=== PATIENT | male | born 1970 | race Caucasian/White ===

== ENCOUNTER 2023-07-23 12:45 | Outpatient (OUT) | payer MEDICARE, MEDICAID, SELFPAY ==
[2023-07-23 13:05] LABS: Hemoglobin 14.4 g/dL (14.0-18.0)
[2023-07-23] MEDS: ALBUTEROL SULFATE 2.5 MG/3 ML VIAL NEB IH (14:51)
--- NOTE | 2023-07-23 14:54 | RT_ITS ---
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 Findings were considered accurate and reproducible, with exception of DLCO which did not meet ATS standards. Both pre- and post-bronchodilator values utilized for spirometry. Spirometry (based on pre-bronchodilator values): -FEV1/FVC: Reduced @ 46% -FEV1: Very severely reduced @ 28% -FVC: Severely reduced @ 48% -There is a positive bronchodilator response in FEV1 and FVC. Lung volumes by plethysmography (based on pre-bronchodilator values): -RV: Increased @ 134% -TLC: Normal @ 85% Diffusion capacity: -DLCO: Moderate reduction @ 55% when corrected for Hb 14.4g/dL Flow-volume loop: -Very severe obstructive pattern Impressions: -Spirometry consistent with a very severe obstruction and a positive bronchodilator response. An elevated RV suggests air trapping. There is a moderately reduced diffusion capacity. Overall study suggests asthma-COPD overlap or COPD with a positive bronchodilator response. Clinical correlation required. Electronically Signed On 07-23-2023 16:18:47 EDT by Ebenezer Frias
== END 2023-07-23 12:46 | disposition home or self-care (01) ==
LOC: CARD 12:46
PROVIDERS: Visit Provider Internal Medicine
DX: F17.219 Nicotine dependence, cigarettes, with unspecified nicotine-induced disorders (principal); Z12.2 Encounter for screening for malignant neoplasm of respiratory organs; J44.9 Chronic obstructive pulmonary disease, unspecified
CPT/HCPCS: 36415; 85018; 94060; 94726; 94729; 99407

== ENCOUNTER 2023-07-29 08:26 | Outpatient (OUT) | payer MEDICARE, MEDICAID, SELFPAY ==
--- OUTSIDE RECORDS SUMMARY | 2023-07-28 08:47 | XMS_ITS | CCD ---
Author Organization [facility] Inform ion [facility] Care Team Providers Care Assistant Director Of Nursing Name Role Phone Verma, Bernadine Unavailable KAELYN PALMER Unavailable Unavailab KAELYN Mullins Unavailable Unavailab le VERMA, BERNADINE Unavailable Unavailable Verma, Bernadine Primary Care Provider VERMA, BERNADINE Primary Care Unavailable DEBBIE ERWIN Attending Unavailabl e Verma, Bernadine Primary Care Provider Angelo Rios Unavailable VERMA, BERNADINE Primary Care Unavailable MYAH VALLE Attending Unav ailable MYAH VALLE Admitting Unav ailable MYAH VALLE Referring Unav ailable VERMA, BERNADINE Primary Care Unavailable CECI GTZ Admitting Unavailable QUIN REYNA Attending Unavaila ble Verma, Bernadine Primary Care Provider [phone] Al Solomon Unavailable [phone] SELF, SELF Referring Unavailable DORA VILLAGOMEZ Attending Unavailable VERMA, BERNADINE Primary Care Unavailable ANGELO RIOS Attending Unavailabl AL Álvarez Attending Unavailabl e VERMA, BERNADINE Primary Care Unavailable ANGELO RIOS Attending Unavailabl e VERMA, BERNADINE Primary Care Unavailable AL SOLOMON Attending Unavailabl e VERMA, BERNADINE Primary Care Unavailable ANGELO RIOS Attending Unavailabl e VERMA, BERNADINE Primary Care Unavailable DEVMAURYLY, ANGELO K. Attending Unavailpatria saucedo VERMA, [facility] Primary Care Unavailable Bayron SALINAS, [facility] Primary Care Provider [phone] Jean-Paul MENDIETA, Al G Unavailable Bayron SALINAS, [facility] Primary Care Provider Jean-Paul MENDIETA, Al G Unavailable [phone] Jean-Paul MENDIETA, Al G Unavailable Bayron SALINAS, [facility] Primary [facility] Provider [facility] MENDIET[facility], Al G Unavailable SELF, SELF Referring Unavailable DORA VILLAGOMEZ Attending Unavailable BAYRON [facility] Primary [facility] Unavailable DORA VILLAGOMEZ Referring Unavailable KIKI CHILDRESS Primary Care Physician Jj Stevens Primary Care Physician Jj Stevens Admitting Unavailable Jj Stevens Attending Unavailable Jj Stevens Admitting Unavailable Jj Stevens Attending Unavailable Franchesca Don Admitting Unavailable Franchesca Don Attending Unavailable Casey Morse Attending Unavailable Casey Morse Admitting Unavailable Medications Current Medications Medication Drug Class(es) Dates Sig (Normalized) Sig (Original) acetaminophen 500 mg oral tablet (17 sources) acetaminophen (TYLENOL EXTRA STRENGTH) 500 MG tablet Take by mouth. 0 Active 30 actuat aclidinium bromide 0.4 mg/actuat dry powder inhaler (18 sources) Start: 02-16-2020 take 400 ug by inhalation every twelve hours aclidinium bromide (Tudorza Pressair) 400 mcg/actuation AePB Inhale 1 (one) puff (400 mcg total) every 12 (twelve) hours . 1 each 02/16/2020 Active Start: 10-21-2019 take 400 ug by inhal ation every twelve hours aclidinium bromide (Tudorza Pressair) 400 mcg/actuation AePB Inhale 1 (one) puff (400 mcg total) every 12 (twelve) hours . 1 each 10/21/2019 Active Start: 06-04-2018 take 400 ug by inhal ation every twelve hours aclidinium bromide (TUDORZA PRESSAIR) 400 mcg/actuation AePB Inhale 1 (one) puff (400 mcg total) every 12 (twelve) hours . 1 each 06/04/2018 Active Start: 08-11-2017 End: 06-15-2018 take 1 dose by mouth every twelve hours TUDORZA PRESSAIR 400 mcg/actuation AePB INHALE ONE DOSE BY MOUTH EVERY 12 HOURS 1 each 08/11/2017 06/15/2018 Discontinued Start: 08-09-2016 take 1 dose by mouth every twelve hours TUDORZA PRESSAIR 400 mcg/actuation AePB INHALE ONE DOSE BY MOUTH EVERY 12 HOURS 1 each 08/09/2016 Active [id number] 200 actuat albuterol 0.09 mg/actuat metered dose inhaler (20 sources) beta2-Adrenergic Agonist Start: 06-04-2018 take 2 puff(s) by inhalation every six hours as needed for wheezing albuterol 90 mcg/actuation inhaler Inhale 2 (two) puffs every 6 (six) hours as needed for wheezing . 1 Inhaler 06/04/2018 Active Start: 11-27-2017 End: 06-04-2018 take 2 puff(s) by inhalation every six hours as needed for wheezing albuterol 90 mcg/actuation inhaler Inhale 2 (two) puffs every 6 (six) hours as needed for wheezing . 1 Inhaler 06/04/2018 Active Start: 04-01-2017 End: 04-01-2017 albuterol (PROVENTIL) 2.5 mg /3 mL (0.083 %) nebulizer solution 2.5 mg 2.5 mg, Nebulization, Once (RT), 04/01/17 at 1000, For 1 dose, To be administered as part of Pulmonary Function Testing. Given 04/01/2017 09:09 EST 2.5 mg take 2.5 mg by inhal ation every six hours as needed albuterol (PROVENTIL) 2.5 mg /3 mL (0.083 %) nebulizer solution Take 2.5 mg by nebulization every 6 (six) hours as needed for wheezing. 0 Active albuterol (PROVE NTIL HFA;VENTOLIN HFA) 90 mcg/actuation inhaler Inhale 2 puffs every 6 (six) hours as needed for wheezing. Active albuterol 0.833 mg/ml / ipratropium bromide 0.167 mg/ml inhalation solution (12 sources) Anticholinergic, beta2-Adrenergic Agonist Start: 08-03-2021 End: 01-30-2022 take 3 mL by inhalation four times daily albuterol-ipratropium Inh Jamilah 3 mL UD 3 mL, Inhalation, QID for 30 day(s), 360 mL, Refill(s) 5, [facility]/pharmacy #[id number], 178, cm, 08/03/21 10:30:00 EDT, Height/Length Dosing, 175, kg, 08/03/21 10:30:00 EDT, Weight Dosing Start Date: 08/03/21 Stop Date: 01/30/22 Status: Ordered Start: 08-03-2021 End: 01-30-2022 take 3 mL by inhalation four times daily albuterol-ipratropium Inh Jmailah 3 mL UD 3 mL, Inhalation, QID for 30 day(s), 360 mL, Refill(s) 5, [facility]/pharmacy #[id number], 178, cm, 08/03/21 10:30:00 EDT, Height/Length Dosing, 175, kg, 08/03/21 10:30:00 EDT, Weight Dosing Start Date: 08/03/21 Stop Date: 01/30/22 Status: Ordered Start: 02-16-2020 take 3 mL by inhalat ion every six hours as needed ipratropium-albuteroL (DUO-NEB) 0.5-2.5 mg/3 ml nebulizer Take 3 mL by nebulization every 6 (six) hours as needed for wheezing Dx: J44.9 . 270 mL 11 02/16/2020 Active Start: 10-09-2019 ipratropium-al buteroL (DUO-NEB) 0.5-2.5 mg/3 ml nebulizer solution 3 mL Start: 06-17-2019 take 3 mL by inhalat ion every six hours as needed ipratropium-albuteroL (DUO-NEB) 0.5-2.5 mg/3 ml nebulizer Take 3 mL by nebulization every 6 (six) hours as needed for wheezing Dx: J44.9 . 150 mL 6 06/17/2019 Active albuterol 90 mcg/actuation inhaler (4 sources) Start: 06-04-2018 take 2 puff(s) by inhalation every six hours as needed for wheezing albuterol 90 mcg/actuation inhaler Inhale 2 (two) puffs every 6 (six) hours as needed for wheezing . 1 Inhaler 11 06/04/2018 Active Start: 06-04-2018 take 2 puff(s) by in halation every six hours as needed for wheezing albuterol 90 mcg/actuation inhaler Inhale 2 (two) puffs every 6 (six) hours as needed for wheezing . 1 Inhaler 06/04/2018 Suspended atorvastatin 20 mg oral tablet (17 sources) HMG-CoA Reductase Inhibitor Start: 03-24-2017 atorvastatin (LIPITOR) 20 MG tablet azithromycin 250 mg oral tablet (2 sources) Macrolide Antimicrobial Start: 11-24-2019 azithromycin (Zithromax) 250 MG tablet Take 2 pills on day 1, and then 1 pill a day for 4 days. . 6 tablet 0 11/24/2019 Active fluticasone propionate 0.05 mg/actuat metered dose nasal spray (11 sources) Corticosteroid Start: 06-04-2018 End: 06-04-2019 take 2 spray(s) nasal route once daily fluticasone propionate (FLONASE) 50 mcg/actuation nasal spray Instill 2 (two) sprays into each nostril daily . 16 g 12 06/04/2018 Active Fluticasone 500 McG-Salmeterol 50 McG/Dose Blistr Powdr For Inhalation (3 sources) Corticosteroid, beta2-Adrenergic Agonist fluticasone-salme terol (ADVAIR DISKUS) 500-50 mcg/dose diskus inhaler Inhale 1 puff 2 (two) times a day. Active 60 actuat formoterol fumarate 0.005 mg/actuat / mometasone furoate 0.2 mg/actuat metered dose inhaler (16 sources) Corticosteroid, beta2-Adrenergic Agonist Start: 10-21-2019 take 2 puff(s) by inhalation twice daily mometasone-formot justin (Dulera) 200-5 mcg/actuation HFAA Inhale 2 (two) puffs (400 mcg total) 2 (two) times a day Rinse and spit after use . 1 Inhaler 11 10/21/2019 Active Start: 11-27-2017 End: 06-04-2018 take 2 puff(s) by inhalation twice daily DULERA 200-5 mcg/actuation HFAA Inhale 2 (two) puffs (400 mcg total) 2 (two) times a day . 1 Inhaler 11 06/04/2018 Active Start: 03-22-2017 DULERA 200-5 m cg/actuation HFAA furosemide 40 mg oral tablet (17 sources) Loop Diuretic Start: 02-10-2020 furosemide (LA SIX) 40 MG tablet TAKE 1 (ONE) TABLET DAILY NEEDED FOR SWELLING 0 02/10/2020 Active Start: 04-15-2014 End: 10-10-2019 take 1 tablet by mouth once daily furosemide (LASIX) 40 MG tablet Take 40 mg by mouth daily . 0 04/15/2014 10/10/2019 Discontinued glipiZIDE 5 mg oral tablet (7 sources) Sulfonylurea take 1 tablet by mouth twice daily before mealtime glipiZIDE (GLUCOTROL) 5 MG tablet Take 5 mg by mouth 2 (two) times a day before meals . 0 Active 200 actuat ipratropium bromide 0.017 mg/actuat metered dose inhaler (12 sources) Anticholinergic Start: 1 take 2 puff(s) by inhalation twice daily Atrovent HFA 17 mcg/actuation inhaler INHALE 2 (TWO) PUFFS 2 (TWO) TIMES A DAY . 12.9 Inhaler 3 03/13/2020 Active Start: 02-16-2020 End: 02-15-2021 take 2 spray(s) nasal route three times daily ipratropium (ATROVENT) 0.03 % nasal spray Instill 2 (two) sprays into each nostril 3 (three) times a day . 30 mL 11 02/16/2020 02/15/2021 Active Start: 12-01-2019 take 2 puff(s) by in halation twice daily ipratropium (ATROVENT HFA) 17 mcg/actuation inhaler Inhale 2 (two) puffs 2 (two) times a day . 1 Inhaler 3 12/01/2019 Active isopropyl alcohol 0.7 ml/ml medicated pad (5 sources) Start: 12-19-2019 Alcohol Prep P ads PadM USE 1 PAD DAILY 0 12/19/2019 Active ammonium lactate 120 mg/ml topical lotion (7 sources) Start: 08-11-2019 ammonium lacta te (LAC-HYDRIN) 12 % lotion 3 ml liraglutide 6 mg/ml pen injector (17 sources) GLP-1 Receptor Agonist Start: 03-22-2017 VICTOZA 2-ACOSTA 0.6 mg/0.1 mL (18 mg/3 mL) Pen Inject 1.2 mg under the skin daily . 0 03/22/2017 Active Start: 03-22-2017 VICTOZA 2-ACOSTA 0.6 mg/0.1 mL (18 mg/3 mL) Pen lisinopril 2.5 mg oral tablet (7 sources) Angiotensin Converting Enzyme Inhibitor take 1 tablet by mouth once daily lisinopriL (PRINIVIL,ZESTRIL) 2.5 MG tablet Take 2.5 mg by mouth daily . 0 Active metFORMIN hydrochloride 1000 mg oral tablet (17 sources) Biguanide Start : 08-16 take 1 tablet by mouth twice daily at mealtime metFORMIN (GLUCOPHAGE) 1000 MG tablet Take 1,000 mg by mouth 2 (two) times a day with meals . 0 08/16/2016 Active methylPREDNISolone 4 mg oral tablet (2 sources) Corticosteroid Start : 08-03 End: 08-09 Medrol 4 mg Tab = 1 packet(s), Oral, As Directed, as directed on package labeling, X 6 day(s), # 21 tab(s), Refills(s) 0, Pharmacy: [facility]/pharmacy #[id number], 178, cm, 08/03/21 10:30:00 EDT, Height/Length Dosing, 175, kg, 08/03/21 10:30:00 EDT, Weight Dosing Start Date: 08/03/21 Stop Date: 08/09/21 Status: Ordered Start: 10-09-2019 End: 10-09-2019 methylPREDNISolone sod suc(P F) (SOLU-medrol) Injection 125 mg montelukast 10 mg oral tablet (20 sources) Leukotriene Receptor Antagonist Start: 11-27-2017 End: 06-04-2018 take 1 tablet by mouth once daily montelukast (SINGULAIR) 10 mg tablet Take 1 (one) tablet (10 mg total) by mouth nightly . 30 tablet 11 06/04/2018 Active take 1 tablet by mouth once nestor elukast (SINGULAIR) 10 mg tablet Take 10 mg by mouth nightly. Active omeprazole 40 mg delayed release oral capsule (19 sources) Proton Pump Inhibitor Start: 01-21-2018 take 1 capsule by mouth once daily omeprazole (PRILOSEC) 40 MG capsule Take 40 mg by mouth daily . 0 01/21/2018 Active take 1 capsule by mouth once diego ly omeprazole (PRILOSEC) 20 MG capsule Take 20 mg by mouth daily. Active penicillin v potassium 500 mg oral tablet (1 source) Start: 06-15-2018 End: 06-22-2018 take 1 tablet by mouth four times daily penicillin v potassium (VEETID) 500 MG tablet Take 1 (one) tablet (500 mg total) by mouth 4 (four) times a day for 7 days . 28 tablet 0 06/15/2018 06/22/2018 Active predniSONE 20 mg oral tablet (14 sources) Start: 11-21-2020 predniSONE (DE LTASONE) 20 MG tablet Indications: Chronic obstructive pulmonary disease with acute exacerbation (HCC) TAKE 2 TABLETS BY MOUTH FOR 4 DAYS THEN 1 TABLET FOR 4 DAYS . 12 tablet 0 11/21/2020 Active Start: 05-30-2020 End: 11-21-2020 predniSONE (DELTASONE) 20 MG tablet Indications: Chronic obstructive pulmonary disease with acute exacerbation (HCC) Take 2 tabs x 4 days then 1 tab x 4 days . 12 tablet 0 08/18/2020 11/21/2020 Discontinued Start: 11-24-2019 predniSONE (DE LTASONE) 10 MG tablet Take 2 pills daily for 5 days, then take 1 pill daily for 5 days, and then stop. . 15 tablet 0 11/24/2019 Active Start: 10-10-2019 take 4 tablets by mo [facility] once daily, then take 2 tablets by mouth once daily, then take 1 tablet by mouth once daily predniSONE (DELTASONE) 10 MG tablet Take 4 tabs PO daily x 3 days, then 2 tabs PO daily x 3 days, then 1 tab PO daily x 3 days . 21 tablet 0 10/10/2019 Active Start: 10-10-2019 End: 10-10-2019 take 2 tablets by mouth once daily predniSONE (DELTASONE) 20 MG tablet Take 2 (two) tablets (40 mg total) by mouth daily for 5 days Start: 10/10/19. 10 tablet 0 10/10/2019 10/10/2019 Discontinued TUDORZA PRESSAIR 400 mcg/actuation AePB (1 source) Start: 08-09-2016 take 1 dose by mouth every twelve hours TUDORZA PRESSAIR 400 mcg/actuation AePB INHALE ONE DOSE BY MOUTH EVERY 12 HOURS 1 each 08/09/2016 Active Completed/Discontinued Medications Medication Drug Class(es) Dates Sig (Normalized) Sig (Original) aspirin 81 mg chewable tablet (1 source) Platelet Aggregation Inhibitor, Nonsteroidal Anti-inflammatory Drug Start: 10-09-2019 End: 10-09-2019 aspirin chewable tablet 324 mg Start: 10-09-2019 End: 10-09-2019 aspirin chewable tablet 324 mg betamethasone 0.5 mg/ml / clotrimazole 10 mg/ml topical cream (5 sources) Azole Antifungal, Corticosteroid Start: 08-21-2018 End: 10-10-2019 clotrimazole-betamethasone (LOTRISONE) cream Apply to jamie rectal area three times a day for four weeks 0 08/21/2018 10/10/2019 Discontinued 60 actuat budesonide 0.16 mg/actuat / formoterol fumarate 0.0045 mg/actuat metered dose inhaler (2 sources) Corticosteroid, beta2-Adrenergic Agonist Start: 03-01-2019 End: 02-29-2020 take 2 puff(s) by inhalation twice daily budesonide-formoterol (Symbicort) 160-4.5 mcg/actuation inhaler Inhale 2 (two) puffs 2 (two) times a day . 1 Inhaler 11 03/01/2019 02/29/2020 Suspended 12 hr buPROPion hydrochloride 150 mg extended release oral tablet (14 sources) Aminoketone Start: 12-22-2017 End: 06-15-2018 take 1 tablet by mouth twice daily buPROPion (WELLBUTRIN SR) 150 MG 12 hr tablet TAKE ONE TABLET BY MOUTH TWICE A DAY 60 tablet 12/22/2017 06/15/2018 Discontinued Start: 11-25-2016 End: 10-10-2019 take 1 tablet by mouth every twelve hours buPROPion (WELLBUTRIN SR) 150 MG 12 hr tablet Take 150 mg by mouth. 0 11/25/2016 10/10/2019 Discontinued Start: 11-25-2016 End: 11-25-2017 take 1 tablet by mouth twice daily buPROPion (WELLBUTRIN SR) 150 MG 12 hr tablet Take 1 (one) tablet (150 mg total) by mouth 2 (two) times a day. 60 tablet 11 11/25/2016 11/25/2017 Active docusate sodium 50 mg / sennosides, correction 8.6 mg oral tablet (10 sources) Start: 08-16-2016 End: 10-10-2019 senna-docusate (SENNA-S) 8.6-50 mg Take by mouth. 0 08/16/2016 10/10/2019 Discontinued microencapsulated potassium chloride 20 meq extended release oral tablet (19 sources) Start: 04-15-2014 End: 10-10-2019 take 1 tablet by mouth once daily, then take 1 tablet by mouth potassium chloride SA (K-DUR,KLOR-CON) 20 MEQ tablet Take 20 mEq by mouth daily . 0 04/15/2014 10/10/2019 Discontinued Sodium Chloride (1 source) Start: 10-09-2019 End: 10-10-2019 sodium chloride (PF) (NS) flush 5 mL triamcinolone acetonide 1 mg/ml topical cream (3 sources) Corticosteroid Start: 02-12-2020 End: 06-16-2020 triamcinolone (KENALOG) 0.1 % cream umeclidinium (2 sources) Anticholinergic Start: 03-01-2019 take 1 puff(s) by inhalation once daily umeclidinium (Incruse Ellipta) 62.5 mcg/actuation DsDv Inhale 1 puff daily . 1 each 03/01/2019 Suspended Start: 03-01-2019 take 1 puff(s) by in halation once daily umeclidinium (Incruse Ellipta) 62.5 mcg/actuation DsDv Inhale 1 puff daily . 1 each 03/01/2019 Active Problems Active Problems Problem Classification Problem Date Documented Da te Episodic/Chronic Chronic obstructive pulmonary disease and bronchiectasis (20 sources) Centriacinar emphysema; Translations: [Acute exacerbation of chronic obstructive airways disease] Onset: 11-25-2016 11-25-2016 Chronic Disorders of teeth and jaw (2 sources) Other specified disorders of teeth and supporting structures; Translations: [Other specified disorders of teeth and supporting structures] Onset: 06-15-2018 Nonspecific chest pain (1 source) Chest pain; Translations: [Chest pain, unspecified type] Episodic Screening or history of mental health and substance abuse (16 sources) Tobacco user; Translations: [Tobacco abuse disorder] Onset: 11-25-2016 11-25-2016 Chronic Substance-related disorders (4 sources) Cigarette smoker ; Translations: [Nicotine dependence, cigarettes, uncomplicated] Onset: 04-01-2017 04-01-2017 Chronic Unclassified (20 sources) Obstructive sleep apnea syndrome; Translations: [Obstructive sleep apnea (adult) (pediatric)] Onset: 11-25-2016 11-25-2016 Chronic Unclassified (1 source) ERRONEOUS ENCOUNTER--DISREGAR D Past or Other Problems Problem Classification Problem Date Documented Da te Episodic/Chronic Disorders of teeth and jaw (1 source) Toothache; Translations: [Pain, dental] Episodic Other lower respiratory disease (16 sources) Paroxysmal nocturnal dyspnea; Translations: [Dyspnea, unspecified] Onset: 01-23-2018 01-23-2018 Episodic Residual codes; unclassified (5 sources) Tobacco user; Translations: [Tobacco use] Onset: 11-25-2016 Episodic Substance-related disorders (13 sources) Cigarette smoker ; Translations: [Cigarette Smoker] Onset: 04-01-2017 04-01-2017 Episodic Unclassified (20 sources) Edema of lower extremity; Translations: [Cigarette smoker ] Onset: 11-25-2016 11-25-2016 Episodic Results Test Name Value Interpretation Reference Range Facility Physician Orderon 03-28-2023 Physician Order [id number] #1.00TIFF [facility] Consent for Treatmenton 11-26 Consent for Treatment [id number] #1.00TIFF [facility] Physician Orderon 12-23-2022 Physician Order [id number] 8#1.00TIFF [facility] XR Chest 2 Viewson 3 XR Chest 2 Views Exam Date/Time: 12/23/2022 11:45 EDT Reason for Exam: J44.1 Report IMPRESSION: MINIMAL LEFT BASILAR ATELECTASIS. CLINICAL INFORMATION: J44.1 COMPARISON: 08/16/2022. FINDINGS: Two views of the chest were obtained. Heart and mediastinum appear normal. The previously seen minimal discoid atelectasis in the left midlung is no longer identified. There is minimal left basilar atelectasis. The lungs appear clear, otherwise. Visualized bony thorax and remainder of the chest appears unremarkable. Ordering Provider: Casey Morse FINAL REPORT Dictated: 12/23/2022 1:07 pm Van Moses M.D. Signed (Electronic Signature): 12/23/2022 1:07 pm Signed by: Van Moses M.D. Transcribed by: ELIZABETH Technologist: GISELLE Technical Comments Radiation Dose: Ka,r in mGy = . DAP = . Normal [facility] Consent for Treatmenton 07-26 Consent for Treatment [id number] #1.00CD:127 [facility] Physician Orderon 08-16-2022 Physician Order [id number]#1.00CD:127 Normal [facility] XR Chest 2 Viewson XR Chest 2 Views Exam Date/Time: 08/16/2022 10:45 EDT Reason for Exam: J44.1 Report IMPRESSION: SHALLOW INSPIRATORY VOLUMES WITH MINIMAL PROBABLE LEFT MID TO LOWER LUNG ZONE ATELECTASIS. EXAM: XR Chest 2 Views DATE: 08/16/2022 CLINICAL HISTORY: J44.1. COMPARISON: 05/22/2022. TECHNIQUE: Upright PA and lateral radiographs of the chest were obtained. FINDINGS: Shallow inspiratory volumes are present with minimal probable atelectasis of the lateral left mid to lower lung zone. Mild probable atelectasis or scarring of the right lung base appears similar. There is no other significant infiltrate, cardiomegaly, vascular congestion, sizable pleural effusion, pneumothorax, or displaced fractures identified. Ordering Provider: Franchesca Don FINAL REPORT Dictated: 08/16/2022 11:31 am Brian Barboza MD Signed (Electronic Signature): 08/16/2022 11:31 am Signed by: Brian Barboza MD Transcribed by: ELIZABETH Technologist: HH Technical Comments Radiation Dose: Ka,r in mGy = na DAP = na Normal [facility] Coding Summary.on 05-30-2022 Coding Summary. CD:[id number] Ww+PGhlYWQ+WX9ELLBxG 00fkJGioW5oH9MMKEdVX ywgQVBQTElOSyIgbmFtZ I0arMBkILXa IC8+NG7oHPYxZpmwfUTi m5W0gRS2G23xch3bTNte zIL6EKFtGyUbwffgv0mv yKm6SUsdKpmqEbJu CEVqkG37UDL0jA82Lb65 vIBbbTIyr9fmxAp3QnQr BKVmDVU1iRtmKAlgm6Yw QMIuC52wdWWst9T0 IGNvbGxhcHNlOyBlbXB0 vG4tCUmzpprvj2uuftbe Cvq2td60zMHat7H5aKM6 D8WgyjC9EFRdrYXo CughaMIXsZ6mhcfvk3or eilrGuJiQJWtXNh0IVu0 IKJugRbbPsGsSB84JRL2 BYHewkGtP3ZyXCYq rNpxDmY8w0M0Lu1SU3JU VhzeY0JRNGMSURgimSF+ DV26kn11W3IzOwecXca3 KGIdCGV9rEA7lP5j CBWwWHgrb7C7wSD5J3Po ytHtyt5fy6iyQJZjBUsn T16zvRMrq3Z4XLCltYV7 UKBwbGjbUoAdlZ59 Oyc+AFHljFvkg6IeAuce k2skb4ygtMz8MikfSJHj nxRabUslWON0x4GwVw5i HIQtdDC0lXE3bP7k DnCeSdE7MJuoC208LsJh lIRlFurrH76oJ1FcnAJ+ TTCzWmz1DGIebBhlQD3e F0LiRNVowfrulUFb uPmpXH0oFQXuhmwbSSVg uO9vHXMhB3m5GrWpPaM2 GSfyJ6NwGQIjbmewRg57 uY7rAoCaZrY6JRuj W5LqsmD2YCUpeEVlZCdd ZFL0L92jw5J8KSEaEQXv KAF7rND0mK4maMczgwtx bGVmdDsgdmVydGlj CIaaYFoaK509EWIqfIsj PkNvZGluZyBEYXRlOiAg MDQvMDYvMjAyMzwvdGQ+ SDSiGIX4tWifHSRp nDZjWQekTo2phRifhYcr OU5rCWHgowyjYUKwwG5h CDZfoZPpgKecEM8cKTQg iiubx288MnOiMBL5 RTZaaJMlJ5CbcF2yZhIj KXMhLRAyL1UdvMFgADie M291KSvhDlN8BZQxyhSp U8YuXPPqnRnxJoI4 c4H3Or9Ko4SpcfwbP8Vo yJDoXmLtLgytKCl4K8Yl PjwvdHI+UE34OIAiYW40 GMm9TMK1vJusBNdw GKPfX0UlcP3xHcJhZGWg ZGRkOyc+PHRhYmxlIHdp ZHRoPScxMDAlJyBzdHls GC0fQe5iJWNwIOMs uTwzySIpWgIsm6wsYZJp WIwaEK1lwJtwI5HtjOI9 BQDhb2b4So91D91gV0Ee dXA+OEKwfEL1bXA4 kB9yVhWiLsM5RAfrS854 DvQxbAZlCojhp5tfg0nx oNk4VdI8JBWumfQrnYxf NAH9c2JkLt38H48g IHdpZHRoPSIxNSUiIHZh qDlbqt7nnU6cCj8+PGNv ySO2jJR6jP4hOxZpGfJ3 PLsxE267GrOujGTm Djxtx0fym1fnlFa3UjIp AHAhhuMytShdBVU2n7Lc Vb33S3RaqZiup2DqXkn5 gi18nQXmz6Y3cSY6 I2BdHYHhmlzqpYOhvCxi NK9uSEZvqnekXZKpcD8p SNJxK4h5KaYwCdS6TCsy V0QnbrW7XCRzgWPb KZEbwNVWaP4likoum3nz lryoEzGnUDUiCOj2ESk5 XZHydZjuGiFgSIV0PpU5 BHX5hCYryH2fpSpv mzmovM2vUod+YQM7nAQr sELFOK2lLwsoaFB+PHRk TAZ9eGjiSOieFXKihR6k OJIvM1k7MkJyHyN3 NQlnB4NtliN0AOQgkEYs GDWpvLZTxC5khpqry1xu nstwAbVnDCSvXGo2YKi8 LWFsaWduOiBsZWZ0 JjQ1MFO5pDDleE1joUxz xgaxdU5iOev+QmlydGgg BZR0VFr5I7OcVul9NMHl iGqmOV2viXQaCPbf Ns0bqKqiyPxpDH3sVWJx mxmvb771LhHkt0phUFNw rIJdBMsvLJW2Q60pn7H4 ULPaIQFrQBI4zZC3 oL4mfLpannoglUEhrRoo kdEmzBrmWOlzRDhqT000 IKPryEgxWwQdBQf7Q2Uk Idj5NXFqpLgxNP7p dNUcOAsoKy3kiQapjTfo OJ8sYMAosuuos278ItZi p3chHNDsqTJzURtmHEZ0 Y23ds2R5AXTnOHZl OVJ7hLL2dU5hhBolgxvw bGVmdDsgdmVydGljYWwt TFgyO728DDYouFefSrHr kGz0D5DyAie2OZFg bAnoXY9pvXYlNYodPi9s bGqauUpuAK6bBPGocdej o546OnExf8dkUWRitBWh XAfkCLB3M87rp3O6 MXAqVFRjMOZ4uAO0iW0u bGlnbjogbGVmdDsgdmVy dQqfAQlfJDcsK035DXKx cDsnPlBhdGllbnQg HHngEIo7Q9EuLikvsOB+ ON95FFQrJU05yUQqtMEx n8nfpXj3KnKvNANfCKU6 gOqdBZlue4QyIUHy K62bdJGab1X3TCObqOqw qANgOsGifQX0cA7bVKwa acozy5fklcunTofrq9dt zk78vS76V02cWYyu ZHRoPSIzMCUiIHZhbGln vd8gaJ9cVz3+PGNvbCB3 rOO9kA6yCNGrAuW3LRcb Q387ZhPflMArUngw z6clk8lkuNt3VrK7FHHs yfCzyAqsUEM3g1IiSp30 Y03aEMuwQYBqOJViMBEx ARDtnOlhvl3vpP9u Ii8+SDJepIW6aHI5vV2c FtFuBgX2IReiH605RlPi fBIvDgenW93eM2BllKV+ GDKrBka6FCZgrHvu TS5wnGWqEFhbPu8rDDT1 KbVhPxFrCCbtD5NrVZLq rdflnaaoaHS2PUMzIFOq pD08Zi0qhUqxPTRz gFAWjD2eudrrh4nzkhql WpRrKGSvHTu4BRm2PBQs uHmhUyYbOIN2AhY3IDH0 uUIqmF3wpRawawzi mA3fG1CfLFSoljmeSu58 cA0kZtXlLrP7RRywGei+ DsKDYckCSBflMOEZKA3G BMTeUZqPJJ53H9Vr Dkl6SILgcIrgHJ9jgTXv JLtoUt0zeSqczOddTJ5q HNQdxonmCSSypD6qFQLs eGOgmSlsGO8cAEXt ykkaf588ZhBsWPD0JRSa yPSbN9OquO4pSkEuTEQt VTUmY6UrbWBeZUcoV645 LHifDuF5CMIctoFb A7ZkBDRnnDfsDrS8t5I1 Ju6rYA7zUH2qPYjjIO26 KM94xXXcf3Y4vVF4G3Il ZGRpbmctcmlnaHQ6 DEVrIBPguH06bUWmRTrw Xp4mg5I4l331DKYqTNCh oV05Ur0umEadSOTpdPZY eK3trlcqq7jvggnk PcBrTZGhHAe2UAw3KSQy eBhdAzAkUAC1XzN6TNM8 hUKwbW8ovWrallylgF0n Oyc+NTIgWWVhcnM8 A6EwJbp0RSGfxKgdTE8z nVThTNdxAj8glLtseRzy GO8nELDfjcusWJDgdS9o NHSsvPXrjImsVQ7m UJGglzams800OcHoGXE0 TSKcpTObK9EqeU7qJnKw QCMnNIWhD1GzsGVjEPyz H450WSpaUiB8RLNf ldWmQ0IcSOQtfTduQiJ0 h9W8Zm9SFUhzJH00NQ39 wLJmp8X3vTE3O5HuYSLa ijeynzebrOO9GHJs RGKolJ62hCQcBZodNn0q j9A7o014TDDcNGXhdA12 Ph3feNkxVWYyfYVNeK5n wwgvu0hqmvcuObUu UAOxXMz5SQb8OYRuwYyf EzOiNDK0WqR2SQN9fDYc dT3noDqdjiokzZ1yDqp+ P7T2lLV4cYVbhAlk dGQ+TM63su55H0NlYpqu Msm9GXWoQNA2zBO0oD4g UIRyDMacu0Z5iSH1L1Se jgDxhc4dm3oeXDGp WSxxP33ruAUmg8N0SWTv uTR9ETTtlJdhHvLobQ36 Oyc+CGFsqHuog6LiPxdr b2hzk4fmkGf9EmYq CCDlgyTtfBigLDM5w9De Ho21T52bNHrzINBkUUKo NFEmALGdoOfkyv8xaQ1p Ii8+JGNlyYD1cZO1 kA4tRyPdEgA2XUorY481 YvRgoXMoOqybt8yqx5jv tNm1FjOhVVKjtoQnaYwu TAH1y9IcRw27X5Wl vIchi7KuFps4eg32eLXr y5S9fPV3E3VqEQBjtqba vGRejVarWE4gDSJytyih PUTukC0lVLPwS7m3 EaBcHvQ3HTtkF9DoxyY2 OACfpPBnUPPkvAMVeI4v jzkqd1yeerkyXbCwETKt JZy1ENu9HVYooLiq GpJfFZD6OzL7AGU5mXWj iO6ogFhoytfnnH9vDdi+ ABr4n0sxgHDiZZ7vbPY5 ZK97NE96tNZzd9N0 qXD0W6GvSGFpvtmzwouo xQP0JYBkTNRqoY96Uv6q nStxIv3aHAMlLLA1JYCk sBYmL6MjzB6mZuDv GCDhTUYsS9GyiTEqDYnm W976RSqvQrU2KTGfjcSo Z4MuIBXcnIudMeF3d9J6 On1SOD63VB23CA88 uCZci6H4lCT1S7WrSVSq bbtlkuglaQK3ZBElJLIn xY23Mr2tcZzgSv5kAEWl UOZ3APCggLVzI8Vf lO3kJzYjSOCgNQZsA8Zs zAQjAAaqJ833FFzoFxE5 VUBvpdLtT3JuHYRqcYxq EhU0e1L2Kx5AAr35 EW10EG06vBFba4X7lMR0 T3QgJLAjxrygwrtktWJ5 EDInOXCvgQ65Xq9goGtj Pc2kRLBtFUC7WDPi uHEjH2NvhA0uNtQeTATw NIDnJ9QhfEPmZJluO402 GWpwHlB4EHLhrkPkN9Vo QIGjhZpcBgJ4w4L2 Ri2CSUopysu4M3TlLlqt dHI+SM67XRZgUH04gWQi rDPuf2aadHr5BxJoZCSx YKS0jXegNQucg8Dv TAVxF17d (more content not included)... Normal [facility] Consent for Treatmenton 04-25 Consent for Treatment [id number] #1.00CD:127 [facility] Physician Orderon 05-22-2022 Physician Order [id number] 3#1.00CD:127 [facility] XR Chest 2 Viewson 3 XR Chest 2 Views Exam Date/Time: 05/22/2022 09:39 EDT Reason for Exam: J44.9 Report IMPRESSION: NO EVIDENCE OF ACTIVE CHEST DISEASE. CLINICAL HISTORY: J44.9. Chest congestion. Smoker. COMPARISON: 05/06/2022. COMMENT: The heart is normal in size. The mediastinum is unremarkable. The lungs appear clear. No infiltration nor pleural effusion is evident. No significant change is noted when compared to the prior exam. Ordering Provider: Jj Stevens FINAL REPORT Dictated: 05/22/2022 10:12 am Hollis Ellison M.D. Signed (Electronic Signature): 05/22/2022 10:12 am Signed by: Hollis Ellison M.D. Transcribed by: ELIZABETH Technologist: TOSHIA Technical Comments Radiation Dose: Ka,r in mGy = na DAP = na [facility] Coding Summary.on 05-15-2022 Coding Summary. CD:[id number] Gh0bWw+PGhlYWQ+PE1FV OPfI97jzYZwkO5cJ3BOD ElOSywgQVBQTElOSyIgb mZmIO9mhTIxYSKy IC8+UP7bTOJdBjhzeLNp c1Y4zJQ7M53cvh1lTHru eHN1TXLtOaOyrmeul2kd kIn3GCpaKkndOyIz CCDmqV51DJA6fA35Cw70 tMYowWDts6oixTd4TbBn MWQePGO4lNfdEXrnk4To VOBhC97woBOcf6O1 IGNvbGxhcHNlOyBlbXB0 wQ9zMDvaqowjv5pxtbhb Aux6uz28jIBoy5L6tXU2 S4UnliI5ZETjjXAt RldgxTGYcB9kymbnk3ww uzvhHtJsDQPvFZk3PIv8 OYJncEasXwUtJK14XTF9 JWIyohFiO1VhYLAz lNtdZiY8s6C7Ae0RP9QV SrbvK2VUHXMCBUagcEG+ UL84kf15E7JxSnlsEkc9 FTRmKGK4mWT1zE4d UQWqEQiiy8C6pUM3R4Iv isBddz2hz9oyXBTbMFqh R10uvFWqs3G9QPXbzWZ2 NZHsyAppGnMmhX54 Oyc+DNTmbYehb5YzQuqt f3iwb0ipmVa9JovgTZRb ijDjwPwpGEX6s4FhYp5p TTHhhEK2mLK1uD9r HiCiRdT7ZYqkS305NmQp tHQzRruwR59oX4UpeZY+ LTLwDrz4OYMvtCqbFV2h G8EkICVqeyrewANk vMbgOZ3xFPSvmnxwINAk eS3aLEViE5v5BxYgVzL1 WNijB2CyAIDsthsxXb20 vQ1hEeEpFuC1BAfl Q5AgujI1LCVraWKgUMfl GOK3W18fb0W2CHZjVCWb HIR8lXB3oD3lkCazkjzj bGVmdDsgdmVydGlj RBnaZJksI469RZOnvKmb PkNvZGluZyBEYXRlOiAg MDMvMjIvMjAyMzwvdGQ+ JJGjSGA9hKoiQSLo bXKeSFsrJp9aaGxisMll FR0cXBDycofpRXQfcK4o HAQmsAGgkHueOR5eROAn klafi959BdSeVTL7 UGZxmMRkD7BbgN5aDbUh KBKrHQGrK0VdgJGwRLan U188TYtpMkS8OKDquyBc K2YpPSIsgLuoHjF0 a2G0Ja0Pn9VqvblmR4Hb uTTlEnIoNnbjUUm5T0Dd PjwvdHI+LZ09HSEnDA60 SOu5ASU2wCfoBBzc ZVVgY3TevK2pXzOgVXAz ZGRkOyc+PHRhYmxlIHdp ZHRoPScxMDAlJyBzdHls TV6iDa3nMALeCGFo qIqbvZQgFzClv2eeDPAv NAuuWG5thSbhR3OxcVF3 HBNnl3v6Np55R73dD9Ho dXA+FPJfiNM4mLD8 dQ6xPcOdTyR9MEguI998 EfVvdPGaClltm1yga4lg cOz0LjT2FNJvviBhmBwb FHL1c9ZgKv96S91j IHdpZHRoPSIxNSUiIHZh tPplbc2qkT1uVl1+PGNv dLD0rHX8xX8vMbMoDcZ7 RFebL475BrYciNDq Bqfzs8nuy3lvtIo9YjOa XEEykdQynKpbYUB7b4Bn Zo23K8YqcMlav5XsJwr4 tk04vTIwt3G7hUA1 O3GmIWGosfjzoQSwaHep KN4aQDDmcmylOLWvdP7g RQGvR4m2EqYpXeU1NFix R8LuwhP4ITMlnSYc ZAPgkEHDnO5ldbvxn2hp hozgWcIgIWMpFCu3SWh9 OICzeWneUsZmRRP4TqC6 PBP2oOAcoX6yqCeg xawcxG0qExy+TDM8pSWi zDCPUR0fLnnjmHF+PHRk URE9cRgnVIxyBVLjzU6a RDRcW3d9GrPmHrX9 IQgeA4IjgnJ1ZDVqnOGo AVRaxMVQqK3rfqjup7km eyvbCwYnVSDoSZe9MSv8 LWFsaWduOiBsZWZ0 EfB3CJY8xAIpeR7ruDsj chgyrU9wQod+QmlydGgg AGZ4UMb8J5FyWfz4HWEy sZobPI5owGPuNMjb Wj4dzTxkcZsiOP4wQRLl usjxs503RfVjc8tkMZQn yCStGPslUPQ1B17jl3D8 EGIbYOZcBJB0aJX4 xP4dcApddirxsQZluZbc ntDsdVzfESwkWKnwU793 AACuaDmnGuTcFMc1Q2Tb Lby7XDOxiToeWL4x sUZoEFzbLb2zsGkfuVbh EC9bNPXhgxjsg614BtFs v4pmYRWeiYMrVOroZUK0 N05qy5Z3DPBuVJIn BZZ2jYZ6lH9byAcbvesn bGVmdDsgdmVydGljYWwt OUeoR357DPNwuNjpTbJt qKl6K0IzCls3HHVi wPspRQ1ewPUnIRfqBk7r kHyluQwgEP8cWTHzilhu u432LeAhy8siXHVhmPSi XKdyKFL7Z15il0N6 HJRjFAZhKZP5yFD2iA3v bGlnbjogbGVmdDsgdmVy nFtsSLcaZVioC051NEUd cDsnPlBhdGllbnQg NOpfWMo3M8QhOhaodOV+ TK68ZUHxIM10yQOayGMe p9jyyAk3FwTzOBVcRUR0 cVqwSFvka8QaMQKq Y85lzVUwe9U2MOGnvYol nVYlJuIzlFE0pC1hRIbq lqadf9uowizkEthkr6uh oo69hC90G46oZPfv ZHRoPSIzMCUiIHZhbGln sl4bzG5aFa9+PGNvbCB3 tRA0jK0wEBWwBoJ0ESjb J130DhUshQNoBfra j4sfn5lbcOh0BqH1WQFp kgUoaNgpTTW0o3SfOb44 F52yOOvoIMQzUTIbESNm BDBrxTdpgf5quC8q Ii8+PGLvoWP5fMC0yG7e YtIdDlX6JMzwN031FlTk aTUtImelB92yE3OenAF+ XNVeQrg0ZTMxxHky EM7dlFNvMIkyOk6dUCL3 RgSaAfHqRJzlX1RdVEUl ifgkavsmkGA1NOFcAEBo nE45Go2mxJwaCBDl jWDRlF9oebmcp0adoszz ZtAkWCGiBHv9WJm6UKVp vOuhBkKvJLP5UrH0LAU1 vKNihC0qgVcxbvov gJ5lQ0SlRWYnmksfFs32 bG8xGnTaApS4FEqsLci+ RcFOCobEBKkpWBDYCX0D DJZeVLqOVN80I4Li Hhy9WZGjgErwRB7guGJz KCdmNu8ejUyizOlqGC6h YBHjiddlTVAneE7wNYQb wGFhaBezFM0tGVFk xlggk271NzFdRKD7WDVk gYXuF6WukZ8sLdYhSGEa VOBvK6OayFDkOOgkS477 XSdsDaK1VOItexQt Z8JnLEWquXnzGnR5g6L8 Jt0gZT8zZH8yCTgnQZ58 RO25tYXvv9C7zSR1I9Am ZGRpbmctcmlnaHQ6 POOpVFDpyL19dKVgZXqq Rk7zi9D3d733LKWbAHEg xE59Mn4drEknRWOvlIIG pK1svdsri2wwutzh CpNeEIZpZAm0AFm7KNAt dPvuHyBsRVI0VeC9NPS8 dKTlcQ5rwRnyusslyI5i Oyc+NTIgWWVhcnM8 L9IsItz8THKmpDurUU3i bZQrSNsfXk9nnIghyDrc PL6dKHGtkzzwHWLkuI4t DLTfcNMtxFqrFK6p MIFhmxszn608OgIzJET2 XZHinYFrN6YtdX6tXcDd JNNaCRXzO9BszRYfUVgf J663ZSgwAhO5FQBy bcTsB8WoRARcgHbzYhF7 r1K7Dt2XOMfaLI72DT57 aCCme9H4xCK0U8XvURXc owhszoqazQD5KNMm FCWajW97jAYbVLalNv8d j2R2d272EFRpGZXpkL46 Uf3qcVxjZFPnbCPAzI9u kisak2vpqbupThHc XSRbHQj3OQq5GCPuwVfc JmBqYUL7HaM0XMI6pETi eL3pnWqougvoeJ5dWov+ R6S5eSX8lBBeaVlg dGQ+UQ29oh72I2XwHtcb Lxw7EGMdDJL5jRJ5kE2x NCSkEYbcp3L6iBX0R1Yx ryPnxv8de7tyEEBz COtiH05dpPCty1J8AQDj iNR3ELUwbDyjTpMyfH81 Oyc+OFKyxIwbh6SqIyrw n5bjb8mkbOy4VtJm HGJesbSbrNrpYPK9c1Pr Db29D96qRVwlPEZsUYJr PINkOFWrfSkpmk8maQ3i Ii8+ZYWlwLA5wCN4 bV8kAnFxSsM7ZRjuA256 XvXueLJpJqcss1ear4en hSr3KdUwBCZyffSikJye MMD8u1JdTl86R7Xr vWxqk7KeVvm2tv03rONa r6K1aGF6Q6KmOTHglzng xZIlgUzuGJ8hPUMtnizh NAJqpX5fCKKoU8c6 CqOjUlY1OQndT8PmigD3 QORupMLgSEKymINKpQ5x akhvt5lmlsbsLaNgYCZy NRq3NHj4LDCxnTqu DaOpEBR0EyS3UPH1eDXd jR9ypJgfwffqxP3fZee+ PUm1i1osoVBkRD7rzIQ7 WL84TX65uLLvg4Z7 zCS5Q9SzNXMhsjkxyyue lOZ7TNNzTAXolB88Hc3k oTutDf3mBMPnATM8HVHk hUBcA3ZpqM8mLsKj GNWhDTAfP9RdjLTrOOsp N893XMkkWeT5LCTyipEw P2NfGIBmyDikEeG4m0S3 Ue1TOV61WN63BH26 qVOmv1P8tJU3T9VsSFMy htsnwxyijKG0DQLgAUEg rR98Su4mgPgrFd4kUTQv YYM0TQZheOXkV9Ba dS9tPmVxAASkUYQoE9Bc nBDmFSivW255USspWeV1 HPZqtuCaZ5YlMPAodLrc KhD9j4Z4Gv9OFv03 FY72UT41xJFyy6O1yWK9 R9KiZCPvwofmckecmSB2 PRVcONGogP10Ue7zgQqf Zy2aDPHaJSD9KOAt eEVaK4NrjL8zLlEfOMLl PUWjC4KgnALkPWllV735 ICeoOnO1PRRajfElF9Xx SKJtzXirZrZ5x6U4 Qf8TGUsewmp0L4SkWugk dHI+HD15PELsUL07gEQf nSPcz7xtoMf7DsNqQSCg PXD2uRmeUFukx3Is ZXIt (more content not included)... Normal [facility] Consent for Treatmenton 04-24 Consent for Treatment [id number] #[id number]:127 Normal [facility] Physician Orderon 05-06-2022 Physician Order [id number]#1.00CD:127 Normal [facility] XR Chest 2 Viewson XR Chest 2 Views Exam Date/Time: 05/06/2022 10:47 EDT Reason for Exam: J44.9 Report IMPRESSION: NO EVIDENCE OF ACTIVE CHEST DISEASE. CLINICAL HISTORY: J44.9. COMMENT: The heart is normal in size. The mediastinum is unremarkable. The lungs appear clear. No infiltration nor pleural effusion is evident. Ordering Provider: Jj Stevens FINAL REPORT Dictated: 05/06/2022 2:58 pm Hollis Ellison M.D. Signed (Electronic Signature): 05/06/2022 2:58 pm Signed by: Hollis Ellison M.D. Transcribed by: ELIZABETH Technologist: MER Technical Comments Radiation Dose: Ka,r in mGy = na DAP = na Normal [facility] POC COVID-19, MOLECULARon SARS-COV-2 (PERES ID) Not Detected Normal Not Detected [facility] Comment on above: Result Comment: This test was performed under the FDA's Emergency Use Authorization (EUA). Testing was performed using the [employer] ID NOW COVID-19 assay on the ID NOW platform. This test has not been approved for use in asymptomatic patients and its performance in this patient population has not been evaluated. Negative results do not rule out the presence of SARS-CoV-2/COVID-19. Fact sheets for the EUA can be found at the following links: For Healthcare Providers: https://www.fda.gov/media/643500/download For Patients: https://www.fda.gov/media/460833/download Performed By: #### P [id number] #### [facility] [address] [place] [id number] Rao Pérez, Ph.d. [id number] POC Troponin Ion 10-10-2019 Interpretation and review of laboratory results Normal [facility] Troponin I.cardiac [Mass/Vol] ng/mL <0.05 ng/mL [facility] XR CHEST PA/APon 10-10-2019 XR CHEST PA/AP EXAMINATION: ONE X-RAY VIEW OF THE CHEST 10/09/2019 10:49 PM COMPARISON: None. HISTORY: ORDERING SYSTEM PROVIDED HISTORY: SOB, cough; TECHNOLOGIST PROVIDED HISTORY: Illness/Other Acuity: Acute Reason for Exam: SOB, cough Cancer History: Surgery, Radiation History: Type of Encounter: Initial Additional signs and symptoms: FINDINGS: The heart and mediastinal structures are stable. The pulmonary vasculature is normal. Patient is slightly rotated to the right accentuating the left pulmonary artery. The lungs are clear. IMPRESSION: No acute cardiopulmonary disease. [employer] Workstation ID: [id number] Dictated by: CHACORTA ROCHA on [facility] Oct 09, 2019 11:08:51 PM EDT Transcribed by: WILLIAMS THOMASON on Sat Oct 09, 2019 11:24:16 PM EDT Finalized by: CHACORTA ROCHA on [facility] 2019 6:06:07 AM EDT [facility] Comment on above: Order Comment: Injur y/Trauma or Illness?:Illness/Other How long have you had these symptoms (acute/chronic)?:Acute Reason for exam?:sob, cough History of cancer?: Surgeries, chemotherapy, or radiation?: Type of Exam?:Initial Additional signs and symptoms?: ECG 12-LEADon 10-09-2019 Myah Valle MD 10/09/2019 11:34 PM EKG 12-lead Date/Time: 10/09/2019 11:34 PM Performed by: Myah Valle MD Authorized by: Myah Valle MD Interpreted by ED attending physician Comparison: compared with previous ECG from 01/23/2018 Similar to previous ECG Rhythm: sinus rhythm BPM: 85 Conduction: LAFB QRS axis: left T Inversion: aVL MD Interval: 168 QRS Interval: 88 QT Interval: 433 Clinical impression: non-specific ECG [facility] POC CBC and Differentialon 0 10-09-2019 Basophils (Bld) [#/Vol] 0.06 10*3/uL [facility] Basophils/100 WBC (Bld) 0.6 % [facility] Eosinophils (Bld) [#/Vol] 0.17 10*3/uL [facility] Eosinophils/100 WBC (Bld) 1.6 % [facility] Erythrocyte distribution width (RBC) [Entitic vol] 15.2 % High 11.6 - 14.8 % [facility] Hematocrit (Bld) [Volume fraction] 45.8 % 41 - 53 % [facility] Hemoglobin (Bld) [Mass/Vol] 15.3 g/dL 13.5 - 17.5 g/dL [facility] Immature granulocytes (Bld) [#/Vol] 0.07 10*3/uL [facility] Immature granulocytes/100 WBC (Bld) 0.70 % [facility] Comment on above: The IG parameter is the percentage of metamyelocytes, myelocytes and promyelocytes. An immature granulocyte count (IG) of 1% or more suggests the possibility of infection, an IG count of 3% is very likely related to an infection. Interpretation and review of laboratory results Abnormal [facility] Lymphocytes (Bld) [#/Vol] 1.91 10*3/uL [facility] Lymphocytes/100 WBC (Bld) 18.2 % [facility] MCH (RBC) [Entitic mass] 27.8 pg 26 - 34 pg [facility] MCHC (RBC) [Mass/Vol] 33.4 g/dL 31 - 37 g/dL [facility] MCV (RBC) [Entitic vol] 83.1 fL 80 - 100 fL [facility] Monocytes (Bld) [#/Vol] 0.65 10*3/uL [facility] Monocytes/100 WBC (Bld) 6.2 % [facility] Neutrophils (Bld) [#/Vol] 7.65 10*3/uL High [facility] Neutrophils/100 WBC (Bld) 72.7 % [facility] Platelet mean volume (Bld) [Entitic vol] 10.0 fL 9.4 - 12.4 fL [facility] Platelets (Bld) [#/Vol] 166 10*3/uL [facility] RBC (Bld) [#/Vol] 5.51 10*6/uL [facility] WBC (Bld) [#/Vol] 10.51 10*3/uL [facility] POC Covid-19, Molecularon Interpretation and review of laboratory results Normal [facility] SARS-CoV-2 Not Detected Not Detected [facility] Comment on above: This test was perfor med under the FDA's Emergency Use Authorization (EUA). Testing was performed using the [employer] ID NOW COVID-19 assay on the ID NOW platform. This test has not been approved for use in asymptomatic patients and its performance in this patient population has not been evaluated. Negative results do not rule out the presence of SARS-CoV-2/COVID-19. Fact sheets for the EUA can be found at the following links: For Healthcare Providers: https://www.fda.gov/media/773130/download For Patients: https://www.fda.gov/media/528203/download POC Troponin Ion 10-09-2019 Interpretation and review of laboratory results Normal [facility] Troponin I.cardiac [Mass/Vol] ng/mL <0.05 ng/mL [facility] POC Venous Blood Gases with Full Panelon 10-09-2019 Base excess Calc (BldV) [Moles/Vol] 0.9 mmol/L [facility] Calcium.ionized [Mass/Vol] 4.1 mg/dL Low 4.5 - 5.3 mg/dL [facility] Chloride [Moles/Vol] 101 mmol/L 98 - 108 mmol/L [facility] CO2 (BldV) [Partial pressure] 46.0 mm[Hg] [facility] Creatinine [Mass/Vol] 0.84 mg/dL 0.50 - 1.30 [facility] GFR/1.73 sq M predicted among non-blacks MDRD (S/P/Bld) [Vol rate/Area] The eGFR should be used for monitoring renal function only and not for medication dosing. Specimens collected in a lithium heparin tube may show erroneous pO2, pCO2 and related calculations due to aerobic handling. If the most accurate venous blood gas results are needed, use a heparinized blood gas syringe. [facility] GFR/1.73 sq M.predicted MDRD (S/P/Bld) [Vol rate/Area] 103 mL/min/{1.73_m2} >=60 mL/min/1.73 m2 [facility] Glucose [Mass/Vol] 202 mg/dL High 65 - 99 mg/dL [facility] HCO3 (Bld) [Moles/Vol] 26.7 mmol/L 24 - 28 mmol/L [facility] Hematocrit (Bld) [Volume fraction] 46 % 41 - 53 % [facility] Hemoglobin (Bld) [Mass/Vol] 15.5 g/dL 13.5 - 17.5 g/dL [facility] Interpretation and review of laboratory results Abnormal [facility] Lactate [Moles/Vol] 1.6 mmol/L 0.6 - 2 mmol/L [facility] Oxygen (BldV) [Partial pressure] 39 mm[Hg] [facility] Oxygen saturation in Venous blood 71.7 % High 40 - 70 % [facility] pH (BldV) 7.37 [pH] [facility] Potassium [Moles/Vol] 4.1 mmol/L 3.5 - 5.1 mmol/L [facility] Sodium [Moles/Vol] 137 mmol/L 135 - 145 mmol/L [facility] Urea nitrogen [Mass/Vol] 8 mg/dL 8 - 25 mg/dL [facility] Complete PFTon 04-01-2017 DL Adj Pre 19.5 mL/mmHg/min Invalid Interpretation Code 1 - 2 [facility] DLCO %Pre Predicted 51 % Invalid Interpretation Code 0 - 300 % [facility] Pre 19.5 mL/mmHg/min Invalid Interpretation Code [facility] Predicted 38 mL/mmHg/min Invalid Interpretation Code 0.05 - 99.99 [facility] DLCO/VA %Pre Predicted 109 % Invalid Interpretation Code [facility]/VA Pre 4.57 mL/mHg/min/L Invalid Interpretation Code [facility] DLCO/VA Predicted 4.18 mL/mHg/min/L Invalid Interpretation Code [facility] ERV Pre 0.39 Liters Invalid Interpretation Code 0.05 - 9.99 [facility] FEV1 %Change 1 % Invalid Interpretation Code 0 - 300 % [facility] FEV1 %Post Predicted 51 % Invalid Interpretation Code 0 - 300 % [facility] FEV1 %Pre Predicted 51 % Invalid Interpretation Code 0 - 300 % [facility] FEV1 Post 2.12 Liters Invalid Interpretation Code 0 - 12 [facility] FEV1 Pre 2.1 Liters Invalid Interpretation Code 0 - 12 [facility] FEV1 Predicted 4.13 Liters Invalid Interpretation Code 0.05 - 9.99 [facility] FEV1/FVC %Change -1 % Invalid Interpretation Code [facility] FEV1/FVC %Post Predicted 90 % Invalid Interpretation Code [facility] FEV1/FVC %Pre Predicted 91 % Invalid Interpretation Code [facility] FEV1/FVC Post 70 % Invalid Interpretation Code 0 - 12 [facility] FEV1/FVC Pre 71 % Invalid Interpretation Code 0 - 12 [facility] FEV1/FVC Predicted 78 % Invalid Interpretation Code 1 - 99 % [facility] FRC N2 %Pre Predicted 94 % Invalid Interpretation Code 0 - 300 % [facility] FRC N2 Pre 2.46 Liters Invalid Interpretation Code 0.05 - 9.99 [facility] FRC N2 Predicted 2.61 Liters Invalid Interpretation Code 0.05 - 9.[address] [facility] [address] Predicted 2.61 Liters Invalid Interpretation Code 0.05 - 9.99 [facility] FVC %Change 2 % Invalid Interpretation Code 0 - 300 % [facility] FVC %Post Predicted 57 % Invalid Interpretation Code 0 - 300 % [facility] FVC %Pre Predicted 56 % Invalid Interpretation Code 0 - 300 % [facility] FVC Post 3.02 Liters Invalid Interpretation Code 0 - 12 [facility] FVC Pre 2.96 Liters Invalid Interpretation Code 0 - 12 [facility] FVC Predicted 5.28 Liters Invalid Interpretation Code 0.05 - 9.99 [facility] MVV %Pre Predicted 53 % Invalid Interpretation Code 0 - 300 % [facility] MVV Pre 88 L/min Invalid Interpretation Code 0 - 300 L/min [facility] MVV Predicted 165 L/min Invalid Interpretation Code 0 - 300 L/min [facility] PE max Predicted 220 cmH2O Invalid Interpretation Code [facility] PI max Predicted 117 cmH2O Invalid Interpretation Code [facility] RV %Pre Predicted 90 % Invalid Interpretation Code 0 - 300 % [facility] RV Pre 2 Liters Invalid Interpretation Code 0.05 - 9.99 [facility] RV Predicted 2.22 Liters Invalid Interpretation Code 0.05 - 9.99 [facility] TLC %Pre Predicted 70 % Invalid Interpretation Code 0 - 300 % [facility] TLC Pre 4.96 Liters Invalid Interpretation Code 0.05 - 11.99 [facility] TLC Predicted 7.09 Liters Invalid Interpretation Code 0.05 - 11.99 [facility] VC %Pre Predicted 56 % Invalid Interpretation Code 0 - 300 % [facility] VC Pre 2.96 Liters Invalid Interpretation Code 0.05 - 9.99 [facility] VC Predicted 5.28 Liters Invalid Interpretation Code 0.05 - 9.99 [facility] Vol Extrap/FVC % Change 3 % Invalid Interpretation Code 0 - 300 % [facility] Vol Extrap/FVC Post 5 % Invalid Interpretation Code 0 - 12 [facility] Vol Extrap/FVC Pre 5 % Invalid Interpretation Code 0 - 12 [facility] Complete PFT PFT Interpretation Indications: Dyspnea Spirometry: Spirometry demonstrates a moderate obstruction. There is no significant improvement after bronchodilator use. Lung Volumes: Lung volumes show a moderate restriction. DLCO: The diffusing capacity for carbon monoxide (DLCO) demonstrates a moderate decrease. The DLCO corrects when alveolar volume is considered. Invalid Interpretation Code [facility] Vital Signs Date Time Vital Sign Value Performing Clinician Facility 08-03-2021 10:25-0400 Blood Pressure Location [facility] 08-03-2021 10:25-0400 Diastolic blood pressure 67 mm[Hg] [facility] 08-03-2021 10:25-0400 Heart rate 87 /min [facility] 08-03-2021 10:25-0400 SaO2% (BldA) [Mass fraction] 95 % [facility] 08-03-2021 10:25-0400 Systolic blood pressure 106 mm[Hg] [facility] 10-10-2019 00:30-0400 Pulse Oximetry 97 % Myah Valle [facility] 10-10-2019 00:15-0400 Pulse (Heart Rate) 92 /min [facility] Valle [facility] 10-10-2019 00:15-0400 Respiratory Rate 20 /min Myah Valle [facility] 10-09-2019 23:32-0400 BP Diastolic 71 mm[Hg] Myah Valle [facility] 10-09-2019 23:32-0400 BP Systolic 133 mm[Hg] Myah Valle [facility] 10-09-2019 22:37-0400 BMI (Body Mass Index) 52.23 kg/m2 [facility]ah Valle [facility] 10-09-2019 22:37-0400 Body Temperature 98.2 [degF] [facility]ah Valle [facility] 10-09-2019 22:37-0400 Body weight 167.83 kg Myah Valle [facility] 10-09-2019 22:37-0400 Height 177.8 cm [facility]ah Valle [facility] 12-10-2018 10:19-0400 BP Diastolic 78 mm[Hg[facility] 12-10-2018 10:19-0400 BP Systolic 132 mm[Hg] [facility] 12-10-2018 10:19-0400 Pulse (Heart Rate) 78 /[facility] 12-10-2018 10:19-0400 Pulse Oximetry 93 % [facility] Comment on above: ra 12-10-2018 10:19-0400 Respiratory Rate 20 /min [facility] 06-15-2018 11:07-0400 BMI (Body Mass Index) 54.39 kg/m2 [facility] 06-15-2018 11:07-0400 Body Temperature 97.81 [degF] [facility] 06-15-2018 11:07-0400 Body weight 176.9 kg [facility] 06-15-2018 11:07-0400 BP Diastolic 77 mm[Hg] [facility] 06-15-2018 11:07-0400 BP Systolic 152 mm[Hg] [facility] 06-15-2018 11:07-0400 Height 180.3 cm [facility] 06-15-2018 11:07-0400 Pulse (Heart Rate) 76 /min [facility] 06-15-2018 11:07-0400 Pulse Oximetry 96 % [facility] 06-15-2018 11:07-0400 Respiratory Rate 16 /min [facility] 06-15-2018 10:19-0400 BMI (Body Mass Index) 55.51 kg/m2 [facility] 06-15-2018 10:19-0400 BP Diastolic 78 mm[Hg] [facility] 06-15-2018 10:19-0400 BP Systolic 136 mm[Hg] [facility] 06-15-2018 10:19-0400 Height 180.3 cm [facility] 06-15-2018 10:19-0400 Pulse (Heart Rate) 74 /min [facility] 06-15-2018 10:19-0400 Weight 180.53 kg [facility] 06-04-2018 09:11-0400 BP Diastolic 72 mm[Hg] [facility] 06-04-2018 09:11-0400 BP Systolic 111 mm[Hg] [facility] 06-04-2018 09:11-0400 Height 180.3 cm [facility] 06-04-2018 09:11-0400 Pulse (Heart Rate) 75 /min [facility] 06-04-2018 09:11-0400 Pulse Oximetry 95 % [facility] 06-04-2018 09:11-0400 Respiratory Rate 12 /min Angelomichael Rios [facility] 04-01-2017 09:22-0500 BMI (Body Mass Index) 53 kg/m2 Angelo Rios [facility] Work Phone: 04-01-2017 09:22-0500 BP Diastolic 85 mm[Hg] Angelo Rios [facility] Work Phone: 04-01-2017 09:22-0500 BP Systolic 138 mm[Hg] Angelo Rios [facility] Work Phone: 04-01-2017 09:22-0500 Height 180.3 cm Angelo Rios [facility] Work Phone: 04-01-2017 09:22-0500 Pulse (Heart Rate) 75 /min Angelo Rios [facility] Work Phone: 04-01-2017 09:22-0500 Pulse Oximetry 94 % Angelo Rios [facility] Work Phone: 04-01-2017 09:22-0500 Weight 172.37 [facility] 11-25-2016 10:31-0400 BMI (Body Mass Index) 51.6 kg/m2 Angelo Rios [facility] Work Phone: 11-25-2016 10:31-0400 BP Diastolic 68 mm[Hg] Angelo Rios [facility] Work Phone: 11-25-2016 10:31-0400 BP Systolic 126 mm[Hg] Angelo Rios [facility] Work Phone: 11-25-2016 10:31-0400 Height 180.3 cm Angelo Rios [facility] Work Phone: 11-25-2016 10:31-0400 Pulse (Heart Rate) 87 /min Angelo Rios [facility] Work Phone: 11-25-2016 10:31-0400 Pulse Oximetry 95 % Angelo Rios [facility] Work Phone: 11-25-2016 10:31-0400 Respiratory Rate 16 /min [facility]: 11-25-2016 10:31-0400 Weight 167.83 [facility]: Encounters Encounter Date Encounter Type Care Provider Facility Start: 12-23-2022 End: 12-24-2022 ambulatory Casey Morse [facility] Start: 12-23-2022 End: 12-23-2022 Patient encounter procedure Casey Morse III [facility] Start: 08-16-2022 End: 08-17-2022 ambulatory Franchesca Don Facility:[facility] Start: 08-16-2022 End: 08-16-2022 Patient encounter procedure Franchesca Don [facility] Start: 05-22-2022 End: 05-23-2022 ambulatory Jj C Link Facility:[facility] Start: 05-22-2022 End: 05-22-2022 Patient encounter procedure Jj C Link [facility] Start: 05-06-2022 End: 05-07-2022 ambulatory Jj C Link Facility:[facility] Start: 11-15-2021 End: 03-14-2022 Pre-admission assessment Basetanika Eid [facility] Start: 10-03-2021 End: 10-03-2021 Patient encounter procedure Hansa Eid [facility] Start: 08-03-2021 End: 08-03-2021 Patient encounter procedure Basetanika Eid [facility] Start: 07-03-2021 End: 07-28-2021 Pre-admission assessment Hansa Eid [facility] Start: 11-20-2020 Refill Angelo gonzalez MD Work Phone: [facility] Comment on above: Chronic obstructive pulmonary disease with acute exacerbation (HCC) Start: 08-18-2020 End: 08-18-2020 Luis Orozco LPN [facility] Comment on above: Chronic obstructive pulmonary disease with acute exacerbation (HCC) (Primary Dx) Start: 06-16-2020 End: 06-16-[address] [facility] Start: 06-16-2020 End: 06-16-2020 Phys/qhp telephone evaluation 11-20 min Angelo Rios MD Work Phone: [facility] Comment on above: Centrilobular emphys karoline (HCC) (Primary Dx); Obstructive sleep apnea; Tobacco abuse disorder Start: 06-08-2020 ambulatory BERNADINE VERMA Facility:[facility] Start: 05-30-2020 [facility] Start: 05-18-2020 ambulatory SELF SELF Facility:[facility] Start: 05-18-2020 Patient encounter procedure SELF SELF Facility:[facility] Start: 05-10-2020 End: 05-10-2020 Orders Only Yandy Bailon Luana Work Phone: [facility] Start: 03-12-2020 End: 03-12-2020 Refill Angelo Rios Work Phone: [facility] Start: 02-16-2020 End: 02-16-2020 ambulatory [facility] Start: 01-19-2020 ambulatory [facility] Start: 12-28-2019 End: 12-28-2019 Documentation procedure Kim Rust [facility] Comment on above: nebulizer Start: 12-01-2019 End: 12-01-2019 Documentation procedure Kim Rust LPN [facility] Comment on above: louisedorza denied Start: 11-30-2019 ambulatory BERNADINE VERMA [facility] Start: 10-21-2019 End: 10-21-2019 ambulatory [facility] Start: 10-10-2019 End: 10-10-2019 Patient encounter procedure MYAH VALLE [facility] Start: 10-10-2019 End: 10-10-2019 [facility]: 10-09-2019 End: 10-10-2019 Emergency department patient visit Myah Valle Work Phone: [facility] Emergency Department Comment on above: COPD exacerbation (H CC) (Primary Dx); Chest pain, unspecified type Start: 03-11-2019 End: 03-11-2019 Documentation procedure Kim Rust [facility] Comment on above: bipap status Start: 02-26-2019 End: 02-26-2019 Documentation procedure Nga Serrano [facility] Start: 12-10-2018 End: 12-10-2018 Documentation procedure Kim Rust [facility] Comment on above: titration study orde red Start: 12-10-2018 End: 12-10-2018 Office outpatient visit 25 minutes Angelo Rios Work Phone: [facility] Comment on above: Centrilobular emphys karoline (HCC) (Primary Dx); Obstructive sleep apnea; Cigarette Smoker Start: 07-03-2018 End: 07-03-2018 Documentation procedure Adamaris Hines [facility] Comment on above: CPAP supplies Start: 06-15-2018 End: 06-15-2018 Emergency department patient visit [facility]INE [facility] Start: 06-15-2018 End: 06-15-2018 Emergency department patient visit Debbie Erwin Work Phone: [facility] Comment on above: Pain, dental (Primar y Dx) Start: 06-15-2018 End: 06-15-2018 Patient encounter procedure Franky Myersian Viviansuraj Work Phone: [facility] Comment on above: ERRONEOUS ENCOUNTER- -DISREGARD (Primary Dx) Start: 06-04-2018 End: 06-04-2018 Office outpatient visit 25 minutes Angelo Rios Work Phone: [facility] Comment on above: Centrilobular emphys karoline (HCC) (Primary Dx); Obstructive sleep apnea; Tobacco abuse disorder Start: 04-01-2017 Office/outpatient vi sit, est, level 4 Angelo Rios Work Phone: [facility] Start: 04-01-2017 End: 04-01-2017 Ambulatory Angelo Rios Work Phone: [facility] Start: 11-25-2016 Office/outpatient vi sit, est, level 5 Angelo Rios Work Phone: [facility] Start: 09-11-2016 Ambulatory [facility] Procedures Date Procedure Procedure Detail Performing Clinician Start: 10-10-2019 Assay of troponin quantitative Myah Valle Work Phone: Start: 10-09-2019 POC COVID-19, MOLECULAR Myah Valle Work Phone: Start: 10-09-2019 12 lead ECG Myah Valle Work Phone: Start: 10-09-2019 Assay of troponin quantitative Myah Valle Work Phone: Start: 10-09-2019 Radiologic exam ches t single view Myah Shannonk Work Phone: Start: 10-09-2019 Assay of urea nitrog en quantitative Myah Gutiérrezatrick Work Phone: Start: 10-09-2019 Blood count complete auto&auto difrntl wbc Myah Valle Work Phone: Start: 09-24-2019 Microalbumin [Mass/v olume] in Urine by Test strip Kim Rust Start: 08-26-2017 Ophthalmic examinati on and evaluation Angelo Rios MD Work Phone: Start: 04-01-2017 End: 04-01-2017 COMPLETE PFT Angelo Rios Work Phone: Plan of Treatment Date Care Activity Detail Author Start: 10-25-2020 Influenza vaccination Sequential Influenza Vaccine (#1) [facility] Start: 09-23-2020 Albumin DL <= 20 mg/L (U) [Mass/Vol] Urine Microalbumin [facility] Start: 09-23-2020 Microalbumin measurement, urine, quantitative Urine Microalbumin [facility] Start: 09-18-2020 End: 09-18-2020 Patient encounter procedure 09/18/2020 Office Visit Pulmonology Al Solomon, SOD STRIPPER [address] [facility] [address] [place] [address] [phone] [facility] Start: 06-16-2020 End: 06-16-2020 Office Visit 06/16/2020 Office Visit Pulmonology Angelo Rios MD [address] [place] [address] [phone] [facility] Start: 04-11-2020 HbA1c (Bld) [Mass fraction] A1C [facility] Start: 04-11-2020 Hemoglobin A1c measurement A1C [facility] Start: 02-16-2020 End: 02-16-2020 Telemedicine 02/16/2020 Telemedicine Pulmonology Al Solomon, SOD STRIPPER [address] [place] [address] [facility] Start: 10-26-2019 Influenza vaccination Sequential Influenza Vaccine (#1) [facility] Start: 10-26-2019 Influenza vaccination given Sequential Influenza Vaccine (#1) [facility] Start: 10-21-2019 End: 10-21-2019 Office Visit 10/21/2019 Office Visit Pulmonology Al Solomon, SOD STRIPPER [address] [place] [address] [phone] [facility] Start: 10-12-2019 Administration of herpes zoster vaccine Zoster Vaccines (1 of 2) [facility] Start: 10-12-2019 Screening for malignant neoplasm of colon [facility] Start: 06-17-2019 End: 06-17-2019 Office Visit 06/17/2019 Office Visit Pulmonology Angelo Rios MD [address] [place] [address] [phone] [facility] Start: 12-10-2018 End: 12-10-2018 Office Visit 12/10/2018 Office Visit Pulmonology Angelo Rios MD [address] [place] [address] [phone] [facility] Start: 10-25-2018 Influenza vaccination given [facility] Start: 08-26-2018 Ophthalmic examination and evaluation Ophthalmology Exam [facility] Start: 06-30-2018 End: 06-30-2018 Treatment 06/30/2018 Treatment Cardiac Rehabilitation Felisha Cisneros MD [address] [place] [address] [phone] [facility] Start: 06-15-2018 End: 06-15-2018 Office Visit 06/15/2018 Office Visit Cardiology Franky Steward MD [address] [facility] [address] [place] [address] [phone] [facility] Start: 10-25-2017 Influenza vaccination given SEQUENTIAL INFLUENZA VACCINE (#1) [facility] Start: 08-06-2017 Ambulatory 08/06/2017 Office Visit Pulmonology Angelo Rios MD [address] [facility] [address] [place] [address] [phone] [facility] Start: 04-01-2017 Ambulatory 04/01/2017 Office Visit Pulmonology Angelo Rios MD [address] [place] [address] [phone] [facility] Start: 10-25-2016 Influenza vaccination SEQUENTIAL INFLUENZA VACCINE (#1) [facility] Work Phone: Start: 11-17-2014 Low dose computed tomography of chest without contrast Low-dose CT Lung Cancer Screen [facility] Start: 11-17-2014 Screening for malignant neoplasm of lung Low-dose CT Lung Cancer Screen [facility] Start: 10-12-1987 Hepatitis C antibody, confirmatory test Hepatitis C Screening [facility] Start: 10-12-1987 Hepatitis C screening Hepatitis C Screening [facility] Start: 1985 COVID-19 Vaccine (1 of 2) COVID-19 Vaccine (1 of 2) [facility] Start: 1984 HIV screening HIV Screening [facility] Start: 1981 Adolescent depression screening assessment Depression Screening (PHQ9) [facility] Start: 1981 Depression screening using PHQ-9 (Patient Health Questionnaire 9) score Depression Screening (PHQ9) [facility] Start: 10-12-1979 Diabetic foot examination Foot Exam [facility] Start: 10-12-1979 Microalbumin measurement, urine, quantitative Urine Microalbumin [facility] Start: 10-12-1979 Ophthalmic examination and evaluation Ophthalmology Exam [facility] Start: 10-12-1975 Pneumococcal Vaccine: Ped or At-Risk (1 of 2 - PPSV23) Pneumococcal Vaccine: Ped or At-Risk (1 of 2 - PPSV23) [facility] Start: 1972 History and physical examination, annual for health maintenance Wellness Visit [facility] Start: 1969 Prostate specific antigen measurement PSA Level [facility] Start: 1969 Tetanus vaccination [facility] End: 11-25-2017 Complete PFT Complete PFT Routine Centrilobular emphysema (HCC) 1 Occurrences starting 11/25/2016 until 11/25/2017 [facility] Work Phone: XR Chest 1 View XR Chest 1 View Imaging KEITH 10/09/2019 11:00 PM EDT [facility] Payers Date Payer Category Payer Medicaid [id number] 2018 Medicare MEDICARE MEDICAR E PART A & B xxxxxxxxxxx 2018-Present [place] xxxxxxxxxxx [id number] 2018 Medicare [id number] 2018 Medicare [id number] 2013 Medicaid [id number] 2013 Medicaid [id number] 1969 Unknown [id number] [id number] 1969 Unknown [id number] [id number] 1969 Unknown [id number] [id number] 1969 Unknown [id number] [id number] 1969 Unknown [id number] [id number] 1969 Unknown [id number] [id number] 1969 Unknown [id number] [id number] 1969 Unknown [id number] [id number] 1969 Unknown [id number] [id number] 1969 Unknown [id number] [id number] 1969 Unknown [id number] [id number] 1969 Unknown [id number] [id number] 1969 Unknown [id number] [id number] 1969 Unknown [id number] [id number] 1969 Unknown [id number] [id number] Social History Date Type Detail Facility Start: 11-25-2016 End: 10-10-2019 Tobacco smoking status ALIS Current every day smoker [facility] Start: 1970 Sex Assigned At Not on file [facility] [employer] Work Phone: Start: 06-15-2018 End: 10-10-2019 Cigarettes smoked current (pack per day) - Reported [facility] Start: 12-10-2018 End: 10-10-2019 Alcohol intake Current non-drinker of alcohol (finding) [facility] Start: 10-10-2019 End: 06-16-2020 Tobacco use and exposure Never used [facility] Exposure to SARS-CoV -2 (event) Yes [facility] Exposure to SARS-CoV -2 (event) Unable to assess [facility] Sex Assigned At Male [facility] Start: 08-03-2021 Tobacco smoking status Heavy t obacco smoker (finding) [facility] Tobacco smoking status Never [facility] Medical Equipment Procedure Code Equipment Code Equipment Origin al Text Equipment Identifier Dates USE 1 NEEDLE ONC E DAILY [id number] Start: 01-17-2020 daily as directed . [id number] Start : 12-27-2019 Clinical Notes 12-01-2019 to 07-27-2021 Telephone Encounter - Marianela Orozco LPN - 08/18/2020 12:12 PM EDTTelephone Encounter - Marianela Orozco LPN - 08/18/2020 11:04 AM EDTDeAngelo smith MD - 06/16/2020 10:12 AM EDT Note Date & Type Note Facility 07-27-2021 Hospital Discharg e instructions Follow Up Care 07/27/2021 11:50:22 With:Ragini SALINAS, Hansa Harvey, PUL, SHAJI Address: [address] [place] [address] Pul[facility] Clinic (Heart & Vascular) [place] [address]- When: Unknown Comments:after his testing is completed [facility] 08-18-2020 Miscellaneous Notes Patient returned call having issues with COPD flair-up for about a week. Denies n/v/d or chest pain. Heavy breathing, shortness of breath is an issue. States he has been using his nebulizer without resolve. Patient would like prednisone before he gets any worse. Advised patient I would forward information to physician and we would get back to him. He verbalized appreciation and understanding. Let M for patient to return call regarding fax received from [facility] for a refill on his Prednisone taper. documented in this encounter [facility] 06-16-2020 History of Presen t illness Narrative Telephone Visit Via Phone Call Patient ID: Ector Guerin is a 49 y.o. male on the phone for COPD Patient phone : [phone] This visit has been fully reviewed with the patient and verbal consent has been obtained. Dear Dr. Bernadine Verma MD, I had the pleasure of seeing our mutual patient, Ector Guerin, who returns to see me in my clinic at [facility]. IMPRESSION/RECOMMENDATIONS 1. Mr. Guerin is a pleasant 49 y.o. male with moderate COPD, Gold stage II, with category B, with centrilobular emphysema on the CT scan of chest. At this time, I would continue Dulera and Atrovent, and continue encouraging him to work on smoking cessation. He has not enrolled in pulmonary rehabilitation as advised. I have discussed with him about cutting down on the salt intake and fluid intake. I asked him to restart taking Lasix every other day and follow-up with us closely. 2. He does have severe obstructive sleep apnea for which he is on BiPAP and is doing well. He is doing much better on his current settings and his recent compliance data was reviewed. He has 100% compliance and has residual AHI of 1.2. His Houston Sleepiness Scale is 6/24 and overall he is doing much better. On average, he uses this device for 9 + hours. 3. He does have mild pulmonary hypertension due to his obstructive sleep apnea and possibly obesity-related hypoventilation. Continues BiPAP and Lasix at this time. 4. Tobacco dependence. I did discuss with him the importance of cessation of smoking. He will continue working on cessation. 5. Obesity related restrictive lung disease for which I did discuss with him about weight reduction strategies. I will get him back into the office in few months to check on him closely. Please do not hesitate to contact me if you have any questions or concerns. Thanks so much for allowing me to participate in the care of this nice patient. Sincerely, Angelo Rios MD History of presenting illness As you know, Mr. Guerin is a pleasant 49 y.o. male with COPD and obstructive sleep apnea. Since his last visit, he continues to use BiPAP and has been doing fairly well. He is currently on Dulera and Atrovent. Uses albuterol nebulizer 1-2 times a day. He continues to have dyspnea on mild to moderate exertional activity and has stable weight since last visit. He has to stop at less than 100 yards for a few minutes with walking because of dyspnea. He exercises only occasionally and has not enrolled in pulmonary rehabilitation. He uses a full-face mask for interface. Houston Sleepiness Scale is 9/24. He continues to smoke about a pack to a pack of cigarettes a day. He continues to have a cough with whitish sputum production. Denies any fevers, chills, night sweats, or hemoptysis. He is stopped taking his Lasix as prescribed. He does complain of stable lower extremity edema. He apparently gained about 10 to 15 pounds since last 6 months. Downloaded compliance data reviewed which shows excellent compliance. He has a past medical history of COPD (chronic obstructive pulmonary disease) (HCC), Diabetes mellitus (HCC), GERD (gastroesophageal reflux disease), and Hyperlipidemia. He has No Known Allergies. Current Outpatient Medications: acetaminophen (TYLENOL EXTRA STRENGTH) 500 MG tablet, Take by mouth., Disp: , Rfl: albuterol 90 mcg/actuation inhaler, Inhale 2 (two) puffs every 6 (six) hours as needed for wheezing ., Disp: 1 Inhaler, Rfl: 11 Alcohol Prep Pads PadM, USE 1 PAD DAILY, Disp: , Rfl: ammonium lactate (LAC-HYDRIN) 12 % lotion, , Disp: , Rfl: atorvastatin (LIPITOR) 20 MG tablet, , Disp: , Rfl: Atrovent HFA 17 mcg/actuation inhaler, INHALE 2 (TWO) PUFFS 2 (TWO) TIMES A DAY ., Disp: 12.9 Inhaler, Rfl: 3 BD Ultra-Fine Mini Pen Needle 31 gauge x 3/16 Ndle, USE 1 NEEDLE ONCE DAILY, Disp: , Rfl: glipiZIDE (GLUCOTROL) 5 MG tablet, Take 5 mg by mouth 2 (two) times a day before meals ., Disp: , Rfl: ipratropium (ATROVENT) 0.03 % nasal spray, Instill 2 (two) sprays into each nostril 3 (three) times a day ., Disp: 30 mL, Rfl: 11 ipratropium-albuteroL (DUO-NEB) 0.5-2.5 mg/3 ml nebulizer, Take 3 mL by nebulization every 6 (six) hours as needed for wheezing Dx: J44.9 ., Disp: 270 mL, Rfl: 11 lancets 26 gauge Misc, daily as directed ., Disp: , Rfl: lisinopriL (PRINIVIL,ZESTRIL) 2.5 MG tablet, Take 2.5 mg by mouth daily ., Disp: , Rfl: metFORMIN (GLUCOPHAGE) 1000 MG tablet, Take 1,000 mg by mouth 2 (two) times a day with meals ., Disp: , Rfl: mometasone-formoterol (Dulera) 200-5 mcg/actuation HFAA, Inhale 2 (two) puffs (400 mcg total) 2 (two) times a day Rinse and spit after use ., Disp: 1 Inhaler, Rfl: 11 montelukast (SINGULAIR) 10 mg tablet, Take 1 (one) tablet (10 mg total) by mouth nightly ., Disp: 30 tablet, Rfl: 11 omeprazole (PRILOSEC) 40 MG capsule, Take 40 mg by mouth daily ., Disp: , Rfl: potassium chloride SA (K-DUR,KLOR-CON) 20 MEQ tablet, Take 20 mEq by mouth daily ., Disp: , Rfl: VICTOZA 2-ACOSTA 0.6 mg/0.1 mL (18 mg/3 mL) Pen, Inject 1.2 mg under the skin daily ., Disp: , Rfl: aclidinium bromide (Tudorza Pressair) 400 mcg/actuation AePB, Inhale 1 (one) puff (400 mcg total) every 12 (twelve) hours . (Patient not taking: Reported on 06/16/2020 .), Disp: 1 each, Rfl: 11 furosemide (LASIX) 40 MG tablet, TAKE 1 (ONE) TABLET DAILY NEEDED FOR SWELLING, Disp: , Rfl: predniSONE (DELTASONE) 20 MG tablet, Take 2 tabs x 4 days then 1 tab x 4 days . (Patient not taking: Reported on 06/16/2020 .), Disp: 12 tablet, Rfl: 0 He reports that he has been smoking. He has been smoking about 1.00 pack per day. He has never used smokeless tobacco. reports no history of alcohol use. reports no history of drug use. Family History Problem Relation Age of Onset Cancer Mother Hypertension Mother Family Hx: Negative for any Lung problems. All systems reviewed and are negative except as mentioned above. PFT Results PFT Pre-bronchodilator 04/01/17 09 FVC 2.96 (% predicted) 56 FEV1 2.10 (% predicted) 51 FEV1/FVC 71 VC 2.96 (% predicted) 56 PFT Post-bronchodilator 04/01/17 0916 FVC 3.02 (% predicted) 57 (% change) 2 FEV1 2.12 (% predicted) 51 (% change) 1 FEV1/FVC 70 PFT Lung Volumes 04/01/17 09 TLC 4.96 (% predicted) 70 RV 2.00 (% predicted) 90 PFT Diffusion 04/01/17 0916 DLCO 19.5 (% predicted) 51 DLCO/VA 4.57 (% predicted) 109 ECHO in 2018: RV function mildly reduced, has normal EF This note was dictated using [email or web address]/ Dictation Software and may contain errors that were not corrected during editing. Provider location: [facility] [id number] Patient location: [address] [place] [address] I have spent 11-20 minutes with the patient discussing current HPI. There are other unrelated non-urgent complaints, but due to the busy schedule and the amount of time I've already spent with him, time does not permit me to address these routine issues at today's visit. I've requested another appointment to review these additional issues. Please do not hesitate to contact me if you have any questions or concerns. Thanks so much for allowing me to participate in the care of this nice patient. Sincerely, Angelo Rios MD documented in this encounter [facility] 12-01-2019 History of Presen t illness Narrative Insurance denied the tudorza until patient tries atrovent. Informed patient Dr. Rios placed an order for the atrovent today. Asked patient to try it and let us know how it is working for him. He verbalizes understanding documented in this encounter [facility] Evaluation + Plan note Future Appointments Appointment Date:08/03/2021 10:15:00 AM Scheduled Provider:Hansa Eid MD Location:FT.Pulmonary Clinic Appointment Type:Pulmonary New Patient (FT) [facility] Evaluation + Plan note Future Appointments Appointment Date:08/20/2021 07:30:00 AM Scheduled Provider: Location:FT.CARDIO Appointment Type:PUL Pulmonary Function Test (FT) Appointment Date:08/20/2021 08:30:00 AM Scheduled Provider: Location:.CARDIO Appointment Type:PUL Six Minute Walk Test (FT) [facility] Evaluation note Diagnosis Centrilobular emphysema (HCC)- Primary Obstructive sleep apnea Obstructive sleep apnea (adult) (pediatric) Tobacco abuse disorder [facility] Diagnosis Chronic obstructive pulmonary disease with acute exacerbation (HCC)- Primary [facility] Diagnosis Chronic obstructive pulmonary disease with acute exacerbation (HCC) [facility] Narrative No data available for this section [facility] No data available for this section [facility] No data available for this section [facility] Assessments Diagnosis Centrilobular emphysema (HCC ) - Primary Obstructive sleep apnea Obstructive sleep apnea (adult) (pediatric) Tobacco abuse disorder Bilateral edema of lower ext remity Diagnosis Centrilobular emphysema (HCC ) Diagnosis Centrilobular emphysema (HCC ) - Primary Obstructive sleep apnea Obstructive sleep apnea (adult) (pediatric) Cigarette smoker Tobacco use disorder Diagnosis ERRONEOUS ENCOUNTER--DISREGARD- Primary Diagnosis Centrilobular emphysema (HCC)- Primary Obstructive sleep apnea Obstructive sleep apnea (adult) (pediatric) Cigarette Smoker Tobacco use disorder Diagnosis COPD exacerbation (HCC)- Primary Obstructive chronic bronchitis with exacerbation Chest pain, unspecified type Diagnosis Pain, dental- Primary Diagnosis Centrilobular emphysema (HCC)- Primary Obstructive sleep apnea Obstructive sleep apnea (adult) (pediatric) Tobacco abuse disorder Summary Purpose Family History No Family History Records FoundNo Family History Records FoundNo Family History Records FoundNo Family History Records FoundNo Family History Records FoundNo Family History Records Found No data available for this section No Family History Records Found Advance Directives No Advanced Directives Records FoundDocuments on File Type Date Recorded Patient 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 Advance Directives and Livin g Will 06/15/2018 11:51 AM Advance Directives and Livin g Will 06/15/2018 8:23 AM Documents on File Type Date Recorded Patient 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 Advance Directives and Livin g Will 06/15/2018 11:51 AM Advance Directives and Livin g Will 10/10/2019 4:01 AM Latest Code Status on File Code Status Date Activated Date Inactivated Comments Full Code 10/10/2019 4:19 AM Latest Code Status on File Code Status Date Activated Date Inactivated Comments Full Code 10/10/2019 4:19 AM 10/10/2019 4:28 PM Documents on File Type Date Recorded Patient 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 documented in this encounter* Adamaris Hines MA - 07/03/2018 3:00 PM EDT CPAP supply order faxed to [facility], per patient request. F: [phone] Confirmation received. documented in this encounter* Angelo Rios MD - 12/10/2018 10:[address] Bernadine Verma MD, I had the pleasure of seeing our mutual patient, Ector Guerin, who returns to see me in my clinic at [facility]. IMPRESSION/RECOMMENDATIONS 1. Mr. Guerin is a pleasant 48-year-old male with moderate COPD, Gold stage II, with category B, with centrilobular emphysema on the CT scan of chest. At this time, I would continue Dulera and Tudorza, and continue working on smoking cessation. He has not enrolled in pulmonary rehabilitation as advised. I have discussed with him about cutting down on the salt intake and fluid intake. Heis also on Lasix but is not compliant with it. 2. He does have severe obstructive sleep apnea for which he is on BiPAP 19/15 and was doing well. She gained weight since his last sleep study and apparently his BiPAP device is not working well. We will repeat another sleep study and try to get him a new device. I ordered a titration study to adjust his BiPAP pressures. 3. He does have mild pulmonary hypertension due to his obstructive sleep apnea and possibly obesity-related hypoventilation. Continues BiPAP and Lasix at this time. 4. Tobacco dependence. I did discuss with him the importance of cessation of smoking. He will continue working on cessation. 5. Obesity related restrictive lung disease for which I did discuss with him about weight reductionstrategies. I will see him back in about 6 months on further followup. Please do not hesitate to contact me if you have any questions or concerns. Thanks so much for allowing me to participate in the care of this nice patient. Sincerely, Angelo Rios MD History of presenting illness As you know, Mr. Guerin is a pleasant 48-year-old male with COPD and obstructive sleep apnea. He is here for further followup. Since his last visit, he has been using BiPAP 19/15 but tells me his device is not working well all the time. He has been using this every night and also with naps. He is currently on Dulera and Tudorza and has been doing well with this. He continues to have dyspnea on mild to moderate exertional activity and has stable weight since last visit. He continues tohave significant exertional dyspnea which has been stable. He has to stop at less than 100 yards for a few minutes with walking because of dyspnea. He exercises only occasionally and has not enrolledin pulmonary rehabilitation. He uses a full-face mask for interface. [place] Sleepiness Scale is 9/24. He continues to smoke about half a pack to a pack of cigarettes a day. He continues to have a cough with whitish sputum production. Denies any fevers, chills, night sweats, or hemoptysis. He is taking his Lasix as prescribed. He does complain of stable lower extremity edema. Downloaded compliance data today not available He has a past medical history of COPD (chronic obstructive pulmonary disease) ([facility]), Diabetes mellitus ([facility]), GERD (gastroesophageal reflux disease), and Hyperlipidemia. He has No Known Allergies. Current Outpatient Medications: acetaminophen (TYLENOL EXTRA STRENGTH) 500 MG tablet, Take by mouth., Disp: , Rfl: aclidinium bromide (TUDORZA PRESSAIR) 400 mcg/actuation AePB, Inhale 1 (one) puff (400 mcg total) every 12 (twelve) hours ., Disp: 1 each, Rfl: 11 albuterol (PROVENTIL) 2.5 mg /3 mL (0.083 %) nebulizer solution, Take 2.5 mg by nebulization every 6 (six) hours as needed for wheezing., Disp: , Rfl: albuterol 90 mcg/actuation inhaler, Inhale 2 (two) puffs every 6 (six) hours as needed for wheezing., Disp: 1 Inhaler, Rfl: 11 atorvastatin (LIPITOR) 20 MG tablet, , Disp: , Rfl: clotrimazole-betamethasone (LOTRISONE) cream, Apply to jamie rectal area three times a day for four weeks, Disp: , Rfl: DULERA 200-5 mcg/actuation HFAA, Inhale 2 (two) puffs (400 mcg total) 2 (two) times a day ., Disp: 1 Inhaler, Rfl: 11 metFORMIN (GLUCOPHAGE) 1000 MG tablet, Take 1,000 mg by mouth 2 (two) times a day with meals ., Disp: , Rfl: montelukast (SINGULAIR) 10 mg tablet, Take 1 (one) tablet (10 mg total) by mouth nightly ., Disp: 30 tablet, Rfl: 11 omeprazole (PRILOSEC) 40 MG capsule, Take 40 mg by mouth daily ., Disp: , Rfl: potassium chloride SA (K-DUR,KLOR-CON) 20 MEQ tablet, Take 20 mEq by mouth daily ., Disp: , Rfl: VICTOZA 2-ACOSTA 0.6 mg/0.1 mL (18 mg/3 mL) Pen, Inject 1.2 mg under the skin daily ., Disp: , Rfl: buPROPion (WELLBUTRIN SR) 150 MG 12 hr tablet, Take 150 mg by mouth., Disp: , Rfl: fluticasone propionate (FLONASE) 50 mcg/actuation nasal spray, Instill 2 (two) sprays into each nostril daily ., Disp: 16 g, Rfl: 12 furosemide (LASIX) 40 MG tablet, Take 40 mg by mouth daily ., Disp: , Rfl: senna-docusate (SENNA-S) 8.6-50 mg, Take by mouth., Disp: , Rfl: He reports that he has been smoking. He has been smoking about 1.00 pack per day. He has never usedsmokeless tobacco. reports no history of alcohol use. reports no history of drug use. Family History Problem Relation Age of Onset Cancer Mother Hypertension Mother Family Hx: Negative for any Lung problems. All systems reviewed and are negative except as mentioned above. Vitals at the time of my exam were Blood pressure 132/78, pulse 78, resp. rate (!) 20, SpO2 93 %. On RA. In general, the patient is a pleasant male in no acute distress. HEENT exam reveals a moist oral mucosa with no lesions, and the oropharynx is clear. Sclerae and conjunctivae are normal. There is no lymphadenopathy in the neck and there is no wheezing or stridor over the neck. Heart is regularand without murmur, rub, or gallop. Auscultation of the lungs reveals prolonged expiration; breathing is not labored with no accessory muscle use. Percussion of the lungs is dullness diffuse. Abdomenis soft, with no tenderness and normal bowel sounds. There is lower extremity edema, and there is no cyanosis or clubbing. PFT Results PFT Pre-bronchodilator 04/01/17915 FVC 2.96 (% predicted) 56 FEV1 2.10 (% predicted) 51 FEV1/FVC 71 VC 2.96 (% predicted) 56 PFT Post-bronchodilator 04/01/17915 FVC 3.02 (% predicted) 57 (% change) 2 FEV1 2.12 (% predicted) 51 (% change) 1 FEV1/FVC 70 PFT Lung Volumes 04/01/17915 TLC 4.96 (% predicted) 70 RV 2.00 (% predicted) 90 PFT Diffusion 02/06/18 0916 DLCO 19.5 (% predicted) 51 DLCO/VA 4.57 (% predicted) 109 ECHO in 2018: RV function mildly reduced, has normal EF This note was dictated using [email or web address]/ Dictation Software and may contain errors that were not corrected during editing. documented in this encounter* Kim Rust LPN - 12/10/2018 1:57 PM EDT Order faxed to [facility] for titration study documented in this encounter* Kim Rust LPN - 03/11/2019 8:39 AM EST Received fax from Roger from [employer] that he spoke with patient on 03/03/19 and patient is unable to afford the bipap and does not want to proceed with set-up. documented in this encounter* Nga Serrano MA - 02/26/2019 3:46 PM EST Patient insurance is no longer covering Tudorza or Symbicort. The patient is asking that we change Dulera to Symbicort 160 or Symbicort 80. Also change Tudorza to Atrovent or Incruse. Will consult with Dr. Rios documented in this encounter* Angelo Rios MD - 06/04/2018 9:[address] Bernadine Verma MD, I had the pleasure of seeing our mutual patient, Ector Guerin, who returns to see me in my clinic at [facility]. IMPRESSION/RECOMMENDATIONS 1. Mr. Guerin is a pleasant 47-year-old male with moderate COPD, Gold stage II, with category B, with centrilobular emphysema on the CT scan of chest. At this time, I would continue Dulera and Tudorza, and continue working on smoking cessation. He is awaiting pulmonary rehabilitation, to help him improve his endurance. He has seen cardiology in the interim and had a normal echo. I also discussed with him about cutting down on the salt intake and fluid intake. He is also on Lasix but is not compliant with it. 2. He does have severe obstructive sleep apnea for which he is on BiPAP 19/15 and has been doing well. Compliance data today shows residual apnea-hypopnea index of 0, 100% compliance, and average usage is around 9-1/2 hours. 3. He does have mild pulmonary hypertension due to his obstructive sleep apnea and possibly obesity-related hypoventilation. Continues BiPAP at this time. 4. Tobacco dependence. I did discuss with him the importance of cessation of smoking. He will continue working on cessation. 5. Obesity related restrictive lung disease for which I did discuss with him about weight reductionstrategies. I will see him back in about 6 months on further followup. Please do not hesitate to contact me if you have any questions or concerns. Thanks so much for allowing me to participate in the care of this nice patient. Sincerely, Angelo Rios MD History of presenting illness As you know, Mr. Guerin is a pleasant 47-year-old male with COPD and obstructive sleep apnea. He is here for further followup. Since his last visit, he has been using BiPAP 19/15 and has been doing well. He has been using this every night and also with naps. He is also using both Dulera and Tudorza and has been doing well with this. He continues to have dyspnea on mild to moderate exertional activity and has stable weight since last visit. He continues to have significant exertional dyspnea. He has to stop at less than 100 yards for a few minutes with walking because of dyspnea. He exercises only occasionally and is still waiting to get into pulmonary rehabilitation. He denies anyproblems with his BiPAP and uses a full-face mask for interface. [place] Sleepiness Scale is 8/24. He continues to smoke about half a pack to a pack of cigarettes a day. He continues to have a cough with whitish sputum production. Denies any fevers, chills, night sweats, or hemoptysis. He is not taking his Lasix as prescribed. He does complain of slightly worsened lower extremity edema. Downloaded compliance data today shows 100% compliance and 9 hours and 23 minute average usage time. Residual AHI is 0. He has a past medical history of COPD (chronic obstructive pulmonary disease) ([facility]), Diabetes mellitus (HCC), GERD (gastroesophageal reflux disease), and Hyperlipidemia. He has No Known Allergies. Current Outpatient Medications: albuterol (PROVENTIL) 2.5 mg /3 mL (0.083 %) nebulizer solution, Take 2.5 mg by nebulization every 6 (six) hours as needed for wheezing., Disp: , Rfl: albuterol 90 mcg/actuation inhaler, Inhale 2 (two) puffs every 6 (six) hours as needed for wheezing., Disp: 1 Inhaler, Rfl: 11 atorvastatin (LIPITOR) 20 MG tablet, , Disp: , Rfl: DULERA 200-5 mcg/actuation HFAA, Inhale 2 (two) puffs (400 mcg total) 2 (two) times a day., Disp: 1Inhaler, Rfl: 11 furosemide (LASIX) 40 MG tablet, Take 40 mg by mouth daily ., Disp: , Rfl: metFORMIN (GLUCOPHAGE) 1000 MG tablet, Take 1,000 mg by mouth 2 (two) times a day with meals ., Disp: , Rfl: montelukast (SINGULAIR) 10 mg tablet, Take 1 (one) tablet (10 mg total) by mouth nightly., Disp: 30tablet, Rfl: 11 omeprazole (PRILOSEC) 40 MG capsule, Take 40 mg by mouth daily ., Disp: , Rfl: potassium chloride SA (K-DUR,KLOR-CON) 20 MEQ tablet, Take 20 mEq by mouth daily ., Disp: , Rfl: TUDORZA PRESSAIR 400 mcg/actuation AePB, INHALE ONE DOSE BY MOUTH EVERY 12 HOURS, Disp: 1 each, Rfl: 11 VICTOZA 2-ACOSTA 0.6 mg/0.1 mL (18 mg/3 mL) Pen, Inject 1.2 mg under the skin daily ., Disp: , Rfl: acetaminophen (TYLENOL EXTRA STRENGTH) 500 MG tablet, Take by mouth., Disp: , Rfl: buPROPion (WELLBUTRIN SR) 150 MG 12 hr tablet, Take 150 mg by mouth., Disp: , Rfl: buPROPion (WELLBUTRIN SR) 150 MG 12 hr tablet, TAKE ONE TABLET BY MOUTH TWICE A DAY, Disp: 60 tablet, Rfl: 10 senna-docusate (SENNA-S) 8.6-50 mg, Take by mouth., Disp: , Rfl: He reports that he has been smoking. He has been smoking about 1.00 pack per day. He has never usedsmokeless tobacco. reports that he does not drink alcohol. reports that he does not use drugs. Family History Problem Relation Age of Onset Cancer Mother Hypertension Mother Family Hx: Negative for any Lung problems. All systems reviewed and are negative except as mentioned above. Vitals at the time of my exam were Blood pressure 111/72, pulse 75, resp. rate 12, height 5' 11 , SpO2 95 %. On RA. In general, the patient is a pleasant male in no acute distress. HEENT exam revealsa moist oral mucosa with no lesions, and the oropharynx is clear. Sclerae and conjunctivae are normal. There is no lymphadenopathy in the neck and there is no wheezing or stridor over the neck. Heartis regular and without murmur, rub, or gallop. Auscultation of the lungs reveals prolonged expiration; breathing is not labored with no accessory muscle use. Percussion of the lungs is dullness diffuse. Abdomen is soft, with no tenderness and normal bowel sounds. There is lower extremity edema, andthere is no cyanosis or clubbing. PFT Results PFT Pre-bronchodilator 04/01/17 0916 FVC 2.96 (% predicted) 56 FEV1 2.10 (% predicted) 51 FEV1/FVC 71 VC 2.96 (% predicted) 56 PFT Post-bronchodilator 04/01/17 0916 FVC 3.02 (% predicted) 57 (% change) 2 FEV1 2.12 (% predicted) 51 (% change) 1 FEV1/FVC 70 PFT Lung Volumes 04/01/17 0916 TLC 4.96 (% predicted) 70 RV 2.00 (% predicted) 90 PFT Diffusion 04/01/17 0916 DLCO 19.5 (% predicted) 51 DLCO/VA 4.57 (% predicted) 109 ECHO in 2018: RV function mildly reduced, has normal EF This note was dictated using [email or web address]/ Dictation Software and may contain errors that were not corrected during editing. in this encounter* Kim Rust LPN - 12/28/2019 9:49 AM EST Patient left a vm that he dropped his nebulizer machine and it broke and he would like a rx for a new one. [facility] I called Sheila at [facility] and she will call patient. She states she can exchange it. documented in this encounter Discharge Instructions * Attachments The following attachments cannot be sent through Care Everywhere. * Chest Pain ([place]) * Chronic Health Conditions: Conserving Energy ([place]) * COPD: Asthma ([place]) documented in this encounter* Instructions* Debbie Erwin MD - 06/15/2018 Dental Clinics We recommend that you follow-up with the dentist as soon as possible (KEITH). If you do not have one, here are some options: [facility] [phone] [place] [phone] [address] [facility] (Dental Clinic) [phone] [address] [facility] [address] By appointment only. $40 standard fee - adjustable per household income [facility] [phone] [address] [facility] [phone] [address] [facility] [phone] [address] [place], [place] [address] [facility] [phone] [address] [facility] Ins[facility] [phone] [address] [place] [address] [facility] [phone] [address] [place] [address] [facility] [employer] [facility] [phone] [place] [address] [facility] Family Practice [phone] [facility] [phone] [facility] Will take walk-in patients during certain hours of the day. [phone] [facility] Will take walk-in patients during certain hours of the day. * Attachments The following attachments cannot be sent through Care Everywhere. * Periodontal Conditions ([place]) * Smoking Cessation: Health Benefits: General Info ([place]) documented in this encounter Reason for Referral Status Reason Specialty Diagnoses / Procedures Referre d By Contact Referred To Contact Closed Angelo Rios MD [address] [place] [address] Additional Source Comments (unrecognized sect ion and content) No Status Records FoundNo Status Records FoundNo Status Records FoundNo Status Records FoundNo Status Records FoundNo Status Records FoundNo Status Records Found INFORMATION SOURCE (unrecogn ized section and content) DATE CREATED AUTHOR 08/20/2017 [facility] DATE CREATED AUTHOR AUTHOR'S ORGANIZ ATION 06/15/2018 [facility] DATE CREATED AUTHOR AUTHOR'S ORGANIZ ATION 10/21/2019 [facility] DATE CREATED AUTHOR AUTHOR'S ORGANIZ ATION 05/19/2020 [facility] DATE CREATED AUTHOR AUTHOR'S ORGANIZ ATION 06/18/2020 [facility] DATE CREATED AUTHOR AUTHOR'S ORGANIZ ATION 04/13/2021 [facility] DATE CREATED AUTHOR AUTHOR'S ORGANIZ ATION 03/30/2023 [facility] Reason for Visit (unrecogniz ed section and content) Reason Comments Follow-up Error Reason Comments CPAP supplies Reason Comments Follow-up COPD Sleep Apnea needs new cpap agustina anthony has new insurance to medicare was told he needs new sleep study to get machine Reason Comments titration study ordered Reason Comments bipap status Reason Comments Chest Pain COPD Reason Comments Dental Pain Reason Comments Medication Refill Reason Comments Follow-up COPD Sleep Apnea uses bipap hav e data Reason Onset Date Comments nebulizer 12/28/2019 Reason Comments Follow-up copd/emphysema Reason Onset Date Comments Medication Refill 08/18/2020 Reason Onset Date Comments tudorza denied 12/01/2019 Kayla Mcarthur RN - 10/10/2019 3:32 AM Kayla Wharton RN - 10/10/2019 3:31 AM Viviana Oneill 10/09/2019 11:47 PM EDTMyah Valle MD - 10/09/2019 11:33 PM EDT ED Notes (unrecognized secti on and content) Pt sent to [facility], room 641 B with all their belongings (i.e shoes, clothes, wallet, symbicort inhaler). All questions/concerns were answered/addressed for EMS. EMS was sent with pt packet consisting of transfer paperwork and location. EMS denies any further questions/concerns at this time. Pt and/or pt family member denies any further questions/concerns at this time. Pt sent via [facility] at this time. Pt sent with established IV at this time. Pt IV was saline locked. Pt advised to not tamper with IV. Pt verbalized understanding. Pt did not ambulate d/t O2 sats being 90-93% on RA. Pt was placed on 2 L NC. Pt sats improved to 96%. Pt std he was starting to feel better but did not feel he was able to ambulate d/t fatigue and SOB. Registration completed outside patient's door Registrar and patient wearing PPE during registration PCP: Bernadine Verma MD Chief Complaint Patient presents with Chest Pain COPD HPI: Mr Guerin is a 48-year-old male who presents the ER today with shortness of breath wheezing cough nonproductive for last 2 days. Worsening today, he states he was try to use his home albuterol treatments though states he would only use them for 10 or 15 seconds and felt he is getting more congestion of his chest when he was using these. He denies nausea or diaphoresis. Denies fevers or chills. Denies productive cough. Denies leg pain calf pain or swelling. He says any chest tightness tonight. EMS picked him up to bring him to this ED he was not given any medications, aspirin IV treatments or other in route. He presents here diffuse wheezing throughout all lung goodson, initially declining breathing treatments as he states that is what caused him to be short of breath. Patient he agrees to these. Agrees to aspirin, IV steroid and covid swab. Discussed patient that initial plan would be breathing treatments, though interestingly he was somewhat hesitant about this because he believed those were causing him to feel more short of breath and more congested today, chest x-ray, lab work possible repeat and depending on findings possible transfer to [place] later. At first he does not wish for cardiac work-up such as echo or stress test as he feels this is all from COPD. Later he is agreeable to any work-up necessary as he was concerned based on discussion with his sister that could be his heart if not his lungs. My impression on first evaluation of him and talked with him is that this is a COPD exacerbation. Cardiac work-up discussion was because he is morbidly obese with underlying cardiac risk factors. REVIEW OF SYSTEMS: Review of Systems Constitutional: Negative for chills, diaphoresis, fatigue and fever. Eyes: Negative for photophobia and visual disturbance. Respiratory: Positive for cough, chest tightness, shortness of breath and wheezing. Cardiovascular: Positive for chest pain. Gastrointestinal: Negative for abdominal pain, nausea and vomiting. Musculoskeletal: Negative for arthralgias, back pain, myalgias, neck pain and neck stiffness. Skin: Negative for color change, pallor, rash and wound. Neurological: Negative for dizziness, weakness, light-headedness, numbness and headaches. Hematological: Negative for adenopathy. Does not bruise/bleed easily. All other systems reviewed and are negative. Past Medical History: Past Medical History: Diagnosis Date COPD (chronic obstructive pulmonary disease) (HCC) Diabetes mellitus (HCC) GERD (gastroesophageal reflux disease) Hyperlipidemia Past medical history reviewed. Past Surgical History: History reviewed. No pertinent surgical history. Past surgical history reviewed. Family History: Family History Problem Relation Age of Onset Cancer Mother Hypertension Mother Family history reviewed. Social History: Social History Socioeconomic History Marital status: Single Spouse name: Not on file Number of children: Not on file Years of education: Not on file Highest education level: Not on file Occupational History Not on file Social Needs Financial resource strain: Not on file Food insecurity Worry: Not on file Inability: Not on file Transportation needs Medical: Not on file Non-medical: Not on file Tobacco Use Smoking status: Current Every Day Smoker Packs/day: 1.00 Smokeless tobacco: Never Used Substance and Sexual Activity Alcohol use: No Drug use: No Sexual activity: Not on file Lifestyle Physical activity Days per week: Not on file Minutes per session: Not on file Stress: Not on file Relationships Social connections Talks on phone: Not on file Gets together: Not on file Attends caodaism service: Not on file Active member of club or organization: Not on file Attends meetings of clubs or organizations: Not on file Relationship status: Not on file Other Topics Concern Not on file Social History Narrative Not on file Social history reviewed. Allergies: No Known Allergies Medications: Ector Guerin Home Medication Instructions Prior to Surgery NEISHA:[id number] Printed on:10/10/19 0320 Medication Information Take last dose on Take the morning of surgery Comment(s) acetaminophen (TYLENOL EXTRA STRENGTH) 500 MG tablet Take by mouth. albuterol (PROVENTIL) 2.5 mg /3 mL (0.083 %) nebulizer solution Take 2.5 mg by nebulization every 6 (six) hours as needed for wheezing. albuterol 90 mcg/actuation inhaler Inhale 2 (two) puffs every 6 (six) hours as needed for wheezing . atorvastatin (LIPITOR) 20 MG tablet budesonide-formoterol (Symbicort) 160-4.5 mcg/actuation inhaler Inhale 2 (two) puffs 2 (two) times a day . buPROPion (WELLBUTRIN SR) 150 MG 12 hr tablet Take 150 mg by mouth. clotrimazole-betamethasone (LOTRISONE) cream Apply to jamie rectal area three times a day for four weeks fluticasone propionate (FLONASE) 50 mcg/actuation nasal spray Instill 2 (two) sprays into each nostril daily . furosemide (LASIX) 40 MG tablet Take 40 mg by mouth daily . ipratropium-albuteroL (DUO-NEB) 0.5-2.5 mg/3 ml nebulizer Take 3 mL by nebulization every 6 (six) hours as needed for wheezing Dx: J44.9 . metFORMIN (GLUCOPHAGE) 1000 MG tablet Take 1,000 mg by mouth 2 (two) times a day with meals . montelukast (SINGULAIR) 10 mg tablet Take 1 (one) tablet (10 mg total) by mouth nightly . omeprazole (PRILOSEC) 40 MG capsule Take 40 mg by mouth daily . potassium chloride SA (K-DUR,KLOR-CON) 20 MEQ tablet Take 20 mEq by mouth daily . predniSONE (DELTASONE) 20 MG tablet Take 2 (two) tablets (40 mg total) by mouth daily for 5 days Start: 10/10/19. senna-docusate (SENNA-S) 8.6-50 mg Take by mouth. umeclidinium (Incruse Ellipta) 62.5 mcg/actuation DsDv Inhale 1 puff daily . VICTOZA 2-ACOSTA 0.6 mg/0.1 mL (18 mg/3 mL) Pen Inject 1.2 mg under the skin daily . PHYSICAL EXAMINATION: Vital Signs BP 133/71 Pulse 92 Temp 98.2 F (36.8 C) (Oral) Resp (!) 20 Ht 5' 10 Wt (!) 167.8 kg (370 lb) SpO2 97% BMI 53.09 kg/m Physical Exam Vitals signs and nursing note reviewed. Constitutional: Appearance: He is obese. He is not ill-appearing, toxic-appearing or diaphoretic. Eyes: General: No scleral icterus. Pupils: Pupils are equal, round, and reactive to light. Neck: Musculoskeletal: No neck rigidity. Cardiovascular: Rate and Rhythm: Normal rate. Heart sounds: No murmur. Pulmonary: Effort: Tachypnea present. No accessory muscle usage, prolonged expiration or retractions. Breath sounds: No stridor. Examination of the right-middle field reveals wheezing. Examination of the left-middle field reveals wheezing. Examination of the right- lower field reveals wheezing. Examination of the left-lower field reveals wheezing. Wheezing present. No rhonchi. Chest: Chest wall: No tenderness. Abdominal: General: Abdomen is flat. Bowel sounds are normal. Palpations: Abdomen is soft. Musculoskeletal: Right lower leg: Edema present. Left lower leg: Edema present. Comments: Trace pitting edema equal bilaterally Lymphadenopathy: Cervical: No cervical adenopathy. Skin: Capillary Refill: Capillary refill takes less than 2 seconds. Coloration: Skin is not pale. Findings: No erythema or rash. Neurological: General: No focal deficit present. Mental Status: He is alert and oriented to person, place, and time. Vital Signs During ED Visit (as charted by nursing) Patient Vitals for the past 24 hrs: BP Temp Temp src Pulse Resp SpO2 Height Weight 10/10/19 0030 97 % 10/10/19 0015 92 (!) 20 95 % 10/09/19 2332 133/71 94 (!) 30 95 % 10/09/19 2330 (!) 23 93 % 10/09/19 2329 (!) 20 94 % 10/09/19 2318 (!) 19 10/09/19 2317 116/67 93 (!) 29 94 % 10/09/19 2302 136/74 97 (!) 24 95 % 10/09/19 2237 134/77 98.2 F (36.8 C) Oral 88 (!) 32 94 % 5' 10 (!) 167.8 kg (370 lb) MEDICAL DECISION MAKING: Mr Guerin, update: COPD exacerbation: Patient had stated he was 7 breathing treatments throughout the day, last was 4 hours prior to arrival to ED. He was fairly hesitant getting any further treatments in the ED as he had believed that these caused him to feel more short of breath more congested. But speaking with him to clarify that she appears that are likely causing the cough more as it likely open up his airways and dried out his secretions at home. Chest x-ray is unremarkable. He received steroid Solu-Medrol, aspirin x4, COVID negative. We are going to ambulate him to determine what his pulse ox would be with exertion however even before this he is 88 to 90% on room air. He is now 94% on 2 L nasal cannula.. At this time in time of transfer he does not wish for further treatment as it made him so nauseous and jittery, notably with fine tremors post 3 stacked breathing treatments. Discussed with the transfer center regarding proper placement, I felt he was appropriate for [place]. Speaking to transfer center they attempted to get him to [facility] short stay unit. Speak with the provider at the short stay we both do not feel he is appropriate for there. Therefore he was then accepted back to [place] for proper placement, safe observation admission and ability to begin his home BiPAP settings . Chest pain: Appears to be from the COPD. 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 If this were taken as not indicative of a point on the heart score then his heart score is 3. At this point 2 troponins negative. Watching TV denies any current chest pain. Chest pain really went away with the breathing treatments. IMPRESSION: 1. COPD exacerbation (HCC) 2. Chest pain, unspecified type DIAGNOSTICS: Laboratory (if any, during ED visit): Labs Reviewed POC CBC AND DIFFERENTIAL - Abnormal; Notable for the following components: Result Value RDW - CV 15.2 (*) Neutrophils Abs 7.65 (*) All other components within normal limits POC VBG (EPOC) WITH FULL PANEL - RALS - Abnormal; Notable for the following components: O2 Sat, Abraham 71.7 (*) Glucose 202 (*) Ionized Calcium 4.1 (*) All other components within normal limits Narrative: The eGFR should be used for monitoring renal function only and not for medication dosing. Specimens collected in a lithium heparin tube may show erroneous pO2, pCO2 and related calculations due to aerobic handling. If the most accurate venous blood gas results are needed, use a heparinized blood gas syringe. POC TROPONIN I RALS - Normal POC COVID-19, MOLECULAR - Normal POC TROPONIN I RALS - Normal POC VBG (EPOC) WITH FULL PANEL POC TROPONIN I COVID-19, MOLECULAR RADIOGRAPHIC IMAGING (if any, during ED visit): XR Chest 1 View Preliminary Result No acute cardiopulmonary disease. [employer] Workstation ID: [id number] MEDICATIONS ORDERED/GIVEN (if any, during ED visit): Medications ipratropium-albuteroL (DUO-NEB) 0.5-2.5 mg/3 ml nebulizer solution 3 mL (3 mL Inhalation Given 10/09/19 3767) sodium chloride (PF) (NS) flush 5 mL (has no administration in time range) And sodium chloride 0.9% (NS) (has no administration in time range) methylPREDNISolone sod suc(PF) (SOLU-medrol) Injection 125 mg (125 mg Intravenous Given 10/09/192258) aspirin chewable tablet 324 mg (324 mg Oral Given 10/09/192258) The secretary office clerk of Health and Human Services and Chris Street, governor of the [facility], have declared a state of public health emergency due to the spread of a novel coronavirus and disease COVID-19. There is no currently accepted treatment except conservative measures and respiratory support if appropriate. This has led to significant resource scarcity and potential delays in care. PPE worn during exam. Patient wore a mask during exam. New Prescriptions predniSONE (DELTASONE) 20 MG tablet Starting on 10/10/2019. Take 2 (two) tablets (40 mg total) by mouth daily for 5 days Start: 10/10/19. Myah Valle MD 10/10/19 0322 Per EMS, pt has hx of COPD. Pt has been havng chest tightness and pain since 1999. Pt reported pain and tightness has worsened since then. Pt reported he took half dose of his symbicort with no relief. Per EMS, pt has expiratory wheezes with diminished breath sounds bilateral. EMS reported pt O2 sats on room air were 92-94%. Pt reported trying his CPAP machine at home intermittently with no relief. Pt reported he has albuterol nebulizer at home without relief. Pt denies any hx of cardiac issues. Pt denies blood thinners or ASA daily. Pt reported this episode feels similar to past episodes of exacerbation but reported today is worse than usual. Pt reported intermittent chest tightness. Pt denies any pain. Pt denies any n/v/d or fever. Pt reported chills earlier in the day. documented in this encounter [facility] ED Attending Note: NAME: Ector Guerin 47 y.o. CSN: [id number] PCP: Bernadine Verma MD History: Chief Complaint: Dental Pain HPI: 47-year-old male who presents today with several days of worsening left lower molar jaw pain. He reports that he is been taking ibuprofen and Tylenol without improvement of his symptoms. He is been having heat and cold and tolerance as well. He denies any direct trauma or injury but reports that this tooth has been bothering him for some time. He does have an appointment with the dentist on Friday. He is diabetic and he does smoke. He denies any sore throat, fevers, chills, chest pain, shortness of breath. He has been able to eat and drink however it is painful to do so. He is unable to chew on the other side. He had an appointment with his qualitative executive researcher who sent him down here for further evaluation. PMHx: Past Medical History: Diagnosis Date COPD (chronic obstructive pulmonary disease) (HCC) Diabetes mellitus (HCC) GERD (gastroesophageal reflux disease) Hyperlipidemia PMSx: History reviewed. No pertinent surgical history. FAM. Hx: Family History Problem Relation Age of Onset Cancer Mother Hypertension Mother SOC. Hx: Social History Socioeconomic History Marital status: Single Spouse name: Not on file Number of children: Not on file Years of education: Not on file Highest education level: Not on file Social Needs Financial resource strain: Not on file Food insecurity - worry: Not on file Food insecurity - inability: Not on file Transportation needs - medical: Not on file Transportation needs - non-medical: Not on file Occupational History Not on file Tobacco Use Smoking status: Current Every Day Smoker Packs/day: 1.00 Smokeless tobacco: Never Used Substance and Sexual Activity Alcohol use: No Drug use: No Sexual activity: Not on file Other Topics Concern Not on file Social History Narrative Not on file MEDs: No current facility-administered medications for this encounter. Current Outpatient Medications Medication Sig Dispense Refill acetaminophen (TYLENOL EXTRA STRENGTH) 500 MG tablet Take by mouth. aclidinium bromide (TUDORZA PRESSAIR) 400 mcg/actuation AePB Inhale 1 (one) puff (400 mcg total) every 12 (twelve) hours . 1 each 11 albuterol (PROVENTIL) 2.5 mg /3 mL (0.083 %) nebulizer solution Take 2.5 mg by nebulization every 6 (six) hours as needed for wheezing. albuterol 90 mcg/actuation inhaler Inhale 2 (two) puffs every 6 (six) hours as needed for wheezing . 1 Inhaler 11 atorvastatin (LIPITOR) 20 MG tablet buPROPion (WELLBUTRIN SR) 150 MG 12 hr tablet Take 150 mg by mouth. DULERA 200-5 mcg/actuation HFAA Inhale 2 (two) puffs (400 mcg total) 2 (two) times a day . 1 Inhaler 11 fluticasone propionate (FLONASE) 50 mcg/actuation nasal spray Instill 2 (two) sprays into each nostril daily . 16 g 12 furosemide (LASIX) 40 MG tablet Take 40 mg by mouth daily . metFORMIN (GLUCOPHAGE) 1000 MG tablet Take 1,000 mg by mouth 2 (two) times a day with meals . montelukast (SINGULAIR) 10 mg tablet Take 1 (one) tablet (10 mg total) by mouth nightly . 30 tablet 11 omeprazole (PRILOSEC) 40 MG capsule Take 40 mg by mouth daily . penicillin v potassium (VEETID) 500 MG tablet Take 1 (one) tablet (500 mg total) by mouth 4 (four) times a day for 7 days . 28 tablet 0 potassium chloride SA (K-DUR,KLOR-CON) 20 MEQ tablet Take 20 mEq by mouth daily . senna-docusate (SENNA-S) 8.6-50 mg Take by mouth. VICTOZA 2-ACOSTA 0.6 mg/0.1 mL (18 mg/3 mL) Pen Inject 1.2 mg under the skin daily . ALL: No Known Allergies ROS: Review of Systems Constitutional: Negative for appetite change, chills and fever. HENT: Positive for dental problem. Negative for congestion, rhinorrhea and sore throat. Respiratory: Negative for shortness of breath. Cardiovascular: Negative for chest pain. Gastrointestinal: Negative for abdominal pain, diarrhea, nausea and vomiting. Endocrine: Negative for cold intolerance and heat intolerance. Genitourinary: Negative for dysuria, flank pain, frequency and urgency. Musculoskeletal: Negative for back pain and neck pain. Skin: Negative for rash. Neurological: Negative for syncope, light-headedness and headaches. Psychiatric/Behavioral: Negative for confusion. All other systems reviewed and are negative. All systems reviewed negative except as mentioned above. Physical Exam: Patient Vitals for the past 24 hrs: BP Temp Temp src Pulse Resp SpO2 Height Weight 06/15/18 1107 (!) 152/77 97.8 F (36.6 C) Oral 76 16 96 % 5' 11 (!) 176.9 kg (390 lb) Physical Exam Constitutional: He is oriented to person, place, and time. He appears well- developed and well-nourished. No distress. HENT: Head: Normocephalic and atraumatic. Mouth/Throat: Eyes: Conjunctivae and EOM are normal. Right eye exhibits no discharge. Left eye exhibits no discharge. Neck: Neck supple. Cardiovascular: Normal rate, regular rhythm and normal heart sounds. Exam reveals no gallop and no friction rub. No murmur heard. Pulmonary/Chest: Effort normal and breath sounds normal. No respiratory distress. He has no wheezes. He has no rales. Abdominal: Soft. He exhibits no distension. There is no tenderness. Musculoskeletal: Normal range of motion. Neurological: He is alert and oriented to person, place, and time. Coordination normal. Skin: Skin is warm and dry. Capillary refill takes less than 2 seconds. He is not diaphoretic. No pallor. Psychiatric: He has a normal mood and affect. Nursing note and vitals reviewed. Laboratory & Radiological Imaging (if done): Labs Reviewed - No data to display No orders to display ED Course / Medical Decision Making: Patient's examination is reassuring. 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 Did discuss a trial of penicillin, as well as strict return precautions. Did encourage him to keep his appointment with the dental clinic in 2 days. However I did offer him additional dental resources if he is able to find a ride today. I did discuss smoking cessation for 3 minutes and he verbalized understanding. I estimate there is LOW risk for DEEP SPACE INFECTION (e.g., JASON S ANGINA OR RETROPHARYNGEAL ABSCESS), BACTERIAL MENINGITIS, or AIRWAY COMPROMISE, thus I consider the discharge disposition reasonable. Ector Guerin (or their surrogate) and I have discussed the diagnosis and risks, and we agree with discharging home with close follow-up. We also discussed returning to the Emergency Department immediately if new or worsening symptoms occur. We have discussed the symptoms which are most concerning that necessitate immediate return Clinical Impression: SNOMED CT(R) 1. Pain, dental TOOTHACHE Disposition: Patient is being discharged to home MD Debbie Perez MD 06/15/18 1254 Patient reports tooth pain that started on Friday. Has a dentist appointment on Friday. documented in this encounter ED Procedure Note - Myah Valle MD - 10/09/2019 11:34 PM EDT Miscellaneous Notes (unrecog nized section and content) Associated Order(s): EKG 12-lead EKG 12-lead Date/Time: 10/09/2019 11:34 PM Performed by: Myah Valle MD Authorized by: Myah Valle MD Interpreted by ED attending physician Comparison: compared with previous ECG from 01/23/2018 Similar to previous ECG Rhythm: sinus rhythm BPM: 85 Conduction: LAFB QRS axis: left T Inversion: aVL MD Interval: 168 QRS Interval: 88 QT Interval: 433 Clinical impression: non-specific ECG documented in this encounter Care Teams (unrecognized sec tion and content) Assistant Director Of Nursing Relationship Specialty Start Date End Date Bernadine Verma MD [address] [place] [address] PCP - General Internal Medicine 06/17/14 Al Solomon, SOD STRIPPER [address] [phone] Nurse Practitioner Pulmonology 10/21/19 FOR RECORDS PERTAINING TO PATIENTS WHO ARE OR HAVE BEEN ENROLLED IN A CHEMICAL DEPENDENCY/SUBSTANCEABUSE PROGRAM, SOME INFORMATION MAY BE OMITTED. This clinical summary was aggregated from multiple sources. Caution should be exercised in using it in the provision of clinical care. This summary normalizes information from multiple sources, and as a consequence, information in this document may materially change the coding, format and clinical context of patient data. In addition, data may be omitted in some cases. CLINICAL DECISIONS SHOULD BE BASED ON THE PRIMARY CLINICAL RECORDS. [facility]. provides no warranty or guarantee of the accuracy or completeness of information in this document.
--- NOTE | 2023-07-28 08:48 | CT_ITS ---
[address] [address] Patient Name: FRANKO GUERIN MRN: [id number] date: 1970 Sex: M Assigned Patient Location: CT Current Patient Location: CT Accession/Order Number: [id number] Exam Date: 07/28/2023 08:37 Report Date: 07/28/2023 13:29 At the request of: JAC MATTHEW Procedure: CT lung screening low-dose EXAMINATION: CT lung screening low-dose HISTORY: Screening For Malignant Neoplasm Of Respiratory Organs Z12. COMPARISON: CT chest 11/17/2013 TECHNIQUE: Axial, Coronal, and Sagittal images were created without the administration of IV contrast material. Dose reduction techniques were achieved by using automated exposure control and/or adjustment of mA and/or kV according to patient size and/or use of iterative reconstruction technique. FINDINGS: LUNGS: Irregular soft tissue thickening and stranding/spiculations within posterior right lung base, 7.0 x 7.4 x 1.9 cm. Small amount stranding within left lateral costophrenic angle and lingula. PLEURA: No mass, effusion, or pneumothorax. VASCULATURE: No abnormality. WILFREDO: No mass or pathologic adenopathy. MEDIASTINUM: No mass or pathologic adenopathy. CARDIAC: No enlargement, pericardial thickening, or pericardial effusion. AORTA: No aneurysm or dissection. CHEST WALL: No mass or axillary adenopathy BONES: No bone lesion or fracture. LIMITED ABDOMEN: No suspicious findings. Limited images of the upper abdomen. OTHER: Negative. CT/CT lung screening low-dose IMPRESSION: 1. Lung-RADS Category 4A- Suspicious. Findings for which additional diagnostic testing and/ or tissue sampling is recommended. 3 month LDCT; PET/CT may be used when there is a >= 8 mm solid component. Electronically authenticated by: MALIKA DELCID Date: 07/28/2023 13:29
== END 2023-07-29 08:27 | disposition home or self-care (01) ==
LOC: CT 08-11 14:30
PROVIDERS: PCP Nurse Practitioner Family; Visit Provider Internal Medicine
DX: F17.219 Nicotine dependence, cigarettes, with unspecified nicotine-induced disorders (principal); Z12.2 Encounter for screening for malignant neoplasm of respiratory organs; R91.8 Other nonspecific abnormal finding of lung field
CPT/HCPCS: 71271

== ENCOUNTER 2023-08-02 19:33 | Emergency (ER) | payer MEDICARE, MEDICAID, SELFPAY ==
[2023-08-02] VITALS (18 sets, daily range): BP systolic 124–167; BP diastolic 73–94; PULSE 81–96; TEMP 36.7; O2SAT 93–94; BMI 53.1
--- OUTSIDE RECORDS SUMMARY | 2023-08-02 19:39 | XMS_ITS | CCD ---
Author Organization [facility] Care Team Providers Care Varnish Maker Helper Name Role Phone Verma, Bernadine Unavailable KAELYN PALMER DAVONTE Unavailable Unavailab le PALMER DREMA DAVONTE Unavailable Unavailab le VERMA, BERNADINE Unavailable Unavailable Verma, Bernadine Primary Care Provider VERMA, BERNADINE Primary Care Unavailable DEBBIE ERWIN Attending Unavailabl e Verma, [facility] Primary Care Provider Angelo Rios Unavailable [phone] VERMA, BERNADINE Primary Care Unavailable MYAH VALLE Attending Unav ailable MYAH VALLE Admitting Unav ailable MYAH VALLE Referring Unav ailable VERMA, BERNADINE Primary Care Unavailable CECI GTZ Admitting Unavailable QUIN REYNA Attending Unavaila ble Verma, Bernadine Primary Care Provider Al Solomon Unavailable [phone] SELF, SELF Referring Unavailable DORA VILLAGOMEZ [...] Unavailabl e VERMA, BERNADINE Primary Care Unavailable Bayron SALINAS, [facility] Primary Care Provider [phone] Jean-Paul GAYATRIAl G Unavailable Bayron SALINAS, [facility] Primary Care Provider [phone] Jean-Paul GAYATRIAl G Unavailable Clemjose luis HELPDESK MANAGERAl G Unavailable Bayron SALINAS, [facility] Primary Care Provider Jean-Paul GAYATRIAl Unavailable SELF, SELF Referring Unavailable DORA VILLAGOMEZ Attending Unavailable BAYRON BERNADINE Primary Care Unavailable DORA VILLAGOMEZ Referring Unavailable KIKI CHILDRESS Primary Care Physician Jj Stevens Primary Care Physician [phone] Jj Stevens Admitting Unavailable Jj Stevens Attending Unavailable Jj Stevens Admitting Unavailable Jj Stevens Attending Unavailable Franchesca Don Admitting Unavailable Franchesca Don Attending Unavailable Casey Morse Attending Unavailable Casey Morse Admitting Unavailable Bayron SALINAS, [facility] Primary Care Provider [phone] Clemlarawilfredo MENDIETAAl Unavailable [phone] Medications Current Medications Medication Drug Class(es) Dates Sig (Normalized) Sig (Original) acetaminophen 500 mg oral tablet (18 sources) acetaminophen (TYLENOL EXTRA STRENGTH) 500 MG tablet Take by mouth. 0 Active 30 actuat aclidinium bromide 0.4 mg/actuat dry powder inhaler (19 sources) Start: 02-16-2020 take 400 ug by [...] EVERY 12 HOURS 1 each 08/09/2016 Active [id number] 200 actuat albuterol 0.09 mg/actuat metered dose [...] / ipratropium bromide 0.167 mg/ml inhalation solution (13 sources) Anticholinergic, beta2-Adrenergic Agonist Start: 08-03-2021 End: 01-30-2022 take 3 mL by inhalation four times daily albuterol-ipratropium Inh Jamilah 3 mL UD 3 mL, Inhalation, QID for 30 day(s), 360 mL, Refill(s) 5, [facility]/pharmacy #[id number], 178, cm, 08/03/21 10:30:00 EDT, Height/Length Dosing, 175, kg, 08/03/21 10:30:00 EDT, Weight Dosing Start Date: 08/03/21 Stop Date: 01/30/22 Status: Ordered Start: 08-03-2021 End: 01-30-2022 take 3 mL by inhalation four times daily albuterol-ipratropium Inh Jamilah 3 mL UD 3 mL, Inhalation, QID for 30 day(s), 360 mL, Refill(s) 5, [facility]/pharmacy #[id number], 178, cm, 08/03/21 10:30:00 EDT, Height/Length Dosing, 175, kg, 08/03/21 10:30:00 EDT, Weight Dosing Start Date: 08/03/21 Stop Date: 01/30/22 Status: Ordered Start: 02-16-2020 take 3 mL by inhalat ion every six hours as needed for wheezing ipratropium-albuteroL (DUO-NEB) 0.5-2.5 mg/3 ml nebulizer Take [...] for wheezing . 1 Inhaler 11 06/04/2018 Suspended atorvastatin 20 mg oral tablet (18 sources) HMG-CoA Reductase Inhibitor Start: 03-24-2017 atorvastatin [...] mometasone furoate 0.2 mg/actuat metered dose inhaler (17 sources) Corticosteroid, beta2-Adrenergic Agonist Start: 10-21-2019 take [...] cg/actuation HFAA furosemide 40 mg oral tablet (18 sources) Loop Diuretic Start: 02-10-2020 furosemide (LA SIX) 40 MG tablet TAKE 1 (ONE) TABLET DAILY NEEDED FOR SWELLING 0 02/10/2020 Active Start: 04-15-2014 End: 10-10-2019 take 1 tablet by mouth once daily furosemide (LASIX) 40 MG tablet Take 40 mg by mouth daily . 0 04/15/2014 10/10/2019 Discontinued glipiZIDE 5 mg oral tablet (8 sources) Sulfonylurea take 1 tablet by mouth twice daily before mealtime glipiZIDE (GLUCOTROL) 5 MG tablet Take 5 mg by mouth 2 (two) times a day before meals . 0 Active ipratropium bromide 0.021 mg/actuat metered dose nasal spray (14 sources) Anticholinergic Start: 12-11-2020 take 2 spray(s) nasal route three times daily ipratropium (ATROVENT) 21 mcg (0.03 %) nasal spray Instill 2 (two) sprays into each nostril 3 (three) times a day Follow-up needed. Please call office to schedule. . 30 mL 3 12/11/2020 Active Start: 03-13-2020 take 2 puff(s) by in halation twice daily Atrovent HFA 17 mcg/actuation inhaler [...] Active isopropyl alcohol 0.7 ml/ml medicated pad (6 sources) Start: 12-19-2019 Alcohol Prep P ads PadM USE 1 PAD DAILY 0 12/19/2019 Active ammonium lactate 120 mg/ml topical lotion (8 sources) Start: 08-11-2019 ammonium lacta te (LAC-HYDRIN) 12 % lotion 3 ml liraglutide 6 mg/ml pen injector (18 sources) GLP-1 Receptor Agonist Start: 03-22-2017 VICTOZA 2-ACOSTA 0.6 mg/0.1 mL (18 mg/3 mL) Pen Inject 1.2 mg under the skin daily . 0 03/22/2017 Active Start: 03-22-2017 VICTOZA 2-ACOSTA 0.6 mg/0.1 mL (18 mg/3 mL) Pen lisinopril 2.5 mg oral tablet (8 sources) Angiotensin Converting Enzyme Inhibitor take 1 tablet by mouth once daily lisinopriL (PRINIVIL,ZESTRIL) 2.5 MG tablet Take 2.5 mg by mouth daily . 0 Active metFORMIN hydrochloride 1000 mg oral tablet (18 sources) Biguanide Start : 08-16 take 1 [...] day(s), # 21 tab(s), Refills(s) 0, Pharmacy: [facility]/pharmacy #[id number], 178, cm, 08/03/21 10:30:00 EDT, Height/Length [...] omeprazole 40 mg delayed release oral capsule (20 sources) Proton Pump Inhibitor Start: 01-21-2018 take [...] 06/22/2018 Active predniSONE 20 mg oral tablet (15 sources) Start: 11-21-2020 predniSONE (DE LTASONE) 20 [...] Start: 10-10-2019 take 4 tablets by mo ut once daily, then take 2 tablets by [...] BY MOUTH EVERY 12 HOURS 1 each 10 08/09/2016 Active Completed/Discontinued Medications Medication Drug Class(es) [...] BY MOUTH TWICE A DAY 60 tablet 10 12/22/2017 06/15/2018 Discontinued Start: 11-25-2016 End: 10-10-2019 [...] Active docusate sodium 50 mg / sennosides, fci 8.6 mg oral tablet (10 sources) Start: 08-16-2016 End: 10-10-2019 senna-docusate (SENNA-S) 8.6-50 mg Take by mouth. 0 08/16/2016 10/10/2019 Discontinued microencapsulated potassium chloride 20 meq extended release oral tablet (20 sources) Start: 04-15-2014 End: 10-10-2019 take 1 [...] disorder] Onset: 11-25-2016 11-25-2016 Chronic Substance-related disorders (5 sources) Cigarette smoker ; Translations: [Nicotine dependence, [...] [Pain, dental] Episodic Other lower respiratory disease (17 sources) Paroxysmal nocturnal dyspnea; Translations: [Dyspnea, unspecified] Onset: 01-23-2018 01-23-2018 Episodic Residual codes; unclassified (6 sources) Tobacco user; Translations: [Tobacco use] Onset: 11-25-2016 Episodic Residual codes; unclassified (1 source) Bilateral lower limb edema; Translations: [Localized edema] Onset: 11-25-2016 11-25-2016 Episodic Substance-related disorders (13 sources) Cigarette smoker ; Translations: [Cigarette Smoker] Onset: 04-01-2017 04-01-2017 Episodic Unclassified (20 sources) Edema of lower extremity; Translations: [Cigarette smoker ] Onset: 11-25-2016 11-25-2016 Episodic Results Test Name Value Interpretation Reference Range Facility Physician Orderon 03-28-2023 Physician Order [id number] #1.00TIFF [facility] Consent for Treatmenton 11-26 Consent for Treatment [id number] #1.00TIFF [facility] Physician Orderon 12-23-2022 Physician Order [id number] 8#1.00TIFF [facility] XR Chest 2 Viewson 3 XR Chest [...] in mGy = . DAP = . [facility] Consent for Treatmenton 07-26 Consent for Treatment [id number] #1.00CD:127 [facility] Physician Orderon 08-16-2022 Physician Order [id number] 1#1.00CD:127 [facility] XR Chest 2 Viewson 3 XR Chest 2 Views Exam Date/Time: 08/16/2022 [...] Brian Barboza MD Transcribed by: ELIZABETH Technologist: TOSHIA Technical Comments Radiation Dose: Ka,r in mGy = na DAP = na Normal [facility] Coding Summary.on 05-30-2022 Coding Summary. CD:[id number] Ww+PGhlYWQ+TQ8CZPRnC 46qbFDikE6yN5NSNNoEH ywgQVBQTElOSyIgbmFtZ G9ovXDgTNDm IC8+AC4yITIoAvceeXYu k3H9nHB3X48nau0tCMsg qCI7QHXqOsYrxzfqp6mv iZl1RQuiMmltHvYo FWQbtT45YJK0tZ47Xg93 lCFmiTNmi1xapXg1NeQx UGCpGXQ4gLveEVyup2Tt CNApB76yzWNbd1R4 IGNvbGxhcHNlOyBlbXB0 xP1lFRkzsnspd8ljdmzm Qzb0sg38xOXhl9C6sWH3 R6MdqrC1CAQqxPLu HsmipCQXdC5ttbfqn9yc mrdeMcYjVPXmTDx5GNb5 DBHzcVycAsFmAQ51RRZ5 AFLeeiDbD1BbAJMo aYneFhA7b4M9En1QK7DR VwngY8VJTBTBESnxqSH+ GI17ap66N8IkQrxvXne9 UDGjGPL7hCZ1nP4y NWWrGMjur6U2iTH3K4Nr jaAwfu7au9nwZMThYBzm K94hpJQuu5S8FAEwhDU2 QUPwnOcmXcJouV17 Oyc+RUUbxDhrk6AhPfow k3ywt8jneSd3FfbtHWZw icUatKvbHRA8c1YxBh0u UCVwoBE7zOU5dD3i MiRzSbZ9LNvoO778NpBi zNZpXbddO62cI8YguHA+ UAQbOqz0RQVdhAyaVZ8m Z3GzQUXgcaxivVMc nKvwLT9gMCOtmxaoTYRp xL0hZOLuI0x8NiWmGuB7 BCrwJ5AsODCyfkxsAg27 eB1fPhUkNjT8HFke Q0TtyqK0TJQpkGFvHCzl DWA9L12tb4G6SRFrCIRu PTE3jZE7uX7khYfprnms bGVmdDsgdmVydGlj TXqpDJgiP332VVCqePgr PkNvZGluZyBEYXRlOiAg MDQvMDYvMjAyMzwvdGQ+ FWTrOYP8hAzoBTMg lPAfUKgkDv7wrMeiaAjl UY6cIDEdhqylYZZquC6a OBCwwRBqrVigVX6jZFFa vtbcg282IdFvYSJ8 EOEpdLRwA5AxzL4cEpOg RBUuFRFlM3OhtVWyIYko N345OHmvLzL3CFPnfzOw N0LsXMSymQsuZyN8 x0I8Gy0Qi7SckajqM3Dt xFEoYhMkGexgCFh5Q3At PjwvdHI+JY86IJDrBZ67 TRh9SAW7jYcuUZoc BTMpN4VayN9kWgZzGYNq ZGRkOyc+PHRhYmxlIHdp ZHRoPScxMDAlJyBzdHls SR0zBo5iUMUxMTUt oBmwmEBaZyTou2uuDHIc LKuhTH9ruWfqU2OczWS7 WZXdh2z1Aw87B73hA5Fs dXA+FTZdfFC6jIR6 eK8cGsZlKlP2KOaoH358 EzXbaUQmNuqfk4ebm1up pPy9YfI8OPDyriNusXpn PMM1q0DjJm12G93k IHdpZHRoPSIxNSUiIHZh sHapuf9qkN6sBo1+PGNv sQD2gFM3tR0kCyMkFcV0 SJuvY765IaKzcBAc Gjflz3vpm0ikyGo9RuNi IEJazpPvrIccUTF2v3Nt Ac36Z2OnxAqaz0UdHfa3 ib67nPRjv3R0cTX1 A0AbFAMcrfkasMNplDij RJ8xRDHtueuvZIPinV4r BFBpW8w7VsShScO1JCxb S8XnplR0ILAseEPy XYGdtASSbT0qpymfn6kb clymLzMmXIWzKGc6MRk7 YOXoaXmjFnUaEDH5UeM5 RRF6eYDqfA2skNig qzdpxC2cEpq+JFB5rKAu uAMSAM9dOohsnOH+PHRk GDA2dCdzUSmgMGHtkX1t NHLdT2w1OvNiMcC4 RBnxA8UauwK6LYJnuGUf PQKoeNWJeH8bnvxva5ej mtvlRrWkENYwJFp3RNf5 LWFsaWduOiBsZWZ0 QiE4PJU6bKPguO9raLyg vltniR8jHnm+QmlydGgg XDH3OUu4U1FtIpb2TEXe gFveZN0djAPuRJpx Pd8deLhjiKumFT4bRJHu trvse256IiWtz5oxXXHh uYXmFKmiCAG2D63xk7E3 NLBhIEJvGXA8jEO1 jL5lsLnlyhgpgHCvnBdz tcUvtObkFTprVDqtP894 DCTujPriHpRnNVb1D9Ii Plv9TSOdzBzjLI0g uEMqCTyjFh6yqWljvYmk TG7jPGRaqcmpv513CrTt d0nyHQQyoOShIBvtUSA7 Q74kx5P9EZJnBBXk SLQ6gML3xL2fiEjvglfh bGVmdDsgdmVydGljYWwt PDshN772LYVgjHxvApNv gAh0W7VcVjq9BCPb dFcjKY1snJMcCCljOe8l bGbfnAkkPG8yACQqcfop s906DrCsj9rsSJNlkGVy YNeaPMY0N29nt2F0 MCQuJNKvAIR6wIU7qZ2j bGlnbjogbGVmdDsgdmVy aIvdBIgwLVzfB893NOHv cDsnPlBhdGllbnQg VNkbFFk2K3QiOemoeQV+ LT14OWCjUM45eUYoaJHo h6coaSw3NoZxLPPuCRD0 nCsmXCdhe8PtRWWk U69joNJjz6R1VZZemAbd lEIzZpKdrIO3vF3sPGvz vsjql2rdxneiUwazl6mj vp00dL70I73lTZzy ZHRoPSIzMCUiIHZhbGln nr1nzD6vCj9+PGNvbCB3 yRV7pB6iSXCpKbG0IFbm H402HtYbxJKrQuej l1met3xryHg7OgM2KXUi vjHvgJoyAWB8t5YyMy51 G01uQSbqQLVfMUUkVYDm AIRjbEamig7ceB5c Ii8+HCOxqMB6zKA5hQ4n SxVbIsV5JCgsT230NwAi uJPgTndnG38bU7AdlNP+ LTDmObg2UJHdyQks XJ1noCBcFQhvNl8lIKB4 UaZhWrJeXYsiS8VxMPKl muifkakhvRW6ETRoLVAo cU50Lf5vcCqsCDPr qIMEmU1tpaacw3gehyve XkUrEFXaYXa2GSg3TTRi vOayQcNqDYN9UnB4BXN3 rNZqnY0wcYwvnyjn mJ6dE7JxYFDdpeszCc42 eA9pHcDaEsP0ADzzOtv+ ClHSEzjJABqfHNMFAP6U VAOwCXjUFP17O1Zw Kmz6HAZptBorTY1ljBQa WCmwIz3lvEqeoQxdOZ0p ZKUewmdwTFEawO4aYIYh sMTfoXmeYU2eRMZo pxwvq278MsHuZKA8RZHe rKExZ0HxyM7tWxQbZAGj XLOmW4GdjJPzGCcvB624 TEdhAiZ0YVTpdwFz X5GzXSAydXntToW8w1D4 Ha9pSO7nPF0pIHdtZR62 DJ01wSMpa2J1kBB1L5Xm ZGRpbmctcmlnaHQ6 NTSwHGWatV33iAHdXXfl Gb8ix2Z6j212AHIoYDXr dY44Xd0uiYbyXVDgmFXJ cY0thlzfv1hboaqj DaFjOFYtHIn0WDp6IRTu aZbyAiRwVBA7MjE8SAC8 bJKcmU6ioWorcizqwI4u Oyc+NTIgWWVhcnM8 G9BtXdc7IFIljCltIW0h fGDfFXekMa6ucNqwzAyx ZI1sPCUxitrdCNXvmS4p YTCsyOQpiVntYH0a UWDgkfrdq459GmVoVRP6 UJXdzCDaN4EmrO4mYkPk KULhRMSwO9KzfYBcVFav S749KBjdPpG3LPRf zaRfT7KnFFXsnMgrBpK5 l8W9Wl4MOPnbVP73VM85 wLMhv7Y8xCV6J1IsZBBd ciujhuctcIQ9JSPa CHQvdN11lXHlCAbwBk3w a8Q2y288LUYjZGOmqN68 Gl3inCdyIHGtzCYLgP6y xybtw8hebzztKoGf RVAjRUf9HEf8OMZflKdi KlHoLGH5OzP5KQJ7wNYw fI1yjFgppqqitU0tRuv+ B1E7yWP2rLXzqMce dGQ+EO65di76K9TgJygd Ppe5KZLxWVA7qPW2uF7l DQWwYQxmw7Y4iPE8W3Cs hiFicn5ga3odAXZi KGdqO70nwKJqc0B1NHLv pUN2DQLytGyeVcCfuV61 Oyc+DIXdmXbyw8AeCjtr v6kvr3yxeTi3PpXo BNMwfnFdjUshAQV5j0Kw Bp98I46nZXyiKNCeUPTn PUFmPZMhxQpdxh6nqU0u Ii8+CGYqnUP2uPP3 dE0hZoTaMhQ6VGkpT086 RsOgrMGaWnllm8arj0op pDr7UzJaAAKlukYzxCjz YUO4g4EzIv42X9Gw hIewj4NuGzz8sj74aNQn k3D4kVA0L6XuPJAfpalb yJLiaBykLP1oBFGubeyl BZYgzI0yTZEvP7u7 YvPxWkF8PSrlN8LnjeS2 BWSxwNVxQGFobQXMmU3l gytrn4opiznrUpGnPJSd REt1CIb4MEFwgRsn WeAvSLV2PiA6HJN5yDLb oV4euLyaqlwqdU6hAkj+ YWi8r8ogiFPbKS1xaZQ1 IL57SA40hZFaq6M5 zPF9J6AwYOQqzvllbtiv vZE6XZIdLLMypA46Ot8i yJmyEz0fYECvJTT5XAIe aUDrS7GdeU7iVfTk ITXqAYPsX2SgrIBjVHqn S488QGcoJmE1LJSibxVu X8DfDWZhtEegSyR7h5K0 Xj1SXX13BF74BP30 jHEjr5Y4fFC7V7PmWWJe lpfkqzqpgNV5LFGfVKMp kN26Hs0aeRaxDd7uDKNt TAM2UTShuQLcK9El mH7kCoVyGHNbWMYaE4Wm rRYvKHgzS467LWqbAoV9 LLNelgXbQ1FiEROhdMwt KhC4f9J3Bx1JPn48 RZ95CB14zMJkj5I0jGM3 R1KtEFYpzvksdjoqqXC7 OHDiBGIpdE93Rq2mwGkv Tp2uBZBrOWV8ATJs qSEaB3SwbF1jGxSgNSVt JQRyA6CquOSjVRgxM609 VJrmUfM6MUCzrbJpK1Md GQLorPxbMkC9m3S9 Sk6HFPsrnbk7F9ZsHmrr dHI+TT76PINnUX35wREx hNUbd5hvzTl4EfPkPXAl JVP2bQdvRAbzy3Un YGWnN81m (more content not included)... Normal [facility] Consent for Treatmenton 04-25 Consent for Treatment [id number] #[id number]:127 Normal [facility] Physician Orderon 05-22-2022 Physician Order [id number] 3#1.00CD:127 Normal [facility] XR Chest 2 Viewson 3 XR Chest [...] mGy = na DAP = na Normal [facility] Coding Summary.on 05-15-2022 Coding Summary. CD:[id number] Gh0bWw+PGhlYWQ+PE1FV LMjG28isWTetA9wN2PUK ElOSywgQVBQTElOSyIgb zMeLJ6auKWbWCZv IC8+BS7tQWEbCighrNCu q2S3hSG2G77lmj7bMOjm gOO3GKUtHeIuiywfm6bk nLe2KDclWbayKdOb CDUjlA40JJT8yG83Xn41 tCIzaHHbl5oeaAd5JqGu MIGvCJC5oLrrKAbvn4Bf XETxB72eaJZmb3M4 IGNvbGxhcHNlOyBlbXB0 wQ5gGAqjyxsay0ogfjqx Mot6rx03qUBmb4R1yZS9 T9XhflQ5OLTpwAGn XhydnVPNoZ2aacfie6jw akobZnPjATOcKJi5ORb2 GQWgjNmnNyAxYO33MGG1 ELSvztDgA8LcQPSe rOzfTpJ4g5G7Es8CL9AF NeykF1QJPJOECBbosWF+ IB26nw72M0NlTcfuQte4 UOTrFDE5gMM0bW6m JICqRFlkr9K8cUB5B1Oq veRryf6gu7rrVASjFJje W67qaSKeh4Q6LYKluAK9 ONRjzXqqStJseT48 Oyc+SJWesLutp3HvKjrx e9yui1wglVu4ElzpUCBh nfDrsPaxYFC1n6XuHf0z QPPzuHH2rEU9gY3n UpEkHqF5JQwzM516KaAo gJPoMozfF33kT4UvtGC+ UPRwNqd9FFCodYlbET2p I1JiHDWaehsmyBQg jVthMS7cKOXddngyKTUt zD4vGHXrO2i3YvUaTqT3 MQmdX2AzKRWotjmcPl79 lL3bBpKtWkA7GKgk V8MaysR1KYOhoCGrBFka ZCQ9U11ie9R9RGHyUJQw RZW2eIL4dP7frNpsejhh bGVmdDsgdmVydGlj XYobCOlwZ400JTChoQrx PkNvZGluZyBEYXRlOiAg MDMvMjIvMjAyMzwvdGQ+ WCCmRJH9kXyoEVQd tVLzYOriOz5hpVjlgEgh AP7lOXFgyrnuDGPtzU5h JDLjsTDxrBbpKA5dJIUs ucgcy094QdBgEJQ8 WYWnhAWwZ6CbeG0oSyMc HWFhRQWyN0SghCVaWIpe U509AQpjJdY3PMSrpcBs A3BfAOXsaTuvMhN2 n3Z2Sb5Wv2VuqrdxI3Yr iLXzCyIqTkelXSc7R0Qn PjwvdHI+RK35DCIqOO38 DKz3NAQ8rFcrYZoc RVMhJ3PtxQ5yDiBsDEFc ZGRkOyc+PHRhYmxlIHdp ZHRoPScxMDAlJyBzdHls EO2rOo1oPBJqMCPp qWtuiGVxFeIru8vpVGYg YYrsTG2hmBfaJ9XiiPK4 KNGjf9b9Ih18E37vL1Fu dXA+CFQnwNO2sTI0 jN1hNhElAlN9YJzsJ210 XqMdxIWnCqmdz7zyb7xa wWn1WpR4AKOxunIucOvt WFG4m8ZoPa34G02b IHdpZHRoPSIxNSUiIHZh jFjbxg3vqE4rIf3+PGNv hJD3lBM5cG7oAaMwEkF8 TTfvM917EeJzaILn Aelfw2ufe5hhnLi9JqTb BTVehbUqrWvfSFH1i9Ab Ur27Y9EvtYimn7IyDkh5 qm37gCTwy9H6yLB3 A8ZgGUZokabwfUIbrFxx UJ3dREWejcciRDEcjQ5u RNRqC0r2UmEzZdJ2DVni C4TaroP5ENNkxIYf FWJvrDALzO7ufzrze4nm iemoOoXjFTSaLXw0CXf0 FEJcqDfaWcBhICM0ByQ5 FZS0jYMdhK1feVyy rzstyT8jDgk+XKS5mNVc mLPZGQ5vLiigyDO+PHRk JRA1dAqcGGnvLOMufM3w XDRwS4t3GcEgUhG2 HGfxA3NmluD9AKJnnDWr CHQsdBHCdH9qledkp0ov chgzKxIyNCTmMYd4GTk7 LWFsaWduOiBsZWZ0 TvE3QWE2vTUygR7jmLoo cgxcnW6eQkg+QmlydGgg EPA2ORp0J9WmEps9ULLx pIegGU5exAGpHWee Vw8cmAcipGbfZZ8sBUQi itbnh487PpHoz0clELXv pYGqJTjlPPJ2S16hk6D5 EJYsSHMfKMY0zEI0 hK9lmUwpjghlsSZumBmz vxNpuObbECzrNGggQ570 WAWsrJgyTuUqUWe3Z1Jy Erk6NLEmbNafXK4b gLAbRIicPp4fcVfbpBnu TJ7kHDVyfdtcn138OiXj g2zxYBIkqWJgRAoiDOQ6 O08ca2Y8BCNyXTFm VOL5cRI5hM8vaWarfzpw bGVmdDsgdmVydGljYWwt COyqG652LPUkqVglAnUo rWd1E0SjHzo7OXLr eInjHE8agIQzWDucLq8g aBbubThrHB6kSLStiimp p907LjSjo7mmNEDooGNc PMmpGHO7P96le0E4 GMFhVWKnHEB5pNA1cP6v bGlnbjogbGVmdDsgdmVy rPktBVkaCSujG704KLWu cDsnPlBhdGllbnQg VCrgZSy5K8TdOqdyiVM+ AO89IJXgLM29lSPkrSXp g0qjxLc8IeAiTAQnKHY5 mUwlMBhta2KmPRZq N43gqQQoz2G7YDBspYmn qDKxGrHbkGP4vZ3pACkh xnmxk7kwenpyKjwwr1ec xk61wY35P58nTVps ZHRoPSIzMCUiIHZhbGln tj9maA6mBe2+PGNvbCB3 jMA7vN0zTBHwUoE3EWvy X636GiWjmYDuUawj x3dub8qryUc3UmM8SMKp jnNitZegTFA4a6LeIr47 X32gUNxeFIDsCLWhFRRx ZNMlsZcbet7vhB0x Ii8+KFEmhUL2qEJ5oY6b EuFpIxA0MVozE044RdWm zSXzVsocV57iA9VqwAA+ SXRqMri6CLPliLdt WI9bxEHqCSvhRs9iBWA2 MyNjRnQwDKnfX7QdZVRa tmfllguloJR7OKMwNCBa qA70Or1zqKgkAHUj sHTKiP0nrwnet6jirknx QaEfJJDsSQc4UGv7DUQo vDolMmZoLES7KnN9DGB1 cGIbxK6hzTpxwkdh uN9yD4RqHSRryhfiQh08 zX1dDkQjAhS1WMcvHnf+ TwKYCewPGWgdXUAHRM0Q SWYpRUuIYK84N6Vi Tik9OSJisQkbFJ6dnUTo CJelYj6xyVlyxRemMI5x PHTidcnaRTNdrO4eNUUo xTIjrWhuSG9wESZm gjqar138UnIlDQG3JBLm uHQnW9HsxM4aZpWmGSVd PVZpB9NhoUSpPXufI697 QLkfKqE2DWFfjtUx G7BzCQHclGujAbA9l3L0 Up8yDR6nVX1zQOspFA96 SQ32cRXcr0X5gFM8K9Hu ZGRpbmctcmlnaHQ6 IHBvZRUplU58hWRaPGon Ye5bf0U9w306YTVwGYZd kW61Gk1wxTolODGeoJKI lP5rnactd9fmziao FyFeXDTuWQr3RVi9ZZYj uNnuOcUqJRW2QqG6CIR9 fMKbsH5ovPhopcyqcF6a Oyc+NTIgWWVhcnM8 F7AnPkc4JPXkmKkhRW2l dAYdPYgmPs2jdDlkcVrt SG4dPQYqokulGSVujS2z HGLtrLIejTmkUK7c DNSbnpfpw482ObUwVJP6 JTJnhYOsC3OrxV6fSvUr QFHzQFTwE5HtsEWoTCuc U725TUozMkV5SKIx wsCrD3YtPQMzgMfyKgY3 q9M6Gg2VKSevKD24OE70 rONtb3R7rOA9G3CsAEWs gagtofiubCU6VZIh LEIioA35vEQfCShjVc3o d3B3r776VTCtLOBniX71 Dj7hxRxxPFMhlOJAjH8n yusbc3lhvqheViWu MKAfRUy5ZUs2HSFjaGxy DcKvXSS0VbA6MQW3lHEo tA2bmDdscnugbH8qEha+ I4L1mQJ2qJFcvXen dGQ+LA91df39Y1UeZwid Yig3DWRkZQZ0jYW1kC1o MTIwPHius3V7lZN7C6Ae apPwbc7bo5ryUWNj FBacV64biYDfx3B9VWPd qPR7VRPndYhiOjKpmV39 Oyc+JNSdgXony1VoEuss t5lbv1uayHm1YfVv VANrwjZflDskBYK9d5Sy Vd72E85jLUepJJJdPQUb AEVtHAHgyEmdmo2gyA5v Ii8+DGIwkKD0pOD7 vP5jYkRbWlC2BNccG539 XzJfeBVwQtenk1tkv6vo fLm3PtNnYQYxkjKjoQrd RVT9h8IqHu56R1Dt rSkjv2WbBby1pt80tQNw e0H7jHB6Z2KvQFLuatji bZVqwSqxLI1mBBPbwosj PQPttN9rWOTdY9c9 RgRaKjN5QWhcY8MxlfD5 QJDbdZHmJYXbkKCSgP7y qxbfc0zxmybzJgQfIKGr HAt3YGw2ESEbkJkb ViCwGHY2NjK2VPS5zHEg bE8ydGyknobiaD0zBcz+ ZXb8t3utyJIjWJ4dcHZ9 TW43FP14bKShp0J8 mAN2U8RhBSUbkscfjjad rHK0LHYoOJQtaL29Qi7i yLcnWh8qNACuABO3ZEUq vCFlL2YpcK1zKoOg QHGcSIYdD2EqtOHfOEhe A608HWqcCnV8BIHkzrQc A1DhKGRcbMcxIsP0o9T8 Jj1XXK91VZ01QE49 sVQyj9C3aUI9I9HqKASh spbryycizYP3UYWpLSMk iR45Pt7kzFotId6yOLVl ZVF8FBDijKAgG2Bv eU4jHcEeTKQiKVQpK6Po sXCwSZxcA285HSpuLkD2 ULHequVlP2SvHSVeeNjo SrC2d8L5Ah3JFf63 AW90FY26yZOxo6O2eRA8 L7ZqCMBrixfzazrljUJ0 BSNpGXXjbH74Jl5mnOtp Cj7xIJJyUKQ8PAGn iVEeO3OywL2vXcSeEOXw SZOfO2MkyBFiENqrM596 ORfcFpK0IMEyftIsP8Ar BOWybNykEaS9i7V1 Lx2KRCionsr9Q4YoRbtm dHI+XX96YBAlIA44bHVc yKEbc6kdvQc0DdJlOONf ACQ2kXqxTHcoo2Ow ZXIt (more content not included)... Normal [facility] Consent for Treatmenton 04-24 Consent for Treatment [id number] #[id number]:[id number] [facility] Physician Orderon 05-06-2022 Physician Order [id number]#[id number]:127 [facility] XR Chest 2 Viewson XR Chest 2 [...] mGy = na DAP = na Normal [facility] POC COVID-19, MOLECULARon SARS-COV-2 (PERES ID) Not Detected Normal Not Detected [facility] Comment on above: Result Comment: This test [...] at the following links: For Healthcare Providers: https://www.CaseR[employer].gov/media/230544/download For Patients: https://www.fda.gov/[employer]/182484/download Performed By: #### P [id number] #### [facility] POCT LAB [address] [place] [address] Rao Pérez, Ph.d. [id number] POC Troponin Ion 10-10-2019 Interpretation and review of laboratory results Normal [facility] Troponin I.cardiac [Mass/Vol] ng/mL <0.05 ng/mL [facility] XR CHEST PA/APon 10-10-2019 XR CHEST PA/AP [...] are clear. IMPRESSION: No acute cardiopulmonary disease. [employer] Workstation ID: [id number] Dictated by: CHACORTA ROCHA on [facility] Oct 09, 2019 11:08:51 PM EDT Transcribed by: WILLIAMS THOMASON on [facility] Oct 09, 2019 11:24:16 PM EDT Finalized by: CHACORTA ROCHA on [facility] 2019 6:06:07 AM EDT [facility] Comment on above: Order Comment: Injur y/Trauma [...] LAFB QRS axis: left T Inversion: aVL CA Interval: 168 QRS Interval: 88 QT Interval: 433 Clinical impression: non-specific ECG [facility] POC CBC and Differentialon 0 10-09-2019 Basophils (Bld) [#/Vol] 0.06 10*3/uL [facility] Basophils/100 WBC (Bld) 0.6 % [facility] Eosinophils (Bld) [#/Vol] 0.17 10*3/uL [facility] Eosinophils/100 WBC (Bld) 1.6 % [facility] Erythrocyte distribution width (RBC) [Entitic vol] 15.2 % High 11.6 - 14.8 % [facility] Hematocrit (Bld) [Volume fraction] 45.8 % 41 - 53 % [facility] Hemoglobin (Bld) [Mass/Vol] 15.3 g/dL 13.5 - 17.5 g/dL [facility] Immature granulocytes (Bld) [#/Vol] 0.07 10*3/uL [facility] Immature granulocytes/100 WBC (Bld) 0.70 % [facility] Comment on above: The IG parameter is the percentage of metamyelocytes, myelocytes and promyelocytes. An immature granulocyte count (IG) of 1% or more suggests the possibility of infection, an IG count of 3% is very likely related to an infection. Interpretation and review of laboratory results Abnormal [facility] Lymphocytes (Bld) [#/Vol] 1.91 10*3/uL [facility] Lymphocytes/100 WBC (Bld) 18.2 % [facility] MCH (RBC) [Entitic mass] 27.8 pg 26 - 34 pg [facility] MCHC (RBC) [Mass/Vol] 33.4 g/dL 31 - 37 g/dL [facility] MCV (RBC) [Entitic vol] 83.1 fL 80 - 100 fL [facility] Monocytes (Bld) [#/Vol] 0.65 10*3/uL [facility] Monocytes/100 WBC (Bld) 6.2 % [facility] Neutrophils (Bld) [#/Vol] 7.65 10*3/uL High [facility] Neutrophils/100 WBC (Bld) 72.7 % [facility] Platelet mean volume (Bld) [Entitic vol] 10.0 fL 9.4 - 12.4 fL [facility] Platelets (Bld) [#/Vol] 166 10*3/uL [facility] RBC (Bld) [#/Vol] 5.51 10*6/uL [facility] ealth WBC (Bld) [#/Vol] 10.51 10*3/uL [facility] POC Covid-19, Molecularon Interpretation and review of laboratory results Normal [facility] SARS-CoV-2 Not Detected Not Detected [facility] Comment on above: This test was perfor med under the FDA's Emergency Use Authorization (EUA). Testing was performed using the [employer] ID NOW COVID-19 assay on the ID NOW platform. This test has not been approved for use in asymptomatic patients and its performance in this patient population has not been evaluated. Negative results do not rule out the presence of SARS-CoV-2/COVID-19. Fact sheets for the EUA can be found at the following links: For Healthcare Providers: https://www.fda.gov/media/621546/download For Patients: https://www.fda.gov/media/855572/download POC Troponin Ion 10-09-2019 Interpretation and review of laboratory results Normal [facility] Troponin I.cardiac [Mass/Vol] ng/mL <0.05 ng/mL [facility] [facility] POC Venous Blood Gases with Full Panelon 10-09-2019 Base excess Calc (BldV) [Moles/Vol] 0.9 mmol/L [facility] Calcium.ionized [Mass/Vol] 4.1 mg/dL Low 4.5 - 5.3 mg/dL [facility] Chloride [Moles/Vol] 101 mmol/L 98 - 108 mmol/L [facility] CO2 (BldV) [Partial pressure] 46.0 mm[Hg] [facility] Creatinine [Mass/Vol] 0.84 mg/dL 0.50 - 1.30 [facility] GFR/1.73 sq M predicted among non-blacks MDRD (S/P/Bld) [Vol rate/Area] The eGFR should be used for monitoring renal function only and not for medication dosing. Specimens collected in a lithium heparin tube may show erroneous pO2, pCO2 and related calculations due to aerobic handling. If the most accurate venous blood gas results are needed, use a heparinized blood gas syringe. [facility] GFR/1.73 sq M.predicted MDRD (S/P/Bld) [Vol rate/Area] 103 mL/min/{1.73_m2} >=60 mL/min/1.73 m2 [facility] Glucose [Mass/Vol] 202 mg/dL High 65 - 99 mg/dL [facility] H[facility]3 (Bld) [Moles/Vol] 26.7 mmol/L 24 - 28 mmol/L [facility] Hematocrit (Bld) [Volume fraction] 46 % 41 - 53 % [facility] Hemoglobin (Bld) [Mass/Vol] 15.5 g/dL 13.5 - 17.5 g/dL [facility] Interpretation and review of laboratory results Abnormal [facility] Lactate [Moles/Vol] 1.6 mmol/L 0.6 - 2 mmol/L [facility] Oxygen (BldV) [Partial pressure] 39 mm[Hg] [facility] Oxygen saturation in Venous blood 71.7 % High 40 - 70 % [facility] pH (BldV) 7.37 [pH] [facility] Potassium [Moles/Vol] 4.1 mmol/L 3.5 - 5.1 mmol/L [facility] Sodium [Moles/Vol] 137 mmol/L 135 - 145 mmol/L [facility] Urea nitrogen [Mass/Vol] 8 mg/dL 8 - 25 mg/dL [facility] Complete PFTon 04-01-2017 DL Adj Pre 19.5 [...] Clinician Facility 08-03-2021 10:25-0400 Blood Pressure Location [facility] 08-03-2021 10:25-0400 Diastolic blood pressure 67 mm[Hg] [facility] 08-03-2021 10:25-0400 Heart rate 87 /min [facility] 08-03-2021 10:25-0400 SaO2% (BldA) [Mass fraction] 95 % [facility] 08-03-2021 10:25-0400 Systolic blood pressure 106 mm[Hg] [facility] 10-10-2019 00:30-0400 Pulse Oximetry 97 % Myah Valle [facility] 10-10-2019 00:15-0400 Pulse (Heart Rate) 92 /[facility] 00:15-0400 Respiratory Rate 20 /min Myah Valle [facility] 10-09-2019 23:32-0400 BP Diastolic 71 mm[Hg] Myah Valle [facility] 10-09-2019 23:32-0400 BP Systolic 133 mm[Hg] Myah Valle [facility] 10-09-2019 22:37-0400 BMI (Body Mass Index) 52.23 kg/m2 Myah Valle [facility] 10-09-2019 22:37-0400 Body Temperature 98.2 [degF] Myah Valle [facility] 10-09-2019 22:37-0400 Body weight 167.83 kg Myahmoise Valle [facility] 10-09-2019 22:37-0400 Height 177.8 cm Myahmoise Valle [facility] 12-10-2018 10:19-0400 BP Diastolic 78 mm[Hg] Angelo Rios [facility] 12-10-2018 10:19-0400 BP Systolic 132 mm[Hg] Angelo Rios [facility] 12-10-2018 10:19-0400 Pulse (Heart Rate) 78 /min [facility] 12-10-2018 10:19-0400 Pulse Oximetry 93 % [facility] Comment on above: ra 12-10-2018 10:19-0400 Respiratory Rate 20 /min [facility] 06-15-2018 11:07-0400 BMI (Body Mass Index) 54.39 kg/m2 Debbie [facility] 06-15-2018 11:07-0400 Body Temperature 97.81 [degF] Debbie Yaneli [facility] 06-15-2018 11:07-0400 Body weight 176.9 kg Debbie Clark [facility] 06-15-2018 11:07-0400 BP Diastolic 77 mm[Hg] Debbie Yaneli [facility] 06-15-2018 11:07-0400 BP Systolic 152 mm[Hg] Debbie Erwin [facility] 06-15-2018 11:07-0400 Height 180.3 cm Debbie Yaneli [facility] 06-15-2018 11:07-0400 Pulse (Heart Rate) 76 /min Debbie Yaneli [facility] 06-15-2018 11:07-0400 Pulse Oximetry 96 % Debbie Clark [facility] 06-15-2018 11:07-0400 Respiratory Rate 16 /min Debbie Yaneli [facility] 06-15-2018 10:19-0400 BMI (Body Mass Index) 55.51 kg/m2 [facility] 06-15-2018 10:19-0400 BP Diastolic 78 mm[Hg] [facility] 06-15-2018 10:19-0400 BP Systolic 136 mm[Hg] [facility] 06-15-2018 10:19-0400 Height 180.3 cm [facility] 06-15-2018 10:19-0400 Pulse (Heart Rate) 74 /min [facility] 06-15-2018 10:19-0400 Weight 180.53 kg [facility] 06-04-2018 09:11-0400 BP Diastolic 72 mm[Hg] [facility] 06-04-2018 09:11-0400 BP Systolic 111 mm[Hg] Angelo Rios [facility] 06-04-2018 09:11-0400 Height 180.3 cm [facility] 06-04-2018 09:11-0400 Pulse (Heart Rate) 75 /min [facility] 06-04-2018 09:11-0400 Pulse Oximetry 95 % [facility] 06-04-2018 09:11-0400 Respiratory Rate 12 /min Angelo Rios [facility] 04-01-2017 09:22-0500 BMI (Body Mass Index) 53 kg/m2 [facility] Work Phone: 04-01-2017 09:22-0500 BP Diastolic 85 mm[Hg] Angelo Rios [facility] Work Phone: 04-01-2017 09:22-0500 BP Systolic 138 mm[Hg] Angelo Rios [facility] Work Phone: 04-01-2017 09:22-0500 Height 180.3 cm Angelo Rios [facility] Work Phone: 04-01-2017 09:22-0500 Pulse (Heart Rate) 75 /min Angelo Rios [facility] Work Phone: 04-01-2017 09:22-0500 Pulse Oximetry 94 % Angelo Rios [facility] Work Phone: 04-01-2017 09:22-0500 Weight 172.37 kg Angelo Rios [facility] Work Phone: 11-25-2016 10:31-0400 BMI (Body Mass Index) 51.6 kg/m2 Angelo Rios [facility] Work Phone: 11-25-2016 10:31-0400 BP Diastolic 68 mm[Hg] Angelo Rios [facility] Work Phone: 11-25-2016 10:31-0400 BP Systolic 126 mm[Hg] Angelo Rios [facility] Work Phone: 11-25-2016 10:31-0400 Height 180.3 cm Angelo Rios [facility] Work Phone: 11-25-2016 10:31-0400 Pulse (Heart Rate) 87 /min Angelo Rios [facility] Work Phone: 11-25-2016 10:31-0400 Pulse Oximetry 95 % Angelo Rios [facility] Work Phone: 11-25-2016 10:31-0400 Respiratory Rate 16 /[facility] 11-25-2016 10:31-0400 Weight 167.83 kg Angelo Rios [facility] Work Phone: Encounters Encounter Date Encounter Type Care Provider Facility Start: 07-31-2023 Documentation procedure Laxmi Perez LPN [facility] Comment on above: Requesting Sleep Edmond dy Start: 12-23-2022 End: 12-24-2022 ambulatory Casey Morse [place] Start: 12-23-2022 End: 12-23-2022 Patient encounter procedure Casey Morse III [facility] Start: 08-16-2022 End: 08-17-2022 ambulatory Franchesca Don Facility:[facility] Start: 08-16-2022 End: 08-16-2022 Patient encounter procedure Franchesca Don [facility] Start: 05-22-2022 End: 05-23-2022 ambulatory Jj C Link Facility:[facility] Start: 05-22-2022 End: 05-22-2022 Patient encounter procedure Jj C Link [facility] Start: 05-06-2022 End: 05-07-2022 ambulatory Jj C Link Facility:[facility] Start: 11-15-2021 End: 03-14-2022 Pre-admission assessment Skiptanika Francodad [facility] Start: 10-03-2021 End: 10-03-2021 Patient encounter procedure Hansa Francodad [facility] Start: 08-03-2021 End: 08-03-2021 Patient encounter procedure Basetanika Francodad [facility] Start: 07-03-2021 End: 07-28-2021 Pre-admission assessment Hansa Candice Francodad [facility] Start: 11-20-2020 Refill Angelo gonzalez MD Work Phone: [facility] Comment on above: Chronic obstructive pulmonary disease with acute exacerbation (HCC) Start: 08-18-2020 End: 08-18-2020 Refill Marianela Orozco LPN [facility] Comment on above: Chronic obstructive pulmonary disease with acute exacerbation (HCC) (Primary Dx) Start: 06-16-2020 End: 06-16-2020 ambulatory ANGELO RIOS [facility] Start: 06-16-2020 End: 06-16-2020 Phys/qhp telephone evaluation 11-20 min Angelo Rios MD Work Phone: [facility] Comment on above: Centrilobular emphys karoline (HCC) (Primary Dx); Obstructive sleep apnea; Tobacco abuse disorder Start: 06-08-2020 ambulatory [facility] Facility[facility] Start: 05-30-2020 ambulatory ANGELO RIOS [facility] Start: 05-18-2020 ambulatory SELF SELF Facility:[facility] Start: 05-18-2020 Patient encounter procedure SELF SELF Facility:[facility] Start: 05-10-2020 End: 05-10-2020 Orders Only Yandy Craft Work Phone: [facility] Start: 03-12-2020 End: 03-12-2020 Refill Angelo Rios Work Phone: [facility] Start: 02-16-2020 End: 02-16-2020 ambulatory AL SOLOMON [facility] Start: 01-19-2020 ambulatory ANGELO RIOS [facility] Amb[facility] Start: 12-28-2019 End: 12-28-2019 Documentation procedure Kim Rust [facility] Comment on above: nebulizer Start: 12-01-2019 End: 12-01-2019 Documentation procedure Kim Rust LPN [facility] Comment on above: tudorza denied Start: 11-30-2019 ambulatory BERNADINE VERMA [facility] Ambulatory Start: 10-21-2019 End: 10-21-2019 ambulatory AL SOLOMON [facility] Start: 10-10-2019 End: 10-10-2019 Patient encounter procedure MYAH TO JAMES [facility] Start: 10-10-2019 End: 10-10-2019 Emergency department patient visit BERNADINE VERMA [facility] Start: 10-09-2019 End: 10-10-2019 Emergency department patient visit Myah Valle Work Phone: [facility] Comment on above: COPD exacerbation (H CC) (Primary Dx); Chest pain, unspecified type Start: 03-11-2019 End: 03-11-2019 Documentation procedure Kim Rust [facility] Comment on above: bipap status Start: 02-26-2019 End: 02-26-2019 Documentation procedure Nga Serrano [facility] Start: 12-10-2018 End: 12-10-2018 Documentation procedure Kim Rust [facility] Comment on above: titration study orde red Start: 12-10-2018 End: 12-10-2018 Office outpatient visit 25 minutes Angelo Rios Work Phone: [facility] Comment on above: Centrilobular emphys karoline (HCC) (Primary Dx); Obstructive sleep apnea; Cigarette Smoker Start: 07-03-2018 End: 07-03-2018 Documentation procedure Davonte Hines [facility] Comment on above: CPAP supplies Start: 06-15-2018 End: 06-15-2018 Emergency department patient visit BERNADINE VERMA [facility] Start: 06-15-2018 End: 06-15-2018 Emergency department patient visit Debbie Erwin Work Phone: [facility] Emergency Department Comment on above: Pain, dental (Primar y Dx) Start: 06-15-2018 End: 06-15-2018 Patient encounter procedure Franky Steward Work Phone: [facility] Comment on above: ERRONEOUS ENCOUNTER- -DISREGARD (Primary Dx) Start: 06-04-2018 End: 06-04-2018 Office outpatient visit 25 minutes Angelo Rios Work Phone: [facility] Comment on above: Centrilobular emphys karoline (HCC) (Primary Dx); Obstructive sleep apnea; Tobacco abuse disorder Start: 04-01-2017 Office/outpatient vi sit, est, level 4 Angelo Rios Work Phone: [facility] Start: 04-01-2017 End: 04-01-2017 Ambulatory Angelo Rios Work Phone: [facility] Start: 11-25-2016 Office/outpatient vi sit, est, level 5 Angelo Rios Work Phone: [facility] Start: 09-11-2016 Ambulatory [facility] Procedures Date Procedure Procedure Detail Performing Clinician Start: 10-10-2019 Assay of troponin quantitative Myah To James Work Phone: Start: 10-09-2019 POC COVID-19, MOLECULAR Myah To James Work Phone: Start: 10-09-2019 12 lead ECG Myah del valle James Work Phone: Start: 10-09-2019 Assay of troponin quantitative Myah To James Work Phone: Start: 10-09-2019 Radiologic exam ches t single view Myah To James Work Phone: Start: 10-09-2019 Assay of urea nitrog en quantitative Myah To James Work Phone: Start: 10-09-2019 Blood count complete auto&auto difrntl wbc Myah To James Work Phone: Start: 09-24-2019 Microalbumin [Mass/v olume] in Urine by Test strip Kim Rust Start: 08-26-2017 Ophthalmic examinati on and evaluation Angelo Rios MD Work Phone: Start: 04-01-2017 End: 04-01-2017 COMPLETE PFT Angelo Rios Work Phone: Plan of Treatment Date Care Activity Detail Author Start: 10-26-2023 Influenza vaccination Influenza Vaccine (Season Ended) [facility] Start: 10-25-2022 COVID-19 Vaccine ( season) COVID-19 Vaccine ( season) [facility] Start: 10-25-2020 Influenza vaccination Sequential Influenza Vaccine (#1) [facility] Start: 09-23-2020 Albumin DL <= 20 mg/L (U) [Mass/Vol] Urine Microalbumin [facility] Start: 09-23-2020 Microalbumin measurement, urine, quantitative Urine Microalbumin [facility] Start: 09-23-2020 Urine screening for protein Urine Microalbumin [facility] Start: 09-18-2020 End: 09-18-2020 Patient encounter procedure 09/18/2020 Office Visit Pulmonology Al Solomon, [employer] MA[employer] [address] [place] [address] [phone] [facility] Start: 08-15-2020 Hemoglobin A1c measurement A1C [facility] Start: 06-16-2020 End: 06-16-2020 Office Visit 06/16/2020 Office Visit Pulmonology Angelo Rios MD [address] [place] [address] [phone] [facility] Start: 04-11-2020 HbA1c (Bld) [Mass fraction] A1C [facility] Start: 04-11-2020 Hemoglobin A1c measurement A1C [facility] Start: 02-16-2020 End: 02-16-2020 Telemedicine 02/16/2020 Telemedicine Pulmonology Al Solomon, [employer] MANAGER [address] [place] [address] [facility] Start: 10-26-2019 Influenza vaccination Sequential Influenza Vaccine (#1) [facility] Start: 10-26-2019 Influenza vaccination given Sequential Influenza Vaccine (#1) [facility] Start: 10-21-2019 End: 10-21-2019 Office Visit 10/21/2019 Office Visit Pulmonology Al Solomon, [employer] MANAGER [address] [facility] [address] [place] [address] [phone] [facility] Start: 10-12-2019 Administration of herpes zoster vaccine Zoster Vaccines (1 of 2) [facility] Start: 10-12-2019 Screening for malignant neoplasm of colon [facility] Start: 06-17-2019 End: 06-17-2019 Office Visit 06/17/2019 Office Visit Pulmonology Angelo Rios MD [address] [facility] [address] [place] [address] [phone] [facility] Start: 12-10-2018 End: 12-10-2018 Office Visit 12/10/2018 Office Visit Pulmonology Angelo Rios MD [address] [facility] [address] [place] [address] [phone] [facility] Start: 10-25-2018 Influenza vaccination given [facility] Start: 08-26-2018 Glaucoma screening Diabetic Eye Exam [facility] Start: 08-26-2018 Ophthalmic examination and evaluation Ophthalmology Exam [facility] Start: 06-30-2018 End: 06-30-2018 Treatment 06/30/2018 Treatment Cardiac Rehabilitation Felisha Cisneros MD [address] [facility] [address] [place] [address] [phone] [facility] Start: 06-15-2018 End: 06-15-2018 Office Visit 06/15/2018 Office Visit Cardiology Franky Steward MD [address] [facility] [address] [place] [address] [phone] [facility] Start: 10-25-2017 Influenza vaccination given SEQUENTIAL INFLUENZA VACCINE (#1) [facility] Start: 08-06-2017 Ambulatory 08/06/2017 Office Visit Pulmonology Angelo Rios MD [address] [facility] [address] [place] [address] [phone] [facility] Start: 04-01-2017 Ambulatory 04/01/2017 Office Visit Pulmonology Angelo Rios MD [address] [place] [address] [phone] [facility] Start: 10-25-2016 Influenza vaccination SEQUENTIAL INFLUENZA VACCINE (#1) [facility] Work Phone: Start: 11-17-2014 Low dose computed tomography of chest without contrast Low-dose CT Lung Cancer Screen [facility] Start: 11-17-2014 Screening for malignant neoplasm of lung Low-dose CT Lung Cancer Screen [facility] Start: 10-12-1987 Hepatitis C antibody, confirmatory test Hepatitis C Screening [facility] Start: 10-12-1987 Hepatitis C screening Hepatitis C Screening [facility] Start: 1985 COVID-19 Vaccine (1 of 2) COVID-19 Vaccine (1 of 2) [facility] Start: 1984 HIV screening HIV Screening [facility] Start: 1981 Adolescent depression screening assessment Depression Screening (PHQ9) [facility] Start: 1981 Depression screening using PHQ-9 (Patient Health Questionnaire 9) score [facility] Start: 10-12-1979 Diabetic foot examination [facility] Start: 10-12-1979 Microalbumin measurement, urine, quantitative Urine Microalbumin [facility] Start: 10-12-1979 Ophthalmic examination and evaluation Ophthalmology Exam [facility] Start: 10-12-1975 Pneumococcal Vaccine: Ped or At-Risk (1 of 2 - PCV) Pneumococcal Vaccine: Ped or At-Risk (1 of 2 - PCV) [facility] Start: 10-12-1975 Pneumococcal Vaccine: Ped or At-Risk (1 of 2 - PPSV23) Pneumococcal Vaccine: Ped or At-Risk (1 of 2 - PPSV23) [facility] Start: 1972 History and physical examination, annual for health maintenance Wellness Visit [facility] Start: 1969 Prostate specific antigen measurement PSA Level [facility] Start: 1969 Screening for malignant neoplasm of colon [facility] Start: 1969 Tetanus vaccination [facility] End: 11-25-2017 Complete PFT Complete PFT Routine Centrilobular emphysema (HCC) 1 Occurrences starting 11/25/2016 until 11/25/2017 [facility] Work Phone: XR Chest 1 View XR Chest 1 View Imaging KEITH 10/09/2019 11:00 PM EDT [facility] Immunizations Immunization Date Immunization Notes Care Provider Marv martini 12-12-2019 influenza virus vacc ine, unspecified formulation Laxmi Perez LPN [facility] Payers Date Payer Category Payer Medicaid [id number] 2018 Medicaid [place] [id number] 2018-Present [phone] [address] [place] [address] [id number] 2018 Medicare MEDICARE MEDICAR E PART A & B xxxxxxxxxxx 2018-Present [place] xxxxxxxxxxx [id number] 2018 Medicare [id number] 2018 Medicare [id number] 2018 Medicare MEDICARE MEDICAR E PART A & B [id number] 2018-Present [phone] CGS [id number] PART A CLAIMS [address] [address] [place] [address] [id number] 2013 Medicaid [id number] 2013 Medicaid [id number] 1969 Unknown [id number] 1969 Unknown [id number] [id number] 1969 Unknown [id number] [id number] 1969 Unknown [id number] [id number] 1969 Unknown [id number] [id number] 1969 Unknown [id number] [id number] 1969 Unknown [id number] [id number] 1969 Unknown [id number] [id number] 1969 Unknown [id number] [id number] 1969 Unknown [id number] [id number] 1969 Unknown [id number] [id number] 1969 Unknown [id number] [id number] 1969 Unknown [id number] [id number] 1969 Unknown [id number] [id number] 1969 Unknown [id number] Social History Date Type Detail Facility Start: 11-25-2016 End: 06-16-2020 Tobacco smoking status SCIS Current every day smoker [facility] Start: 1970 Sex Assigned At Not on file [facility] Work Phone: Start: 06-15-2018 End: 06-16-2020 Cigarettes smoked current (pack per day) - Reported [facility] Start: 12-10-2018 End: 06-16-2020 Alcohol intake Current non-drinker of alcohol (finding) [facility] Start: 10-10-2019 End: 06-16-2020 Tobacco use and exposure Never used [facility] Exposure to SARS-CoV -2 (event) Yes [facility] Exposure to SARS-CoV -2 (event) Unable to assess [facility] Start: 06-16-2020 Sex Assigned At Male [facility] Start: 08-03-2021 Tobacco smoking status Heavy tobacco smoker (finding) [facility] Tobacco smoking status Never [facility] History of tobacco use Cigarette [facility] Start: 01-23-2018 Gender identity Identifies as male gender (finding) [facility] Start: 01-23-2018 Sexual orientation Heterosexual (finding) [facility] Medical Equipment Procedure Code Equipment Code Equipment Origin al Text Equipment Identifier Dates USE 1 NEEDLE ONC E DAILY [id number] Start: 01-17-2020 daily as directed . [id number] Start : 12-27-2019 Clinical Notes 12-01-2019 to 07-31-2023 Laxmi Perez LPN - 07/31/2023 9:06 AM EDTTelephone Encounter - Marianela Orozco LPN - 08/18/2020 12:12 PM EDTTelephone Encounter - Marianela Orozco LPN - 08/18/2020 11:04 AM EDT Note Date & Type Note Facility 07-31-2023 History of Presen t illness Narrative Authorization for IAN fax rec'v from [facility] requesting a copy of sleep study result with patient signature. SS result faxed at [phone]. documented in this encounter [facility] 07-27-2021 Hospital Discharg e instructions Follow Up Care 07/27/2021 11:50:22 With:Ragini SALINAS, Hansa Harvey, PUL, SHAJI Address: [address] [place] [address] Pulmonary Clinic (Heart & Vascular) [place] [address]- When: Unknown Comments:after his testing is completed [facility] 08-18-2020 Miscellaneous Notes Patient returned call having [...] him. He verbalized appreciation and understanding. Let [facility] for patient to return call regarding fax received from [facility] for a refill on his Prednisone taper. documented in this encounter [facility] 06-16-2020 History of Presen t illness Narrative Telephone Visit Via Phone Call Patient ID: Ector Rutledge is a 49 y.o. male on the phone for COPD Patient phone : [phone] This visit has been fully reviewed with the patient and verbal consent has been obtained. Dear Dr. Bernadine Verma MD, I had the pleasure of seeing our mutual patient, Ector Rutledge, who returns to see me in my clinic at [facility]. IMPRESSION/RECOMMENDATIONS 1. Mr. Rutledge is a pleasant 49 y.o. male with [...] and has residual AHI of 1.2. His Milan Sleepiness Scale is 6/24 and overall he [...] of presenting illness As you know, Mr. Rutledge is a pleasant 49 y.o. male with [...] He uses a full-face mask for interface. [place] Sleepiness Scale is 9/24. He continues to [...] mentioned above. PFT Results PFT Pre-bronchodilator 04/01/17 0916 FVC [...] normal EF This note was dictated using Ancanco/ Dictation Software and may contain errors that were not corrected during editing. Provider [facility] [address] [facility] [address] Patient location: [address] [facility] [address] I have spent 11-20 minutes with the [...] Angelo Rios MD documented in this encounter [facility] 12-01-2019 History of Presen t illness Narrative Insurance denied the tudorza until patient tries atrovent. Informed patient Dr. Rios placed an order for the atrovent today. Asked patient to try it and let us know how it is working for him. He verbalizes understanding documented in this encounter [facility] Evaluation + Plan note Future Appointments Appointment Date:08/03/2021 10:15:00 AM Scheduled Provider:Ragini SALINAS, Skip Candice Location:FT.Pulmonary Clinic Appointment Type:Pulmonary New Patient (FT) [facility] Evaluation + Plan note Future Appointments Appointment Date:08/20/2021 07:30:00 AM Scheduled Provider: Location:FT.CARDIO Appointment Type:PUL Pulmonary Function Test (FT) Appointment Date:08/20/2021 08:30:00 AM Scheduled Provider: Location:FT.CARDIO Appointment Type:PUL Six Minute Walk Test (FT) [facility] Evaluation note Diagnosis Centrilobular emphysema (HCC)- Primary Obstructive sleep apnea Obstructive sleep apnea (adult) (pediatric) Tobacco abuse disorder [facility] Diagnosis Chronic obstructive pulmonary disease with acute exacerbation (HCC)- Primary [facility] Diagnosis Chronic obstructive pulmonary disease with acute exacerbation (HCC) documented in this [facility] Narrative No data available for this section [facility] No data available for this section [facility] No data available for this section [facility] Assessments Diagnosis Centrilobular emphysema (HCC ) - [...] No Family History Records Found Advance Directives Documents on File Type Date Recorded 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 Expl anation Advance Directives and Livin g Will 06/15/2018 11:51 AM Advance Directives and Livin g Will 06/15/2018 8:23 AM Documents on File Type Date Recorded 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 documented in this encounter* Davonte Hines MA - 07/03/2018 3:00 PM EDT CPAP supply order faxed to [facility], per patient request. F: [phone] Confirmation received. documented in this encounter* Angelo Rios MD - 12/10/2018 10:[address] Bernadine Verma MD, I had the pleasure of seeing our mutual patient, Ector Rutledge, who returns to see me in my clinic at [facility]. IMPRESSION/RECOMMENDATIONS 1. Mr. Rutledge is a pleasant 48-year-old male with moderate [...] of presenting illness As you know, Mr. Rutledge is a pleasant 48-year-old male with COPD [...] He uses a full-face mask for interface. Milan Sleepiness Scale is 9/24. He continues to [...] history of COPD (chronic obstructive pulmonary disease) ([facility]), Diabetes mellitus ([facility]), GERD (gastroesophageal reflux disease), and Hyperlipidemia. He [...] normal EF This note was dictated using Ancanco/ [employer]ion [employer] Software and may contain errors that were not corrected during editing. documented in this encounter* Kim Rust LPN - 12/10/2018 1:57 PM EDT Order faxed to [employer] for titration study documented in this encounter* Kim Rust LPN - 03/11/2019 8:39 AM EST Received fax from Roger from [facility] that he spoke with patient on 03/03/19 [...] pleasure of seeing our mutual patient, Ector Rutledge, who returns to see me in my clinic at [facility]. IMPRESSION/RECOMMENDATIONS 1. Mr. Rutledge is a pleasant 47-year-old male with moderate [...] of presenting illness As you know, Mr. Rutledge is a pleasant 47-year-old male with COPD [...] and uses a full-face mask for interface. Milan Sleepiness Scale is 8/24. He continues to [...] history of COPD (chronic obstructive pulmonary disease) ([facility]), Diabetes mellitus ([facility]), GERD (gastroesophageal reflux disease), and Hyperlipidemia. He [...] normal EF This note was dictated using Anc[employer]/ Dictation Software and may contain errors that were not corrected during editing. in this encounter* Kim Rust LPN - 12/28/2019 9:49 AM EST Patient left a vm that he dropped his nebulizer machine and it broke and he would like a rx for a new one. [facility] I [facility] Sheila at [facility] and she will call patient. She states she can exchange it. documented in this encounter Discharge Instructions * Attachments The following attachments cannot be sent through Care Everywhere. * Chest Pain (Kyrgyz) * Chronic Health Conditions: Conserving Energy (Kyrgyz) * COPD: Asthma (Kyrgyz) documented in this encounter* Instructions* Debbie Erwin MD - 06/15/2018 Dental Clinics We recommend that you follow-up with the dentist as soon as possible (KEITH). If you do not have one, here are some options: [facility] [phone] [facility] [phone] [address] [facility] (Dental Clinic) [phone] [address] [facility] [address] By appointment only. $40 standard fee - adjustable per household income [facility] [phone] [facility] [address] [facility] [phone] [address] [facility] [phone] [address] [place], [place] [address] [facility] [phone] [facility] ALL Insurances [facility] [phone] [address] [place] [address] [facility] [phone] [address] [place] [address] [facility] [phone] [place] [address] [facility] Family Practice [phone] [facility] [phone] Will take walk-in patients during certain hours of the day. [phone] [facility] Will take walk-in patients during certain hours of the day. * Attachments The following attachments cannot be sent through Care Everywhere. * Periodontal Conditions (Kyrgyz) * Smoking Cessation: Health Benefits: General Info (Kyrgyz) documented in this encounter Reason for Referral Status Reason Specialty Diagnoses / Procedures Referre d By Contact Referred To Contact Closed Angelo Rios MD [address] [facility] [address] [place] [address] Additional Source Comments (unrecognized sect ion and content) No Status Records FoundNo Status Records FoundNo Status Records FoundNo Status Records FoundNo Status Records FoundNo Status Records FoundNo Status Records Found INFORMATION SOURCE (unrecogn ized section and content) DATE CREATED AUTHOR 08/20/2017 [facility] DATE CREATED AUTHOR AUTHOR'S ORGANIZ ATION 06/15/2018 [facility] DATE CREATED AUTHOR AUTHOR'S ORGANIZ ATION 10/21/2019 [facility] DATE CREATED AUTHOR AUTHOR'S ORGANIZ ATION 05/19/2020 [facility] DATE CREATED AUTHOR AUTHOR'S ORGANIZ ATION 06/18/2020 [facility] DATE CREATED AUTHOR AUTHOR'S ORGANIZ ATION 04/13/2021 [facility] DATE CREATED AUTHOR AUTHOR'S ORGANIZ ATION 03/30/2023 [facility] Reason for Visit (unrecogniz ed section and content) Reason Comments Follow-up Error Reason Comments CPAP supplies Reason Comments Follow-up COPD Sleep Apnea needs new cpap machi ne has new insurance to medicare was told [...] Reason Onset Date Comments tudorza denied 12/01/2019 Reason Onset Date Comments Requesting Sleep Study 07/31/2023 Kayla Mcarthur RN - 10/10/2019 3:32 AM Kayla Wharton RN - 10/10/2019 3:31 AM Viviana Oneill - 10/09/2019 11:47 PM EDTMyah Valle MD - 10/09/2019 11:33 PM EDT ED Notes (unrecognized secti on and content) Pt sent to [facility], room 641 B with all their belongings (i.e shoes, clothes, wallet, symbicort inhaler). All questions/concerns were answered/addressed for EMS. EMS was sent with pt packet consisting of transfer paperwork and location. EMS denies any further questions/concerns at this time. Pt and/or pt family member denies any further questions/concerns at this time. Pt sent via [facility] at this time. Pt sent with [...] presents with Chest Pain COPD HPI: Mr Rutledge is a 48-year-old male who presents the [...] and depending on findings possible transfer to [facility] later. At first he does not wish [...] file Gets together: Not on file Attends hindu service: Not on file Active member of club or organization: Not on file Attends meetings of clubs or organizations: Not on file Relationship status: Not on file Other Topics Concern Not on file Social History Narrative Not on file Social history reviewed. Allergies: No Known Allergies Medications: Ector uRtledge Home Medication Instructions Prior to Surgery NEISHA:[id number] Printed on:10/10/19 0320 Medication Information Take last [...] kg (370 lb) MEDICAL DECISION MAKING: Mr Rutledge, update: COPD exacerbation: Patient had stated he [...] placement, I felt he was appropriate for [facility]. Speaking to transfer center they attempted to get him to [facility] short stay unit. Speak with the provider at the short stay we both do not feel he is appropriate for there. Therefore he was then accepted back to [facility] for proper placement, safe observation admission and [...] View Preliminary Result No acute cardiopulmonary disease. [employer] Workstation ID: [id number] MEDICATIONS ORDERED/GIVEN (if any, during ED visit): Medications ipratropium-albuteroL (DUO-NEB) 0.5-2.5 mg/3 ml nebulizer solution 3 mL (3 mL Inhalation Given 10/09/19 8389) sodium chloride (PF) (NS) flush 5 mL (has no administration in time range) And sodium chloride 0.9% (NS) (has no administration in time range) methylPREDNISolone sod suc(PF) (SOLU-medrol) Injection 125 mg (125 mg Intravenous Given 10/09/192258) aspirin chewable tablet 324 mg (324 mg Oral Given 10/09/192258) The laboratory secretary of Health and Human Services and Chris Street, governor of the [facility], have declared a state of public [...] in the day. documented in this encounter [facility] ED Attending Note: NAME: Ector Rutledge 47 y.o. CSN: [id number] PCP: Bernadine Verma MD History: Chief Complaint: [...] side. He had an appointment with his inside barrel polisher who sent him down here for further [...] suspicion for deep space neck infection, RPA, PROFESSOR OF SOCIOLOGY, epiglottitis, Jason's angina based on today's evaluation. [...] I consider the discharge disposition reasonable. Ector James De La CruzMaty (or their surrogate) and I have discussed [...] LAFB QRS axis: left T Inversion: aVL CA Interval: 168 QRS Interval: 88 QT Interval: 433 Clinical impression: non-specific ECG documented in this encounter Care Teams (unrecognized sec tion and content) Varnish Maker Helper Relationship Specialty Start Date End Date Bernadine Verma MD [address] [place] [address] PCP - General Internal Medicine 06/17/14 Al Solomon, HELPDESK MANAGER [address] [place] [address] Nurse Practitioner Pulmonology 10/21/19 Varnish Maker Helper Relationship Specialty Start Date End Date Bernadine Verma MD PCP - General Internal Medicine 06/17/14 Al Solomon HELPDESK MANAGER [address] [place] [address] Nurse Practitioner Pulmonology 10/21/19 FOR RECORDS PERTAINING [...] BE BASED ON THE PRIMARY CLINICAL RECORDS. [employer] [facility]. provides no warranty or guarantee of the accuracy or completeness of information in this document.
--- NOTE | 2023-08-02 19:43 | CT_ITS ---
[address] [address] Patient Name: FRANKO GUERIN MRN: [id number] date: 1970 Sex: M Assigned Patient Location: ER Current Patient Location: ED.MAIN Accession/Order Number: [id number] Exam Date: 08/02/2023 20:33 Report Date: 08/02/2023 22:33 At the request of: BARBY CRISTOBAL Procedure: CT abdomen pelvis w con EXAM: CT abdomen pelvis w con HISTORY: Diarrhea, bloating , abdominal pain, diarrhea, and bloating for 2 weeks. COMPARISON: CT chest 07/28/2023 TECHNIQUE: Multiple axial views CT abdomen pelvis performed after administration 100 cc Omnipaque 300 IV contrast. Coronal sagittal reformats performed. FINDINGS: Visualized lung bases demonstrate persistent irregular soft tissue thickening/consolidation at the right posterior lower lobe as seen on prior CT 07/28/2023. Visualized cardiac apex is unremarkable. Moderate hepatic steatosis. Hepatosplenomegaly. Spleen measures 15 cm craniocaudal length and right hepatic lobe measures 19 cm craniocaudal length. Gallbladder, pancreas, adrenal glands, appendix, urinary bladder, and other pelvic structures are unremarkable. Prostate measures 3.3 cm transverse diameter. Multiple bilateral low density renal cystic structures measuring up to 2.8 cm at the left mid kidney. There is slight internal density within the bilateral renal masses. Mild amount of mixed liquid stool and gas scattered throughout the colonic lumen. Minimal colonic diverticula without pericolonic inflammatory stranding. Small hiatal hernia. Mild amount of fluid within a nondistended stomach lumen. No perigastric extraluminal free fluid/free air. No evidence for small bowel obstruction, pneumatosis, or pneumoperitoneum. 8.3 x 7.5 cm fat-containing left periumbilical hernia without bowel protrusion. Mild amount of atherosclerotic calcifications at the abdominal aorta and bilateral iliac arteries. A 3.2 x 1.5 cm portal caval lymph node (image 50 series 3). Multilevel thoracolumbar disc degeneration throughout the visualized levels with disc bulges/herniations and facet arthropathy greatest at T10-T11, L4-L5, and L5-S1 with at least moderate if not severe spinal canal stenoses at these levels. Otherwise, no acute bony or normality. CT/CT abdomen pelvis w con IMPRESSION: 1. Mild amount of mixed liquid stool and gas scattered throughout the colonic lumen, likely reflecting known diarrhea. Minimal colonic diverticula without pericolonic inflammatory stranding. 2. Persistent irregular soft tissue thickening/lung consolidation at the right posterior lower lobe as seen on prior CT 07/28/2023. As previously indicated on prior CT, further investigation recommended. 3. Multiple bilateral low density renal cystic structures measuring up to 2.8 cm at the left mid kidney. There is slight internal density within the bilateral renal masses which make it difficult to differentiate proteinaceous renal cysts versus cystic neoplasms on current CT exam. Recommend nonemergency ultrasound kidney and/or MRI renal mass protocol to further evaluate. 4. An abnormally enlarged 3.2 x 1.5 cm portal caval lymph node. 5. Moderate hepatic steatosis. Hepatosplenomegaly. 6. Multilevel thoracolumbar disc degeneration throughout the visualized levels with disc bulges/herniations and facet arthropathy greatest at T10-T11, L4-L5, and L5-S1 and with at least moderate if not severe spinal canal stenoses at these levels. Electronically authenticated by: GILMER MCKEON Date: 08/02/2023 22:33
--- NOTE | 2023-08-02 19:50 | ED_ITS ---
Documented by User: DONNA Gross 08/02/23 22:26 HPI HPI - General Adult General Chief complaint: Abdominal Pain Stated complaint: sulpher burps, diarrhea, bloating Time Seen by Provider: 08/02/23 19:35 Source: patient Mode of arrival: walk-in Limitations: no limitations History of Present Illness HPI narrative: Patient is a 52-year-old male who presents to the emergency department for several week history of intermittent bloating feeling to the abdomen associated with liquid stool/diarrhea. He started Ozempic on 07/18/2023. He has had no fevers, vomiting. He states he is belching with a foul taste. He denies urinary symptoms. No medications taken prior to arrival for symptoms. He has not followed up with his PCP. Related Data Home Medications ?Medication ?Instructions ?Recorded ?Confirmed albuterol sulfate 90 mcg/actuation 2 puff inhalation Q4H PRN 08/02/23 08/02/23 aerosol inhaler (Ventolin HFA) shortness of breath or wheezing atorvastatin 20 mg tablet 20 mg PO DAILY 08/02/23 08/02/23 budesonide 160 mcg-glycopyr 9 2 inh inhalation DAILY PRN 08/02/23 08/02/23 mcg-formot 4.8 mcg/actuation HFA shortness of breath inhaler (Breztri Aerosphere) fluticasone propionate 50 1 spray intranasal Q12H 08/02/23 08/02/23 mcg/actuation nasal spray,suspension glipizide 10 mg tablet 10 mg PO DAILY 08/02/23 08/02/23 guaifenesin 1,200 mg tablet, 1,200 mg PO BID 08/02/23 08/02/23 extended release 12 hr (Mucus Relief ER) lisinopril 5 mg tablet 5 mg PO DAILY 08/02/23 08/02/23 metformin 1,000 mg tablet 1,000 mg PO BID 08/02/23 08/02/23 montelukast 10 mg tablet 10 mg PO DAILY 08/02/23 08/02/23 omeprazole 40 mg capsule,delayed 40 mg PO DAILY 08/02/23 08/02/23 release semaglutide 1 mg/dose (4 mg/3 mL) 1 mg subcut .1xweek 08/02/23 08/02/23 subcutaneous pen injector (Ozempic) Previous Rx's ?Medication ?Instructions ?Recorded dicyclomine 20 mg tablet 20 mg PO QID PRN abdominal pain 08/02/23 #12 tabs ondansetron 4 mg disintegrating 4 mg PO Q6H PRN nausea and 08/02/23 tablet vomiting #12 tabs pantoprazole 40 mg tablet,delayed 40 mg PO DAILY #7 tabs 08/02/23 release (Protonix) Allergies Allergy/AdvReac Type Severity Reaction Status Date / Time No Known Drug Allergies Allergy Verified 08/02/23 19:42 Opioid HPI Opioid Management Most Recent Opioid Data: No Data to Display Review of Systems ROS Constitutional Denies: fever or chills Ears, nose, mouth, and throat Denies: throat pain or nasal congestion Respiratory Denies: shortness of breath or cough Gastrointestinal Reports: abdominal pain, nausea, diarrhea, bloating and belching; Denies: vomiting or constipation Genitourinary Denies: painful urination Musculoskeletal Denies: back pain or neck pain Integumentary/Breast Denies: rash Neurological Denies: headache Hematologic/Lymphatic Denies: easy bruising or easy bleeding Exam Narrative Exam Narrative: Gen.: Awake, alert, in no distress Head: Normocephalic, atraumatic ENT: Moist mucous membranes Respiratory: No respiratory distress, lungs clear bilaterally Cardio: Regular rate and rhythm Gastrointestinal: Abdomen is soft, Obese. Nontender to palpation, no rigidity or guarding. Soft and reducible umbilical hernia noted Extremities: Moves extremities equally, no injuries noted Psych: Normal mood and affect Neuro: No focal neuro deficit Skin: Warm, dry, intact Constitutional Vital Signs, click to edit/add: Last Vital Signs Temp 98.1 F 08/02/23 19:39 Pulse 96 H 08/02/23 22:23 Resp 22 H 08/02/23 21:10 BP 130/79 08/02/23 22:23 Pulse Ox 93 L 08/02/23 19:56 O2 Del Method Room Air 08/02/23 19:39 Course Vital Signs Vital signs: Vital Signs Temperature 98.1 F 08/02/23 19:39 Pulse Rate 89 08/02/23 19:39 Respiratory Rate 18 08/02/23 19:39 Blood Pressure 167/89 H 08/02/23 19:39 Pulse Oximetry 94 L 08/02/23 19:39 Oxygen Delivery Method Room Air 08/02/23 19:39 Temperature 98.1 F 08/02/23 19:39 Pulse Rate 96 H 08/02/23 22:23 Respiratory Rate 22 H 08/02/23 21:10 Blood Pressure 130/79 08/02/23 22:23 Pulse Oximetry 93 L 08/02/23 19:56 Oxygen Delivery Method Room Air 08/02/23 19:39 Medical Decision Making MDM Narrative Medical decision making narrative: 2224: Patient medicated with IV fluids, Zofran, GI cocktail. He was given additional Bentyl for cramping. Lab studies are unremarkable and the patient was sent for CT of the abdomen and pelvis. EKG is unremarkable, CT is pending. Case turned over to attending physician at this time Medical Records Medical records reviewed: Yes I reviewed the patient's medical records Lab Data Lab results reviewed: Yes I reviewed the patient's lab results Labs: Lab Results 08/02/23 08/02/23 Range/Units 19:55 21:05 WBC 12.2 H (4.0-11.0) 10^3/uL RBC 5.48 (4.70-6.10) 10^6/uL Hgb 14.9 (14.0-18.0) g/dL Hct 44.6 (42.0-54.0) % MCV 81.4 (80.0-94.0) fL MCH 27.2 (25.9-34.0) pg MCHC 33.4 (29.9-35.2) g/dL RDW 15.4 H (11.0-15.0) % Plt Count 195 (150-450) 10^3/uL MPV 10.0 (9.5-13.5) fL Neut % (Auto) 77.5 H (43.0-75.0) % Lymph % (Auto) 14.6 L (20.5-60.0) % [place] % (Auto) 5.6 (1.7-12.0) % Eos % (Auto) 1.2 (0.9-7.0) % Baso % (Auto) 0.5 (0.2-2.0) % Neut # (Auto) 9.4 H (1.4-6.5) 10^3/uL Lymph # (Auto) 1.8 (1.2-3.8) 10^3/uL [place] # (Auto) 0.7 (0.3-0.8) 10^3/uL Eos # (Auto) 0.1 (0.0-0.7) 10^3/uL Baso # (Auto) 0.1 (0.0-0.1) 10^3/uL Abs Immat Gran (auto) 0.07 H (0.00-0.03) 10^3/uL Imm/Tot Granulo (auto) 0.6 H (0.0-0.5) % Sodium 139 (136-145) mmol/L Potassium 3.3 L (3.5-5.1) mmol/L Chloride 101 (98-107) mmol/L Carbon Dioxide 27.9 (21.0-32.0) mmol/L Anion Gap 13.4 BUN 9.0 (7.0-18.0) mg/dL Creatinine 0.88 (0.70-1.30) mg/dL Est GFR ( Amer) >60 (>=60) Est GFR (Non-Af Amer) >60 (>=60) BUN/Creatinine Ratio 10.2 Glucose 122 H (74-106) mg/dL Lactate 1.4 (0.4-2.0) mmol/L Calcium 8.7 (8.5-10.1) mg/dL Total Bilirubin 1.0 (0.2-1.0) mg/dL AST 12 L (15-37) U/L ALT 26 (16-63) U/L Alkaline Phosphatase 70 (46-116) U/L Troponin I High Sens 6.5 (4.0-76.1) pg/mL Total Protein 7.6 (6.4-8.2) g/dL Albumin 3.8 (3.4-5.0) g/dL Globulin 3.8 g/dL Albumin/Globulin Ratio 1.0 Lipase 19.0 (16.0-77.0) U/L Urine Color Yellow (YELLOW) Urine Clarity Clear (CLEAR) Urine pH 6.0 (5.0-9.0) Ur Specific [place] 1.025 (1.005-1.025) Urine Protein Negative (NEG/TRACE) mg/dL Urine Glucose (UA) Negative (NEGATIVE) mg/dL Urine Ketones Negative (NEGATIVE) mg/dL Urine Occult Blood Negative (NEGATIVE) Urine Nitrite Negative (NEGATIVE) Urine Bilirubin Negative (NEGATIVE) Urine Urobilinogen 0.2 (0.2-1.0) EU/dL Ur Leukocyte Esterase Negative (NEGATIVE) Ethanol Quant <3 mg/dL Imaging Data CT scan - abdomen: Radiologist's impression: ITS Impressions Abdomen/Pelvis CT 08/02/23 19:43 IMPRESSION: 1. Mild amount of mixed liquid stool and gas scattered throughout the colonic lumen, likely reflecting known diarrhea. Minimal colonic diverticula without pericolonic inflammatory stranding. 2. Persistent irregular soft tissue thickening/lung consolidation at the right posterior lower lobe as seen on prior CT 07/28/2023. As previously indicated on prior CT, further investigation recommended. 3. Multiple bilateral low density renal cystic structures measuring up to 2.8 cm at the left mid kidney. There is slight internal density within the bilateral renal masses which make it difficult to differentiate proteinaceous renal cysts versus cystic neoplasms on current CT exam. Recommend nonemergency ultrasound kidney and/or MRI renal mass protocol to further evaluate. 4. An abnormally enlarged 3.2 x 1.5 cm portal caval lymph node. 5. Moderate hepatic steatosis. Hepatosplenomegaly. 6. Multilevel thoracolumbar disc degeneration throughout the visualized levels with disc bulges/herniations and facet arthropathy greatest at T10-T11, L4-L5, and L5-S1 and with at least moderate if not severe spinal canal stenoses at these levels. Electronically authenticated by: GILMER MCKEON Date: 08/02/2023 22:33 ECG Data Attestation: I personally reviewed and interpreted this ECG as follows: (Normal sinus rhythm at a rate of 80, no acute ST elevation or ectopy. EKG reviewed by attending physician) Discharge Plan Discharge Stand Alone Forms: Portal Instructions Chief Complaint: Abdominal Pain Clinical Impression: Gastroenteritis Patient Disposition: Home, Self-Care Time of Disposition Decision: 22:42 Condition: Good Mode of Transportation: Private Vehicle Prescriptions / Home Meds: New dicyclomine 20 mg tablet 20 mg PO QID PRN (Reason: abdominal pain) Qty: 12 0RF pantoprazole [Protonix] 40 mg tablet,delayed release (DR/EC) 40 mg PO DAILY Qty: 7 0RF ondansetron 4 mg tablet,disintegrating 4 mg PO Q6H PRN (Reason: nausea and vomiting) Qty: 12 0RF No Action albuterol sulfate [Ventolin HFA] 90 mcg/actuation HFA aerosol inhaler 2 puff INHALATION Q4H PRN (Reason: shortness of breath or wheezing) atorvastatin 20 mg tablet 20 mg PO DAILY Breztri Aerosphere 160-9-4.8 mcg/actuation HFA aerosol inhaler 2 inh INHALATION DAILY PRN (Reason: shortness of breath ) fluticasone propionate 50 mcg/actuation spray,suspension 1 spray INTRANASAL Q12H glipizide 10 mg tablet 10 mg PO DAILY guaifenesin [Mucus Relief ER] 1,200 mg tablet extended release 12hr 1,200 mg PO BID lisinopril 5 mg tablet 5 mg PO DAILY metformin 1,000 mg tablet 1,000 mg PO BID montelukast 10 mg tablet 10 mg PO DAILY omeprazole 40 mg capsule,delayed release(DR/EC) 40 mg PO DAILY Ozempic 1 mg/dose (4 mg/3 mL) pen injector 1 mg SUBCUT .1xweek Print Language: [place] Referrals: Physician,Non-Staff, [Physician] - 1 week Documented by User: Matteo Gray MD 08/02/23 22:43 HPI HPI - General Adult General Chief complaint: Abdominal Pain Stated complaint: sulpher burps, diarrhea, bloating Time Seen by Provider: 08/02/23 19:35 Related Data Home Medications ?Medication ?Instructions ?Recorded ?Confirmed albuterol sulfate 90 mcg/actuation 2 puff inhalation Q4H PRN 08/02/23 08/02/23 aerosol inhaler (Ventolin HFA) shortness of breath or wheezing atorvastatin 20 mg tablet 20 mg PO DAILY 08/02/23 08/02/23 budesonide 160 mcg-glycopyr 9 2 inh inhalation DAILY PRN 08/02/23 08/02/23 mcg-formot 4.8 mcg/actuation HFA shortness of breath inhaler (Breztri Aerosphere) fluticasone propionate 50 1 spray intranasal Q12H 08/02/23 08/02/23 mcg/actuation nasal spray,suspension glipizide 10 mg tablet 10 mg PO DAILY 08/02/23 08/02/23 guaifenesin 1,200 mg tablet, 1,200 mg PO BID 08/02/23 08/02/23 extended release 12 hr (Mucus Relief ER) lisinopril 5 mg tablet 5 mg PO DAILY 08/02/23 08/02/23 metformin 1,000 mg tablet 1,000 mg PO BID 08/02/23 08/02/23 montelukast 10 mg tablet 10 mg PO DAILY 08/02/23 08/02/23 omeprazole 40 mg capsule,delayed 40 mg PO DAILY 08/02/23 08/02/23 release semaglutide 1 mg/dose (4 mg/3 mL) 1 mg subcut .1xweek 08/02/23 08/02/23 subcutaneous pen injector (Ozempic) Previous Rx's ?Medication ?Instructions ?Recorded dicyclomine 20 mg tablet 20 mg PO QID PRN abdominal pain 08/02/23 #12 tabs ondansetron 4 mg disintegrating 4 mg PO Q6H PRN nausea and 08/02/23 tablet vomiting #12 tabs pantoprazole 40 mg tablet,delayed 40 mg PO DAILY #7 tabs 08/02/23 release (Protonix) Allergies Allergy/AdvReac Type Severity Reaction Status Date / Time No Known Drug Allergies Allergy Verified 08/02/23 19:42 Opioid HPI Opioid Management Most Recent Opioid Data: No Data to Display Exam Constitutional Vital Signs, click to edit/add: Last Vital Signs Temp 98.1 F 08/02/23 19:39 Pulse 96 H 08/02/23 22:23 Resp 22 H 08/02/23 21:10 BP 130/79 08/02/23 22:23 Pulse Ox 93 L 08/02/23 19:56 O2 Del Method Room Air 08/02/23 19:39 Course Vital Signs Vital signs: Vital Signs Temperature 98.1 F 08/02/23 19:39 Pulse Rate 89 08/02/23 19:39 Respiratory Rate 18 08/02/23 19:39 Blood Pressure 167/89 H 08/02/23 19:39 Pulse Oximetry 94 L 08/02/23 19:39 Oxygen Delivery Method Room Air 08/02/23 19:39 Temperature 98.1 F 08/02/23 19:39 Pulse Rate 96 H 08/02/23 22:23 Respiratory Rate 22 H 08/02/23 21:10 Blood Pressure 130/79 08/02/23 22:23 Pulse Oximetry 93 L 08/02/23 19:56 Oxygen Delivery Method Room Air 08/02/23 19:39 Medical Decision Making MDM Narrative Medical decision making narrative: 2224: Patient medicated with IV fluids, Zofran, GI cocktail. He was given additional Bentyl for cramping. Lab studies are unremarkable and the patient was sent for CT of the abdomen and pelvis. EKG is unremarkable, CT is pending. Case turned over to attending physician at this time. JK 10:40 PM. CAT scan resulted and discussed with the patient. Liquid stool noted in colon. Cysts also present in the kidney and the patient was informed. He is able to be discharged home. Treatment diagnosis and follow-up were discussed with the patient. Differential Diagnosis Differential Diagnosis: Gastroenteritis, bowel obstruction, dehydration, diverticulitis Lab Data Lab results reviewed: Yes I reviewed the patient's lab results Labs: Lab Results 08/02/23 08/02/23 Range/Units 19:55 21:05 WBC 12.2 H (4.0-11.0) 10^3/uL RBC 5.48 (4.70-6.10) 10^6/uL Hgb 14.9 (14.0-18.0) g/dL Hct 44.6 (42.0-54.0) % MCV 81.4 (80.0-94.0) fL MCH 27.2 (25.9-34.0) pg MCHC 33.4 (29.9-35.2) g/dL RDW 15.4 H (11.0-15.0) % Plt Count 195 (150-450) 10^3/uL MPV 10.0 (9.5-13.5) fL Neut % (Auto) 77.5 H (43.0-75.0) % Lymph % (Auto) 14.6 L (20.5-60.0) % [place] % (Auto) 5.6 (1.7-12.0) % Eos % (Auto) 1.2 (0.9-7.0) % Baso % (Auto) 0.5 (0.2-2.0) % Neut # (Auto) 9.4 H (1.4-6.5) 10^3/uL Lymph # (Auto) 1.8 (1.2-3.8) 10^3/uL [place] # (Auto) 0.7 (0.3-0.8) 10^3/uL Eos # (Auto) 0.1 (0.0-0.7) 10^3/uL Baso # (Auto) 0.1 (0.0-0.1) 10^3/uL Abs Immat Gran (auto) 0.07 H (0.00-0.03) 10^3/uL Imm/Tot Granulo (auto) 0.6 H (0.0-0.5) % Sodium 139 (136-145) mmol/L Potassium 3.3 L (3.5-5.1) mmol/L Chloride 101 (98-107) mmol/L Carbon Dioxide 27.9 (21.0-32.0) mmol/L Anion Gap 13.4 BUN 9.0 (7.0-18.0) mg/dL Creatinine 0.88 (0.70-1.30) mg/dL Est GFR ( Amer) >60 (>=60) Est GFR (Non-Af Amer) >60 (>=60) BUN/Creatinine Ratio 10.2 Glucose 122 H (74-106) mg/dL Lactate 1.4 (0.4-2.0) mmol/L Calcium 8.7 (8.5-10.1) mg/dL Total Bilirubin 1.0 (0.2-1.0) mg/dL AST 12 L (15-37) U/L ALT 26 (16-63) U/L Alkaline Phosphatase 70 (46-116) U/L Troponin I High Sens 6.5 (4.0-76.1) pg/mL Total Protein 7.6 (6.4-8.2) g/dL Albumin 3.8 (3.4-5.0) g/dL Globulin 3.8 g/dL Albumin/Globulin Ratio 1.0 Lipase 19.0 (16.0-77.0) U/L Urine Color Yellow (YELLOW) Urine Clarity Clear (CLEAR) Urine pH 6.0 (5.0-9.0) Ur Specific [place] 1.025 (1.005-1.025) Urine Protein Negative (NEG/TRACE) mg/dL Urine Glucose (UA) Negative (NEGATIVE) mg/dL Urine Ketones Negative (NEGATIVE) mg/dL Urine Occult Blood Negative (NEGATIVE) Urine Nitrite Negative (NEGATIVE) Urine Bilirubin Negative (NEGATIVE) Urine Urobilinogen 0.2 (0.2-1.0) EU/dL Ur Leukocyte Esterase Negative (NEGATIVE) Ethanol Quant <3 mg/dL Imaging Data CT scan - abdomen: Radiologist's impression: ITS Impressions Abdomen/Pelvis CT 08/02/23 19:43 IMPRESSION: 1. Mild amount of mixed liquid stool and gas scattered throughout the colonic lumen, likely reflecting known diarrhea. Minimal colonic diverticula without pericolonic inflammatory stranding. 2. Persistent irregular soft tissue thickening/lung consolidation at the right posterior lower lobe as seen on prior CT 07/28/2023. As previously indicated on prior CT, further investigation recommended. 3. Multiple bilateral low density renal cystic structures measuring up to 2.8 cm at the left mid kidney. There is slight internal density within the bilateral renal masses which make it difficult to differentiate proteinaceous renal cysts versus cystic neoplasms on current CT exam. Recommend nonemergency ultrasound kidney and/or MRI renal mass protocol to further evaluate. 4. An abnormally enlarged 3.2 x 1.5 cm portal caval lymph node. 5. Moderate hepatic steatosis. Hepatosplenomegaly. 6. Multilevel thoracolumbar disc degeneration throughout the visualized levels with disc bulges/herniations and facet arthropathy greatest at T10-T11, L4-L5, and L5-S1 and with at least moderate if not severe spinal canal stenoses at these levels. Electronically authenticated by: GILMER MCKEON Date: 08/02/2023 22:33 Discharge Plan Discharge Stand Alone Forms: Portal Instructions Chief Complaint: Abdominal Pain Clinical Impression: Gastroenteritis Patient Disposition: Home, Self-Care Time of Disposition Decision: 22:42 Condition: Good Mode of Transportation: Private Vehicle Prescriptions / Home Meds: New dicyclomine 20 mg tablet 20 mg PO QID PRN (Reason: abdominal pain) Qty: 12 0RF pantoprazole [Protonix] 40 mg tablet,delayed release (DR/EC) 40 mg PO DAILY Qty: 7 0RF ondansetron 4 mg tablet,disintegrating 4 mg PO Q6H PRN (Reason: nausea and vomiting) Qty: 12 0RF No Action albuterol sulfate [Ventolin HFA] 90 mcg/actuation HFA aerosol inhaler 2 puff INHALATION Q4H PRN (Reason: shortness of breath or wheezing) atorvastatin 20 mg tablet 20 mg PO DAILY Breztri Aerosphere 160-9-4.8 mcg/actuation HFA aerosol inhaler 2 inh INHALATION DAILY PRN (Reason: shortness of breath ) fluticasone propionate 50 mcg/actuation spray,suspension 1 spray INTRANASAL Q12H glipizide 10 mg tablet 10 mg PO DAILY guaifenesin [Mucus Relief ER] 1,200 mg tablet extended release 12hr 1,200 mg PO BID lisinopril 5 mg tablet 5 mg PO DAILY metformin 1,000 mg tablet 1,000 mg PO BID montelukast 10 mg tablet 10 mg PO DAILY omeprazole 40 mg capsule,delayed release(DR/EC) 40 mg PO DAILY Ozempic 1 mg/dose (4 mg/3 mL) pen injector 1 mg SUBCUT .1xweek Print Language: [place] Referrals: Physician,Non-Staff, MD [Physician] - 1 week
--- NOTE | 2023-08-02 19:51 | ECG_ITS ---
[facility] Test Date: 2023-08-02 Pat Name: FRANKO GUERIN Department: Room: - Gender: Male [employer]: : 1970 Requested By: [id number] Order Number: [id number] Reading MD: ALICIA LAWTON Measurements Intervals [place] Rate: 80 P: 35 MA: 164 QRS: -56 QRSD: 96 T: 47 QT: 370 QTc: 406 Interpretive Statements 1100 Sinus rhythm 2630 Left anterior fascicular block 8003 Consistent with pulmonary disease Low voltage across the precordium 9150 abnormal ECG No previous ECG available for comparison Electronically Signed On 08-03-2023 6:36:15 EDT by ALICIA LAWTON
[2023-08-02 20:06] LABS: Basophils Absolute Auto 0.1 10^3/uL (0.0-0.1); Basophils Percent Auto 0.5 % (0.2-2.0); Eosinophils Absolute Auto 0.1 10^3/uL (0.0-0.7); Eosinophils Percent Auto 1.2 % (0.9-7.0); Hematocrit 44.6 % (42.0-54.0); Hemoglobin 14.9 g/dL (14.0-18.0); Immature Granulocytes Abs Auto 0.07 10^3/uL (0.00-0.03); Immature Granulocytes Pct Auto 0.6 % (0.0-0.5); Lymphocytes Absolute Auto 1.8 10^3/uL (1.2-3.8); Lymphocytes Percent Auto 14.6 % (20.5-60.0); Mean Corpuscular HGB Conc 33.4 g/dL (29.9-35.2); Mean Corpuscular Hemoglobin 27.2 pg (25.9-34.0); Mean Corpuscular Volume 81.4 fL (80.0-94.0); Monocytes Absolute Auto 0.7 10^3/uL (0.3-0.8); Monocytes Percent Auto 5.6 % (1.7-12.0); Neutrophils Absolute Auto 9.4 10^3/uL (1.4-6.5); Neutrophils Percent Auto 77.5 % (43.0-75.0); Platelet Count 195 10^3/uL (150-450); Red Blood Count 5.48 10^6/uL (4.70-6.10); Red Cell Distribution Width 15.4 % (11.0-15.0); White Blood Count 12.2 10^3/uL (4.0-11.0)
[2023-08-02] MEDS: 0.9 % SODIUM CHLORIDE 1,000 ML 1000 ML IV (20:08)
[2023-08-02] MEDS: ONDANSETRON PF 4 MG/2 ML VIAL IV (20:08)
[2023-08-02] MEDS: lidocaine HCL 15 ML, MAG HYDROX/ALUMINUM HYD/SIMETH 30 ML, HYOSCYAMINE SULFATE 0.25 MG PO (20:08)
[2023-08-02 20:23] LABS: Lactate/Lactic Acid 1.4 mmol/L (0.4-2.0)
[2023-08-02 20:29] LABS: Ethanol <3 mg/dL
[2023-08-02 20:32] LABS: Alanine Aminotransferase 26 U/L (16-63); Albumin Level 3.8 g/dL (3.4-5.0); Alkaline Phosphatase 70 U/L (46-116); Anion Gap 13.4; Aspartate Amino Transferase 12 U/L (15-37); BUN Creatinine Ratio 10.2; Calcium 8.7 mg/dL (8.5-10.1); Carbon Dioxide 27.9 mmol/L (21.0-32.0); Chloride 101 mmol/L (98-107); Estimated GFR (African America >60 (>=60); Estimated GFR (Non-African Ame >60 (>=60); Globulin 3.8 g/dL; Glucose 122 mg/dL (74-106); Potassium 3.3 mmol/L (3.5-5.1); Sodium 139 mmol/L (136-145); Total Protein 7.6 g/dL (6.4-8.2); Troponin I High Sensitivity 6.5 pg/mL (4.0-76.1)
[2023-08-02 21:19] LABS: Bilirubin Urine NEGATIVE (NEGATIVE); Blood Urine NEGATIVE (NEGATIVE); Clarity Urine CLEAR (CLEAR); Color Urine YELLOW (YELLOW); Glucose Urine UA NEGATIVE (NEGATIVE); Ketones Urine NEGATIVE (NEGATIVE); Leukocyte Esterase Urine NEGATIVE (NEGATIVE); Nitrite Urine NEGATIVE (NEGATIVE); Protein Urine NEGATIVE (NEG/TRACE); Specific Gravity Urine 1.025 (1.005-1.025); Urobilinogen Urine 0.2 EU/dL (0.2-1.0)
[2023-08-02 21:20] LABS: Urine Microscopic Indicated NO
[2023-08-02] MEDS: DICYCLOMINE HCL 10 MG CAPSULE 20 MG PO (22:21)
== END 2023-08-02 22:59 | disposition home or self-care (01) ==
PROVIDERS: Physician Assistant; Emergency Provider Emergency Medicine; PCP Nurse Practitioner Family
DX: K52.9 Noninfective gastroenteritis and colitis, unspecified (principal); E66.9 Obesity, unspecified; Z68.43 Body mass index [BMI] 50.0-59.9, adult
CPT/HCPCS: 36415; 74177; 80053; 80320; 81003; 83605; 83690; 84484; 85025; 93005; 96361; 96374; 99285; Q9967

== ENCOUNTER 2023-08-11 14:20 | Outpatient (OUT) | payer MEDICARE, MEDICAID, SELFPAY ==
--- NOTE | 2023-08-11 15:46 | PE_ITS ---
[address] [address] Patient Name: FRANKO GUERIN MRN: [id number] date: 1970 Sex: M Assigned Patient Location: CT Current Patient Location: Accession/Order Number: [id number] Exam Date: 08/11/2023 15:34 Report Date: 08/12/2023 10:39 At the request of: JAC MATTHEW Procedure: PET skull to mid thigh NUCLEAR MEDICINE PET/CT HISTORY: Solitary pulmonary nodule. COMPARISON: CT chest 07/28/2023. METHOD: 16.79 mCi of F-18 FDG was administered intravenously. Blood sugar level at the time of the injection: 116. At 54 minutes from injection, PET images were obtained from the skull base through the midthigh levels in the axial plane. Reformatted images were performed in the sagittal and coronal planes. A low-dose, noncontrast CT scan was performed for attenuation correction and anatomical localization. A low dose, noncontrast and nondiagnostic CT scan was performed for attenuation correction and anatomic localization. Mediastinal blood pool SUV max 2.6 using the patient's body weight as the normalization method. FINDINGS: HEAD AND NECK: There are no metabolically active lymph nodes in the neck. CHEST: There are no metabolically active mediastinal, hilar, or axillary lymph nodes. The major airways are patent. There is no pericardial effusion. There is no evidence of abnormal metabolic uptake in the esophagus. There is no evidence of abnormal metabolic uptake in the lung parenchyma. There is bibasilar atelectasis. There are no metabolically active pulmonary nodules. There are no pleural effusions. There is no pneumothorax. ABDOMEN AND PELVIS: There is no evidence of abnormal metabolic activity in the liver or adrenal glands. There is no evidence of abnormal metabolic active lymph nodes in the abdomen or pelvis. There is no free fluid. There is physiologic uptake in the urinary system and bowel. There is a left renal cyst. There is focal physiologic uptake in the right lower quadrant, favor activity in the right ureter. MUSCULOSKELETAL: There is no evidence of abnormal metabolically active bony lesions. PET/PET skull to mid thigh IMPRESSION: No evidence of metabolically active tumor. Bibasilar atelectasis. Electronically authenticated by: JAVIER RED Date: 08/12/2023 10:39
== END 2023-08-11 14:21 | disposition home or self-care (01) ==
PROVIDERS: PCP Nurse Practitioner Family; Visit Provider Internal Medicine
DX: R91.8 Other nonspecific abnormal finding of lung field (principal)
CPT/HCPCS: 78815; A9552

== ENCOUNTER 2024-02-06 07:56 | Outpatient (OUT) | payer MEDICARE, MEDICAID, SELFPAY ==
--- NOTE | 2024-02-06 07:59 | CT_ITS ---
[address] [address] Patient Name: FRANKO GUERIN MRN: [id number] date: 1970 Sex: M Assigned Patient Location: CT Current Patient Location: Accession/Order Number: [id number] Exam Date: 02/06/2024 08:01 Report Date: 02/09/2024 12:54 At the request of: JAC MATTHEW Procedure: CT chest wo con EXAMINATION: CT chest wo con HISTORY: Right lower lobe lung mass R91.8 COMPARISON: 08/11/2023, 07/28/2023 TECHNIQUE: Multi-planar CT images were created with IV contrast. Axial, Coronal, and Sagittal images. Dose reduction techniques were achieved by using automated exposure control and/or adjustment of mA and/or kV according to patient size and/or use of iterative reconstruction technique. FINDINGS: LUNGS: Again demonstrated are patchy linear opacities throughout both lungs most significant in the medial basilar segment of the right lower lobe, unchanged. No new parenchymal infiltrate nodule or mass is identified PLEURA: No pneumothorax or new pleural effusion VASCULATURE: No abnormality. WILFREDO: No mass or adenopathy. MEDIASTINUM: No mass or adenopathy. CARDIAC: No enlargement or pericardial effusion Coronary arteries: Moderate calcifications AORTA: No aortic aneurysm CHEST WALL: No mass or axillary adenopathy. BONES: No bone lesion or fracture. LIMITED ABDOMEN: No suspicious findings. Limited images of the upper abdomen. OTHER: Negative. CT/CT chest wo con IMPRESSION: Stable patchy and linear opacities most significant in the right lower lobe Electronically authenticated by: NO BURLESON Date: 02/09/2024 12:54
--- OUTSIDE RECORDS SUMMARY | 2024-02-06 08:01 | XMS_ITS | CCD ---
Author Organization [facility] CliniSy[facility] Care Team Providers Care Air Traffic Instructor Name Role Phone Verma, Bernadine Unavailable PALMER, DREMA DAVONTE Unavailable Unavailab le PALMER, DREMA DAVONTE Unavailable Unavailab le VERMA, BERNADINE Unavailable Unavailable Verma, Bernadine Primary Care Provider [phone] VERMA, BERNADINE Primary Care Unavailable DEBBIE ERWIN Attending Unavailabl e Verma, Bernadine Primary Care Provider Angelo Rios Unavailable VERMA, BERNADINE Primary Care Unavailable MYAH VALLE Attending Unav ailable MYAH VALLE Admitting Unav ailable MYAH VALLE Referring Unav ailable VERMA, BERNADINE Primary Care Unavailable CECI GTZ Admitting Unavailable QUIN REYNA Attending Unavaila ble Verma, Bernadine Primary Care Provider [phone] Al Solomon Unavailable SELF, SELF Referring Unavailable DORA VILLAGOMEZ [...] Unavailabl e VERMA, BERNADINE Primary Care Unavailable Jarett SALINAS, [facility] Primary Care Provider Jean-Paul MENDIETAAl Unavailable Jarett SALINAS, Bernadine Primary Care Provider Jean-Paul GAYATRIAl Unavailable Al Solomon CNP Unavailable [phone] Jarett SALINAS, [facility] Primary Care Provider [phone] Clemlarawilfredo MENDIETAAl Unavailable [phone] SELF, SELF Referring Unavailable DORA VILLAGOMEZ Attending Unavailable BERNADINE VERMA Primary Care Unavailable DORA VILLAGOMEZ Referring Unavailable KIKI CHILDRESS Primary Care Physician Jj Stevens Primary Care Physician [phone] Jj Stevens Admitting Unavailable Jj Stevens Attending Unavailable Jj Stevens Admitting Unavailable Jj Stevens Attending Unavailable Franchesca Don Admitting Unavailable Franchesca Don Attending Unavailable Casey Morse Attending Unavailable Casey Morse Admitting Unavailable Jarett SALINAS, [facility] Primary Care Provider [phone] Jean-Paul GAYATRIAl Unavailable Medications Current Medications Medication Drug Class(es) [...] EVERY 12 HOURS 1 each 08/09/2016 Active [id number] 200 actuat albuterol 0.09 mg/actuat metered dose inhaler (20 sources) beta2-Adrenergic Agonist Start: 08-18-2023 take 1 puff(s) by inhalation every four hours Albuterol Sulfate (Ventolin Hfa) 90 mcg/actuation HFA aerosol inhaler Active 2 PUFF INHALATION Every 4 hours August 18, 2023 12:00am Start: 06-04-2018 take 2 puff(s) by in [...] hours as needed for wheezing. Active albuterol 90 mcg/actuation inhaler (4 sources) [...] 06/04/2018 Suspended atorvastatin 20 mg oral tablet (20 sources) HMG-CoA Reductase Inhibitor Start: 08-18-2023 take 20 mg by mouth once daily Atorvastatin Active 20 MG PO Daily August 18, 2023 12:00am Start: 03-24-2017 atorvastatin ( LIPITOR) 20 MG tablet azithromycin 250 mg oral tablet (2 sources) Macrolide Antimicrobial Start: 11-24-2019 azithr omycin (Zithromax) 250 MG tablet Take 2 pills on day 1, and then 1 pill a day for 4 days. . 6 tablet 0 11/24/2019 Active Fhmtcijkyf-Jnghpqht-J ormoterol (Breztri Aerosphere) 160-9-4.8 mcg/actuation HFA aerosol inhaler (2 sources) Start: 08-25-2023 Budesonide-Gly copyr-F ormoterol (Breztri Aerosphere) 160-9-4.8 mcg/actuation HFA aerosol inhaler Active 2 INH INHALATION Twice daily 5.9 30 August 25, 2023 9:28am fluticasone propionate 0.05 mg/actuat metered dose nasal spray (14 sources) Corticosteroid Start: 08-18-2023 Fluticasone Propionate Active 2 SPRAY INTRANASAL Daily August 18, 2023 12:00am Start: 06-04-2018 End: 06-04-2019 take 2 spray(s) nasal route once daily fluticasone propionate (FLONASE) 50 mcg/actuation nasal spray Instill 2 (two) sprays into each nostril daily . 16 g 12 06/04/2018 Active Fluticasone 500 McG-Salmeterol 50 McG/Dose Blistr Powdr For Inhalation (3 sources) Corticosteroid, beta2-Adrenergic Agonist fluticasone-salmeter ol (ADVAIR DISKUS) 500-50 mcg/dose diskus inhaler Inhale 1 puff 2 (two) times a day. Active 60 actuat formoterol fumarate 0.005 mg/actuat / mometasone furoate 0.2 mg/actuat metered dose inhaler (17 sources) Corticosteroid, beta2-Adrenergic Agonist Start : 10-20 take 2 puff(s) by inhalation twice daily mometasone-formoterol (Dulera) 200-5 mcg/actuation HFAA Inhale 2 (two) puffs (400 mcg total) 2 (two) times a day Rinse and spit after use . 1 Inhaler 10/21/2019 Active Start: 11-27-2017 End: 06-04-2018 take 2 puff(s) by inhalation twice daily DULERA 200-5 mcg/actuation HFAA Inhale 2 (two) puffs (400 mcg total) 2 (two) times a day . 1 Inhaler 06/04/2018 Active Start: 03-22-2017 DULERA 200-5 m [...] daily . 0 04/15/2014 10/10/2019 Discontinued glipiZIDE 10 mg oral tablet (11 sources) Sulfonylurea Start: 08-18-2023 take 10 mg by mouth twice daily Glipizide Active 10 MG PO Twice daily August 18, 2023 12:00am take 1 tablet by alvaro th twice daily before mealtime glipiZIDE (GLUCOTROL) 5 MG tablet Take 5 mg by mouth 2 (two) times a day before meals . 0 Active isopropyl alcohol 0.7 ml/ml medicated pad (6 sources) Start: 12-19-2019 Alcohol Prep P ads PadM USE 1 PAD DAILY 0 12/19/2019 Active ammonium lactate 120 mg/ml topical lotion (8 sources) Start: 08-11-2019 ammonium lacta te (LAC-HYDRIN) 12 % lotion 3 ml liraglutide 6 mg/ml pen injector (20 sources) GLP-1 Receptor Agonist Start: 11-25-2023 End: 12-26-2023 Liraglutide (Victoza 2-Acosta) 0.6 mg/0.1 mL (18 mg/3 mL) pen injector Active 0 SUBCUT .COMPLEX December 26, 2023 9:20am inject 0.6mg subcutaneously once daily Start: 03-22-2017 VICTOZA 2-ACOSTA 0.6 mg/0.1 mL (18 mg/3 mL) Pen Inject 1.2 mg under the skin daily . 0 03/22/2017 Active Start: 03-22-2017 VICTOZA 2-ACOSTA 0.6 mg/0.1 mL (18 mg/3 mL) Pen lisinopril 5 mg oral tablet (11 sources) Angiotensin Converting Enzyme Inhibitor Start: 08-18-2023 take 5 mg by mouth once daily Lisinopril Active 5 MG PO Daily August 18, 2023 12:00am take 1 tablet by mouth once dunia y lisinopriL (PRINIVIL,ZESTRIL) 2.5 MG tablet Take 2.5 mg by mouth daily . 0 Active metFORMIN hydrochloride 1000 mg oral tablet (20 sources) Biguanide Start: 08-18-2023 take 1000 mg by mouth twice daily Metformin Active 1000 MG PO Twice daily August 18, 2023 12:00am Start: 08-16-2016 take 1 tablet by alvaro th twice daily at mealtime metFORMIN (GLUCOPHAGE) 1000 MG tablet Take 1,000 mg by mouth 2 (two) times a day with meals . 0 08/16/2016 Active methylPREDNISolone 4 mg oral tablet (2 sources) Corticosteroid Start: 08-03-2021 End: 08-09-2021 Medrol 4 mg Tab = 1 packet(s), Oral, As Directed, as directed on package labeling, X 6 day(s), # 21 tab(s), Refills(s) 0, Pharmacy: [facility]/pharmacy #[id number], 178, cm, 08/03/21 10:30:00 EDT, Height/Length Dosing, 175, kg, 08/03/21 10:30:00 EDT, Weight Dosing Start Date: 08/03/21 Stop Date: 08/09/21 Status: Ordered Start: 10-09-2019 End: 10-09-2019 methylPREDNISolone sod suc(P F) (SOLU-medrol) Injection 125 mg montelukast 10 mg oral tablet (20 sources) Leukotriene Receptor Antagonist Start: 08-18-2023 take 10 mg by mouth once daily Montelukast Active 10 MG PO Daily August 18, 2023 12:00am Start: 11-27-2017 End: 06-04-2018 take 1 tablet [...] capsule (20 sources) Proton Pump Inhibitor Start: 08-18-2023 take 40 mg by mouth once daily Omeprazole Active 40 MG PO Daily August 18, 2023 12:00am Start: 01-21-2018 take 1 capsule by mo uth once daily omeprazole (PRILOSEC) 40 MG capsule Take 40 mg by mouth daily . 0 01/21/2018 Active take 1 capsule by mo uth once daily omeprazole (PRILOSEC) 20 MG capsule Take 20 [...] . 28 tablet 0 06/15/2018 06/22/2018 Active Potassium Chloride (Klor-Con M20) 20 mEq tablet,ER particles/crystals (3 sources) Start: 08-18-2023 Potassium Chlo ride (Klor-Con M20) 20 mEq tablet,ER particles/crystals Active 20 MEQ PO Daily August 18, 2023 12:00am predniSONE 10 mg oral tablet (20 sources) Start: 11-25-2023 End: 12-26-2023 take 0.5 tablet by mouth once daily Prednisone Active 10 MG PO daily December 26, 2023 9:20am Take 40 mg for 2 days, 30 mg for 2 days, 20 mg for 2 days, 10 mg for 2 days, 1/2 tablet for 2 days Start: 08-18-2023 End: 08-18-2023 Prednisone Discontinued 10 M G PO As Directed August 18, 2023 12:00am August 18, 2023 8:53am see taper instructions Start: 05-30-2020 End: 11-21-2020 predniSONE (DELTASONE) 20 MG tablet Indications: Chronic obstructive pulmonary disease with acute exacerbation (HCC) TAKE 2 TABLETS BY MOUTH FOR 4 DAYS THEN 1 TABLET FOR 4 DAYS . 12 tablet 0 11/21/2020 Active Start: 11-24-2019 predniSONE (DE LTASONE) 10 MG tablet Take 2 pills daily for 5 days, then take 1 pill daily for 5 days, and then stop. . 15 tablet 0 11/24/2019 Active Start: 10-10-2019 take 4 tablets by mo uth once daily, then take 2 tablets by [...] Drug Class(es) Dates Sig (Normalized) Sig (Original) albuterol 0.833 mg/ml / ipratropium bromide 0.167 mg/ml inhalation solution (20 sources) Anticholinergic, beta2-Adrenergic Agonist Start: 11-11-2023 End: 11-25-2023 Ipratropium-Albuter ol Discontinued 3 ML INHALATION every 6 to 8 hours 180 90 November 25, 2023 8:44am November 25, 2023 8:45am Start: 08-25-2023 End: 11-04-2023 take 1 mL by inhalation every four to six hours Ipratropium-Albuterol Discontinued 3 ML INHALATION EVERY 4-6 HOURS 90 30 November 04, 2023 11:21am November 04, 2023 11:35am Start: 08-03-2021 End: 01-30-2022 take 3 mL by inhalation four times daily albuterol-ipratropium Inh Jamilah 3 mL UD 3 mL, Inhalation, QID for 30 day(s), 360 mL, Refill(s) 5, [id number], 178, cm, 08/03/21 10:30:00 EDT, Height/Length Dosing, 175, kg, 08/03/21 10:30:00 EDT, Weight Dosing Start Date: 08/03/21 Stop Date: 01/30/22 Status: Ordered Start: 08-03-2021 End: 01-30-2022 take 3 mL by inhalation four times daily albuterol-ipratropium Inh Jamilah 3 mL UD 3 mL, Inhalation, QID for 30 day(s), 360 mL, Refill(s) 5, [id number], 178, cm, 08/03/21 10:30:00 EDT, Height/Length [...] J44.9 . 150 mL 6 06/17/2019 Active aspirin 81 mg chewable tablet (1 source) [...] . 1 Inhaler 11 03/01/2019 02/29/2020 Suspended 120 actuat budesonide 0.16 mg/actuat / formoterol fumarate 0.0048 mg/actuat / glycopyrrolate 0.009 mg/actuat metered dose inhaler (3 sources) Corticosteroid, beta2-Adrenergic Agonist Start: 08-18-2023 End: 08-25-2023 Ciqjzjmtke-Uvmgzncd-Dyexrvrk ol (Breztri Aerosphere) 160-9-4.8 mcg/actuation HFA aerosol inhaler Discontinued 2 INH INHALATION Twice daily August 18, 2023 12:00am August 25, 2023 9:29am 12 hr buPROPion hydrochloride 150 mg extended [...] day. 60 tablet 11 11/25/2016 11/25/2017 Active dicyclomine hydrochloride 20 mg oral tablet (3 sources) Anticholinergic Start: 08-18-2023 End: 11-25-2023 take 20 mg by mouth three times daily Dicyclomine Discontinued 20 MG PO Three times daily 60 August 18, 2023 12:00am November 25, 2023 8:38am docusate sodium 50 mg / sennosides, skilled nursing 8.6 mg oral tablet (10 sources) Start: 08-16-2016 End: 10-10-2019 senna-docusate (SENNA-S) 8.6-50 mg Take by mouth. 0 08/16/2016 10/10/2019 Discontinued 0.5 ml dulaglutide 1.5 mg/ml auto-injector (3 sources) GLP-1 Receptor Agonist Start: 08-18-2023 End: 11-25-2023 Dulaglutide (Trulicity) 0.75 mg/0.5 mL pen injector Discontinued 0.75 MG SUBCUT every week 2.5 August 18, 2023 12:00am November 25, 2023 8:38am ipratropium bromide 0.2 mg/ml inhalation solution (19 sources) Anticholinergic Start: 11-04-2023 End: 11-11-2023 take 1 mL by inhalation every six hours Ipratropium [place] Discontinued 3 ML INHALATION Every 6 hours 150 November 04, 2023 11:35am November 11, 2023 4:41pm Start: 08-18-2023 End: 08-25-2023 Ipratropium [place] Disconti nued 2 SPRAY INTRANASAL Three times daily August 18, 2023 12:00am August 25, 2023 7:58am Start: 12-11-2020 take 2 spray(s) nasa l route three times daily ipratropium (ATROVENT) 21 [...] day . 1 Inhaler 3 12/01/2019 Active microencapsulated potassium chloride 20 meq extended release oral tablet (20 sources) Start: 04-15-2014 End: 10-10-2019 take 1 tablet by mouth once daily, then take 1 tablet by mouth potassium chloride SA (K-DUR,KLOR-CON) 20 MEQ tablet Take 20 mEq by mouth daily . 0 04/15/2014 10/10/2019 Discontinued Semaglutide (3 sources) Start: 08-18-2023 End: 08-18-2023 inject 1 mg by subcutaneous injection every week Semaglutide (Ozempic) 1 mg/dose (4 mg/3 mL) pen injector Discontinued 1 MG SUBCUT every week August 18, 2023 12:00am August 18, 2023 8:50am Sodium Chloride (1 source) Start: 10-09-2019 End: [...] Active Problems Problem Classification Problem Date Documented Date Episodic/Chronic Chronic obstructive pulmonary disease and bronchiectasis (20 sources) Centriacinar emphysema; Translations: [Acute exacerbation of chronic obstructive airways disease] Onset: 11-25-2016 11-25-2016 Chronic Diabetes mellitus without complication (5 sources) Type 2 diabetes mellitus; Translations: [Type 2 diabetes mellitus without complications] 08-18-2023 Chronic Disorders of lipid metabolism (4 sources) Hyperlipidemia; Translations: [Hyperlipidemia, unspecified] 08-18-2023 Chronic Disorders of teeth and jaw (2 sources) Other specified disorders of teeth and supporting structures; Translations: [Other specified disorders of teeth and supporting structures] Onset: 06-15-2018 Essential hypertension (4 sources) Hypertensive disorder; Translations: [Essential (primary) hypertension] 08-18-2023 Chronic Gastritis and duodenitis (2 sources) Gastritis; Translations: [Gastritis, unspecified, without bleeding] 08-18-2023 Episodic Nonspecific chest pain (1 source) Chest pain; Translations: [Chest pain, unspecified type] Episodic Other diseases of veins and lymphatics (2 sources) Vascular insufficiency; Translations: [Venous insufficiency (chronic) (peripheral)] 08-18-2023 Episodic Residual codes; unclassified (2 sources) Sleep apnea; Translations: [Sleep apnea, unspecified] 08-18-2023 Chronic Screening or history of mental health and substance abuse (16 sources) Tobacco user; Translations: [Tobacco abuse disorder] Onset: 11-25-2016 11-25-2016 Chronic Substance-related disorders (10 sources) Cigarette smoker ; Translations: [Nicotine dependence, cigarettes, uncomplicated] Onset: 04-01-2017 04-01-2017 Chronic Unclassified (20 sources) Obstructive sleep apnea syndrome; Translations: [Obstructive sleep apnea (adult) (pediatric)] Onset: 11-25-2016 11-25-2016 Chronic Unclassified (1 source) ERRONEOUS ENCOUNTER--DISREGARD Past or Other Problems Problem Classification Problem [...] Test Name Value Interpretation Reference Range Facility HbA1c HPLC (Bld) [Mass fract ion]on 11-25-2023 HbA1c (Bld) [Mass fraction] 8.4 % [facility] Physician Orderon 03-28-2023 Physician Order [id number] #1.00TIFF [facility] Consent for Treatmenton 11-26 Consent for Treatment [id number] #1.00TIFF [facility] Physician Orderon 12-23-2022 Physician Order [id number] 8#1.00TIFF [facility] XR Chest 2 Viewson XR Chest 2 Views Exam Date/Time: 12/23/2022 [...] mGy = . DAP = . Normal [facility] Consent for Treatmenton 07-26 Consent for Treatment [id number] #1.00CD:127 Normal [facility] Physician Orderon 08-16-2022 Physician Order [id number] 1#1.00CD:127 [facility] XR Chest 2 Viewson XR Chest [...] mGy = na DAP = na [facility] Coding Summary.on 05-30-2022 Coding Summary. [id number] Ww+PGhlYWQ+SC8SJWBpD 00ltXErbE7aZ0KWTUvTP ywgQVBQTElOSyIgbmFtZ Q0dwOGqQGDh IC8+CN1xGEZdQckiiVSr r8T1pCS9C70byf5yNHbt xMH9UUIvEiLafrbbq8lv nTw1UWxwDwhqRfOz FKUdnT72KAS1oS99Zm93 eXIpcXDza2wdyNf0QpUc EQZjXER2eXpqMJyvr2Cu JYNjX57rsCEaw7J3 IGNvbGxhcHNlOyBlbXB0 cQ6vFFohayhng8vekdhz Fon9mg11jIWto0K3iJZ1 I9PameH0XMFzjMGd AixjjVIXiR6jmhmgw5ag zsklNlSwJKDaROe8GRi0 DVCtuMvhObMwAC45FEM4 EFPpwyNyM0CpPZAq vHefSwP9k4Q6Qa4EU4FD EshlG0CGWHVFXXwmdCY+ QO53hk46F2DpAyzpIsh4 YMMbCIB8dAO1rU9g EZSgQVkyv3S1sLP1E8Bl rqVcdf6pc4fdMTTzZMlj L70pvABxs4T0RTNpuHE2 IIYmxEbbTvNlpV52 Oyc+ASYprRwrn8AxDjjp m3vhl0apxJu1YuxlINJp bfZuoShuUOO6l7MuGq9n JZCyxZJ6gPQ1zX7b BmImCwJ2XRrjT204IcUs vWCiGtjeU70mW0KdfCL+ UTZlWdq2GTKmqEvfKZ3v Q9FxMUNypavezZRy wKjjBD4wCWVrynsqQGUi uZ7vIWHiV7y2KlQfQiI3 XFgmC3FnKBRcrmtgKe31 yA9aSnOvEeN1IUzn O6CxsnC9LTIfqVPiXBre FIV5L10bp3F3JDYfJPCa UNR8xPX6yA9hyLyayrjv bGVmdDsgdmVydGlj PYwlVBnbM573UCAixEuf PkNvZGluZyBEYXRlOiAg MDQvMDYvMjAyMzwvdGQ+ AIJeKXE3zMebOORc yOJtMCacFz0rkFkhsHpw LE6wAJIukyhvBURsbK8c QVBgeJYwpBjcEG4mYXHk tfsnz617HtRrUPJ0 WSMubGZyB8TxaK4vDfPj XAXoFYAsH3UmuTDrEUvz K144TAdiYjS3UFGqfaPw R9SxWXTisDxpXeN9 q9S2Fz4Qm9JphsarP3Ic zNOxDiAvSbnuQFm4J7Xv PjwvdHI+EB83JGLcFT43 WAd4BRE4lLvyIQyk CELhU1CbcK4tNaGwXLOa ZGRkOyc+PHRhYmxlIHdp ZHRoPScxMDAlJyBzdHls SS3bCt0rTBPtPKCv wIoteYFaJtIwn6xxJOWs PLbuKP7plRrcD1GwrQA7 VWCzi9b8If90M37yA9Vv dXA+GTFfaJT6aTI0 uL9yPlNtSqP7VNfuG556 HkQtjHHzNreee1tzq4ud nTh7NuV0TEYazeXsbObc XLN4o2RzLj94M40c IHdpZHRoPSIxNSUiIHZh cEdzoe0sqQ0fYb7+PGNv dYM6dHU0eC1wPiRuAtO1 IUyeO661AoXkdOOp Fsklb9elc9xicEs3LhAb PZLcelBejAewGOG5n6Kv Vz96M5JswSmgm2ScIiu3 bb59yPRcp3Q1xQY0 G5EdOLSjzfusoETxmHvx JB1pLTAivoitQGCpiT7l WEPoE3i8AvQcKgN0SWyi J3JwasA2RWTnaSWm MHXyaDEExZ2ycxqhd3ow xdvbFsZwABIyHKf1WCg5 EPNmhGfjXjZhBOP5UnB4 RUQ6xCCjqK1ohFsd gedwzX2nJii+NPA1lKHj bLSHRB3nMqxrvNU+PHRk AOI0hIygJHcsYWHstA3z QEDvO1i5JyExYqZ5 MZzzI4OkypU3BBHsjFCx PRCewKPLmD1brwyto2hb itbdKeZvYRVdNRl3SZa9 LWFsaWduOiBsZWZ0 QnC1QST6jCChdJ1mwObp xxoenH6dNzw+QmlydGgg GIA5GVu3C2KjKlc6MTFo nZoiPO3gzQYfXUiu Ib5jrCqkzBfnID7oMVBf vnjva119AgPlf2foNLWp gPPeWRuuJKL3Q11vu2P6 CHVsBMUxEBN9tIO8 mM4pmXnkvugccXUswPgn hqFhkNppFUmyROdiO267 HDEyhMyoBuAzAGi2T4At Yff2QZVthGzfOX5i qNUqZZtmDd7wuEehjLkw UT4cOGWojsqni339SlMh p7rtLWRidRRyGJfjIWC1 S32nr8L8VCJnPEZm YSY5kZH5rM1kzSittyho bGVmdDsgdmVydGljYWwt CCymH831FAAheKfpZpEj xHo3W3TpNwd6MXGs lUdnML3jbLEnPZhnHg6g pSsoyDifYB1bYUQknbyj j472UrDwf5nzRDEfjCVg QCmwBVN3I88dh5A5 MENdMVJkJBA4lGT4vX5l bGlnbjogbGVmdDsgdmVy fMfnIPegYFlmT642IEUu cDsnPlBhdGllbnQg FUdcFGn0L5TpUsdewDX+ GL95JJNoVX92jVRhwHPp b6qxfEl3LfKdNAXgKFD0 dKrlJEmcb7ZlPDXg M19bqTHps5Y7YZTclNbq tUHnFwHnqHE8hQ0iNGjb vgkxg6zdppgmEgtmy2zh xh02dU61Z42vTPex ZHRoPSIzMCUiIHZhbGln tt0rxL0mZc6+PGNvbCB3 pAB6pQ5zEIWcLpP2XEmr U684SxOexOStYvlt v1xpc9nizWp7NiL7KENj koFsxPijZII7o1ItFj39 L70hLIrkSCWsNWLpADTv LBAosTvlio0ooQ2e Ii8+JWEilJA7fPI2wX0w ZfMtAfW2AVkjG785QfLd hVItDjysQ08jZ1WhrYW+ MTWgTyp3IPUffCgj PV4obWXdZWfoJm2cULU1 DrJiQqHdXKrnP3UcDVMm cjrulpbleLT5URHpIQQr jW29Ee4htVgkMIAi iFFHvG0wgrhue4ajojlu HkVkHZNyEJd1JFf2OESh wAhnPfVvXEU2TcH3CGL0 fIHtvB0lsYfmrcpd lC8yR1JkFNBfnzmoWe18 xO9jYrHfNbS4LOmzRkg+ SbVNEymUHZzzRFYAVU8F FCOlPNjEUM69U2Bx Yxq1UPXcnIbfRY4hmMUr DBvhNk4qxWyqzQdfPY0m KIGdsuwzPGIuqC3eSOIt hCFjjHwjIN8nITTw mzzcj974FdBsJBG5TYCs tYTzO1MrnI1jHjDbLMCj VCTyE9AgiNPfADbqR701 UXijOjE8JBTtiiPs T4CnCXXstUooLlY5e3L1 Aa6tWZ2tOZ1jBSkuUJ82 FE56mUXuz1E1sQR1U9Vm ZGRpbmctcmlnaHQ6 UUOzUIOqiM04eBExNFxd Ez5ku5G8w348VNQqBHQu gO58Fa4rjHamALEpkNGO rF9sshgjo0yvrtiz LrAgYWMhZGt5ZUq0JGSp mIglTjSjVDV5OkI7GYW9 eKXmtU8tdSmfzzkhnR1v Oyc+NTIgWWVhcnM8 W5XiXir0PEHyiTucDE8s rMUcLEzpGa3luUwxtRki XJ8cNMJkcytpVMVptH3m FTFqjUXeeGrgJY4i GVJhektud265HdInMHK0 ANGuhYNsJ1CxsB8sScVb SAXzAMDkL6EyvYGdNNuu U279GVpbYtI0KTUm wxGwB1KeLNUqrKfzWzE4 z8Q7Cr4QZNuhWX11BE26 cCFib1M9lML8Q5SyOSBg wjxltpiihXK1IESj FYNdeM43hJGjTJbmHt8h f7F5x574AHPkSPDymE03 Wv6rvLvlPMGvzCRKuK4n alfaa7zrvghhIiAl AHTuDLk9RSf6PJLnlGek PtKdSEJ4VzM7ZSL5rTZe oJ2umEwrgwdhxQ5oLjs+ Q2Y5oQB2cSTpcBkb dGQ+WC61jk18E1TiXmef Sdz6JQCrOKZ4oLM9fU9y DFSzHZcgq4B0wWX4O2Ke xwVcve6sn0efVNEk GWruE77efONsr8C8CCWl sBR0MJUflRsvGyFezW69 Oyc+QWJdjXcuz1ZlUdju k4hcq0ukrEx5UgLi EKWyzvTmwPhfRKS1m2Em Aa44E39gOHheDEOqWGGs TJZyZQEdvVosbx4tpC5j Ii8+IPZdsAI2nGD4 mM4rAeScPtC9NBymK038 FoUzxLGbJgadd8mpd5dm cBm6BqImKDFqlfMpoOgr KUE4i2MoSt54R6Rk cQqrl0OlQfj5dx80gJLk d8V8nLY1R9PvJGYrxsoq mABdvVvmUQ7bZDWfedrn MHDgeT2vXJJwA9s9 UpWaHvQ7QYpeW1QywcB9 CPYpzTRsBOOeaMVTcT0z xvehb4buiugiLmCiENWx OHg1VIa0TALgwIka BoEvJGW0UtR1QMM6eURg uX5bkFlxhmgwyP8dIbx+ JOf1t6fhfGXwGD1ptAM3 GC61UR27uBLsy0B3 eGD0J5StAEEflndgmpri sVH1MTApTPGfvQ26Ks1u tHazSj0nWTGaIGZ1DHLx iBWlO5WumB4bEzYx CMHmJGOhJ6KusXVfNWcj R275BYarIlM6SVFhtzQa R4RjTXKyhQfoOpR4c4B6 Ye7MFQ52TN94GZ40 mFDft0P6zKU4N2BmKYUy bycqiexgdZM2JVDtXVBs wX33Fi2ufKljPj0dUZIm GME4VHUxtWZvB8Uo hU2bEsQcYVPmYDJhE4Dr kCHcLQylN340BJdbXiK4 KYWadiLiX6QqOIZmjCwm CqI2b8U7Ho3YZz18 IQ76LW74iSUal6M3fUD0 M3YeKLEvojcpusdqeGL0 VQBqCLDtuD42Nj8xfKst Hd1lXILcCSN9XUWf aNGwT6PgbC8nEaPcIGSm XVOmC4SmiRQfTTekF891 QJezWkJ0MTYgzdDiC2Pl WCVgmIxlBuJ4c9T9 Hz0EAOktcjb3G5EwIxck dHI+AB17MDFlLI96bPEi qPUcc2rhbKo6PaBfGWLi KCP5dRuxLAuvy7Tz FITxI32l (more content not included)... [facility] Consent for Treatmenton 04-25 Consent for Treatment [id number] #[id number]:127 [facility] Physician Orderon 05-22-2022 Physician Order [id number] 3#1.00CD:127 [facility] XR Chest 2 Viewson 3 XR [...] in mGy = na DAP = na [facility] Coding Summary.on 05-15-2022 Coding Summary. CD:[id number]:[id number] Gh0bWw+PGhlYWQ+PE1FV WQuN54xkTKxtS3qM5MFA ElOSywgQVBQTElOSyIgb fFxRK1mkMQoAHXp IC8+DK3rCXCzKvegsMUb n2X2oKS5Z25lin0dVBah tZT1JXOdKpQzfggwk8nq oJh6JChcTgmpZaSr KOUkjW46LBQ6sL79Pt45 fKPycLTqy8bnnSq6OaKd RUGbLKZ3xIfoADkku0Dh JZKxO69mvGBgc7F8 IGNvbGxhcHNlOyBlbXB0 rD8xRMrgiuamb9yvfgms Pqv7ty87kNNcz1X3eEF4 J2CwewU0ZZVibSJn CbwqdZKGuS1mwdkcd6wm vgavXzUiFEWnQSt1AEr3 LBInhVmnVoCrOZ10SRS8 ABHwxyQgJ3IaRNGq pEnbPnR9n4R0Pf8RP9UA DtgiX9STGPLDIKepdCK+ BH46vh81E2EgCehhPaz2 TQTuSCN6oPS9tM1s OOUtPFwxj2V0eTB1H6Ni fuFkzb9dw3ntVPQjZRmj A94vvZTfy7B8FEPyoTS7 VWZuoQgaWbEnoF60 Oyc+IZOilPihu6JtBeqx r8vnu7odgZi6WebhNWEs koJlfDjxMYY8u7TeHh9s NZUcnKW0rUC3mA5m MtFhKqJ8UCarV300QuCs nBVuYihqX98hK8NsnHU+ AIHyWli8FEHrmNxuVD2k O8AnSOClqyxncBMf iMiiII9jIOQslgxtXTKe xH9eQFKgJ1p3PrRkOhI9 FOhfH1TiCTKstxtvNx00 xI9yVaOmEkC7NCxw O4BvqsS2FWFwzQLoHYbo KFT1L57bj0Y9RJKbVSCr ZJJ8hHD7nN8pgXloqpmu bGVmdDsgdmVydGlj MWcbCCfgO883GZQpeAwz PkNvZGluZyBEYXRlOiAg MDMvMjIvMjAyMzwvdGQ+ MLSiNDY6kVznFQCp mBRuCMstVl4ryXgzkTqs HN2zVFIcrejbHIVjjG5n ZWDyzVIetHirMW4cAFCk mmhqd731NdWuRSK3 STWkkPHaM7XdzE6vSbYt XBVxKYSnE1StsVVqDRdj Y466EHndGeZ9EIKpexVw C0EaGDObtEjvDaW3 e3G5Ja9Jp1GklonjK4Zo tXXePlQuQhwiWEq4B5Ky PjwvdHI+GW19YLFsWM41 FSw7BZY8mVpbQZww TBXjH4YcfT0tEoXvQCKc ZGRkOyc+PHRhYmxlIHdp ZHRoPScxMDAlJyBzdHls HH2cAm8gRMNcXPJh wPqziTGiEjHkj7anFZSk KVjkXN7juErtD8BjhMX1 VCAqi8b8Ok68P66uO4Hy dXA+CXZjkCZ0sSU9 hJ0vYnMgBsU8KUzzF086 ZiOcxEEfFonwl3zio0ri tXz1YpL7DVSaffZwdJbw UGI5c3HgIk13Y82l IHdpZHRoPSIxNSUiIHZh rOphdc9tiS2nWb5+PGNv qSA6oER8eQ6uLoFjSrN6 NKhsJ535ZsAhdCRt Pvcnr3hor5axqJj0CkId EQLhgfVwlZhrFHL2z9Bt Pn47T5PkvYpae3JtAwe6 xz75nGMdx7P6hHY3 T7OnOTMfnrawwTZewDqu PB6rVXJwohgiMNGsrF4g LAKeX8p6AsGzEgI0RGuu Q4YntcC0SSUdzZMm FGDxeRHFuM5kgtyml3uk kprdJvLfCCPoVVw3BBw3 WSCxzEhxLnXrIEP7MmW5 UNI7dBNhaJ7pqBxu ipwehB0tJlf+YUA6pYHp pDZWZR6mQosatUK+PHRk FWG9uUjnZLhkIGPjfH6i PWVeL5d2OsRjGdH2 BLvxU5QfgnN9FODckLYz EBWctLQCfM2livmlt3ro svycNoMaPPNhBTa7IOy1 LWFsaWduOiBsZWZ0 KdM5DYN2jIIhtL0qzWqz sqkjqS6sJaq+QmlydGgg KDW6GSn0J9AqDcy7LAEj vVpsLQ8dbXOwTUfm Gn9jyNmhpZwtQE7eHHIe xzvnu393OaSyh9blAUHw gZCbTArxBNS9Z67yq8Z4 GBNbQVHqOKL6nOM9 wT5fjTezuskwoVQhdJty bvEqjKznLCwqADcsT117 XEVihKxuIxBhNEc4Q4Cp Lda0EMSieSbxZD8z wENnNZadAa6tqShfmUuj QS6mFMAsrlksf305UgZa q6pqFDYhgGPoIQvmIHB6 B01gw7D3KZBwMBDy NUZ4wMI7rT8vrAonvrdj bGVmdDsgdmVydGljYWwt TNtsC738UXLxqAbsJsEw uZc0P9NuFmn2QOIt sVaoBE9ioSPeFIhgFl7i rPrttNpdVN6sRSZygwsf r915EiPxm9skTHRlzIQw JPnhABS6Y86qh1L5 GJCwUYQbWPK4bHR2nF5e bGlnbjogbGVmdDsgdmVy bNqtUHhuYDwrP245SYIc cDsnPlBhdGllbnQg RKzqVTq8Q2GaEyxuePP+ SY34OANrVY27aGFmsOSq e5hohUl4WuDlHJJwJXF5 iKsjHKvdw8EbQNEi Z75raXRrp7G8XJQwgQmx sYKhEdFalNL0hQ5wQIwb qtgvs2mpfnosBdhuw6ou wd48xU35S66gUPoo ZHRoPSIzMCUiIHZhbGln sl3znL6kRz9+PGNvbCB3 cJB7lO8hZCNfLpW8SSxh W632FjFwyKJbDuzy q1nbq8bzhQu3IhB9KDDt lbIsmFamHEK6c1IcIg58 C22mALtzXISnNDMvVDLg ZRFohVhrnc7wrG2e Ii8+VTXkrRM2wAT2dU7k GhHeSiC3UTtfF578OzNs vSNtKlrwJ44dV8RvpNY+ KUGhNkq6OBEtlOgb GT1zmFAqZTwoFa3vSOS1 MfSnXeTcNOvjM3XyDDCe waiifmyejFC3UMPuLVCc qQ55Ma2haXxwXIQx pHOOaL3lusoum6onbhpr OgNcGHThNUq4RUb9JTWl vHmbJgPfJUQ0CwP5TUH4 qVLubI3kwYoreoqx wQ9zB4SyOIEhtbgkXo28 sO7mCtYvQoR7WVezXnl+ DxQXTgdMNFwsVONKNM4X SAFhUKyADS93N3Zv Jmp6LFSmaFzhGZ5cxPTc XWhiUm0ppOqgmAvjDR0y LYUishxcLMIutJ3tODJz qMGdrNnoZT9zHATc myxpn649FiBgWBV6YBBy wYQtR1ZhmS3kGaFnUZYr SVWaZ6KagQLrZNjvX507 NQjgSdG2CUOtypOr B1NyPMFwfTbdVgA7n0Z3 Fx1fOA6gSW9vAChtMY73 MI17jYSrq8K7pHK0R5Bf ZGRpbmctcmlnaHQ6 SOBaEDKyaF22nXExTGfj Fw2om9S4c949KAQsXTYg gA50Jl0fzIrtFEOqiHAW uV0aczegr3mibxgq RpSuXSAfLFc6OBd2YTCb zKqqFjAdMSS2XiE0IDT8 nPPzcT2ilCplyqpjcS5o Oyc+NTIgWWVhcnM8 J1OyNdr5EZXjqQczNQ8i lCCgCFunMy9xtKsssEkp IQ9pNWTwwfjqDFUlcG3t TPCqfGYlzApkZD2t LGNerimnu514DpJgVOM6 BZZbuOJtT3JqaQ6gYaHo MGZuTEVqD0JyaNSpCGvs H856JVruXiK4ASFg leDgF2DxPHOumOgoDeK2 w4F2Qa1SLUbdSI28SI09 rTBnf6W2cQJ1S2EqIEKc vicyjsuayCL4ZOMt JUXohQ82cIZpHFgcQy1i m3T6z825FARvHXHccX99 Lz3amOliTXYgqSKFqM2w mumug8lhhqcdHiGj YBGkVVg9HDq6FAPjqAtb GwApRRK0KmH8ZEG6bGKu sH2pgYyuasyamU1wLct+ H5Y9kXO4aORvrOns dGQ+SF10lo63D5MyVchk Czi0UVCnCRV0iAT3wZ3p KSRcRGrba7J1iXU2Y1Du hiEpvm9oc4tnDMWr ZRdbM67hsKVax0E6YVHu tZF2ZCOyfMxsIvBpqX02 Oyc+ZBXdjZusl5WcIxuy b2uuv6dxxQm6XsVb EXOostIdlRyhBQX9u9Gr Ar80N38yQFfkLQSkAICw TSZbKIWcxEomgh2nzY5m Ii8+ISZkzXQ4hHJ9 yP7qVvVwHiE7QJnwL277 OxZutOQpJdnzj4vsw3yd cVo3MdIfPTGmwzLfkGbn AZB7z5KmEh87R7Xd dLfaz8VwXod5fs62pBQf n8J2pFZ1W9BuHZTuywyk jUMuwKzrYM1yVRGcccmd BQMqlO1rRPJmE7q5 RbKgUyN0PTskH5UvkvU2 EGFniLZnYIKkhYSOnK2n mmikl4xnwtllVdXuGAXd QLq3GCp1MLNtyAxk MgStRWA0BtW3TFA3tWYe xW6mnNctctlaoH7eRjj+ WAf4o6ohiSJxDY0apET7 SU63JU28eNUgs9M9 xJT2Q7FaDLYpxnkvptky gJZ2DGXiSGFqgS65Sf3k aKtgYb8zQCLyHAT0EVYb tYTsL1WuxD6wLlRr TCWxUNDoC8JndEYrMDse B010WBuiXqC9BVUrjtGw W6MgXHHrgDdsUeK4w5J3 Td0NMU08TE36MH67 cDRal0I8mKZ1B2FdHQAm umqrfliwuVD8SUZyXNAk wK77Mf9nfDyaFt9cWRDg NOE6DPYztJCbN1Ar rV6rGgBoBWXdBVIuW6Zo pEMaLYrlS001DOcgWmH2 NSGuhxHaA2DgSQTgiUjo UzM0q2L3Gs0NTx28 KI22GY19mVZxk3V2nFI6 V0HjWTSxxdknyftimHO2 WUQdJNUlrG49Ns5alQnv Hc8sFXLmOZN9JOHm qMBmP6WspF6eRrMqRKBy KQXfA1LqqAAcTVdjL754 UWaaAnA0PZJrqbUtG6Yt KHXstDetMyN6z8R3 Yh8MHElsyvl7M9QfIdeh dHI+KP24HDVsDK69jFPy oNJnc8xlmCh4AlThSXIj VYI1fDkwHXuhn8Ly ZXIt (more content not included)... [facility] Consent for Treatmenton 04-24 Consent for Treatment [id number] #1.00CD:127 Normal [facility] Physician Orderon 05-06-2022 Physician Order [id number] 7#1.00CD:127 Normal [facility] XR Chest 2 Viewson XR Chest [...] mGy = na DAP = na [facility] POC COVID-19, MOLECULARon SARS-COV-2 (PERES ID) Not Detected Normal Not Detected [facility] Comment on above: Result Comment: This test [...] at the following links: For Healthcare Providers: https://www.fda.gov/media/966092/download For Patients: https://www.fda.gov/media/424579/download Performed By: #### P [id number] #### OED FSED POCT LAB [address] [place] [id number] Rao Pérez, Ph.d. [id number] POC Troponin Ion 10-10-2019 Interpretation and review of laboratory results Normal [facility] Troponin I.cardiac [Mass/Vol] ng/mL <0.05 ng/mL [facility] XR CHEST PA/APon 10-10-2019 XR [...] are clear. IMPRESSION: No acute cardiopulmonary disease. [employer] Workstation ID: [id number] Dictated by: CHACORTA ROCHA on [facility] Oct 09, 2019 11:08:51 PM EDT Transcribed by: WILLIAMS THOMASON on [facility] Oct 09, 2019 11:24:16 PM EDT Finalized by: CHACORTA ROCHA on [facility] 2019 6:06:07 AM EDT [facility] Comment on above: Order Comment: Injur y/Trauma [...] LAFB QRS axis: left T Inversion: aVL DE Interval: 168 QRS Interval: 88 QT Interval: 433 Clinical impression: non-specific ECG [facility] POC CBC and Differentialon 0 10-09-2019 Basophils (Bld) [#/Vol] 0.06 10*3/uL [facility] Basophils/100 WBC (Bld) 0.6 % [facility] Eosinophils (Bld) [#/Vol] 0.17 10*3/uL [facility] Eosinophils/100 WBC (Bld) 1.6 % [facility] Erythrocyte distribution width (RBC) [Entitic vol] 15.2 % High 11.6 - 14.8 % [facility] Hematocrit (Bld) [Volume fraction] 45.8 % 41 - 53 % [facility] Hemoglobin (Bld) [Mass/Vol] 15.3 g/dL 13.5 - 17.5 g/dL [facility] Immature granulocytes (Bld) [#/Vol] 0.07 10*3/uL [facility] Immature granulocytes/100 WBC (Bld) 0.70 % [facility] Comment on above: The IG parameter is the percentage of metamyelocytes, myelocytes and promyelocytes. An immature granulocyte count (IG) of 1% or more suggests the possibility of infection, an IG count of 3% is very likely related to an infection. Interpretation and review of laboratory results Abnormal [facility] Lymphocytes (Bld) [#/Vol] 1.91 10*3/uL [facility] Lymphocytes/100 WBC (Bld) 18.2 % [facility] MCH (RBC) [Entitic mass] 27.8 pg 26 - 34 pg [facility] MCHC (RBC) [Mass/Vol] 33.4 g/dL 31 - 37 g/dL [facility] MCV (RBC) [Entitic vol] 83.1 fL 80 - 100 fL [facility] Monocytes (Bld) [#/Vol] 0.65 10*3/uL [facility] Monocytes/100 WBC (Bld) 6.2 % [facility] Neutrophils (Bld) [#/Vol] 7.65 10*3/uL High [facility] Neutrophils/100 WBC (Bld) 72.7 % [facility] Platelet mean volume (Bld) [Entitic vol] 10.0 fL 9.4 - 12.4 fL [facility] Platelets (Bld) [#/Vol] 166 10*3/uL [facility] RBC (Bld) [#/Vol] 5.51 10*6/uL [facility] WBC (Bld) [#/Vol] 10.51 10*3/uL [facility] POC Covid-19, Molecularon Interpretation and review of laboratory results Normal [facility] SARS-CoV-2 Not Detected Not Detected [facility] Comment on above: This test [...] at the following links: For Healthcare Providers: https://www.fda.gov/media/696792/download For Patients: https://www.fda.gov/media/193356/download POC Troponin Ion 10-09-2019 Interpretation and review of laboratory results Normal [facility] Troponin I.cardiac [Mass/Vol] ng/mL <0.05 ng/mL [facility] POC Venous Blood Gases with Full Panelon 10-09-2019 Base excess Calc (BldV) [Moles/Vol] 0.9 mmol/L [facility] Calcium.ionized [Mass/Vol] 4.1 mg/dL Low 4.5 - 5.3 mg/dL [facility] Chloride [Moles/Vol] 101 mmol/L 98 - 108 mmol/L [facility] CO2 (BldV) [Partial pressure] 46.0 mm[Hg] [facility] Creatinine [Mass/Vol] 0.84 mg/dL 0.50 - 1.30 [facility] GFR/1.73 sq M predicted among non-blacks MDRD (S/P/Bld) [Vol rate/Area] The eGFR should be used for monitoring renal function only and not for medication dosing. Specimens collected in a lithium heparin tube may show erroneous pO2, pCO2 and related calculations due to aerobic handling. If the most accurate venous blood gas results are needed, use a heparinized blood gas syringe. [facility] GFR/1.73 sq M.predicted MDRD (S/P/Bld) [Vol rate/Area] 103 mL/min/{1.73_m2} >=60 mL/min/1.73 m2 [facility] Glucose [Mass/Vol] 202 mg/dL High 65 - 99 mg/dL [facility] HCO3 (Bld) [Moles/Vol] 26.7 mmol/L 24 - 28 mmol/L [facility] Hematocrit (Bld) [Volume fraction] 46 % 41 - 53 % [facility] Hemoglobin (Bld) [Mass/Vol] 15.5 g/dL 13.5 - 17.5 g/dL [facility] Interpretation and review of laboratory results Abnormal [facility] Lactate [Moles/Vol] 1.6 mmol/L 0.6 - 2 mmol/L [facility] Oxygen (BldV) [Partial pressure] 39 mm[Hg] [facility] Oxygen saturation in Venous blood 71.7 % High 40 - 70 % [facility] pH (BldV) 7.37 [pH] [facility] Potassium [Moles/Vol] 4.1 mmol/L 3.5 - 5.1 mmol/L [facility] Sodium [Moles/Vol] 137 mmol/L 135 - 145 mmol/L [facility] Urea nitrogen [Mass/Vol] 8 mg/dL 8 - 25 mg/dL [facility] Complete PFTon 04-01-2017 DL Adj [...] Time Vital Sign Value Performing Clinician Facility 12-26-2023 08:58-0400 Body height 177.[address] [facility] 12-26-2023 08:58-0400 Body mass index (BMI) [Ratio] 53.8 kg/m2 [facility] 12-26-2023 08:58-0400 Body temperature 96.6 [degF] [facility] 12-26-2023 08:58-0400 Body weight 170.[address] [facility] 12-26-2023 08:58-0400 Diastolic blood pressure 78 mm[Hg] [facility] 12-26-2023 08:58-0400 Heart rate 116 /min [facility] 12-26-2023 08:58-0400 SaO2% (BldA) [Mass fraction] 93 % [facility] 12-26-2023 08:58-0400 Systolic blood pressure 138 mm[Hg] [facility] 11-25-2023 08:33-0400 Body height 177.[address] [facility] 11-25-2023 08:33-0400 Body mass index (BMI) [Ratio] 53.4 kg/m2 [facility] 11-25-2023 08:33-0400 Body temperature 97.3 [degF] [facility] 11-25-2023 08:33-0400 Body weight 168.[address] [facility] 11-25-2023 08:33-0400 Diastolic blood pressure 64 mm[Hg] [facility] 11-25-2023 08:33-0400 Heart rate 72 /min [facility] 11-25-2023 08:33-0400 SaO2% (BldA) [Mass fraction] 90 % [facility] 11-25-2023 08:33-0400 Systolic blood pressure 118 mm[Hg] [facility] 08-18-2023 08:28-0400 Body height 177.[address] [facility] 08-18-2023 08:28-0400 Body mass index (BMI) [Ratio] 52.4 kg/m2 [facility] 08-18-2023 08:28-0400 Body weight 166.[address] [facility] 08-18-2023 08:28-0400 Diastolic blood pressure 72 mm[Hg] [facility] 08-18-2023 08:28-0400 Heart rate 85 /min [facility] 08-18-2023 08:28-0400 SaO2% (BldA) [Mass fraction] 94 % [facility] 08-18-2023 08:28-0400 Systolic blood pressure 110 mm[Hg] [facility] 08-03-2021 10:25-0400 Blood Pressure Location [facility] Eid [facility] 08-03-2021 10:25-0400 Diastolic blood pressure 67 mm[Hg] [facility] E[facility] 08-03-2021 10:25-0400 Heart rate 87 /[facility] 08-03-2021 10:25-0400 SaO2% (BldA) [Mass fraction] 95 % Basem Eid [facility] 08-03-2021 10:25-0400 Systolic blood pressure 106 mm[Hg] [facility] 10-10-2019 00:30-0400 Pulse Oximetry 97 % Myah Valle [facility] 10-10-2019 00:15-0400 Pulse (Heart Rate) 92 /[facility]:15-[facility]00 Respiratory Rate 20 /min Myah Valle [facility] 10-09-2019 23:32-0400 BP Diastolic 71 mm[Hg] Myah Valle [facility] 10-09-2019 23:32-0400 BP Systolic 133 mm[Hg] Myah Valle [facility] 10-09-2019 22:37-0400 BMI (Body Mass Index) 52.23 kg/m2 Myah Valle [facility] 10-09-2019 22:37-0400 Body Temperature 98.2 [degF] Myah Valle [facility] 10-09-2019 22:37-0400 Body weight 167.83 kg Myahmoise Valle [facility] 10-09-2019 22:37-0400 Height 177.8 cm Myahmoise Valle [facility] 12-10-2018 10:19-0400 BP Diastolic 78 mm[Hg] [facility] 12-10-2018 10:19-0400 BP Systolic 132 mm[Hg] Angelo Rios [facility] 12-10-2018 10:19-0400 Pulse (Heart Rate) 78 /min [facility] 12-10-2018 10:19-0400 Pulse Oximetry 93 % [facility] Comment on above: 12-10-2018 10:19-0400 Respiratory Rate 20 /min [facility] 06-15-2018 11:07-0400 BMI (Body Mass Index) 54.39 kg/m2 [facility] 06-15-2018 11:07-0400 Body Temperature 97.81 [degF] [facility] 06-15-2018 11:07-0400 Body weight 176.9 kg [facility] 06-15-2018 11:07-0400 BP Diastolic 77 mm[Hg] [facility] 06-15-2018 11:07-0400 BP Systolic 152 mm[Hg] [facility] 06-15-2018 11:07-0400 Height 180.3 cm Debbie Mora [facility] 06-15-2018 11:07-0400 Pulse (Heart Rate) 76 /min Debbie Yaneli [facility] 06-15-2018 11:07-0400 Pulse Oximetry 96 % Debbie Yaneli [facility] 06-15-2018 11:07-0400 Respiratory Rate 16 /min Debbie Yaneli [facility] 06-15-2018 10:19-0400 BMI (Body Mass Index) 55.51 kg/m2 [facility] 06-15-2018 10:19-0400 BP Diastolic 78 mm[Hg] [facility] 06-15-2018 10:19-0400 BP Systolic 136 mm[Hg] [facility] 06-15-2018 10:19-0400 Height 180.3 cm [facility] 06-15-2018 10:19-0400 Pulse (Heart Rate) 74 /min [facility] 06-15-2018 10:19-0400 Weight 180.53 kg [facility] 06-04-2018 09:11-0400 BP Diastolic 72 mm[Hg] [facility] 06-04-2018 09:11-0400 BP Systolic 111 mm[Hg] [facility] 06-04-2018 09:11-0400 Height 180.3 cm [facility] 06-04-2018 09:11-0400 Pulse (Heart Rate) 75 /min [facility] 06-04-2018 09:11-0400 Pulse Oximetry 95 % [facility] 06-04-2018 09:11-0400 Respiratory Rate 12 /min [facility] 04-01-2017 09:22-0500 BMI (Body Mass Index) 53 kg/m2 [facility] Work Phone: 04-01-2017 09:22-0500 BP Diastolic 85 mm[Hg] [facility] Work Phone: 04-01-2017 09:22-0500 BP Systolic 138 mm[Hg] [facility] Work [facility]: 04-01-2017 09:22-0500 [facility] 04-01-2017 09:22-0500 Pulse (Heart Rate) 75 /[facility] 04-01-2017 09:22-0500 Pulse Oximetry 94 % [facility] 04-01-2017 09:22-0500 Weight 172.37 kg Angelo Rios [facility] Work Phone: 11-25-2016 10:31-0400 BMI (Body Mass Index) 51.6 kg/m2 [facility] 11-25-2016 10:31-0400 BP Diastolic 68 mm[Hg] Angelo Rios [facility] Work Phone: 11-25-2016 10:31-0400 BP Systolic 126 mm[Hg] Angelo Rios [facility] Work Phone: 11-25-2016 10:31-0400 Height 180.3 [facility] 11-25-2016 10:31-0400 Pulse (Heart Rate) 87 /min [facility]: 11-25-2016 10:31-0400 Pulse Oximetry 95 % [facility]: 11-25-2016 10:31-0400 Respiratory Rate 16 /min [facility] 11-25-2016 10:31-0400 Weight 167.83 [facility] Encounters Encounter Date Encounter Type Care Provider Facility Start: 12-26-2023 End: 12-26-2023 [facility] Work Phone: Start: 12-26-2023 End: 12-26-2023 Patient encounter procedure [facility] Work Phone: Start: 11-25-2023 End: 11-25-2023 ambulatory [facility] Work Phone: Start: 11-25-2023 End: 11-25-2023 Patient encounter procedure [facility] Work Phone: Start: 08-18-2023 End: 08-18-2023 ambulatory [facility] Work Phone: Start: 08-18-2023 End: 08-18-2023 Patient encounter procedure [facility] Work Phone: Start: 07-31-2023 Documentation procedure Laxmi Perez [employer] [facility] Comment on above: Requesting Sleep Edmond dy Start: 12-23-2022 End: 12-24-2022 ambulatory Casey Morse [facility] Start: 12-23-2022 End: 12-23-2022 Patient encounter procedure Casey Morse III [facility] Start: 08-16-2022 End: 08-17-2022 ambulatory Franchesca Don Facility:[facility] Start: 08-16-2022 End: 08-16-2022 Patient encounter procedure Franchesca Don [facility] Start: 05-22-2022 End: 05-23-2022 ambulatory Jj C Link Facility:[facility] Start: 05-22-2022 End: 05-22-2022 Patient encounter procedure Jj C Link [facility] Start: 05-06-2022 End: 05-07-2022 ambulatory Jj C Link Facility:[facility] Start: 11-15-2021 End: 03-14-2022 Pre-admission assessment Hansa Eid [facility] Start: 10-03-2021 End: 10-03-2021 Patient encounter procedure Hansa Eid [facility] Start: 08-03-2021 End: 08-03-2021 Patient encounter procedure Hansa Eid [facility] Start: 07-03-2021 End: 07-28-2021 Pre-admission assessment Hansa Eid [facility] Start: 11-20-2020 Refill Angelo gonzalez MD Work Phone: [facility] Comment on above: Chronic obstructive pulmonary disease with acute exacerbation (HCC) Start: 08-18-2020 End: 08-18-2020 Refill Marianela Orozco LPN [facility] Comment on above: Chronic obstructive pulmonary disease with acute exacerbation (HCC) (Primary Dx) Start: 06-16-2020 End: 06-16-2020 ambulatory ANGELO RIOS [facility] Start: 06-16-2020 End: 06-16-2020 Phys/qhp telephone evaluation 11-20 min Angelo Rios MD Work Phone: [facility] Comment on above: Centrilobular emphys karoline (HCC) (Primary Dx); Obstructive sleep apnea; Tobacco abuse disorder Start: 06-08-2020 ambulatory BERNADINE WATSONMA Facility:[facility] Start: 05-30-2020 ambulatory ANGELO RIOS [facility] Ambulatory Start: 05-18-2020 ambulatory SELF SELF Facility:[facility] Start: 05-18-2020 Patient encounter procedure SELF SELF Facility:[facility] Start: 05-10-2020 End: 05-10-2020 Orders Only Yandy Craft Work Phone: [facility] Start: 03-12-2020 End: 03-12-2020 Refill Angelo Rios Work Phone: [facility] Start: 02-16-2020 End: 02-16-2020 ambulatory [facility] Ambulatory Start: 01-19-2020 ambulatory ANGELO RIOS [facility] Ambulatory Start: 12-28-2019 End: 12-28-2019 Documentation procedure Kim Rust [facility] Comment on above: nebulizer Start: 12-01-2019 End: 12-01-2019 Documentation procedure Kim Rust LPN [facility] Comment on above: tudorza denied Start: 11-30-2019 ambulatory [facility] Ambulatory Start: 10-21-2019 End: 10-21-2019 ambulatory [facility] Amb[facility] Start: 10-10-2019 End: 10-10-2019 Patient encounter procedure MYAH VALLE [facility] Start: 10-10-2019 End: 10-10-2019 Emergency department patient visit [facility] Start: 10-09-2019 End: 10-10-2019 Emergency department patient visit Myah To James Work Phone: [facility] Comment on above: COPD exacerbation (H CC) (Primary Dx); Chest pain, unspecified type Start: 03-11-2019 End: 03-11-2019 Documentation procedure Kim Rust [facility] Comment on above: bipap status Start: 02-26-2019 End: 02-26-2019 Documentation procedure Nga Serrano [facility] Start: 12-10-2018 End: 12-10-2018 Documentation procedure Kim Rust [facility] Comment on above: titration study orde red Start: 12-10-2018 End: 12-10-2018 Office outpatient visit 25 minutes Angelo Rios Work Phone: [facility] Comment on above: Centrilobular emphys karoline (HCC) (Primary Dx); Obstructive sleep apnea; Cigarette Smoker Start: 07-03-2018 End: 07-03-2018 Documentation procedure Davonte Hines [facility] Comment on above: CPAP supplies Start: 06-15-2018 End: 06-15-2018 Emergency department patient visit BERNADINE VERMA [facility] Start: 06-15-2018 End: 06-15-2018 Emergency department patient visit Debbie Erwin Work Phone: [facility] Comment on above: Pain, dental (Primar y Dx) Start: 06-15-2018 End: 06-15-2018 Patient encounter procedure Franky Steward Work Phone: [facility] Comment on above: ERRONEOUS ENCOUNTER- -DISREGARD (Primary Dx) Start: 06-04-2018 End: 06-04-2018 Office outpatient visit 25 minutes Angelo Rios Work Phone: [facility] Comment on above: Centrilobular emphys karoline (HCC) (Primary Dx); Obstructive sleep apnea; Tobacco abuse disorder Start: 04-01-2017 Office/outpatient vi sit, est, level 4 Angelo Rios Work Phone: [facility] Start: 04-01-2017 End: 04-01-2017 Ambulatory Angelo Rios Work Phone: [facility] Start: 11-25-2016 Office/outpatient vi sit, est, level 5 Angelo Rios Work Phone: [facility] Start: 09-11-2016 Ambulatory [facility] Procedures Date Procedure Procedure Detail Performing Clinician Start: 10-10-2019 Assay of troponin quantitative Myah Valle Work Phone: Start: 10-09-2019 POC COVID-19, MOLECULAR Myah Valle Work Phone: Start: 10-09-2019 12 lead ECG Myah Valle Work Phone: Start: 10-09-2019 Assay of troponin quantitative Myah Valle Work Phone: Start: 10-09-2019 Radiologic exam ches t single view Myah Valle Work Phone: Start: 10-09-2019 Assay of urea nitrog en quantitative Myah Valle Work Phone: Start: 10-09-2019 Blood count complete auto&auto difrntl wbc Myah Valle Work Phone: Start: 09-24-2019 Microalbumin [Mass/v olume] in Urine by Test strip Kim Barrera Start: 08-26-2017 Ophthalmic examinati on and evaluation Angelo Rios MD Work Phone: Start: 04-01-2017 End: 04-01-2017 COMPLETE PFT Angelo Rios Work Phone: Plan of Treatment Date Care Activity Detail Author Start: 10-26-2023 Influenza vaccination Influenza Vaccine (Season Ended) [facility] Start: 10-25-2022 COVID-19 Vaccine ( season) COVID-19 Vaccine ( season) [facility] Start: 10-25-2020 Influenza vaccination Sequential Influenza Vaccine (#1) [facility] Start: 09-23-2020 Albumin DL <= 20 mg/L (U) [Mass/Vol] Urine Microalbumin [facility] Start: 09-23-2020 Microalbumin measurement, urine, quantitative Urine Microalbumin [facility] Start: 09-23-2020 Urine screening for protein Urine Microalbumin [facility] Start: 09-18-2020 End: 09-18-2020 Patient encounter procedure 09/18/2020 Office Visit Pulmonology Al Solomon, DYNAMOTOR REPAIRER [address] [facility] [address] [place] [address] [phone] [facility] Start: 08-15-2020 Hemoglobin A1c measurement A1C [facility] Start: 06-16-2020 End: 06-16-2020 Office Visit 06/16/2020 Office Visit Pulmonology Angelo Rios MD [address] [place] [address] [facility] Start: 04-11-2020 HbA1c (Bld) [Mass fraction] A1C [facility] Start: 04-11-2020 Hemoglobin A1c measurement A1C [facility] Start: 02-16-2020 End: 02-16-2020 Telemedicine 02/16/2020 Telemedicine Pulmonology Al Solomon, DYNAMOTOR REPAIRER [address] [place] [address] [facility] Start: 10-26-2019 Influenza vaccination Sequential Influenza Vaccine (#1) [facility] Start: 10-26-2019 Influenza vaccination given Sequential Influenza Vaccine (#1) [facility] Start: 10-21-2019 End: 10-21-2019 Office Visit 10/21/2019 Office Visit Pulmonology Al Solomon, DYNAMOTOR REPAIRER [address] [place] [address] [facility] [facility] Start: 10-12-2019 Administration of herpes zoster vaccine Zoster Vaccines (1 of 2) [facility] Start: 10-12-2019 Screening for malignant neoplasm of colon [facility] Start: 06-17-2019 End: 06-17-2019 Office Visit 06/17/2019 Office Visit Pulmonology Angelo Rios MD [address] [place] [address] [facility] Start: 12-10-2018 End: 12-10-2018 Office Visit 12/10/2018 Office Visit Pulmonology Angelo Rios MD [address] [place] [address] [facility] Start: 10-25-2018 Influenza vaccination given [facility] Start: 08-26-2018 Glaucoma screening Diabetic Eye Exam [facility] Start: 08-26-2018 Ophthalmic examination and evaluation Ophthalmology Exam [facility] Start: 06-30-2018 End: 06-30-2018 Treatment 06/30/2018 Treatment Cardiac Rehabilitation Felisha Cisneros MD [address] [place] [address] [phone] [facility] Start: 06-15-2018 End: 06-15-2018 Office Visit 06/15/2018 Office Visit Cardiology Franky Steward MD [address] [facility] [address] [place] [address] [phone] [facility] Start: 10-25-2017 Influenza vaccination given SEQUENTIAL INFLUENZA VACCINE (#1) [facility] Start: 08-06-2017 Ambulatory 08/06/2017 Office Visit Pulmonology Angelo Rios MD [address] [place] [address] [phone] [facility] Start: 04-01-2017 Ambulatory 04/01/2017 Office Visit Pulmonology Angelo Rios MD [address] [place] [address] [phone] [facility] Start: 10-25-2016 Influenza vaccination SEQUENTIAL INFLUENZA VACCINE (#1) [facility] Work Phone: Start: 11-17-2014 Low dose computed tomography of chest without contrast Low-dose CT Lung Cancer Screen [facility] Start: 11-17-2014 Screening for malignant neoplasm of lung Low-dose CT Lung Cancer Screen [facility] Start: 10-12-1987 Hepatitis C antibody, confirmatory test Hepatitis C Screening [facility] Start: 10-12-1987 Hepatitis C screening Hepatitis C Screening [facility] Start: 1985 COVID-19 Vaccine (1 of 2) COVID-19 Vaccine (1 of 2) [facility] Start: 1984 HIV screening HIV Screening [facility] Start: 1981 Adolescent depression screening assessment Depression Screening (PHQ9) [facility] Start: 1981 Depression screening using PHQ-9 (Patient Health Questionnaire 9) score [facility] Start: 10-12-1979 Diabetic foot examination [facility] Start: 10-12-1979 Microalbumin measurement, urine, quantitative Urine Microalbumin [facility] Start: 10-12-1979 Ophthalmic examination and evaluation Ophthalmology Exam [facility] Start: 10-12-1975 Pneumococcal Vaccine: Ped or At-Risk (1 of 2 - PCV) Pneumococcal Vaccine: Ped or At-Risk (1 of 2 - PCV) [facility] Start: 10-12-1975 Pneumococcal Vaccine: Ped or At-Risk (1 of 2 - PPSV23) Pneumococcal Vaccine: Ped or At-Risk (1 of 2 - PPSV23) [facility] Start: 1972 History and physical examination, annual for health maintenance Wellness Visit [facility] Start: 1969 Prostate specific antigen measurement PSA Level [facility] Start: 1969 Screening for malignant neoplasm of colon [facility] Start: 1969 Tetanus vaccination [facility] End: 11-25-2017 Complete PFT Complete PFT Routine Centrilobular emphysema (HCC) 1 Occurrences starting 11/25/2016 until 11/25/2017 [facility] Work Phone: XR Chest 1 View XR Chest 1 View Imaging KEITH 10/09/2019 11:00 PM EDT [facility] Immunizations Immunization Date Immunization Notes Care Provider Fa cility 12-12-2019 influenza virus vacc ine, unspecified formulation Laxmi Perez LPN [facility] Payers Date Payer Category Payer Medicaid [id number] 2018 Medicaid [place]ICA[place] [id number] 2018-Present [phone] [address] [place] [address] [id number] 2018 Medicare MEDICARE MEDICAR E PART A & B [id number] 2018-Present [place] xxxxxxxxxxx [id number] 2018 Medicare [id number]. [id number] 2018 Medicare [id number] 2018 Medicare MEDICARE MEDICAR E PART A & B [id number] 2018-Present [phone] [facility] J15 PART A CLAIMS [address] [address] [place] [address] [id number]. [id number] 2013 Medicaid [id number] 2013 Medicaid [id number]. [id number] 1969 Unknown [id number] 2.16.840.1.864565.3.579.2.903 1969 Unknown [id number] 2.16.840.1.873129.3.579.2.902 1969 Unknown [id number] 2.16.840.1.469927.3.579.2.902 1969 Unknown [id number] 2.16.840.1.082168.3.579.2.594 1969 Unknown [id number] 2.16.840.1.066089.3.579.2.903 1969 Unknown [id number] 2.16.840.1.997859.3.579.2.903 1969 Unknown [id number] 2.16.840.1.044568.3.579.2.903 1969 Unknown [id number] 2.16.840.1.295110.3.579.2.903 1969 Unknown [id number] 2.16.840.1.171297.3.579.2.903 1969 Unknown [id number] 2.16.840.1.438834.3.579.2.903 1969 Unknown [id number] 2.16.840.1.083497.3.579.2.594 1969 Unknown [id number] 2.16.840.1.384797.3.579.2.727 1969 Unknown [id number] 2.16.840.1.138553.3.579.2.727 1969 Unknown [id number] 2.16.840.1.469478.3.579.2.727 1969 Unknown [id number] 2.16.840.1.391027.3.579.2.727 Medicaid [id number] Medicare Medicare [id number] Social History Date Type Detail Facility Start: 11-25-2016 End: 06-16-2020 Tobacco smoking status WVIS Current every day smoker [facility] Start: 1970 Sex Assigned At Not on file [facility] Work Phone: Start: 06-15-2018 End: 06-16-2020 Cigarettes smoked current (pack per day) - Reported [facility] Start: 12-10-2018 End: 06-16-2020 Alcohol intake Current non-drinker of alcohol (finding) [facility] Start: 10-10-2019 End: 06-16-2020 Tobacco use and exposure Never used [facility] Exposure to SARS-CoV -2 (event) Yes [facility] Exposure to SARS-CoV -2 (event) Unable to assess [facility] Start: 06-16-2020 Sex Assigned At Male [facility] Start: 08-03-2021 Tobacco smoking status Heavy tobacco smoker (finding) [facility] Tobacco smoking status Never [facility] History of tobacco use Cigarette Smoker [facility] Start: 01-23-2018 Gender identity Identifies as male gender (finding) [facility] Start: 01-23-2018 Sexual orientation Heterosexual (finding) [facility] Start: 08-18-2023 Tobacco smoking status NHIS Smoker (finding) [facility] Start: 1970 Sex Assigned At Male [facility] Medical Equipment Procedure Code Equipment Code Equipment Origin al Text Equipment Identifier Dates USE 1 NEEDLE ONC E DAILY [id number] Start: 01-17-2020 daily as directed . [id number] Start : 12-27-2019 Clinical Notes 12-01-2019 to 07-31-2023 Laxmi Perez LPN - 07/31/2023 9:06 AM EDTTelephone Encounter - Marianela Orozco LPN - 08/18/2020 12:12 PM EDTTelephone Encounter - Marianela Orozco LPN - 08/18/2020 11:04 AM EDT Note Date & Type Note Facility 07-31-2023 History of Presen t illness Narrative Authorization for IAN fax rec'v from [facility] requesting a copy of sleep study result with patient signature. SS result faxed at [phone]. documented in this encounter [facility] 07-27-2021 Hospital Discharg e instructions Follow Up Care 07/27/2021 11:50:22 With:Ragini SALINAS, Hansa Harvey, PUL, SHAJI Address: [address] [place] [address] [facility] (Heart & Vascular) [place] [address]- When: Unknown Comments:after his testing is completed [facility] 08-18-2020 Miscellaneous Notes Patient returned call having [...] to return call regarding fax received from [facility] for a refill on his Prednisone taper. documented in this encounter [facility] 06-16-2020 History of Presen t illness Narrative Telephone Visit Via Phone Call Patient ID: Ector Rutledge is a 49 y.o. male on the phone for COPD Patient phone : [phone] This visit has been fully reviewed with the patient and verbal consent has been obtained. Dear Dr. Bernadine Verma MD, I had the pleasure of seeing our mutual patient, Ector Rutledge, who returns to see me in my clinic at [facility]. IMPRESSION/RECOMMENDATIONS 1. Mr. Rutledge is [...] and has residual AHI of 1.2. His [place] Sleepiness Scale is 6/24 and overall he [...] last visit, he continues to use BiPAP 20/17 and has been doing fairly well. He [...] He uses a full-face mask for interface. [place] Sleepiness Scale is 9/24. He continues to [...] history of COPD (chronic obstructive pulmonary disease) ([facility]), Diabetes mellitus ([facility]), GERD (gastroesophageal reflux disease), and Hyperlipidemia. He [...] normal EF This note was dictated using [employer]/ C2[employer] Linkation Software and may contain errors that were not corrected during editing. Provider location: [facility] [address] [facility] [address] Patient location: [address] [place] [address] I have spent 11-20 minutes with the [...] Angelo Rios MD documented in this encounter [facility] 12-01-2019 History of Presen t illness Narrative Insurance denied the tudorza until patient tries atrovent. Informed patient Dr. Rios placed an order for the atrovent today. Asked patient to try it and let us know how it is working for him. He verbalizes understanding documented in this encounter [facility] Evaluation + Plan note Future Appointments Appointment Date:08/03/2021 10:15:00 AM Scheduled Provider:Hansa Eid MD Location:FT.Pulmonary Clinic Appointment Type:Pulmonary New Patient (FT) [facility] Evaluation + Plan note Future Appointments Appointment Date:08/20/2021 07:30:00 AM Scheduled Provider: Location:FT.CARDIO Appointment Type:PUL Pulmonary Function Test (FT) Appointment Date:08/20/2021 08:30:00 AM Scheduled Provider: Location:.CARDIO Appointment Type:PUL Six Minute Walk Test (FT) [facility] Evaluation note Diagnosis Centrilobular emphysema (HCC)- Primary Obstructive sleep apnea Obstructive sleep apnea (adult) (pediatric) Tobacco abuse disorder [facility] Chronic obstructive pulmonary disease with acute exacerbation (HCC)- Primary [facility] Diagnosis Chronic obstructive pulmonary disease with acute exacerbation (HCC) [facility] Diagnosis Onset Date Resolution Status Chronic obstructive pulmonary disease (COPD) acute Current smoker acute Hyperlipemia acute Type 2 [facility]: Evaluation noteNo assessment information available [facility] Work Phone: Evaluation note* Diagnosis Onset Date Resolution Status Chronic obstructive pulmonary disease (COPD) acute COPD exacerbation acute Current smoker acute Hypertension acute Type 2 diabetes mellitus [facility] Work Phone: Hospital course Narrative No data available for this section [facility] No data available for this section [facility] No data available for this section [facility] Assessments Diagnosis Centrilobular emphysema (HCC ) - [...] Tobacco abuse disorder Summary Purpose Family History Relationship Condition Age at Onset Recorded Date/T cesar Not Specified Malignant neoplasm Unknown Advance Directives Documents on File Type Date Recorded 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 Advance Directives and Livin g Will 06/15/2018 11:51 AM Advance Directives and Livin g Will 06/15/2018 8:23 AM Documents on File Type Date Recorded 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 Advance Directives and Livin g [...] Documents on File Type Date Recorded 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 Advance Directives and Livin g Will 10/10/2019 4:01 AM Advance Directives and Livin g Will 06/15/2018 11:51 AM Date Activated Date Inactivated Comments 10/10/2019 4:19 AM 10/10/2019 4:28 PM Advance Directive Response Recorded Date/ Time Advance Directives No August 17 8:25am History of Present Illness * Anne eVrgara RN - 06/15/2018 2:16 PM EDT This encounter was created in error - please disregard. documented in this encounter* Davonte Hines MA - 07/03/2018 3:00 PM EDT CPAP supply order faxed to [facility], per patient request. F: [phone] Confirmation received. documented in this encounter* Angelo Rios MD - 12/10/2018 10:[address] Bernadine Verma MD, I had the pleasure of seeing our mutual patient, Ector Rutledge, who returns to see me in my clinic at [facility]. IMPRESSION/RECOMMENDATIONS 1. Mr. Rutledge is [...] He uses a full-face mask for interface. [place] Sleepiness Scale is 9/24. He continues to [...] history of COPD (chronic obstructive pulmonary disease) ([facility]), Diabetes mellitus ([facility]), GERD (gastroesophageal reflux disease), and Hyperlipidemia. He [...] normal EF This note was dictated using RuffaloCODY Software and may contain errors that were not corrected during editing. documented in this encounter* Kim Rust LPN - 12/10/2018 1:57 PM EDT Order faxed to [employer] for titration study documented in this encounter* Kim Rust LPN - 03/11/2019 8:39 AM EST Received fax from Roger from [employer] that he spoke with patient on 03/03/19 [...] to see me in my clinic at [facility]. IMPRESSION/RECOMMENDATIONS 1. Mr. Rutledge is [...] last visit, he has been using BiPAP /15 and has been doing well. He has [...] and uses a full-face mask for interface. [place] Sleepiness Scale is 8/24. He continues to [...] history of COPD (chronic obstructive pulmonary disease) ([facility]), Diabetes mellitus ([facility]), GERD (gastroesophageal reflux disease), and Hyperlipidemia. He [...] normal EF This note was dictated using [employer]/ Dictation Software and may contain errors that were not corrected during editing. in this encounter* Kim Rust LPN - 12/28/2019 9:49 AM EST Patient left a vm that he dropped his nebulizer machine and it broke and he would like a rx for a new one. [facility] Sheila at [facility] and she will call patient. She states she can exchange it. documented in this encounter Discharge Instructions * Attachments The following attachments cannot be sent through Care Everywhere. * Chest Pain (Salvadorean) * Chronic Health Conditions: Conserving Energy (Salvadorean) * COPD: Asthma (Salvadorean) documented in this encounter* Instructions* Debbie Erwin MD - 06/15/2018 Dental Clinics We recommend that you follow-up with the dentist as soon as possible (KEITH). If you do not have one, here are some options: [facility] [phone] [facility] [phone] [address] [facility] (Dental Clinic) [phone] [address] [facility] [address] By appointment only. $40 standard fee - adjustable per household income [facility] [phone] [facility] [phone] [facility] [phone] [address] [place], [place] [address] [facility] [phone] [address] [facility] ALL Insurances [facility] [phone] [address] [facility] [place] [address] [facility] [phone] [address] [place] [address] [facility] [phone] [place] [address] [facility] Family Practice [phone] [facility] [phone] Will take walk-in patients during certain hours of the day. [phone] Will take walk-in patients during certain hours of the day. * Attachments The following attachments cannot be sent through Care Everywhere. * Periodontal Conditions (Salvadorean) * Smoking Cessation: Health Benefits: General Info (Salvadorean) documented in this encounter Reason for Referral Status Reason Specialty Diagnoses / Procedures Referre d By Contact Referred To Contact Closed Angelo Rios MD [address] [place] [address] Chief Complaint and Reason for Visit Chief Complaint Establish Reason for Visit Chronic obstructive pulmonary disease (COPD) Current smoker Hyperlipemia Type 2 diabetes mellitus Chief Complaint go over medications Chief Complaint go over medications Rt foot pain Reason for Visit Chronic obstructive pulmonary disease (COPD) COPD exacerbation Current smoker Hypertension Type 2 diabetes mellitus Additional Source Comments (unrecognized sect ion and content) No Status Records FoundNo Status Records FoundNo Status Records FoundNo Status Records FoundNo Status Records FoundNo Status Records FoundNo Status Records Found INFORMATION SOURCE (unrecogn ized section and content) DATE CREATED AUTHOR 08/20/2017 [facility] DATE CREATED AUTHOR AUTHOR'S ORGANIZ ATION 06/15/2018 [facility] DATE CREATED AUTHOR AUTHOR'S ORGANIZ ATION 10/21/2019 [facility] DATE CREATED AUTHOR AUTHOR'S ORGANIZ ATION 05/19/2020 [facility] DATE CREATED AUTHOR AUTHOR'S ORGANIZ ATION 06/18/2020 [facility] DATE CREATED AUTHOR AUTHOR'S ORGANIZ ATION 04/13/2021 [facility] DATE CREATED AUTHOR AUTHOR'S ORGANIZ ATION 03/30/2023 [facility] Reason for Visit (unrecogniz ed section and [...] AM Viviana Oneill - 10/09/2019 11:47 PM ARNOLTMyah Valle MD - 10/09/2019 11:33 PM EDT ED Notes (unrecognized secti on and content) Pt sent to [facility], room 641 B with all their belongings (i.e shoes, clothes, wallet, symbicort inhaler). All questions/concerns were answered/addressed for EMS. EMS was sent with pt packet consisting of transfer paperwork and location. EMS denies any further questions/concerns at this time. Pt and/or pt family member denies any further questions/concerns at this time. Pt sent via [facility] at this time. Pt sent with [...] and depending on findings possible transfer to [facility] later. At first he does not wish [...] file Gets together: Not on file Attends temple service: Not on file Active member of club or organization: Not on file Attends meetings of clubs or organizations: Not on file Relationship status: Not on file Other Topics Concern Not on file Social History Narrative Not on file Social history reviewed. Allergies: No Known Allergies Medications: Ector Rutledge Home Medication Instructions Prior to Surgery NEISHA:[id number] Printed on:10/10/19 0329 Medication Information Take last dose on Take [...] placement, I felt he was appropriate for [facility]. Speaking to transfer center they attempted to get him to [facility] short stay unit. Speak with the provider at the short stay we both do not feel he is appropriate for there. Therefore he was then accepted back to [facility] for proper placement, safe observation admission and [...] View Preliminary Result No acute cardiopulmonary disease. [employer] Workstation ID: [id number] MEDICATIONS ORDERED/GIVEN (if any, during ED visit): Medications ipratropium-albuteroL (DUO-NEB) 0.5-2.5 mg/3 ml nebulizer solution 3 mL (3 mL Inhalation Given 10/09/19 4564) sodium chloride (PF) (NS) flush 5 mL (has no administration in time range) And sodium chloride 0.9% (NS) (has no administration in time range) methylPREDNISolone sod suc(PF) (SOLU-medrol) Injection 125 mg (125 mg Intravenous Given 10/09/192258) aspirin chewable tablet 324 mg (324 mg Oral Given 10/09/192258) The principal secretary of Health and Human Services and Chris Street, governor of the [facility], have declared a state of public [...] in the day. documented in this encounter [facility] ED Attending Note: NAME: Ector Rutledge 47 y.o. CSN: [id number] PCP: Bernadine Verma MD History: Chief Complaint: [...] side. He had an appointment with his shear assembler who sent him down here for further [...] suspicion for deep space neck infection, RPA, CANAL DRIVER, epiglottitis, Jason's angina based on today's evaluation. [...] I consider the discharge disposition reasonable. Ector Rutledge (or their surrogate) and I have discussed [...] LAFB QRS axis: left T Inversion: aVL DE Interval: 168 QRS Interval: 88 QT Interval: 433 Clinical impression: non-specific ECG documented in this encounter Care Teams (unrecognized sec tion and content) Air Traffic Instructor Relationship Specialty Start Date End Date Bernadine Verma MD [address] [place] [address] PCP - General Internal Medicine 06/17/14 Al Solomon, DYNAMOTOR REPAIRER [address] [place] [address] Nurse Practitioner Pulmonology 10/21/19 Air Traffic Instructor Relationship Specialty Start Date End Date Bernadine Verma MD PCP - General Internal Medicine 06/17/14 Al Solomon, DYNAMOTOR REPAIRER [address] [place] [address] Nurse Practitioner Pulmonology 10/21/19 Team Status: Active Member Role Status Dates Kiki Childress DO Primary Care Provider Active Team Status: Inactive Member Role Status Dates Kiki Childress DO Primary Care Provider Active Start: August 18, 2023 End: August 18, 2023 Jazz Hyde APRN HABITAT CONSERVATION PLANNERRomi Attending Provider Act prashant Start: August 18, 2023 End: August 18, 2023 Team Status: Inactive Member Role Status Dates Kiki Childress DO Primary Care Provider Active Start: November 25, 2023 End: November 25, 2023 CHRIS Garza Attending Provider Act prashant Start: November 25, 2023 End: November 25, 2023 Team Status: Inactive Member Role Status Dates Kiki Childress DO Primary Care Provider Active Start: December 26, 2023 End: December 26, 2023 CHRIS Garza Attending Provider Active Start: December 26, 2023 End: December 26, 2023 Goals (unrecognized section and content) Goals may be documented in a n alternate section FOR RECORDS PERTAINING TO PATIENTS WHO ARE [...] BE BASED ON THE PRIMARY CLINICAL RECORDS. [facility] [employer] [facility]. provides no warranty or guarantee of the accuracy or completeness of information in this document.
== END 2024-02-06 07:57 | disposition home or self-care (01) ==
LOC: CT 07:56
PROVIDERS: PCP Nurse Practitioner Family; Visit Provider Internal Medicine
DX: R91.8 Other nonspecific abnormal finding of lung field (principal)
CPT/HCPCS: 71250

== ENCOUNTER 2024-06-24 14:11 | Outpatient (OUT) | payer MEDICARE, MEDICAID, SELFPAY ==
--- NOTE | 2024-06-24 15:44 | PM.WCHP ---
Wound Care H&P: HPI History of Present Illness Narrative: The patient is a 53-year-old gentleman with history of type 2 diabetes (last A1c unknown) who presents for routine nail and callus care. The patient admits to pain in his feet related to thick chronic calluses. Meds Home Medications and Allergies Home Medications ?Medication ?Instructions ?Recorded ?Confirmed ?Type albuterol sulfate 90 mcg/actuation 2 puff inhalation Q4H PRN 08/02/23 08/02/23 History aerosol inhaler (Ventolin HFA) shortness of breath or wheezing atorvastatin 20 mg tablet 20 mg PO DAILY 08/02/23 08/02/23 History budesonide 160 mcg-glycopyr 9 2 inh inhalation DAILY PRN 08/02/23 08/02/23 History mcg-formot 4.8 mcg/actuation HFA shortness of breath inhaler (Breztri Aerosphere) dicyclomine 20 mg tablet 20 mg PO QID PRN abdominal pain 08/02/23 Rx #12 tabs fluticasone propionate 50 1 spray intranasal Q12H 08/02/23 08/02/23 History mcg/actuation nasal spray,suspension glipizide 10 mg tablet 10 mg PO DAILY 08/02/23 08/02/23 History guaifenesin 1,200 mg tablet, 1,200 mg PO BID 08/02/23 08/02/23 History extended release 12 hr (Mucus Relief ER) lisinopril 5 mg tablet 5 mg PO DAILY 08/02/23 08/02/23 History metformin 1,000 mg tablet 1,000 mg PO BID 08/02/23 08/02/23 History montelukast 10 mg tablet 10 mg PO DAILY 08/02/23 08/02/23 History omeprazole 40 mg capsule,delayed 40 mg PO DAILY 08/02/23 08/02/23 History release ondansetron 4 mg disintegrating 4 mg PO Q6H PRN nausea and 08/02/23 Rx tablet vomiting #12 tabs pantoprazole 40 mg tablet,delayed 40 mg PO DAILY #7 tabs 08/02/23 Rx release (Protonix) semaglutide 1 mg/dose (4 mg/3 mL) 1 mg subcut .1xweek 08/02/23 08/02/23 History subcutaneous pen injector (Ozempic) Allergies Allergy/AdvReac Type Severity Reaction Status Date / Time No Known Drug Allergies Allergy Verified 08/02/23 19:42 Exam Narrative: Exam Narrative: Derm: Skin is diffusely dry and flaky on the lower legs and feet. There are very thick calluses noted on both feet at the fifth metatarsal heads bilaterally, beneath the first metatarsal heads bilaterally, and on the right heel. There is a full-thickness ulcer on the dorsal lateral foot with fibrous base (0.9 x 0.5 x 0.2 cm). Beneath the callus on the left fifth metatarsal head there is a full-thickness ulcer (0.5 x 0.2 x 0.1 cm). No sign of infection at either ulcer location. Hemosiderin staining is noted on the lower legs. Skin is shiny and scaly. Vascular: Right dorsal pedis pulses 2/4. The left dorsal pedis pulse is nonpalpable. PT pulses are nonpalpable bilaterally. Capillary refills less than 3 seconds bilaterally. Superficial varicosities are noted on bilateral ankles. Foot is warm to the touch. There is 2+ nonpitting edema of both ankles. Digital hair is absent. Neuro: Monofilament testing revealed the patient was only able to detect 2/5 areas tested on the right foot and 3/5 areas tested on the left. Vibratory sensation is absent. Achilles deep tendon reflexes are absent bilaterally. MSK: No gross deformity. Strength and range of motion are within normal limits bilaterally Assessment and Plan Assessment and Plan (1) Tinea unguium: (2) Diminished pulses in lower extremity: (3) Type 2 diabetes mellitus with diabetic neuropathy, unspecified: (4) Disorder of nail due to another disorder: (5) Diabetic foot ulcer associated with type 2 diabetes mellitus, with fat layer exposed: Plan Routine nail care performed without incident. The patient was found to have 2 full-thickness ulcers on the left foot. Treatment initiated including Medihoney and dry sterile dressing to both ulcers. He was also dispensed Tubigrip. Follow-up in the wound clinic in 2 weeks. Acute Procedures Podiatry Nail Debridement Class B Findings Absent posterior tibial pulse: bilateral Advanced trophic changes as evidenced by any three of the following: decreased hair growth, nail changes (thickening), pigmentary changes (discoloring) and skin texture (thin or shiny) Absent dorsalis pedis pulse: left Class C Findings Claudication: No Temperature changes: No Edema: Yes Nail debridement paresthesia (abnormal spontaneous sensations in the feet): Yes Burning: Yes Qualifies If: Qualifiers If:: A patient qualifies for nail debridement if they have: 1 class A finding (Q7) 2 class B findings (Q8) OR 1 class B & 2 class C findings in addition to a primary condition (Q9) Nail Procedure Nail Procedure Time out: Yes Nail procedure: other (Toenail debridement) Number of affected nails: 10 Location (toes): left, right, first digit, second digit, third digit, fourth digit and fifth digit Procedure successful: Yes Patient tolerated procedure: well and no complications Additional comments: Toenails 1 through 10 were sharply debrided without incident and to the patient's satisfaction. He noted pain relief postprocedure. Calluses on both feet were pared using a 15 blade, dermal curette, and soft tissue nippers. The calluses pared were under the fifth metatarsal heads bilaterally and first metatarsal head on the left. Ulcer present on the left plantar foot as described above in physical examination.
== END 2024-06-24 14:12 | disposition home or self-care (01) ==
LOC: WC 14:12
PROVIDERS: PCP Nurse Practitioner Family; Visit Provider Physician Assistant
DX: B35.1 Tinea unguium (principal); R09.89 Other specified symptoms and signs involving the circulatory and respiratory systems; L60.8 Other nail disorders; L97.522 Non-pressure chronic ulcer of other part of left foot with fat layer exposed; E11.40 Type 2 diabetes mellitus with diabetic neuropathy, unspecified; E11.621 Type 2 diabetes mellitus with foot ulcer
CPT/HCPCS: 11056; 11721

== ENCOUNTER 2024-07-07 08:48 | Outpatient (OUT) | payer MEDICARE, MEDICAID, SELFPAY ==
--- OUTSIDE RECORDS SUMMARY | 2024-07-07 09:03 | XMS_ITS | CCD ---
Author Organization [facility]iniSy[facility] Care Team Providers Care [place] Supervisor Name Role Phone Verma, Bernadine Unavailable PALMER, DREMA DAVONTE Unavailable Unavailab le PALMER, DREMA DAVONTE Unavailable Unavailab le VERMA, BERNADINE Unavailable Unavailable Verma, Bernadine Primary Care Provider [phone] VERMA, BERNADINE Primary Care Unavailable DEBBIE ERWIN Attending Unavailabl e Verma, Bernadine Primary Care Provider Angelo Rios Unavailable VERMA, BERNADINE Primary Care Unavailable MYAH VALLE Attending Unav ailable MYAH VALLE Admitting Unav ailable MYAH VALLE Referring Unav ailable VERMA, BERNADINE Primary Care Unavailable CECI GTZ Admitting Unavailable QUIN REYNA Attending Unavaila ble Verma, Bernadine Primary Care Provider Al Solomon Unavailable [phone] SELF, SELF Referring Unavailable DORA VILLAGOMEZ [...] VERMA, BERNADINE Primary Care Unavailable Jarett SALINAS, [facility] Primary Care Provider [phone] Al Solomon CNP G Unavailable [phone] Jarett SALINAS, [facility] Primary Care Provider Al Solomon CNP Unavailable Al Solomon CNP G Unavailable Jarett SALINAS, [facility] Primary Care Provider Jean-Paul GAYATRIAl Unavailable SELF, SELF Referring Unavailable DORA VILLAGOMEZ Attending Unavailable BERNADINE VERMA Primary Care Unavailable DORA VILLAGOMEZ Referring Unavailable KIKI CHILDRESS Primary Care Physician Jj Stevens Primary Care Physician Jj Stevens Admitting Unavailable Rodney, Jj Jay Attending Unavailable Rodney, Jj Jay Admitting Unavailable Link, Jj Jay Attending Unavailable Franchesca Don Admitting Unavailable Franchesca Don Attending Unavailable Casey Morse Attending Unavailable Casey Morse Admitting Unavailable Jarett SALINAS [facility] Primary Care Provider Jean-Paul GAYATRIAl Unavailable [phone] Jazz Hyde Attending Unavailable Jazz Hyde Admitting Unavailable Jazz Hyde APRN Attending Provider Jazz Hyde APRN Attending Provider [phone] Medications Current Medications Medication Drug Class(es) Dates [...] 12 (twelve) hours . 1 each 11 02/16/2020 Active Start: 10-21-2019 take 400 ug [...] EVERY 12 HOURS 1 each 08/09/2016 Active albuterol 90 mcg/actuation inhaler (4 sources) Start: 06-04-2018 take 2 puff(s) by inhalation every six hours as needed for wheezing albuterol 90 mcg/actuation inhaler Inhale 2 (two) puffs every 6 (six) hours as needed for wheezing . 1 Inhaler 06/04/2018 Active Start: 06-04-2018 take 2 puff(s) by in halation every six hours as needed for wheezing albuterol 90 mcg/actuation inhaler Inhale 2 (two) puffs every 6 (six) hours as needed for wheezing . 1 Inhaler 06/04/2018 Suspended Albuterol Sulfate (Ventolin Hfa) 90 mcg/actuation HFA aerosol inhaler (3 sources) Start: 01-16-2024 take 1 puff(s) by inhalation every four hours as needed for wheezing Albuterol Sulfate (Ventolin Hfa) 90 mcg/actuation HFA aerosol inhaler Active 2 PUFF INHALATION Every 4 hours as needed for shortness of breath or wheezing 6.7 January 16, 2024 10:12am Start: 01-16-2024 take 1 puff(s) by in halation every four hours as needed for wheezing Albuterol Sulfate (Ventolin Hfa) 90 mcg/actuation HFA aerosol inhaler Active 2 PUFF INHALATION Every 4 hours as needed for shortness of breath or wheezing 6.7 January 16, 2024 9:12am atorvastatin 20 mg oral tablet (20 sources) HMG-CoA Reductase Inhibitor Start: 08-18-2023 End: 06-28-2024 take 1 tablet by mouth once daily Atorvastatin 20 mg tablet Active 20 MG PO Daily June 28, 2024 8:41am Start: 03-24-2017 atorvastatin ( LIPITOR) 20 MG tablet azithromycin 250 mg oral tablet (2 sources) Macrolide Antimicrobial Start: 11-24-2019 azithromycin (Zithromax) 250 MG tablet Take 2 pills on day 1, and then 1 pill a day for 4 days. . 6 tablet 0 11/24/2019 Active Blood-Glucose Meter (Accu-Chek Guide Glucose Meter) misc (3 sources) Start: 02-11-2024 Blood-Glucose Meter (Accu-Chek Guide Glucose Meter) misc Active 0 .Route February 11, 2024 1:00am As directed Start: 02-11-2024 Blood-Glucose Meter (Accu-Chek Guide Glucose Meter) misc Active 0 .Route February 11, 2024 12:00am As directed Nsypklokve-Lemmmedy-Ogudxlny ol (Breztri Aerosphere) 160-9-4.8 mcg/actuation HFA aerosol inhaler (5 sources) Start: 08-25-2023 Bsoeqvinaj-Xoorrmda-Lgzercrn ol (Breztri Aerosphere) 160-9-4.8 mcg/actuation HFA aerosol inhaler Active 2 INH INHALATION Twice daily 5.9 August 25, 2023 8:28am Start: 08-25-2023 Budesonide-Gly copyr-Formoterol (Breztri Aerosphere) 160-9-4.8 mcg/actuation HFA aerosol inhaler Active 2 INH INHALATION Twice daily 5.9 August 25, 2023 9:28am Fluticasone 500 McG-Salmeterol 50 McG/Dose Blistr Powdr [...] 10/10/2019 Discontinued glipiZIDE 10 mg oral tablet (20 sources) Sulfonylurea Start: 08-18-2023 End: 06-28-2024 take 1 tablet by mouth twice daily Glipizide 10 mg tablet Active 10 MG PO Twice daily June 28, 2024 8:41am take 1 tablet by alvaro th twice daily before mealtime glipiZIDE (GLUCOTROL) 5 MG tablet Take 5 mg by mouth 2 (two) times a day before meals . 0 Active ipratropium bromide 0.021 mg/actuat metered dose nasal spray (20 sources) Anticholinergic Start: 03-30-2024 End: 06-28-2024 take 1 spray(s) nasal route twice daily Ipratropium [place] 21 mcg (0.03 %) spray,non-aerosol Active 2 SPRAY INTRANASAL Twice daily June 28, 2024 7:53am administer into each nostril Start: 11-04-2023 End: 11-11-2023 take 1 mL by inhalation every six hours as needed for wheezing Ipratropium [place] 0.02 % solution Discontinued 3 ML INHALATION Every 6 hours as needed for shortness of breath or wheezing 150 November 04, 2023 11:35am November 11, 2023 4:41pm Start: 11-04-2023 End: 11-11-2023 take 1 mL by inhalation every six hours Ipratropium [place] Discontinued 3 ML INHALATION Every 6 hours 150 November 04, 2023 11:35am November 11, 2023 4:41pm Start: 08-18-2023 End: 08-25-2023 Ipratropium [place] 21 mcg ( 0.03 %) spray,non-aerosol Discontinued 2 SPRAY INTRANASAL Three times daily as needed August 18, 2023 12:00am August 25, 2023 [...] Active isopropyl alcohol 0.7 ml/ml medicated pad (12 sources) Start: 02-12-2024 End: 03-30-2024 Alcohol Swabs (Bd Alcohol Swabs) pads, medicated Active 0 TOPICAL .BID March 30, 2024 9:54am pad topically BID; Start: 12-19-2019 Alcohol Prep P ads PadM USE 1 PAD DAILY 0 12/19/2019 Active ammonium lactate 120 mg/ml topical cream (11 sources) Start: 03-30-2024 Ammonium Lacta te 12 % cream Active 1 APPLIC TOPICAL Twice daily as needed for dry skin 385 March 30, 2024 1:00am Start: 08-11-2019 ammonium lacta te (LAC-HYDRIN) 12 % lotion 3 ml liraglutide 6 mg/ml pen injector (20 sources) GLP-1 Receptor Agonist Start: 06-28-2024 Liraglutide (Victoza 2-Acosta) 0.6 mg/0.1 mL (18 mg/3 mL) pen injector Active 1.8 MG SUBCUT Daily June 28, 2024 8:40am Start: 03-30-2024 End: 06-28-2024 Liraglutide (Victoza 2-Acosta) 0.6 mg/0.1 mL (18 mg/3 mL) pen injector Discontinued 1.2 MG SUBCUT Daily March 30, 2024 9:45am June 28, 2024 8:41am Start: 11-25-2023 End: 03-30-2024 Liraglutide (Victoza 2-Acosta) 0.6 mg/0.1 mL (18 mg/3 mL) pen injector Discontinued 0 SUBCUT .COMPLEX December 26, 2023 9:20am January 08, 2024 2:32pm inject 0.6mg subcutaneously once daily Start: 03-22-2017 VICTOZA 2-ACOSTA 0.6 mg/0.1 mL (18 mg/3 mL) Pen Inject 1.2 mg under the skin daily . 0 03/22/2017 Active Start: 03-22-2017 VICTOZA 2-ACOSTA 0.6 mg/0.1 mL (18 mg/3 mL) Pen lisinopril 5 mg oral tablet (18 sources) Angiotensin Converting Enzyme Inhibitor Start: 08-18-2023 End: 06-28-2024 take 1 tablet by mouth once daily Lisinopril 5 mg tablet Active 5 MG PO Daily June 28, 2024 8:41am take 1 tablet by mouth once dunia y lisinopriL (PRINIVIL,ZESTRIL) 2.5 MG tablet Take 2.5 mg by mouth daily . 0 Active metFORMIN hydrochloride 1000 mg oral tablet (20 sources) Biguanide Start: 05-17-2024 take 1 tablet by mouth twice daily Metformin 1,000 mg tablet Active 0 .ROUTE .COMPLEX 180 May 17, 2024 7:56am TAKE 1 TABLET BY MOUTH TWICE A DAY Start: 08-18-2023 End: 05-17-2024 take 1 tablet by mouth twice daily Metformin 1,000 mg tablet Discontinued 1000 MG PO Twice daily January 16, 2024 10:14am May 17, 2024 7:56am Start: 08-16-2016 take 1 tablet by alvaro [...] day(s), # 21 tab(s), Refills(s) 0, Pharmacy: [facility]/pharmacy #[id number], 178, cm, 08/03/21 10:30:00 EDT, Height/Length Dosing, 175, kg, 08/03/21 10:30:00 EDT, Weight Dosing Start Date: 08/03/21 Stop Date: 08/09/21 Status: Ordered Start: 10-09-2019 End: 10-09-2019 methylPREDNISolone sod suc(P F) (SOLU-medrol) Injection 125 mg montelukast 10 mg oral tablet (20 sources) Leukotriene Receptor Antagonist Start: 08-18-2023 End: 06-22-2024 take 1 tablet by mouth once daily Montelukast 10 mg tablet Active 10 MG PO Daily June 22, 2024 7:55am Start: 11-27-2017 End: 06-04-2018 take 1 tablet [...] (20 sources) Proton Pump Inhibitor Start: 08-18-2023 End: 06-28-2024 take 1 capsule by mouth once daily Omeprazole 40 mg capsule,delayed release(DR/EC) Active 40 MG PO Daily June 28, 2024 8:41am Start: 01-21-2018 take 1 capsule by mo [facility] once daily omeprazole (PRILOSEC) 40 MG capsule Take 40 mg by mouth daily . 0 01/21/2018 Active take 1 capsule by mo ut once daily omeprazole (PRILOSEC) 20 MG capsule [...] . 28 tablet 0 06/15/2018 06/22/2018 Active microencapsulated potassium chloride 20 meq extended release oral tablet (20 sources) Start: 01-16-2024 Potassium Chlo ride (Klor-Con M20) 20 mEq tablet,ER particles/crystals Active 20 MEQ PO Daily January 16, 2024 10:16am Start: 04-15-2014 End: 10-10-2019 take 1 tablet by mouth once daily, then take 1 tablet by mouth potassium chloride SA (K-DUR,KLOR-CON) 20 MEQ tablet Take 20 mEq by mouth daily . 0 04/15/2014 10/10/2019 Discontinued tiZANidine 2 mg oral tablet (3 sources) Central alpha-2 Adrenergic Agonist Start: 02-10-2024 take 1 tablet by mouth every eight hours as needed Tizanidine 2 mg tablet Active 2 MG PO Every 8 hours as needed for muscle spasticity 30 February 10, 2024 1:00am TUDORZA PRESSAIR 400 mcg/actuation AePB (1 source) Start: 08-09-2016 take 1 dose by mouth every twelve hours TUDORZA PRESSAIR 400 mcg/actuation AePB INHALE ONE DOSE BY MOUTH EVERY 12 HOURS 1 each 08/09/2016 Active Completed/Discontinued Medications Medication Drug Class(es) Dates Sig (Normalized) Sig (Original) [id number] 200 actuat albuterol 0.09 mg/actuat metered dose inhaler (20 sources) beta2-Adrenergic Agonist Start: 08-18-2023 End: 01-16-2024 take 1 puff(s) by inhalation every four hours as needed Albuterol Sulfate (Ventolin Hfa) 90 mcg/actuation HFA aerosol inhaler Discontinued 2 PUFF INHALATION Every 4 hours as needed August 18, 2023 12:00am January 16, 2024 10:16am Start: 06-04-2018 take 2 puff(s) by in [...] sources) Anticholinergic, beta2-Adrenergic Agonist Start: 11-11-2023 End: 01-16-2024 Ipratropium-Albuterol 0.5 mg-3 mg(2.5 mg base)/3 mL solution for nebulization Discontinued 3 ML INHALATION every 6 to 8 hours as needed for shortness of breath or wheezing 180 90 November 25, 2023 8:44am January 16, 2024 10:16am Start: 08-25-2023 End: 11-04-2023 take 1 mL by inhalation every four to six hours as needed for wheezing Ipratropium-Albuterol 0.5 mg-3 mg(2.5 mg base)/3 mL solution for nebulization Discontinued 3 ML INHALATION EVERY 4-6 HOURS as needed for shortness of breath or wheezing 90 November 04, 2023 11:21am November 04, 2023 11:35am Start: 08-03-2021 End: 01-30-2022 take 3 mL by inhalation four times daily albuterol-ipratropium Inh Jamilah 3 mL UD 3 mL, Inhalation, QID for 30 day(s), 360 mL, Refill(s) 5, [facility]/pharmacy #[id number], 178, cm, 08/03/21 10:30:00 EDT, Height/Length [...] J44.9 . 150 mL 6 06/17/2019 Active amoxicillin 875 mg / clavulanate 125 mg oral tablet (2 sources) Penicillin-class Antibacterial Start: 04-28-2024 End: 06-28-2024 take 1 tablet by mouth twice daily Amoxicillin-Pot Clavulanate 875-125 mg tablet Discontinued 1 TAB PO Twice daily 13 12April 28, 2024 1:00am June 28, 2024 8:30am aspirin 81 mg chewable tablet (1 source) [...] / glycopyrrolate 0.009 mg/actuat metered dose inhaler (6 sources) Corticosteroid, beta2-Adrenergic Agonist Start: 08-18-2023 End: 08-25-2023 Stowphbqgr-Czpmhapu-Gigtrvqu ol (Breztri Aerosphere) 160-9-4.8 mcg/actuation HFA aerosol [...] Active dicyclomine hydrochloride 20 mg oral tablet (6 sources) Anticholinergic Start: 08-18-2023 End: 11-25-2023 take 1 tablet by mouth three times daily Dicyclomine 20 mg tablet Discontinued 20 MG PO Three times daily 60 30 August 18, 2023 12:00am November 25, 2023 8:38am docusate sodium 50 mg / sennosides, [facility] 8.6 mg oral tablet (10 sources) Start: 08-16-2016 End: 10-10-2019 senna-docusate (SENNA-S) 8.6-50 mg Take by mouth. 0 08/16/2016 10/10/2019 Discontinued doxycycline monohydrate 100 mg oral tablet (3 sources) Tetracycline-class Drug Start: 02-10-2024 End: 03-30-2024 take 1 tablet by mouth twice daily Doxycycline Monohydrate 100 mg tablet Discontinued 100 MG PO Twice daily 13 12February 10, 2024 1:00am March 30, 2024 9:46am 0.5 ml dulaglutide 1.5 mg/ml auto-injector (6 sources) GLP-1 Receptor Agonist Start: 08-18-2023 End: 11-25-2023 Dulaglutide (Trulicity) 0.75 mg/0.5 mL pen injector Discontinued 0.75 MG SUBCUT every week 2.5 August 18, 2023 12:00am November 25, 2023 8:38am fluticasone propionate 0.05 mg/actuat metered dose nasal spray (20 sources) Corticosteroid Start: 08-18-2023 End: 03-30-2024 Fluticasone Propionate 50 mcg/actuation spray,suspension Discontinued 2 SPRAY INTRANASAL Daily January 16, 2024 10:13am March 30, 2024 9:46am Start: 06-04-2018 End: 06-04-2019 take 2 spray(s) nasal route once daily fluticasone propionate (FLONASE) 50 mcg/actuation nasal spray Instill 2 (two) sprays into each nostril daily . 16 g 12 06/04/2018 Active Potassium Chloride (Klor-Con M20) 20 mEq tablet,ER particles/crystals (6 sources) Start: 08-18-2023 End: 01-16-2024 Potassium Chloride (Klor-Con M20) 20 mEq tablet,ER particles/crystals Discontinued 20 MEQ PO Daily August 18, 2023 12:00am January 16, 2024 10:16am Start: 08-18-2023 End: 01-16-2024 Potassium Chloride (Klor-Con M20) 20 mEq tablet,ER particles/crystals Discontinued 20 MEQ PO Daily August 17, 2023 11:00pm January 16, 2024 9:16am Start: 08-18-2023 Potassium Chlo ride (Klor-Con M20) 20 mEq tablet,ER particles/crystals Active 20 MEQ PO Daily August 18, 2023 12:00am predniSONE 10 mg oral tablet (20 sources) Start: 11-25-2023 End: 02-10-2024 take 0.5 tablet by mouth once daily Prednisone 10 mg tablet Discontinued 10 MG PO daily December 26, 2023 9:20am February 10, 2024 12:17pm Take 40 mg for 2 days, 30 mg for 2 days, 20 mg for 2 days, 10 mg for 2 days, 1/2 tablet for 2 days Start: 08-18-2023 End: 08-18-2023 Prednisone 10 mg tablet Disc ontinued 10 MG PO As Directed August 18, 2023 12:00am [...] 10/10/19. 10 tablet 0 10/10/2019 10/10/2019 Discontinued Semaglutide (6 sources) Start: 08-18-2023 End: 08-18-2023 inject 1 mg by subcutaneous injection every week Semaglutide (Ozempic) 1 mg/dose (4 mg/3 mL) pen injector Discontinued 1 MG SUBCUT every week August 17, 2023 11:00pm August 18, 2023 7:50am Start: 08-18-2023 End: 08-18-2023 inject 1 mg [...] 11-25-2016 11-25-2016 Chronic Diabetes mellitus without complication (14 sources) Type 2 diabetes mellitus; Translations: [Type 2 diabetes mellitus without complications] 08-18-2023 Chronic Disorders of lipid metabolism (11 sources) Hyperlipidemia; Translations: [Hyperlipidemia, unspecified] 08-18-2023 Chronic Disorders of teeth and jaw (5 sources) Toothache; Translations: [Dental abscess] 04-28-2024 Episodic Disorders of teeth and jaw (2 sources) Other specified disorders of teeth and supporting structures; Translations: [Other specified disorders of teeth and supporting structures] Onset: 06-15-2018 Esophageal disorders (3 sources) Gastroesophageal reflux disease; Translations: [Gastro-esophageal reflux disease without esophagitis] 01-16-2024 Chronic Essential hypertension (11 sources) Hypertensive disorder; Translations: [Essential (primary) hypertension] 08-18-2023 Chronic Gastritis and duodenitis (5 sources) Gastritis; Translations: [Gastritis, unspecified, without bleeding] 08-18-2023 Episodic Nonspecific chest pain (1 source) Chest pain; Translations: [Chest pain, unspecified type] Episodic Open wounds of extremities (6 sources) Unspecified open wound, right lower leg, initial encounter; Translations: [Injury of right leg] Onset: 02-10-2024 02-10-2024 Episodic Other connective tissue disease (3 sources) Spasm; Translations: [Other muscle spasm] 02-10-2024 Episodic Other connective tissue disease (3 sources) Foot pain; Translations: [Pain in right foot] 12-26-2023 Episodic Other connective tissue disease (2 sources) Other muscle spasm; Translations: [Spasm of muscle] 02-10-2024 Episodic Other diseases of veins and lymphatics (5 sources) Vascular insufficiency; Translations: [Venous insufficiency (chronic) (peripheral)] 08-18-2023 Episodic Other diseases of veins and lymphatics (3 sources) Peripheral venous insufficiency; Translations: [Venous insufficiency (chronic) (peripheral)] 03-30-2024 Episodic Other diseases of veins and lymphatics (5 sources) Venous insufficiency (chronic) (peripheral); Translations: [Venous (peripheral) insufficiency, unspecified] 03-30-2024 Episodic Other screening for suspected conditions (not mental disorders or infectious disease) (11 sources) Patient encounter status; Translations: [Encounter for screening for malignant neoplasm of prostate] 03-30-2024 Episodic Residual codes; unclassified (5 sources) Sleep apnea; Translations: [Sleep apnea, unspecified] 08-18-2023 Chronic Residual codes; unclassified (4 sources) Sleep apnea, unspecified; Translations: [Unspecified sleep apnea] 03-30-2024 Chronic Screening or history of mental health and substance abuse (16 sources) Tobacco user; Translations: [Tobacco abuse disorder] Onset: 11-25-2016 11-25-2016 Chronic Skin and subcutaneous tissue infections (5 sources) Cellulitis of lower limb; Translations: [Cellulitis of unspecified part of limb] 02-11-2024 Episodic Spondylosis; intervertebral disc disorders; other back problems (5 sources) Low back pain; Translations: [Low back pain] 02-10-2024 Episodic Substance-related disorders (17 sources) Cigarette smoker ; Translations: [Nicotine dependence, cigarettes, uncomplicated] Onset: 04-01-2017 04-01-2017 Chronic Unclassified (20 sources) Obstructive sleep apnea syndrome; Translations: [Obstructive sleep apnea (adult) (pediatric)] Onset: 11-25-2016 11-25-2016 Chronic Unclassified (1 source) ERRONEOUS ENCOUNTER--DISREGARD Past or Other Problems Problem Classification Problem Date Documented Da te Episodic/Chronic Other lower respiratory disease (17 sources) Paroxysmal [...] Facility HbA1c HPLC (Bld) [Mass fract ion]on 03-30-2024 HbA1c (Bld) [Mass fraction] Hemoglobin A1c/Hemoglobin.tota l in Blood by HPLC [facility] Aerobic Cultureon 02-10-2024 Aerobic Culture Right lower leg wound Result Tab Codes Light Normal Skin Breana 2 Days Right lower leg wound No Anaerobes Isolated 3 Days Right lower leg wound Gram Stain Result 1+ White Blood Cells No Bacteria Seen PERFORMED BY: [place] [address] PATHOLOGIST HEEL SORTER GAIL KAUFMAN M.D. Normal [facility] Comment on above: Performed By: #### A BANNER #### [address] Aerobic cultureOrdered By: Yazan Hyde on 02-10-2024 Bacteria identified Aer cx Nom (Unsp spec) Aerobic culture [facility] Bacteria identified Aer cx Nom (Unsp spec) Aerobic culture [facility] Anaerobic cultureOrdered By: Jazz Hyde on 02-10-2024 Bacteria identified Anaer cx Nom (Unsp spec) Anaerobic culture [facility] Bacteria identified Anaer cx Nom (Unsp spec) Anaerobic culture [facility] Gram Stainon 02-10-2024 Microscopic observation Gram stain Nom (Unsp spec) Right lower leg wound Gram Stain Result 1+ White Blood Cells No Bacteria Seen PERFORMED BY: [place] [address] PATHOLOGIST HEEL SORTER GAIL Chaudhari [facility] Comment on above: Performed By: #### A BANNER, #### [address] Gram stain microscopyOrdered By: Jazz Hyde on 02-10-2024 Microscopic observation Gram stain Nom (Unsp spec) Gram stain microscopy [facility] Microscopic observation Gram stain Nom (Unsp spec) Gram stain microscopy [facility] HbA1c HPLC (Bld) [Mass fract ion]on 11-25-2023 HbA1c (Bld) [Mass fraction] 8.4 % [facility] Physician Orderon 03-28-2023 Physician Order [id number] 85#1.00TIFF [facility] Consent for Treatmenton 11-26 Consent for Treatment [id number]#1.00TIFF [facility] Physician Orderon 12-23-2022 Physician Order [id number]#1.00TIFF [facility] XR Chest 2 Viewson XR Chest 2 [...] mGy = . DAP = . Normal [facility] Consent for Treatmenton 07-26 Consent for Treatment [id number]#[id number]:127 Normal [facility] Physician Orderon 08-16-2022 Physician Order [id number]:127 Normal [facility] XR Chest 2 Viewson XR Chest 2 [...] in mGy = na DAP = na [facility] Coding Summary.on 05-30-2022 Coding Summary. CD:[id number] bWw+PGhlYWQ+LA7HTKD iW73yxJTkrK9gJ0CMVA lOSywgQVBQTElOSyIgb dQyWK4waSGbXNIa IC8+NR3dMXTrWirvlAJ fi4U4eXN2E45dvo9rYE mlhPD3SGNaUcBhontow 9wosIk7BQhkVbwfUpDc OTAhmG99HYQ8jF11Qv3 1zTDowPLvj2kzjRc2Qv KqJNBtJNS3iYzrSBdpd 9PcUQDuZ85icFKdh4Y4 IGNvbGxhcHNlOyBlbXB 2nF6yAScymzcgi2vfnx gdLci3rc92qUMer2B2r JV0U8CbrrP3QDQerMIu OyvjpURTkA5vnwmlh7r ugjbhZbGoZXJwIQa3ZM k4NXGsaVviOcSfBK39U NP9XJYomdMkO2PtEKJb yImzZuP2e2F6Ra3CU3V LHibcN7YMWCYCCPdonL Q+GP49yi88C1EuVwfdA qi6TRHoGXR7fHG5xB0v FFHgTPqfu5N8mHD4B1C ndlHaif5uk8wuEUHlAS erO87tmXYgq0W6PTNwj AW8DTYnpCuiFtTrjQ66 Oyc+FLGefBpgj6KsMao fu9bdq6xctBj3IyznWL PbsqRziBdqXMR4l2GcA z0vXGZsiHK7mHQ5oN7d CnHpNhW3FIglY399DbZ ezLFqEwnkW63aV9IthX A+RJFtPzw2PAGweZkwF D7qV5FyYHQndipatVJj yTqgPU3tEJLzimfoSCF grX3uMDBkU5x4KuYcMb J7GRlbN7CaMZPrdqcjO h10qF1xOeBqHgX2AQuc O3IqvqD3XQJyfEEuAJj nVJI8X77md0Q8UQGwDU SrUTG9aPO0dY7wgChnb jogbGVmdDsgdmVydGlj ISuiHKsmF541TGOztVu nPkNvZGluZyBEYXRlOi AgMDQvMDYvMjAyMzwvd GQ+YFFpOYN0bZmtWGTj xTScACbfUf9pzAyqkMw kPL8dBSByxpvuGSNkeS 3jSABpvDRmmUlaLG0rQ MLbtobdg508FhFvALE8 XBXubQQmH9QlbM0jEdY uCCCgUYTkN8UtwBYlXS hoW464RAvhUeM5RVEox iWhE2NiSDYviQlaUkG2 s4K5Hv4Li3QpjgqlB0T ziTKeCzWoPiogWZv9A4 RkPjwvdHI+PH52KQHwF L02MRa6FHA4cHekSUpg HFZlQ7VjwG6eCkChLGW kZGRkOyc+PHRhYmxlIH dpZHRoPScxMDAlJyBzd KsgYL2sZe1iYPFrERBt eFrpoZKxFtTfk4exFTH lNHpfZP5tvPhjX8CkzV M6QDQxh0c7Sg81B92tL 3JvdXA+BGCprKJ3wUH7 jJ6pUvEvXnL8EUmnY10 3ZgSmvLRuQymaa4mel6 odhZz4CbS6QVObkxNmy OnmWIT2n8CvDt96L82h IHdpZHRoPSIxNSUiIHZ jyPrkch6dsW0yMj8+PG IbzOW1jYZ3nY6oNwEaR eG3YBpyA853RoVvkNEi Waovc1jdk5pyhKy1HbX aBKYfanFmlKecPPW0c3 CgHb24X0MejKjna9BfW ip8ik22iVGiy5F7wWK4 Z3AwCBHmeviuvOSqgVx uUM2jJASyyurzTSGpoV 8kQGIcD9t2DuZcGwE3G OstQ5IjtnD1WRQzvBCf EDXxaDYErM0vbocjc4n mdqioIuOgYBBlWLa8HK h1KOJynGqwHuFsKOV9M iC4ZWJ2tCCwwG6tvVze fuqwnD4jIxi+GVF6yLV oxNFWXR7tTdhsnJS+PH KhHHQ1eKhsQFvcLZWcj D5kJCLxZ6k2BdUfSuY6 KXvnH7IdlsF8KAQqmOE fAFOewGNXkN9uutqkj5 prmhilItHzDGPbFBo6A Sw5TRFkoHcjOvDhGWE2 SsB3BYK9kSZldI4oeMe ipybygH4iHbl+QmlydG tfUHY6VRl0Q3XkIgh5C LQmdIcrRR1boYOnVBan Dx5efXvwwZorIJ5aAFI umfqox917BfQpc9qgHL MyjDVhVWreFVB7A12to 2W5DEGeUTVbFDP6oDY9 yQ5aoLabdrjahMQijZz gdmVydGljYWwtYWxpZ2 77TJByfFqqLrYkXWk0C 0TsZaa4QLAyeYyeII3s kQVrAOamIb1epZlypPn xSL6gQPDfzyxwz062Rf Tdg0efGDUsbQLvAHjsX IU3P51nq7H3FKSkQCCx PEN9uAP5eY2ibWlrgyj gbGVmdDsgdmVydGljYW ylPDlfV700LJGwgScyF uDjxEu7K7RxEvq7JXXh yJamWK9bzVOcCXzfMt2 trCnonXfbLC9vFIIdnl ymo559EwDct3tkLZPjj OCiCHfvRFZ2B44it8V8 CDDzIEPtZCY4wRS8fJ8 hbGlnbjogbGVmdDsgdm EldRxlIXcxTJtwE217O HRvcDsnPlBhdGllbnQg YWpiABe8B6FzVepnsNN +GQ87GVMsDN40oFYxxM Vky5wxuBg1UbWsKWVzZ WP3yTdnAJcsl8JuQTMe N24jdRWpf3A3CAHcuYa vbGIzUgGotPB0rU9rMW kxsmdjj3dpzzroAczgx 3sevr66rZ87U44bHWis ZHRoPSIzMCUiIHZhbGl rmm3lnI8dGn3+PGNvbC H9aIC7wT4kSCVdFdE7D EagA755WaMssKKmTpkc x2zxe8ruoNd4QeI2PSS mivXgrCvmAUT5b8WoNw 48W34hGXelJAQbLBAjC GYpLEEurPxtvs4dmM7y Ii8+YZIleUS0zUU2cR3 kFwKfSiX0HMvdD205Xe LptUMtOacoH22gV9Pfg XA+IRVxVbr4TYKhgWre PA3jmKFzEOseYm9yVEL 6PwHlUvAhHKpeH3McVX OpbbkjgcyucCZ6JHGrP BHowI17Wb4evBnqTKVd lXXPgV1bdjncf5jtuml jSeXqHWMgJOb2EEp3GM UpnRjpEiHzLVY7ZnG8J QB1bCHyrY9psFtsrogk aG4xO9TtJCUplyvkLe3 8eF8xWkEoDkJ4EAhpUx c+QkVITktFIEpyLCBUS O6DJWLkAGeAIY35T5Ry Xss3VEBmjSddAE6eqDH yBCrzVt8gpPffbYdbEC 9iLTSikkzqJBCtpQ4wA DPlxRCrhRzlRP5rXEPu lcgmk109PdSeOKS6CKJ ihGFuM1VikQ4gYjVrGX ZtIYCxN7PnnFFkKHvbI 525XGxiXyF4YIAupyXi V1EmFDTvzJjiOgB9m0C 7Cg7vKS4uWS6aYDteCG 82JD80rAHvh4X2iKU9Z 8KxTPZrcpzdbabhsOA7 AMJwONEecN85cVJdOQo sIe1wk2L7s498DCOyHI KcsU56Zl5osVuaJFRtj OIRoQ7svsrsh9ulxjru HkJqWUAxYQe9FHj4MEV wfWxeKoIaRZV0BcF4SA Q9dOQzxI4uwDithhcdt G9wOyc+NTIgWWVhcnM8 J4CqZql5EHFwiKlrVV6 nnDVmPVmlTt2ruIhqbL lsCM4hKGFtfvldNYGpp M1iFMEobDPmlLxpTL5e MYYilavsr958AxRjAPY 4UPLduTDaG1ObcO0cNh ShKJVfFLIfI3OlvXFbE SnqE748SDzbWrK8PERn coAjH9VtJQDnaRzfNoD 1i6L0Ib0EBYtcTC94HN 66hOXxt2H8dUR7O7UxZ TMztjjlbuvnqBD0DHJw KSGfhU21lBVhICewBv2 hp7K9c730SETqLDJiyS 17Zl6rhTgyQGRewJVMj B3oplyfs7iwmlfgCmLf PQZoKXy2TKd9BJZseKn kYuGvNJN9UxB0HVZ4fK OmeE9pbYqgctxciM3vY yc+X8Q6xBZ9rFDbpHgw dGQ+DJ53px95W8CsLqg oLlp6UUCsOGS0rBH2oX 5oKIUaGNkgl8E6wPF4U 7FjouUdfs4au1saIIAf ZHtyY42viZEgo1E3TKR nqGO1OKJpdUtrWiBadC 93Oyc+FERvcOrjp2MrY yhvg9umf9inpQr9XfEn QBYhgnTggDfxXQL1g4Y cUv04R23fWUgzZCKxAQ LlXJXyTQFmpPrbgf9bk G9wIi8+KHWtnRQ0bNB5 sN8mUiJiLuL5HUnyH59 5FdTgoIOiCbsjx8cwq0 veuBh8PlDjEXYfyzPnr GguMCU8o3HdPr62N8Zy kVbdv4TgSyx0hg37fUF py2E1lRT2I1DuXAGjto ucgQCikQdiLE8vBNUho pntVGShdR0bDBReV0r3 FjTyAeI4CKnhQ1KooeN 6IGJvbGQgMTBwdCBUaW 7ztmetg0okauixYoRlX QVlIBl8DIn8XWPfcKag BfViBRC1LrP9QXL5dNG wiN3pwUzeizaaaQ5sRr c+OGy9m1kycAPcVS7eo YA7BW56IB87cCHry5U4 lKC3H5TlUPHkbvypwue wjTJ8BPMmLYXsgV79Zo 2nlRisFr9mWDZlIMQ5B VKvcVLnA7LosE4vPcJg APMpIBMmM9ZitGBmQEc pG220OZteFtM1APYvzh MdS4IoAGYghVaeNvN7g 8P8No0SYA73MX04CN28 hAHwm8Q4bMM3H9KeWIF yuvvgkowahRZ9PMWjRM NvhU40Zh0qoOujRo8xX CCjEFU2CZDyqIUrO0Oz vW3dExGlQYRjMFBoO5O irAGaAIofP175GMmmAi J0VOWukcJjG7XbCZQay OzoItY1x1M0Mf7NKh79 MI87PD10iXNrf0O2aYX 7Q8AiFKGhvaqiercksM U7RXJkFPUhiB69Xj3wd EtpNh6aBNSbESP3FHQe fBPcL7RknZ3hOnDwNOW cEIWfO4NywGAzVHayI5 51TDfkIaU1EYKaioTkB 6CbQOQmxCxrPcU2p3N9 Ej6PZYyxynp3D5EuBvd vdHI+VQ97WKPeOF29hV CiaMCrd5yxqFf2KvNcG AItSHD1sKotPDlqp2Cr IMMsD22b (more content not included)... Normal [facility] Consent for Treatmenton 04-25 Consent for Treatment [id number]:127 Normal [facility] Physician Orderon 05-22-2022 Physician Order [id number]:127 Normal [facility] XR Chest 2 Viewson 3 XR Chest [...] in mGy = na DAP = na [facility] Coding Summary.on 05-15-2022 Coding Summary. CD:[id number] XCm1gHh+PGhlYWQ+PE1 RWUIlY31ouAFfiL4qW5 NMTElOSywgQVBQTElOS jBnvtFoJO0agYUsWRGu IC8+JN2dSBSpQjkepNJ jo6H4vFO6O02mio5cZY pwxUP0PEKsMcDukxcar 3lblCq4MZkqQvpaSjDa OEWwdW18XOS7mO48Zi6 0gVTwzHHld5upgCq7Ao GbJRIzCSZ4hWujWTqep 6EkQRUpU74twBYvr4O6 IGNvbGxhcHNlOyBlbXB 2kX0uQFetvgvqc2htwb ycMvl1ex78bWGer4N4s IE1X3RyhzJ0ABCsfTQx SrggqTPPsG7nlxokg0h hhsiyRyFbEFQtCSe1IW s2REBbhWyaGeFaGH26U ZU2UOSivrYrN1OfSMAc jZksHzV0b0E6Gz1EC0L OWobpE8OKNBUSDUadmK Q+ZT79ex00C6LjXhxlU sf6PTUoOLL2rCT9aC9v CMIpJNolk1W6rOI2T2N lzsBese5ki0ocBLJsEC buC25tiUQky6I2CUKdg QS5NHLjsFprYmTaaZ31 Oyc+KNZsrHikx2UkFjj cp3umb8nybMh3CknzSE QtenGbsXsbLRC1z7MhC o6tQILydQK5wMV2lO3y XvArHhE7HJouV423WzP rfBNmYlncW35xY4NgwH A+QJMlEvg9XXZrvPskP M3yS5LuHLGnkrimhNKs zUcwYB3tUFCdhaweBMB wlP8hEOIbH7j0XcKzEf K7LIqzD4OkWYOzcdmcY m13jS9iEuOxZqR4HDwg W5PzghJ6YLLwfANrEKg eCSM4L70of4C6IGPcJG YhOQJ6lSM0vX9zsRdxb jogbGVmdDsgdmVydGlj AUuaTJkjB019HWSicMa nPkNvZGluZyBEYXRlOi AgMDMvMjIvMjAyMzwvd GQ+TJMdFZR4zEjmOVTf jWRxTOllBo5wlJhlsXo qUG9wAPDmwflwJZWnlU 8xCLArbKSwwHsqZJ7gC KGbqdbcq960WaOgAWP4 MNVbdLGnZ6QwuB3cMrD sRHEiZUGxC5KdkNFiAH hlW507FIqtPsL3MRLjf nEmU9GcHNLesWrsNiT7 v0Z2Bq5Qa0RoecsyL4P kxYBvMhXaFcxdXPs3L2 RkPjwvdHI+AG88AADeM I40GEn1ALI6cJaaWGui RJUzT9HrrT5wOpEuSOY kZGRkOyc+PHRhYmxlIH dpZHRoPScxMDAlJyBzd XqtEN2lHh4jGRZvTGNt eUxkeSJdFoCzl4jjVMY gMXeiNI1nbDliF6CrbU M5ASUuu5u9Sk87X41jE 3JvdXA+EWNxwYN0oPM3 wX6jJfVnIxQ9LWgdB10 7BqHncIMdJerar0znt2 craSh1IaU7HIUddsEtc UuxQFM0l7XwCb56H96a IHdpZHRoPSIxNSUiIHZ ofJuoxf4pbN6wUy0+PG IydUI2eNA9rH5kPaOjQ oR4JKjpP387OhWhhSFt Xftah9ope4epzLe8JfD dFSKshaTgkDzaEDT4q2 AgYu39Q8TeeFcbw3ExJ sm5qp73sCSud2N3pEB0 L5MjWHUrjrczaDZgaFr mQE9lPEGiiragMKCkwZ 7gEGTeA9v3NjZwLvF2T SaeB6EiknL4TYSisXCp OJYwyBRFwH5rqebjn7a scmfgTwKdKLXaEEo8JS c0UAYqdVycIjSfCEL5X wM9LAG8zSRknU0ieUjc biadkS5uJfh+BGH9nJF ifQYCPJ9yWvemkQB+PH ZwVKI4mQdcLShyRVKkn F4iBVJuI5i2WkSuQkA7 UEdeZ8BhqiF2POJefQU oULOqwDMXnF3ovyqbs0 mqtgaaNxBwXXOdFNf8T Ey9OMDmuHbfLuCvONJ3 BzV6PIH3pKZpeS1amKn rrhhrrL0sFml+QmlydG orDPW2AYw8A4ScBvk3S NKcsOckOT1erQXhSUjg Ya5mdTbrwYpjTT6yYUN eznfgj866RtGgw7tyKJ LlgPByOQiePPH6H74tp 6G7LZBvWMFcVLH1yQC9 yJ1ybJcqugpfhLRnsNo gdmVydGljYWwtYWxpZ2 26XQEepHuoHlBaFYw5L 1AmYup6UEFfcHetMD2d vIDpYKnjBz6bjPzrhGl uVM1lNHVmrfobc028Pm Oyk5abJBBplXZuUPweS LU7O98jf0H2CZMxDSGs SNI7rJI5vJ2zsRvvqyu gbGVmdDsgdmVydGljYW eaVTtjC623FQRgiKckP bOcmPu8N4EsDks8TTNa pHykQK2ieVPhSRxtEa7 rdBpdlLktFR4eMKAjtg cuk067ImNvf0rqJEDot DRxBJlaINJ4U92lw9K0 PUNbFSNzPCA2tMG5wG8 hbGlnbjogbGVmdDsgdm NwsLzuOHhnTFliM548A HRvcDsnPlBhdGllbnQg AVqlAHt2Z6YxLvauzSX +KL03HHEiOA21yPBcdM Tvf5czoJn0XyGlQSYtU OO4gIukUMudz8JmTOVv F03jbRUtn2B8SNQubUu tjIInJxExcVD1bO5tSC fjsgufj7emuwknNmcwi 1sact38qF94C57uICup ZHRoPSIzMCUiIHZhbGl zxc3qcM0sPf3+PGNvbC T4rTL9gI2tZTDxTiW8C DzqS570XyIihXKaQzpy i5luk5pvwYg6RuB3SRE fzuSioNknDIU5z1YiNc 68A69cIJmsYOPySDRhH AXkHGFlkApfaw7koR3m Ii8+WFVjeYF8eJY3yO5 sSkIpKeH6KXajU039Jf RspEJrCmeuT63eE8Dcv XA+WIQbAez9PFHmiJpz RD2slSYsCJxyXt3jBEA 9EtDkYtCxLVdkI8QpAN KxglxautkubOS2MYNfI NOcvU55Ef5zhKrvPFAp rJWUuQ8wjrzgv8mzajf lKqPbUHVoXLh8DAt0KQ VwiHpbHaDmEXH5ZnO7N PZ4nTHxyO0tuBzjlzkx sM7gW2VgHAKkjzwrFp9 6vN9rBpNfElC1BVfsGw c+QkVITktFIEpyLCBUS U2VPGEeNQwVJB74L1Uj Rbw2EKCplToiCE3haWO oVEvaNb4trQragBrcBF 7hCXQhmhhxOJQoeZ5qX KFtvPLhcXwcZX6sNJAi ikflj020FbWjQLM0TLU vmJZkT7TacI8cPsQgGA DjJTDnR6ItkYYcRXmdZ 731TStjXiQ5NJCavhUi S6HfXSCjlKtaCaO0n0A 8Aj4yWQ4kZP5iSFtjHS 72XR24rQPpr0H7kJA0X 4LzHBMspmmfgzhmeVP3 QGZzYCJktE56uKKyGLu aWw4oc0L4l595YBHvPZ FjuR52Ks2tgTwwTGQku QCSjC4edrgvg4vwaoki RcRgADDzRSk9ZQw9XHS yoZlaSaHbIYS0OqP9IH Z9oINsnR7naMdhvmtsj G9wOyc+NTIgWWVhcnM8 R4FmGza2YXPptJlpVY2 kdXCgATzvLy1nvCswoF jlHR8aPRGgebcfIKKpz C6yUMXrxNMllXffDL8j SNQijizks060NyYvLJL 0OQSivHUhA5PolH9qGx HqVXJgKGLiZ9HzaEYyP SqiK418CCtuQrR4ANDx txJtI5TvFPKwtCmjCoW 2i9I1Rj6HIPgkDX17DT 94aBZyy2F7oGG4F7FnV TWeiawojckcpVR9HDIz UEGvyC60mHLlZUcpKi2 rv0Z5y300VLIrOUFhjC 98Wr9tvMsgBZVgdNFRn A3nkzfhc4bklkltQiHa FJBwJPv4XSv9JQSlhOr pPtLzBXU2YqY4MUD3zX GwvS0heNwgpwowwZ1mE yc+C9I9mKP0zPFqwHfu dGQ+HK20wc89T3PsLwk mZtc7QDVuMZJ2jLC7aA 4nEYIyYKcnb7I5uUI7L 0NiepDrsz6gs7exEBCe XLjcB41azQPsw6H1BNT pdLH6IAStnThyLgWlzC 93Oyc+IITisFqnz3LvO mrof5yia1fsnId9DjSd DMGjyfDkxHgsWIU2w6O yXa49K39aWMztBSGuRN CxVHThWVLkcVnfmj4qe G9wIi8+DNFuhTM7pEN6 wR0rIzIxPsA8UQqlJ66 3NmZrjGFcAipxz5mju5 qsaBd5XkFaLDDrqoJdu EenCJW8f2FwLy77Z4Zw cGsyk3HyUml0yf64fFH st9V1gZU0P6JgUOUdzy uycQWegPrvOG5iUQYgb jvoRHOwcW3cOQOgA0i9 MyYkVfD8HCpbO1VfoyB 6IGJvbGQgMTBwdCBUaW 5vyeyvk5tymnekUdMyE QZrOPm5ECf8ESLyqSts QySkAAI0LcM7QDK3jCE knB3vbWopwsgcmI7oOa c+JIa4e7izhHTdHO1nn DG2UI81DX09mEKyp4C9 aJZ6E3PfZKRndqrcssi hjKP7FHTaRRIvqR89Xg 7wnTbxLz3uCREoBAJ6H JWikXLyO6KizB5oNxKv XSEuJRLrN1MqiBJiNFy mK543SHhgSpI1XIDkdf CpR7LyQLTfsMrkXfY4w 0W3Jz6GOL30DJ73EM98 bSUzw1J5pID5H4KtADN bdxwfngupgEF0WMWhQQ SydO63Ls4dnDodCn5pP XXrZWV6JSQlfOViD3Fn fV0cMjEgAWLqSJTqB7Y viLWwLVeuR218XDmqAz X6IEOinwAgC7RpVGBtb TkaNiT8k5I8Yj4PMf75 RQ57FR50iQIhy6K6rEH 7H1VhROGumphukhasiJ Y9VLWsZUXkeZ02Tc6bf BfgWk0mRUNtKEN4IOHy tELfS9NhuG6mEnWcKLE qDFVvH0NabJDaGRpoK0 15PTolMaK8LSGvwtZcB 5KrSTByjZtfNlO5z9C4 Pq0CCUeerug2F0WhOft vdHI+HN22YLUlQD60gE FuiUTpv9vvbQq7OsZhN XGkVGJ8wGdhCJddx1Tw ZXIt (more content not included)... Normal [facility] Consent for Treatmenton 04-24 Consent for Treatment [id number]:127 Normal [facility] Physician Orderon 05-06-2022 Physician Order [id number]:127 [facility] XR Chest 2 Viewson 3 XR Chest 2 Views Exam Date/Time: 05/06/2022 [...] mGy = na DAP = na Normal [facility] POC COVID-19, MOLECULARon SARS-COV-2 (PERES ID) Not Detected Normal Not Detected [facility] Comment on above: Result Comment: [...] at the following links: For Healthcare Providers: https://www.fda.gov/media/120932/download For Patients: https://www.fda.gov/media/775705/download Performed By: #### P [id number] #### [facility]CT [facility] [address] [place] [address] Rao Pérez, Ph.d. [id number] POC Troponin Ion 10-10-2019 Interpretation and review of laboratory results Normal [facility] Troponin I.cardiac [Mass/Vol] ng/mL <0.05 ng/mL [facility] XR CHEST PA/APon 10-10-2019 XR CHEST PA/AP [...] are clear. IMPRESSION: No acute cardiopulmonary disease. [employer] Workstation ID: [id number] Dictated by: CHACORTA ROCHA on Sat Oct 09, 2019 11:08:51 PM EDT Transcribed by: WILLIAMS THOMASON on Sat Oct 09, 2019 11:24:16 PM EDT Finalized by: CHACORTA ROCHA on Mon 2019 6:06:07 AM EDT [facility] Comment on above: Order Comment: Injur y/Trauma [...] LAFB QRS axis: left T Inversion: aVL [place] Interval: 168 QRS Interval: 88 QT Interval: 433 Clinical impression: non-specific ECG [facility] POC CBC and Differentialon 0 10-09-2019 Basophils (Bld) [#/Vol] 0.06 10*3/uL [facility] Basophils/100 WBC (Bld) 0.6 % [facility] Eosinophils (Bld) [#/Vol] 0.17 10*3/uL [facility] Eosinophils/100 WBC (Bld) 1.6 % [facility] Erythrocyte distribution width (RBC) [Entitic vol] 15.2 % High 11.6 - 14.8 % [facility] Hematocrit (Bld) [Volume fraction] 45.8 % 41 - 53 % [facility] Hemoglobin (Bld) [Mass/Vol] 15.3 g/dL 13.5 - 17.5 g/dL [facility] Immature granulocytes (Bld) [#/Vol] 0.07 10*3/uL [facility] Immature granulocytes/100 WBC (Bld) 0.70 % [facility] Comment on above: The IG parameter is the percentage of metamyelocytes, myelocytes and promyelocytes. An immature granulocyte count (IG) of 1% or more suggests the possibility of infection, an IG count of 3% is very likely related to an infection. Interpretation and review of laboratory results Abnormal [facility] Lymphocytes (Bld) [#/Vol] 1.91 10*3/uL [facility] Lymphocytes/100 WBC (Bld) 18.2 % [facility] MCH (RBC) [Entitic mass] 27.8 pg 26 - 34 pg [facility] MCHC (RBC) [Mass/Vol] 33.4 g/dL 31 - 37 g/dL [facility] MCV (RBC) [Entitic vol] 83.1 fL 80 - 100 fL [facility] Monocytes (Bld) [#/Vol] 0.65 10*3/uL [facility] Monocytes/100 WBC (Bld) 6.2 % [facility] Neutrophils (Bld) [#/Vol] 7.65 10*3/uL High [facility] Neutrophils/100 WBC (Bld) 72.7 % [facility] Platelet mean volume (Bld) [Entitic vol] 10.0 fL 9.4 - 12.4 fL [facility] Platelets (Bld) [#/Vol] 166 10*3/uL [facility] RBC (Bld) [#/Vol] 5.51 10*6/uL [facility] WBC (Bld) [#/Vol] 10.51 10*3/uL [facility] POC Covid-19, Molecularon Interpretation and review of laboratory results Normal [facility] SARS-CoV-2 Not Detected Not Detected [facility] Comment on above: This test was perfor [...] at the following links: For Healthcare Providers: https://www.fda.gov/media/164455/download For Patients: https://www.Videostrip.gov/media/921643/download POC Troponin Ion 10-09-2019 Interpretation and review of laboratory results Normal [facility] Troponin I.cardiac [Mass/Vol] ng/mL <0.05 ng/mL [facility] POC Venous Blood Gases with Full Panelon 10-09-2019 Base excess Calc (BldV) [Moles/Vol] 0.9 mmol/L [facility] Calcium.ionized [Mass/Vol] 4.1 mg/dL Low 4.5 - 5.3 mg/dL [facility] Chloride [Moles/Vol] 101 mmol/L 98 - 10 8 mmol/L [facility] CO2 (BldV) [Partial pressure] 46.0 mm[Hg] [facility] Creatinine [Mass/Vol] 0.84 mg/dL 0.50 - 1.30 Oh [facility] GFR/1.73 sq M predicted among non-blacks MDRD (S/P/Bld) [Vol rate/Area] The eGFR should be used for monitoring renal function only and not for medication dosing. Specimens collected in a lithium heparin tube may show erroneous pO2, pCO2 and related calculations due to aerobic handling. If the most accurate venous blood gas results are needed, use a heparinized blood gas syringe. [facility] GFR/1.73 sq M.predicted MDRD (S/P/Bld) [Vol rate/Area] 103 mL/min/{1.73_m2} >=60 mL/min/1.73 m2 [facility] Glucose [Mass/Vol] 202 mg/dL High 65 - 99 mg/dL [facility] HCO3 (Bld) [Moles/Vol] 26.7 mmol/L 24 - 28 mmol/L [facility] Hematocrit (Bld) [Volume fraction] 46 % 41 - 53 % [facility] Hemoglobin (Bld) [Mass/Vol] 15.5 g/dL 13.5 - 17.5 g/dL [facility] Interpretation and review of laboratory results Abnormal [facility] Lactate [Moles/Vol] 1.6 mmol/L 0.6 - 2 mmol/L [facility] Oxygen (BldV) [Partial pressure] 39 mm[Hg] [facility] Oxygen saturation in Venous blood 71.7 % High 40 - 70 % [facility] pH (BldV) 7.37 [pH] [facility] Potassium [Moles/Vol] 4.1 mmol/L 3.5 - 5.1 mmol/L [facility] Sodium [Moles/Vol] 137 mmol/L 135 - 145 mmol/L [facility] Urea nitrogen [Mass/Vol] 8 mg/dL 8 - 25 mg/dL [facility] Complete PFTon 04-01-2017 DL Adj Pre 19.5 [...] Time Vital Sign Value Performing Clinician Facility 06-28-2024 08:27-0400 Body height 177.8 cm [facility] 06-28-2024 08:27-0400 Body mass index (BMI) [Ratio] 52.6 kg/m2 [facility] 06-28-2024 08:27-0400 Body temperature 96.9 [degF] [facility] 06-28-2024 08:27-0400 Body weight 166.46 kg [facility] 06-28-2024 08:27-0400 Diastolic blood pressure 70 mm[Hg] [facility] 06-28-2024 08:27-0400 Heart rate 60 /min [facility] 06-28-2024 08:27-0400 SaO2% (BldA) [Mass fraction] 94 % [facility] 06-28-2024 08:27-0400 Systolic blood pressure 122 mm[Hg] [facility] 04-28-2024 13:07-0500 Body height 177.8 cm Jazz Hyde APRN Work Phone: [facility] 04-28-2024 13:07-0500 Body mass index (BMI) [Ratio] 52.2 kg/m2 Jazz Hyde APRN Work Phone: [facility] 04-28-2024 13:07-0500 Body temperature 97.4 [degF] Jazz Hyde APRN Work Phone: [facility] 04-28-2024 13:07-0500 Body weight 165.1 kg Jazz Hyde APRN Work Phone: [facility] 04-28-2024 13:07-0500 Diastolic blood pressure 82 mm[Hg] Jazz Hyde APRN Work Phone: [facility] 04-28-2024 13:07-0500 Heart rate 82 /min Jazz Mosesjuarez [employer] Work Phone: [facility] 04-28-2024 13:07-0500 SaO2% (BldA) [Mass fraction] 93 % Jazz Mosesjuarez [employer] Work Phone: [facility] 04-28-2024 13:07-0500 Systolic blood pressure 130 mm[Hg] Jazz Mary Ellen [employer] Work Phone: [facility] 03-30-2024 08:26-0500 Body height 177.8 cm Jazz Mary Ellen [employer] Work Phone: [facility] 03-30-2024 08:26-0500 Body mass index (BMI) [Ratio] 54.1 kg/m2 Jazz Mosesjuarez [employer] Work Phone: [facility] 03-30-2024 08:26-0500 Body temperature 97.8 [degF] Jazz Mary Ellen [employer] Work Phone: [facility] 03-30-2024 08:26-0500 Body weight 171.11 kg Jazz Mosesjuarez [employer] Work Phone: [facility] 03-30-2024 08:26-0500 Diastolic blood pressure 72 mm[Hg] Jazz Mary Ellen FUNEZ[employer] Work Phone: [facility] 03-30-2024 08:26-0500 Heart rate 103 /min Jazz Mary Ellen [employer] Work Phone: [facility] 03-30-2024 08:26-0500 SaO2% (BldA) [Mass fraction] 90 % Jazz Mary Ellen FUNEZN Work Phone: [facility] 03-30-2024 08:26-0500 Systolic blood pressure 122 mm[Hg] Jazz Hyde APRN Work Phone: [facility] 02-10-2024 10:53-0500 Body height 177.8 cm Jazz Kwonfaraz [employer] Work Phone: [facility] 02-10-2024 10:53-0500 Body mass index (BMI) [Ratio] 53.7 kg/m2 Jazz Hyde [employer] Work Phone: [facility] 02-10-2024 10:53-0500 Body temperature 96.3 [degF] Jazz Mary Ellen [employer] Work Phone: [facility] 02-10-2024 10:53-0500 Body weight 169.81 kg Jazz Hyde [employer] Work Phone: [facility] 02-10-2024 10:53-0500 Diastolic blood pressure 78 mm[Hg] Jazz Mosesjuanreemafaraz [employer] Work Phone: [facility] 02-10-2024 10:53-0500 Heart rate 81 /min Jazz Hyde [employer] Work Phone: [facility] 02-10-2024 10:53-0500 SaO2% (BldA) [Mass fraction] 92 % Jazz Kwonfaraz [employer] Work Phone: [facility] 02-10-2024 10:53-0500 Systolic blood pressure 136 mm[Hg] Jazz Kwonfaraz FUNEZN Work Phone: [facility] 12-26-2023 08:58-0400 Body height 177.8 cm [facility] 12-26-2023 08:58-0400 Body mass index (BMI) [Ratio] 53.8 kg/m2 [facility] 12-26-2023 08:58-0400 Body temperature 96.6 [degF] [facility] 12-26-2023 08:58-0400 Body weight 170.23 kg [facility] 12-26-2023 08:58-0400 Diastolic blood pressure 78 mm[Hg] [facility] 12-26-2023 08:58-0400 Heart rate 116 /min [facility] 12-26-2023 08:58-0400 SaO2% (BldA) [Mass fraction] 93 % [facility] 12-26-2023 08:58-0400 Systolic blood pressure 138 mm[Hg] [facility] 11-25-2023 08:33-0400 Body height 177.8 cm [facility] 11-25-2023 08:33-0400 Body mass index (BMI) [Ratio] 53.4 kg/m2 [facility] 11-25-2023 08:33-0400 Body temperature 97.3 [degF] [facility] 11-25-2023 08:33-0400 Body weight 168.79 kg [facility] 11-25-2023 08:33-0400 Diastolic blood pressure 64 mm[Hg] [facility] 11-25-2023 08:33-0400 Heart rate 72 /min [facility] 11-25-2023 08:33-0400 SaO2% (BldA) [Mass fraction] 90 % [facility] 11-25-2023 08:33-0400 Systolic blood pressure 118 mm[Hg] [facility] 08-18-2023 08:28-0400 Body height 177.8 cm [facility] 08-18-2023 08:28-0400 Body mass index (BMI) [Ratio] 52.4 kg/m2 [facility] 08-18-2023 08:28-0400 Body weight 166.01 kg [facility] 08-18-2023 08:28-0400 Diastolic blood pressure 72 mm[Hg] [facility] 08-18-2023 08:28-0400 Heart rate 85 /min [facility] 08-18-2023 08:28-0400 SaO2% (BldA) [Mass fraction] 94 % [facility] 08-18-2023 08:28-0400 Systolic blood pressure 110 mm[Hg] [facility] 08-03-2021 10:25-0400 Blood Pressure Location Hansa Sandyd [facility] 08-03-2021 10:25-0400 Diastolic blood pressure 67 mm[Hg] Hansa Eid [facility] 08-03-2021 10:25-0400 Heart rate 87 /min Hansa Eid [facility] 08-03-2021 10:25-0400 SaO2% (BldA) [Mass fraction] 95 % [facility] 08-03-2021 10:25-0400 Systolic blood pressure 106 mm[Hg] [facility] 10-10-2019 00:30-0400 Pulse Oximetry 97 % Myah Valle [facility] 10-10-2019 00:15-0400 Pulse (Heart Rate) 92 /min Myah Valle [facility] 10-10-2019 00:15-0400 Respiratory Rate 20 /min Myah Valle [facility] 10-09-2019 23:32-0400 BP Diastolic 71 mm[Hg] Myah Valle [facility] 10-09-2019 23:32-0400 BP Systolic 133 mm[Hg] Myahmoise Valle [facility] 10-09-2019 22:37-0400 BMI (Body Mass Index) 52.23 kg/m2 Myahmoise Valle [facility] 10-09-2019 22:37-0400 Body Temperature 98.2 [degF] Myahmoise Valle [facility] 10-09-2019 22:37-0400 Body weight 167.83 kg Myahmoise Valle [facility] 10-09-2019 22:37-0400 Height 177.8 cm Myahmoise Valle [facility] 12-10-2018 10:19-0400 BP Diastolic 78 mm[Hg] Angelo Rios [facility] 12-10-2018 10:19-0400 BP Systolic 132 mm[Hg] Angelo Rios [facility] 12-10-2018 10:19-0400 Pulse (Heart Rate) 78 /min Angelo Rios [facility] 12-10-2018 10:19-0400 Pulse Oximetry 93 % Angelo [facility] Comment on above: ra 12-10-2018 10:19-0400 Respiratory Rate 20 /min Angelo Rios [facility] 06-15-2018 11:07-0400 BMI (Body Mass Index) 54.39 kg/m2 [facility] 06-15-2018 11:07-0400 Body Temperature 97.81 [degF] [facility] 06-15-2018 11:07-0400 Body weight 176.9 kg [facility] 06-15-2018 11:07-0400 BP Diastolic 77 mm[Hg] [facility] 06-15-2018 11:07-0400 BP Systolic 152 mm[Hg] [facility] 06-15-2018 11:07-0400 Height 180.3 cm [facility] 06-15-2018 11:07-0400 Pulse (Heart Rate) 76 /min [facility] 06-15-2018 11:07-0400 Pulse Oximetry 96 % [facility] 06-15-2018 11:07-0400 Respiratory Rate 16 /min [facility] 06-15-2018 10:19-0400 BMI (Body Mass Index) 55.51 kg/m2 [facility] 06-15-2018 10:19-0400 BP Diastolic 78 mm[Hg] [facility] 06-15-2018 10:19-0400 BP Systolic 136 mm[Hg] [facility] 06-15-2018 10:19-0400 Height 180.3 cm [facility] 06-15-2018 10:19-0400 Pulse (Heart Rate) 74 /min [facility] 06-15-2018 10:19-0400 Weight 180.53 kg [facility] 06-04-2018 09:11-0400 BP Diastolic 72 mm[Hg] [facility] 09:11-0400 BP Systolic 111 mm[Hg] [facility] 09:11-0400 Height 180.3 [facility] 09:11-0400 Pulse (Heart Rate) 75 /min Angelo Rios [facility] 06-04-2018 09:11-0400 Pulse Oximetry 95 % Angelo Rios [facility] 06-04-2018 09:11-0400 Respiratory Rate 12 /min Angelo Rios [facility] 04-01-2017 09:22-0500 BMI (Body Mass Index) 53 kg/m2 Angelo Rios [facility] Work Phone: 04-01-2017 09:22-0500 BP Diastolic 85 mm[Hg] Angelo Rios [facility] Work Phone: 04-01-2017 09:22-0500 BP Systolic 138 mm[Hg] Angelo Rios [facility] Work Phone: 04-01-2017 09:22-0500 Height 180.3 cm Angelomichael Rios [facility] Work Phone: 04-01-2017 09:22-0500 Pulse (Heart Rate) 75 /min Angelo Rios [facility] Work Phone: 04-01-2017 09:22-0500 Pulse Oximetry 94 % Angelo Rios [facility] Work Phone: 04-01-2017 09:22-0500 Weight 172.37 kg Angelo Rios [facility] Work Phone: 11-25-2016 10:31-0400 BMI (Body Mass Index) 51.6 kg/m2 Angelo Rios [facility] Work Phone: 11-25-2016 10:31-0400 BP Diastolic 68 mm[Hg] Angelo Rios [facility] Work Phone: 11-25-2016 10:31-0400 BP Systolic 126 mm[Hg] Angelo Rios [facility] Work Phone: 11-25-2016 10:31-0400 Height 180.3 cm Angelo Rios [facility] Work Phone: 11-25-2016 10:31-0400 Pulse (Heart Rate) 87 /min Angelo Rios [facility] Work Phone: 11-25-2016 10:31-0400 Pulse Oximetry 95 % Angelo Rios [facility] Work Phone: 11-25-2016 10:31-0400 Respiratory Rate 16 /min Angelo Rios [facility] Work Phone: 11-25-2016 10:31-0400 Weight 167.83 kg Angelo Rios [facility] Work Phone: Encounters Encounter Date Encounter Type Care Provider Facility Start: 06-28-2024 End: 06-28-2024 ambulatory [facility] Work Phone: Start: 06-28-2024 End: 06-28-2024 Patient encounter procedure [facility] Work Phone: Start: 04-28-2024 End: 04-28-2024 ambulatory Jazz Hyde [employer] Work Phone: [facility] Work Phone: Start: 04-28-2024 End: 04-28-2024 Patient encounter procedure Jazz Mary Ellen [employer] Work Phone: [facility] Work Phone: Start: 04-27-2024 Patient encounter procedure Jazz Hyde [employer] Work Phone: [facility] Start: 03-30-2024 Patient encounter status Sarika Hyde [employer] Work Phone: [facility] Start: 03-30-2024 End: 03-30-2024 ambulatory Jazz Hyde [employer] Work Phone: [facility] Work Phone: Start: 03-30-2024 End: 03-30-2024 Patient encounter procedure Jazz Hyde [employer] Work Phone: [facility] Work Phone: Start: 02-10-2024 End: 02-10-2024 ambulatory Jazzlyndon Kwonfaraz Facility:[facility] Start: 02-10-2024 End: 02-10-2024 Departed Referred Jazz Hyde [employer] Work Phone: [facility] [place] Work Phone: Start: 02-10-2024 End: 02-10-2024 Patient encounter procedure Jazz Hyde [employer] Work Phone: [facility] Work Phone: Start: 12-26-2023 End: 12-26-2023 ambulatory [facility] Work Phone: Start: 12-26-2023 End: 12-26-2023 Patient encounter procedure [facility] Work Phone: Start: 11-25-2023 End: 11-25-2023 ambulatory [facility] Work Phone: Start: 11-25-2023 End: 11-25-2023 Patient encounter procedure [facility] Work Phone: Start: 08-18-2023 End: 08-18-2023 ambulatory [facility] Work Phone: Start: 08-18-2023 End: 08-18-2023 Patient encounter procedure [facility] Work Phone: Start: 07-31-2023 Documentation procedure Laxmi Perez LPN [facility] Comment on above: Requesting Sleep Edmond dy Start: 12-23-2022 End: 12-24-2022 ambulatory Casey Morse Facility:[facility] Start: 12-23-2022 End: 12-23-2022 Patient encounter procedure Casey Morse III [facility] Start: 08-16-2022 End: 08-17-2022 ambulatory Franchesca Don Facility:[facility] Start: 08-16-2022 End: 08-16-2022 Patient encounter procedure Franchesca Don [facility] Start: 05-22-2022 End: 05-23-2022 ambulatory Jj C Link Facility:[facility] Start: 05-22-2022 End: 05-22-2022 Patient encounter procedure Jj C Link [facility] Start: 05-06-2022 End: 05-07-2022 ambulatory Jj C Link Facility:[facility] Start: 11-15-2021 End: 03-14-2022 Pre-admission assessment Basetanika Eid [facility] Start: 10-03-2021 End: 10-03-2021 Patient encounter procedure Basetanika Eid [facility] Start: 08-03-2021 End: 08-03-2021 Patient encounter procedure Basetanika Eid [facility] Start: 07-03-2021 End: 07-28-2021 Pre-admission assessment Basetanika Eid [facility] Start: 11-20-2020 Refill Angelo gonzalez MD Work Phone: [facility] Comment on above: Chronic obstructive pulmonary disease with acute exacerbation (HCC) Start: 08-18-2020 End: 08-18-2020 Refill Marianela Orozco LPN [facility] Comment on above: Chronic obstructive pulmonary disease with acute exacerbation (HCC) (Primary Dx) Start: 06-16-2020 End: 06-16-2020 ambulatory ANGELO RIOS [facility] Ambulatory Start: 06-16-2020 End: 06-16-2020 Phys/qhp telephone evaluation 11-20 min Angelo Rios MD Work Phone: [facility] Comment on above: Centrilobular emphys karoline (HCC) (Primary Dx); Obstructive sleep apnea; Tobacco abuse disorder Start: 06-08-2020 ambulatory [facility] Facility:[facility] Start: 05-30-2020 ambulatory ANGELO RIOS [facility] Ambulatory Start: 05-18-2020 ambulatory SELF SELF Facility:[facility] Start: 05-18-2020 Patient encounter procedure SELF SELF Facility:[facility] Start: 05-10-2020 End: 05-10-2020 Orders Only Yandy Davonte Craft Work Phone: [facility] Start: 03-12-2020 End: 03-12-2020 Refill Angelo Rios Work Phone: [facility] Start: 02-16-2020 End: 02-16-2020 ambulatory [facility] Start: 01-19-2020 [facility] Start: 12-28-2019 End: 12-28-2019 Documentation procedure Kim Rust [facility] Comment on above: nebulizer Start: 12-01-2019 End: 12-01-2019 Documentation procedure Kim Rust LPN [facility] Comment on above: tudorza denied Start: 11-30-2019 ambulatory BERNADINE VERMA [facility] Ambulatory Start: 10-21-2019 End: 10-21-2019 ambulatory [facility] Amb[facility] Start: 10-10-2019 End: 10-10-2019 Patient encounter procedure MYAH BAPTISTEATRICK [facility] Start: 10-10-2019 End: 10-10-2019 Emergency department patient visit BERNADINE [facility] Start: 10-09-2019 End: 10-10-2019 Emergency department patient visit Myah Valle Work Phone: [facility] Comment on above: COPD exacerbation (H CC) (Primary Dx); Chest pain, unspecified type Start: 03-11-2019 End: 03-11-2019 Documentation procedure Kim Rust [facility] Comment on above: bipap status Start: 02-26-2019 End: 02-26-2019 Documentation procedure Nga Serrano [facility] Start: 12-10-2018 End: 12-10-2018 Documentation procedure Kim Rust [facility] Comment on above: titration study orde red Start: 12-10-2018 End: 12-10-2018 Office outpatient visit 25 minutes Angelo Rios Work Phone: [facility] Comment on above: Centrilobular emphys karoline (HCC) (Primary Dx); Obstructive sleep apnea; Cigarette Smoker Start: 07-03-2018 End: 07-03-2018 Documentation procedure Davonte Hines [facility] Comment on above: CPAP supplies Start: 06-15-2018 End: 06-15-2018 [facility] Start: 06-15-2018 End: 06-15-2018 Emergency department patient visit Debbie Erwin Work Phone: [facility] Comment on above: Pain, dental (Primar y Dx) Start: 06-15-2018 End: 06-15-2018 Patient encounter procedure Franky Cristina Bin Work Phone: [facility] Comment on above: ERRONEOUS ENCOUNTER- -DISREGARD (Primary Dx) Start: 06-04-2018 End: 06-04-2018 Office outpatient visit 25 minutes Angelo Rios Work Phone: [facility] Comment on above: Centrilobular emphys karoline (HCC) (Primary Dx); Obstructive sleep apnea; Tobacco abuse disorder Start: 04-01-2017 Office/outpatient vi sit, est, level 4 Angelo Rios Work Phone: [facility] Start: 04-01-2017 End: 04-01-2017 Ambulatory Angelo Rios Work Phone: [facility] Start: 11-25-2016 Office/outpatient vi sit, est, level 5 Angelo Rios Work Phone: [facility] Start: 09-11-2016 Ambulatory [facility] Procedures Date Procedure Procedure Detail Performing Clinician Start: 02-10-2024 Aerobic microbial culture Jazz Mary Ellen [employer] Work Phone: Start: 02-10-2024 Anaerobic microbial culture Jazz Mary Ellen [employer] Work Phone: Start: 02-10-2024 Gram stain microscopy J oli Mary Ellen [employer] Work Phone: Start: 10-10-2019 Assay of troponin quantitative Myah To James Work Phone: Start: 10-09-2019 POC COVID-19, MOLECULAR Myah To James Work Phone: Start: 10-09-2019 12 lead ECG Myah Clementskpatrick Work Phone: Start: 10-09-2019 Assay of troponin quantitative Myah To James Work Phone: Start: 10-09-2019 Radiologic exam ches t single view Myah To James Work Phone: Start: 10-09-2019 Assay of urea nitrog en quantitative Myah To James Work Phone: Start: 10-09-2019 Blood count complete auto&auto difrntl wbc Myah Clementskpatrick Work Phone: Start: 09-24-2019 Microalbumin [Mass/v olume] in Urine by Test strip Kim Rust Start: 08-26-2017 Ophthalmic examinati on and evaluation Angelo Rios MD Work Phone: Start: 04-01-2017 End: 04-01-2017 COMPLETE PFT Angelo Rios Work Phone: Plan of Treatment Date Care Activity Detail Author Start: 10-26-2023 Influenza vaccination Influenza Vaccine (Season Ended) [facility] Start: 10-25-2022 COVID-19 Vaccine ( season) COVID-19 Vaccine ( season) [facility] Start: 10-25-2020 Influenza vaccination Sequential Influenza Vaccine (#1) [facility] Start: 09-23-2020 Albumin DL <= 20 mg/L (U) [Mass/Vol] Urine Microalbumin [facility] Start: 09-23-2020 Microalbumin measurement, urine, quantitative Urine Microalbumin [facility] Start: 09-23-2020 Urine screening for protein Urine Microalbumin [facility] Start: 09-18-2020 End: 09-18-2020 Patient encounter procedure 09/18/2020 Office Visit Pulmonology Al Solomon, MONITORING MANAGER [address] [place] [address] [phone] [facility] Start: 08-15-2020 Hemoglobin A1c measurement A1C [facility] Start: 06-16-2020 End: 06-16-2020 Office Visit 06/16/2020 Office Visit Pulmonology Angelo Rios MD [address] [place] [address] [phone] [facility] Start: 04-11-2020 HbA1c (Bld) [Mass fraction] A1C [facility] Start: 04-11-2020 Hemoglobin A1c measurement A1C [facility] Start: 02-16-2020 End: 02-16-2020 Telemedicine 02/16/2020 Telemedicine Pulmonology Al Solomon MONITORING MANAGER [address] [place] [address] [phone] [facility] Start: 10-26-2019 Influenza vaccination Sequential Influenza Vaccine (#1) [facility] Start: 10-26-2019 Influenza vaccination given Sequential Influenza Vaccine (#1) [facility] Start: 10-21-2019 End: 10-21-2019 Office Visit 10/21/2019 Office Visit Pulmonology Al Solomon MONITORING MANAGER [address] [place] [address] [facility] Start: 10-12-2019 Administration of herpes zoster vaccine Zoster Vaccines (1 of 2) [facility] Start: 10-12-2019 Screening for malignant neoplasm of colon [facility] Start: 06-17-2019 End: 06-17-2019 Office Visit 06/17/2019 Office Visit Pulmonology Angelo Rios MD [address] [place] [address] [facility] Start: 12-10-2018 End: 12-10-2018 Office Visit 12/10/2018 Office Visit Pulmonology Angelo Rios MD [address] [place] [address] [phone] [facility] Start: 10-25-2018 Influenza vaccination given [facility] Start: 08-26-2018 Glaucoma screening Diabetic Eye Exam [facility] Start: 08-26-2018 Ophthalmic examination and evaluation Ophthalmology Exam [facility] Start: 06-30-2018 End: 06-30-2018 Treatment 06/30/2018 Treatment Cardiac Rehabilitation Felisha Cisneros MD [address] [facility] [address] [place] [address] [facility] Start: 06-15-2018 End: 06-15-2018 Office Visit 06/15/2018 Office Visit Cardiology Franky Steward MD [address] [facility] [address] [place] [address] [phone] [facility] Start: 10-25-2017 Influenza vaccination given SEQUENTIAL INFLUENZA VACCINE (#1) [facility] Start: 08-06-2017 Ambulatory 08/06/2017 Office Visit Pulmonology Angelo Rios MD [address] [place] [address] [facility] Start: 04-01-2017 Ambulatory 04/01/2017 Office Visit Pulmonology Angelo Rios MD [address] [id number] [phone] [facility] Start: 10-25-2016 Influenza vaccination SEQUENTIAL INFLUENZA VACCINE (#1) [facility] Work Phone: Start: 11-17-2014 Low dose computed tomography of chest without contrast Low-dose CT Lung Cancer Screen [facility] Start: 11-17-2014 Screening for malignant neoplasm of lung Low-dose CT Lung Cancer Screen [facility] Start: 10-12-1987 Hepatitis C antibody, confirmatory test Hepatitis C Screening [facility] Start: 10-12-1987 Hepatitis C screening Hepatitis C Screening [facility] Start: 1985 COVID-19 Vaccine (1 of 2) COVID-19 Vaccine (1 of 2) [facility] Start: 1984 HIV screening HIV Screening [facility] Start: 1981 Adolescent depression screening assessment Depression Screening (PHQ9) [facility] Start: 1981 Depression screening using PHQ-9 (Patient Health Questionnaire 9) score [facility] Start: 10-12-1979 Diabetic foot examination [facility] Start: 10-12-1979 Microalbumin measurement, urine, quantitative Urine Microalbumin [facility] Start: 10-12-1979 Ophthalmic examination and evaluation Ophthalmology Exam [facility] Start: 10-12-1975 Pneumococcal Vaccine: Ped or At-Risk (1 of 2 - PCV) Pneumococcal Vaccine: Ped or At-Risk (1 of 2 - PCV) [facility] Start: 10-12-1975 Pneumococcal Vaccine: Ped or At-Risk (1 of 2 - PPSV23) Pneumococcal Vaccine: Ped or At-Risk (1 of 2 - PPSV23) [facility] Start: 1972 History and physical examination, annual for health maintenance Wellness Visit [facility] Start: 1969 Prostate specific antigen measurement PSA Level [facility] Start: 1969 Screening for malignant neoplasm of colon [facility] Start: 1969 Tetanus vaccination [facility] End: 11-25-2017 Complete PFT Complete PFT Routine Centrilobular emphysema (HCC) 1 Occurrences starting 11/25/2016 until 11/25/2017 [facility] Work Phone: Comprehensive metabo lic 2000 panel - Serum or Plasma [facility] Patient Education Low back pain in adults [facility] Work Phone: XR Chest 1 View XR Chest 1 View Imaging KEITH 10/09/2019 11:00 PM EDT [facility] Immunizations Immunization Date Immunization Notes Care Provider Fa vini 12-12-2019 influenza virus vacc ine, unspecified formulation Laxmi Perez [employer] [facility] Payers Date Payer Category Payer Self-pay 2018 Medicaid [id number] 2018 Medicaid [place] [id number] 2018-Present [phone] [address] [place] [address] [id number] 2018 Medicare MEDICARE MEDICAR E PART A & B [id number] 2018-Present [place] xxxxxxxxxxx [id number] 2018 Medicare [id number] 2018 Medicare [id number] 2018 Medicare MEDICARE MEDICAR E PART A & B [id number] 2018-Present [phone] S [id number] PART A CLAIMS [address] [address] [place] [address] [id number] 2013 Medicaid [id number] 2013 Medicaid [id number] 1969 Unknown [id number] [id number] 1969 Unknown [id number] [id number] 1969 Unknown [id number] [id number] 1969 Unknown [id number] [id number] 1969 Unknown [id number] 2.16.840.1.528590.3.579.2.903 1969 Unknown [id number] 2.16.840.1.738226.3.579.2.903 1969 Unknown [id number] 2.16.840.1.167073.3.579.2.90 1969 Unknown [id number] 2.16.840.1.440320.3.579.2.903 1969 Unknown [id number] 2.16.840.1.964997.3.579.2.903 1969 Unknown [id number] 2.16.840.1.623484.3.579.2.903 1969 Unknown [id number] [id number] 1969 Unknown [id number] 2.16.840.1.804446.3.579.2.727 1969 Unknown [id number] 2.16.840.1.359410.3.579.2.727 1969 Unknown [id number] [id number] 1969 Unknown [id number] 2.16.840.1.854708.3.579.2.727 Medicaid [id number] Medicare Medicare [id number] Unknown [id number] [id number] Social History Date Type Detail Facility Start: 11-25-2016 End: 06-16-2020 Tobacco smoking status NHIS Current every day smoker [facility] Start: 1970 Sex Assigned At Not on file [facility] Work Phone: Start: 06-15-2018 End: 06-16-2020 Cigarettes smoked current (pack per day) - Reported [facility] Start: 12-10-2018 End: 06-16-2020 Alcohol intake Current non-drinker of alcohol (finding) [facility] Start: 10-10-2019 End: 06-16-2020 Tobacco use and exposure Never used [facility] Exposure to SARS-CoV -2 (event) Yes [facility] Exposure to SARS-CoV -2 (event) Unable to assess [facility] Start: 06-16-2020 Sex Assigned At Male [facility] Start: 08-03-2021 Tobacco smoking status Heavy tobacco smoker (finding) [facility] Tobacco smoking status Never [facility] History of tobacco use Cigarette Smoker [facility] Start: 01-23-2018 Gender identity Identifies as male gender (finding) [facility] Start: 01-23-2018 Sexual orientation Heterosexual (finding) [facility] Start: 08-18-2023 End: 08-18-2023 Tobacco smoking status NHIS Smoker (finding) [facility] Start: 1970 Sex Assigned At Male [facility] Start: 03-30-2024 End: 06-28-2024 Sex Male (finding) [facility] Medical Equipment Procedure Code Equipment Code Equipment Origin al Text Equipment Identifier Dates USE 1 NEEDLE ONC E DAILY [id number] Start: 01-17-2020 daily as directed . [id number] Start : 12-27-2019 Blood Sugar Diagnostic (Accutrend Glucose Test Strips) strip Start: 02-13-2024 Lancets (Accu-Ch ek Softclix Lancets) misc Start: 03-30-2024 Pen Needle, Diab etic (Sure-Fine Pen [place]) 31 gauge x 5/16 needle Start: 02-16-2024 Blood Sugar Diagnostic (Accutrend Glucose Test Strips) strip Start: 02-11-2024 End: 02-13-2024 Lancets (Accu-Ch ek Softclix Lancets) misc Start: 02-12-2024 End: 02-13-2024 Lancets (Accu-Ch ek Softclix Lancets) misc Start: 02-13-2024 End: 03-30-2024 Blood Sugar Diagnostic (Accutrend Glucose Test Strips) strip Start: 02-13-2024 Lancets (Accu-Ch ek Softclix Lancets) misc Start: 03-30-2024 Pen Needle, Diab etic (Sure-Fine Pen [place]) 31 gauge x 5/16 needle Start: 02-16-2024 Blood Sugar Diagnostic (Accutrend Glucose Test Strips) strip Start: 02-11-2024 End: 02-13-2024 Lancets (Accu-Ch ek Softclix Lancets) misc Start: 02-12-2024 End: 02-13-2024 Lancets (Accu-Ch ek Softclix Lancets) misc Start: 02-13-2024 End: 03-30-2024 Blood Sugar Diagnostic (Accutrend Glucose Test Strips) strip Start: 02-13-2024 Lancets (Accu-Ch ek Softclix Lancets) misc Start: 03-30-2024 Pen Needle, Diab etic (Sure-Fine Pen [place]) 31 gauge x 5/16 needle Start: 02-16-2024 Blood Sugar Diagnostic (Accutrend Glucose Test Strips) strip Start: 02-11-2024 End: 02-13-2024 Lancets (Accu-Ch ek Softclix Lancets) misc Start: 02-12-2024 End: 02-13-2024 Lancets (Accu-Ch ek Softclix Lancets) misc Start: 02-13-2024 End: 03-30-2024 Clinical Notes 12-01-2019 to 03-30-2024 Note Date & Type Note Facility 03-30-2024 Evaluation note Diagnosis Onset Date Resolution Chronic obstructive pulmonary disease (COPD) acute 2024 8:19am Current smoker acute March 302024 8:19am Hyperlipemia acute March 8:19am Hypertension acute March 8:19am Medicare annual wellness visit, subsequent acute March 30, 2024 8:19am Screening for colon cancer acute March 30 8:19am Screening for prostate cancer acute March 30 8:19am Sleep apnea acute March 30, 2024 8:19am Type 2 diabetes mellitus acute March 30, 2024 8:19am Venous insufficiency acute 2024 8:19am Dental abscess acute April 28, 2024 1:03pm Chronic obstructive pulmonary disease (COPD) acute June 8:23am Current smoker acute June 28, 2 025 8:23am Hyperlipemia acute June 28 8:23am Hypertension acute June 28 8:23am Screening for prostate cancer acute June 28, 2024 8: 23am Sleep apnea acute June 28, 2024 8:23am Type 2 diabetes mellitus acute June 28, 2024 8:23am Venous insufficiency acute June 28, 2024 8:23am [facility] Work Phone: 1(884) 881-442012-17-2024 Evaluation note* Diagnosis Onset Date Resolution Status Admit Date Cellulitis of lower extremity acute February 10, 2024 10:46am Lower back pain acute February 10, 2024 10:46am Muscle spasm acute January 10:46am Type 2 diabetes mellitus acute February 10, 2024 10:46am Wound of right lower extremity acute February 10, 2024 10:46am Chronic obstructive pulmonar y disease (COPD) acute March 30 8:19am Current smoker acute March 302024 8:19am Hyperlipemia acute March 8:19am Hypertension acute March 8:19am Screening for prostate cancer acute March 30, 2024 8:19am Sleep apnea acute March 30, 2024 8:19am Type 2 diabetes mellitus acute March 30, 2024 8:19am Venous insufficiency acute 2024 8:19am Venous insufficiency (chroni c) (peripheral) acute March 30 8:19am [facility] Work Phone: 1(272) 721-794212-17-2024 Evaluation note* Diagnosis Onset Date Resolution Status Admit Date Cellulitis of lower extremity acute February 10, 2024 10:46am Lower back pain acute February 10, 2024 10:46am Muscle spasm acute January 10:46am Type 2 diabetes mellitus acute February 10, 2024 10:46am Wound of right lower extremity acute February 10, 2024 10:46am Chronic obstructive pulmonar y disease (COPD) acute March 30 8:19am Current smoker acute March 302024 8:19am Hyperlipemia acute March 8:19am Hypertension acute March 8:19am Medicare annual wellness vis it, subsequent acute March 30 8:19am Screening for colon cancer acute March 30, 2024 8:19am Screening for prostate cancer acute March 30, 2024 8:19am Sleep apnea acute March 30, 2024 8:19am Type 2 diabetes mellitus acute March 30, 2024 8:19am Venous insufficiency acute 2024 8:19am Dental abscess acute April 28, 2024 1:03pm [facility] Work Phone: 1(142) 434-512606-06-2024 History of Present illness Narrative* Laxmi Perez LPN - 07/31/2023 9:06 AM EDT Authorization for IAN fax rec'v from [facility] requesting a copy of sleep study resultwith patient signature. SS result faxed at [phone]. documented in this [id number] Hospital Discharge instructions Follow Up Care 07/27/2021 11:50:22 With:Ragini SALINAS, Hansa Harvey, PUL, SHAJI Address: [address] [place] [address] Pulmonary Clinic (Heart & Vascular) [place] [address]- When: Unknown Comments:after his testing is completed [facility]06-25-2021 Miscellaneous Notes* Telephone Encounter - Marianela Orozco LPN - 08/18/2020 12:12 PM EDT Patient returned call having issues with COPD flair-up for about a week. Denies n/v/d or chest pain. Heavy breathing, shortness of breath is an issue. States he has been using his nebulizer without resolve. Patient would like prednisone before he gets any worse. Advised patient I would forward information to physician and we would get back to him. He verbalized appreciation and understanding. * Telephone Encounter - Marianela Orozco LPN - 08/18/2020 11:04 AM EDT Let M for patient to return call regarding fax received from [employer] for a refill on his Prednisone taper. documented in this [id number] History of Present illness Narrative* Angelo Rios MD - 06/16/2020 10:12 AM EDT Telephone Visit Via Phone Call Patient ID: Ector Rutledge is a 49 y.o. male on the phone for COPD Patient phone : [phone] This visit has been fully reviewed with the patient and verbal consent has been obtained. Dear Dr. Bernadine Verma MD, I had the pleasure of seeing our mutual patient, Ector Rutledge, who returns to see me in my clinic at [facility]. IMPRESSION/RECOMMENDATIONS 1. Mr. Rutledge is a pleasant 49 y.o. male with moderate COPD, Gold stage II, with categoryB, with centrilobular emphysema on the CT scan [...] is on BiPAP and is doing well. Heis doing much better on his current settings and his recent compliance data was reviewed. He has 100% compliance and has residual AHI of 1.2. His [place] Sleepiness Scale is 6/24 and overall he [...] with him about weight reductionstrategies. I will get him back into the [...] He uses a full-face mask for interface. [place] Sleepiness Scale is 9/24. He continues to smoke about a pack to a pack of cigarettes a day. He continues to have a cough with whitish sputum production. Denies any fevers, chills, night sweats, or hemoptysis. He is stopped taking his Lasix as prescribed. He does complain of stable lower ext remity edema. He apparently gained about 10 to [...] for wheezing., Disp: 1 Inhaler, Rfl: 11 Alcohol Prep [...] (two) sprays into each nostril 3 (three) timesa day ., Disp: 30 mL, Rfl: 11 [...] normal EF This note was dictated using [email or web address]/ [employer] Software and may contain errors that were not corrected during editing. Provider location: [facility] [address] [address] Patient location: [address] [place] [address] I have spent 11-20 minutes with the [...] Sincerely, Angelo Rios MD documented in this [id number] History of Present illness Narrative* Kim Rust LPN - 12/01/2019 1:21 PM EDT Insurance denied the tudorza until patient tries atrovent. Informed patient Dr. Rios placed an order for the atrovent today. Asked patient to try it and let us know how it is working for him. He verbalizes understanding documented in this encounterScioCentervilleEvaluation + Plan note Future Appointments Appointment Date:08/03/2021 10:15:00 AM Scheduled [facility] Type[facility]ulmonary [facility] Future Appointments Appointment Date:08/20/2021 07:30:00 AM Scheduled Provider: [facility] Appoint[facility] Type:PUL Pulmonary Function Test (FT) Appointment Date:08/20/2021 08:30:00 AM Scheduled Provider: Location:.[facility] Appointment Type:PUL Six Minute Walk Test (FT) [facility] Diagnosis Centrilobular emphysema (HCC)- Primary Obstructive sleep apnea Obstructive sleep apnea (adult) (pediatric) Tobacco abuse disorder [facility] Diagnosis Chronic obstructive pulmonary disease with acute exacerbation (HCC)- Primary [facility]* Diagnosis Chronic obstructive pulmonary disease with acute exacerbation (HCC) [facility]* Diagnosis Onset Date Resolution Status Chronic obstructive pulmonary disease (COPD) acute Current smoker acute Hyperlipemia acute Type 2 diabetes mellitus acu [facility] Work Phone: Evaluation noteNo assessment information available [facility] Work Phone: Evaluation note* Diagnosis Onset Date Resolution Status Chronic obstructive pulmonary disease (COPD) acute COPD exacerbation acute Current smoker acute Hypertension acute Type 2 diabetes mellitus acu [facility] Work Phone: Hospital course Narrative No data available for this section [facility] No data available for this section [facility] No data available for this section [facility] Assessments Diagnosis Centrilobular emphysema (HCC ) [...] Documents on File Type Date Recorded Patient Bacteriology Research Assistant Expl anation Advance Directives and Livin g Will 06/15/2018 11:51 AM Advance Directives and Livin g Will 06/15/2018 8:23 AM Documents on File Type Date Recorded Patient Bacteriology Research Assistant Expl anation Advance Directives and Livin g [...] Documents on File Type Date Recorded Patient Bacteriology Research Assistant Expl anation Advance Directives and Livin g Will 10/10/2019 4:01 AM Advance Directives and Livin g Will 06/15/2018 11:51 AM Date Activated Date Inactivated Comments 10/10/2019 4:19 AM 10/10/2019 4:28 PM Advance Directive Response Recorded Date/ Time Advance Directives No August 17 8:25am Advance Directive Response Recorded Date/ Time Advance Directives No August 17 7:25am History of Present Illness * Anne Vergara RN - 06/15/2018 2:16 PM EDT This encounter was created in error - please disregard. documented in this encounter* Davonte Hines MA - 07/03/2018 3:00 PM EDT CPAP supply order faxed to [facility], per patient request. F: [phone] Confirmation received. documented in this encounter* Angelo Rios MD - 12/10/2018 10:[address] Bernadine Verma MD, I had the pleasure of seeing our mutual patient, Ector Rutledge, who returns to see me in my clinic at [facility]. IMPRESSION/RECOMMENDATIONS 1. Mr. Rutledge is a pleasant 48-year-old male with moderate COPD, Gold stage II, with category B, with centrilobular emphysema on the CT scan of chest. At this time, I would continue Stacy and Nato, and continue working on smoking cessation. He has not enrolled in pulmonary rehabilitation as advised. I have discussed with him about cutting down on the salt intake and fluid intake. Heis also on Lasix but is not compliant with it. 2. He does have severe obstructive sleep apnea for which he is on BiPAP and was doing well. She gained weight [...] last visit, he has been using BiPAP but tells me his device is not [...] He uses a full-face mask for interface. [place] Sleepiness Scale is 9/24. He continues to [...] normal EF This note was dictated using [email or web address]/ [employer] Software and may contain errors that were not corrected during editing. documented in this encounter* Kim Rust LPN - 12/10/2018 1:57 PM EDT Order faxed to [facility] for titration study documented in this encounter* Kim Rust LPN - 03/11/2019 8:39 AM EST Received fax from Roger from [facility] that he spoke with patient [...] to see me in my clinic at [facility]. IMPRESSION/RECOMMENDATIONS 1. Mr. Rutledge is [...] for which he is on BiPAP and has been doing well. Compliance data [...] last visit, he has been using BiPAP and has been doing well. He has [...] and uses a full-face mask for interface. [place] Sleepiness Scale is 8/24. He continues to [...] history of COPD (chronic obstructive pulmonary disease) ([facility]), Diabetes mellitus ([facility]), GERD (gastroesophageal reflux disease), and Hyperlipidemia. He [...] normal EF This note was dictated using [email or web address]/ Dict[employer] Software and may contain errors that were not corrected during editing. in this encounter* Kim Rust LPN - 12/28/2019 9:49 AM EST Patient left a vm that he dropped his nebulizer machine and it broke and he would like a rx for a new one. [facility] Sheila at [facility] and she will call patient. She states she can exchange it. documented in this encounter Discharge Instructions * Attachments The following attachments cannot be sent through Care Everywhere. * Chest Pain (Faroese) * Chronic Health Conditions: Conserving Energy (Faroese) * COPD: Asthma (Faroese) documented in this encounter* Instructions* Debbie Erwin MD - 06/15/2018 Dental Clinics We recommend that you follow-up with the dentist as soon as possible (KEITH). If you do not have one, here are some options: [facility] [phone] [facility] [phone] [address] [facility] (Dental Clinic) [phone] [address] [facility] [address] By appointment only. $40 standard fee - adjustable per household income [facility] [phone] [facility] [phone] [address] [facility] [phone] [address] [place], [place] [address] [facility] [phone] [address] [facility] ALL Insurances [facility] [phone] [address] [place] [address] [facility] [phone] [address] [place] [address] [employer] [phone] [place] [address] [facility] [phone] [facility] [phone] Will take walk-in patients during certain hours of the day. [phone] [facility] Will take walk-in patients during certain hours of the day. * Attachments The following attachments cannot be sent through Care Everywhere. * Periodontal Conditions (Faroese) * Smoking Cessation: Health Benefits: General Info (Faroese) documented in this encounter Reason for Referral Status Reason Specialty Diagnoses / Procedures Referre d By Contact Referred To Contact Closed Angelo Rios MD [address] [facility] [address] [place] [address] Chief Complaint and Reason for Visit Chief Complaint Establish Reason for Visit Chronic obstructive pulmonary disease (COPD) Current smoker Hyperlipemia Type 2 diabetes mellitus Chief Complaint go over medications Chief Complaint go over medications Rt foot pain Reason for Visit Chronic obstructive pulmonary disease (COPD) COPD exacerbation Current smoker Hypertension Type 2 diabetes mellitus Chief Complaint Admit Date Discuss Diabetes/Leg Sores January 10:46am Wound of right lower extremity S81.801A February 10, 2024 11:24am wellness March 30, 2024 8 :19am Reason for Visit Admit Date Cellulitis of lower extremity January 242023 10:46am Lower back pain February 10, 2024 10:46am Muscle spasm February 10, 2024 10:46am Type 2 diabetes mellitus February 10, 2024 10:46am Wound of right lower extremity February 10, 2024 10:46am Chronic obstructive pulmonary disease (C OPD) March 30, 2024 8:19am Current smoker March 30, 2024 8 :19am Hyperlipemia March 30, 2024 8 :19am Hypertension March 30, 2024 8 :19am Screening for prostate cancer March 302024 8:19am Sleep apnea March 30, 2024 8 :19am Type 2 diabetes mellitus March 30, 8:19am Venous insufficiency March 30, 2024 8:19am Venous insufficiency (chronic) (peripher al) March 30, 2024 8:19am Chief Complaint Admit Date Discuss Diabetes/Leg Sores January 10:46am Wound of right lower extremity S81.801A February 10, 2024 11:24am wellness March 30, 2024 8 :19am infected tooth April 28, 2024 1:03 pm Reason for Visit Admit Date Cellulitis of lower extremity January 242023 10:46am Lower back pain February 10, 2024 10:46am Muscle spasm February 10, 2024 10:46am Type 2 diabetes mellitus February 10, 2024 10:46am Wound of right lower extremity February 10, 2024 10:46am Chronic obstructive pulmonary disease (C OPD) March 30, 2024 8:19am Current smoker March 30, 2024 8 :19am Hyperlipemia March 30, 2024 8 :19am Hypertension March 30, 2024 8 :19am Medicare annual wellness visit, subseque nt March 30, 2024 8:19am Screening for colon cancer March 30, 2024 8:19am Screening for prostate cancer March 302024 8:19am Sleep apnea March 30, 2024 8 :19am Type 2 diabetes mellitus March 30, 025 8:19am Venous insufficiency March 30, 2024 8:19am Dental abscess April 28, 2024 1:03 pm Chief Complaint Admit Date wellness March 30, 2024 8 :19am infected tooth April 28, 2024 1:03 pm 3 month f/u June 28, 2024 8:23am Reason for Visit Admit Date Chronic obstructive pulmonary disease (C OPD) March 30, 2024 8:19am Current smoker March 30, 2024 8 :19am Hyperlipemia March 30, 2024 8 :19am Hypertension March 30, 2024 8 :19am Medicare annual wellness visit, vaniae nt March 30, 2024 8:19am Screening for colon cancer March 30, 2024 8:19am Screening for prostate cancer March 302024 8:19am Sleep apnea March 30, 2024 8 :19am Type 2 diabetes mellitus March 30, 2 025 8:19am Venous insufficiency March 30, 2024 8:19am Dental abscess April 28, 2024 1:03 pm Chronic obstructive pulmonary disease (C OPD) June 28, 2024 8:23am Current smoker June 28, 2024 8:23am Hyperlipemia June 28, 2024 8:23am Hypertension June 28, 2024 8:23am Screening for prostate cancer June 28, 2 025 8:23am Sleep apnea June 28, 2024 8:23am Type 2 diabetes mellitus June 28, 2024 8 :23am Venous insufficiency June 28, 2024 8:23a m Additional Source Comments (unrecognized sect ion and content) No Status Records FoundNo Status Records FoundNo Status Records FoundNo Status Records FoundNo Status Records FoundNo Status Records FoundNo Status Records FoundNo Status Records Found INFORMATION SOURCE (unrecogn ized section and content) DATE CREATED AUTHOR 08/20/2017 [facility] DATE CREATED AUTHOR AUTHOR'S ORGANIZ ATION 06/15/2018 [facility] DATE CREATED AUTHOR AUTHOR'S ORGANIZ ATION 10/21/2019 [facility] DATE CREATED AUTHOR AUTHOR'S ORGANIZ ATION 05/19/2020 [facility] DATE CREATED AUTHOR AUTHOR'S ORGANIZ ATION 06/18/2020 [facility] DATE CREATED AUTHOR AUTHOR'S ORGANIZ ATION 04/13/2021 [facility] DATE CREATED AUTHOR AUTHOR'S ORGANIZ ATION 03/30/2023 [facility] DATE CREATED AUTHOR AUTHOR'S ORGANIZ ATION 02/17/2024 [facility] Reason for Visit (unrecogniz ed section and [...] secti on and content) Pt sent to [facility], room 641 B with all their belongings (i.e shoes, clothes, wallet, symbicort inhaler). All questions/concerns were answered/addressed for EMS. EMS was sent with pt packet consisting of transfer paperwork and location. EMS denies any further questions/concerns at this time. Pt and/or pt family member denies any further questions/concerns at this time. Pt sent via [facility] at this time. Pt sent with [...] and depending on findings possible transfer to [facility] later. At first he does not wish [...] file Gets together: Not on file Attends anglican service: Not on file Active member of club or organization: Not on file Attends meetings of clubs or organizations: Not on file Relationship status: Not on file Other Topics Concern Not on file Social History Narrative Not on file Social history reviewed. Allergies: No Known Allergies Medications: Ector Rutledge Home Medication Instructions Prior to Surgery NEISHA:[id number] Printed on:10/10/19 6620 Medication Information Take last dose on Take [...] placement, I felt he was appropriate for [facility]. Speaking to transfer center they attempted to get him to [facility] short stay unit. Speak with the provider at the short stay we both do not feel he is appropriate for there. Therefore he was then accepted back to [facility] for proper placement, safe observation admission and [...] View Preliminary Result No acute cardiopulmonary disease. Hearsay.it/[employer]om'Up Workstation ID: [id number] MEDICATIONS ORDERED/GIVEN (if any, during ED visit): Medications ipratropium-albuteroL (DUO-NEB) 0.5-2.5 mg/3 ml nebulizer solution 3 mL (3 mL Inhalation Given 10/09/19 0564) sodium chloride (PF) (NS) flush 5 mL (has no administration in time range) And sodium chloride 0.9% (NS) (has no administration in time range) methylPREDNISolone sod suc(PF) (SOLU-medrol) Injection 125 mg (125 mg Intravenous Given 10/09/192258) aspirin chewable tablet 324 mg (324 mg Oral Given 10/09/192258) The secretary board of commissioners of Health and Human Services and Chris Street, governor of the [facility], have declared a state of public [...] in the day. documented in this encounter [facility] ED Attending Note: NAME: Ector Rutledge 47 y.o. CSN: [id number] PCP: Bernadine Verma MD History: Chief Complaint: [...] side. 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 [...] I consider the discharge disposition reasonable. Ector uRtledge (or their surrogate) and I have discussed [...] LAFB QRS axis: left T Inversion: aVL [place] Interval: 168 QRS Interval: 88 QT Interval: 433 Clinical impression: non-specific ECG documented in this encounter Care Teams (unrecognized sec tion and content) Cranberry Bog Supervisor Relationship Specialty Start Date End Date Bernadine Verma MD [address] [place] [address] PCP - General Internal Medicine 06/17/14 Al Solomon MONITORING MANAGER [address] [place] [address] Nurse Practitioner Pulmonology 10/21/19 [employer] Supervisor Relationship Specialty Start Date End Date Bernadine Verma MD PCP - General Internal Medicine 06/17/14 Al Solomon CNP [address] [place] [address] Nurse Practitioner Pulmonology 10/21/19 Team Status: Active Member Role Status Dates Kiki Childress DO Primary Care Provider Active Team Status: Inactive Member Role Status Dates Kiki Childress DO Primary Care Provider Active Start: August 18, 2023 End: August 18, 2023 CHRIS Garza Attending Provider Act prashant Start: August 18, [...] December 26, 2023 End: December 26, 2023 Jazz Hyde APRN TUBULAR STOCK GLASS BULB MACHINE FORMER-C Attending Provider Active Start: December 26, 2023 End: December 26, 2023 Team Status: Active Member Role Status Dates Jazz Hyde METAL REED TUNER TUBULAR STOCK GLASS BULB MACHINE FORMER-C Primary Care Provider Active Team Status: Inactive Member Role Status Dates Jazz Hyde APRN TUBULAR STOCK GLASS BULB MACHINE FORMER-C Primary Care Provider, Attending Provider Active Start: February 10, 2024 End: February 10, 2024 Team Status: Inactive Member Role Status Dates Jazz Hyde APRN TUBULAR STOCK GLASS BULB MACHINE FORMER-C Attending Provider Act prashant Start: February 10, 2024 End: February 10, 2024 Team Status: Inactive Member Role Status Dates Jazz Hyde APRN TUBULAR STOCK GLASS BULB MACHINE FORMER-C Primary Care Provider, Attending Provider Active Start: March 30, 2024 End: March 30, 2024 Team Status: Inactive Member Role Status Dates Jazz Hyde APRN TUBULAR STOCK GLASS BULB MACHINE FORMER-C Primary Care Provider, Attending Provider Active Start: April 28, 2024 End: April 28, 2024 Team Status: Inactive Member Role Status Dates Jazz Hyde APRN TUBULAR STOCK GLASS BULB MACHINE FORMER-C Primary Care Provider, Attending Provider Active Start: June 28, 2024 End: June 28, 2024 Goals (unrecognized section and content) Goals may [...] BE BASED ON THE PRIMARY CLINICAL RECORDS. [employer] provides no warranty or guarantee of the accuracy or completeness of information in this document.
== END 2024-07-07 08:49 | disposition home or self-care (01) ==
LOC: WC 08:48
PROVIDERS: PCP Nurse Practitioner Family; Visit Provider Physician Assistant
DX: E11.621 Type 2 diabetes mellitus with foot ulcer (principal); L97.422 Non-pressure chronic ulcer of left heel and midfoot with fat layer exposed; L84 Corns and callosities; E11.65 Type 2 diabetes mellitus with hyperglycemia
CPT/HCPCS: G0463

== ENCOUNTER 2024-07-27 08:50 | Outpatient (OUT) | payer MEDICARE, MEDICAID, SELFPAY | END 2024-07-27 08:51 | disposition home or self-care (01) | LOC: WC 08:56 | PROVIDERS: PCP Nurse Practitioner Family; Visit Provider Physician Assistant | DX: L84 Corns and callosities (principal); E11.621 Type 2 diabetes mellitus with foot ulcer; L97.422 Non-pressure chronic ulcer of left heel and midfoot with fat layer exposed; E11.65 Type 2 diabetes mellitus with hyperglycemia; E11.40 Type 2 diabetes mellitus with diabetic neuropathy, unspecified | CPT/HCPCS: G0463 ==

== ENCOUNTER 2024-08-18 13:56 | Outpatient (OUT) | payer MEDICARE, MEDICAID, SELFPAY ==
--- OUTSIDE RECORDS SUMMARY | 2024-08-18 13:59 | XMS_ITS | Encounter Summary ---
Author Organization [facility] Address [address] [place] [address] Care Team Providers Care Ornament Setter Name Role Phone Pato Denson MD Primary Care Provider [phone] Angelo Wyatt MD Unavailable [phone] Antoinette Jeong [facility] Unavailable [phone] Encounter Details Date Type Department Care Team (Late st Contact Info) Description 10/27/2015 Transcribe Orders [facility] [address] [place] [address] Elizabeth Mohan CMA Hemorrhoids, unspecified hemorrhoid type (Primary Dx) Social History Tobacco Use Types Packs/Day Years Used Date Smoking Tobacco: Every Day Sex and Gender Information Value Date Recorded Sex Assigned at Not on file Legal Sex Male 12:57 PM EDT Gender Identity Male 01/23/2018 1:04 PM EST Sexual Orientation Straight 01/23/2018 1: 04 PM EST documented as of this encounter Plan of Treatment Not on file documented as of this encounter Visit Diagnoses Diagnosis Hemorrhoids, unspecified hemorrhoid type- Primary documented in this encounter Additional Health Concerns Infection Onset Date Last Indicated Resolved Time COVID-19 Suspected 10/09/2019 10/09/2019 0 11:46 PM EDT documented as of this encounter Care Teams Ornament Setter Relationship Specialty Start Date End Date Pato Denson MD PCP - General Internal Medicine 06/17/14 Angelo Wyatt MD [address] [place] [address] PCP - CMS Attributed Provider 06/08/19 11/28/19 Antoinette Jeong, [employer]NA[employer] [address] [place] [address] Nurse Practitioner Pulmonology 10/21/19 documented as of this encounter
--- OUTSIDE RECORDS SUMMARY | 2024-08-18 13:59 | XMS_ITS | Clinical Summary ---
Author Organization [facility] Address [address] [place] [address] Care Team Providers Care Brake Operator Helper Name Role Phone Unavailable Primary Care Provider Unavailabl e Social History Tobacco Use Types Packs/Day Years Used Date Smoking Tobacco: Never Assessed Sex and Gender Information Value Date Recorded Sex Assigned at Not on file Legal Sex Male 4:04 PM EDT Gender Identity Not on file Sexual Orientation Not on file Plan of Treatment Not on file Insurance [address] [place] [address] MEDICARE [place]ICAID [place]
--- OUTSIDE RECORDS SUMMARY | 2024-08-18 13:59 | XMS_ITS | Clinical Summary ---
Author Organization [facility] Address [address] [place] [address] Care Team Providers Care Florist Name Role Phone Pato Denson MD Primary Care Provider [phone] Antoinette Jeong [employer] [employer] Unavailable [phone] Allergies No known active allergies Medications metFORMIN (GLUCOPHAGE) 1000 MG tablet Take 1,000 mg by mouth 2 (two) times a day with meals . 7 Active acetaminophen (TYLENOL EXTRA STRENGTH) 500 MG tablet Take by mouth. Activ e atorvastatin (LIPITOR) 20 MG tablet 8 Active VICTOZA 2-ACOSTA 0.6 mg/0.1 mL (18 mg/3 mL) Pen Inject 1.2 mg under the skin daily . 8 Active omeprazole (PRILOSEC) 40 MG capsule Take 40 mg by mouth daily . 8 Active albuterol 90 mcg/actuation inhaler Inhale 2 (two) puffs every 6 (six) hours as needed for wheezing . 1 Inhaler 11 9 Active montelukast (SINGULAIR) 10 mg tablet Take 1 (one) tablet (10 mg total) by mouth nightly . 30 tablet 11 9 Active ammonium lactate (LAC-HYDRIN) 12 % lotion 0 Active glipiZIDE (GLUCOTROL) 5 MG tablet Take 5 mg by mouth 2 (two) times a day before meals . Active lisinopriL (PRINIVIL,ZESTRI L) 2.5 MG tablet Take 2.5 mg by mouth daily . Active potassium chloride SA (K-DUR,KLOR-CON) 20 MEQ tablet Take 20 mEq by mouth daily . Active mometasone-formo terol (Dulera) 200-5 mcg/actuation HFAA Inhale 2 (two) puffs (400 mcg total) 2 (two) times a day Rinse and spit after use . 1 Inhaler 11 0 Active BD Ultra-Fine Mini Pen Needle 31 gauge x /16 Ndle USE 1 NEEDLE ONCE DAILY 0 Active lancets 26 gauge Misc daily as directed . 0 Active furosemide (LASIX) 40 MG tablet TAKE 1 (ONE) TABLET DAILY NEEDED FOR SWELLING 0 Active Alcohol Prep Pads PadM USE 1 PAD DAILY 0 Active aclidinium bromide (Tudorza Pressair) 400 mcg/actuation AePB Inhale 1 (one) puff (400 mcg total) every 12 (twelve) hours . 1 each 11 0 Active Additional Information Patient not taking.Reported on 06/16/2020 ipratropium-albu teroL (DUO-NEB) 0.5-2.5 mg/3 ml nebulizer Take 3 mL by nebulization every 6 (six) hours as needed for wheezing Dx: J44.9 . 270 mL 11 0 Active Atrovent HFA 17 mcg/actuation inhaler INHALE 2 (TWO) PUFFS 2 (TWO) TIMES A DAY . 12.9 Inhaler 3 1 Active predniSONE (DELTASONE) 20 MG tabletIndication s:Chronic obstructive pulmonary disease with acute exacerbation (HCC) TAKE 2 TABLETS BY MOUTH FOR 4 DAYS THEN 1 TABLET FOR 4 DAYS . 12 tablet 1 Active ipratropium (ATROVENT) 21 mcg (0.03 %) nasal spray Instill 2 (two) sprays into each nostril 3 (three) times a day Follow-up needed. Please call office to schedule. . 30 mL 3 1 Active Active Problems Problem Noted Date Diagnosed Date Acute exacerbation of chroni c obstructive pulmonary disease (COPD) 10/10/2019 PND (paroxysmal nocturnal dyspnea) 01/23/2018 Cigarette smoker 04/01/2017 Centrilobular emphysema 11/25/2016 Obstructive sleep apnea 11/25/2016 Tobacco abuse disorder 11/25/2016 Bilateral edema of lower extremity 11/25/2016 Family History Medical History Relation Comments Cancer Mother Hypertension Mother Relation Status Comments Father Alive Mother Social History Tobacco Use Types Packs/Day Years Used Date Smoking Tobacco: Every Day Cigarettes 1 34 Smokeless Tobacco: Never Tobacco Cessation:Ready to Q uit: Yes; Counseling Given: Yes Alcohol Use Standard Drinks/Week Comments No 0 (1 standard drink = 0.6 oz pur e alcohol) Sex and Gender Information Value Date Recorded Sex Assigned at Not on file Legal Sex Male 12:57 PM EDT Gender Identity Male 01/23/2018 1:04 PM EST Sexual Orientation Straight 01/23/2018 1: 04 PM EST Last Filed Vital Signs Vital Sign Reading Time Taken Comments Blood Pressure 115/75 10/10/2019 11:13 AM EDT Pulse 114 10/10/2019 11:13 AM EDT Temperature 36.8 C (98.3 F) 10/10/2019 8:08 AM EDT Respiratory Rate 18 10/10/2019 11:1 3 AM EDT Oxygen Saturation 97% 10/10/2019 11: 13 AM EDT Inhaled Oxygen Concentration - - Weight 165.1 kg (363 lb 15.7 oz) 10/10/2019 3:56 AM EDT Height 177.8 cm (5' 10 ) 10/09/2019 10: 37 PM EDT Body Mass Index 52.23 10/09/2019 10:37 PM EDT Plan of Treatment Health Maintenance Due Date Last Done Comments CT Colonography 1969 Colonoscopy 1969 Colorectal Cancer Screening/Monitoring 1969 Fecal DNA 1969 Fecal occult blood test (FOBT,FIT) 1969 PSA Level 1969 Tetanus: Every 10yrs 1969 Wellness Visit 1972 Depression Screening/Follow- Up (PHQ-2/9) 1981 HIV Screening 1984 Hepatitis C Screening 10/12/1987 Pneumococcal Vaccine: Age 50 + (1 of 1 - PCV) 10/12/2019 Zoster Vaccines (1 of 2) 10/12/2019 COVID-19 Vaccine (3 - season) 2023, 05/18/2020 Influenza Vaccine (Season Ended) 2024 12/12/2019, 12/04/2018, 11/14/2016 Insurance [place]ICAID [place] PART A [place] Member Subscriber Plan / Payer (Ef fective 2018-Present) Name:Ector Rutledge Member ID:[id number] Relation to Subscriber:Self Name:Ector Rutledge Subscriber ID:[id number] Payer ID:Not on file Group ID:Not on file Type:Not on file Address: [facility] [place] [id number] [address] [place] [address] Advance Directives For more information, please contact: [phone] * Full Code (Latest Code Status on File) Date Activated Date Inactivated Comments 10/10/2019 4:19 AM 10/10/2019 4:28 PM Care Teams Florist Relationship Specialty Start Date End Date Pato Denson MD PCP - General Internal Medicine 06/17/14 Antoinette Jeong, [employer] [address] [place] [address] Nurse Practitioner Pulmonology 10/21/19
== END 2024-08-18 13:57 | disposition home or self-care (01) ==
LOC: WC 13:57
PROVIDERS: PCP Nurse Practitioner Family; Visit Provider Physician Assistant
DX: E11.621 Type 2 diabetes mellitus with foot ulcer (principal); L97.422 Non-pressure chronic ulcer of left heel and midfoot with fat layer exposed; L84 Corns and callosities; E11.65 Type 2 diabetes mellitus with hyperglycemia
CPT/HCPCS: G0463

== ENCOUNTER 2024-08-24 09:22 | Outpatient (OUT) | payer MEDICARE, MEDICAID, SELFPAY ==
--- OUTSIDE RECORDS SUMMARY | 2024-08-24 09:24 | XMS_ITS | Encounter Summary ---
Author Organization [facility] Address [address] [place] [address] Care Team Providers Care Transition Rn Name Role Phone Pato Denson MD Primary Care Provider [phone] Angelo Wyatt MD Unavailable [phone] Antoinette Jeong FOOD MANAGEMENT AIDE Unavailable [phone] Encounter Details Date Type Department Care Team (Late st Contact Info) Description 10/27/2015 Transcribe Orders [facility] [address] [place] [address] Elizabeth Mohan CMA Hemorrhoids, unspecified [...] documented as of this encounter Care Teams Transition Rn Relationship Specialty Start Date End Date Pato Denson MD PCP - General Internal Medicine 06/17/14 Angelo Wyatt MD [address] [place] [address] PCP - CMS Attributed Provider 06/08/19 11/28/19 Antoinette Jeong, FOOD MANAGEMENT AIDE [address] [place] [address] Nurse Practitioner Pulmonology 10/21/19 documented as of this encounter
--- OUTSIDE RECORDS SUMMARY | 2024-08-24 09:24 | XMS_ITS | Clinical Summary ---
Author Organization [facility] Address [address] [place] [address] Care Team Providers Care Threader Name Role Phone Pato Denson MD Primary Care Provider [phone] Antoinette Jeong SALVAGE ENGINEER Unavailable [phone] Allergies No known active allergies Medications metFORMIN [...] of 2) 10/12/2019 COVID-19 Vaccine (3 - 2023- season) 2023, 05/18/2020 Influenza Vaccine (#1) 2024 0, 12/04/2018, 11/14/2016 Insurance MEDICAID [place] MEDICARE PART A & B Member Subscriber Plan / Payer (Ef fective 2018-Present) Name:Ector Rutledge Member ID:[id number] Relation to Subscriber:Self Name:Ector Rutledge Subscriber ID:[id number] Payer ID:Not on file Group ID:Not on file Type:Not on file Address: [facility] J15 PART A CLAIMS [address] [address] [place] [address] Advance Directives For more information, please contact: [phone] * Full Code (Latest Code Status on File) Date Activated Date Inactivated Comments 10/10/2019 4:19 AM 10/10/2019 4:28 PM Care Teams Threader Relationship Specialty Start Date End Date Pato Denson MD PCP - General Internal Medicine 06/17/14 Antoinette Jeong, SALVAGE ENGINEER [address] [place] [address] Nurse Practitioner Pulmonology 10/21/19
--- OUTSIDE RECORDS SUMMARY | 2024-08-24 09:24 | XMS_ITS | Clinical Summary ---
Author Organization [facility] Address [address] [place] [address] Care Team Providers Care Supervisor Modern Languages Name Role Phone Unavailable Primary Care Provider Unavailabl e Social History Tobacco Use Types Packs/Day Years Used Date Smoking Tobacco: Never Assessed Sex and Gender Information Value Date Recorded Sex Assigned at Not on file Legal Sex Male 4:04 PM EDT Gender Identity Not on file Sexual Orientation Not on file Plan of Treatment Not on file Insurance [address] [place] [address] MEDICARE [place]ID [place]
== END 2024-08-24 09:23 | disposition home or self-care (01) ==
LOC: WC 09:23
PROVIDERS: PCP Nurse Practitioner Family; Visit Provider Physician Assistant
DX: S81.812D Laceration without foreign body, left lower leg, subsequent encounter (principal); E11.621 Type 2 diabetes mellitus with foot ulcer; L97.422 Non-pressure chronic ulcer of left heel and midfoot with fat layer exposed
CPT/HCPCS: 29580

== ENCOUNTER 2024-08-31 10:49 | Outpatient (OUT) | payer MEDICARE, MEDICAID, SELFPAY ==
--- OUTSIDE RECORDS SUMMARY | 2024-02-10 12:24 | XMS_ITS ---
Author Name Auto Generated Organization OHIP Care Team Providers Care Statistical Modeler Name Role Phone Jazz Hyde Attending Unavailable Jazz Hyde Admitting Unavailable PROBLEMS DATE TYPE CONDITION / CODE [facility] Unknown Unspecified open wound, right lower leg, initial encounter / S81.801A(ICD-10) Jazz Hyde Active [facility] PROCEDURES No Procedure Records Found RESULTS GRAM STAIN Observed: 02/10/2024 11:24 AM Status: F Source: [facility] Right lower leg wound Gram Stain Result 1+ White Blood Cells No Bacteria Seen PERFORMED BY: [address] [id number] PATHOLOGIST WELDER FITTER ARC GAIL KAUFMAN M.D. Performed By: #### GS, AERC #### [facility] [address] [place] [address] [facility] AEROBIC CULTURE Observed: 02/10/2024 11:24 AM Status: F Source: [facility] Right lower leg wound Result Tab Codes Light Normal Skin Breana 2 Days Right lower leg wound No Anaerobes Isolated 3 Days Right lower leg wound Gram Stain Result 1+ White Blood Cells No Bacteria Seen PERFORMED BY: [address] [id number] PATHOLOGIST WELDER FITTER ARC GAIL KAUFMAN M.D. Performed By: #### GOSIA, AERC #### [facility] [address] [place] [address] [facility] ALLERGIES DATE TYPE / CODE NAME / CODE REACTION SEVERITY SOURCE 02/10/2024 Drug Allergy/781714548 (SNOMED CT) No Known Allergies/[id number](RXNORM) Unknown [facility] ENCOUNTERS ADMIT/DISCHARGE ACCOUNT NUMBER ADMITTING ENCOUNTER CLASS LOCATION SOURCE 02/10/2024/ [address] [id number] [facility] PAYERS ENCOUNTER GUARANTOR PAYER SUBSCRIBER SOURCE 02/10/2024 Ernie Rutledge [id number] [place] [phone]: () Primary Insurance:Medicare Policy Number: [id number] ve Date:2024-02-10 Ernie Rutledge JRB: [id number] [place] [phone]: () [facility] 02/10/2024 Secondary Insurance:Medicaid Policy Number: [id number] prashant Date:2024-02-10 Ernie Rutledge DOB: [id number] [place] [phone]: () [facility] 02/10/2024 Tertiary Insurance:Self PayPolicy Number: Effective Date:2024-02-10 [facility]
--- OUTSIDE RECORDS SUMMARY | 2024-08-23 11:48 | XMS_ITS | Continuity of Care Document ---
Author Organization [facility] Address [address] [place] [address] Phone Care Team Providers Care Warehouse Incentive Selector Name Role Phone Jazz Hyde APRN Primary Care Provider Jazz Hyde APRN Attending Provider Care Teams Patient Care Team Team Status: Active Member Role Status Dates Jazz Hyde APRN DIRECTOR OF TRANSPORTATION-C Primary Care Provider Active Visit Care Team Team Status: Inactive Member Role Status Dates Jazz Hyde APRN DIRECTOR OF TRANSPORTATION-C Primary Care Provider Active Start: June 28, 2024 End: June 28, 2024 Jazz Hyde APRN DIRECTOR OF TRANSPORTATION-C Attending Provider Act prashant Start: June 28, 2024 End: June 28, 2024 Patient Care Team Team Status: Inactive Member Role Status Dates Jazz Hyde APRN DIRECTOR OF TRANSPORTATION-C Primary Care Provider Active Start: August 23, 2024 End: August 23, 2024 Jazz Hyde APRN DIRECTOR OF TRANSPORTATION-C Attending Provider Act prashant Start: August 23, 2024 End: August 23, 2024 Chief Complaint and Reason for Visit Chief Complaint Admit Date 3 month f/u June 28, 2024 8:23am left legs red, sore August 23, 2024 3:21 pm Reason for Visit Admit Date Chronic obstructive pulmonary disease (C OPD) June 28, 2024 8:23am Current smoker June 28, 2024 8:23am Foot ulcer due to secondary DM June 28, 2024 8:23am Hyperlipemia June 28, 2024 8:23am Hypertension June 28, 2024 8:23am Screening for prostate cancer June 28, 2 025 8:23am Sleep apnea June 28, 2024 8:23am Type 2 diabetes mellitus June 28, 2024 8 :23am Venous insufficiency June 28, 2024 8:23a m Chronic obstructive pulmonary disease (C OPD) August 23, 2024 3:21pm Left leg cellulitis August 23, 2024 3:21 pm Venous insufficiency (chronic) (peripher al) August 23, 2024 3:21pm Wound of left lower extremity August 23, 2024 3:21pm Allergies, Adverse Reactions, Alerts Allergen Type Severity Reaction Last Updated Verified Status No Known Allergies Allergy Unknown August 23, 2024 3:25p m Yes Active Social History Smoking Status Status Start Date End Date Date of Observa tion Smokes tobacco daily (finding) August 18, 2023 8:39am Observation Status Observation Response Date of Response Legal Sex Male (finding) Sex Assigned At Male September h, 1970 Family History Relationship Condition Age at Onset Recorded Date/T cesar Not Specified Malignant neoplasm Unknown Problems Active Problems Medical Problem Onset Date Status Medicare annual wellness visit, subsequent Unkno wn Active Screening for prostate cancer Unknown Ac tive Screening for colon cancer Unknown Activ e Left leg cellulitis Unknown Active Lower back pain Unknown Active Sleep apnea Unknown Active Muscle spasm Unknown Active Type 2 diabetes mellitus Unknown Active Wound of right lower extremity Unknown A ctive Wound of left lower extremity Unknown Ac tive Cellulitis of lower extremity Unknown Ac tive Gastritis Unknown Active Wellness examination Unknown Active Hyperlipemia Unknown Active Venous insufficiency Unknown Active Right foot pain Unknown Active Foot ulcer due to secondary DM Unknown A ctive Chronic obstructive pulmonary disease (COPD) Unk nown Active Venous insufficiency (chronic) (peripheral) Unkn own Active Dental abscess Unknown Active COPD exacerbation Unknown Active GERD (gastroesophageal reflux disease) Unknown Active Hypertension Unknown Active Current smoker Unknown Active Medications Medication Status Dose Units Route Directions Qty Days St art Date Stop Date End Date Instructions Adherence Ipratropium -Albuterol 0.5 mg-3 mg(2.5 mg base)/3 mL solution for nebulizatio n Discont inued 3 ML INHALA TION EVERY 4-6 HOURS as needed for shortness of breath or wheezing 90 August 25, 2023 12:00a m August 25, 2023 9:29a m Budesonide- Glycopyr-Fo rmoterol (Breztri Aerosphere) 160-9-4.8 mcg/actuati on HFA aerosol inhaler Active 2 INH INHALA TION Twice daily 5.9 30 August 25, 2023 9:28am Complies with drug therapy Ipratropium -Albuterol 0.5 mg-3 mg(2.5 mg base)/3 mL solution for nebulizatio n Discont inued 3 ML INHALA TION EVERY 4-6 HOURS as needed for shortness of breath or wheezing 90 30 August 25, 2023 9:29am [facility] 2023 11:21 am Ipratropium -Albuterol 0.5 mg-3 mg(2.5 mg base)/3 mL solution for nebulizatio n Discont inued 3 ML INHALA TION EVERY 4-6 HOURS as needed for shortness of breath or wheezing 90 30 2023 11:21a m [facility] 2023 11:35 am Ipratropium Chunky 0.02 % solution Discont inued 3 ML INHALA TION Every 6 hours as needed for shortness of breath or wheezing 150 2023 11:35a m [facility] 2023 4:41p m Ipratropium -Albuterol 0.5 mg-3 mg(2.5 mg base)/3 mL solution for nebulizatio n Discont inued 3 ML INHALA TION every 6 to 8 hours as needed 2023 12:00a m [facility] 2023 8:03a m Ipratropium -Albuterol 0.5 mg-3 mg(2.5 mg base)/3 mL solution for nebulizatio n Discont inued 3 ML INHALA TION every 6 to 8 hours as needed for shortness of breath or wheezing 90 2023 8:02am Octob er 2023 8:44a m Liraglutide (Victoza 2-Josué) 0.6 mg/0.1 mL (18 mg/3 mL) pen injector Discont inued 0 SUBCUT .COMPLEX 6 Novemb er 2023 2:32pm Febru radha 2024 9:46a m inject 0.6mg subcutaneousl y once daily Albuterol Sulfate (Ventolin Hfa) 90 mcg/actuati on HFA aerosol inhaler Active 2 PUFF INHALA TION Every 4 hours as needed for shortness of breath or wheezing 6.7 Novemb er 2023 10:12a m Complies with drug therapy Atorvastati n 20 mg tablet Discont inued 20 MG PO Daily Novemb er 2023 10:12a m June 28, 2024 8:42a m Fluticasone Propionate 50 mcg/actuati on spray,suspe nsion Discont inued 2 SPRAY INTRAN BRANDI Daily Novemb er 2023 10:13a m Febru radha 2024 9:46a m Glipizide 10 mg tablet Discont inued 10 MG PO Twice daily 90 Novemb er 2023 10:13a m Decem ben 2023 9:08a m Ipratropium -Albuterol 0.5 mg-3 mg(2.5 mg base)/3 mL solution for nebulizatio n Active 3 ML INHALA TION every 6 to 8 hours as needed for shortness of breath or wheezing 180 90 Novemb er 2023 10:13a m Complies with drug therapy Lisinopril 5 mg tablet Discont inued 5 MG PO Daily 90 Novemb er 2023 10:14a m June 28, 2024 8:42a m Metformin 1,000 mg tablet Discont inued 1000 MG PO Twice daily Novemb er 2023 10:14a m May 17, 2024 7:56a m Montelukast 10 mg tablet Discont inued 10 MG PO Daily 90 Novemb er 2023 10:15a m June 22, 2024 7:55a m Omeprazole 40 mg capsule,del ayed release(DR/ EC) Discont inued 40 MG PO Daily Novemb er 2023 10:15a m June 28, 2024 8:42a m Potassium Chloride (Klor-Con M20) 20 mEq tablet,ER particles/c rystals Discont inued 20 MEQ PO Daily Novemb er 2023 10:16a m August 16, 2024 4:34p m Glipizide 10 mg tablet Discont inued 10 MG PO Twice daily 90 Decemb er 2023 9:08am June 28, 2024 8:42a m Blood-Gluco se Meter (Accu-Chek Guide Glucose Meter) mis Active 0 .Route 1 [facility] er 2023 1:00am As directed Blood Sugar Diagnostic (Accutrend Glucose Test Strips) strip Discont inued 0 .Route 50 [facility] er 2023 1:00am [facility] ben 2023 11:07 am As directed Lancets (Accu-Chek Softclix Lancets) misc Discont inued 0 .Route 100 [facility] er 2023 1:00am [facility] ben 2023 11:07 am As directed Alcohol Swabs (Bd Alcohol Swabs) pads, medicated Discont inued 0 TOPICA L .BID 100 [facility] 2023 1:00am Febru [id number] 9:54a m pad topically BID; Blood Sugar Diagnostic (Accutrend Glucose Test Strips) strip Active 0 .Route 50 [facility] 2023 11:05a m As directed Lancets (Accu-Chek Softclix Lancets) misc Discont inued 0 .Route 100 [facility] 2023 11:06a m Febru [email or web address] 9:53a m As directed Pen Needle, Diabetic (Sure-Fine Pen [facility]) 31 gauge x 5/16 needle Active 0 .Route 100 [facility] 2023 1:00am As directed Metformin 1,000 mg tablet Active 0 .ROUTE .COMPLEX 180 May 17, 2024 7:56am TAKE 1 TABLET BY MOUTH TWICE A DAY Complies with drug therapy Montelukast 10 mg tablet Active 10 MG PO Daily June 22, 2024 7:55am Complies with drug therapy Ipratropium Chunky 21 mcg (0.03 %) spray,non-a erosol Active 2 SPRAY INTRAN BRANDI Twice daily June 28, 2024 7:53am administer into each nostril Complies with drug therapy Ammonium Lactate 12 % cream Discont inued 1 APPLIC TOPICA L Twice daily as needed for dry skin 385 July 12, 2024 7:42am August 17, 2024 10:40 am Potassium Chloride (Klor-Con M20) 20 mEq tablet,ER particles/c rystals Active 20 MEQ PO Daily 90 August 16, 2024 4:34pm Complies with drug therapy Ammonium Lactate 12 % cream Active 1 APPLIC TOPICA L Twice daily as needed for dry skin 385 August 17, 2024 10:40a m Complies with drug therapy Ipratropium -Albuterol 0.5 mg-3 mg(2.5 mg base)/3 mL solution for nebulizatio n Discont inued 3 ML INHALA TION every 6 to 8 hours as needed for shortness of breath or wheezing 180 90 Octobe r 2023 8:44am Octob er 2023 8:45a m Ipratropium -Albuterol 0.5 mg-3 mg(2.5 mg base)/3 mL solution for nebulizatio n Discont inued 3 ML INHALA TION every 6 to 8 hours as needed for shortness of breath or wheezing 180 90 Octobe r 2023 8:44am Novem ben 2023 10:16 am Prednisone 10 mg tablet Discont inued 10 MG PO daily Novobe r 2023 12:00a m Novem ben 2023 9:21a m Take 40 mg for 2 days, 30 mg for 2 days, 20 mg for 2 days, 10 mg for 2 days, 1/2 tablet for 2 days Liraglutide (Victoza 2-Josué) 0.6 mg/0.1 mL (18 mg/3 mL) pen injector Discont inued 0 SUBCUT .COMPLEX 6 Octobe r 2023 12:00a m Novem ben 2023 9:21a m inject 0.6mg subcutaneousl y once daily Prednisone 10 mg tablet Discont inued 10 MG PO daily b er 2023 9:20am Dece 2023 12:17 pm Take 40 mg for 2 days, 30 mg for 2 days, 20 mg for 2 days, 10 mg for 2 days, 1/2 tablet for 2 days Liraglutide (Victoza 2-Josué) 0.6 mg/0.1 mL (18 mg/3 mL) pen injector Discont inued 0 SUBCUT .COMPLEX 6 b er 2023 9:20am Novem ben 2023 2:32p m inject 0.6mg subcutaneousl y once daily Glipizide 10 mg tablet Discont inued 10 MG PO Twice daily August 18, 2023 12:00a m Novem ben 2023 10:16 am Fluticasone Propionate 50 mcg/actuati on spray,suspe nsion Discont inued 2 SPRAY INTRAN BRANDI Daily August 18, 2023 12:00a m Novem 2023 10:16 am Budesonide- Glycopyr-Fo rmoterol (Breztri Aerosphere) 160-9-4.8 mcg/actuati on HFA aerosol inhaler Discont inued 2 INH INHALA TION Twice daily August 18, 2023 12:00a m August 25, 2023 9:29a m Semaglutide (Ozempic) 1 mg/dose (4 mg/3 mL) pen injector Discont inued 1 MG SUBCUT every week August 18, 2023 12:00a m August 18, 2023 8:50a m Metformin 1,000 mg tablet Discont inued 1000 MG PO Twice daily August 18, 2023 12:00a m Novem 2023 10:16 am Potassium Chloride (Klor-Con M20) 20 mEq tablet,ER particles/c rystals Discont inued 20 MEQ PO Daily August 18, 2023 12:00a m Novem 2023 10:16 am Ipratropium Chunky 21 mcg (0.03 %) spray,non-a erosol Discont inued 2 SPRAY INTRAN BRANDI Three times daily as needed August 18, 2023 12:00a m August 25, 2023 7:58a m Atorvastati n 20 mg tablet Discont inued 20 MG PO Daily August 18, 2023 12:00a m Novem 2023 10:16 am Montelukast 10 mg tablet Discont inued 10 MG PO Daily August 18, 2023 12:00a m Novem ben 2023 10:16 am Lisinopril 5 mg tablet Discont inued 5 MG PO Daily August 18, 2023 12:00a m Novem 2023 10:16 am Omeprazole 40 mg capsule,del ayed release(DR/ EC) Discont inued 40 MG PO Daily August 18, 2023 12:00a m Novem 2023 10:16 am Albuterol Sulfate (Ventolin Hfa) 90 mcg/actuati on HFA aerosol inhaler Discont inued 2 PUFF INHALA TION Every 4 hours as needed August 18, 2023 12:00a m Novem ben 2023 10:16 am Prednisone 10 mg tablet Discont inued 10 MG PO As Directed August 18, 2023 12:00a m August 18, 2023 8:53a m see taper instructions Dulaglutide (Trulicity) 0.75 mg/0.5 mL pen injector Discont inued 0.75 MG SUBCUT every week 2.5 August 18, 2023 12:00a m Octob er 2023 8:38a m Dicyclomine 20 mg tablet Discont inued 20 MG PO Three times daily 60 30 August 18, 2023 12:00a m Octob er 2023 8:38a m Liraglutide (Victoza 2-Josué) 0.6 mg/0.1 mL (18 mg/3 mL) pen injector Discont inued 1.2 MG SUBCUT Daily 18 90 2024 9:45am June 28, 2024 8:41a m Ipratropium Chunky 21 mcg (0.03 %) spray,non-a erosol Discont inued 2 SPRAY INTRAN BRANDI Twice daily 30 2024 1:00am June 28, 2024 7:53a m administer into each nostril Ammonium Lactate 12 % cream Discont inued 1 APPLIC TOPICA L Twice daily as needed for dry skin 385 2024 1:00am July 12, 2024 7:42a m Lancets (Accu-Chek Softclix Lancets) misc Active 0 .Route 100 2024 9:53am As directed Alcohol Swabs (Bd Alcohol Swabs) pads, medicated Active 0 TOPICA L .BID 100 2024 9:54am pad topically BID; Complies with drug therapy Doxycycline Monohydrate 100 mg tablet Discont inued 100 MG PO Twice daily 20 10 Decemb er 2023 1:00am Febru radha 2024 9:46a m Tizanidine 2 mg tablet Discont inued 2 MG PO Every 8 hours as needed for muscle spasticity 30 10 Decemb er 2023 1:00am August 23, 2024 3:25p m Liraglutide (Victoza 2-Josué) 0.6 mg/0.1 mL (18 mg/3 mL) pen injector Active 1.8 MG SUBCUT Daily June 28, 2024 8:40am Complies with drug therapy Atorvastati n 20 mg tablet Active 20 MG PO Daily June 28, 2024 8:41am Complies with drug therapy Glipizide 10 mg tablet Active 10 MG PO Twice daily June 28, 2024 8:41am Complies with drug therapy Lisinopril 5 mg tablet Active 5 MG PO Daily June 28, 2024 8:41am Complies with drug therapy Omeprazole 40 mg capsule,del ayed release(DR/ EC) Active 40 MG PO Daily June 28, 2024 8:41am Complies with drug therapy Amoxicillin -Pot Clavulanate 875-125 mg tablet Discont inued 1 TAB PO Twice daily 13 12April 28, 2024 1:00am June 28, 2024 8:30a m Cephalexin 500 mg capsule Active 500 MG PO Three times daily 23 12August 23, 2024 12:00a m Complies with drug therapy Guaifenesin (Mucus Relief Er) 1,200 mg tablet extended release 12hr Active 1200 MG PO Daily at bedtime August 23, 2024 12:00a m Complies with drug therapy Relevant Diagnostic Tests and/or Laboratory Data Laboratory Results Test Collection Date/Time Result Date/Time Result Interpretation Reference Range Result Comment Performing Site Bedside Hemoglobin A1c June 28, 2024 8:37am June 28, 2024 8:39am 6.7 % Vital Signs Vital Reading Result Reference Range Collection Date/Time Height 70 [in_i] June 28, 2024 8 :27am Weight 166.46 kg June 28, 2024 8 :27am Body Temperature 96.9 [degF] 97.6-99.0 June 28 8:27am Heart Rate 60 /min 60-100 June 28, 2024 8 :27am Oxygen saturation by Pulse oximetry 94 % 95-100 June 28, 2024 8:27am BP Systolic 122 mm[Hg] 100-140 June 28, 2024 8 :27am BP Diastolic 70 mm[Hg] 60-100 June 28, 2024 8 :27am BMI (Body Mass Index) 52.6 kg/m2 June 8:27am Height 70 [in_i] August 23, 2024 3:24pm Weight 163.74 kg August 23, 2024 3:24pm Heart Rate 81 /min 60-100 August 23, 2024 3:24pm Respiratory rate 12 /min -August 23, 2024 3:24pm Oxygen saturation by Pulse oximetry 95 % 95-100 August 23, 2024 3:24 pm BP Systolic 112 mm[Hg] 100-140 August 23, 2024 3:24pm BP Diastolic 62 mm[Hg] 60-100 August 23, 2024 3:24pm BMI (Body Mass Index) 51.7 kg/m2 July 272024 3:24pm Advance Directives Advance Directive Response Recorded Date/ Time Advance Directives No August 17 8:25am Insurance Providers Guarantor Ernie Rutledge JR Address [address] [place] [address] Contact Info. Home Phone: Payer Policy Id Subscriber's Name Subscriber Id Effective Date Expiration Date Medicaid [id number] Ernie Rutledge JR [id number] [facility] Medicaid [id number] Ernie Rutledge JR [id number] Encounters Encounter Location(s) Arrival/Admit Date Discharge/Depart Date Provider(s) Departed Physician/Prov ider Office Visit -[facility] June 28, 2024 8:23am June 28, 2024 8:57am Jazz Hyde APRN CNP Departed Physician/Prov ider Office Visit -[facility] August 23, 2024 3:21pm August 23, 2024 3:47pm Jazz Hyde APRN CNP Recent Diagnosis Onset Date Admit Date Chronic obstructive pulmonary disease (COPD) Unk nown June 28, 2024 8:23am Current smoker Unknown June 28, 2024 8: 23am Foot ulcer due to secondary DM Unknown M ay 2024 8:23am Hyperlipemia Unknown June 28, 2024 8: 23am Hypertension Unknown June 28, 2024 8: 23am Screening for prostate cancer Unknown Ma y 2024 8:23am Sleep apnea Unknown June 28, 2024 8: 23am Type 2 diabetes mellitus Unknown June 8:23am Venous insufficiency Unknown June 28 8:23am Chronic obstructive pulmonary disease (COPD) Unk nown August 23, 2024 3:21pm Left leg cellulitis Unknown August 23 025 3:21pm Venous insufficiency (chronic) (peripheral) Unkn own August 23, 2024 3:21pm Wound of left lower extremity Unknown Ju ne 2024 3:21pm Assessments Diagnosis Onset Date Resolution Status Admit Date Chronic obstructive pulmonar y disease (COPD) acute June 28, 2024 8: 23am Current smoker acute June 28 025 8:23am Foot ulcer due to secondary DM acute June 28, 2024 8:23am Hyperlipemia acute June 28 8:23am Hypertension acute June 28 8:23am Screening for prostate cancer acute June 28, 2024 8:23am Sleep apnea acute June 28, 2024 8:23am Type 2 diabetes mellitus acute June 28, 2024 8:23am Venous insufficiency acute June 28, 2024 8:23am Chronic obstructive pulmonar y disease (COPD) acute August 23, 2024 3:21pm Left leg cellulitis acute August 23, 2024 3:21pm Venous insufficiency (chroni c) (peripheral) acute August 23, 2024 3:21pm Wound of left lower extremity acute August 23, 2024 3:21pm Plan of Treatment Author Jazz Hyde [facility] Authored June 29, 2024 1:43pm A1c 6.7 Increased Victoza dose today in office. Continue metformin and glipizide. Patient is advised to work on healthy diet choices and appropriate servings, weight control, regular exercise as directed, reduced fat intake, and salt avoidance. Patient voiced understanding of this and agrees to this plan. Prior to your visit today we reviewed your chart and outlined the testing and treatment needed for your care. We discussed possible complications of diabetes including risk of heart disease, stroke, and kidney disease. Your goal is to keep your HgA1C below 7 (preferably <6.5) and your blood pressure less than 130/85 (and preferably < 120/80) and maintaining a healthy weight with a BMI less than 26. We are working together to achieve these goals with the following plan; healthier diet, understanding your medications, and your compliance. Barriers to these goals have been discussed. To goal. Continue on Lisinopril Prior to your visit today we reviewed your chart and outlined the testing and treatment needed for your care. We discussed the possible complications of high blood pressure, including increased risk for heart disease, stroke, and kidney disease. Our goal is to keep your blood pressure below 130/85 (an preferably < 120/80) and maintain a healthy weight with a BMI less than 26. We are working together to achieve these goals with the following plan; healthier diet, increased activity and exercise, understanding your medications, and your compliance. Due for labs. Continue atorvastatin Discussed importance of maintaining an LDL level at specified goal. Discussed associated risk factors of hyperlipidemia including stroke and heart attack. Treatment with medications discussed and we have agrees upon appropriate action of treatment and goals. Discussed dietary modifications, including decreasing red meat consumption, decreased alcohol consumption, avoiding fried foods, and cake and cookies, and sweets. Encouraged increasing fiber in diet and eat a diet rich in omega-3. Encouraged to exercise at least 150 minutes weekly. Barriers to plan of care have been addressed. Follow-up as directed. He is following with pulmonology- Dr. Frias. Review office notes as they are received. Next follow-up is in July. Stable on current regimen of medications. Continue Breztri. Prior to your visit today we reviewed your chart and outlined the testing and treatment needed for your care.We discussed the possible complications of COPD , including increased risk for acute exacerbation and respiratory failure. Our goal is to keep your COPD under control to avoid exacerbation and hospitalizations. maintain a healthy weight with a BMI less than 26. We are working together to achieve these goals with the following plan; healthier diet, increased activity and exercise, understanding your medications and your compliance, Wears CPAP nightly with benefit. Pt needs diabetic foot care- is unable to cut his own toe nails-- He now does follow with Dr. Padilla. Discussed that this occurs when your leg veins don t allow blood to flow back up to your heart. Normally, the valves in your veins make sure that blood flows toward your heart. But when these valves don t work well, blood can also flow backwards. This can cause blood to collect (pool) in your legs. Wear compression socks and elevate legs. Reports that he has nicotine patches at but has not uses them. Denies wanting to trial on chantix to stop smoking. Notes that he may start the nicotine patches he has started to think about quiting We discussed possible complications of smoking including risk of heart disease, stroke, lung disease, and increase risk of cancer. Your goal is to quit smoking. The availability, risks, and benefits of medication used to treat nicotine addiction as relevant to you have been discussed. We are working together to achieve these goals with the following plan; barriers to these goals have been discussed. You have been given relevant education handouts and a summary of your care plan. Your next follow-up visit for this problem is six months, we will continue to ask progress for quitting and willingness to quit at each appointment. Risks and benefits of PSA screening discussed with patient today. Patient wishes to get PSA screening done. PSA screening lab ordered today. Left foot. Dressing intact. Under the care of the wound center at [place] with Dr. Padilla. Follow-up scheduled for next week. Future Tests Future scheduled test information is unavailable Pending Tests Pending diagnostic test information is unavailable Future Visits Future appointment information is unavailable Referrals to Other Providers Referral information is unavailable Future Procedures Future procedure information is unavailable Future Medications Future medication information is unavailable Patient Instructions Patient instructions are unavailable
--- OUTSIDE RECORDS SUMMARY | 2024-08-31 10:51 | XMS_ITS | Encounter Summary ---
Author Organization [facility] Address [address] [place] [address] Care Team Providers Care Package Designer Name Role Phone Pato Denson MD Primary Care Provider [phone] Angelo Wyatt MD Unavailable [phone] Antoinette Jeong SENIOR REPORT DEVELOPER Unavailable [phone] Encounter Details Date Type Department Care Team (Late st Contact Info) Description 10/27/2015 Transcribe Orders [facility] [address] [place] [address] Elizabeth Mohan CMA Hemorrhoids, unspecified [...] documented as of this encounter Care Teams Package Designer Relationship Specialty Start Date End Date Pato Denson MD PCP - General Internal Medicine 06/17/14 Angelo Wyatt MD [address] [place] [address] PCP - CMS Attributed Provider 06/08/19 11/28/19 Antoinette Jeong, SENIOR REPORT DEVELOPER [address] [place] [address] Nurse Practitioner Pulmonology 10/21/19 documented as of this encounter
--- OUTSIDE RECORDS SUMMARY | 2024-08-31 10:51 | XMS_ITS | Clinical Summary ---
Author Organization [facility] Address [address] [place] [address] Care Team Providers Care Environmental Health And Safety Intern Name Role Phone Unavailable Primary Care Provider Unavailabl e Social History Tobacco Use Types Packs/Day Years Used Date Smoking Tobacco: Never Assessed Sex and Gender Information Value Date Recorded Sex Assigned at Not on file Legal Sex Male 4:04 PM EDT Gender Identity Not on file Sexual Orientation Not on file Plan of Treatment Not on file Insurance [address] [place] [address] [place]ARE [place]
--- OUTSIDE RECORDS SUMMARY | 2024-08-31 10:51 | XMS_ITS | Clinical Summary ---
Author Organization [facility] Address [address] [place] [address] Care Team Providers Care Entrepreneur Name Role Phone Pato Denson MD Primary Care Provider [phone] Antoinette Jeong MOTOR BOSS Unavailable [phone] Allergies No known active allergies Medications metFORMIN (GLUCOPHAGE) 1000 MG tablet Take 1,000 mg by mouth 2 (two) times a day with meals . 7 Active acetaminophen (TYLENOL EXTRA STRENGTH) 500 MG tablet Take by mouth. Activ e atorvastatin (LIPITOR) 20 MG tablet 8 Active VICTOZA 2-CAOSTA 0.6 mg/0.1 mL (18 mg/3 mL) Pen [...] (#1) 2024 0, 12/04/2018, 11/14/2016 Insurance MEDICAID [place] MEDICARE PART A & B Member Subscriber Plan / Payer (Ef fective 2018-Present) Name:Ector Rutledge Member ID:[id number] Relation to Subscriber:Self Name:Ector Rutledge Subscriber ID:[id number] Payer ID:Not on file Group ID:Not on file Type:Not on file Address: [facility] [address] PART A CLAIMS [address] [address] [place] [address] Advance Directives For more information, please contact: [phone] * Full Code (Latest Code Status on File) Date Activated Date Inactivated Comments 10/10/2019 4:19 AM 10/10/2019 4:28 PM Care Teams Entrepreneur Relationship Specialty Start Date End Date Pato Denson MD PCP - General Internal Medicine 06/17/14 Antoinette Jeong, MOTOR BOSS [address] [place] [address] Nurse Practitioner Pulmonology 10/21/19
== END 2024-08-31 10:50 | disposition home or self-care (01) ==
LOC: WC 10:49
PROVIDERS: PCP Nurse Practitioner Family; Visit Provider Physician Assistant
DX: S81.812A Laceration without foreign body, left lower leg, initial encounter (principal)
CPT/HCPCS: A6213; G0463

== ENCOUNTER 2024-09-14 09:21 | Outpatient (OUT) | payer MEDICARE, MEDICAID, SELFPAY ==
--- OUTSIDE RECORDS SUMMARY | 2024-09-06 05:03 | XMS_ITS ---
Author Organization [facility] [place] Address [address] [place] [address] Care Team Providers Care Supervisor Labor Gang Name Role Phone Jazz Hyde CNP Primary Care Provider U karissa FriasEbenezer [phone] REASON FOR VISIT PAP Machine Encounters Encounter Location Date Provider Diagnosis Pulmonary Medicine [place] [address] [place] [address] 09/06/2024 Ebenezer Frias Plan Of Treatment No Information Progress Notes * Ernie GUERIN JrDOB:[birth year] (53 yo M)Acc No.[id number]:09/06/2024 Patient: Nicholas Ernie DUEÑAS Jr :1970 A ge:53 Y S ex:Male Address:[address] [place] [address], [address], [place], [address] * true * Date: Generated for Evelyni april/Joshg/eTransmitting on: 0 09/14/2024 09:23 AM EDT
--- OUTSIDE RECORDS SUMMARY | 2024-09-13 07:30 | XMS_ITS ---
Author Organization [facility] [place] Address [address] [place] [address] Care Team Providers Care Extruder Operator Name Role Phone Jazz Hyde CNP Primary Care Provider U karissa IrizarryEbenezer [phone] REASON FOR VISIT Sleep Study/Machine Encounters Encounter Location Date Provider Diagnosis Pulmonary Medicine [place] [address] [place] [address] 09/13/2024 Ebenezer Frias Plan Of Treatment No Information Progress Notes * Ernie GUERIN JrDOB:[birth year] (53 yo M)Acc No.[id number]:09/13/2024 UNLOCKED PROGRESS NOTE Patient: Nicholas Ernie DUEÑAS Jr :1970 A ge:53 Y S ex:Male Address:[address] [place] [address], [address], [place], [address] * * Date:
--- OUTSIDE RECORDS SUMMARY | 2024-09-14 09:23 | XMS_ITS | Encounter Summary ---
Author Organization [facility] Address [address] [place] [address] Care Team Providers Care Personal Lines Insurance Agent Name Role Phone Pato Denson MD Primary Care Provider [phone] Angelo Wyatt MD Unavailable [phone] Antoinette Jeong [facility] Unavailable [phone] Encounter Details Date Type Department Care Team (Late st Contact Info) Description 10/27/2015 Transcribe Orders [facility] [address] [place] [address] Elizabeth Mohan CMA Hemorrhoids, unspecified [...] documented as of this encounter Care Teams Personal Lines Insurance Agent Relationship Specialty Start Date End Date Pato Denson MD PCP - General Internal Medicine 06/17/14 Angelo Wyatt MD [address] [place] [address] PCP - CMS Attributed Provider 06/08/19 11/28/19 Antoinette Jeong, BELL VALET [address] [place] [address] Nurse Practitioner Pulmonology 10/21/19 documented as of this encounter
--- OUTSIDE RECORDS SUMMARY | 2024-09-14 09:24 | XMS_ITS | Clinical Summary ---
Author Organization [facility] Address [address] [place] [address] Care Team Providers Care Transfer Agent Name Role Phone Unavailable Primary Care Provider Unavailabl e Social History Tobacco Use Types Packs/Day Years Used Date Smoking Tobacco: Never Assessed Sex and Gender Information Value Date Recorded Sex Assigned at Not on file Legal Sex Male 4:04 PM EDT Gender Identity Not on file Sexual Orientation Not on file Plan of Treatment Not on file Insurance [address] [place] [address] [place]ICARE [place]ID [place]
--- OUTSIDE RECORDS SUMMARY | 2024-09-14 09:24 | XMS_ITS | Patient Health Record ---
Author Organization [facility] in [place] Address [address] [place] [address] Care Team Providers Care Superintendent Schools Name Role Phone Jazz Hyde CNP Primary Care Provider Funmi wagnerangie DierksAnny Unavailable [phone] Jac Matthew Unavailable [phone] Allergies No Known Allergies Results Component Value Reference Range Notes CT chest wo con Reviewed date:02/11/2024 07:41:06 AM Interpretation: Performing Lab: Notes/Report: Source Facility: [place] [address] CT Scan Report Signed Patient: FRANKO GUERIN MR#: [id number] : 1970 Acct:[id number] Age/Sex: 53 / M ADM Date: 02/06/24 Loc: CT Attending Dr: Jac Matthew D.O. Ordering Physician: Jac Matthew D.O. Date of Service: 02/06/24 Procedure(s): CT chest wo con Accession Number(s): [id number] cc: Franchesca Don NP [place] [id number] Patient Name: FRANKO GUERIN MRN: [id number] date: 1970 Sex: M Assigned Patient Location: CT Current Patient Location: Accession/Order Number: [id number] Exam Date: 02/06/2024 08:01 Report Date: 02/09/2024 12:54 At the request of: JAC MATTHEW Procedure: CT chest wo con EXAMINATION: CT chest wo con HISTORY: Right lower lobe lung mass R91.8 COMPARISON: 08/11/2023, 07/28/2023 TECHNIQUE: Multi-planar CT images were created with IV contrast. Axial, Coronal, and Sagittal images. Dose reduction techniques were achieved by using automated exposure control and/or adjustment of mA and/or kV according to patient size and/or use of iterative reconstruction technique. FINDINGS: LUNGS: Again demonstrated are patchy linear opacities throughout both lungs most significant in the medial basilar segment of the right lower lobe, unchanged. No new parenchymal infiltrate nodule or mass is identified PLEURA: No pneumothorax or new pleural effusion VASCULATURE: No abnormality. WILFREDO: No mass or adenopathy. MEDIASTINUM: No mass or adenopathy. CARDIAC: No enlargement or pericardial effusion Coronary arteries: Moderate calcifications AORTA: No aortic aneurysm CHEST WALL: No mass or axillary adenopathy. BONES: No bone lesion or fracture. LIMITED ABDOMEN: No suspicious findings. Limited images of the upper abdomen. OTHER: Negative. CT/CT chest wo con IMPRESSION: Stable patchy and linear opacities most significant in the right lower lobe Electronically authenticated by: NO BURLESON Date: 02/09/2024 12:54 Dictated By: No Burleson M.D. Signed By: 02/09/24 1257 DD/ 1254 TD/TT: Burrito Maker: [place] [address] CT Scan Report Signed Patient: NAIF GUERIN A MR#: [id number] : 1970 Acct:[id number] Age/Sex: 53 / M ADM Date: 02/06/24 Loc: CT Attending Dr: aJc Matthew D.O. Ordering Physician: Jac Matthew D.O. Date of Service: 02/06/24 Procedure(s): CT chest wo con Accession Number(s): [id number] cc: Franchesca Don NP [address] [address] Patient Name: FRANKO GUERIN MRN: [id number] date: 1970 Sex: M Assigned Patient Location: CT Current Patient Location: Accession/Order Wilber er: [id number] Exam Date: 08:01 Report Date: 02/09/2024 12:54 At the request of: JAC MATTHEW Procedure: CT chest wo con EXAMINATION: CT chest wo con HISTORY: Right lower lobe lung mass R91.8 COMPARISON: 08/11/2023, 07/28/2023 TECHNIQUE: Multi-agnieszka shira CT images were created with IV contrast. Axial, Coronal, and Sagitta l images. Dose reduction techniques were achieved by using automated exposure c ontrol and/or adjustment of mA and/or kV according to patient size and/or use of iterative reconstruction technique. FINDINGS: LUNGS: Again demonst rated are patchy linear opacities throughout both lungs most significant in the medial basilar segment of the right lower lobe, unchanged. No new pa renchymal infiltrate nodule or mass is identified PLEURA: No pneumotho rax or new pleural effusion VASCULATURE: No abnormality. WILFREDO: No mass or adenopathy. MEDIASTINUM: No mass or adenopathy. CARDIAC: No enlargem ent or pericardial effusion Coronary arteries: M oderate calcifications AORTA: No aortic aneurysm CHEST WALL: No mass or axillary adenopathy. BONES: No bone lesio n or fracture. LIMITED ABDOMEN: No suspicious findings. Limited images of the upper abdomen. OTHER: Negative. C T/CT chest wo con IMPRESSION: Stable patchy and li near opacities most significant in the right lower lobe Electronically authe nticated by: NO BURLESON Date: 02/09/2024 12:54 Dictated By: No Burleson M.D. Signed By: 02/09/24 1257 DD/ 1254 TD/TT: Burrito Maker: CT Chest w/o contrast Reviewed date:02/09/2024 01:11:36 PM Interpretation: Performing Lab: Notes/Report: Reason For Referral No Information Medications Medication SIG (Take, Route, Frequency, Duration) Notes Start Date End Date Status Lac-Hydrin Five 5 % 1 application Buffing Wheel Operator ally Twice a day 09/04/2023 Active Lisinopril 5 MG TAKE 1 TABLET BY ABIGAIL TH EVERY DAY Oral for 90 Days Active Breztri Aerosphere 160-9-4.8 MCG/ACT 2 puffs Inhalation BID for 90 days Rinse after use; Dispense #3 inhalers Active metFORMIN HCl 1000 MG Oral for 90 Days Active glipiZIDE 10 MG Oral for 90 Days Active Ipratropium [place] 0.03 % Nasal for 90 Days Active Victoza 18 MG/3ML as directed Subcutaneous 025 Active Klor-Con M20 20 MEQ Oral for 90 Days Active Ipratropium-Albuterol 0.5-2.5 (3) MG/3ML 3mL Inhalation QID for 90 days Active Montelukast Sodium 10 MG Oral for 90 Days Active Ventolin HFA 108 (90 Base) MCG/ACT 2 puffs as needed for SOB Inhalation Q4H for 90 days Active Atorvastatin Calcium 20 MG TAKE 1 TABLET BY MOUTH EVERY DAY Oral for 90 Days Active Mucinex 600 MG 1 tablet as needed Orally every 12 hrs Active Omeprazole 40 MG Oral for 90 Days Active Fluticasone Propionate 50 MCG/ACT Nasal for 90 Days Active predniSONE 20 MG 3 tabs x 3 days, 2 t abs x 3 days, 1 tab x 3 days Orally Once a day for 9 03/31/2024 Not-Taki ng Immunizations Vaccine Route Administration Date Status [facility] [employer] Sy[facility] Pre -Filled 30 mcg/0.3 mL Unknown 11/16/2022 Administered Flu, Flucelvax (79842) 2 yrs +, single-dose syringe (8297-5832) Unknown 11/16/2022 Administered Social History Tobacco Use: Social History Observation Description Date Details (start date - stop date) Current Smoker NA - NA Tobacco Control (Standard) Question Answer Notes Tobacco use: Current smoker How often do you smoke cigarettes? Every day How many cigarettes a day do you smoke? 21-30 Additional Findings: Tobacco user Heavy cigarett e smoker (20-39 cigs/day) Problems Problem Type SNOMED Code ICD Code Onset Dates Problem Status W/U Status Risk Notes Problem 575054067 Chronic obstructive pulmonary disease, unspecified (J44.9) Active confirmed Problem 1875921807985 Type 2 diabetes mellitus with diabetic polyneuropathy (E11.42) Active confirmed Problem Foot ulcer due to type 2 diabetes mellitus (9009835424157) Type 2 diabetes mellitus with foot ulcer (E11.621) Active confirmed Problem Chronic ulcer of foot (663130882) 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) Active confirmed Problem Long-term current use of 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 (662528819) 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 (Z79.51) Active confirmed Problem Morbid obesity (095150829) Morbid obesity (E66.01) Active confirmed Problem COPD - Chronic obstructive pulmonary disease (32837059) COPD (chronic obstructive pulmonary disease) (J44.9) Active confirmed Problem Obstructive sleep apnea syndrome (04864592) MICHA (obstructive sleep apnea) (G47.33) Active confirmed Problem Diabetes mellitus type 2 (disorder) (10981587) DM2 (diabetes mellitus, type 2) (E11.9) Active confirmed Problem 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) Cigarette nicotine dependence with nicotine-induced disorder (F17.219) Active confirmed Problem Lung field abnormal (867764586) Right lower lobe lung mass (R91.8) Active confirmed Problem 328094453 Body mass index [BMI] 50.0-59.9, adult (Z68.43) Active confirmed Vital Signs Heart Rate 71 /min 08/11/2024 RA Activity/Res ting Temperature 96.8 degrees Fahrenheit 08/11/2024 RA A ctivity/Resting Respiratory Rate 20 /min 08/11/2024 RA Activity /Resting Blood pressure diastolic 76 mm Hg 08/11/2024 RA Activity/Resting Oximetry 93 % 08/11/2024 RA Activity/Res ting Height 71 in 08/11/2024 RA Activity/Res ting Blood pressure systolic 123 mm Hg 08/11/2024 RA A ctivity/Resting Weight 365.2 lbs 08/11/2024 RA Activity/Res ting BMI 50.93 kg/m2 08/11/2024 RA Activity/Res ting Encounters Encounter Location Date Provider Diagnosis Pulmonary Medicine [address] [address] 02/10/2024 Jac Matthew COPD (chronic obstructive pulmonary disease) J44.9 ; Right lower lobe lung mass R91.8 ; Cigarette nicotine dependence with nicotine-induced disorder F17.219 ; MICHA (obstructive sleep apnea) G47.33 ; DM2 (diabetes mellitus, type 2) E11.9 ; Morbid obesity E66.01 ; 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 Z79.51 and Body mass index [BMI] 50.0-59.9, adult Z68.43 [facility] (PODIATRY) [address] [place] [address] [place] [address] 12/01/2023 Anny Valadez Type 2 diabetes mellitus with diabetic polyneuropathy E11.42 ; DM2 (diabetes mellitus, type 2) E11.9 and Corns and callosities L84 [facility] (PODIATRY) [address] [place] [address] [place] [address] 02/11/2024 Anny Valadez DM2 (diabetes mellitus, type 2) E11.9 [facility] [address] [place] [address] 08/11/2024 [facility] COPD (chronic obstructive pulmonary disease) J44.9 ; Right lower lobe lung mass R91.8 ; Cigarette nicotine dependence with nicotine-induced disorder F17.219 ; MICHA (obstructive sleep apnea) G47.33 ; DM2 (diabetes mellitus, type 2) E11.9 ; Morbid obesity E66.01 ; senior living (current) use of 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s Z79.51 and Body mass index [BMI] 50.0-59.9, adult Z68.43 [facility] [address] [place] [address] 03/31/2024 [facility] COPD (chronic obstructive pulmonary disease) J44.9 ; Cigarette nicotine dependence with nicotine-induced disorder F17.219 ; Morbid obesity E66.01 and Body mass index [BMI] 50.0-59.9, adult Z68.43 [facility] [address] [place] [address] 03/25/2024 [facility] [place] [address] [place] [address] 04/12/2024 [facility] Pulmonary [facility] [address] [place] [address] 09/06/2024 [facility] Pulmonary [facility] [address] [place] [address] 09/13/2024 [facility] Assessments Encounter Date Diagnosis (ICD Code) Assessment Notes Treatment Notes Treatment Clinical Notes Section Notes 02/10/2024 COPD (chronic obstructive pulmonary disease) (ICD-10 - J44.9) Patient is using Breztri as prescribed. He continues to complain of shortness of breath, cough, wheezing. DuoNeb use is down to 4-5 times a day from 10 today. This still is more than I would like to see him use DuoNeb, especially given his age. Keyon discussion that he should expect his breathing to continue to be poor or even worsen as long as he smokes. Options are limited at this time; he may end up requiring daily prednisone if he does not stop smoking. 12/01/2023 Type 2 diabetes mellitus with diabetic polyneuropathy (ICD-10 - E11.42) 12/01/2023 DM2 (diabetes mellitus, type 2) (ICD-10 - E11.9) 02/11/2024 DM2 (diabetes mellitus, type 2) (ICD-10 - E11.9) 08/11/2024 COPD (chronic obstructive pulmonary disease) (ICD-10 [...] hours later, he can then use DuoNeb. Iqoz-tb-vqxy encounter performed with the patient to document continued need for a nebulizer with nebulized medications. -Current nebulized medications: DuoNeb -Symptom control: Better with use -Reported side or adverse effects: None -Recommendations: Continue DuoNeb. Renew/reorder/refi ll nebulizer and supplies. 03/31/2024 COPD (chronic obstructive pulmonary disease) (ICD-10 - J44.9) Vqot-dr-tool encounter performed with the patient to document continued need for a nebulizer with nebulized medications. -Current nebulized medications: DuoNeb QID -Symptom control: Improved with DuoNeb on top of Breztri -Reported side or adverse effects: Denies -Recommendations: Patient remains symptomatic despite triple inhaled therapy with Breztri. He has improved compliance with Breztri and has been able to reduce his DuoNeb use down to QID dosing. He states he is able to function well on this regimen. Counseled patient that with his continued smoking that he should expect to see a decline in his pulmonary function - I am very concerned about his health with his relatively young age of 53. Discussed prednisone. I expressed my concerns that if his breathing continues to deteriorate, he may become prednisone-depende nt. Prednisone helps him breathe better, but he is already morbidly obese, and chronic prednisone therapy will have diffuse systemic adverse effects for him. I voiced that I will send in an Rx for prednisone taper to keep on hand - I stated that is reasonable. I requested that he contact us if he requires it so we may keep track of his uses for documentation. He voiced agreement. Ordering new nebulizer with supplies. Refilled DuoNeb - he needs 120 nebs per 30 days (360mL) or 360 per 90 day (1080mL) - Patient believes he is getting short changed on his supply from the pharmacy. I sent in a prescription for DuoNeb requesting he receives the 120ct/30 days. He will return for his previously scheduled F/U appointment on 08/11/2024 to review his other issues I am monitoring. 03/31/2024 Cigarette nicotine dependence with nicotine-induced disorder (ICD-10 - F17.219) Discussed cessation yet again today. Continues to smoke 1ppd. He was counseled on the importance of smoking cessation. 03/31/2024 Morbid obesity (ICD-10 - E66.01) Patient is morbidly obese. It is inducing a restrictive pulmonary physiology. Weight loss indicated: Decrease calories, increase activity. 08/11/2024 Right lower lobe lung mass (ICD-10 [...] 01/2025. Personally handed patient order for test. 12/01/2023 Corns and callosities (ICD-10 - L84) 02/10/2024 Right lower lobe lung mass (ICD-10 - R91.8) History Chest CT 02/06/2024: No change in patchy/linear opacity PET 08/11/2023: No abnormal FDG uptake anywhere LDCT 07/28/2023: 7 x 7.4 x 1.9cm RLL peripheral vs. pleural-based mass RLL abnormality remains unchanged after 6 months. PET negative. This likely represents old scar tissue. However, he remains high risk given ongoing smoking, so it will need to be followed. Repeating chest CT in 1 year to complete 18-24 month monitoring. If it remains stable at that time, then will return to annual LDCT screening. Patient voiced understanding. 02/10/2024 Cigarette nicotine dependence with nicotine-induced disorder (ICD-10 - F17.219) Discussed cessation again today. He remains at 1 pack a day. He has not made any attempts to stop. He states he is going to discuss with his PCP options. I discussed options with him personally including Chantix, Wellbutrin, acupuncture, hypnosis, nicotine replacement therapy, and cold turkey. He did not commit to any of the suggestions today. 08/11/2024 Cigarette nicotine dependence with nicotine-induced disorder (ICD-10 - F17.219) Discussed cessation yet again. Continues to smoke 1ppd and voiced no desire to quit at this time after voicing understanding of the risks of ongoing smoking. 03/31/2024 Body mass index [BMI] 50.0-59.9, adult (ICD-10 - Z68.43) 08/11/2024 MICHA (obstructive sleep apnea) (ICD-10 - G47.33) Otri-ib-ualy encounter performed with the patient to document continued need for PAP therapy. -Compliance was reviewed from 07/12/2024 - 08/10/2024 -Total days used: 30/ (100%) -Total of all days >4 hours of use: 30/30 (100%) -Current model, mode, & pressure: AirCurve 10 VAuto [id number] -Residual AHI: 0.2 -Air leak (median): 1.6L/min -Mask/harness fitting: No complaints -Sleep quality: Better with PAP use -Daytime hypersomnolence: Decreased with PAP use -Recommendations: Superb compliance with voiced benefit and no concerns expressed today. Continue CPAP @ current settings @ HS/naps. -Note: This xjwh-rk-uujr visit comes with my authorization that the patient's DME may request to renew, reorder, and/or replace tubing, supplies, mask, and/or PAP device (if applicable). 02/10/2024 MICHA (obstructive sleep apnea) (ICD-10 - G47.33) Lxvj-vz-jbkb encounter performed with the patient to document continued need for PAP therapy. -Compliance was reviewed from 01/10/2024 - 02/08/2024 -Total days used: 30 (100%) -Total of all days >4 hours of use: 30 (100%) -Current model, mode, & pressure: AirCurve 10 VAuto [id number] -Residual AHI: 0.2 -Air leak (95th percentile): 49.8L/min -Mask/harness fitting: No complaints -Sleep quality: Sleeps well with limited nocturnal awakenings -Daytime hypersomnolence: Feels well-rested in the morning -Recommendations: Maintain superb compliance without any significant issues. He loves his machine and cannot sleep without it. MICHA has resolved with use. Continue CPAP @ current settings @ HS/naps. -Note: This ebaw-mt-bogp visit comes with my authorization that the patient's DME may request to renew, reorder, and/or replace tubing, supplies, mask, and/or PAP device (if applicable). 02/10/2024 DM2 (diabetes mellitus, type 2) (ICD-10 - E11.9) Steroids prescribed for this patient's underlying pulmonary disease can adversely affect blood glucose levels, inducing hyperglycemia and worsening underlying diabetes. The patient is encouraged to follow up with the primary care provider to create a plan to manage diabetes in this situation. 08/11/2024 DM2 (diabetes mellitus, type 2) (ICD-10 - E11.9) Steroids prescribed for this patient's underlying pulmonary disease can adversely affect blood glucose levels, inducing hyperglycemia and worsening underlying diabetes. The patient is encouraged to follow up with the primary care provider to create a plan to manage diabetes in this situation. 02/10/2024 Morbid obesity (ICD-10 - E66.01) Patient is morbidly obese. It is inducing a restrictive pulmonary physiology. Weight loss indicated: Decrease calories, increase activity. 08/11/2024 Morbid obesity (ICD-10 - E66.01) Patient is morbidly obese. It is inducing a restrictive pulmonary physiology. Weight loss indicated: Decrease calories, increase activity. 08/11/2024 senior living (current) use of 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s (ICD-10 - Z79.51) Patient was counseled to rinse & gargle with water after inhaled corticosteroid use. 02/10/2024 senior living (current) use of 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s (ICD-10 - Z79.51) Patient was counseled to rinse & gargle with water after inhaled corticosteroid use. 02/10/2024 Body mass index [BMI] 50.0-59.9, adult (ICD-10 - Z68.43) 08/11/2024 Body mass index [BMI] 50.0-59.9, adult (ICD-10 - Z68.43) 03/31/[address] 02/06/2024: No change in patchy/linear opacity PET 08/11/2023: No abnormal FDG uptake anywhere LDCT 07/28/2023: 7 x 7.4 x 1.9cm RLL peripheral vs. pleural-based mass RLL abnormality remains unchanged after 6 months. PET negative. This likely represents old scar tissue. However, he remains high risk given ongoing smoking, so it will need to be followed. Repeating chest CT in 1 year to complete 18-24 month monitoring. If it remains stable at that time, then will return to annual LDCT screening. Patient voiced understanding. Mcsg-kk-sfao encounter performed with the patient to document continued need for PAP therapy. -Compliance was reviewed from 01/10/2024 - 02/08/2024 -Total days used: 30/ (100%) -Total of all days >4 hours of use: 30/30 (100%) -Current model, mode, & pressure: AirCurve 10 VAuto [id number] -Residual AHI: 0.2 -Air leak (95th percentile): 49.8L/min -Mask/harness fitting: No complaints -Sleep quality: Sleeps well with limited nocturnal awakenings -Daytime hypersomnolence: Feels well-rested in the morning -Recommendations: Maintain superb compliance without any significant issues. He loves his machine and cannot sleep without it. MICHA has resolved with use. Continue CPAP @ current settings @ HS/naps. -Note: This qlfk-il-kfyt visit comes with my authorization that the patient's DME may request to renew, reorder, and/or replace tubing, supplies, mask, and/or PAP device (if applicable). Steroids prescribed for this patient's underlying pulmonary disease can adversely affect blood glucose levels, inducing hyperglycemia and worsening underlying diabetes. The patient is encouraged to follow up with the primary care provider to create a plan to manage diabetes in this situation. Patient was counseled to rinse & gargle with water after inhaled corticosteroid use. Plan Of Treatment No Information Insurance Providers Payer Name Payer Address Payer Phone Subscriber Number Group Number Insured Name Patient Relationship to Insured Coverage Start Date Coverage End Date [place] [address] [place] [address] [id number] Franko Guerin Self - patient is the insured 9 [place] 2ND INS [address] [facility] [address] [place], [place] [id number] Franko Guerin Self - patient is the insured Medical (General) History Medical History History ICD Code COPD (chronic obstructive pulmonary dise ase) J44.9 Cigarette nicotine dependence with nicot ine-induced disorder F17.219 senior living (current) use of inhaled stero ids Z79.51 MICHA (obstructive sleep apnea) G47.33 Gastroesophageal reflux disease with eso phagitis without hemorrhage K21.00 DM2 (diabetes mellitus, type 2) E11.9 HTN (hypertension) I10 Allergic rhinitis J30.9 Morbid obesity E66.01 Right lower lobe lung mass R91.8 venous insufficiency
--- OUTSIDE RECORDS SUMMARY | 2024-09-14 09:24 | XMS_ITS | Clinical Summary ---
Author Organization [facility] Address [address] [place] [address] Care Team Providers Care Hood Maker Name Role Phone Pato Denson MD Primary Care Provider [phone] Antoinette Jeong SCREEN PRINTER HELPER Unavailable [phone] Allergies No known active allergies Medications metFORMIN [...] (#1) 2024 0, 12/04/2018, 11/14/2016 Insurance [place] MED[place]ARE PART A & B Member Subscriber Plan / Payer (Ef fective 2018-Present) Name:Ector Rutledge Member ID:[id number] Relation to Subscriber:Self Name:Ector Rutledge Subscriber ID:[id number] Payer ID:Not on file Group ID:Not on file Type:Not on file Address: [facility] [address] PART A CLAIMS [address] [address] [place] [address] Advance Directives For more information, please contact: [phone] * Full Code (Latest Code Status on File) Date Activated Date Inactivated Comments 10/10/2019 4:19 AM 10/10/2019 4:28 PM Care Teams Hood Maker Relationship Specialty Start Date End Date Pato Denson MD PCP - General Internal Medicine 06/17/14 Antoinette Jeong, SCREEN PRINTER HELPER [address] [place] [address] Nurse Practitioner Pulmonology 10/21/19
== END 2024-09-14 09:22 | disposition home or self-care (01) ==
LOC: WC 09:21
PROVIDERS: PCP Nurse Practitioner Family; Visit Provider Physician Assistant
DX: S81.812A Laceration without foreign body, left lower leg, initial encounter (principal)
CPT/HCPCS: A6213; G0463

== ENCOUNTER 2024-09-29 08:52 | Outpatient (OUT) | payer MEDICARE, MEDICAID, SELFPAY ==
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
--- OUTSIDE RECORDS SUMMARY | 2024-09-06 05:03 | XMS_ITS ---
Author Organization [facility] [place] Address [address] [place] [address] Care Team Providers Care Curing Finisher Name Role Phone Jazz Hyde CNP Primary Care Provider U karissa FriasEbenezer [phone] REASON FOR VISIT PAP Machine Encounters Encounter Location Date Provider Diagnosis Pulmonary Medicine [place] [address] [place] [address] 09/06/2024 Ebenezer Frias Plan Of Treatment No Information Progress Notes * Ernie GUERIN JrDOB:[birth year] (53 yo M)Acc No.[id number]:09/06/2024 Patient: Nicholas Ernie DUEÑAS Jr :1970 A ge:53 Y S ex:Male Address:[address] [place] [address], [address], [place], [address] * true * Date: Generated for Evelyni april/Faajg/eTransmitting on: 0 09/29/2024 08:53 AM EDT
--- OUTSIDE RECORDS SUMMARY | 2024-09-13 07:30 | XMS_ITS ---
Author Organization [facility] [place] Address [address] [place] [address] Care Team Providers Care Pigment Supplier Name Role Phone Jazz Hyde CNP Primary Care Provider U karissa AltagraciaEbenezer [phone] REASON FOR VISIT Sleep Study/Machine Encounters Encounter Location Date Provider Diagnosis Pulmonary Medicine [place] [address] [place] [address] 09/13/2024 Ebenezer Frias Plan Of Treatment No Information Progress Notes * Ernie GUERIN JrDOB:[birth year] (53 yo M)Acc No.[id number]:09/13/2024 Patient: Nicholas Ernie DUEÑAS Jr :1970 A ge:53 Y S ex:Male Address:[address] [place] [address], [address], [place], [address] * true * Date: Generated for Evelyni april/Faajg/eTransmitting on: 0 09/29/2024 08:54 AM EDT
--- OUTSIDE RECORDS SUMMARY | 2024-09-29 08:54 | XMS_ITS | Clinical Summary ---
Author Organization [facility] Address [address] [place] [address] Care Team Providers Care Help Desk Analyst Name Role Phone Pato Denson MD Primary Care Provider [phone] Antoinette Jeong MUSEUM DOCENT Unavailable [phone] Allergies No known active allergies Medications metFORMIN [...] Payer (Ef fective 2018-Present) Name:Ector Rutledge Member ID:[id number] Relation to Subscriber:Self Name:Ector Rutledge Subscriber ID:[id number] Payer ID:Not on file Group ID:Not on file Type:Not on file Address: [facility] [address] [place] [address] [place] [address] Advance Directives For more information, please contact: [phone] * Full Code (Latest Code Status on File) Date Activated Date Inactivated Comments 10/10/2019 4:19 AM 10/10/2019 4:28 PM Care Teams Help Desk Analyst Relationship Specialty Start Date End Date Pato Denson MD PCP - General Internal Medicine 06/17/14 Antoinette Jeong, MUSEUM DOCENT [address] [place] [address] Nurse Practitioner Pulmonology 10/21/19
--- OUTSIDE RECORDS SUMMARY | 2024-09-29 08:54 | XMS_ITS | Clinical Summary ---
Author Organization [facility] Address [address] [place] [address] Care Team Providers Care Power Plant Technician Name Role Phone Unavailable Primary Care Provider Unavailabl e Social History Tobacco Use Types Packs/Day Years Used Date Smoking Tobacco: Never Assessed Sex and Gender Information Value Date Recorded Sex Assigned at Not on file Legal Sex Male 4:04 PM EDT Gender Identity Not on file Sexual Orientation Not on file Plan of Treatment Not on file Insurance [address] [place] [address] MED[place]ARE [place]
--- OUTSIDE RECORDS SUMMARY | 2024-09-29 08:54 | XMS_ITS | Encounter Summary ---
Author Organization [facility] Address [address] [place] [address] Care Team Providers Care Strap Sewer Name Role Phone Pato Denson MD Primary Care Provider [phone] Angelo Wyatt MD Unavailable [phone] Antoinette Jeong TOBACCO ROLLER Unavailable [phone] Encounter Details Date Type Department Care Team (Late st Contact Info) Description 10/27/2015 Transcribe Orders [facility] [address] [place] [address] Elizabeth Mohan CMA Hemorrhoids, unspecified [...] documented as of this encounter Care Teams Strap Sewer Relationship Specialty Start Date End Date Pato Denson MD PCP - General Internal Medicine 06/17/14 Angelo Wyatt MD [address] [place] [address] PCP - CMS Attributed Provider 06/08/19 11/28/19 Antoinette Jeong, TOBACCO ROLLER [address] [place] [address] Nurse Practitioner Pulmonology 10/21/19 documented as of this encounter
--- OUTSIDE RECORDS SUMMARY | 2024-09-29 08:54 | XMS_ITS | Patient Health Record ---
Author Organization [facility] [place] Address [address] [place] [address] Care Team Providers Care Dump Truck Operator Name Role Phone Jazz Hyde CNP Primary Care Provider Funmi wagnerangie RoryAnny Unavailable [phone] Jac Matthew Unavailable [phone] Allergies No Known Allergies Results Component Value Reference Range Notes CT chest wo con Reviewed date:02/11/2024 07:41:06 AM Interpretation: Performing Lab: Notes/Report: Source Facility: [place] [address] CT Scan Report Signed Patient: FRANKO GUERIN MR#: [id number] : 1970 Acct:[id number] Age/Sex: 53 / M ADM Date: 02/06/24 Loc: CT Attending Dr: Jac Matthew D.O. Ordering Physician: Jac Matthew D.O. Date of Service: 02/06/24 Procedure(s): CT chest wo con Accession Number(s): [id number] cc: Franchesca Don NP [place] [id number] Patient Name: FRANKO GUERIN MRN: [id number] date: 1970 Sex: M Assigned Patient Location: CT Current Patient Location: Accession/Order Number: [id number] Exam Date: 02/06/2024 08:01 Report Date: 02/09/2024 [...] Signed By: 02/09/24 1257 DD/ 1254 TD/TT: Retail Training Manager: [place] [address] CT Scan Report Signed Patient: NAIF GUERIN A MR#: [id number] : 1970 Acct:[id number] Age/Sex: 53 / M ADM Date: 02/06/24 Loc: CT Attending Dr: Jac Matthew D.O. Ordering Physician: Jac Matthew D.O. Date of Service: 02/06/24 Procedure(s): CT chest wo con Accession Number(s): [id number] cc: Franchesca Don NP [address] [address] Patient Name: FRANKO GUERIN MRN: [id number] date: 1970 Sex: M Assigned Patient Location: CT Current Patient Location: Accession/Order Wilebr er: [id number] Exam Date: 08:01 Report Date: 02/09/2024 12:54 [...] Signed By: 02/09/24 1257 DD/ 1254 TD/TT: Retail Training Manager: CT Chest w/o contrast Reviewed date:02/09/2024 01:11:36 PM Interpretation: Performing Lab: Notes/Report: Reason For Referral No Information Medications Medication SIG (Take, Route, Frequency, Duration) Notes Start Date End Date Status Lac-Hydrin Five 5 % 1 application Marketing Co Op ally Twice a day 09/04/2023 Active Lisinopril 5 MG TAKE 1 TABLET BY ABIGAIL TH EVERY DAY Oral for 90 Days Active Breztri Aerosphere 160-9-4.8 MCG/ACT 2 puffs Inhalation BID for 90 days Rinse after use; Dispense #3 inhalers Active metFORMIN HCl 1000 MG Oral for 90 Days Active glipiZIDE 10 MG Oral for 90 Days Active Ipratropium [place] 0.03 % Nasal for 90 Days Active [...] Vaccine Route Administration Date Status [facility] Digital Syringe Pre -Filled 30 mcg/0.3 mL Unknown 11/16/2022 Administered Flu, Flucelvax (74937) 2 yrs +, single-dose syringe (8886-5223) Unknown 11/16/2022 Administered Social History Tobacco Use: [...] Problem Status W/U Status Risk Notes Problem 707393527 Chronic obstructive pulmonary disease, unspecified (J44.9) Active confirmed Problem 0925991532933 Type 2 diabetes mellitus with diabetic polyneuropathy (E11.42) Active confirmed Problem Foot ulcer due to type 2 diabetes mellitus (8602597141375) Type 2 diabetes mellitus with foot ulcer (E11.621) Active confirmed Problem Chronic ulcer of foot (922681465) 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) Active confirmed Problem Long-term current use of 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 (413155741) 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.51) Active 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 Problem Morbid obesity (176431876) Morbid obesity (E66.01) Active confirmed Problem COPD - Chronic obstructive pulmonary disease (98189754) COPD (chronic obstructive pulmonary disease) (J44.9) Active confirmed Problem Obstructive sleep apnea syndrome (57261624) MICHA (obstructive sleep apnea) (G47.33) Active confirmed Problem Diabetes mellitus type 2 (disorder) (18300770) DM2 (diabetes mellitus, type 2) (E11.9) Active confirmed Problem 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) Cigarette nicotine dependence with nicotine-induced disorder (F17.219) Active confirmed Problem Lung field abnormal (918080411) Right lower lobe lung mass (R91.8) Active confirmed Problem 876395301 Body mass index [BMI] 50.0-59.9, adult (Z68.43) [...] Encounter Location Date Provider Diagnosis [facility] [address] [place] [address] 03/31/2024 Jac Matthew COPD (chronic obstructive pulmonary disease) J44.9 ; Cigarette nicotine dependence with nicotine-induced disorder F17.219 ; Morbid obesity E66.01 and Body mass index [BMI] 50.0-59.9, adult Z68.43 [facility] [address] [place] [address] 08/11/2024 Jac Matthew COPD (chronic obstructive pulmonary disease) J44.9 ; Right lower lobe lung mass R91.8 ; Cigarette nicotine dependence with nicotine-induced disorder F17.219 ; MICHA (obstructive sleep apnea) G47.33 ; DM2 (diabetes mellitus, type 2) E11.9 ; Morbid obesity E66.01 ; 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 Z79.51 and Body mass index [BMI] 50.0-59.9, adult Z68.43 [facility] [address] [place] [address] 02/10/2024 [facility] COPD (chronic obstructive pulmonary disease) J44.9 ; Right lower lobe lung mass R91.8 ; Cigarette nicotine dependence with nicotine-induced disorder F17.219 ; MICHA (obstructive sleep apnea) G47.33 ; DM2 (diabetes mellitus, type 2) E11.9 ; Morbid obesity E66.01 ; group home (current) use of 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s Z79.51 and Body mass index [BMI] 50.0-59.9, adult Z68.43 [facility] (PODIAT[facility]) [address] [place] [address] [place] [address] 12/01/2023 Anny Valadez Type 2 diabetes mellitus with diabetic polyneuropathy E11.42 ; DM2 (diabetes mellitus, type 2) E11.9 and Corns and callosities L84 [facility] (POD[facility]) [address] [place] [address] [place] [address] 02/11/2024 Anny Valadez DM2 (diabetes mellitus, type 2) E11.9 [facility] [address] [place] [address] 03/25/2024 [facility] [address] [place] [address] 04/12/2024 [facility] [address] [place] [address] 09/06/2024 [facility] [address] [place] [address] 09/13/2024 [facility] Assessments Encounter Date Diagnosis (ICD Code) Assessment [...] prednisone if he does not stop smoking. 02/11/2024 DM2 (diabetes mellitus, type 2) (ICD-10 [...] hours later, he can then use DuoNeb. Efep-sh-nrdf encounter performed with the patient to document continued need for a nebulizer with nebulized medications. -Current nebulized medications: DuoNeb -Symptom control: Better with use -Reported side or adverse effects: None -Recommendations: Continue DuoNeb. Renew/reorder/refi ll nebulizer and supplies. 03/31/2024 COPD (chronic obstructive pulmonary disease) (ICD-10 - J44.9) Lufa-ak-inid encounter performed with the patient to document [...] counseled on the importance of smoking cessation. 12/01/2023 Type 2 diabetes mellitus with diabetic polyneuropathy (ICD-10 - E11.42) 12/01/2023 DM2 (diabetes mellitus, type 2) (ICD-10 - E11.9) 12/01/2023 Corns and callosities (ICD-10 - L84) 03/31/2024 Morbid obesity (ICD-10 - E66.01) Patient [...] 01/2025. Personally handed patient order for test. 02/10/2024 Right lower lobe lung mass (ICD-10 [...] MICHA (obstructive sleep apnea) (ICD-10 - G47.33) Odvk-fo-entl encounter performed with the patient to document continued need for PAP therapy. -Compliance was reviewed from 07/12/2024 - 08/10/2024 -Total days used: 30/ (100%) -Total of all days >4 hours of use: 30/30 (100%) -Current model, mode, & pressure: AirCurve 10 VAuto [id number] -Residual AHI: 0.2 -Air leak (median): 1.6L/min -Mask/harness fitting: No complaints -Sleep quality: Better with PAP use -Daytime hypersomnolence: Decreased with PAP use -Recommendations: Superb compliance with voiced benefit and no concerns expressed today. Continue CPAP @ current settings @ HS/naps. -Note: This rdmr-ke-cmpl visit comes with my authorization that the patient's DME may request to renew, reorder, and/or replace tubing, supplies, mask, and/or PAP device (if applicable). 02/10/2024 MICHA (obstructive sleep apnea) (ICD-10 - G47.33) Usvg-ra-nsai encounter performed with the patient to document continued need for PAP therapy. -Compliance was reviewed from 01/10/2024 - 02/08/2024 -Total days used: 30 (100%) -Total of all days >4 hours of use: 30 (100%) -Current model, mode, & pressure: AirCurve 10 VAuto [id number] -Residual AHI: 0.2 -Air leak (95th percentile): 49.8L/min -Mask/harness fitting: No complaints -Sleep quality: Sleeps well with limited nocturnal awakenings -Daytime hypersomnolence: Feels well-rested in the morning -Recommendations: Maintain superb compliance without any significant issues. He loves his machine and cannot sleep without it. MICHA has resolved with use. Continue CPAP @ current settings @ HS/naps. -Note: This nuxn-rj-jary visit comes with my authorization that the [...] Weight loss indicated: Decrease calories, increase activity. 02/10/2024 Morbid obesity (ICD-10 - E66.01) Patient is morbidly obese. It is inducing a restrictive pulmonary physiology. Weight loss indicated: Decrease calories, increase activity. 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 08/11/2024 Body mass index [BMI] 50.0-59.9, adult (ICD-10 - Z68.43) 02/10/2024 Body mass index [BMI] 50.0-59.9, adult [...] to annual LDCT screening. Patient voiced understanding. Hjdf-vc-vywi encounter performed with the patient to document continued need for PAP therapy. -Compliance was reviewed from 01/10/2024 - 02/08/2024 -Total days used: 30/ (100%) -Total of all days >4 hours of use: 30/30 (100%) -Current model, mode, & pressure: AirCurve 10 VAuto [id number] -Residual AHI: 0.2 -Air leak (95th percentile): 49.8L/min -Mask/harness fitting: No complaints -Sleep quality: Sleeps well with limited nocturnal awakenings -Daytime hypersomnolence: Feels well-rested in the morning -Recommendations: Maintain superb compliance without any significant issues. He loves his machine and cannot sleep without it. MICHA has resolved with use. Continue CPAP @ current settings @ HS/naps. -Note: This fwlm-nc-jsff visit comes with my authorization that the [...] End Date [place] [address] [place] [address] [id number] Franko Guerin Self - patient is the insured 9 MEDICAID [place] 2ND [place] [address] [facility] [address] [place], [place] [phone] [id number] Franko Guerin Self - patient is the insured Medical (General) History Medical History History ICD Code COPD (chronic obstructive pulmonary dise ase) J44.9 Cigarette nicotine dependence with nicot ine-induced disorder F17.219 group home (current) use of inhaled stero ids Z79.51 MICHA (obstructive sleep apnea) G47.33 Gastroesophageal reflux disease with eso phagitis without hemorrhage K21.00 DM2 (diabetes mellitus, type 2) E11.9 HTN (hypertension) I10 Allergic rhinitis J30.9 Morbid obesity E66.01 Right lower lobe lung mass R91.8 venous insufficiency
== END 2024-09-29 08:53 | disposition home or self-care (01) ==
LOC: WC 08:52
PROVIDERS: PCP Nurse Practitioner Family; Visit Provider Physician Assistant
DX: S81.812A Laceration without foreign body, left lower leg, initial encounter (principal)
CPT/HCPCS: G0463

== ENCOUNTER 2024-12-06 19:59 | Outpatient (OUT) | payer MEDICARE, MEDICAID, SELFPAY ==
--- OUTSIDE RECORDS SUMMARY | 2024-05-10 10:20 | XMS_ITS ---
Author Organization [facility] in [place] Address [address] [place] [address] Care Team Providers Care Reporting Analyst Name Role Phone Jazz Hyde CNP Primary Care Provider U Anny Ibrahim Unavailable [phone] REASON FOR VISIT Nail Care Encounters Encounter Location Date Provider Diagnosis [facility] (PODIATRY) [address] [place] [address] [place] [address] 05/10/2024 Anny Valadez Plan Of Treatment No Information Progress Notes * Ernie GUERIN JrDOB:[birth year] (54 yo M)Acc No.[id number]:05/10/2024 UNLOCKED PROGRESS NOTE Nurse Visit Patient: Nicholas DUEÑAS Ernie Ramirez Jr Provider: Sweta Valadez PA-C :1970 A ge:53 Y S ex:Male Date:05/10/2024 Address:[address] [place] [address], [address], [place], [id number] Pcp:Jazz Hyde CNP Subjective: * Chief Complaints: * 1 . Nail Care. * Medical History: Objective: * Vitals: Assessment: Plan: * Treatment: * * Electronic signature of Martha Valadez PA-C on 12/06/2024 at 08:02 PM EDT Sign off status: Pending Visit Status: C ANC (Cancelled) * Provider: Sweta Valadez PA-C Date: 0 05/10/2024 Generated for Helen chen/Dick/Ebonysmitting on: 1 08:02 PM EDT
--- OUTSIDE RECORDS SUMMARY | 2024-11-29 20:01 | XMS_ITS | CCD ---
Author Organization [facility] CliniSymt Care Team Providers Care Vegetable Inspector Name Role Phone Verma, Bernadine Unavailable PALMER, DREMA DAVONTE Unavailable Unavailab le PALMER, DREMA DAVONTE Unavailable Unavailab le VERMA, BERNADINE Unavailable Unavailable Verma, Bernadine Primary Care Provider [phone] VERMA, BERNADINE Primary Care Unavailable DEBBIE ERWIN Attending Unavailabl e Verma, Bernadine Primary Care Provider Angelo Rios Unavailable [phone] VERMA, BERNADINE Primary Care Unavailable MYAH VALLE Attending Unav ailable MYAH VALLE Admitting Unav ailable MYAH VALLE Referring Unav ailable VERMA, BERNADINE Primary Care Unavailable CECI GTZ Admitting Unavailable QUIN REYNA Attending Unavaila ble Verma, Bernadine Primary Care Provider Al Solomon Unavailable [phone] SELF, SELF Referring Unavailable DORA VILLAGOMEZ [...] VERMA, BERNADINE Primary Care Unavailable Bayron SALINAS, [facility] Primary Care Provider Al Solomon CNP G Unavailable Bayron SALINAS, [facility] Primary Care Provider [phone] Al Solomon CNP G Unavailable [phone] Kristina Solomon CNPy G Unavailable [phone] Bayron SALINAS, [facility] Primary [facility] [place] Provider [phone] Al Solomon CNP G Unavailable SELF, SELF Referring Unavailable DORA VILLAGOMEZ Attending Unavailable BAYRON BERNADINE Primary Care Unavailable DORA VILLAGOMEZ Referring Unavailable KIKI CHILDRESS Primary Care Physician Jj Stevens Primary Care Physician [phone] Jj Stevens Admitting Unavailable Link, Jj Jay Attending Unavailable Link, Jj Jay Admitting Unavailable Link, Jj Jay Attending Unavailable Franchesca Don Admitting Unavailable Franchesca Don Attending Unavailable Casey Morse Attending Unavailable Casey Morse Admitting Unavailable Bayron SALINAS, [facility] Primary [facility] [place] Provider [phone] Al Solomon CNP G Unavailable Jazz Hyde Attending Unavailable Jazz Hyde Admitting Unavailable Jazz Hyde APRN Attending Provider Jazz Hyde APRN Attending Provider [phone] Jazz Hyde APRN Primary Care Provider Jazz Hyde APRN Attending Provider [phone] Medications Current Medications Medication Drug Class(es) Dates [...] EVERY 12 HOURS 1 each 08/09/2016 Active [id number] 200 actuat albuterol 0.09 mg/actuat metered dose inhaler (20 sources) beta2-Adrenergic Agonist Start: 08-18-2023 End: 01-16-2024 take 1 puff(s) by inhalation every four hours as needed for wheezing Albuterol Sulfate (Ventolin Hfa) 90 mcg/actuation HFA aerosol inhaler Active 2 PUFF INHALATION Every 4 hours as needed for shortness of breath or wheezing 6.7 January 16, 2024 10:12am Complies with drug therapy Start: 06-04-2018 take 2 puff(s) by in [...] or wheezing 6.7 January 16, 2024 9:12am azithromycin 250 mg oral tablet (2 sources) Macrolide Antimicrobial Start: 11-24-2019 azithromycin (Zithromax) 250 MG tablet Take 2 pills on day 1, and then 1 pill a day for 4 days. . 6 tablet 0 11/24/2019 Active Blood-Glucose Meter (Accu-Chek Guide Glucose Meter) misc (4 sources) Start: 02-11-2024 Blood-Glucose Meter (Accu-Chek Guide Glucose Meter) misc Active 0 .Route 1 February 11, 2024 1:00am As directed Start: 02-11-2024 Blood-Glucose Meter (Accu-Chek Guide Glucose Meter) misc Active 0 .Route February 11, 2024 12:00am As directed Avokxboxik-Jwvmzxls-Odwtroay ol (8 sources) Corticosteroid, beta2-Adrenergic Agonist Start: 08-25-2023 Glwochosqd-Jimcvzcx-Otvnshqa ol (Breztri Aerosphere) 160-9-4.8 mcg/actuation HFA aerosol inhaler Active 2 INH INHALATION Twice daily 5.9 August 25, 2023 9:28am Complies with drug therapy Start: 08-18-2023 End: 08-25-2023 Dvkiekwcjv-Dowoqgxe-Opppvjxk ol (Breztri Aerosphere) 160-9-4.8 mcg/actuation HFA aerosol inhaler Discontinued 2 INH INHALATION Twice daily August 18, 2023 12:00am August 25, 2023 9:29am Rbrcegzsvj-Wsvplmeh-Qhozsvdq ol (Breztri Aerosphere) 160-9-4.8 mcg/actuation HFA aerosol inhaler (5 sources) Start: 08-25-2023 Xdbblufyhm-Bntmatnp-Wyvlrluy ol (Breztri Aerosphere) 160-9-4.8 mcg/actuation HFA aerosol inhaler Active 2 INH INHALATION Twice daily 5.9 August 25, 2023 8:28am Start: 08-25-2023 Budesonide-Gly copyr-Formoterol (Breztri Aerosphere) 160-9-4.8 mcg/actuation HFA aerosol inhaler Active 2 INH INHALATION Twice daily 5.9 August 25, 2023 9:28am cephalexin 500 mg oral capsule (1 source) Cephalosporin Antibacterial Start: 08-23-2024 take 1 capsule by mouth three times daily Cephalexin 500 mg capsule Active 500 MG PO Three times daily 30 August 23, 2024 12:00am Complies with drug therapy Fluticasone 500 McG-Salmeterol 50 McG/Dose Blistr Powdr For Inhalation (3 sources) Corticosteroid, beta2-Adrenergic Agonist fluticasone-salm eterol (ADVAIR DISKUS) 500-50 mcg/dose diskus inhaler Inhale 1 puff 2 (two) times a day. Active 60 actuat formoterol fumarate 0.005 mg/actuat / mometasone furoate 0.2 mg/actuat metered dose inhaler (17 sources) Corticosteroid, beta2-Adrenergic Agonist Start: 10-21-2019 take 2 puff(s) by inhalation twice daily mometasone-formo terol (Dulera) 200-5 mcg/actuation HFAA Inhale [...] mouth daily . 0 04/15/2014 10/10/2019 Discontinued 12 hr guaiFENesin 1200 mg extended release oral tablet (1 source) Start: 08-23-2024 take 1 tablet by mouth once daily at bedtime, then take 1 tablet by mouth every twelve hours Guaifenesin (Mucus Relief Er) 1,200 mg tablet extended release 12hr Active 1200 MG PO Daily at bedtime 90 August 23, 2024 12:00am Complies with drug therapy ipratropium bromide 0.021 mg/actuat metered dose nasal spray (20 sources) Anticholinergic Start: 03-30-2024 End: 06-28-2024 take 1 spray(s) nasal route twice daily Ipratropium [place] 21 mcg (0.03 %) spray,non-aerosol Active 2 SPRAY INTRANASAL Twice daily June 28, 2024 7:53am administer into each nostril Complies with drug therapy Start: 11-04-2023 End: 11-11-2023 take 1 mL by inhalation every six hours as needed for wheezing Ipratropium [place] 0.02 % solution Discontinued 3 ML INHALATION Every 6 hours as needed for shortness of breath or wheezing 150 November 04, 2023 11:35am November 11, 2023 4:41pm Start: 11-04-2023 End: 11-11-2023 take 1 mL by inhalation every six hours Ipratropium [place] Discontinued 3 ML INHALATION Every 6 hours 150 November 04, 2023 11:35am November 11, 2023 4:41pm Start: 08-18-2023 End: 08-25-2023 Ipratropium [place] 21 mcg ( 0.03 %) spray,non-aerosol Discontinued [...] Active isopropyl alcohol 0.7 ml/ml medicated pad (14 sources) Start: 02-12-2024 End: 03-30-2024 Alcohol Swabs (Bd Alcohol Swabs) pads, medicated Active 0 TOPICAL .BID March 30, 2024 9:54am pad topically BID; Complies with drug therapy Start: 12-19-2019 Alcohol Prep P ads PadM USE 1 PAD DAILY 0 12/19/2019 Active ammonium lactate 120 mg/ml topical cream (14 sources) Start: 03-30-2024 End: 08-17-2024 Ammonium Lactate 12 % cream Active 1 APPLIC TOPICAL Twice daily as needed for dry skin 385 August 17, 2024 10:40am Complies with drug therapy Start: 08-11-2019 ammonium lacta te (LAC-HYDRIN) 12 % lotion 3 ml liraglutide 6 mg/ml pen injector (20 sources) GLP-1 Receptor Agonist Start: 06-28-2024 Liraglutide (Victoza 2-Acosta) 0.6 mg/0.1 mL (18 mg/3 mL) pen injector Active 1.8 MG SUBCUT Daily June 28, 2024 8:40am Complies with drug therapy Start: 03-30-2024 End: 06-28-2024 Liraglutide (Victoza 2-Acosta) 0.6 mg/0.1 mL (18 mg/3 mL) pen injector Discontinued 1.2 MG SUBCUT Daily March 30, 2024 9:45am June 28, 2024 8:41am Start: 11-25-2023 End: 03-30-2024 Liraglutide (Victoza 2-Acosta) 0.6 mg/0.1 mL (18 mg/3 mL) pen injector Discontinued 0 SUBCUT .COMPLEX 6 December 26, 2023 9:20am January 08, 2024 2:32pm inject 0.6mg subcutaneously once daily Start: 03-22-2017 VICTOZA 2-ACOSTA 0.6 mg/0.1 mL (18 mg/3 mL) Pen Inject 1.2 mg under the skin daily . 0 03/22/2017 Active Start: 03-22-2017 VICTOZA 2-ACOSTA 0.6 mg/0.1 mL (18 mg/3 mL) Pen metFORMIN hydrochloride 1000 mg oral tablet (20 sources) Biguanide Start: 05-17-2024 take 1 tablet by mouth twice daily Metformin 1,000 mg tablet Active 0 .ROUTE .COMPLEX 180 May 17, 2024 7:56am TAKE 1 TABLET BY MOUTH TWICE A DAY Complies with drug therapy Start: 08-18-2023 End: 05-17-2024 take 1 tablet by mouth twice daily Metformin 1,000 mg tablet Discontinued 1000 MG PO Twice daily 90 January 16, 2024 10:14am May 17, 2024 [...] day(s), # 21 tab(s), Refills(s) 0, Pharmacy: [facility]/pharmacy #[id number], 178, cm, 08/03/21 10:30:00 EDT, Height/Length Dosing, 175, kg, 08/03/21 10:30:00 EDT, Weight Dosing Start Date: 08/03/21 Stop Date: 08/09/21 Status: Ordered Start: 10-09-2019 End: 10-09-2019 methylPREDNISolone sod suc(P F) (SOLU-medrol) Injection 125 mg penicillin v potassium 500 mg oral tablet [...] extended release oral tablet (20 sources) Start: 08-18-2023 End: 08-16-2024 Potassium Chloride (Klor-Con M20) 20 mEq tablet,ER particles/crystals Active 20 MEQ PO Daily August 16, 2024 4:34pm Complies with drug therapy Start: 04-15-2014 End: 10-10-2019 take 1 tablet by mouth once daily, then take 1 tablet by mouth potassium chloride SA (K-DUR,KLOR-CON) 20 MEQ tablet Take 20 mEq by mouth daily . 0 04/15/2014 10/10/2019 Discontinued TUDORZA PRESSAIR 400 mcg/actuation AePB [...] Anticholinergic, beta2-Adrenergic Agonist Start: 11-11-2023 End: 01-16-2024 Ipratropium-Albuter ol 0.5 mg-3 mg(2.5 mg base)/3 mL solution for nebulization Discontinued 3 ML INHALATION every 6 to 8 hours as needed for shortness of breath or wheezing 180 November 25, 2023 8:44am January 16, 2024 [...] for 30 day(s), 360 mL, Refill(s) 5, [facility]/pharmacy #[id number], 178, cm, 08/03/21 10:30:00 EDT, Height/Length [...] mg / clavulanate 125 mg oral tablet (3 sources) Penicillin-class Antibacterial Start: 04-28-2024 End: 06-28-2024 [...] End: 10-09-2019 aspirin chewable tablet 324 mg atorvastatin 20 mg oral tablet (20 sources) HMG-CoA Reductase Inhibitor Start: 08-18-2023 End: 06-28-2024 take 1 tablet by mouth once daily Atorvastatin 20 mg tablet Discontinued 20 MG PO Daily 90 January 16, 2024 10:12am June 28, 2024 8:42am Start: 03-24-2017 atorvastatin ( LIPITOR) 20 MG tablet betamethasone 0.5 mg/ml / clotrimazole 10 mg/ml [...] Active dicyclomine hydrochloride 20 mg oral tablet (7 sources) Anticholinergic Start: 08-18-2023 End: 11-25-2023 take 1 tablet by mouth three times daily Dicyclomine 20 mg tablet Discontinued 20 MG PO Three times daily 60 August 18, 2023 12:00am November 25, 2023 8:38am docusate sodium 50 mg / sennosides, senior [facility] 8.6 mg oral tablet (10 sources) Start: 08-16-2016 End: 10-10-2019 senna-docusate (SENNA-S) 8.6-50 mg Take by mouth. 0 08/16/2016 10/10/2019 Discontinued doxycycline monohydrate 100 mg oral tablet (4 sources) Tetracycline-class Drug Start: 02-10-2024 End: 03-30-2024 take 1 tablet by mouth twice daily Doxycycline Monohydrate 100 mg tablet Discontinued 100 MG PO Twice daily 20 February 10, 2024 1:00am March 30, 2024 9:46am 0.5 ml dulaglutide 1.5 mg/ml auto-injector (7 sources) GLP-1 Receptor Agonist Start: 08-18-2023 End: [...] daily . 16 g 12 06/04/2018 Active glipiZIDE 10 mg oral tablet (20 sources) Sulfonylurea Start: 08-18-2023 End: 06-28-2024 take 1 tablet by mouth twice daily Glipizide 10 mg tablet Discontinued 10 MG PO Twice daily February 10, 2024 9:08am June 28, 2024 8:42am take 1 tablet by alvaro twice daily before mealtime glipiZIDE (GLUCOTROL) 5 MG tablet Take 5 mg by mouth 2 (two) times a day before meals . 0 Active lisinopril 5 mg oral tablet (20 sources) Angiotensin Converting Enzyme Inhibitor Start: 08-18-2023 End: 06-28-2024 take 1 tablet by mouth once daily Lisinopril 5 mg tablet Discontinued 5 MG PO Daily January 16, 2024 10:14am June 28, 2024 8:42am take 1 tablet by mouth once dunia y lisinopriL (PRINIVIL,ZESTRIL) 2.5 MG tablet Take 2.5 mg by mouth daily . 0 Active montelukast 10 mg oral tablet (20 sources) Leukotriene Receptor Antagonist Start: 08-18-2023 End: 06-22-2024 take 1 tablet by mouth once daily Montelukast 10 mg tablet Discontinued 10 MG PO Daily January 16, 2024 10:15am June 22, 2024 7:55am Start: 11-27-2017 End: 06-04-2018 take 1 tablet by mouth once daily montelukast (SINGULAIR) 10 mg tablet Take 1 (one) tablet (10 mg total) by mouth nightly . 30 tablet 06/04/2018 Active take 1 tablet by mouth once nestor elukast (SINGULAIR) 10 mg tablet Take 10 mg by mouth nightly. Active omeprazole 40 mg delayed release oral capsule (20 sources) Proton Pump Inhibitor Start: 08-18-2023 End: 06-28-2024 take 1 capsule by mouth once daily Omeprazole 40 mg capsule,delayed release(DR/EC) Discontinued 40 MG PO Daily January 16, 2024 10:15am June 28, 2024 8:42am Start: 01-21-2018 take 1 capsule by mo [facility] once daily omeprazole (PRILOSEC) 40 MG capsule Take 40 mg by mouth daily . 0 01/21/2018 Active take 1 capsule by mo [facility] once daily omeprazole (PRILOSEC) 20 MG capsule Take 20 mg by mouth daily. Active Potassium Chloride (Klor-Con M20) 20 mEq [...] Start: 10-10-2019 take 4 tablets by mo [facility] once daily, then take 2 tablets by [...] 10 tablet 0 10/10/2019 10/10/2019 Discontinued Semaglutide (7 sources) Start: 08-18-2023 End: 08-18-2023 inject 1 [...] sodium chloride (PF) (NS) flush 5 mL tiZANidine 2 mg oral tablet (4 sources) Central alpha-2 Adrenergic Agonist Start: 02-10-2024 End: 08-23-2024 take 1 tablet by mouth every eight hours as needed Tizanidine 2 mg tablet Discontinued 2 MG PO Every 8 hours as needed for muscle spasticity 30 10 February 10, 2024 1:00am August 23, 2024 3:25pm triamcinolone acetonide 1 mg/ml topical cream (3 [...] disease] Onset: 11-25-2016 11-25-2016 Chronic Diabetes mellitus with complications (2 sources) Diabetic foot ulcer; Translations: [Other specified diabetes mellitus with foot ulcer] 06-29-2024 Chronic Diabetes mellitus without complication (16 sources) Type 2 diabetes mellitus; Translations: [Type 2 diabetes mellitus without complications] 08-18-2023 Chronic Disorders of lipid metabolism (13 sources) Hyperlipidemia; Translations: [Hyperlipidemia, unspecified] 08-18-2023 Chronic Disorders of teeth and jaw (6 sources) Toothache; Translations: [Dental abscess] 04-28-2024 Episodic Disorders of teeth and jaw (2 sources) Other specified disorders of teeth and supporting structures; Translations: [Other specified disorders of teeth and supporting structures] Onset: 06-15-2018 Esophageal disorders (4 sources) Gastroesophageal reflux disease; Translations: [Gastro-esophageal reflux disease without esophagitis] 01-16-2024 Chronic Essential hypertension (13 sources) Hypertensive disorder; Translations: [Essential (primary) hypertension] 08-18-2023 Chronic Gastritis and duodenitis (6 sources) Gastritis; Translations: [Gastritis, unspecified, without bleeding] 08-18-2023 Episodic Nonspecific chest pain (1 source) Chest pain; Translations: [Chest pain, unspecified type] Episodic Open wounds of extremities (7 sources) Unspecified open wound, right lower leg, initial encounter; Translations: [Injury of right leg] Onset: 02-10-2024 02-10-2024 Episodic Open wounds of extremities (2 sources) Injury of left leg; Translations: [Unspecified open wound, left lower leg, initial encounter] 08-23-2024 Episodic Other connective tissue disease (4 sources) Spasm; Translations: [Other muscle spasm] 02-10-2024 Episodic Other connective tissue disease (3 sources) Foot pain; Translations: [Pain in right foot] 12-26-2023 Episodic Other connective tissue disease (2 sources) Other muscle spasm; Translations: [Spasm of muscle] 02-10-2024 Episodic Other connective tissue disease (1 source) Pain in right foot; Translations: [Pain in right foot] 12-26-2023 Episodic Other diseases of veins and lymphatics (7 sources) Vascular insufficiency; Translations: [Venous insufficiency (chronic) (peripheral)] 08-18-2023 Episodic Other diseases of veins and lymphatics (5 sources) Peripheral venous insufficiency; Translations: [Venous insufficiency (chronic) (peripheral)] 03-30-2024 Episodic Other diseases of veins and lymphatics (5 sources) Venous insufficiency (chronic) (peripheral); Translations: [Venous (peripheral) insufficiency, unspecified] 03-30-2024 Episodic Other screening for suspected conditions (not mental disorders or infectious disease) (14 sources) Patient encounter status; Translations: [Encounter for screening for malignant neoplasm of prostate] 03-30-2024 Episodic Residual codes; unclassified (7 sources) Sleep apnea; Translations: [Sleep apnea, unspecified] 08-18-2023 Chronic Residual codes; unclassified (4 sources) Sleep apnea, unspecified; Translations: [Unspecified sleep apnea] 03-30-2024 Chronic Screening or history of mental health and substance abuse (16 sources) Tobacco user; Translations: [Tobacco abuse disorder] Onset: 11-25-2016 11-25-2016 Chronic Skin and subcutaneous tissue infections (8 sources) Cellulitis of lower limb; Translations: [Cellulitis of unspecified part of limb] 02-11-2024 Episodic Spondylosis; intervertebral disc disorders; other back problems (6 sources) Low back pain; Translations: [Low back pain] 02-10-2024 Episodic Substance-related disorders (19 sources) Cigarette smoker ; Translations: [Nicotine dependence, [...] Facility HbA1c HPLC (Bld) [Mass fract ion]on 06-28-2024 HbA1c (Bld) [Mass fraction] 6.7 % [facility] HbA1c HPLC (Bld) [Mass fract ion]on 03-30-2024 HbA1c (Bld) [Mass fraction] Hemoglobin A1c/Hemoglobin.tota l in Blood by HPLC High [facility] Aerobic Cultureon 02-10-2024 Aerobic Culture Right lower leg wound Result Tab Codes Light Normal Skin Breana 2 Days Right lower leg wound No Anaerobes Isolated 3 Days Right lower leg wound Gram Stain Result 1+ White Blood Cells No Bacteria Seen PERFORMED BY: [place] [address] PATHOLOGIST [employer] SUPERVIS[employer] GAIL KAUFMAN M.D. Normal [facility] Comment on above: Performed By: #### A ERIC, GS #### [facility] [address] [place] [address] Aerobic cultureOrdered By: Yazan Hyde on 02-10-2024 Bacteria identified Aer cx Nom (Unsp spec) Aerobic culture [facility] Bacteria identified Aer cx Nom (Unsp spec) Aerobic culture [facility] Anaerobic cultureOrdered By: Jazz Hyde on 02-10-2024 Bacteria identified Anaer cx Nom (Unsp spec) Anaerobic culture [facility] Bacteria identified Anaer cx Nom (Unsp spec) Anaerobic culture [facility] Gram Stainon 02-10-2024 Microscopic observation Gram stain Nom (Unsp spec) Right lower leg wound Gram Stain Result 1+ White Blood Cells No Bacteria Seen PERFORMED BY: [place] [address] PATHOLOGIST [employer] SUPERVISOR GAIL KAUFMAN M.D. Normal [facility] Comment on above: Performed By: #### A ERIC, GS #### [facility] [address] [id number] [facility] Gram stain microscopyOrdered By: Jazz Hyde on 02-10-2024 Microscopic observation Gram stain Nom (Unsp spec) Gram stain microscopy [facility] Microscopic observation Gram stain Nom (Unsp spec) Gram stain microscopy [facility] HbA1c HPLC (Bld) [Mass fract ion]on 11-25-2023 HbA1c (Bld) [Mass fraction] 8.4 % [facility] Physician Orderon 03-28-2023 Physician Order [id number] 85#1.00TIFF [facility] Consent for Treatmenton 11-26 Consent for Treatment [id number] 44#1.00TIFF [facility] Physician Orderon 12-23-2022 Physician Order [id number]#1.00TIFF [facility] XR Chest 2 Viewson XR [...] mGy = . DAP = . Normal [facility] Consent for Treatmenton 07-26 Consent for Treatment [id number]#[id number]:127 Normal [facility] Physician Orderon 08-16-2022 Physician Order [id number]#[id number]:127 Normal [facility] XR Chest 2 Viewson 3 XR [...] in mGy = na DAP = na [facility] Coding Summary.on 05-30-2022 Coding Summary. CD:[id number] bWw+PGhlYWQ+EE4XSCR gM40eeINurU0pV3AYVK lOSywgQVBQTElOSyIgb cXjQV4pxEUsGNBx IC8+RN3eWBMuLkalkJL ib0V6fIR7J29xiy1pLN flrOJ8BMRpVbPknggty 7qejOc8MIisQbfqGaUg EXIwuZ32NZM9dM16Lh4 0wNBwpWQuo3eqcWb8Kk ApPQBvAMI5oFnzVNmsf 5MzGINpE83djMYqg5H2 IGNvbGxhcHNlOyBlbXB 4gU6eYSayibhav2bvkp wwUzo1tg81zUIuk6M2v KG6R9BucjY4LGRtpJGe MylhxAXGhH7fiunse2t wpigbCwYmIKPgATs2HK c3BCJudHcyJvSjTQ22P BD0CHFopxKnP1NzUDEt vLmmDaE8w5Y2Bj5OF3N THsaeL6DHKNKHNRhjcM Q+TP06ep60C6XrQjiwB yu9RJNeBJF4gMI3gK4i DOBwMSdvj4I5gQY6D9G zosKmcd6ds0wiDGJpOJ nyU38soGHrn5B0RXUyb AO4RQKzgYfgHyYbwZ87 Oyc+IHIepKjol8SuEwl ox2eba1fqaJf8GgryMB WvdsSfxKxbQBZ7x4QlC f7xPXRivHA6vHF4pX1o FeHtGmX1COqiT436WoM nnOQwRjhnD34fI8FkaW A+LFAyWpo7TOCttLdrJ A4kB0FiODBxliqfuEOl oCzyWE6yJCRsegjoIBK ukC3qPPCbG9d9FgElZy D7EOmaB0UeISJvppgvN d90jK0zTaOvDcM1HZga S2GknwF9PDZsdXKjVGi lJJH2I87gg9L3ZAVdUU CcHXC1fIH5rX2wjQflw jogbGVmdDsgdmVydGlj MQcqESibO130GXAhmHb nPkNvZGluZyBEYXRlOi AgMDQvMDYvMjAyMzwvd GQ+QXBrBCQ2eYlpHMJn sODcCQovQh6jrAlsvSi vSW1dSXUrvfdjJVRfnF 5wJKFejGXetAaeXJ5eM JCcylehg966BvSyXTF4 AETtmZEmT6IdyM4cHlM dJQDuXJXeU9EiyXBwJE ueY872RExvPpB6RQPfh qFaL7DtDSGpbAkdKpH6 e3Y5Ck4Vl2AsmdjzX6H hzJMuTqVcCxoxTTs5X1 RkPjwvdHI+MX84MZOnN G43AHf9WLV1cOfzZSxq NWTmQ9SarL7eEqPnCAM kZGRkOyc+PHRhYmxlIH dpZHRoPScxMDAlJyBzd KweZI4uTb6yEJKoZVRq zMfgnPQsFpWfx2pbWLP eGCuoBI9afAgjI6LhlD U2GTBpz8l5Qm11B19fC 3JvdXA+COZprTD3jPU7 cR2bGnPlPbK0GBarK33 0YbQeoWQrQiola9wdo9 pkyQh1ZiE7MSGjteAdd EjlENT9u6QuVm81J49g IHdpZHRoPSIxNSUiIHZ gyIpziq0bdS4lQk5+PG NvxMN8kMO2uZ4vMkTxQ lQ2DKreT874HeCveCVn Iryim6pgc8trwOi1PlI tLMLnohDsyBwnZWI0a8 KdZl73O6LanMkhm4BnI cr2iz97dCIvg7L2fIM8 Z8ShSRKvlwmjaSHtxLr dNX0vFLWiuhuqJDGloL 6aLKTnY7b9QqWrTgI8Y VjzP6IwasZ4PFAezDAd XCYigIDRqR4acfgpw1p ydxzvQqWxYJFmYVi7VE t5YDLjmFdfQvGjNSN6L yY8GKF8vTUhwB4pdWeu tgxhzD5uMcg+XSQ4lFV siYKAOV2vRtaqvKI+PH SnBCN4uWwlCYtvWQPsr L0oBNDkN1z8SuFgSpS7 IAnaG3KufnH4QDGzuDA dMCPjeUYNxE7rlmgkv1 ekuvxyZlStKIAaANb0A Kn6LBAdoAhrLkAyOME3 WvR5UMK8gNAgeV1rsXr yicjojS9sJbb+QmlydG ijUQP2RIs6R6CtMcx7M PWarXkhHO3lkXVzWTez Ry0wgFrsvXyuGG3oVGF uhbzjy643ZbJgv5kxEJ SwcBTdJVqgCKX2N19pc 9O4SBMuGYLkRPO6lUA6 kP9cwPdqvuyjnGYtaGc gdmVydGljYWwtYWxpZ2 08MRMsaYfbYqDpWSn8H 7YxStj3AMXgcViiJT5f zORuUHhhDg3etHkrtQw pPS1fTEVnaehip900Vc Ocb0kwGPGcdWNtXSmbZ II1L85ml4N7MSXuFKPq WAT1gZO9cZ7riIvbpfg gbGVmdDsgdmVydGljYW uwVKwgM631YFCfnSneP aWlmSo2G0TqAtd7HSYn mCkhNO4yvBWfLKbxDp6 piTeemYusPH3pGGXjno dmh085ZrDwb1oiWCWlk KGbXZvnOWC8D78yh1S5 TZUwCLMdMYD5pNH1kF2 hbGlnbjogbGVmdDsgdm RbhNumCAvmINxgI178Q HRvcDsnPlBhdGllbnQg AYyvGVu3R1PjSobtaNA +FL18KZNaLL30fMNwzO Sga5vncDb7NtMcPUCpF FZ2gZebZMlrd1ImSOWt O00ekSRgc9G7LNCxnGl wyAAnEcMyvAN5mU0dWR viblydo2dixbgwKueyj 2kmqx26jN85T78lBWzw ZHRoPSIzMCUiIHZhbGl dti7jdB9uXk0+PGNvbC T8qAC3jO2cAJFmVfW5I PyvV026YeDryKAkEmax o8uou5thiLf2FmL7VFM irkPveTzaFCP7a5GeRy 09E85lMOpvIXAmQZKkY ULpLGNpfYsnrv8vmJ4x Ii8+BITwcFW7lGE2nW5 lIsLkKpN8ESqdS451Xn WvbXHxYvpnL71zC2Qnq XA+NILsNgs0HNWssHyo CM9jtEFtHYduVh9rEUU 9SmBhHrQuUUcrY2XjBR AnnhmogpjfiWN6CICrS OTxkT12Lr7olVsbVULk xBTSiW1aywyma5clckj aAiLrQHPeZYe7DIr6YU UrqQipJuWiUYC4YaH4S HD2nGHgxH6vdMnstmys dC2qS5WmRFTphboxNh0 2zL9gIcKoSsW8NGotDb c+QkVITktFIEpyLCBUS L1CMUVkTGtCOK92M5Tz Vwb7MILhmRzkRJ1opCT aFWzkIk0neJliuZdgFJ 6dCNUiqrhhBZOrjH7yY BHlwWUzdPlfXK3jYKLv gtmpy392RrErSCW7UQN jfDRzY1MmqQ4pWeEeEN BnNYIvA4HxvMYbHHwbA 325OEwqQxJ2QDNrjwMl B9SaTLKseTmnUrN2v9R 1Ca5cMX7mFH1qKPksOP 97CO97oSGfw7R8mID3L 7RgPPAtmkibwpidzPZ9 XPQuQCOpqL54zFClNAy xQu4vp0Z5e090SXArQS RfuK98Ca3flMtjJYEoz OJFtA1jlpfbr5gzvlva AvCrZBDjNWn5YBw3NAV zhAcxLaPsFXS8MaX8GV S3bCPgbW1zbPyrbbatb G9wOyc+NTIgWWVhcnM8 Q4NwMdy3KIFomFzpCF1 exONaMIpmWh5fqUfdjE ttBS8jAGLowvawUCLwp W0eFZBlkBYspRjcQI5o QQNtkykny332EqYgRML 6TPGouMWeN7AbwE4yCq OmXELoFAMpA3QbeRBlE NiaG593QQudJkJ4GSMr naOhI3GoUABwpAvePoK 8m4O9Lc1GEFsoNT52HC 24aCFfu4R5bPC3I6ReR GRgabblnrnhiWR8QSWd GGMgqX29nOBwBDwyMo5 em6H1x720AWFhMAPwhI 95Ec0xuMarUJGeyHDWn H9xzftsj5usrtyqCrVf NNNlBFl3SDp5PCQspDb zDqQrIME3JsL9AYK1oG ElvX2wjIxreesrfZ1pM yc+W3C9vCU1rYQexIwb dGQ+DD02ad54L5GvTny dPge9LZCzAHA0aXH5uA 1sKWCtGMxni9Z2oOE0U 8AjwwYvcg8ub8agJBRv RRhyK41eyUCyi1H6MZD zsSA2HAItxFspOkYigU 93Oyc+OLBczDwjk5MqS ppng0fsa7ednAy7VbEy NDWibsEkpGsyNVX0p9C xZb58A27gKEfzBCNbXS WsJWFbQFLmvCsggc0af G9wIi8+DHPpyJA6mGV9 uX3lMyNwMdP5QBynO17 4FvEuiZSlPwzyo6hzy5 ulqDd4AoDiMVKkwxCqg UktGHQ6f4AtKa47P0In vHldk1WyXwv4yn23yPU gb7J0aNU6U7AuXHIjmo jraOYeoEhyRW3dTEWhq qvkJGKwcX1mWKFrE3a5 VbZbZlD4FLwxK3TwpcS 6IGJvbGQgMTBwdCBUaW 1fkmkqm1ggwlexEeLbC MRfKUr6OAy2BVRteKwh LzCxUKM7BrI4ZZX9bEC plM1xbFsenlnkqG8sRm c+QKx7y3simPPjPJ7no NJ6BY43JN57eLRxk7V3 fCU3U5AyZPLhmrremlm gyKY0QBMwKOBzpH74Si 6nrUdsBa4cQXOhJTB4Q IAbfPYqT8ZqtH9fNhLa JKTnLDAfH0MmfXUaJUa aA212ZOxdCoN2FZIbts GyM1QpKXJmdRwlUfV4s 3L3Yf2FWQ81LL29TV16 lLEpy0L0vFV9W8PlYNV kagerpxxfoFC2ZTGyZE VitL92Cd6ohQcnIp0yT ZXmGRC0BXMdgNIoL1Hn eB3nHpVnHEKkGRRaG1K nyUCiUAicF888RKdtEc K6PMQulhFwV9GbETAje EisPrM4k8K6Wl1LVo09 OS76ZZ02eVWyr0Q4xKJ 6V6BcIOWnrxpuszhcgW N5GROsELQgwD53Ev1gz WxdBu9sXAXpJYT9EAHw gEGgJ7UjvL7zXhMzTXN xBGAjZ0RbrOCjEGsrA1 71VJskTdU5YFNjvmGaR 4JdJBKqnWnnPyY2i2F3 Ii4HLWnjwea3R6MkFmn vdHI+GF91GFDeMW62dM MroLPmp2ypzOh0AuNjK BWlMMF2xPahLYqlg5Ft XMVvP05w (more content not included)... [facility] Consent for Treatmenton 04-25 Consent for Treatment [id number]:127 [facility] Physician Orderon 05-22-2022 Physician Order [id number]#[id number]:127 Normal [facility] XR Chest 2 Viewson 3 XR [...] mGy = na DAP = na Normal [facility] Coding Summary.on 05-15-2022 Coding Summary. CD:[id number] VMw9uXd+PGhlYWQ+PE1 GCPQwP55lpXSwcO5tC9 NMTElOSywgQVBQTElOS kVbafGrSI4inRYxPBLi IC8+UA8aANYlFtweiWI bm0D8iHC5X35osp4xGZ bpoFC6NUEnPoNcdwpzd 9iqoQe5YOogWtzoQaWr MBTqbK11VXL2eL42Qy4 3nKLqzHEla2ekhFt1Wx CgNFXrJVP3fZpzPIsxs 4DyOVChG21gzIHkw3S2 IGNvbGxhcHNlOyBlbXB 6fT1jTHyqwwfto5rosk fbOdt6ck89kYCey8D5r QY9V3WaxwM9HXKvyFWq WigtwKGVrC4ikessv8m qyqfrLoDpEYJnHPa5QU b4OGOweRdeFfTnND38X RT4BJHcyiFoO2VoEZYr cXnlCeY1p7M8Ey8SO3Q XQnkpZ7HFSDQMSZmbuF Q+LV56qx32S9HtCbvdO eu2PMRaWUX7yEG3tQ6z AEHrBAsfa1G0lBW7S5T ulcCvde4ut3cpYJRzTU znO63eqXZcz7H8SGVhr JN0GWCneHyrCbYbdM55 Oyc+VGSzeJjxw5FpMkz qt5prl0kmgJx8ZmijDN LspkConOdsQXH4i5XjR i6nBCSjjWA3gAB5nV5o QmBlMeI3CObeE018UfC vrQCxPhcuH12mK4DdfP A+FVAyChb3MIIjvQhfW E4pX4VjFVTwuhsvtEWb rDanOZ0zVBEyloqgCHA zuB3tUTWlK8y8GpXoQs H4ORqpU6CuGMOhruvhN m24nR8lCjWyFvN0VZju U1LpzwT4RRWqpYQeZJg mSUO6J51sl9R2LRMpUB ZsVAX6aKU1pR4fpCwpz jogbGVmdDsgdmVydGlj YPtiZItlF666TBCjiMn nPkNvZGluZyBEYXRlOi AgMDMvMjIvMjAyMzwvd GQ+TCWzIWG2dUeeZDAm pGMbSKymSf0pyWoesQq dIP4cTTFzctsoQIHgmX 4nWXUydXFyuLfxIB2vT QJohipgl236FkXrQVN1 UTGadVWtH1FsrT4nYhG iXGLlPZRoZ4LiiWIgCN bcO716WAjtEkF8SNSrz hRmK2HnCOEdpEglLdE0 u3Q0Io7Yw7LrvjajP0X itYMjNeSuCdrwITh6W3 RkPjwvdHI+JI81EEGzJ N12BLb4RJH8mBeuRGmb YSDnY6VwmP9gKpIdZSI kZGRkOyc+PHRhYmxlIH dpZHRoPScxMDAlJyBzd GrrPA5iXx2bIZXlBTOx vOntpJMcRhCbv8iuVQZ dMPoaZJ0vsRslW1SzuC Z7EGGnz8d2Pt31J88lV 3JvdXA+FCMqfCU3dTL1 gP1jKkBzFpT9JJtjZ37 4CpQddPYbFetwa1kss3 wcoLo3TaS1PMVmsbVqr TefXZW7w5FpKm94B22g IHdpZHRoPSIxNSUiIHZ rtChlor8znI3yGz0+PG LfuXR5wVN8zH4eTwFzB hP7QAxfD387PwRasACh Ycjgd0xcm3tsnEa5ZvQ oECJxjgXmcGkmOLH8u5 LbBe78D0OmuAeal6FoA tu0sn03nIYol3S3hHZ2 A8XiMVKxtsjltAVyeCs dED8tSHKcwganFSBzqW 7aZWNcE0q2ElBxLhW4M VfqG7BvavZ9CISqiYFm MLBmkQFCwH6gyisnm1n epjodKoNpESDdONd0UG c6FVOkhFiyBbQqNCP7R zZ1BIX5xUXxuX1wpGjt bvzdbA4qJck+GFR5sMK wuPFEFN8eYgqevGS+PH SnRJM3uUpvCHasHWYwf T3xWFUrK7p6TjFpNhS5 COizO6VrgqC0TBGkjVG qIQBbwDKBzW2cxmodr2 zfukzgKxMpNVWnQGh4Y Fb5YYQadGnvYpBzZSR8 JuX4OXT4dXHwfN7yiLy btgvmnS4bHbr+QmlydG vbIYJ2PBu0Q6BnSpq6I EWcbKyiBA0ucMVsBQmc Qf9itWlyeMixSY0hRQS xyjsag530MmGnh4elPW XreGCtEGwuXSB9Y85ee 6U5GLLuHCTiWOU2oPW2 iU8faIsoiayxqGYxdYt gdmVydGljYWwtYWxpZ2 91BFFdoLazFgVhFWn8D 1PeJzf5ULVnkPcrTO0n oADuIJbfMd7dnGwisEr xUR2gUDTpzamhj711Zd Fex5hjFNWedWTgDVzrZ ZN0Z74ty8R7ZUOfWLJa MWU9uLY4fR9klFvfivu gbGVmdDsgdmVydGljYW zkJNdkC876NMZyhJjhM xCrbZs0L5ZjYeh2VOAd eVatIX9skTDsAKgtTw8 ynIxibSuqVP3wQJCxsz lgn135JhTdl9dqKLSlj HVdUKgzWUJ3M34xr3O3 VWOpLBHeQCE0eUN0iS5 hbGlnbjogbGVmdDsgdm GdfBplPKowKInlE580I HRvcDsnPlBhdGllbnQg LQdmATq4B7HuGxufgQZ +DB96KUQhDG79uDRfsG Flx9qjuMo2ThXnGISzE FC3iKxtEWdtm2JvLOMv D26vxXNyo7Q6OLOjeVu ixZQdVoJrgAT2aY0pGK jdrqtuk6uxmhuwIeuey 2pleg77cE82J95mDNpe ZHRoPSIzMCUiIHZhbGl ljr6ohY9oGx3+PGNvbC Q5uRO2kV4rSNZgExV8E XguW876UeFftZXrQbob s2ryx8pdlKo3ZaY6UTY xrcQceTuaEZB8b6LjPq 42T11pEXoqRVEpEDDdZ OVsMORvcOepio0uaF6r Ii8+YAMdqDC4uRQ8pP1 lBrPkTpA5QUuaY012Dj VuxTIsOybrC76cL3Yok XA+JMVpOap6RRVyiAxa FT8wuZKiWVlkWt3sMVM 6OmBgEqZpFXnqL7CzSE HhbuyynmatsQC1LRSjO IBthA56St3gvHqsLPBg eCHZgV4kllslx1irpwd kYtTmGIOxATr0MBd7WC WppQxqKbNiOHF4JcX2D TW2zFUqgY9hdQmxkyda tJ4cW8LsNIWrhxslOf9 3yO1uDtQeZqA0OVwxAf c+QkVITktFIEpyLCBUS R9DDWVuZTcEWS98Z5Gu Ktt0WWKezLhcZC1vyBD cQRtvWj6ddMusnOeoPK 1pTAUotqtnSEAqiM7qP FUucYLccUdrAZ0xWCBz punai699AmViLEH8TIC eoVAnX4GiuR3yJyKlYL MsKWDcA8BycODpRYwbZ 810QIjpJeY9XQHzvcDe Z4SpUGFenAnvUpT9g8H 3Fu5aEZ8zDA1eZHgpOL 96SH75aUHnt1A2sQQ8H 8LpKSElwvcqoehogGH2 CDRpSCLdyC39gOEwMVl oSs9vc8U0b358YFDyXT IgcW89Tm7iuOoxFPOpi IHGsW6oucnwe2mvdzwn ZwRsUCDoOUl6RPb1PKA hpCdyPcNyYNW8ZhY3QE C9wPYpnZ9ctLvptvldv G9wOyc+NTIgWWVhcnM8 I2IfCrh4JVEirRruHC9 okIVfFXlyIh2ydWbzdC bhEN2vILZrdsqwDXMzc Z8nYIFnuAOvkEugIT5k YFMlsmzim159AaZqMWG 6XZLvsCEkC9WyjS3xZw WuBAQuYUBjX1YacWXlS OuoQ089NVocNgJ7JSEj xeFpJ4PrQDFssHbfFjJ 9h8B0Gt0YZLdeOJ26BT 87tTZjq1B8cAR2P5FdA HKccnftgzashTY8KBKd MIOdzX87gWLfXXbjJd9 lg9X2r271WJHgUTHvoS 78Rb9uuNlnNNBryUCBa P6srpoqj6qxmbqtUxGu PCCcDDu4DEf6NUGcnYh yKkEwTLP0FaZ5YOH8dH LujO6nxWknaktueE4iL yc+Z7V0xCL9aARgsKbc dGQ+EX03tn83D2WbMth gDdz3NNEzDVV7oYO9hV 6nNTWoTGqnw3G1vZE7G 2EdigZevs3au2azZWSt KGczI21bvHWgg7G1HFT sdRX4BHDvvTgwMlAxkT 93Oyc+VXJtrVbmg0UtD qyxb1jpu8oetVw2FxOa ZJGpesVqpCggAWI2x5O vUj61T09yZDkjKOFwZH ApXWIpEWHfiTyvtk5bi G9wIi8+ULGncPL8jPS5 uQ9tAnWxPqF7EDxuA56 7MdPkuLIpGqopf1nly5 ookNq7TfOvTPBrcvVmb ZdtYAE5p2SbIj92X9Af kSjhy0PtSbt2bp08mKM zx0C5qEK5A1XyRQEhbr litZXvnXuzPB1lFHGsl gtlBQBhxS5gFFJbN0f1 MjKoFuO9CZchM0NjteA 6IGJvbGQgMTBwdCBUaW 7mclxga2fylhxpNxEhP HFxVPf8UPq4MZVmsVib KjZzHOL1KbJ2EUR7nQA xyH2oeGeknbhhdO4gCx c+XJa3v1soeZMaEH6kc IN1MJ36HN16uWNcu4K6 wIO3L8PgWQPdfjzlwir pfCA7IGLlKQHfyI34Pe 7qxQxbEh9iGHQaEGL3P BZasAHyW6RzdR8sZcUk FSHeZTCdO2IxnNTjILt qJ653HZuvZeK5AEJpkw ZqE7RiCHVkhMltMdC3l 8S0Pu1WUC12SD52XE59 xFNvq0L6zTD1K6OhYVD cpvsqwjgafPV4LURpIK CrnA58Ay2lwUemZz2dI QKzGUC3LMIzhNCfL2Cs hZ9bPuCvANBxSJTrU0M ryTGsIRdkE353HOruZv I2WBZsmiYcR7JvEMTie OmoSoD1o2A1Iv5QNf32 HJ38IG86uMHiz4H3mKN 2V8LeISQmglcwdedgyV S9LNWvXLVdjO44Uf4yp LgwLo8fBMPcAFL4KKYn mLNiD7KhaF0iVeWeWWV nYCYpL5FjlKJfQAgpX8 99OMxxWyF2FNJkviDoR 7QrKSGbdKdlGbH7x7B7 Jg5PTUrgmdj6T2KmDjp vdHI+KJ25YUKtZL10aS CcsRVax1zfmXw3TvVwC MKdZHN7nOypYZpzv8Up ZXIt (more content not included)... Normal [facility] Consent for Treatmenton 04-24 Consent for Treatment [id number] B6#1.00CD:127 Normal [facility] Physician Orderon 05-06-2022 Physician Order [id number]#1.00CD:127 Normal [facility] XR Chest 2 Viewson 3 XR [...] mGy = na DAP = na Normal [facility] POC COVID-19, MOLECULARon SARS-COV-2 (PERES ID) Not Detected Normal Not Detected [facility] Comment on above: Result Comment: This [...] at the following links: For Healthcare Providers: https://www.fda.gov/media/775060/download For Patients: https://www.fda.gov/media/353551/download Performed By: #### P [id number] #### OED FSED POCT LAB [address] [place] [address] Rao Pérez, Ph.d. [id number] POC Troponin Ion 10-10-2019 Interpretation and review of laboratory results Normal [facility] Troponin I.cardiac [Mass/Vol] ng/mL <0.05 ng/mL [facility] XR CHEST PA/APon 10-10-2019 XR CHEST PA/AP [...] are clear. IMPRESSION: No acute cardiopulmonary disease. [employer] Workstation ID: [id number] Dictated by: CHACORTA ROCHA on Sat Oct 09, 2019 11:08:51 PM EDT Transcribed by: WILLIAMS THOMASON on Sat Oct 09, 2019 11:24:16 PM EDT Finalized by: CHACORTA ROCHA on Mon 2019 6:06:07 AM EDT [facility] Comment on above: Order Comment: Injur y/Trauma [...] LAFB QRS axis: left T Inversion: aVL HI Interval: 168 QRS Interval: 88 QT Interval: 433 Clinical impression: non-specific ECG [facility] POC CBC and Differentialon 0 10-09-2019 Basophils (Bld) [#/Vol] 0.06 10*3/uL [facility] Basophils/100 WBC (Bld) 0.6 % [facility] Eosinophils (Bld) [#/Vol] 0.17 10*3/uL [facility] Eosinophils/100 WBC (Bld) 1.6 % [facility] Erythrocyte distribution width (RBC) [Entitic vol] 15.2 % High 11.6 - 14.8 % [facility] Hematocrit (Bld) [Volume fraction] 45.8 % 41 - 53 % [facility] Hemoglobin (Bld) [Mass/Vol] 15.3 g/dL 13.5 - 17.5 g/dL [facility] Immature granulocytes (Bld) [#/Vol] 0.07 10*3/uL [facility] Immature granulocytes/100 WBC (Bld) 0.70 % [facility] Comment on above: The IG parameter is the percentage of metamyelocytes, myelocytes and promyelocytes. An immature granulocyte count (IG) of 1% or more suggests the possibility of infection, an IG count of 3% is very likely related to an infection. Interpretation and review of laboratory results Abnormal [facility] Lymphocytes (Bld) [#/Vol] 1.91 10*3/uL [facility] Lymphocytes/100 WBC (Bld) 18.2 % [facility] MCH (RBC) [Entitic mass] 27.8 pg 26 - 34 pg [facility] MCHC (RBC) [Mass/Vol] 33.4 g/dL 31 - 37 g/dL [facility] MCV (RBC) [Entitic vol] 83.1 fL 80 - 100 fL [facility] Monocytes (Bld) [#/Vol] 0.65 10*3/uL [facility] Monocytes/100 WBC (Bld) 6.2 % [facility] Neutrophils (Bld) [#/Vol] 7.65 10*3/uL High [facility] Neutrophils/100 WBC (Bld) 72.7 % [facility] Platelet mean volume (Bld) [Entitic vol] 10.0 fL 9.4 - 12.4 fL [facility] Platelets (Bld) [#/Vol] 166 10*3/uL [facility] RBC (Bld) [#/Vol] 5.51 10*6/uL [facility] WBC (Bld) [#/Vol] 10.51 10*3/uL [facility] POC Covid-19, Molecularon Interpretation and review of laboratory results Normal [facility] SARS-CoV-2 Not Detected Not Detected [facility] Comment on above: This test was perfor [...] at the following links: For Healthcare Providers: https://www.fda.gov/media/234930/download For Patients: https://www.fda.gov/media/840228/download POC Troponin Ion 10-09-2019 Interpretation and review of laboratory results Normal [facility] Troponin I.cardiac [Mass/Vol] ng/mL <0.05 ng/mL [facility] POC Venous Blood Gases with Full Panelon 10-09-2019 Base excess Calc (BldV) [Moles/Vol] 0.9 mmol/L [facility] Calcium.ionized [Mass/Vol] 4.1 mg/dL Low 4.5 - 5.3 mg/dL [facility] Chloride [Moles/Vol] 101 mmol/L 98 - 10 8 mmol/L [facility] CO2 (BldV) [Partial pressure] 46.0 mm[Hg] [facility] Creatinine [Mass/Vol] 0.84 mg/dL 0.50 - 1.30 [facility] GFR/1.73 sq M predicted among non-blacks MDRD (S/P/Bld) [Vol rate/Area] The eGFR should be used for monitoring renal function only and not for medication dosing. Specimens collected in a lithium heparin tube may show erroneous pO2, pCO2 and related calculations due to aerobic handling. If the most accurate venous blood gas results are needed, use a heparinized blood gas syringe. [facility] GFR/1.73 sq M.predicted MDRD (S/P/Bld) [Vol rate/Area] 103 mL/min/{1.73_m2} >=60 mL/min/1.73 m2 [facility] Glucose [Mass/Vol] 202 mg/dL High 65 - 99 mg/dL [facility] HCO3 (Bld) [Moles/Vol] 26.7 mmol/L 24 - 28 mmol/L [facility] Hematocrit (Bld) [Volume fraction] 46 % 41 - 53 % [facility] Hemoglobin (Bld) [Mass/Vol] 15.5 g/dL 13.5 - 17.5 g/dL [facility] Interpretation and review of laboratory results Abnormal [facility] Lactate [Moles/Vol] 1.6 mmol/L 0.6 - 2 mmol/L [facility] Oxygen (BldV) [Partial pressure] 39 mm[Hg] [facility] Oxygen saturation in Venous blood 71.7 % High 40 - 70 % [facility] pH (BldV) 7.37 [pH] [facility] Potassium [Moles/Vol] 4.1 mmol/L 3.5 - 5.1 mmol/L [facility] Sodium [Moles/Vol] 137 mmol/L 135 - 145 mmol/L [facility] Urea nitrogen [Mass/Vol] 8 mg/dL 8 - 25 mg/dL [facility] Complete PFTon 04-01-2017 DL Adj Pre 19.5 [...] Time Vital Sign Value Performing Clinician Facility 08-23-2024 15:24-0400 Body height 177.8 cm Jazz Mary Ellen PEREZ Work Phone: [facility] 08-23-2024 15:24-0400 Body mass index (BMI) [Ratio] 51.7 kg/m2 Jazz Mary Ellen FUNEZN Work Phone: [facility] 08-23-2024 15:24-0400 Body weight 163.74 kg Jazz Mary Ellen COMPOUND MACHINE OPERATOR Work Phone: [facility] 08-23-2024 15:24-0400 Diastolic blood pressure 62 mm[Hg] Jazz Hyde COMPOUND MACHINE OPERATOR Work Phone: [facility] 08-23-2024 15:24-0400 Heart rate 81 /min Jazz Mary Ellen PEREZ Work Phone: [facility] 08-23-2024 15:24-0400 Respiratory rate 12 /min Jazz Mary Ellen COMPOUND MACHINE OPERATOR Work Phone: [facility] 08-23-2024 15:24-0400 SaO2% (BldA) [Mass fraction] 95 % Jazz Mary Ellen COMPOUND MACHINE OPERATOR Work Phone: [facility] 08-23-2024 15:24-0400 Systolic blood pressure 112 mm[Hg] Jazz Hyde APRN Work Phone: [facility] 06-28-2024 08:270400 Body height 177.8 cm [facility] 06-28-2024 08:27-0400 Body mass index (BMI) [Ratio] 52.6 kg/m2 [facility] 06-28-2024 08:27-0400 Body temperature 96.9 [degF] [facility] 06-28-2024 08:27-0400 Body weight 166.46 kg [facility] 06-28-2024 08:27-0400 Diastolic blood pressure 70 mm[Hg] [facility] 06-28-2024 08:27-0400 Heart rate 60 /min [facility] 06-28-2024 08:27-0400 SaO2% (BldA) [Mass fraction] 94 % [facility] 06-28-2024 08:27-0400 Systolic blood pressure 122 mm[Hg] [facility] 04-28-2024 13:07-0500 Body height 177.8 cm Jazz Hyde APRN Work Phone: [facility] 04-28-2024 13:07-0500 Body mass index (BMI) [Ratio] 52.2 kg/m2 Jazz Hyde APRN Work Phone: [facility] 04-28-2024 13:07-0500 Body temperature 97.4 [degF] Jazz Hyde APRN Work Phone: [facility] 04-28-2024 13:07-0500 Body weight 165.1 kg Jazz Hyde COMPOUND MACHINE OPERATOR Work Phone: [facility] 04-28-2024 13:07-0500 Diastolic blood pressure 82 mm[Hg] Jazz Hyde APRN Work Phone: [facility] 04-28-2024 13:07-0500 Heart rate 82 /min Jazz Hyde APRN Work Phone: [facility] 04-28-2024 13:07-0500 SaO2% (BldA) [Mass fraction] 93 % Jazz Hyde COMPOUND MACHINE OPERATOR Work Phone: [facility] 04-28-2024 13:07-0500 Systolic blood pressure 130 mm[Hg] Jazz Hyde APRN Work Phone: [facility] 03-30-2024 08:26-0500 Body height 177.8 cm Jazz Hyde APRN Work Phone: [facility] 03-30-2024 08:26-0500 Body mass index (BMI) [Ratio] 54.1 kg/m2 Jazz Mosesjuarez COMPOUND MACHINE OPERATOR Work Phone: [facility] 03-30-2024 08:26-0500 Body temperature 97.8 [degF] Jazz Mary Ellen COMPOUND MACHINE OPERATOR Work Phone: [facility] 03-30-2024 08:26-0500 Body weight 171.11 kg Jazz Mosesjuarez COMPOUND MACHINE OPERATOR Work Phone: [facility] 03-30-2024 08:26-0500 Diastolic blood pressure 72 mm[Hg] Jazz Mary Ellen COMPOUND MACHINE OPERATOR Work Phone: [facility] 03-30-2024 08:26-0500 Heart rate 103 /min Jazz Mary Ellen COMPOUND MACHINE OPERATOR Work Phone: [facility] 03-30-2024 08:26-0500 SaO2% (BldA) [Mass fraction] 90 % Jazz Mosesjuarez COMPOUND MACHINE OPERATOR Work Phone: [facility] 03-30-2024 08:26-0500 Systolic blood pressure 122 mm[Hg] Jazz Mosesjuarez COMPOUND MACHINE OPERATOR Work Phone: [facility] 02-10-2024 10:53-0500 Body height 177.8 cm Jazz Mary Ellen COMPOUND MACHINE OPERATOR Work Phone: [facility] 02-10-2024 10:53-0500 Body mass index (BMI) [Ratio] 53.7 kg/m2 Jazz Mary Ellen COMPOUND MACHINE OPERATOR Work Phone: [facility] 02-10-2024 10:53-0500 Body temperature 96.3 [degF] Jazz Mary Ellen FUNEZN Work Phone: [facility] 02-10-2024 10:53-0500 Body weight 169.81 kg Jazz Mary Ellen FUNEZN Work Phone: [facility] 02-10-2024 10:53-0500 Diastolic blood pressure 78 mm[Hg] Jazz Mosesjuarez PEREZ Work Phone: [facility] 02-10-2024 10:53-0500 Heart rate 81 /min Jazz Kwonfaraz PEREZ Work Phone: [facility] 02-10-2024 10:53-0500 SaO2% (BldA) [Mass fraction] 92 % Jazz Mosesjuarez PEREZ Work Phone: [facility] 02-10-2024 10:53-0500 Systolic blood pressure 136 mm[Hg] Jazz Mosesjuarez PEREZ Work Phone: [facility] 12-26-2023 08:58-0400 Body height 177.8 cm [facility] 12-26-2023 08:58-0400 Body mass index (BMI) [Ratio] 53.8 kg/m2 [facility] 12-26-2023 08:58-0400 Body temperature 96.6 [degF] [facility] 12-26-2023 08:58-0400 Body weight 170.23 kg [facility] 12-26-2023 08:58-0400 Diastolic blood pressure 78 mm[Hg] [facility] 12-26-2023 08:58-0400 Heart rate 116 /min [facility] 12-26-2023 08:58-0400 SaO2% (BldA) [Mass fraction] 93 % [facility] 12-26-2023 08:58-0400 Systolic blood pressure 138 mm[Hg] [facility] 11-25-2023 08:33-0400 Body height 177.8 cm [facility] 11-25-2023 08:33-0400 Body mass index (BMI) [Ratio] 53.4 kg/m2 [facility] 11-25-2023 08:33-0400 Body temperature 97.3 [degF] [facility] 11-25-2023 08:33-0400 Body weight 168.79 kg [facility] 11-25-2023 08:33-0400 Diastolic blood pressure 64 mm[Hg] [facility] 11-25-2023 08:33-0400 Heart rate 72 /min [facility] 11-25-2023 08:33-0400 SaO2% (BldA) [Mass fraction] 90 % [facility] 11-25-2023 08:33-0400 Systolic blood pressure 118 mm[Hg] [facility] 08-18-2023 08:28-0400 Body height 177.8 cm [facility] 08-18-2023 08:28-0400 Body mass index (BMI) [Ratio] 52.4 kg/m2 [facility] 08-18-2023 08:28-0400 Body weight 166.01 kg [facility] 08-18-2023 08:28-0400 Diastolic blood pressure 72 mm[Hg] [facility] 08-18-2023 08:28-0400 Heart rate 85 /min [facility] 08-18-2023 08:28-0400 SaO2% (BldA) [Mass fraction] 94 % [facility] 08-18-2023 08:28-0400 Systolic blood pressure 110 mm[Hg] [facility] 08-03-2021 10:25-0400 Blood Pressure Location [facility] 08-03-2021 10:25-0400 Diastolic blood pressure 67 mm[Hg] [facility] 08-03-2021 10:25-0400 Heart rate 87 /min [facility] 08-03-2021 10:25-0400 SaO2% (BldA) [Mass fraction] 95 % Basem [facility] 08-03-2021 10:25-0400 Systolic blood pressure 106 mm[Hg] [facility] 10-10-2019 00:30-0400 Pulse Oximetry 97 % Myah Valle [facility] 10-10-2019 00:15-0400 Pulse (Heart Rate) 92 /[facility]10[facility] 00:15-0400 Respiratory Rate 20 /min Myah Valle [facility] 10-09-2019 23:32-0400 BP Diastolic 71 mm[Hg] Myah Valle [facility] 10-09-2019 23:32-0400 BP Systolic 133 mm[Hg] Myah Valle [facility] 10-09-2019 22:37-0400 BMI (Body Mass Index) 52.23 kg/m2 Myah Valle [facility] 10-09-2019 22:37-0400 Body Temperature 98.2 [degF] Myah Valle [facility] 10-09-2019 22:37-0400 Body weight 167.83 kg Myahmoise Valle [facility] 10-09-2019 22:37-0400 Height 177.8 cm Myahmoise Valle [facility] 12-10-2018 10:19-0400 BP Diastolic 78 mm[Hg] [facility] 12-10-2018 10:19-0400 BP Systolic 132 mm[Hg] Angelo Rios [facility] 12-10-2018 10:19-0400 Pulse (Heart Rate) 78 /[facility]10[facility]2018 10:19-0400 Pulse Oximetry 93 % [facility] Comment on above: 12-10-2018 10:19-0400 Respiratory Rate 20 /min [facility] 06-15-2018 11:07-0400 BMI (Body Mass Index) 54.39 kg/m2 [facility] 06-15-2018 11:07-0400 Body Temperature 97.81 [degF] [facility] 06-15-2018 11:07-0400 Body weight 176.9 kg [facility] 06-15-2018 11:07-0400 BP Diastolic 77 mm[Hg] [facility] 06-15-2018 11:07-0400 BP Systolic 152 mm[Hg] [facility] 06-15-2018 11:07-0400 Height 180.3 cm Debbie Amador [facility] 06-15-2018 11:07-0400 Pulse (Heart Rate) 76 /min Debbie Amador [facility] 06-15-2018 11:07-0400 Pulse Oximetry 96 % Debbie Amador [facility] 06-15-2018 11:07-0400 Respiratory Rate 16 /min Debbie Amador [facility] 06-15-2018 10:19-0400 BMI (Body Mass Index) 55.51 kg/m2 [facility] 06-15-2018 10:19-0400 BP Diastolic 78 mm[Hg] [facility] 06-15-2018 10:19-0400 BP Systolic 136 mm[Hg] [facility] 06-15-2018 10:19-[address] [facility] 06-15-2018 10:19-0400 Pulse (Heart Rate) 74 /min [facility] 06-15-2018 10:19-[address] [facility] 06-04-2018 09:11-0400 BP Diastolic 72 mm[Hg] [facility] 06-04-2018 09:11-0400 BP Systolic 111 mm[Hg] [facility] 06-04-2018 09:11-0400 Height 180.3 [facility] 06-04-2018 09:11-0400 Pulse (Heart Rate) 75 /min [facility] 06-04-2018 09:11-0400 Pulse Oximetry 95 % [facility] 06-04-2018 09:11-0400 Respiratory Rate 12 /min [facility] 04-01-2017 09:22-0500 BMI (Body Mass Index) 53 kg/m2 [facility] Work Phone: 04-01-2017 09:22-0500 BP Diastolic 85 mm[Hg] [facility] Work Phone: 04-01-2017 09:22-0500 BP Systolic 138 mm[Hg] [facility]: 04-01-2017 09:22-0500 Height 180.3 cm Angelo Rios [facility] Work Phone: 04-01-2017 09:22-0500 Pulse (Heart Rate) 75 /[facility] 04-01-2017 09:22-0500 Pulse Oximetry 94 % Angelo Rios [facility] Work Phone: 04-01-2017 09:22-0500 Weight 172.37 kg Angelo Rios [facility] Work Phone: 11-25-2016 10:31-0400 BMI (Body Mass Index) 51.6 kg/m2 Angelo Rios [facility] Work Phone: 11-25-2016 10:31-0400 BP Diastolic 68 mm[Hg] Angelo Rios [facility] Work Phone: 11-25-2016 10:31-0400 BP Systolic 126 mm[Hg] Angelo Rios [facility] Work Phone: 11-25-2016 10:31-0400 Height 180.3 cm [facility]: 11-25-2016 10:31-0400 Pulse (Heart Rate) 87 /min [facility] Work Phone: 11-25-2016 10:31-0400 Pulse Oximetry 95 % Angelo Rios [facility] Work Phone: 11-25-2016 10:31-0400 Respiratory Rate 16 /min [facility] Work Phone: 11-25-2016 10:31-0400 Weight 167.83 kg [facility]: Encounters Encounter Date Encounter Type Care Provider Facility Start: 08-23-2024 End: 08-23-2024 ambulatory Jazz Stollmonica [employer] M[employer]INE OPERATOR Work Phone: [facility] Work Phone: Start: 08-23-2024 End: 08-23-2024 Patient encounter procedure Jazz Mosesjuanmonica [facility] Work Phone: Start: 06-28-2024 End: 06-28-2024 ambulatory [facility] Work Phone: Start: 06-28-2024 End: 06-28-2024 Patient encounter procedure [facility] Physician [facility] Work Phone: Start: 04-28-2024 End: 04-28-2024 ambulatory Jazz Mosesjuarez COMPOUND MACHINE OPERATOR Work Phone: [facility] Work Phone: Start: 04-28-2024 End: 04-28-2024 Patient encounter procedure Jazz Mosesjuarez FUNEZN Work Phone: [facility] Physician [facility] Work Phone: Start: 04-27-2024 Patient encounter procedure Jazz Mosesjuarez COMPOUND MACHINE OPERATOR Work Phone: [facility] Start: 03-30-2024 Patient encounter status Sarika Mosesjuarez COMPOUND MACHINE OPERATOR Work Phone: [facility] Start: 03-30-2024 End: 03-30-2024 ambulatory Jazz Mosesjuanreemafaraz COMPOUND MACHINE OPERATOR Work Phone: [facility] Work Phone: Start: 03-30-2024 End: 03-30-2024 Patient encounter procedure Jazz Mosesjuarez COMPOUND MACHINE OPERATOR Work Phone: [facility] Physician [facility] Work Phone: Start: 02-10-2024 End: 02-10-2024 ambulatory Jazz Hyde Facility:[facility] Start: 02-10-2024 End: 02-10-2024 Departed Referred Jazz Mary Ellen PEREZ Work Phone: [facility] [place] Work Phone: Start: 02-10-2024 End: 02-10-2024 Patient encounter procedure Jazz Mary Ellen PEREZ Work Phone: [facility] Physician [facility] Work Phone: Start: 12-26-2023 End: 12-26-2023 ambulatory [facility] Work Phone: Start: 12-26-2023 End: 12-26-2023 Patient encounter procedure [facility] Physician [facility] Work Phone: Start: 11-25-2023 End: 11-25-2023 ambulatory [facility] Work Phone: Start: 11-25-2023 End: 11-25-2023 Patient encounter procedure [facility] Physician [facility] Work Phone: Start: 08-18-2023 End: 08-18-2023 ambulatory [facility] Work Phone: Start: 08-18-2023 End: 08-18-2023 Patient encounter procedure [facility] Physician [facility] Work Phone: Start: 07-31-2023 Documentation procedure Laxmi Perez LPN [facility] Comment on above: Requesting Sleep Edmond dy Start: 12-23-2022 End: 12-24-2022 ambulatory Casey Morse Facility:[facility] Start: 12-23-2022 End: 12-23-2022 Patient encounter procedure Casey Morse III [facility] Start: 08-16-2022 End: 08-17-2022 ambulatory Franchesca Don Facility:[facility] Start: 08-16-2022 End: 08-16-2022 Patient encounter procedure Franchesca Don [facility] Start: 05-22-2022 End: 05-23-2022 ambulatory Jj C Link Facility:[facility] Start: 05-22-2022 End: 05-22-2022 Patient encounter procedure Jj Jay Link [facility] Start: 05-06-2022 End: 05-07-2022 ambulatory Jj C Link Facility:[facility] Start: 11-15-2021 End: 03-14-2022 Pre-admission assessment Hansa Eid [facility] Start: 10-03-2021 End: 10-03-2021 Patient encounter procedure Hansa Eid [facility] Start: 08-03-2021 End: 08-03-2021 Patient encounter procedure Hansa Eid [facility] Start: 07-03-2021 End: 07-28-2021 Pre-admission assessment Hansa Eid [facility] Start: 11-20-2020 Refill Angelo gonzalez MD Work Phone: [facility] Comment on above: Chronic obstructive pulmonary disease with acute exacerbation (HCC) Start: 08-18-2020 End: 08-18-2020 Refkassidy Orozco LPN [facility] Comment on above: Chronic obstructive pulmonary disease with acute exacerbation (HCC) (Primary Dx) Start: 06-16-2020 End: 06-16-2020 ambulatory NAGELO RIOS [facility] Start: 06-16-2020 End: 06-16-2020 Phys/qhp telephone evaluation 11-20 min Angelo Rios MD Work Phone: [facility] Comment on above: Centrilobular emphys karoline (HCC) (Primary Dx); Obstructive sleep apnea; Tobacco abuse disorder Start: 06-08-2020 ambulatory [facility] Facility:[facility] Start: 05-30-2020 ambulatory ANGELO Cisse [facility] Ambulatory Start: 05-18-2020 ambulatory SELF SELF Facility:[facility] Start: 05-18-2020 Patient encounter procedure SELF SELF Facility:[facility] Start: 05-10-2020 End: 05-10-2020 Orders Only Yandy Davonte Craft Work Phone: [facility] Start: 03-12-2020 End: 03-12-2020 Refill Angelo Rios Work Phone: [facility] Start: 02-16-2020 End: 02-16-2020 ambulatory [facility] Ambulatory Start: 01-19-2020 ambulatory ANGELO SwetaMary Anne inn[facility]ZAKIACon[facility] Ambulatory Start: 12-28-2019 End: 12-28-2019 Documentation procedure Kim Rust [facility] Comment on above: nebulizer Start: 12-01-2019 End: 12-01-2019 Documentation procedure Kim Rust LPN [facility] Comment on above: gena dimas Start: 11-30-2019 ambulatory [facility] Ambulatory Start: 10-21-2019 End: 10-21-2019 ambulatory [facility] Ambulatory Start: 10-10-2019 End: 10-10-2019 Patient encounter procedure MYAH VALLE [facility] Start: 10-10-2019 End: 10-10-2019 Emergency department patient visit [facility] Start: 10-09-2019 End: 10-10-2019 Emergency department patient visit Myah Valle Work Phone: [facility] Emergency Department Comment on above: COPD exacerbation (H CC) (Primary Dx); Chest pain, unspecified type Start: 03-11-2019 End: 03-11-2019 Documentation procedure Kim Rust [facility] Comment on above: bipap status Start: 02-26-2019 End: 02-26-2019 Documentation procedure Nga Serrano [facility] Start: 12-10-2018 End: 12-10-2018 Documentation procedure Kim Rust [facility] Comment on above: titration study ordlewis red Start: 12-10-2018 End: 12-10-2018 Office outpatient visit 25 minutes Angelo Rios Work Phone: [facility] Comment on above: Centrilobular emphys karoline (HCC) (Primary Dx); Obstructive sleep apnea; Cigarette Smoker Start: 07-03-2018 End: 07-03-2018 Documentation procedure Davonte Hines [facility] Comment on above: CPAP supplies Start: 06-15-2018 End: 06-15-2018 Emergency department patient visit BERNADINE [facility] Start: 06-15-2018 End: 06-15-2018 Emergency department patient visit Debbie Erwin Work Phone: [facility] Emergency Department Comment on above: Pain, dental (Primar y Dx) Start: 06-15-2018 End: 06-15-2018 Patient encounter procedure Franky Steward Work Phone: [facility] Comment on above: ERRONEOUS ENCOUNTER- -DISREGARD (Primary Dx) Start: 06-04-2018 End: 06-04-2018 Office outpatient visit 25 minutes Angelo Rios Work Phone: [facility] Comment on above: Centrilobular emphys karoline (HCC) (Primary Dx); Obstructive sleep apnea; Tobacco abuse disorder Start: 04-01-2017 Office/outpatient vi sit, est, level 4 Angelo Rios Work Phone: [facility] Start: 04-01-2017 End: 04-01-2017 Ambulatory Angelo Rios Work Phone: [facility] Start: 11-25-2016 Office/outpatient vi sit, est, level 5 Angelo Rios Work Phone: [facility] Start: 09-11-[address] [facility] Procedures Date Procedure Procedure Detail Performing Clinician Start: 02-10-2024 Aerobic microbial culture Jazz Mosesjuarez PEREZ Work Phone: Start: 02-10-2024 Anaerobic microbial culture Jazz Mosescresenciofaraz CHRIS Work Phone: Start: 02-10-2024 Gram stain microscopy aYzan oli Mosesjuanmonica CHRIS Work Phone: Start: 10-10-2019 Assay of troponin [...] 10-26-2023 Influenza vaccination Influenza Vaccine (Season Ended) [facility] Start: 10-25-2022 COVID-19 Vaccine ( season) COVID-19 Vaccine ( season) [facility] Start: 10-25-2020 Influenza vaccination Sequential Influenza Vaccine (#1) [facility] Start: 09-23-2020 Albumin DL <= 20 mg/L (U) [Mass/Vol] [facility]rine [facility] Start: 09-23-2020 Microalbumin measurement, urine, quantitative Urine Microalbumin [facility] Start: 09-23-2020 Urine screening for protein Urine Microalbumin [facility] Start: 09-18-2020 End: 09-18-2020 Patient encounter procedure 09/18/2020 Office Visit Pulmonology Al Solomon, PRODUCTION PAINTER [address] [place] [address] [facility] Start: 08-15-2020 Hemoglobin A1c measurement A1C [facility] Start: 06-16-2020 End: 06-16-2020 Office Visit 06/16/2020 Office Visit Pulmonology Angelo Rios MD [address] [place] [address] [facility] Start: 04-11-2020 HbA1c (Bld) [Mass fraction] A1C [facility] Start: 04-11-2020 Hemoglobin A1c measurement A1C [facility] Start: 02-16-2020 End: 02-16-2020 Telemedicine 02/16/2020 Telemedicine Pulmonology Al Solomon PRODUCTION PAINTER [address] [place] [address] [phone] [facility] Start: 10-26-2019 Influenza vaccination Sequential Influenza Vaccine (#1) [facility] Start: 10-26-2019 Influenza vaccination given Sequential Influenza Vaccine (#1) [facility] Start: 10-21-2019 End: 10-21-2019 Office Visit 10/21/2019 Office Visit Pulmonology Al Solomon, GAYATRI [address] [place] [address] [facility] Start: 10-12-2019 Administration of herpes zoster vaccine Zoster Vaccines (1 of 2) [facility] Start: 10-12-2019 Screening for malignant neoplasm of colon [facility] Start: 06-17-2019 End: 06-17-2019 Office Visit 06/17/2019 Office Visit Pulmonology Angelo Rios MD [address] [place] [address] [facility] Start: 12-10-2018 End: 12-10-2018 Office Visit 12/10/2018 Office Visit Pulmonology Angelo Rios MD [address] [place] [address] [phone] [facility] Start: 10-25-2018 Influenza vaccination given [facility] Start: 08-26-2018 Glaucoma screening Diabetic Eye Exam [facility] Start: 08-26-2018 Ophthalmic examination and evaluation Ophthalmology Exam [facility] Start: 06-30-2018 End: 06-30-2018 Treatment 06/30/2018 Treatment Cardiac Rehabilitation Felisha Cisneros MD [address] [place] [address] [phone] [facility] Start: 06-15-2018 End: 06-15-2018 Office Visit 06/15/2018 Office Visit Cardiology Franky Steward MD [address] [facility] [address] [place] [address] [phone] [facility] Start: 10-25-2017 Influenza vaccination given SEQUENTIAL INFLUENZA VACCINE (#1) [facility] Start: 08-06-2017 Ambulatory 08/06/2017 Office Visit Pulmonology Angelo Rios MD [address] [place] [address] [phone] [facility] Start: 04-01-2017 Ambulatory 04/01/2017 Office Visit Pulmonology Angelo Rios MD [address] [place] [address] [phone] [facility] Start: 09-01-2017 Influenza vaccination SEQUENTIAL INFLUENZA VACCINE (#1) [facility] Work Phone: Start: 11-17-2014 Low dose computed tomography of chest without contrast Low-dose CT Lung Cancer Screen [facility] Start: 11-17-2014 Screening for malignant neoplasm of lung Low-dose CT Lung Cancer Screen [facility] Start: 10-12-1987 Hepatitis C antibody, confirmatory test Hepatitis C Screening [facility] Start: 10-12-1987 Hepatitis C screening Hepatitis C Screening [facility] Start: 1985 COVID-19 Vaccine (1 of 2) COVID-19 Vaccine (1 of 2) [facility] Start: 1984 HIV screening HIV Screening [facility] Start: 1981 Adolescent depression screening assessment Depression Screening (PHQ9) [facility] Start: 1981 Depression screening using PHQ-9 (Patient Health Questionnaire 9) score [facility] Start: 10-12-1979 Diabetic foot examination [facility] Start: 10-12-1979 Microalbumin measurement, urine, quantitative Urine Microalbumin [facility] Start: 10-12-1979 Ophthalmic examination and evaluation Ophthalmology Exam [facility] Start: 10-12-1975 Pneumococcal Vaccine: Ped or At-Risk (1 of 2 - PCV) Pneumococcal Vaccine: Ped or At-Risk (1 of 2 - PCV) [facility] Start: 10-12-1975 Pneumococcal Vaccine: Ped or At-Risk (1 of 2 - PPSV23) Pneumococcal Vaccine: Ped or At-Risk (1 of 2 - PPSV23) [facility] Start: 1972 History and physical examination, annual for health maintenance Wellness Visit [facility] Start: 1969 Prostate specific antigen measurement PSA Level [facility] Start: 1969 Screening for malignant neoplasm of colon [facility] Start: 1969 Tetanus vaccination [facility] End: 11-25-2017 Complete PFT Complete PFT Routine Centrilobular emphysema (HCC) 1 Occurrences starting 11/25/2016 until 11/25/2017 [facility] Work Phone: Comprehensive metabo lic 2000 panel - Serum or Plasma [facility] Patient Education Low back pain in adults [facility] Work Phone: XR Chest 1 View XR Chest 1 View Imaging KEITH 10/09/2019 11:00 PM EDT [facility] Immunizations Immunization Date Immunization Notes Care Provider Marv martini 12-12-2019 influenza virus vacc ine, unspecified formulation Laxmiantonio Perez CASTING ASSISTANT [facility] Payers Date Payer Category Payer Self-pay 2018 Medicaid [id number] 2018 Medicaid MEDICAID [facility] [id number] 2018-Present [phone] [address] [place] [address] [id number] 2018 Medicare MEDICARE MEDICAR E PART A & B xxxxxxxxxxx 2018-Present ID xxxxxxxxxxx [id number] 2018 Medicare [id number] 2018 Medicare [id number] 2018 Medicare MEDICARE MEDICAR E PART A & B [id number] 2018-Present [phone] CGS [id number] PART A CLAIMS [address] [address] [place] [address] [id number] 2013 Medicaid [id number] 2013 Medicaid [id number] 1969 Unknown [id number] [id number] 1969 Unknown [id number] 2.16.840.1.303608.3.579.2.902 1969 Unknown [id number] 2.16.840.1.512529.3.579.2.902 1969 Unknown [id number] 2.16.840.1.843879.3.579.2.594 1969 Unknown [id number] 2.16.840.1.121322.3.579.2.903 1969 Unknown [id number] 2.16.840.1.049061.3.579.2.903 1969 Unknown [id number] 2.16.840.1.804162.3.579.2.903 1969 Unknown [id number] 2.16.840.1.286138.3.579.2.903 1969 Unknown [id number] 2.16.840.1.191689.3.579.2.903 1969 Unknown [id number] 2.16.840.1.387772.3.579.2.903 1969 Unknown [id number] 2.16.840.1.523270.3.579.2.594 1969 Unknown [id number] 2.16.840.1.378214.3.579.2.727 1969 Unknown [id number] 2.16.840.1.313821.3.579.2.727 1969 Unknown [id number] 2.16.840.1.965354.3.579.2.727 1969 Unknown [id number] 2.16.840.1.868491.3.579.2.727 Medicaid [id number] Medicare Medicare [id number] Unknown [id number] [id number] Social History Date Type Detail Facility Start: 11-25-2016 End: 08-18-2023 Tobacco smoking status NHIS Current every day smoker [facility] Start: 1970 Sex Assigned At Not on file [facility] Work Phone: Start: 06-15-2018 End: 06-16-2020 Cigarettes smoked current (pack per day) - Reported [facility] Start: 12-10-2018 End: 06-16-2020 Alcohol intake Current non-drinker of alcohol (finding) [facility] Start: 10-10-2019 End: 06-16-2020 Tobacco use and exposure Never used [facility] Exposure to SARS-CoV -2 (event) Yes [facility] Exposure to SARS-CoV -2 (event) Unable to assess [facility] Start: 06-16-2020 Sex Assigned At Male [facility] Start: 08-03-2021 Tobacco smoking status Heavy tobacco smoker (finding) [facility] Tobacco smoking status Never [facility] History of tobacco use Cigarette Smoker [facility] Start: 01-23-2018 Gender identity Identifies as male gender (finding) [facility] Start: 01-23-2018 Sexual orientation Heterosexual (finding) [facility] Start: 08-18-2023 End: 08-18-2023 Tobacco smoking status NHIS Smoker (finding) [facility] Start: 1970 Sex Assigned At Male [facility] Start: 03-30-2024 End: 06-28-2024 Sex Male (finding) [facility] Medical Equipment Procedure Code Equipment Code Equipment Origin al Text Equipment Identifier Dates USE 1 NEEDLE ONC E DAILY [id number] Start: 01-17-2020 daily as directed . [id number] Start : 12-27-2019 Blood Sugar Diagnostic (Accutrend Glucose Test Strips) strip Start: 02-13-2024 Lancets (Accu-Ch ek Softclix Lancets) misc Start: 03-30-2024 Pen Needle, Diab etic (Sure-Fine Pen [place]) 31 gauge x 5/16 needle Start: 02-16-2024 Blood Sugar Diagnostic (Accutrend Glucose Test Strips) strip Start: 02-11-2024 End: 02-13-2024 Lancets (Accu-Ch ek Softclix Lancets) misc Start: 02-12-2024 End: 02-13-2024 Lancets (Accu-Ch ek Softclix Lancets) misc Start: 02-13-2024 End: 03-30-2024 Blood Sugar Diagnostic (Accutrend Glucose Test Strips) strip Start: 02-13-2024 Lancets (Accu-Ch ek Softclix Lancets) misc Start: 03-30-2024 Pen Needle, Diab etic (Sure-Fine Pen [place]) 31 gauge x 5/16 needle Start: 02-16-2024 Blood Sugar Diagnostic (Accutrend Glucose Test Strips) strip Start: 02-11-2024 End: 02-13-2024 Lancets (Accu-Ch ek Softclix Lancets) misc Start: 02-12-2024 End: 02-13-2024 Lancets (Accu-Ch ek Softclix Lancets) misc Start: 02-13-2024 End: 03-30-2024 Blood Sugar Diagnostic (Accutrend Glucose Test Strips) strip Start: 02-13-2024 Lancets (Accu-Ch ek Softclix Lancets) misc Start: 03-30-2024 Pen Needle, Diab etic (Sure-Fine Pen [place]) 31 gauge x 5/16 needle Start: 02-16-2024 Blood Sugar Diagnostic (Accutrend Glucose Test Strips) strip Start: 02-11-2024 End: 02-13-2024 Lancets (Accu-Ch ek Softclix Lancets) misc Start: 02-12-2024 End: 02-13-2024 Lancets (Accu-Ch ek Softclix Lancets) misc Start: 02-13-2024 End: 03-30-2024 Blood Sugar Diagnostic (Accutrend Glucose Test Strips) strip Start: 02-13-2024 Lancets (Accu-Ch ek Softclix Lancets) misc Start: 03-30-2024 Pen Needle, Diab etic (Sure-Fine Pen [place]) 31 gauge x 5/16 needle Start: 02-16-2024 Blood Sugar Diagnostic (Accutrend Glucose Test Strips) strip Start: 02-11-2024 End: 02-13-2024 Lancets (Accu-Ch ek Softclix Lancets) misc Start: 02-12-2024 End: 02-13-2024 Lancets (Accu-Ch ek Softclix Lancets) [facility] Start: 02-13-2024 End: 03-30-2024 Clinical Notes 12-01-2019 to 06-28-2024 Note Date & Type Note Facility 06-28-2024 Evaluation note Diagnosis Onset Date Resolution Chronic obstructive pulmonary disease (COPD) acute June 8:23am Current smoker acute June 28, 2 025 8:23am Foot ulcer due to secondary DM acute June 28, 2024 8: 23am Hyperlipemia acute June 28 8:23am Hypertension acute June 28 8:23am Screening for prostate cancer acute June 28, 2024 8: 23am Sleep apnea acute June 28, 2024 8:23am Type 2 diabetes mellitus acute June 28, 2024 8:23am Venous insufficiency acute June 28, 2024 8:23am Chronic obstructive pulmonary disease (COPD) acute August 232024 3:21pm Left leg cellulitis acute August 23, 2024 3:21pm Venous insufficiency (chronic) (peripheral) acute July 3:21pm Wound of left lower extremity acute August 23, 2024 3:21pm [facility] Work Phone: 1(618) 179-539502-04-2025 Evaluation note* Diagnosis Onset Date Resolution Status [...] acute April 28, 2024 1:03pm Chronic obstructive pulmonar y disease (COPD) acute June 28, 2024 8: 23am Current smoker acute June 28, 2 025 8:23am Hyperlipemia acute June 28 8:23am Hypertension acute June 28 8:23am Screening for prostate cancer acute June 28, 2024 8:23am Sleep apnea acute June 28, 2024 8:23am Type 2 diabetes mellitus acute June 28, 2024 8:23am Venous insufficiency acute June 28, 2024 8:23am [facility] Work Phone: 1(991) 285-126312-17-2024 Evaluation note* Diagnosis Onset Date Resolution Status [...] (chroni c) (peripheral) acute March 30 8:19am [facility] Work Phone: 1(180) 415-412512-17-2024 Evaluation note* Diagnosis Onset Date Resolution Status [...] Dental abscess acute April 28, 2024 1:03pm [facility] Work Phone: 1(112) 215-445606-06-2024 History of Present illness Narrative* Laxmi Perez LPN - 07/31/2023 9:06 AM EDT Authorization for IAN fax rec'v from [facility] requesting a copy of sleep study resultwith patient signature. SS result faxed at [phone]. documented in this [id number] Hospital Discharge instructions Follow Up Care 07/27/2021 11:50:22 With:Ragini SALINAS, Hansa Harvey, PUL, SHAJI Address: [address] [place] [address] Pulmonary Clinic (Heart & Vascular) [place] [id number]- When: Unknown Comments:after his testing is completed [facility]06-25-2021 Miscellaneous Notes* Telephone Encounter - Marianela [...] to return call regarding fax received from [facility] for a refill on his Prednisone taper. documented in this [id number] History of Present illness Narrative* Angelo Rios MD - 06/16/2020 10:12 AM EDT Telephone Visit Via Phone Call Patient ID: Ector Rutledge is a 49 y.o. male on the phone for COPD Patient phone : [phone] This visit has been fully reviewed with the patient and verbal consent has been obtained. Dear Dr. Bernadine Verma MD, I had the pleasure of seeing our mutual patient, Ector Rutledge, who returns to see me in my clinic at [facility]. IMPRESSION/RECOMMENDATIONS 1. Mr. Rutledge is [...] and has residual AHI of 1.2. His [place] Sleepiness Scale is 6/24 and overall he [...] He uses a full-face mask for interface. [place] Sleepiness Scale is 9/24. He continues to [...] history of COPD (chronic obstructive pulmonary disease) ([facility]), Diabetes mellitus ([facility]), GERD (gastroesophageal reflux disease), and [...] normal EF This note was dictated using [employer]/ [employer] and may contain errors that were not corrected during editing. Provider location: [facility] [address] [facility] [address] Patient location: [address] [place] [address] I have spent 11-20 minutes with the [...] Sincerely, Angelo Rios MD documented in this [id number] History of Present illness Narrative* Kim Rust LPN - 12/01/2019 1:21 PM EDT Insurance denied the tudorza until patient tries atrovent. Informed patient Dr. Rios placed an order for the atrovent today. Asked patient to try it and let us know how it is working for him. He verbalizes understanding documented in this encounterOhioHealthEvaluation + Plan note Future Appointments Appointment Date:08/03/2021 10:15:00 AM Scheduled Provider:Hansa Eid MD Location:FT.Pulmonary Clinic [facility] Future Appointments Appointment Date:08/20/2021 07:30:00 AM Scheduled Provider: Location:.CARDIO Appointment Type:PUL Pulmonary Function Test (FT) Appointment Date:08/20/2021 08:30:00 AM Scheduled Provider: Location:.CARDIO Appointment Type:PUL Six Minute Walk [facility] Diagnosis Centrilobular emphysema (HCC)- Primary Obstructive sleep apnea Obstructive sleep apnea (adult) (pediatric) Tobacco abuse disorder [facility] Diagnosis Chronic obstructive pulmonary disease with acute exacerbation (HCC)- Primary [facility] Diagnosis Chronic obstructive pulmonary disease with acute exacerbation (HCC) [facility]* Diagnosis Onset Date Resolution Status Chronic obstructive pulmonary disease (COPD) acute Current smoker acute Hyperlipemia acute Type 2 diabetes mellitus acu [facility] Work Phone: Evaluation noteNo assessment information available [facility] Work Phone: Evaluation note* Diagnosis Onset Date Resolution Status Chronic obstructive pulmonary disease (COPD) acute COPD exacerbation acute Current smoker acute Hypertension acute Type 2 diabetes mellitus acu [facility] Work Phone: Hospital course Narrative No data available for this section [facility] No data available for this section [facility] note No data available for this section [facility] HospitalReason for referral (narrative)No reason for referral information available[facility] Work Phone: Assessments Diagnosis Centrilobular emphysema (HCC ) - [...] Documents on File Type Date Recorded Patient Independent Driver Expl anation Advance Directives and Livin g Will 06/15/2018 11:51 AM Advance Directives and Livin g Will 06/15/2018 8:23 AM Documents on File Type Date Recorded Patient Independent Driver Expl anation Advance Directives and Livin g [...] Documents on File Type Date Recorded Patient Independent Driver Expl anation Advance Directives and Livin g [...] PM EDT CPAP supply order faxed to [facility], per patient request. F: [phone] Confirmation received. documented in this encounter* Angelo Rios MD - 12/10/2018 10:[address] Bernadine Verma MD, I had the pleasure of seeing our mutual patient, Ector Rutledge, who returns to see me in my clinic at [facility]. IMPRESSION/RECOMMENDATIONS 1. Mr. Rutledge is [...] He uses a full-face mask for interface. [place] Sleepiness Scale is 9/24. He continues to [...] history of COPD (chronic obstructive pulmonary disease) ([facility]), Diabetes mellitus ([facility]), GERD (gastroesophageal reflux disease), and [...] normal EF This note was dictated using [employer]/ Dictation Software and may contain errors that were not corrected during editing. documented in this encounter* Kim Rust LPN - 12/10/2018 1:57 PM EDT Order faxed to [facility] for titration study documented in this encounter* Kim Rust LPN - 03/11/2019 8:39 AM EST Received fax from Roger from [facility] that he spoke with patient on 03/03/19 [...] to see me in my clinic at [facility]. IMPRESSION/RECOMMENDATIONS 1. Mr. Rutledge is [...] and uses a full-face mask for interface. [place] Sleepiness Scale is 8/24. He continues to [...] history of COPD (chronic obstructive pulmonary disease) ([facility]), Diabetes mellitus ([facility]), GERD (gastroesophageal reflux disease), and [...] normal EF This note was dictated using [employer]/ [email or web address] Software and may contain errors that were not corrected during editing. in this encounter* Kim Rust LPN - 12/28/2019 9:49 AM EST Patient left a vm that he dropped his nebulizer machine and it broke and he would like a rx for a new one. [facility] Sheila at [facility] and she will call patient. She states she can exchange it. documented in this encounter Discharge Instructions * Attachments The following attachments cannot be sent through Care Everywhere. * Chest Pain (Urdu) * Chronic Health Conditions: Conserving Energy (Urdu) * COPD: Asthma (Urdu) documented in this encounter* Instructions* Debbie Erwin MD - 06/15/2018 Dental Clinics We recommend that you follow-up with the dentist as soon as possible (KEITH). If you do not have one, here are some options: [facility] [phone] [facility] [phone] [facility] (Dental Clinic) [phone] [address] [facility] [address] By appointment only. $40 standard fee - adjustable per household income [facility] [phone] [address] [facility] [address] [facility] [phone] [address] [facility] [phone] [place], [place] [address] [facility] [phone] [address] [facility] ALL Insurances [facility] [phone] [address] [place] [address] [facility] [phone] [address] [place] [address] [facility] [phone] [place] [address] [facility] Family [facility] [phone] [facility] [phone] Will take walk-in patients during certain hours of the day. [phone] Will take walk-in patients during certain hours of the day. * Attachments The following attachments cannot be sent through Care Everywhere. * Periodontal Conditions (Urdu) * Smoking Cessation: Health Benefits: General Info (Urdu) documented in this encounter Reason for Referral Status Reason Specialty Diagnoses / Procedures Referre d By Contact Referred To Contact Closed Angelo Rios MD [address] [place] [address] Chief Complaint and Reason for Visit Chief [...] Venous insufficiency June 28, 2024 8:23a m Chief Complaint Admit Date 3 month f/u [...] 2024 8:23am Screening for prostate cancer June 28 025 8:23am Sleep apnea June 28, 2024 8:23am Type 2 diabetes mellitus June 28, 2024 8 :23am Venous insufficiency June 28, 2024 8:23a m Chronic obstructive pulmonary disease (C OPD) August 23, 2024 3:21pm Left leg cellulitis August 23, 2024 3:21 pm Venous insufficiency (chronic) (peripher al) August 23, 2024 3:21pm Wound of left lower extremity August 23, 2024 3:21pm Additional Source Comments (unrecognized sect ion and content) No Status Records FoundNo Status Records FoundNo Status Records FoundNo Status Records FoundNo Status Records FoundNo Status Records FoundNo Status Records FoundNo Status Records Found INFORMATION SOURCE (unrecogn ized section and content) DATE CREATED AUTHOR 08/20/2017 [facility] DATE CREATED AUTHOR AUTHOR'S ORGANIZ ATION 06/15/2018 [facility] DATE CREATED AUTHOR AUTHOR'S ORGANIZ ATION 10/21/2019 [facility] DATE CREATED AUTHOR AUTHOR'S ORGANIZ ATION 05/19/2020 [facility] DATE CREATED AUTHOR AUTHOR'S ORGANIZ ATION 06/18/2020 [facility] DATE CREATED AUTHOR AUTHOR'S ORGANIZ ATION 04/13/2021 [facility] DATE CREATED AUTHOR AUTHOR'S ORGANIZ ATION 03/30/2023 Jeremy Chapman [facility] DATE CREATED AUTHOR AUTHOR'S ORGANIZ ATION 02/17/2024 [facility] Reason for Visit (unrecogniz ed [...] secti on and content) Pt sent to [facility], room 641 B with all their belongings [...] and depending on findings possible transfer to [facility] later. At first he does not wish [...] file Gets together: Not on file Attends nondenominational service: Not on file Active member of club or organization: Not on file Attends meetings of clubs or organizations: Not on file Relationship status: Not on file Other Topics Concern Not on file Social History Narrative Not on file Social history reviewed. Allergies: No Known Allergies Medications: MatyEctor Home Medication Instructions Prior to Surgery NEISHA:[id number] Printed on:10/10/19 0320 Medication Information Take last [...] placement, I felt he was appropriate for [facility]. Speaking to transfer center they attempted to get him to [place] short stay unit. Speak with the provider at the short stay we both do not feel he is appropriate for there. Therefore he was then accepted back to [facility] for proper placement, safe observation admission and [...] View Preliminary Result No acute cardiopulmonary disease. Tech Cocktail/[employer] Workstation ID: [id number] MEDICATIONS ORDERED/GIVEN (if any, during ED visit): Medications ipratropium-albuteroL (DUO-NEB) 0.5-2.5 mg/3 ml nebulizer solution 3 mL (3 mL Inhalation Given 10/09/198) sodium chloride (PF) (NS) flush 5 mL (has no administration in time range) And sodium chloride 0.9% (NS) (has no administration in time range) methylPREDNISolone sod suc(PF) (SOLU-medrol) Injection 125 mg (125 mg Intravenous Given 10/09/192258) aspirin chewable tablet 324 mg (324 mg Oral Given 10/09/192258) The accredited legal secretary of Health and Human Services and Chris Street, governor of the [employer], have declared a state of public health [...] in the day. documented in this encounter [facility] ED Attending Note: NAME: Ector Rutledge 47 y.o. CSN: [id number] PCP: Bernadine Verma MD History: Chief Complaint: [...] side. 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 [...] I consider the discharge disposition reasonable. Ector A Maty (or their surrogate) and I have discussed [...] to home MD Debbie Perez MD 06/15/18 8084 Patient reports tooth pain that started on [...] LAFB QRS axis: left T Inversion: aVL HI Interval: 168 QRS Interval: 88 QT Interval: 433 Clinical impression: non-specific ECG documented in this encounter Care Teams (unrecognized sec tion and content) Vegetable Inspector Relationship Specialty Start Date End Date Bernadine Verma MD [address] [place] [address] PCP - General Internal Medicine 06/17/14 Al Solomon, PRODUCTION PAINTER [address] [place] [address] Nurse Practitioner Pulmonology 10/21/19 Vegetable Inspector Relationship Specialty Start Date End Date Bernadine Verma MD PCP - General Internal Medicine 06/17/14 Al Solomon PRODUCTION PAINTER [address] [place] [address] Nurse Practitioner Pulmonology 10/21/19 Team Status: Active Member Role Status Dates Kiki Childress DO Primary Care Provider Active Team Status: Inactive Member Role Status Dates Kiki Childress DO Primary Care Provider Active Start: August 18, 2023 End: August 18, 2023 Jazz Hyde APRN SUPERVISOR SHIPPING ROOM-C Attending Provider Act prashant Start: August 18, 2023 End: August 18, 2023 Team Status: Inactive Member Role Status Dates Kiki Childress DO Primary Care Provider Active Start: November 25, 2023 End: November 25, 2023 Jazz Hyde APRN SUPERVISOR SHIPPING ROOM-C Attending Provider Act prashant Start: November 25, 2023 End: November 25, 2023 Team Status: Inactive Member Role Status Dates Kiki Childress DO Primary Care Provider Active Start: December 26, 2023 End: December 26, 2023 Jazz Hyde APRN SUPERVISOR SHIPPING ROOM-C Attending Provider Active Start: December 26, 2023 End: December 26, 2023 Team Status: Active Member Role Status Dates Jazz Hyde APRN SUPERVISOR SHIPPING ROOM-C Primary Care Provider Active Team Status: Inactive Member Role Status Dates Jazz Hyde APRN SUPERVISOR SHIPPING ROOM-C Primary Care Provider, Attending Provider Active Start: February 10, 2024 End: February 10, 2024 Team Status: Inactive Member Role Status Dates Jazz Hyde APRN SUPERVISOR SHIPPING ROOM-C Attending Provider Act prashant Start: February 10, 2024 End: February 10, 2024 Team Status: Inactive Member Role Status Dates Jazz Hyde APRN SUPERVISOR SHIPPING ROOM-C Primary Care Provider, Attending Provider Active Start: March 30, 2024 End: March 30, 2024 Team Status: Inactive Member Role Status Dates Jazz Hyde APRN SUPERVISOR SHIPPING ROOM-C Primary Care Provider, Attending Provider Active Start: April 28, 2024 End: April 28, 2024 Team Status: Inactive Member Role Status Dates Jazz Hyde APRN SUPERVISOR SHIPPING ROOM-C Primary Care Provider, Attending Provider Active Start: June 28, 2024 End: June 28, 2024 Team Status: Inactive Member Role Status Dates Jazz Hyde APRN SUPERVISOR SHIPPING ROOM-C Primary Care Provider Active Start: June 28, 2024 End: June 28, 2024 Jazz Hyde APRN SUPERVISOR SHIPPING ROOM-C Attending Provider Act prashant Start: June 28, 2024 End: June 28, 2024 Team Status: Inactive Member Role Status Dates Jazz Hyde APRN SUPERVISOR SHIPPING ROOM-C Primary Care Provider Active Start: August 23, 2024 End: August 23, 2024 Jazz Hyde APRN SUPERVISOR SHIPPING ROOM-C Attending Provider Act prashant Start: August 23, 2024 End: August 23, 2024 Goals (unrecognized section and content) Goals [...] BE BASED ON THE PRIMARY CLINICAL RECORDS. [facility] [employer] provides no warranty or guarantee of the accuracy or completeness of information in this document.
--- OUTSIDE RECORDS SUMMARY | 2024-12-06 20:02 | XMS_ITS | Clinical Summary ---
Author Organization [facility] Address [address] [place] [address] Care Team Providers Care Emergency Medicine Specialist Name Role Phone Pato Denson MD Primary Care Provider [phone] Antoinette Jeong MECHANICAL ENGINEERING TECHNOLOGIST Unavailable [phone] Allergies No known active allergies Medications metFORMIN [...] of 2) 10/12/2019 COVID-19 Vaccine (3 - 2024- season) 2024, 05/18/2020 Influenza Vaccine (#1) 2024 0, 12/04/2018, 11/14/2016 Insurance MEDICAID [place] MEDICARE PART A & B Member Subscriber Plan / Payer (Ef fective 2018-Present) Name:Ector Rutledge Member ID:[id number] Relation to Subscriber:Self Name:Ector Rutledge Subscriber ID:[id number] Payer ID:Not on file Group ID:Not on file Type:Not on file Address: [facility] [address] PART A CLAIMS [address] [address] [place] [address] Advance Directives For more information, please contact: [phone] * Full Code (Latest Code Status on File) Date Activated Date Inactivated Comments 10/10/2019 4:19 AM 10/10/2019 4:28 PM Care Teams Emergency Medicine Specialist Relationship Specialty Start Date End Date Pato Denson MD PCP - General Internal Medicine 06/17/14 Antoinette Jeong, MECHANICAL ENGINEERING TECHNOLOGIST [address] [place] [address] Nurse Practitioner Pulmonology 10/21/19
--- OUTSIDE RECORDS SUMMARY | 2024-12-06 20:02 | XMS_ITS | CCD ---
Author Organization [facility] CliniSyri Care Team Providers Care Lot Attendant Name Role Phone Verma, Bernadine Unavailable PALMER, DREMA DAVONTE Unavailable Unavailab le PALMER, DREMA DAVONTE Unavailable Unavailab le VERMA, BERNADINE Unavailable Unavailable Verma, Bernadine Primary Care Provider [phone] VERMA, BERNADINE Primary Care Unavailable DEBBIE ERWIN Attending Unavailabl e Verma, Bernadine Primary Care Provider [phone] Angelo Rios Unavailable [phone] VERMA, BERNADINE Primary Care Unavailable MYAH VALLE Attending Unav ailable MYAH VALLE Admitting Unav ailable MYAH VALLE Referring Unav ailable VERMA, BERNADINE Primary Care Unavailable CECI GTZ Admitting Unavailable QUIN REYNA Attending Unavaila ble Verma, Bernadine Primary Care Provider Al Solomon Unavailable SELF, SELF Referring Unavailable [...] SALINAS, [facility] Primary Care Provider [phone] Kristina Solomon CNPy G Unavailable Bayron SALINAS, [facility] Primary Care Provider Al Solomon CNP G Unavailable [phone] Jean-Paul MENDIETA Al G Unavailable [phone] Bayron SALINAS, [facility] Primary [facility] Provider Al Solomon CNP G Unavailable SELF, SELF Referring Unavailable DORA VILLAGOMEZ Attending Unavailable BAYRON [facility] Primary Care Unavailable DORA VILLAGOMEZ Referring Unavailable KIKI CHILDRESS Primary Care Physician [phone] Jj Stevens Primary Care Physician Jj Stevens Admitting Unavailable Link, Jj Jay Attending Unavailable Link, Jj Jay Admitting Unavailable Link, Jj Jay Attending Unavailable Franchesca Don Admitting Unavailable Franchesca Don Attending Unavailable Casey Morse Attending Unavailable Casey Morse Admitting Unavailable Bayron SALINAS, [facility] Primary [facility] Provider Jean-Paul GAYATRIAl G Unavailable [phone] Jazz Hyde Attending Unavailable Jazz Hyde Admitting Unavailable Jazz Hyde APRN Attending Provider Jazz Hyde APRN Attending Provider Jazz Hyde APRN Primary Care Provider Jazz Hyde APRN Attending Provider Jazz Hyde APRN Primary Care Provider Jazz Hyde APRN Attending Provider [phone] Medications Current Medications Medication Drug Class(es) Dates [...] EVERY 12 HOURS 1 each 08/09/2016 Active [id number] 200 actuat albuterol 0.09 mg/actuat metered dose [...] . 1 Inhaler 11 06/04/2018 Active Start: 04-01-2017 End: 04-01-2017 albuterol [...] sources) HMG-CoA Reductase Inhibitor Start: 08-18-2023 End: 12-02-2024 take 1 tablet by mouth once daily Atorvastatin 20 mg tablet Active 20 MG PO Daily December 02, 2024 9:20am Complies with drug therapy Start: 03-24-2017 atorvastatin ( LIPITOR) 20 MG tablet azithromycin 250 mg oral tablet (2 sources) Macrolide Antimicrobial Start: 11-24-2019 azithromycin (Zithromax) 250 MG tablet Take 2 pills on day 1, and then 1 pill a day for 4 days. . 6 tablet 0 11/24/2019 Active Blood-Glucose Meter (Accu-Chek Guide Glucose Meter) misc (5 sources) Start: 02-11-2024 Blood-Glucose Meter (Accu-Chek Guide Glucose Meter) misc Active 0 .Route 1 February 11, 2024 1:00am As directed Start: 02-11-2024 Blood-Glucose Meter (Accu-Chek Guide Glucose Meter) misc Active 0 .Route February 11, 2024 12:00am As directed Pqpdgpggci-Zzulvvqx-Lrfxwuuf ol (10 sources) Corticosteroid, beta2-Adrenergic Agonist Start: 08-25-2023 Qeldgokqxh-Tdzibacf-Tqykgukd ol (Breztri Aerosphere) 160-9-4.8 mcg/actuation HFA aerosol inhaler Active 2 INH INHALATION Twice daily 5.9 August 25, 2023 9:28am Complies with drug therapy Start: 08-18-2023 End: 08-25-2023 Qfuidqhxkl-Dbarquxu-Autauvro ol (Breztri Aerosphere) 160-9-4.8 mcg/actuation HFA aerosol inhaler Discontinued 2 INH INHALATION Twice daily August 18, 2023 12:00am August 25, 2023 9:29am Ncpuadbgqe-Wfxltxob-Royfcxxg ol (Breztri Aerosphere) 160-9-4.8 mcg/actuation HFA aerosol inhaler (5 sources) Start: 08-25-2023 Bnnajuqers-Pqnxxtgl-Jptmddjv ol (Breztri Aerosphere) 160-9-4.8 mcg/actuation HFA aerosol [...] tablet (20 sources) Sulfonylurea Start: 08-18-2023 End: 2024 take 1 tablet by mouth twice daily Glipizide 10 mg tablet Active 10 MG PO Twice daily 2024 7:24am Complies with drug therapy take 1 tablet by avlaro th twice daily before mealtime glipiZIDE (GLUCOTROL) 5 MG tablet Take 5 mg by mouth 2 (two) times a day before meals . 0 Active 12 hr guaiFENesin 1200 mg extended release oral tablet (2 sources) Start: 08-23-2024 take 1 tablet by mouth once daily at bedtime, then take 1 tablet by mouth every twelve hours Guaifenesin (Mucus Relief Er) 1,200 mg tablet extended release 12hr Active 1200 MG PO Daily at bedtime August 23, 2024 12:00am Complies with drug therapy ipratropium bromide 0.021 mg/actuat metered dose nasal spray (20 sources) Anticholinergic Start: 09-27-2024 take 2 spray(s) nasal route twice daily Ipratropium Wells 21 mcg (0.03 %) spray,non-aerosol Active 0 .ROUTE .COMPLEX September 27, 2024 8:06am USE 2 SPRAYS IN EACH NOSTRIL TWICE A DAY Complies with drug therapy Start: 03-30-2024 End: 09-27-2024 take 1 spray(s) nasal route twice daily Ipratropium Wells 21 mcg (0.03 %) spray,non-aerosol Discontinued 2 SPRAY INTRANASAL Twice daily June 28, 2024 7:53am September 27, 2024 8:06am administer into each nostril Start: 11-04-2023 End: 11-11-2023 take 1 mL by inhalation every six hours as needed for wheezing Ipratropium Wells 0.02 % solution Discontinued 3 ML INHALATION Every 6 hours as needed for shortness of breath or wheezing November 04, 2023 11:35am November 11, 2023 4:41pm Start: 11-04-2023 End: 11-11-2023 take 1 mL by inhalation every six hours Ipratropium Wells Discontinued 3 ML INHALATION Every 6 hours 150 November 04, 2023 11:35am November 11, 2023 4:41pm Start: 08-18-2023 End: 08-25-2023 Ipratropium Wells 21 mcg ( 0.03 %) spray,non-aerosol Discontinued [...] Active isopropyl alcohol 0.7 ml/ml medicated pad (16 sources) Start: 02-12-2024 End: 03-30-2024 Alcohol Swabs (Bd Alcohol Swabs) pads, medicated Active 0 TOPICAL .BID March 30, 2024 9:54am pad topically BID; Complies with drug therapy Start: 12-19-2019 Alcohol Prep P ads PadM USE 1 PAD DAILY 0 12/19/2019 Active 3 ml liraglutide 6 mg/ml pen injector (20 sources) GLP-1 Receptor Agonist Start: 06-28-2024 End: 12-02-2024 Liraglutide (Victoza 2-Acosta) 0.6 mg/0.1 mL (18 mg/3 mL) pen injector Active 1.8 MG SUBCUT Daily December 02, 2024 9:21am Complies with drug therapy Start: 03-30-2024 End: 06-28-2024 Liraglutide (Victoza 2-Acosta) 0.6 mg/0.1 mL (18 mg/3 mL) pen injector Discontinued 1.2 MG SUBCUT Daily 18 March 30, 2024 9:45am June 28, 2024 [...] mL) Pen lisinopril 5 mg oral tablet (20 sources) Angiotensin Converting Enzyme Inhibitor Start: 08-18-2023 End: 12-02-2024 take 1 tablet by mouth once daily Lisinopril 5 mg tablet Active 5 MG PO Daily December 02, 2024 9:21am Complies with drug therapy take 1 tablet by mouth once dunia y lisinopriL (PRINIVIL,ZESTRIL) 2.5 MG tablet Take 2.5 mg by mouth daily . 0 Active metFORMIN hydrochloride 1000 mg oral tablet (20 sources) Biguanide Start: 05-17-2024 End: 11-04-2024 take 1 tablet by mouth twice daily Metformin 1,000 mg tablet Active 0 .ROUTE .COMPLEX November 04, 2024 7:30am TAKE 1 TABLET BY MOUTH TWICE A [...] day(s), # 21 tab(s), Refills(s) 0, Pharmacy: [facility]/pharmacy #[id number], 178, cm, 08/03/21 10:30:00 EDT, Height/Length Dosing, 175, kg, 08/03/21 10:30:00 EDT, Weight Dosing Start Date: 08/03/21 Stop Date: 08/09/21 Status: Ordered Start: 10-09-2019 End: 10-09-2019 methylPREDNISolone sod suc(P F) (SOLU-medrol) Injection 125 mg montelukast 10 mg oral tablet (20 sources) Leukotriene Receptor Antagonist Start: 08-18-2023 End: 12-02-2024 take 1 tablet by mouth once daily Montelukast 10 mg tablet Active 10 MG PO Daily December 02, 2024 9:20am Complies with drug therapy Start: 11-27-2017 End: 06-04-2018 take 1 tablet [...] sources) Proton Pump Inhibitor Start: 08-18-2023 End: 12-02-2024 take 1 capsule by mouth once daily Omeprazole 40 mg capsule,delayed release(DR/EC) Active 40 MG PO Daily December 02, 2024 9:21am Complies with drug therapy Start: 01-21-2018 take 1 capsule by mo [...] . 28 tablet 0 06/15/2018 06/22/2018 Active TUDORZA PRESSAIR 400 mcg/actuation AePB (1 source) [...] shortness of breath or wheezing 90 30 November 04, 2023 11:21am November 04, 2023 11:35am Start: 08-03-2021 End: 01-30-2022 take 3 mL by inhalation four times daily albuterol-ipratropium Inh Jamilah 3 mL UD 3 mL, Inhalation, QID for 30 day(s), 360 mL, Refill(s) 5, [facility]/pharmacy #[id number], 178, cm, 08/03/21 10:30:00 EDT, Height/Length Dosing, 175, kg, 08/03/21 10:30:00 EDT, Weight Dosing Start Date: 08/03/21 Stop Date: 01/30/22 Status: Ordered Start: 08-03-2021 End: 01-30-2022 take 3 mL by inhalation four times daily albuterol-ipratropium Inh Jamilah 3 mL UD 3 mL, Inhalation, QID for 30 day(s), 360 mL, Refill(s) 5, [facility]/pharmacy #[id number], 178, cm, 08/03/21 10:30:00 EDT, [...] mg / clavulanate 125 mg oral tablet (4 sources) Penicillin-class Antibacterial Start: 04-28-2024 End: 06-28-2024 [...] day. 60 tablet 11 11/25/2016 11/25/2017 Active cephalexin 500 mg oral capsule (2 sources) Cephalosporin Antibacterial Start: 08-23-2024 End: 12-02-2024 take 1 capsule by mouth three times daily Cephalexin 500 mg capsule Discontinued 500 MG PO Three times daily 30 August 23, 2024 12:00am December 02, 2024 8:58am dicyclomine hydrochloride 20 mg oral tablet (8 sources) Anticholinergic Start: 08-18-2023 End: 11-25-2023 take 1 tablet by mouth three times daily Dicyclomine 20 mg tablet Discontinued 20 MG PO Three times daily 60 August 18, 2023 12:00am November 25, 2023 8:38am docusate sodium 50 mg / sennosides, fpc 8.6 mg oral tablet (10 sources) Start: 08-16-2016 End: 10-10-2019 senna-docusate (SENNA-S) 8.6-50 mg Take by mouth. 0 08/16/2016 10/10/2019 Discontinued doxycycline monohydrate 100 mg oral tablet (5 sources) Tetracycline-class Drug Start: 02-10-2024 End: 03-30-2024 take 1 tablet by mouth twice daily Doxycycline Monohydrate 100 mg tablet Discontinued 100 MG PO Twice daily 13 12February 10, 2024 1:00am March 30, 2024 9:46am 0.5 ml dulaglutide 1.5 mg/ml auto-injector (8 sources) GLP-1 Receptor Agonist Start: 08-18-2023 End: [...] daily . 16 g 12 06/04/2018 Active ammonium lactate 120 mg/ml topical cream (17 sources) Start: 03-30-2024 End: 08-17-2024 Ammonium Lactate 12 % cream Discontinued 1 APPLIC TOPICAL Twice daily as needed for dry skin 385 July 12, 2024 7:42am August 17, 2024 10:40am Start: 08-11-2019 ammonium lacta te (LAC-HYDRIN) 12 % lotion microencapsulated potassium chloride 20 meq extended release oral tablet (20 sources) Start: 08-18-2023 End: 08-16-2024 Potassium Chloride (Klor-Con M20) 20 mEq tablet,ER particles/crystals Discontinued 20 MEQ PO Daily January 16, 2024 10:16am August 16, 2024 4:34pm Start: 04-15-2014 End: 10-10-2019 take 1 tablet by mouth once daily, then take 1 tablet by mouth potassium chloride SA (K-DUR,KLOR-CON) 20 MEQ tablet Take 20 mEq by mouth daily . 0 04/15/2014 10/10/2019 Discontinued Potassium Chloride (Klor-Con M20) 20 mEq tablet,ER [...] Start: 10-10-2019 take 4 tablets by mo [facility] once daily, then take 2 tablets by [...] 10 tablet 0 10/10/2019 10/10/2019 Discontinued Semaglutide (8 sources) Start: 08-18-2023 End: 08-18-2023 inject 1 [...] 5 mL tiZANidine 2 mg oral tablet (5 sources) Central alpha-2 Adrenergic Agonist Start: 02-10-2024 End: 08-23-2024 take 1 tablet by mouth every eight hours as needed Tizanidine 2 mg tablet Discontinued 2 MG PO Every 8 hours as needed for muscle spasticity 23 12February 10, 2024 1:00am August 23, 2024 3:25pm [...] 11-25-2016 11-25-2016 Chronic Diabetes mellitus with complications (3 sources) Diabetic foot ulcer; Translations: [Other specified diabetes mellitus with foot ulcer] 06-29-2024 Chronic Diabetes mellitus without complication (17 sources) Type 2 diabetes mellitus; Translations: [Type 2 diabetes mellitus without complications] 08-18-2023 Chronic Disorders of lipid metabolism (14 sources) Hyperlipidemia; Translations: [Hyperlipidemia, unspecified] 08-18-2023 Chronic Disorders of teeth and jaw (7 sources) Toothache; Translations: [Dental abscess] 04-28-2024 Episodic Disorders of teeth and jaw (2 sources) Other specified disorders of teeth and supporting structures; Translations: [Other specified disorders of teeth and supporting structures] Onset: 06-15-2018 Esophageal disorders (5 sources) Gastroesophageal reflux disease; Translations: [Gastro-esophageal reflux disease without esophagitis] 01-16-2024 Chronic Essential hypertension (14 sources) Hypertensive disorder; Translations: [Essential (primary) hypertension] 08-18-2023 Chronic Gastritis and duodenitis (7 sources) Gastritis; Translations: [Gastritis, unspecified, without bleeding] 08-18-2023 Episodic Nonspecific chest pain (1 source) Chest pain; Translations: [Chest pain, unspecified type] Episodic Open wounds of extremities (8 sources) Unspecified open wound, right lower leg, initial encounter; Translations: [Injury of right leg] Onset: 02-10-2024 02-10-2024 Episodic Open wounds of extremities (3 sources) Injury of left leg; Translations: [Unspecified open wound, left lower leg, initial encounter] 08-23-2024 Episodic Other connective tissue disease (5 sources) Spasm; Translations: [Other muscle spasm] 02-10-2024 Episodic Other connective tissue disease (3 sources) Foot pain; Translations: [Pain in right foot] 12-26-2023 Episodic Other connective tissue disease (2 sources) Other muscle spasm; Translations: [Spasm of muscle] 02-10-2024 Episodic Other connective tissue disease (2 sources) Pain in right foot; Translations: [Pain in right foot] 12-26-2023 Episodic Other diseases of veins and lymphatics (8 sources) Vascular insufficiency; Translations: [Venous insufficiency (chronic) (peripheral)] 08-18-2023 Episodic Other diseases of veins and lymphatics (6 sources) Peripheral venous insufficiency; Translations: [Venous insufficiency (chronic) (peripheral)] 03-30-2024 Episodic Other diseases of veins and lymphatics (5 sources) Venous insufficiency (chronic) (peripheral); Translations: [Venous (peripheral) insufficiency, unspecified] 03-30-2024 Episodic Other screening for suspected conditions (not mental disorders or infectious disease) (16 sources) Patient encounter status; Translations: [Encounter for screening for malignant neoplasm of prostate] 03-30-2024 Episodic Residual codes; unclassified (8 sources) Sleep apnea; Translations: [Sleep apnea, unspecified] 08-18-2023 Chronic Residual codes; unclassified (4 sources) Sleep apnea, unspecified; Translations: [Unspecified sleep apnea] 03-30-2024 Chronic Screening or history of mental health and substance abuse (16 sources) Tobacco user; Translations: [Tobacco abuse disorder] Onset: 11-25-2016 11-25-2016 Chronic Skin and subcutaneous tissue infections (10 sources) Cellulitis of lower limb; Translations: [Cellulitis of unspecified part of limb] 02-11-2024 Episodic Spondylosis; intervertebral disc disorders; other back problems (7 sources) Low back pain; Translations: [Low back pain] 02-10-2024 Episodic Substance-related disorders (20 sources) Cigarette smoker ; Translations: [Nicotine dependence, [...] 06-28-2024 HbA1c (Bld) [Mass fraction] 6.7 % [facility] HbA1c HPLC (Bld) [Mass fract ion]on 03-30-2024 HbA1c (Bld) [Mass fraction] Hemoglobin A1c/Hemoglobin.tota l in Blood by HPLC [facility] Aerobic Cultureon 02-10-2024 Aerobic Culture Right lower leg wound Result Tab Codes Light Normal Skin Breana 2 Days Right lower leg wound No Anaerobes Isolated 3 Days Right lower leg wound Gram Stain Result 1+ White Blood Cells No Bacteria Seen PERFORMED BY: [place] [address] PATHOLOGIST VENEER CLIPPER GAIL KAUFMAN M.D. Normal [facility] Comment on above: Performed By: #### [facility] [place], #### [address] Aerobic cultureOrdered By: Yazan Hyde on 02-10-2024 Bacteria identified Aer cx Nom (Unsp spec) Aerobic culture [facility] Bacteria identified Aer cx Nom (Unsp spec) Aerobic culture [facility] Anaerobic cultureOrdered By: Jazz Hyde on 02-10-2024 Bacteria identified Anaer cx Nom (Unsp spec) Anaerobic culture [facility] Bacteria identified Anaer cx Nom (Unsp spec) Anaerobic culture [facility] Gram Stainon 02-10-2024 Microscopic observation Gram stain Nom (Unsp spec) Right lower leg wound Gram Stain Result 1+ White Blood Cells No Bacteria Seen PERFORMED BY: [place] [address] PATHOLOGIST VENEER CLIPPER GAIL KAUFMAN M.D. Normal [facility] Comment on above: Performed By: #### [facility], #### [place] [id number] [facility] Gram stain microscopyOrdered By: Jazz Hyde on 02-10-2024 Microscopic observation Gram stain Nom (Unsp spec) Gram stain microscopy [facility] Microscopic observation Gram stain Nom (Unsp spec) Gram stain microscopy [facility] HbA1c HPLC (Bld) [Mass fract ion]on 11-25-2023 HbA1c (Bld) [Mass fraction] 8.4 % [facility] Physician Orderon 03-28-2023 Physician Order [id number]#[id number] Normal [facility] Consent for Treatmenton 11-26 Consent for Treatment [id number]#1.00TIFF Normal [facility] Physician Orderon 12-23-2022 Physician Order [id number]#1.00TIFF Normal [facility] XR Chest 2 Viewson 3 XR Chest [...] . DAP = . Normal [facility] Consent for Treatmenton 07-26 Consent for Treatment [id number]#[id number]:127 [facility] Physician Orderon 08-16-2022 Physician Order [id number]#[id number]:127 [facility] XR Chest 2 Viewson XR Chest [...] in mGy = na DAP = na [facility] Coding Summary.on 05-30-2022 Coding Summary. CD:[id number] bWw+PGhlYWQ+FC8NZTF uK02jrRUuuA7aT2CATR lOSywgQVBQTElOSyIgb uGlEF7rfRGlEJMb IC8+RD5tHGAqBxswgHS nv6F3cAX0S00qzj2gWQ zpaJJ2ZXHqItLxqtgrt 4kxyQr0WUtyBbbyXgSp ZMVmcR37OZG3iR01Aw0 7hYIivVUwt4ywfGk7Lt GbIKYmYIC1xPhmBVvup 0GmYYOmJ46jfOYik1Z5 IGNvbGxhcHNlOyBlbXB 8zJ2hGWayuivmt6xzxf ooCbt3ak08dVGxb0A4h FC9L3KgdrV7BFVtsOHp BuhpbSAIpH1pvykdr4e otllwLwNzYRCuMJa5QS y4LMUwrQouKmKkNC05R EE0BWJiorRnB7CeIPRl yRbkVtX4v9S7Iz9KW9K MFaxnB5QUYXMMXTmmpT Q+YF18jv90G2PnPntfD nz0CGFyTYF6yME3fB6i SBIzLZedn4P4tKB9P6N ldeQvkr8mp0doHUVpWC ioH61zxBVfr5H5OIOuf PH2ZVLctPpkThYmuQ65 Oyc+VKGpoWxpi5McWtn lk2ufn2oavDa8DnalHF JumfUgpDdmBBB2y2EzS y3hQKGgcEO8yDE7zQ8m IxOcNxK9OLgsE379FiL yxXOjSqosR31xD5EhrJ A+HQQxLuo3UYAreYczL V5lA1ZaWODvbfnprLSr lVtqLU0xBZRvwgqoHPW xdU1oKBEjQ7t3UkYhVn F6WGasG9GcWPYgsnfyP n69qB7uPcPjTuC0HHkw Y2QhzeU5GLXeoEMdYGh zGAX6A97ar6H6QNDqLF RnRMG9kFJ6aK7wlChzr jogbGVmdDsgdmVydGlj OXfwXAwiJ775TBWtpMp nPkNvZGluZyBEYXRlOi AgMDQvMDYvMjAyMzwvd GQ+QNBmPAB2dJtaYZDj hWFxPFliOc5hrSduhLm yGM9bIAYthhvwVCRnrK 3mAOWbrAJwvStaWE4fU AKzlxvdm595HrPfPRW4 TPMytUJsL6EvaZ8kFfG eSDVaXQNfI6GryOTiSM tjU186RYolAdJ6XVXxm uSkJ0EfOXMpqNqlVgP1 k3E7Wz5Nj0AziuqxC1E jqFWvZpOhAqxwNTd3H1 RkPjwvdHI+PE28TLWfF I23DKd1OIR1zKkkUQyk CMPdI0SwhU6bYuFeCNP kZGRkOyc+PHRhYmxlIH dpZHRoPScxMDAlJyBzd UifEQ2jNd2lJNLuPAAw fDrunSYsXnQdk4jiQLR nSOhmVR8rhHnrG6RjoK U5FBDqw7i6Qa47Z62yE 3JvdXA+CEBgxOE3jZF2 kT5jNyQyUrU9ZBesT37 7ZyGllQOyFzpva1oza6 pmmZy5FfC3VSTwurQee JugDTL0j2UmEi74S39r IHdpZHRoPSIxNSUiIHZ onIvksj3vfH3xOs4+PG IgvHT7tRV8lR5mVpEuO vJ1VFleM346OlBtwVGs Eobnw3xls6bxfUq6LnX sEDDcgcHhaFxjLVG0o0 NbQh31O5IhmXyem5EtU th1ba77tIKvb1G7dMX0 D8PuWUNadepcmEIpwWw lAX4uXBZpamraJGDfgD 5vMOKwS8b1YzHtDqO0O UvpB8LsfkE2FUQkyFNw DUQxmRFZiY0krixdx0n siaegKdEcQYRvGAw5BJ d8LGFphIldZlYcJED1F tN6RYU4nWQdcO9kjInv xnqqjQ6hOyb+DMK3yWC kaCYKQM2bTqybwMR+PH HrOKU4dDfoOHvvYICav D0cDHIlA7b8MeWoHhJ7 LFswB2ZexbK1RWUzgIE hNZNzmDQDeA4rgdwyl0 qsyucrXgWvFJQbAAf8V Om4YKSeaXzaTrNqIPA1 KhJ7WUX4nYJmlM1weVe hdunleI0kAre+QmlydG fyOBY4UNo6X9ZjVbh7L DQpwJrvDM0zyNQdTSdz Hb6owMdnzDvcBQ7eUFH opisli956SfGzs3mcXO QxyIAdXLsiTLM8N14pj 3I0DVXhVGUgPWW4yZQ0 fY8atUjmtqiisHLtwWi gdmVydGljYWwtYWxpZ2 63IUIpiMmlTkPfCEg2T 5RfNux7HBCfdDaeFW9y tCFqMXkdGq2mgAopuKf uAI2mJZZjzfbca223Gm Qpl8nzUSKdyHZsJMwmA YN0O60dc8Q8ASCzANNb YYX7tXW6tD9njPhtyhn gbGVmdDsgdmVydGljYW vlXLnaY601ULFnzYufF zXnuFf5A0AzYvz6PWJu qRdjGA7zuYFyXDdrTh3 eaVgguEuoLX6bHJGeka bog303HgJlk2amAIZms KFsMUviXKW3V72kt3E8 IVGqMATvXVC1wSD8oJ7 hbGlnbjogbGVmdDsgdm TopJujSEceVVzfI781F HRvcDsnPlBhdGllbnQg KKbkGOy2E7JyClzueXK +QJ94LQRzDN17lQYbrD Tpp5gesTf7LdSdFEFxG JE7zOhmSXlxz6WyNZXe N36diWHmj0R5XEAwaOy ktWZvNwHekFP5dQ0gAU rwakhbw4dcuxjhCvpuk 5nalz55rH17P27pVSym ZHRoPSIzMCUiIHZhbGl fam6pfA5bMh0+PGNvbC L9eVE5yT6fTGAcFlT1Y SibI952CsAsoYMcWowv y0krf6wviOh9PqO9BWQ zonVbiNmnCEG7y8NyJp 47G86pXBzlMLLyVBPbF GRfYMRuzRewek9kgK4s Ii8+GKDleOC8vID8oI2 oBnFmAiF6JWzdH272Ts HhnDJbWridM16nE0Joz XA+MIEoGxb5IQFkbKwr YM5yzPToJFktAm9hDPE 5FeHxRiFcSIemW3RmEH NqhfqhxuwzrYW7MITmO TCwqF42Gh5njPmhBIKv mZTIsQ7mfwyxw1nngjw zJjDdWTKnNNs6VUe7LL EvrVdlCpByOZD4RwS7Y PG0pPUiaO3zwEehkyul kH8eS0WdSRNudpmkGu6 1aA9cXhQiSbH8UGikDm c+QkVITktFIEpyLCBUS R1CXPDxPWpZGX68Q6Wt Wpo3JHIzdMwpUW0blNS dTOplUi4ubJvspRriWW 3hNBYjrvpsQZXfhR4xP EXgxPWgdYroZQ4vIYNh wrppi740MiUdAJK7CLV npZZvC1UqlG3wKiUjRB SfYVQdY0VsyDAlBIebS 238WEkkCrK0CHIajqBo W3HzOWSlrJlhQvL2y6S 3Rg1bUN2bAT4dVKreRW 56OQ58iXGjb7F7sBG3R 8TwJZLznenwruzyeQS6 ASPmEHFeqD57gSYxKQw qFn7ur4J5m394YGBlJH PklI28Pg7omJnwLZNft VDAnQ6xwfsun2zygllb LoQzZJTqRQu7YSy9ZPM mdAixBjDeJBY8HuU0MI E3vXZhoY1qtSyjnmexi G9wOyc+NTIgWWVhcnM8 K8QqQmn4UENvxDsrGZ9 apAVyNKxuHu4nfKmfeI ckYR3zOWEpumupDXRch N7kHHKxgPQfoSekAM0z HIWtzkmjk831CiSyBMR 3RYJgnIPiO9ZmjV1dJb QbUERhVCXiW5TnaOYcY RgpX775CIoiGrG6JLBs xlDnQ7IyYCKtaDpqXrK 7p6I0Nb5XXIjcSB68QP 50jTLgq2E3pNZ8V5CtW ORcynokkqafnAB2ZIBb NTNzkT97gKAbWJvkLg0 ek5N4e766OIOxDNOjvY 65Zg9iaXulBONqaJLWw S1cpmmax3zzuwiuAbFj QNMyNJb9AVy4RRXxpJq wBeBpGSW0JfW4ZUI4oR BwmB8mqKnvocvhlS9eJ yc+K2A8sEL3aPCsbRpe dGQ+ZO48vt96O2KtHkc eJmx8UQUlUBR4vRX0qW 5wHHXkEWqnl0Y3kAX2Q 4XdcxUhqd0bw8arFDSv PGpgL05zaFPvl8R0JOO xxED0LEZdgDcmFsOmpF 93Oyc+DVJncWxvn8IyO ufuw1mtp2ejbTr9NwYc PHOqosWdtQnxJAZ5n8O vRg67O14gIUhpCOEvYD HuMFIpXGHftNzvlf0vr G9wIi8+LBVqwFJ4gYD8 eO2wBkPsXgJ8IWwfB94 2TjJtbHKyMmply2lvk8 xefMt8MvRsHRAxalAym PbeVVG8b4LlOi47L6Pc qZcuv7SjPrd3zs34rHQ xs4W8xTE6O7JgFDTkjz hgiUTodNxcWT1cNJQwn ldyRULvwS1oXPFxW7c7 WoOlXeI8NFbkW2SctgI 6IGJvbGQgMTBwdCBUaW 8ntmvnt2alatflKoKnG NZcXRm3HWq8LRWwiAcj OgUtEVT7MsR2JNG7eQQ czI3frYzztotluV5hGk c+UGr4n3iigTMlIP3jc LI9WF22PZ12ySCaq2L3 yBJ7Z9XvBBRnibcmdii auCP6QCOzHISceP83Tf 9idLczBy8eXJTiEZK8O XFzgEAnF1TxgO2xDqBx RDIzNODyL9UnfAMlESy jJ419LVfuClO0RIGfkk YaX3DySEViqHntXsF0q 3E5Wi5VVV11OR88DJ16 pEQrt6T6fVO0M3EvBQR smajqgoruaBE4UPIcHC KmqV91Qp7qqStqTr7wW YMuDCS5MECtpEHfY4Ch pJ4aXcVvJNDqGTPwR7O mrCHuEAckY892BLiwDl G9KJFutgEpZ4YtDMFpm WpbPfQ8k0S0Ow2INs94 AD81ZT44jABiq1E6wPQ 8R1MvXPIygafrqjidoL S7JGHrZYGybO63Cn2ic UeuUt7fCUBnXAO1FCXh yLThF9YkmH7mIaRoDJM oNUXhA1WpmZGfSOwlV9 62STbxMkJ0PQEgsjUmV 2AyAUMapQvjAhS0n1U1 Fl6DYVkhemv8Q1GvGer vdHI+GZ99HJBgTX90fZ TfcFWhi4vcpXm2OzFdO BExZPB3fMfySRoch5Gn NKSjZ70j (more content not included)... [facility] Consent for Treatmenton 04-25 Consent for Treatment [id number]:[id number] [facility] Physician Orderon 05-22-2022 Physician Order [id number]#[email or web address]:127 [facility] XR Chest 2 Viewson 3 XR [...] in mGy = na DAP = na [facility] Coding Summary.on 05-15-2022 Coding Summary. CD:[id number] ZLj8sSa+PGhlYWQ+PE1 DIMHnQ26vvBDmqL7jA1 NMTElOSywgQVBQTElOS iJnnkJfWJ2xeWHlHEIh IC8+KV8gIICaSmvpfIB ax2Z5oNB5H41lbb6vMB jfgRP1KCFaLuNehjjba 9drgFq9YKcqFabcWdTe BLLozO43WCF5hH13Nm1 9bCPydKQpf4qqrRc7Qh LtFJRlOCU7sGafFUpwl 5WfACSuS35ixQNup4I4 IGNvbGxhcHNlOyBlbXB 6nJ9rTNjdhcaze2ggtk biLfx2zx75uKAws4C9j VT7L6AtmgZ1YCYcsNGl YwkgpKGWtT7wyddge5q jucbaVdHvXLOaAXl4OE e5XMDnrJzgJfKnMD24Q GN5CTPnktFfW8QmXGKa cMeuDjH9o0S3Yz9BA1Q YZnazT1ACRZSICUndlC Q+CL96mf56S7OxVmujP pl9GIJjPRJ3vZA9pC3q QIGgQXyme6F1lIG8M1D oblCgfp7bf5ylKRJgQU qyW64ssMLpi8H0HIWii NW5VCTkjIqyBsLegI73 Oyc+KYKxoEire2CyHet gy7oif7wneLr0TsszCA WnzaWdgWcnTOJ8o5SgO n2sWTFulLH8eCJ2cG0v YkYfLjH3CEbtP625PsM wbSTcZnxeS95dZ6EayS A+NNKcZqv1DNMweIqcX G3qD8KwMXBcyfjkySOy mLagRJ9mKUDiotlmNBF peT7mUJTmK5l7MzQgZz W3ONrcP5DlCUUeqcprF a55vT7pVgSbBmC1FNhj Y6AquxJ1OZDxfTQmCUs bKFH9M87tk9G4BIOoWC FpORS8bJT3oS4tmJyul jogbGVmdDsgdmVydGlj EVxtMYphZ045TJYlcYi nPkNvZGluZyBEYXRlOi AgMDMvMjIvMjAyMzwvd GQ+LBJmIEP9pKpmMZJf yOSrRIcjDg9yoIklfCd yLC1iPNYarmtuNGIxgX 9hBTOfaQSrqUxwBT4mJ BZubuiod335XqIfOOU5 EUIecTDfG0YceU5fBwY oRLBfPOBhZ8LbxWKoXJ mmU088IOtiKrS0ABXmk xXzE6CdBZPgsSzrGvA9 i8S7Jc3Ho6TshqcfL8Q poZHiEqKwGwdaYSd1E4 RkPjwvdHI+WJ95XIIkO P09IEz3OLE6qPdxAEgn MLYkE6GyyF7eSgEjMII kZGRkOyc+PHRhYmxlIH dpZHRoPScxMDAlJyBzd AbpUZ2cPs6cVRZuFKZs xAdpdICmFtGwd7lkBCT fMNqoNC2afRbbF1CqnE J8OEPix3h9Id36F12tV 3JvdXA+GDRxcVV0xEC3 kM0hZlKfZnH6CUgwP51 4TiBwaUSdZkpzh7djr2 chsMt0HxI7TYVdhjXyk FozFUO7y9UsIz65G96b IHdpZHRoPSIxNSUiIHZ dtDtzmu6dfR2fSc3+PG OsaEJ9bDK9kD8fZmTcA zV0UCzdL791WlVmtOJo Hpyim8nnj9ufcRa3HkA yIRKtiiLbwZgfTML0r9 AnEb89Z6LlhHsyr1EoY md6fk25qBJau8S9mGF2 Q7GtVFVtphvruAYklYh eFD9rBXAzbrwnPSQgyI 9gCJWnF5s7ShEdZkK0V XjfZ4QpzfF7AJVglPEo LEWtmGVWdO7zlkggm8b lfetzCrNpWNWbFJx8DQ z6CNVbiNpiNpBaIFI4Z cW2QWW9fTGxuR8weZhp yuxhkT9yJnh+DEH9vJY ulZUVZB8bKykcmAW+PH ZvJWS2uAygBDpuNDEec B2kSQCmO5z4RuRaZmI1 HNcpJ2DqjxX9ZRUyhAX lJDVrnHCMxJ7dnmpgu9 yyftkiCwOfJTEwUZt9R Xc8GDXcpRqkAnTgUOR2 YjK1YTM1nWYgvX4peIn hthlpuG4lLfa+QmlydG maPCI0NKs8P3NuRkt2D CWudVgjHR9lsPVpWHmr Vj1rqUxelJtmZO6hAYF nvpskz941AmJlu3hiAN EofFFrWJplFJW7H67xr 5R1XDInZJCwMIF0iAG2 iR8vbSzphgqquLEbwNn gdmVydGljYWwtYWxpZ2 83QRQwqOppEhJeAJl9Q 1GlUpq9NDZreIpzXZ3h xXVmRVaxLe6nkWqvrYz dJZ7kKHOvynzvp061Rd Tpv2usVHTniQLrFGbqK UM7G59az8F9VNQtUNUp OCQ1oZK3zK8uxHtsxoy gbGVmdDsgdmVydGljYW kdTYcvL700AKGzcBlqJ qZlvXq1L2YwWpn3UGFx pCqhYE6acNLiCVbsCn1 xcIgjeWtpCQ0nKKHnpv oyk670DhOtw0kpEDVfn CAjWZmpSZF9N96kd8Y6 MEYcTIGaBIC1gXT2cO7 hbGlnbjogbGVmdDsgdm LkwWqcACvnEQuxY711W HRvcDsnPlBhdGllbnQg NKvwADe7H3EdUqvtlRZ +OJ81WROfYP58yPYocK Owr4rxfGz1MgWzHNSjA GJ1bDnnDFzai1PaHZRq Q80opGSgp9Z7XUNuwFw tmZMhEzIyqGX7pM4cIZ namadmz0fallqyHeicb 8whmk82mC08F47bATva ZHRoPSIzMCUiIHZhbGl dga6sqT1aLp6+PGNvbC E9hUN5eR4yUTCzBoW4Z YecQ580AjIcrCIhQbcj q8lgo9ssiRd4AsM2EYU gytHsjXldQIJ3x0UrHm 63S51tHXxgDSZrYLXiV LDbHKEckVjfde7iuH0k Ii8+KWMapNV3yYR8mC4 bViZyMzG1SWdrK272Nh ErhJAsXvjoP62pN5Zps XA+LBExJut1POHutSpa YB8ycLJwNTsvEh5sUQL 4NyAvFeJxPCrrZ3UdBV XlbllexcshcTI0AGAoH YFscA93Ep5iuXmvCYNr oRCYjC8ijoegl8fvhko yJmNtNVGjNFw4NVu3WX ZemUdlSjDqKEH3IgS4G JA8lLBunG5ixLmgitgq gP1lG2RbOVWhlewqRb0 6tV2cAiWwHxI3BFufFs c+QkVITktFIEpyLCBUS O6RNWDpEYuILN61D8Sx Pue0QTSgfQrwGI3zsLR wLRekWs3woIwblEuvXH 4zTCMeqcmrFTQmsG1pY JPctTXsnVtaGK1pCWJl rukqg164SjVnATO2ONI sjTTfW3OtfZ8dXaNmMK MqTIMyP4BnjYNjBStgH 577AOubZvR4LQZlpeSz Q6UkVJAuhWvhNvL6r6W 8Ua5aAM3iOG8lSVqnYS 09EU10xMNkz7H6mAE9L 3LlPGOmbkzvtugqfRY8 RWQrVOClcI47bJLkXSu hHd6wp0E3m752UTFcRB YnsK31Gw4yqPwrHYUtp LPMwL5tieqzc8jgeudi NuTfHNBpVJv2NYa0BYE zcHuwTuSeMAX9EcP6QZ S9xFVakN9aeQeapwtsb G9wOyc+NTIgWWVhcnM8 B1LwLff3ABSuxSynFC8 nnTSoBDtxSg5vlKuoqJ jsPR8cTTLdkmwiGMTog G0jWVAmdCLtmFezYH8i TKKkfjquh329DzRwTXC 9RUQuhQWrX1EvoI4kZv AfNIIpUZZbS8KwdFNjM ErnP676HNavZeX8XEKc efSrE7GlDQPvgZqzRiA 0d8X9Cl9YCHtnGK65QS 50eENel1W4kNL3J9LaC ZSpumwmlravhZM7RKKo QPAhdE13dGVqVVzrQn0 oo8T7g561ZBRzWJEysP 78Vn5wsAhbIVWwrFGGb D0yxcsef4qwxvtwHfKu NRJvVIe3PVy2BGTmmQr iDaMxLVO6EcR4XOC9vB NtsD5myMopmrurmB6bN yc+E2X0lBB0bOYzaBgq dGQ+XG47ie54I2VvVqf oHat4PEGxYIP9rHU4hG 5uEFFwUPhoc8R7wOV0G 7FaeiUhyx7nf9nhKARx ANbvD86miMZml0N0YCO ipLP3VOGluYawVuJfcQ 93Oyc+WOBeyNlkj6EaR dzgq9obq4bgdBi2TeCx NXLhopPzkZmeDJY3i7I mDe16K91lEAqoIYLgQJ FzPXJpBFAdeQpvyu0wh G9wIi8+EXTyqFN1aKQ0 rJ0lNkIuJbM3KBbvG53 2EmJppROmVpovg2dhj0 wtaAi6IkFuAKJtabYow WhqWOS2p8RvPh41V0Gj kNzgg4LxHqg1kg91hWP ps8X7sAM9E6SiGRHkdu czdUXdmPobID6zNXEll juwDMXcfQ3gPPFaV6w4 HnBzGsC2BMtrF3NjpoV 6IGJvbGQgMTBwdCBUaW 7pnnmkx7zvaqbjQlFpG HWjOTk3IBm8OBGgfRmm WnLnXVG9KzP5WAD3wCA suK0hiLoiphgmeT5xCh c+USc0r5xdbCNyNM8qf HC5RW88ZD56kPOcy8C8 gIS2C9YeHGHxgwippuw dlEI8RZKyMAYhjH23Bg 4yoDkrYo5sJLYuWZL9W JQsmSXxL4ExvT1gZrIf VZKjHEQzU7UngQXoJOx eV467RFgrSuH1HLDxtx TkP3GkGJBtzMtfOrQ3h 1S1Vw4QQV91OC45VJ28 vPMve6U6zNK6V7DnVCD byguvyvrzwBJ6YVAaXD UtmX14Vz0ryJahOd1xZ TQbXTW3ISHidOYqM8Az nQ9rAyOaMMFyNXKyC6U qhGUhDUjdN557OZljDs U4SYIfkjBpT5UcGNWga GreDyQ9w1O7Ic5HSf12 FV36OC76hMQng8T7eNA 8N2LmWDOssciisapflV D4JGGaPBAxzI62Id4pm BvvFd9tDEKfRQR5CTSc hBOpX3HstV9gXmGtWLR wMTOsL3YlxQPbHDtnX9 62KUbnLtQ1IAEwpiPwQ 9LeISUpnXuaKvA0f3E3 By5JIAlivek0X1XzBul vdHI+HN42BSNuKQ31vT OcpLClu1xbmCe2KkDvV UBcWSA5eJqfIKppa8Gq ZXIt (more content not included)... Normal [facility] Consent for Treatmenton 04-24 Consent for Treatment [id number]:[id number] Normal [facility] Physician Orderon 05-06-2022 Physician Order [id number] Normal [facility] XR Chest 2 Viewson 3 XR Chest [...] na DAP = na Normal [facility] POC COVID-19, MOLECULARon SARS-COV-2 (PERES ID) Not Detected Normal Not Detected [facility] Comment on above: Result Comment: This test [...] at the following links: For Healthcare Providers: https://www.fda.gov/media/067153/download For Patients: https://www.fda.gov/media/832666/download Performed By: #### P [id number] #### OED FSED POCT LAB [address] [place] [address] Rao Pérez, Ph.d. [id number] POC Troponin Ion 10-10-2019 Interpretation and review of laboratory results Normal [facility] Troponin I.cardiac [Mass/Vol] ng/mL <0.05 ng/mL [facility] XR CHEST PA/APon 10-10-2019 XR CHEST [...] are clear. IMPRESSION: No acute cardiopulmonary disease. [employer] Workstation ID: [id number] Dictated by: CHACORTA ROCHA on Sat Oct 09, 2019 11:08:51 PM EDT Transcribed by: WILLIAMS THOMASON on Sat Oct 09, 2019 11:24:16 PM EDT Finalized by: CHACORTA ROCHA on [facility] 2019 6:06:07 AM EDT [facility] Comment on above: Order Comment: Injur [...] LAFB QRS axis: left T Inversion: aVL MO Interval: 168 QRS Interval: 88 QT Interval: 433 Clinical impression: non-specific ECG [facility] POC CBC and Differentialon 0 10-09-2019 Basophils (Bld) [#/Vol] 0.06 10*3/uL [facility] Basophils/100 WBC (Bld) 0.6 % [facility] Eosinophils (Bld) [#/Vol] 0.17 10*3/uL [facility] Eosinophils/100 WBC (Bld) 1.6 % [facility] Erythrocyte distribution width (RBC) [Entitic vol] 15.2 % High 11.6 - 14.8 % [facility] Hematocrit (Bld) [Volume fraction] 45.8 % 41 - 53 % [facility] Hemoglobin (Bld) [Mass/Vol] 15.3 g/dL 13.5 - 17.5 g/dL [facility] Immature granulocytes (Bld) [#/Vol] 0.07 10*3/uL [facility] Immature granulocytes/100 WBC (Bld) 0.70 % [facility] Comment on above: The IG parameter is the percentage of metamyelocytes, myelocytes and promyelocytes. An immature granulocyte count (IG) of 1% or more suggests the possibility of infection, an IG count of 3% is very likely related to an infection. Interpretation and review of laboratory results Abnormal [facility] Lymphocytes (Bld) [#/Vol] 1.91 10*3/uL [facility] Lymphocytes/100 WBC (Bld) 18.2 % [facility] MCH (RBC) [Entitic mass] 27.8 pg 26 - 34 pg [facility] MCHC (RBC) [Mass/Vol] 33.4 g/dL 31 - 37 g/dL [facility] MCV (RBC) [Entitic vol] 83.1 fL 80 - 100 fL [facility] Monocytes (Bld) [#/Vol] 0.65 10*3/uL [facility] Monocytes/100 WBC (Bld) 6.2 % [facility] Neutrophils (Bld) [#/Vol] 7.65 10*3/uL High [facility] Neutrophils/100 WBC (Bld) 72.7 % [facility] Platelet mean volume (Bld) [Entitic vol] 10.0 fL 9.4 - 12.4 fL [facility] Platelets (Bld) [#/Vol] 166 10*3/uL [facility] RBC (Bld) [#/Vol] 5.51 10*6/uL [facility]alth WBC (Bld) [#/Vol] 10.51 10*3/uL [facility] POC Covid-19, Molecularon Interpretation and review of laboratory results Normal [facility] SARS-CoV-2 Not Detected Not Detected [facility] Comment on above: This test was [...] at the following links: For Healthcare Providers: https://www.fda.gov/media/276055/download For Patients: https://www.fda.gov/media/296529/download POC Troponin Ion 10-09-2019 Interpretation and review of laboratory results Normal [facility] Troponin I.cardiac [Mass/Vol] ng/mL <0.05 ng/mL [facility] POC Venous Blood Gases with Full Panelon 10-09-2019 Base excess Calc (BldV) [Moles/Vol] 0.9 mmol/L [facility] Calcium.ionized [Mass/Vol] 4.1 mg/dL Low 4.5 - 5.3 mg/dL [facility] Chloride [Moles/Vol] 101 mmol/L 98 - 10 8 mmol/L [facility] CO2 (BldV) [Partial pressure] 46.0 mm[Hg] [facility] Creatinine [Mass/Vol] 0.84 mg/dL 0.50 - 1.30 [facility] GFR/1.73 sq M predicted among non-blacks MDRD (S/P/Bld) [Vol rate/Area] The eGFR should be used for monitoring renal function only and not for medication dosing. Specimens collected in a lithium heparin tube may show erroneous pO2, pCO2 and related calculations due to aerobic handling. If the most accurate venous blood gas results are needed, use a heparinized blood gas syringe. [facility] GFR/1.73 sq M.predicted MDRD (S/P/Bld) [Vol rate/Area] 103 mL/min/{1.73_m2} >=60 mL/min/1.73 m2 [facility] Glucose [Mass/Vol] 202 mg/dL High 65 - 99 mg/dL [facility] HCO3 (Bld) [Moles/Vol] 26.7 mmol/L 24 - 28 mmol/L [facility] Hematocrit (Bld) [Volume fraction] 46 % 41 - 53 % [facility] Hemoglobin (Bld) [Mass/Vol] 15.5 g/dL 13.5 - 17.5 g/dL [facility] Interpretation and review of laboratory results Abnormal [facility] Lactate [Moles/Vol] 1.6 mmol/L 0.6 - 2 mmol/L [facility] Oxygen (BldV) [Partial pressure] 39 mm[Hg] [facility] Oxygen saturation in Venous blood 71.7 % High 40 - 70 % [facility] pH (BldV) 7.37 [pH] [facility] Potassium [Moles/Vol] 4.1 mmol/L 3.5 - 5.1 mmol/L [facility] Sodium [Moles/Vol] 137 mmol/L 135 - 145 mmol/L [facility] Urea nitrogen [Mass/Vol] 8 mg/dL 8 - 25 mg/dL [facility] Complete PFTon 04-01-2017 DL Adj Pre [...] Time Vital Sign Value Performing Clinician Facility 12-02-2024 08:52-0400 Body height 177.8 cm Jazz Hyde APRN Work Phone: [facility] 12-02-2024 08:52-0400 Body mass index (BMI) [Ratio] 52.2 kg/m2 Jazz Hyde APRN Work Phone: [facility] 12-02-2024 08:52-0400 Body temperature 96.1 [degF] Jazz Hyde APRN Work Phone: [facility] 12-02-2024 08:52-0400 Body weight 165.1 kg Jazz Hyde APRN Work Phone: [facility] 12-02-2024 08:52-0400 Diastolic blood pressure 66 mm[Hg] Jazz Hyde APRN Work Phone: [facility] 12-02-2024 08:52-0400 Heart rate 84 /min Jazz Hyde APRN Work Phone: [facility] 12-02-2024 08:52-0400 SaO2% (BldA) [Mass fraction] 92 % Jazz Hyde APRN Work Phone: [facility] 12-02-2024 08:52-0400 Systolic blood pressure 120 mm[Hg] Jazz Hyde APRN Work Phone: [facility] 08-23-2024 15:24-0400 Body height 177.8 cm Jazz Kwonfaraz [employer] Work Phone: [facility] 08-23-2024 15:24-0400 Body mass index (BMI) [Ratio] 51.7 kg/m2 Jazz Mosesjuarez [employer] Work Phone: [facility] 08-23-2024 15:24-0400 Body weight 163.74 kg Jazz Mosesjuanreemafaraz [employer] Work Phone: [facility] 08-23-2024 15:24-0400 Diastolic blood pressure 62 mm[Hg] Jazz Mosesjuarez [employer] Work Phone: [facility] 08-23-2024 15:24-0400 Heart rate 81 /min aJzz Mosesjuanreemafaraz [employer] Work Phone: [facility] 08-23-2024 15:24-0400 Respiratory rate 12 /min Jazz Mosesjuanreemafaraz [employer] Work Phone: [facility] 08-23-2024 15:24-0400 SaO2% (BldA) [Mass fraction] 95 % Jazz Mosesjuarez [employer] Work Phone: [facility] 08-23-2024 15:24-0400 Systolic blood pressure 112 mm[Hg] Jazz Mosesjuarez [employer] Work Phone: [facility] 06-28-2024 08:27-0400 Body height 177.8 cm [facility] 06-28-2024 08:27-0400 Body mass index (BMI) [Ratio] 52.6 kg/m2 [facility] 06-28-2024 08:27-0400 Body temperature 96.9 [degF] [facility] 06-28-2024 08:27-0400 Body weight 166.46 kg [facility] 06-28-2024 08:27-0400 Diastolic blood pressure 70 mm[Hg] [facility] 06-28-2024 08:27-0400 Heart rate 60 /min [facility] 06-28-2024 08:27-0400 SaO2% (BldA) [Mass fraction] 94 % [facility] 06-28-2024 08:27-0400 Systolic blood pressure 122 mm[Hg] [facility] 04-28-2024 13:07-0500 Body height 177.8 cm Jazz Hyde APRN Work Phone: [facility] 04-28-2024 13:07-0500 Body mass index (BMI) [Ratio] 52.2 kg/m2 Jazz Hyde APRN Work Phone: [facility] 04-28-2024 13:07-0500 Body temperature 97.4 [degF] Jazz Hyde APRN Work Phone: [facility] 04-28-2024 13:07-0500 Body weight 165.1 kg Jazz Hyde [employer] Work Phone: [facility] 04-28-2024 13:07-0500 Diastolic blood pressure 82 mm[Hg] Jazz Hyde APRN Work Phone: [facility] 04-28-2024 13:07-0500 Heart rate 82 /min Jazz Hyde APRN Work Phone: [facility] 04-28-2024 13:07-0500 SaO2% (BldA) [Mass fraction] 93 % Jazz Hyde [employer] Work Phone: [facility] 04-28-2024 13:07-0500 Systolic blood pressure 130 mm[Hg] Jazz Hyde APRN Work Phone: [facility] 03-30-2024 08:26-0500 Body height 177.8 cm Jazz Hyde APRN Work Phone: [facility] 03-30-2024 08:26-0500 Body mass index (BMI) [Ratio] 54.1 kg/m2 Jazz Mary Ellen [employer] Work Phone: [facility] 03-30-2024 08:26-0500 Body temperature 97.8 [degF] Jazz Mary Ellen [employer] Work Phone: [facility] 03-30-2024 08:26-0500 Body weight 171.11 kg Jazz Mary Ellen [employer] Work Phone: [facility] 03-30-2024 08:26-0500 Diastolic blood pressure 72 mm[Hg] Jazz Mary Ellen [employer] Work Phone: [facility] 03-30-2024 08:26-0500 Heart rate 103 /min Jazz Mary Ellen [employer] Work Phone: [facility] 03-30-2024 08:26-0500 SaO2% (BldA) [Mass fraction] 90 % Jazz Mosesjuarez [employer] Work Phone: [facility] 03-30-2024 08:26-0500 Systolic blood pressure 122 mm[Hg] Jazz Mosesjuarez [employer] Work Phone: [facility] 02-10-2024 10:53-0500 Body height 177.8 cm Jazz Mary Ellen [employer] Work Phone: [facility] 02-10-2024 10:53-0500 Body mass index (BMI) [Ratio] 53.7 kg/m2 Jazz Mary Ellen [employer] Work Phone: [facility] 02-10-2024 10:53-0500 Body temperature 96.3 [degF] Jazz Mary Ellen [employer] Work Phone: [facility] 02-10-2024 10:53-0500 Body weight 169.81 kg Jazz Mary Ellen FUNEZN Work Phone: [facility] 02-10-2024 10:53-0500 Diastolic blood pressure 78 mm[Hg] Jazz Mosesjuarez [employer] Work Phone: [facility] 02-10-2024 10:53-0500 Heart rate 81 /min Jazz Kwonfaraz [employer] Work Phone: [facility] 02-10-2024 10:53-0500 SaO2% (BldA) [Mass fraction] 92 % Jazz Stollmonica [employer] Work Phone: [facility] 02-10-2024 10:53-0500 Systolic blood pressure 136 mm[Hg] Jazz Kwonfaraz [employer] Work Phone: [facility] 12-26-2023 08:58-0400 Body height 177.8 cm [facility] 12-26-2023 08:58-0400 Body mass index (BMI) [Ratio] 53.8 kg/m2 [facility] 12-26-2023 08:58-0400 Body temperature 96.6 [degF] [facility] 12-26-2023 08:58-0400 Body weight 170.23 kg [facility] 12-26-2023 08:58-0400 Diastolic blood pressure 78 mm[Hg] [facility] 12-26-2023 08:58-0400 Heart rate 116 /min [facility] 12-26-2023 08:58-0400 SaO2% (BldA) [Mass fraction] 93 % [facility] 12-26-2023 08:58-0400 Systolic blood pressure 138 mm[Hg] [facility] 11-25-2023 08:33-0400 Body height 177.8 cm [facility] 11-25-2023 08:33-0400 Body mass index (BMI) [Ratio] 53.4 kg/m2 [facility] 11-25-2023 08:33-0400 Body temperature 97.3 [degF] [facility] 11-25-2023 08:33-0400 Body weight 168.79 kg [facility] 11-25-2023 08:33-0400 Diastolic blood pressure 64 mm[Hg] [facility] 11-25-2023 08:33-0400 Heart rate 72 /min [facility] 11-25-2023 08:33-0400 SaO2% (BldA) [Mass fraction] 90 % [facility] 11-25-2023 08:33-0400 Systolic blood pressure 118 mm[Hg] [facility] 08-18-2023 08:28-0400 Body height 177.8 cm [facility] 08-18-2023 08:28-0400 Body mass index (BMI) [Ratio] 52.4 kg/m2 [facility] 08-18-2023 08:28-0400 Body weight 166.01 kg [facility] 08-18-2023 08:28-0400 Diastolic blood pressure 72 mm[Hg] [facility] 08-18-2023 08:28-0400 Heart rate 85 /min [facility] 08-18-2023 08:28-0400 SaO2% (BldA) [Mass fraction] 94 % [facility] 08-18-2023 08:28-0400 Systolic blood pressure 110 mm[Hg] [facility] 08-03-2021 10:25-0400 Blood Pressure Location [facility] 08-03-2021 10:25-0400 Diastolic blood pressure 67 mm[Hg] [facility] 08-03-2021 10:25-0400 Heart rate 87 /min [facility] 08-03-2021 10:25-0400 SaO2% (BldA) [Mass fraction] 95 % [facility]em [facility] 08-03-2021 10:25-0400 Systolic blood pressure 106 mm[Hg] [facility] 10-10-2019 00:30-0400 Pulse Oximetry 97 % Myah Valle [facility] 10-10-2019 00:15-0400 Pulse (Heart Rate) 92 /min [facility] 00:15-0400 Respiratory Rate 20 /min Myah Valle [facility] 10-09-2019 23:32-0400 BP Diastolic 71 mm[Hg] Myah Valle [facility] 10-09-2019 23:32-0400 BP Systolic 133 mm[Hg] Myah Valle [facility] 10-09-2019 22:37-0400 BMI (Body Mass Index) 52.23 kg/m2 Myah Valle [facility] 10-09-2019 22:37-0400 Body Temperature 98.2 [degF] Myah Valle [facility] 10-09-2019 22:37-0400 Body weight 167.83 kg Myah Valle [facility] 10-09-2019 22:37-0400 Height 177.8 cm Myahmoise Valle [facility] 12-10-2018 10:19-0400 BP Diastolic 78 mm[Hg] Angelo Rios [facility] 12-10-2018 10:19-0400 BP Systolic 132 mm[Hg] Angelo Rios [facility] 12-10-2018 10:19-0400 Pulse (Heart Rate) 78 /min [facility] 12-10-2018 10:19-0400 Pulse Oximetry 93 % [facility] Comment on above: ra 12-10-2018 10:19-0400 Respiratory Rate 20 /min [facility] 06-15-2018 11:07-0400 BMI (Body Mass Index) 54.39 kg/m2 [facility] 06-15-2018 11:07-0400 Body Temperature 97.81 [degF] [facility] 06-15-2018 11:07-0400 Body weight 176.9 kg [facility] 06-15-2018 11:07-0400 BP Diastolic 77 mm[Hg] [facility] 06-15-2018 11:07-0400 BP Systolic 152 mm[Hg] [facility] 06-15-2018 11:07-0400 Height 180.3 cm Debbie Erwin [facility] 06-15-2018 11:07-0400 Pulse (Heart Rate) 76 /min Debbie Erwin [facility] 06-15-2018 11:07-0400 Pulse Oximetry 96 % Debbie Erwin [facility] 06-15-2018 11:07-0400 Respiratory Rate 16 /min Debbie Yaneli [facility] 06-15-2018 10:19-0400 BMI (Body Mass Index) 55.51 kg/m2 [facility] 06-15-2018 10:19-0400 BP Diastolic 78 mm[Hg] [facility] 06-15-2018 10:19-0400 BP Systolic 136 mm[Hg] [facility] 06-15-2018 10:19-0400 Height 180.3 cm [facility] 06-15-2018 10:19-0400 Pulse (Heart Rate) 74 /min [facility] 06-15-2018 10:19-0400 Weight 180.53 kg [facility] 06-04-2018 09:11-0400 BP Diastolic 72 mm[Hg] [facility] 09:11-0400 BP Systolic 111 mm[Hg] [facility] 06-04-2018 09:11-0400 Height 180.3 cm [facility] 06-04-2018 09:11-0400 Pulse (Heart Rate) 75 /min [facility] 06-04-2018 09:11-0400 Pulse Oximetry 95 % [facility] 06-04-2018 09:11-0400 Respiratory Rate 12 /min [facility] 04-01-2017 09:22-0500 BMI (Body Mass Index) 53 kg/m2 [facility] Work Phone: 04-01-2017 09:22-0500 BP Diastolic 85 mm[Hg] Angelo Rios [facility] Work Phone: 04-01-2017 09:22-0500 BP Systolic 138 mm[Hg] [facility] Work [facility]: 04-01-2017 09:22-0500 [facility] 180.3 [facility] 04-01-2017 09:22-0500 Pulse (Heart Rate) 75 /min [facility] 04-01-2017 09:22-0500 Pulse Oximetry 94 % [facility] 04-01-2017 09:22-0500 Weight 172.37 kg Angelo Rios [facility] Work Phone: 11-25-2016 10:31-0400 BMI (Body Mass Index) 51.6 kg/m2 Angelo Rios [facility] Work Phone: 11-25-2016 10:31-0400 BP Diastolic 68 mm[Hg] Angelo Rios [facility] Work Phone: 11-25-2016 10:31-0400 BP Systolic 126 mm[Hg] Angelo Rios [facility] Work Phone: 11-25-2016 10:31-0400 Height 180.3 [facility] 11-25-2016 10:31-0400 Pulse (Heart Rate) 87 /min [facility] 11-25-2016 10:31-0400 Pulse Oximetry 95 % Angelo Rios [facility] Work Phone: 11-25-2016 10:31-0400 Respiratory Rate 16 /min [facility] 11-25-2016 10:31-0400 Weight 167.83 kg [facility] Encounters Encounter Date Encounter Type Care Provider Facility Start: 12-02-2024 End: 12-02-2024 ambulatory Jazz Hyde [facility] Work Phone: [facility] Work Phone: Start: 12-02-2024 End: 12-02-2024 Patient encounter procedure Jazz Hyde [facility] Work Phone: Start: 08-23-2024 End: 08-23-2024 ambulatory Jazz Hyde [employer] Work Phone: [facility] Work Phone: Start: 08-23-2024 End: 08-23-2024 Patient encounter procedure Jazz Mosesjuanmonica CHRIS [facility] Work Phone: Start: 06-28-2024 End: 06-28-2024 ambulatory [facility] Work Phone: Start: 06-28-2024 End: 06-28-2024 Patient encounter procedure [facility] Work Phone: Start: 04-28-2024 End: 04-28-2024 ambulatory Jazz Mosesjuanreemafaraz [facility] Work Phone: [facility] Work Phone: Start: 04-28-2024 End: 04-28-2024 Patient encounter procedure Jazz Mosesjuanreemafaraz [facility] Work Phone: [facility] Work Phone: Start: 04-27-2024 Patient encounter procedure Jazz Mosesjuarez [facility] Work Phone: [facility] Start: 03-30-2024 Patient encounter status Sarika Mosesjuarez [facility] Work Phone: [facility] Start: 03-30-2024 End: 03-30-2024 ambulatory Jazz Mosesjuarez [facility] Work Phone: [facility] Work Phone: Start: 03-30-2024 End: 03-30-2024 Patient encounter procedure Jazz Hyde [facility] Work Phone: [facility] Work Phone: Start: 02-10-2024 End: 02-10-2024 ambulatory Jazz Mary Ellen Facility:[facility] Start: 02-10-2024 End: 02-10-2024 Departed Referred Jazz Hyde [employer] Work Phone: [facility] [place] Work Phone: Start: 02-10-2024 End: 02-10-2024 Patient encounter procedure Jazz Hyde [facility] Work Phone: [facility] Work Phone: Start: 12-26-2023 End: 12-26-2023 ambulatory [facility] Work Phone: Start: 12-26-2023 End: 12-26-2023 Patient encounter procedure [facility] Work Phone: Start: 11-25-2023 End: 11-25-2023 ambulatory [facility] Work Phone: Start: 11-25-2023 End: 11-25-2023 Patient encounter procedure [facility] Work Phone: Start: 08-18-2023 End: 08-18-2023 ambulatory [facility] Work Phone: Start: 08-18-2023 End: 08-18-2023 Patient encounter procedure [facility] Work Phone: Start: 07-31-2023 Documentation procedure Laxmi Perez LPN [facility] Physicians Comment on above: Requesting Sleep Edmond dy Start: 12-23-2022 End: 12-24-2022 ambulatory Casey Morse Facility:[facility] Start: 12-23-2022 End: 12-23-2022 Patient encounter procedure Casey Morse III [facility] Start: 08-16-2022 End: 08-17-2022 ambulatory Franchesca Don Facility:[facility] Start: 08-16-2022 End: 08-16-2022 Patient encounter procedure Franchesca Don [facility] Start: 05-22-2022 End: 05-23-2022 ambulatory Jj C Link Facility:[facility] Start: 05-22-2022 End: 05-22-2022 Patient encounter procedure Jj C Link [facility] Start: 05-06-2022 End: 05-07-2022 ambulatory Jj C Link Facility:[facility] Start: 11-15-2021 End: 03-14-2022 Pre-admission assessment Skiptanika Sandyd [facility] Start: 10-03-2021 End: 10-03-2021 Patient encounter procedure Hansa Sandyd [facility] Start: 08-03-2021 End: 08-03-2021 Patient encounter procedure Hansa Sandyd [facility] Start: 07-03-2021 End: 07-28-2021 Pre-admission assessment Skiptanika Sandyd [facility] Start: 11-20-2020 Refill Angelo gonzalez MD Work Phone: [facility] Comment on above: Chronic obstructive pulmonary disease with acute exacerbation (HCC) Start: 08-18-2020 End: 08-18-2020 Refill Marianela Orozco LPN [facility] Comment on above: Chronic obstructive pulmonary disease with acute exacerbation (HCC) (Primary Dx) Start: 06-16-2020 End: 06-16-2020 ambulatory ANGELO RIOS [facility] Ambulatory Start: 06-16-2020 End: 06-16-2020 Phys/qhp telephone evaluation 11-20 min Angelo Rios MD Work Phone: [facility] Comment on above: Centrilobular emphys karoline (HCC) (Primary Dx); Obstructive sleep apnea; Tobacco abuse disorder Start: 06-08-2020 ambulatory [facility] Facility:[facility] Start: 05-30-2020 ambulatory ANGELO RIOS [facility] Ambulatory Start: 05-18-2020 ambulatory SELF SELF Facility:[facility] Start: 05-18-2020 Patient encounter procedure SELF SELF Facility:[facility] Start: 05-10-2020 End: 05-10-2020 Orders Only Yandy Craft Work Phone: [facility] Start: 03-12-2020 End: 03-12-2020 Refill Angelo Rios Work Phone: [facility] Start: 02-16-2020 End: 02-16-2020 ambulatory [facility] Ambulatory Start: 01-19-2020 ambulatory ANGELO RIOS [facility] Ambulatory Start: 12-28-2019 End: 12-28-2019 Documentation procedure Kim Rust [facility] Comment on above: nebulizer Start: 12-01-2019 End: 12-01-2019 Documentation procedure Kim Rust LPN [facility] Comment on above: tudorza denied Start: 11-30-2019 ambulatory [facility] Ambulatory Start: 10-21-2019 End: 10-21-2019 ambulatory [facility] Ambulatory Start: 10-10-2019 End: 10-10-2019 Patient encounter procedure MYAH VALLE [facility] Start: 10-10-2019 End: 10-10-2019 Emergency department patient visit [facility] Start: 10-09-2019 End: 10-10-2019 Emergency department patient visit Myah To Hinsdale Work Phone: [facility] Emergency Department Comment on above: COPD exacerbation (H CC) (Primary Dx); Chest pain, unspecified type Start: 03-11-2019 End: 03-11-2019 Documentation procedure Kim Rust [facility] Comment on above: bipap status Start: 02-26-2019 End: 02-26-2019 Documentation procedure Nga Serrano [facility] Start: 12-10-2018 End: 12-10-2018 Documentation procedure Kim Rust [facility] Comment on above: titration study orde red Start: 12-10-2018 End: 12-10-2018 Office outpatient visit 25 minutes Angelo Rios Work Phone: [facility] Comment on above: Centrilobular emphys karoline (HCC) (Primary Dx); Obstructive sleep apnea; Cigarette Smoker Start: 07-03-2018 End: 07-03-2018 Documentation procedure Davonte Hines [facility] Comment on above: CPAP supplies Start: 06-15-2018 End: 06-15-2018 Emergency department patient visit [facility] Start: 06-15-2018 End: 06-15-2018 Emergency department patient visit Debbie Erwin Work Phone: [facility] Comment on above: Pain, dental (Primar y Dx) Start: 06-15-2018 End: 06-15-2018 Patient encounter procedure Franky Steward Work Phone: [facility] Comment on above: ERRONEOUS ENCOUNTER- -DISREGARD (Primary Dx) Start: 06-04-2018 End: 06-04-2018 Office outpatient visit 25 minutes Angelo Rios Work Phone: [facility] Comment on above: Centrilobular emphys karoline (HCC) (Primary Dx); Obstructive sleep apnea; Tobacco abuse disorder Start: 04-01-2017 Office/outpatient vi sit, est, level 4 Angelo Rios Work Phone: [facility] Start: 04-01-2017 End: 04-01-2017 Ambulatory Angelo Rios Work Phone: [facility] Start: 11-25-2016 Office/outpatient vi sit, est, level 5 Angelo Rios Work Phone: [facility] Start: 09-11-2016 Ambulatory [facility] Procedures Date Procedure Procedure Detail Performing Clinician Start: 02-10-2024 Aerobic microbial culture Jazz Mary Ellen BAND SHOVER Work Phone: Start: 02-10-2024 Anaerobic microbial culture Jazz Mary Ellen BAND SHOVER Work Phone: Start: 02-10-2024 Gram stain microscopy J oli Mary Ellen BAND SHOVER Work Phone: Start: 10-10-2019 Assay of troponin [...] 10-26-2023 Influenza vaccination Influenza Vaccine (Season Ended) [facility] Start: 10-25-2022 COVID-19 Vaccine ( season) COVID-19 Vaccine () [facility] Start: 10-25-2020 Influenza vaccination Sequential Influenza Vaccine (#1) [facility] Start: 09-23-2020 Albumin DL <= 20 mg/L (U) [Mass/Vol] Urine Microalbumin [facility] Start: 09-23-2020 Microalbumin measurement, urine, quantitative Urine Microalbumin [facility] Start: 09-23-2020 Urine screening for protein Urine Microalbumin [facility] Start: 09-18-2020 End: 09-18-2020 Patient encounter procedure 09/18/2020 Office Visit Pulmonology Al Solomon, SHRINKING MACHINE OPERATOR [address] [place] [address] [phone] [facility] Start: 08-15-2020 Hemoglobin A1c measurement A1C [facility] Start: 06-16-2020 End: 06-16-2020 Office Visit 06/16/2020 Office Visit Pulmonology Angelo Rios MD [address] [place] [address] [phone] [facility] Start: 04-11-2020 HbA1c (Bld) [Mass fraction] A1C [facility] Start: 04-11-2020 Hemoglobin A1c measurement A1C [facility] Start: 02-16-2020 End: 02-16-2020 Telemedicine 02/16/2020 Telemedicine Pulmonology Al Solomon SHRINKING MACHINE OPERATOR [address] [place] [address] [phone] [facility] Start: 10-26-2019 Influenza vaccination Sequential Influenza Vaccine (#1) [facility] Start: 10-26-2019 Influenza vaccination given Sequential Influenza Vaccine (#1) [facility] Start: 10-21-2019 End: 10-21-2019 Office Visit 10/21/2019 Office Visit Pulmonology Al Solomon, GAYATRI [address] [place] [address] [phone] [facility] Start: 10-12-2019 Administration of herpes zoster vaccine Zoster Vaccines (1 of 2) [facility] Start: 10-12-2019 Screening for malignant neoplasm of colon [facility] Start: 06-17-2019 End: 06-17-2019 Office Visit 06/17/2019 Office Visit Pulmonology Angelo Rios MD [address] [place] [address] [phone] [facility] Start: 12-10-2018 End: 12-10-2018 Office Visit 12/10/2018 Office Visit Pulmonology Angelo Rios MD [address] [place] [address] [phone] [facility] Start: 10-25-2018 Influenza vaccination given [facility] Start: 08-26-2018 Glaucoma screening Diabetic Eye Exam [facility] Start: 08-26-2018 Ophthalmic examination and evaluation Ophthalmology Exam [facility] Start: 06-30-2018 End: 06-30-2018 Treatment 06/30/2018 Treatment Cardiac Rehabilitation Felisha Cisneros MD [address] [place] [address] [phone] [facility] Start: 06-15-2018 End: 06-15-2018 Office Visit 06/15/2018 Office Visit Cardiology Franky Steward MD [address] [facility] [address] [place] [address] [phone] [facility] Start: 10-25-2017 Influenza vaccination given SEQUENTIAL INFLUENZA VACCINE (#1) [facility] Start: 08-06-2017 Ambulatory 08/06/2017 Office Visit Pulmonology Angelo Rios MD [address] [place] [address] [phone] [facility] Start: 04-01-2017 Ambulatory 04/01/2017 Office Visit Pulmonology Angelo Rios MD [address] [address] [phone] [facility] Start: 10-25-2016 Influenza vaccination SEQUENTIAL INFLUENZA VACCINE (#1) [facility] Work Phone: Start: 11-17-2014 Low dose computed tomography of chest without contrast Low-dose CT Lung Cancer Screen [facility] Start: 11-17-2014 Screening for malignant neoplasm of lung Low-dose CT Lung Cancer Screen [facility] Start: 10-12-1987 Hepatitis C antibody, confirmatory test Hepatitis C Screening [facility] Start: 10-12-1987 Hepatitis C screening Hepatitis C Screening [facility] Start: 1985 COVID-19 Vaccine (1 of 2) COVID-19 Vaccine (1 of 2) [facility] Start: 1984 HIV screening HIV Screening [facility] Start: 1981 Adolescent depression screening assessment Depression Screening (PHQ9) [facility] Start: 1981 Depression screening using PHQ-9 (Patient Health Questionnaire 9) score [facility] Start: 10-12-1979 Diabetic foot examination [facility] Start: 10-12-1979 Microalbumin measurement, urine, quantitative Urine Microalbumin [facility] Start: 10-12-1979 Ophthalmic examination and evaluation Ophthalmology Exam [facility] Start: 10-12-1975 Pneumococcal Vaccine: Ped or At-Risk (1 of 2 - PCV) Pneumococcal Vaccine: Ped or At-Risk (1 of 2 - PCV) [facility] Start: 10-12-1975 Pneumococcal Vaccine: Ped or At-Risk (1 of 2 - PPSV23) Pneumococcal Vaccine: Ped or At-Risk (1 of 2 - PPSV23) [facility] Start: 1972 History and physical examination, annual for health maintenance Wellness Visit [facility] Start: 1969 Prostate specific antigen measurement PSA Level [facility] Start: 1969 Screening for malignant neoplasm of colon [facility] Start: 1969 Tetanus vaccination [facility] End: 11-25-2017 Complete PFT Complete PFT Routine Centrilobular emphysema (HCC) 1 Occurrences starting 11/25/2016 until 11/25/2017 [facility] Work Phone: Comprehensive metabo lic 2000 panel - Serum or Plasma [facility] Patient Education Low back pain in adults [facility] Work Phone: XR Chest 1 View XR Chest 1 View Imaging KEITH 10/09/2019 11:00 PM EDT [facility] Immunizations Immunization Date Immunization Notes Care Provider Fa vini 12-12-2019 influenza virus vacc ine, unspecified formulation Laxmi Perez LPN [facility] Payers Date Payer Category Payer Self-pay 2018 Medicaid [id number] 2018 Medicaid [place] [id number] 2018-Present [phone] [address] [place] [address] [id number] 2018 Medicare MEDICARE MEDICAR E PART A & B [id number] 2018-Present [place] xxxxxxxxxxx [id number] 2018 Medicare [id number] 2018 Medicare [id number] 2018 Medicare MEDICARE MEDICAR E PART A & B [id number] 2018-Present [phone] CGS [id number] PART A CLAIMS [address] [address] [place] [address] [id number] 2013 Medicaid [id number] 2013 Medicaid [id number] 1969 Unknown [id number] [id number] 1969 Unknown [id number] [id number] 1969 Unknown [id number] 2.16.840.1.637472.3.579.2.902 1969 Unknown [id number] [id number] 1969 Unknown [id number] 2.16.840.1.090665.3.579.2.90 1969 Unknown [id number] 2.16.840.1.417066.3.579.2.903 1969 Unknown [id number] 2.16.840.1.345567.3.579.2.903 1969 Unknown [id number] 2.16.840.1.625405.3.579.2.903 1969 Unknown [id number] 2.16.840.1.103135.3.579.2.903 1969 Unknown [id number] 2.16.840.1.418192.3.579.2.903 1969 Unknown [id number] 2.16.840.1.234694.3.579.2.594 1969 Unknown [id number] 2.16.840.1.883166.3.579.2.727 1969 Unknown [id number] 2.16.840.1.802993.3.579.2.727 1969 Unknown [id number] 2.16.840.1.234661.3.579.2.727 1969 Unknown [id number] 2.16.840.1.493526.3.579.2.727 Medicaid [id number] Medicare Medicare [id number] Unknown [id number] Social History Date Type Detail Facility Start: 11-25-2016 End: 08-18-2023 Tobacco smoking status NHIS Current every day smoker [facility] Start: 1970 Sex Assigned At Not on file [facility] Work Phone: Start: 06-15-2018 End: 06-16-2020 Cigarettes smoked current (pack per day) - Reported [facility] Start: 12-10-2018 End: 06-16-2020 Alcohol intake Current non-drinker of alcohol (finding) [facility] Start: 10-10-2019 End: 06-16-2020 Tobacco use and exposure Never used [facility] Exposure to SARS-CoV -2 (event) Yes [facility] Exposure to SARS-CoV -2 (event) Unable to assess [facility] Start: 06-16-2020 Sex Assigned At Male [facility] Start: 08-03-2021 Tobacco smoking status Heavy tobacco smoker (finding) [facility] Tobacco smoking status Never [facility] History of tobacco use Cigarette Smoker [facility] Start: 01-23-2018 Gender identity Identifies as male gender (finding) [facility] Start: 01-23-2018 Sexual orientation Heterosexual (finding) [facility] Start: 08-18-2023 End: 08-18-2023 Tobacco smoking status NHIS Smoker (finding) [facility] Start: 1970 Sex Assigned At Male [facility] Start: 03-30-2024 End: 06-28-2024 Sex Male (finding) [facility] Medical Equipment Procedure Code Equipment Code Equipment Origin al Text Equipment Identifier Dates USE 1 NEEDLE ONC E DAILY [id number] Start: 01-17-2020 daily as directed . [id number] Start : 12-27-2019 Blood Sugar Diagnostic (Accutrend Glucose Test Strips) strip Start: 02-13-2024 Lancets (Accu-Ch ek Softclix Lancets) misc Start: 03-30-2024 Pen Needle, Diab etic (Sure-Fine Pen Forbes) 31 gauge x 5/16 needle Start: 02-16-2024 Blood Sugar Diagnostic (Accutrend Glucose Test Strips) strip Start: 02-11-2024 End: 02-13-2024 Lancets (Accu-Ch ek Softclix Lancets) misc Start: 02-12-2024 End: 02-13-2024 Lancets (Accu-Ch ek Softclix Lancets) misc Start: 02-13-2024 End: 03-30-2024 Blood Sugar Diagnostic (Accutrend Glucose Test Strips) strip Start: 02-13-2024 Lancets (Accu-Ch ek Softclix Lancets) misc Start: 03-30-2024 Pen Needle, Diab etic (Sure-Fine Pen Forbes) 31 gauge x 5/16 needle Start: 02-16-2024 Blood Sugar Diagnostic (Accutrend Glucose Test Strips) strip Start: 02-11-2024 End: 02-13-2024 Lancets (Accu-Ch ek Softclix Lancets) misc Start: 02-12-2024 End: 02-13-2024 Lancets (Accu-Ch ek Softclix Lancets) misc Start: 02-13-2024 End: 03-30-2024 Blood Sugar Diagnostic (Accutrend Glucose Test Strips) strip Start: 02-13-2024 Lancets (Accu-Ch ek Softclix Lancets) misc Start: 03-30-2024 Pen Needle, Diab etic (Sure-Fine Pen Forbes) 31 gauge x 5/16 needle Start: 02-16-2024 Blood Sugar Diagnostic (Accutrend Glucose Test Strips) strip Start: 02-11-2024 End: 02-13-2024 Lancets (Accu-Ch ek Softclix Lancets) misc Start: 02-12-2024 End: 02-13-2024 Lancets (Accu-Ch ek Softclix Lancets) misc Start: 02-13-2024 End: 03-30-2024 Blood Sugar Diagnostic (Accutrend Glucose Test Strips) strip Start: 02-13-2024 Lancets (Accu-Ch ek Softclix Lancets) misc Start: 03-30-2024 Pen Needle, Diab etic (Sure-Fine Pen Forbes) 31 gauge x 5/16 needle Start: 02-16-2024 Blood Sugar Diagnostic (Accutrend Glucose Test Strips) strip Start: 02-11-2024 End: 02-13-2024 Lancets (Accu-Ch ek Softclix Lancets) misc Start: 02-12-2024 End: 02-13-2024 Lancets (Accu-Ch ek Softclix Lancets) misc Start: 02-13-2024 End: 03-30-2024 Blood Sugar Diagnostic (Accutrend Glucose Test Strips) strip Start: 02-13-2024 Lancets (Accu-Ch ek Softclix Lancets) misc Start: 03-30-2024 Pen Needle, Diab etic (Sure-Fine Pen Forbes) 31 gauge x 5/16 needle Start: 02-16-2024 [...] lower extremity acute August 23, 2024 3:21pm [facility] Work Phone: 1(328) 469-286802-04-2025 Evaluation note* Diagnosis Onset Date Resolution Status [...] 8: 23am Current smoker acute June 28, 8:23am Hyperlipemia acute June 28 8:23am Hypertension acute June 28 8:23am Screening for prostate cancer acute June 28, 2024 8:23am Sleep apnea acute June 28, 2024 8:23am Type 2 diabetes mellitus acute June 28, 2024 8:23am Venous insufficiency acute June 28, 2024 8:23am [facility] Work Phone: 1(220) 343-425312-17-2024 Evaluation note* Diagnosis Onset Date Resolution Status [...] (chroni c) (peripheral) acute March 30 8:19am [facility] Work Phone: 1(323) 637-788112-17-2024 Evaluation note* Diagnosis Onset Date Resolution Status [...] Dental abscess acute April 28, 2024 1:03pm [facility] Work Phone: 1(547) 912-647806-06-2024 History of Present illness Narrative* Laxmi Perez LPN - 07/31/2023 9:06 AM EDT Authorization for IAN fax rec'v from [place] [facility] requesting a copy of sleep study resultwith patient signature. SS result faxed at [phone]. documented in this [id number] Hospital Discharge instructions Follow Up Care 07/27/2021 11:50:22 With:Ragini SALINAS, Hansa Harvey, PUL, SHAJI Address: [address] [place] [address] Pulmonary Clinic (Heart & Vascular) [place] [address]- When: Unknown Comments:after his testing is completed [facility]06-25-2021 Miscellaneous Notes* Telephone Encounter - Marianela [...] to return call regarding fax received from [facility] for a refill on his Prednisone taper. documented in this [id number] History of Present illness Narrative* Angelo Rios MD - 06/16/2020 10:12 AM EDT Telephone Visit Via Phone Call Patient ID: Ector Rutldege is a 49 y.o. male on the phone for COPD Patient phone : [phone] This visit has been fully reviewed with the patient and verbal consent has been obtained. Dear Dr. Bernadine Verma MD, I had the pleasure of seeing our mutual patient, Ector Rutledge, who returns to see me in my clinic at [facility]. IMPRESSION/RECOMMENDATIONS 1. Mr. Rutledge [...] and has residual AHI of 1.2. His [place] Sleepiness Scale is 6/24 and overall he [...] He uses a full-face mask for interface. [place] Sleepiness Scale is 9/24. He continues to [...] of COPD (chronic obstructive pulmonary disease) ([facility]), Diabetes mellitus ([facility]), GERD (gastroesophageal reflux disease), and Hyperlipidemia. He [...] normal EF This note was dictated using Yoyocardon/ Dictation Software and may contain errors that were not corrected during editing. Provider location: [facility] [address] [facility] [address] Patient [address]: [address] [place] [address] I have spent 11-20 minutes with the [...] Sincerely, Angelo Rios MD documented in this [id number] History of Present illness Narrative* Kim Rust [...] Appointment Date:08/03/2021 10:15:00 AM Scheduled Provider:Ragini SALINAS, Hansa Harvey Location:FT.Pulmonary Clinic App[facility]ment [facility] Future Appointments Appointment Date:08/20/2021 07:30:00 AM Scheduled Provider: Location:FT.CARDIO Appointment Type:PUL Pulmonary Function Test (FT) Appointment Date:08/20/2021 08:30:00 AM Scheduled Provider: Location:FT.CARDIO Appointment Type:PUL Six Minute Walk Test ([facility]) [facility] Diagnosis Centrilobular emphysema (HCC)- Primary Obstructive sleep apnea Obstructive sleep apnea (adult) (pediatric) Tobacco abuse disorder [facility] Diagnosis Chronic obstructive pulmonary disease with acute exacerbation (HCC)- Primary [facility] Diagnosis Chronic obstructive pulmonary disease with acute exacerbation (HCC) [facility]* Diagnosis Onset Date Resolution Status Chronic obstructive pulmonary disease (COPD) acute Current smoker acute Hyperlipemia acute Type 2 diabetes mellitus acu [facility] Work Phone: Evaluation noteNo assessment information available [facility] Work Phone: Evaluation note* Diagnosis Onset Date Resolution Status Chronic obstructive pulmonary disease (COPD) acute COPD exacerbation acute Current smoker acute [facility]pertension [facility] Narrative No data available for this section [facility] No data available for this section [facility] No data available for this section [facility] (narrative)No reason for referral information [facility] Work Phone: Assessments Diagnosis Centrilobular emphysema (HCC [...] Documents on File Type Date Recorded Patient Halal Butcher Expl anation Advance Directives and Livin g Will 06/15/2018 11:51 AM Advance Directives and Livin g Will 06/15/2018 8:23 AM Documents on File Type Date Recorded Patient Halal Butcher Expl anation Advance Directives and Livin g [...] Documents on File Type Date Recorded Patient Halal Butcher Expl anation Advance Directives and Livin g [...] PM EDT CPAP supply order faxed to [facility], per patient request. F: [phone] Confirmation received. documented in this encounter* Angelo Rios MD - 12/10/2018 10:[address] Bernadine Verma MD, I had the pleasure of seeing our mutual patient, Ector Rutledge, who returns to see me in my clinic at [facility]. IMPRESSION/RECOMMENDATIONS 1. Mr. Rutledge [...] He uses a full-face mask for interface. [place] Sleepiness Scale is 9/24. He continues to [...] normal EF This note was dictated using Oz Sonotek/ Gimado Software and may contain errors that were not corrected during editing. documented in this encounter* Kim Rust LPN - 12/10/2018 1:57 PM EDT Order faxed to [facility] for titration study documented in this encounter* Kim Rust LPN - 03/11/2019 8:39 AM EST Received fax from Roger from [employer] that he spoke with patient on 03/03/19 [...] to see me in my clinic at [facility]. IMPRESSION/RECOMMENDATIONS 1. Mr. Rutledge [...] and uses a full-face mask for interface. [place] Sleepiness Scale is 8/24. He continues to [...] of COPD (chronic obstructive pulmonary disease) ([facility]), Diabetes mellitus (HCC), GERD (gastroesophageal reflux disease), [...] normal EF This note was dictated using Oz Sonotek/ ustymeation Software and may contain errors that were not corrected during editing. in this encounter* Kim Rust LPN - 12/28/2019 9:49 AM EST Patient left a vm that he dropped his nebulizer machine and it broke and he would like a rx for a new one. [facility] Sheila at [facility] and she will call patient. She states she can exchange it. documented in this encounter Discharge Instructions * Attachments The following attachments cannot be sent through Care Everywhere. * Chest Pain (Peruvian) * Chronic Health Conditions: Conserving Energy (Peruvian) * COPD: Asthma (Peruvian) documented in this encounter* Instructions* Debbie Erwin MD - 06/15/2018 Dental Clinics We recommend that you follow-up with the dentist as soon as possible (KEITH). If you do not have one, here are some options: [facility] [phone] [facility] Nathan. [facility] [phone] 4512 [facility] (Dental Clinic) [phone] 240 [facility] [address] By appointment only. $40 standard fee - adjustable per household income [facility] [phone] [facility] [phone] 3281 [facility] [phone] [address] [place], [place] [address] [facility] [phone] 1531 [facility] [phone] [address] [place] [address] [facility] [phone] [address] [place] [address] [facility] College of Dentistry [phone] [address] [facility] Family Practice [phone] [facility] [phone] [facility] Will take walk-in patients during certain hours of the day. [phone] [facility] Will take walk-in patients during certain hours of the day. * Attachments The following attachments cannot be sent through Care Everywhere. * Periodontal Conditions (Peruvian) * Smoking Cessation: Health Benefits: General Info (Peruvian) documented in this encounter Reason for Referral Status Reason Specialty Diagnoses / Procedures Referre d By Contact Referred To Contact Closed Devulapally, Angelo K., MD [address] [facility] [address] [place] [address] Chief Complaint and Reason for Visit Chief [...] 2024 8 :19am Medicare [place] March 30, 2024 8:19am Screening for [...] 2024 8 :19am Medicare [facility] March 30, 2024 8:19am Screening for [...] 8:23am Screening for prostate cancer June 28, 025 8:23am Sleep apnea June 28, 2024 8:23am Type 2 diabetes mellitus June 28, 2024 8 :23am Venous insufficiency June 28, 2024 8:23a m Chronic obstructive pulmonary disease (C OPD) August 23, 2024 3:21pm Left leg cellulitis August 23, 2024 3:21 pm Venous insufficiency (chronic) (peripher al) August 23, 2024 3:21pm Wound of left lower extremity August 23, 2024 3:21pm Chief Complaint Admit Date Shaky, Dizzy December 02, 2024 8: 51am Additional Source Comments (unrecognized sect ion and content) No Status Records FoundNo Status Records FoundNo Status Records FoundNo Status Records FoundNo Status Records FoundNo Status Records FoundNo Status Records FoundNo Status Records Found INFORMATION SOURCE (unrecogn ized section and content) DATE CREATED AUTHOR 08/20/2017 [facility] DATE CREATED AUTHOR AUTHOR'S ORGANIZ ATION 06/15/2018 [facility] DATE CREATED AUTHOR AUTHOR'S ORGANIZ ATION 10/21/2019 [facility] DATE CREATED AUTHOR AUTHOR'S ORGANIZ ATION 05/19/2020 [facility] DATE CREATED AUTHOR AUTHOR'S ORGANIZ ATION 06/18/2020 [facility] DATE CREATED AUTHOR AUTHOR'S ORGANIZ ATION 04/13/2021 [facility] DATE CREATED AUTHOR AUTHOR'S ORGANIZ ATION 03/30/2023 [facility] DATE CREATED AUTHOR AUTHOR'S ORGANIZ ATION 02/17/2024 [facility] ysician Group Reason for Visit (unrecogniz ed [...] secti on and content) Pt sent to [facility], room 641 B with all their belongings (i.e shoes, clothes, wallet, symbicort inhaler). All questions/concerns were answered/addressed for EMS. EMS was sent with pt packet consisting of transfer paperwork and location. EMS denies any further questions/concerns at this time. Pt and/or pt family member denies any further questions/concerns at this time. Pt sent via [facility] at this time. Pt sent with [...] file Gets together: Not on file Attends jew service: Not on file Active member of club or organization: Not on file Attends meetings of clubs or organizations: Not on file Relationship status: Not on file Other Topics Concern Not on file Social History Narrative Not on file Social history reviewed. Allergies: No Known Allergies Medications: Ector Rutledge Home Medication Instructions Prior to Surgery NEISHA:[id number] Printed on:10/10/19 0320 Medication Information Take last [...] center they attempted to get him to [facility] short stay unit. Speak with the provider [...] View Preliminary Result No acute cardiopulmonary disease. [employer] Workstation ID: [id number] MEDICATIONS ORDERED/GIVEN (if any, during ED visit): Medications ipratropium-albuteroL (DUO-NEB) 0.5-2.5 mg/3 ml nebulizer solution 3 mL (3 mL Inhalation Given 10/09/19 8892) sodium chloride (PF) (NS) flush 5 mL (has no administration in time range) And sodium chloride 0.9% (NS) (has no administration in time range) methylPREDNISolone sod suc(PF) (SOLU-medrol) Injection 125 mg (125 mg Intravenous Given 10/09/192258) aspirin chewable tablet 324 mg (324 mg Oral Given 10/09/192258) The clerk secretary of Health and Human Services and Chris Street, governor of the [facility], have declared a state of public [...] in the day. documented in this encounter [facility] ED Attending Note: NAME: Ector Rutledge 47 y.o. CSN: [id number] PCP: Bernadine Verma MD History: Chief Complaint: [...] side. He had an appointment with his multi operation forming machine setter who sent him down here for further [...] suspicion for deep space neck infection, RPA, FITNESS ASSISTANT, epiglottitis, Jason's angina based on today's evaluation. [...] LAFB QRS axis: left T Inversion: aVL MO Interval: 168 QRS Interval: 88 QT Interval: 433 Clinical impression: non-specific ECG documented in this encounter Care Teams (unrecognized sec tion and content) Lot Attendant Relationship Specialty Start Date End Date Bernadine Verma MD [address] [place] [address] PCP - General Internal Medicine 06/17/14 Al Solomon, SHRINKING MACHINE OPERATOR [address] [place] [address] Nurse Practitioner Pulmonology 10/21/19 Lot Attendant Relationship Specialty Start Date End Date Bernadine Verma MD PCP - General Internal Medicine 06/17/14 Al Solomon, SHRINKING MACHINE OPERATOR [address] [place] [address] Nurse Practitioner Pulmonology 10/21/19 Team Status: Active Member Role Status Dates Kiki Childress DO Primary Care Provider Active Team Status: Inactive Member Role Status Dates Kiki Childress DO Primary Care Provider Active Start: August 18, 2023 End: August 18, 2023 Jazz Hyde APRN COLD MILL SUPERVISOR-C Attending Provider Act prashant Start: August 18, 2023 End: August 18, 2023 Team Status: Inactive Member Role Status Dates Kiki Childress DO Primary Care Provider Active Start: November 25, 2023 End: November 25, 2023 Jazz Hyde APRN COLD MILL SUPERVISOR-C Attending Provider Act prashant Start: November 25, 2023 End: November 25, 2023 Team Status: Inactive Member Role Status Dates Kiki Childress DO Primary Care Provider Active Start: December 26, 2023 End: December 26, 2023 Jazz Hyde APRN COLD MILL SUPERVISOR-C Attending Provider Active Start: December 26, 2023 End: December 26, 2023 Team Status: Active Member Role Status Dates Jazz Hyde APRN COLD MILL SUPERVISOR-C Primary Care Provider Active Team Status: Inactive Member Role Status Dates Jazz Hyde APRN COLD MILL SUPERVISOR-Misty Primary Care Provider, Attending Provider Active Start: February 10, 2024 End: February 10, 2024 Team Status: Inactive Member Role Status Dates Jazz CHRIS Hyde COLD MILL SUPERVISOR-C Attending Provider Act prashant Start: February 10, 2024 End: February 10, 2024 Team Status: Inactive Member Role Status Dates Jazz CHRIS Hyde COLD MILL SUPERVISOR-C Primary Care Provider, Attending Provider Active Start: March 30, 2024 End: March 30, 2024 Team Status: Inactive Member Role Status Dates Jazz Hyde APRN COLD MILL SUPERVISOR-C Primary Care Provider, Attending Provider Active Start: April 28, 2024 End: April 28, 2024 Team Status: Inactive Member Role Status Dates Jazz Hyde APRN COLD MILL SUPERVISOR-C Primary Care Provider, Attending Provider Active Start: June 28, 2024 End: June 28, 2024 Team Status: Inactive Member Role Status Dates Jazz Hyde APRN COLD MILL SUPERVISOR-C Primary Care Provider Active Start: June 28, 2024 End: June 28, 2024 Jazz Hyde APRN COLD MILL SUPERVISOR-C Attending Provider Act prashant Start: June 28, 2024 End: June 28, 2024 Team Status: Inactive Member Role Status Dates Jazz Hyde APRN COLD MILL SUPERVISOR-C Primary Care Provider Active Start: August 23, 2024 End: August 23, 2024 Jazz Hyde APRN COLD MILL SUPERVISOR-C Attending Provider Act prashant Start: August 23, 2024 End: August 23, 2024 Team Status: Inactive Member Role Status Dates Jazz Hyde BAND SHOVER COLD MILL SUPERVISOR-C Primary Care Provider Active Start: December 02, 2024 End: December 02, 2024 Jazz Hyde APRN COLD MILL SUPERVISOR-C Attending Provider Act prashant Start: December 02, 2024 End: December 02, 2024 Goals (unrecognized section and content) Goals [...] BE BASED ON THE PRIMARY CLINICAL RECORDS. [facility]. provides no warranty or guarantee of the accuracy or completeness of information in this document.
--- OUTSIDE RECORDS SUMMARY | 2024-12-06 20:02 | XMS_ITS | Patient Health Record ---
Author Organization [facility] [place] Address [address] [place] [address] Care Team Providers Care Supervisor Kosher Dietary Service Name Role Phone Jazz Hyde CNP Primary Care Provider Anny Hussein Unavailable [phone] Jac Matthew Unavailable [phone] Allergies No Known Allergies Results Component Value Reference Range Notes CT Chest w/o contrast Reviewed date:02/09/2024 01:11:36 PM Interpretation: Performing Lab: Notes/Report: CT chest wo con Reviewed date:02/11/2024 07:41:06 AM Interpretation: Performing Lab: Notes/Report: Source Facility: [place] [address] CT Scan Report Signed Patient: ERNIE GUERIN MR#: [id number] : 1970 Acct:[id number] Age/Sex: 53 / M ADM Date: 02/06/24 Loc: CT Attending Dr: Jac Matthew D.O. Ordering Physician: Jac Matthew D.O. Date of Service: 02/06/24 Procedure(s): CT chest wo con Accession Number(s): [id number] cc: Franchesca Don NP [place] [address] Patient Name: ERNIE GUERIN MRN: [id number] date: 1970 Sex: M Assigned Patient Location: CT Current Patient Location: Accession/Order Number: [id number] Exam Date: 02/06/2024 08:01 Report Date: 02/09/2024 [...] Signed By: 02/09/24 1257 DD/ 1254 TD/TT: Commercial Loan Manager: Reason For Referral No Information Medications Medication SIG (Take, Route, Frequency, Duration) Notes Start Date End Date Status Lac-Hydrin Five 5 % 1 application Short Haul Driver ally Twice a day 09/04/2023 Active Lisinopril 5 MG TAKE 1 TABLET BY ABIGAIL TH EVERY DAY Oral; Duration: 90 Days Active Breztri Aerosphere 160-9-4.8 MCG/ACT 2 puffs Inhalation BID; Duration: 90 days Rinse after use; Dispense #3 inhalers Active metFORMIN HCl 1000 MG Oral; Duration: 90 Days Active glipiZIDE 10 MG Oral; Duration: 90 Days Active Ipratropium [place] 0.03 % Nasal; Duration: 90 Days Act prashant Victoza 18 MG/3ML as directed Subcutaneous 025 Active Klor-Con M20 20 MEQ Oral; Duration: 90 Days Active Ipratropium-Albuterol 0.5-2.5 (3) MG/3ML 3mL Inhalation QID; Duration: 90 days Active Montelukast Sodium 10 MG Oral; Duration: 90 Days Active Ventolin HFA 108 (90 Base) MCG/ACT 2 puffs as needed for SOB Inhalation Q4H; Duration: 90 days Active Atorvastatin Calcium 20 MG TAKE 1 TABLET BY MOUTH EVERY DAY Oral; Duration: 90 Days Active Mucinex 600 MG 1 tablet as needed Orally every 12 hrs Active Omeprazole 40 MG Oral; Duration: 90 Days Active Fluticasone Propionate 50 MCG/ACT Nasal; Duration: 90 Days Act prashant predniSONE 20 MG 3 tabs x 3 days, 2 t abs x 3 days, 1 tab x 3 days Orally Once a day; Duration: 9 03/31/2024 Not-Taking Immunizations Vaccine Route Administration Date Status [facility] Pfizer Syringe Pre -Filled 30 mcg/0.3 mL Unknown 11/16/2022 Administered Flu, Flucelvax (22249) 2 yrs +, single-dose syringe (6331-8539) Unknown 11/16/2022 Administered Social History Tobacco Use: [...] Problem Status W/U Status Risk Notes Problem Chronic obstructive pulmonary disease (02560185) Chronic obstructive pulmonary disease, unspecified (J44.9) Active confirmed Problem Polyneuropathy due to type 2 diabetes mellitus (313208574) Type 2 diabetes mellitus with diabetic polyneuropathy (E11.42) Active confirmed Problem Foot ulcer due to type 2 diabetes mellitus (6246168719001) Type 2 diabetes mellitus with foot ulcer (E11.621) Active confirmed Problem Chronic ulcer of foot (558069600) 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) Active confirmed Problem Long-term current use of 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 (847781650) 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 (Z79.51) Active confirmed Problem Morbid obesity (215091166) Morbid obesity (E66.01) Active confirmed Problem COPD - Chronic obstructive pulmonary disease (08245463) COPD (chronic obstructive pulmonary disease) (J44.9) Active confirmed Problem Obstructive sleep apnea syndrome (37215942) MICHA (obstructive sleep apnea) (G47.33) Active confirmed Problem Diabetes mellitus type 2 (disorder) (20746231) DM2 (diabetes mellitus, type 2) (E11.9) Active confirmed Problem Mental disorder caused by drug (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) Cigarette nicotine dependence with nicotine-induced disorder (F17.219) Active confirmed Problem Lung field abnormal (162321271) Right lower lobe lung mass (R91.8) Active confirmed Problem Body mass index 40+ - morbidly obese (216175156) Body mass index [BMI] 50.0-59.9, adult (Z68.43) Active confirmed Vital Signs Heart Rate 71 /min 08/11/2024 RA Activity/Res ting Temperature 96.8 degrees Fahrenheit 08/11/2024 RA A ctivity/Resting Respiratory Rate 20 /min 08/11/2024 RA Activity /Resting Oximetry 93 % 08/11/2024 RA Activity/Res ting Blood pressure diastolic 76 mm Hg 08/11/2024 RA Activity/Resting Height 71 in 08/11/2024 RA Activity/Res ting Blood pressure systolic 123 mm Hg 08/11/2024 RA A ctivity/Resting Weight 365.2 lbs 08/11/2024 RA Activity/Res ting BMI 50.93 kg/m2 08/11/2024 RA Activity/Res ting Encounters Encounter Location Date Provider Diagnosis [facility] [address] [place] [address] 03/31/[address] [facility] COPD (chronic obstructive pulmonary disease) J44.9 ; Cigarette nicotine dependence with nicotine-induced disorder F17.219 ; Morbid obesity E66.01 and Body mass index [BMI] 50.0-59.9, adult Z68.43 [facility] [address] [place] [address] 08/11/2024 Jac Matthew COPD (chronic obstructive pulmonary disease) J44.9 ; Right lower lobe lung mass R91.8 ; Cigarette nicotine dependence with nicotine-induced disorder F17.219 ; MICHA (obstructive sleep apnea) G47.33 ; DM2 (diabetes mellitus, type 2) E11.9 ; Morbid obesity E66.01 ; retirement (current) use of 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s Z79.51 and Body mass index [BMI] 50.0-59.9, adult Z68.43 [facility] [address] [place] [address] 02/10/2024 Jac Matthew COPD (chronic obstructive pulmonary disease) J44.9 ; Right lower lobe lung mass R91.8 ; Cigarette nicotine dependence with nicotine-induced disorder F17.219 ; MICHA (obstructive sleep apnea) G47.33 ; DM2 (diabetes mellitus, type 2) E11.9 ; Morbid obesity E66.01 ; 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 (PODIATRY) [address] [place] [address] [place] [address] 02/11/2024 Anny Valadez DM2 (diabetes mellitus, type 2) E11.9 Pulmonary [facility] [address] [place] [address] 03/25/2024 [facility] [address] [place] [address] 04/12/2024 [facility] [address] [place] [address] 09/06/2024 [facility] [address] [place] [address] 09/13/2024 [facility] Assessments Encounter Date Diagnosis (ICD Code) [...] hours later, he can then use DuoNeb. Gdtn-vc-zyur encounter performed with the patient to document continued need for a nebulizer with nebulized medications. -Current nebulized medications: DuoNeb -Symptom control: Better with use -Reported side or adverse effects: None -Recommendations: Continue DuoNeb. Renew/reorder/refi ll nebulizer and supplies. 03/31/2024 COPD (chronic obstructive pulmonary disease) (ICD-10 - J44.9) Opno-ei-pozf encounter performed with the patient to document [...] am monitoring. 03/31/2024 Cigarette nicotine dependence with nicotine-induce d disorder [...] voiced understanding. 02/10/2024 Cigarette nicotine dependence with nicotine-induce d disorder (ICD-10 - F17.219) Discussed cessation again [...] suggestions today. 08/11/2024 Cigarette nicotine dependence with nicotine-induce d disorder (ICD-10 - F17.219) Discussed cessation yet again. Continues to smoke 1ppd and voiced no desire to quit at this time after voicing understanding of the risks of ongoing smoking. 03/31/2024 Body mass index [BMI] 50.0-59.9, adult (ICD-10 - Z68.43) 08/11/2024 MICHA (obstructive sleep apnea) (ICD-10 - G47.33) Uxtz-vz-fxyh encounter performed with the patient to document continued need for PAP therapy. -Compliance was reviewed from 07/12/2024 - 08/10/2024 -Total days used: (100%) -Total of all days >4 hours of use: 30 (100%) -Current model, mode, & pressure: AirCurve 10 VAuto [id number] -Residual AHI: 0.2 -Air leak (median): 1.6L/min -Mask/harness fitting: No complaints -Sleep quality: Better with PAP use -Daytime hypersomnolence: Decreased with PAP use -Recommendations: Superb compliance with voiced benefit and no concerns expressed today. Continue CPAP @ current settings @ HS/naps. -Note: This glij-xl-oxpk visit comes with my authorization that the patient's DME may request to renew, reorder, and/or replace tubing, supplies, mask, and/or PAP device (if applicable). 02/10/2024 MICHA (obstructive sleep apnea) (ICD-10 - G47.33) Vuod-hl-vhzz encounter performed with the patient to document continued need for PAP therapy. -Compliance was reviewed from 01/10/2024 - 02/08/2024 -Total days used: (100%) -Total of all days >4 hours of use: 30 (100%) -Current model, mode, & pressure: AirCurve 10 VAuto [id number] -Residual AHI: 0.2 -Air leak (95th percentile): 49.8L/min -Mask/harness fitting: No complaints -Sleep quality: Sleeps well with limited nocturnal awakenings -Daytime hypersomnolence: Feels well-rested in the morning -Recommendations: Maintain superb compliance without any significant issues. He loves his machine and cannot sleep without it. MICHA has resolved with use. Continue CPAP @ current settings @ HS/naps. -Note: This tghc-cs-swds visit comes with my authorization that the [...] loss indicated: Decrease calories, increase activity. 02/10/2024 retirement (current) use of 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s (ICD-10 - Z79.51) Patient was counseled to rinse & gargle with water after inhaled corticosteroid use. 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 Patient voiced understanding. Wjlw-nw-duhi encounter performed with the patient to document continued need for PAP therapy. -Compliance was reviewed from 01/10/2024 - 02/08/2024 -Total days used: 30 (100%) -Total of all days >4 hours of use: 30 (100%) -Current model, mode, & pressure: AirCurve 10 VAuto [id number] -Residual AHI: 0.2 -Air leak (95th percentile): 49.8L/min -Mask/harness fitting: No complaints -Sleep quality: Sleeps well with limited nocturnal awakenings -Daytime hypersomnolence: Feels well-rested in the morning -Recommendations: Maintain superb compliance without any significant issues. He loves his machine and cannot sleep without it. MICHA has resolved with use. Continue CPAP @ current settings @ HS/naps. -Note: This ojnq-dp-lgws visit comes with my authorization that the [...] End Date [place] [address] [place] [address] [id number] Ernie Guerin Self - patient is the insured 9 MEDICAID [place] 2ND INS [address] [place], [place] [id number] Ernie Guerin Self - patient is the insured Medical (General) History Medical History History ICD Code COPD (chronic obstructive pulmonary dise ase) J44.9 Cigarette nicotine dependence with nicot ine-induced disorder F17.219 retirement (current) use of inhaled stero ids Z79.51 MICHA (obstructive sleep apnea) G47.33 Gastroesophageal reflux disease with eso phagitis without hemorrhage K21.00 DM2 (diabetes mellitus, type 2) E11.9 HTN (hypertension) I10 Allergic rhinitis J30.9 Morbid obesity E66.01 Right lower lobe lung mass R91.8 venous insufficiency
--- OUTSIDE RECORDS SUMMARY | 2024-12-06 20:02 | XMS_ITS | Clinical Summary ---
Author Organization [facility] Address [address] [place] [address] Care Team Providers Care Railroad Baggage Porter Name Role Phone Unavailable Primary Care Provider Unavailabl e Social History Tobacco Use Types Packs/Day Years Used Date Smoking Tobacco: Never Assessed Sex and Gender Information Value Date Recorded Sex Assigned at Not on file Legal Sex Male 4:04 PM EDT Gender Identity Not on file Sexual Orientation Not on file Plan of Treatment Not on file Insurance [address] [place] [address] MEDICARE [place]ID [place]
--- OUTSIDE RECORDS SUMMARY | 2024-12-06 20:02 | XMS_ITS | Encounter Summary ---
Author Organization [facility] Address [address] [place] [address] Care Team Providers Care Skiff Operator Name Role Phone Pato Denson MD Primary Care Provider [phone] Angelo Wyatt MD Unavailable [phone] Antoinette Jeong CITRUS FRUIT COLORER Unavailable [phone] Encounter Details Date Type Department Care Team (Late st Contact Info) Description 10/27/2015 Transcribe Orders [facility] [address] [place] [address] Elizabeth Mohan CMA Hemorrhoids, unspecified [...] documented as of this encounter Care Teams Skiff Operator Relationship Specialty Start Date End Date Pato Denson MD PCP - General Internal Medicine 06/17/14 Angelo Wyatt MD [address] [place] [address] PCP - CMS Attributed Provider 06/08/19 11/28/19 Antoinette Jeong, CITRUS FRUIT COLORER [address] [place] [address] Nurse Practitioner Pulmonology 10/21/19 documented as of this encounter
== END 2024-12-06 20:00 | disposition home or self-care (01) ==
PROVIDERS: PCP Family Medicine; Visit Provider Family Medicine
DX: G47.33 Obstructive sleep apnea (adult) (pediatric) (principal)
CPT/HCPCS: 95811

== ENCOUNTER 2024-12-28 09:30 | Outpatient (OUT) | payer MEDICARE, MEDICAID, SELFPAY ==
--- NOTE | 2024-12-28 09:28 | PM.WCHP ---
Wound Care H&P: HPI History of Present Illness Narrative: The patient is a 53-year-old gentleman with history of type 2 diabetes (last A1c unknown) who presents for routine nail and callus care. The patient admits to pain in his feet related to thick chronic calluses. He also has a painful bump on the posterior left calf that has been getting bigger over the past couple months. It has not produced any drainage. Meds Home Medications and Allergies Home Medications ?Medication ?Instructions ?Recorded ?Confirmed ?Type albuterol sulfate 90 mcg/actuation 2 puff inhalation Q4H PRN 08/02/23 08/02/23 History aerosol inhaler (Ventolin HFA) shortness of breath or wheezing atorvastatin 20 mg tablet 20 mg PO DAILY 08/02/23 08/02/23 History budesonide 160 mcg-glycopyr 9 2 inh inhalation DAILY PRN 08/02/23 08/02/23 History mcg-formot 4.8 mcg/actuation HFA shortness of breath inhaler (Breztri Aerosphere) dicyclomine 20 mg tablet 20 mg PO QID PRN abdominal pain 08/02/23 Rx #12 tabs fluticasone propionate 50 1 spray intranasal Q12H 08/02/23 08/02/23 History mcg/actuation nasal spray,suspension glipizide 10 mg tablet 10 mg PO DAILY 08/02/23 08/02/23 History guaifenesin 1,200 mg tablet, 1,200 mg PO BID 08/02/23 08/02/23 History extended release 12 hr (Mucus Relief ER) lisinopril 5 mg tablet 5 mg PO DAILY 08/02/23 08/02/23 History metformin 1,000 mg tablet 1,000 mg PO BID 08/02/23 08/02/23 History montelukast 10 mg tablet 10 mg PO DAILY 08/02/23 08/02/23 History omeprazole 40 mg capsule,delayed 40 mg PO DAILY 08/02/23 08/02/23 History release ondansetron 4 mg disintegrating 4 mg PO Q6H PRN nausea and 08/02/23 Rx tablet vomiting #12 tabs pantoprazole 40 mg tablet,delayed 40 mg PO DAILY #7 tabs 08/02/23 Rx release (Protonix) semaglutide 1 mg/dose (4 mg/3 mL) 1 mg subcut .1xweek 08/02/23 08/02/23 History subcutaneous pen injector (Ozempic) Allergies Allergy/AdvReac Type Severity Reaction Status Date / Time No Known Drug Allergies Allergy Verified 08/02/23 19:42 Exam Narrative: Exam Narrative: Derm: Skin is diffusely dry and flaky on the lower legs and feet. There are very thick calluses noted on both feet at the fifth metatarsal heads bilaterally, beneath the first metatarsal heads bilaterally, and on the right heel. No ulceration beneath the calluses. Hemosiderin staining is noted on the lower legs. Skin is shiny and scaly. There is a superficial 1cm round, firm, soft tissue nodule on the posterior left calf. No fluctuance or SOI. Vascular: Right dorsal pedis pulses 2/4. The left dorsal pedis pulse is nonpalpable. PT pulses are nonpalpable bilaterally. Capillary refills less than 3 seconds bilaterally. Superficial varicosities are noted on bilateral ankles. Foot is warm to the touch. There is 2+ nonpitting edema of both ankles. Digital hair is absent. Neuro: Monofilament testing revealed the patient was only able to detect 2/5 areas tested on the right foot and 3/5 areas tested on the left. Vibratory sensation is absent. Achilles deep tendon reflexes are absent bilaterally. MSK: No gross deformity. Strength and range of motion are within normal limits bilaterally Assessment and Plan Assessment and Plan (1) Tinea unguium: (2) Skin callus: (3) Type 2 diabetes mellitus with diabetic neuropathy, unspecified: (4) Diminished pulses in lower extremity: (5) Disorder of nail due to another disorder: Plan Routine nail and callus care performed without incident. Referral placed to dermatology for enlarging soft tissue mass on the right posterior calf. Acute Procedures Podiatry Nail Debridement Class B Findings Absent posterior tibial pulse: bilateral Advanced trophic changes as evidenced by any three of the following: decreased hair growth, nail changes (thickening), pigmentary changes (discoloring) and skin texture (thin or shiny) Absent dorsalis pedis pulse: left Class C Findings Claudication: No Temperature changes: No Edema: Yes Nail debridement paresthesia (abnormal spontaneous sensations in the feet): Yes Burning: Yes Qualifies If: Qualifiers If:: A patient qualifies for nail debridement if they have: 1 class A finding (Q7) 2 class B findings (Q8) OR 1 class B & 2 class C findings in addition to a primary condition (Q9) Nail Procedure Nail Procedure Time out: Yes Nail procedure: other ((1) Toenail debridement, (2) callus paring of 2-4 lesions bilateral feet) Number of affected nails: 10 Location (toes): left, right, first digit, second digit, third digit, fourth digit and fifth digit Procedure successful: Yes Patient tolerated procedure: well and no complications Additional comments: Toenails 1 through 10 were sharply debrided without incident and to the patient's satisfaction. He noted pain relief postprocedure. Calluses on both feet were pared using a 15 blade, dermal curette, and soft tissue nippers. The calluses pared were under the fifth metatarsal heads bilaterally and first metatarsal head on the left.
--- OUTSIDE RECORDS SUMMARY | 2024-12-28 09:33 | XMS_ITS | Clinical Summary ---
Author Organization [facility] Address [address] [place] [address] Care Team Providers Care Candy Waffle Assembler Name Role Phone Pato Denson MD Primary Care Provider [phone] Antoinette Jeong MARKER ASSEMBLER Unavailable [phone] Allergies No known active allergies Medications MedicationSigDispense QuantityRefillsLast FilledStart DateEnd DateStatus metFORMIN (GLUCOPHAGE) 1000 MG tablet Take 1,000 mg by mouth 2 (two) times a day with meals .08/16/2016Active acetaminophen (TYLENOL EXTRA STRENGTH) 500 MG tablet Take by mouth.Active atorvastatin (LIPITOR) 20 MG tablet 03/24/2017Active VICTOZA 2-ACOSTA 0.6 mg/0.1 mL (18 mg/3 mL) Pen Inject 1.2 mg under the skin daily .03/22/2017Active omeprazole (PRILOSEC) 40 MG capsule Take 40 mg by mouth daily .01/21/2018Active albuterol 90 mcg/actuation inhaler Inhale 2 (two) puffs every 6 (six) hours as needed for wheezing . 1 Inhaler Active montelukast (SINGULAIR) 10 mg tablet Take 1 (one) tablet (10 mg total) by mouth nightly . 30 tablet Active ammonium lactate (LAC-HYDRIN) 12 % lotion 08/11/2019Active glipiZIDE (GLUCOTROL) 5 MG tablet Take 5 mg by mouth 2 (two) times a day before meals .Active lisinopriL (PRINIVIL,ZESTRIL) 2.5 MG tablet Take 2.5 mg by mouth daily .Active potassium chloride SA (K-DUR,KLOR-CON) 20 MEQ tablet Take 20 mEq by mouth daily .Active mometasone-formoterol (Dulera) 200-5 mcg/actuation HFAA Inhale 2 (two) puffs (400 mcg total) 2 (two) times a day Rinse and spit after use . 1 Inhaler Active BD Ultra-Fine Mini Pen Needle 31 gauge x 05/09 Ndle USE 1 NEEDLE ONCE DAILY01/17/2020Active lancets 26 gauge Misc daily as directed .12/27/2019Active furosemide (LASIX) 40 MG tablet TAKE 1 (ONE) TABLET DAILY NEEDED FOR ONRRQVWF66/17/2020Active Alcohol Prep Pads PadM USE 1 PAD DAILY12/19/2019Active aclidinium bromide (Tudorza Pressair) 400 mcg/actuation AePB Inhale 1 (one) puff (400 mcg total) every 12 (twelve) hours . 1 each Active Additional Information Patient not taking.Reported on 06/16/2020 ipratropium-albuteroL (DUO-NEB) 0.5-2.5 mg/3 ml nebulizer Take 3 mL by nebulization every 6 (six) hours as needed for wheezing Dx: J44.9 . 270 mL Active Atrovent HFA 17 mcg/actuation inhaler INHALE 2 (TWO) PUFFS 2 (TWO) TIMES A DAY . 12.9 Inhaler ctive predniSONE (DELTASONE) 20 MG tablet Indications:Chronic obstructive pulmonary disease with acute exacerbation (HCC) TAKE 2 TABLETS BY MOUTH FOR 4 DAYS THEN 1 TABLET FOR 4 DAYS . 12 tablet 11/21/2020ctive ipratropium (ATROVENT) 21 mcg (0.03 %) nasal spray Instill 2 (two) sprays into each nostril 3 (three) times a day Follow-up needed. Please call officeto schedule. . 30 mL ctive Active Problems ProblemNoted DateDiagnosed DateAcute exacerbation of chronic obstructive pulmonary disease (COPD)10/10/2019PND (paroxysmal nocturnal dyspnea)01/23/2018 Cigarette mmqbuj1404/01/2017Centrilobular xgvzessor50/02/2017Obstructive sleep apnea11/25/2016Tobacco abuse ecsjecrj17/02/2017Bilateral edema of lower tiaxijxsx59/02/2017 Family History Medical HistoryRelationCommentsCancerMotherHypertensionMotherRelationStatus CommentsFatherAliveMotherDeceased Social History Tobacco UseTypesPacks/DayYears UsedDateSmoking Tobacco: Every UbpZxforvzogr852 Smokeless Tobacco: Never Tobacco Cessation:Ready to Q uit: Yes; Counseling Given: Yes Alcohol UseStandard Drinks/WeekCommentsNo0 (1 standard drink = 0.6 oz pure alcohol)Sex and Gender InformationValueDate RecordedSex Assigned at BirthNot on fileLegal EseIvwg4411/01/2013 12:57 PM EDTGender TuvepbziQxzv41/30/2018 1:04 PM ESTSexual FnatanlcrmkGryqivep90/30/2018 1:04 PM EST Last Filed Vital Signs Vital SignReadingTime TakenCommentsBlood Kcmboiog739/75010/10/2019 11:13 AM EDT Qgndh47284/16/2020 11:13 AM JFTSapccjjjhse66.8 ??C (98.3 ??F)10/10/2019 8:08 AM EDTRespiratory Zqci301310/10/2019 11:13 AM EDTOxygen Kwdqiqqdqr83%10/10/2019 11:13 AM EDTInhaled Oxygen Concentration--Rjcpkc201.1 kg (363 lb 15.7 oz)10/10/2019 3:56 AM IEYQwbkrj337.8 cm (5' 10 )10/09/2019 10:37 PM EDTBody Mass Index52.23 10/09/2019 10:37 PM EDT Plan of Treatment Health MaintenanceDue DateLast DoneCommentsCT Vegcrrdcbzgb50/18/1970Colonoscopy 1969Colorectal Cancer Screening/Vhghptivrf20/18/1970Fecal DNA1969 Fecal occult blood test (FOBT,FIT)1969PSA Level1969MMR Vaccines (1 of 1 - Standard series)1970Wellness Visit1972Depression Screening/Follow-Up (PHQ-2/9)1981HIV Inlfjdaqs42/18/1985Hepatitis C Yldyvsouz37/18/1988Hepatitis B Vaccines (1 of 3 - 19+ 3-dose series)1988 Tetanus/Diphtheria/Pertussis (1 - Tdap)1988Pneumococcal Vaccine: 50+ Years (1 of 1 - PCV)10/12/2019Zoster Vaccines (1 of 2)10/12/2019COVID-19 Vaccine (3 - 2024- season)5006/08/2020, 05/18/2020Influenza Vaccine (#1)2024 12/12/2019, 12/04/2018, 11/14/2016RSV Vaccines (1 - 1-dose 75+ series)2044 HIB VaccinesAged OutNo longer eligible based on patient's age to complete this topicHPV VaccinesAged OutNo longer eligible based on patient's age to complete this topicHepatitis A VaccinesAged OutNo longer eligible based on patient's age to complete this topicIPV VaccinesAged OutNo longer eligible based on patient's age to complete this topicMeningococcal ACWY VaccineAged OutNo longer eligible based on patient's age to complete this topicMeningococcal B VaccineAged OutNo longer eligible based on patient's age to complete this topicRotavirus Vaccines Aged OutNo longer eligible based on patient's age to complete this topic Insurance * Guarantor: Ector Rutledge AAccovaughn TypeRelation to PatientDate of BirthPhone Billing AddressPersonal/RyiyluUgux40/18/1971 [phone] (Home) [address] [place] [id number] Advance Directives For more information, please contact: [phone] * Full Code (Latest Code Status on File) Date ActivatedDate InactivatedComments10/10/2019 4:19 AM10/10/2019 4:28 PM Care Teams Team MemberRelationshipSpecialtyStart DateEnd Date Pato Denson MD PCP - GeneralInternal Medicine06/17/14 Antoinette Jeong, MARKER ASSEMBLER [address] [address] Nurse PractitionerPulmonology10/21/19
--- OUTSIDE RECORDS SUMMARY | 2024-12-28 09:33 | XMS_ITS | Clinical Summary ---
Author Organization [facility] Address [address] [place] [address] Care Team Providers Care French Weaver Name Role Phone Unavailable Primary Care Provider Unavailabl e Social History Tobacco UseTypesPacks/DayYears UsedDateSmoking Tobacco: Never AssessedSex and Gender InformationValueDate RecordedSex Assigned at BirthNot on fileLegal Sex Male09/04/2023 4:04 PM EDTGender IdentityNot on fileSexual OrientationNot on file Plan of Treatment Not on file Insurance
== END 2024-12-28 09:31 | disposition home or self-care (01) ==
LOC: WC 09:30
PROVIDERS: PCP Family Medicine; Visit Provider Physician Assistant
DX: B35.1 Tinea unguium (principal); L84 Corns and callosities; E11.40 Type 2 diabetes mellitus with diabetic neuropathy, unspecified; R09.89 Other specified symptoms and signs involving the circulatory and respiratory systems; L60.8 Other nail disorders
CPT/HCPCS: 11056; 11721

== ENCOUNTER 2025-01-05 10:41 | Outpatient (OUT) | payer MEDICARE, MEDICAID, SELFPAY ==
--- OUTSIDE RECORDS SUMMARY | 2024-05-10 09:20 | XMS_ITS ---
Author Organization [facility] in [place] Address [address] [place] [address] Care Team Providers Care Accounting Practice Manager Name Role Phone Jazz Hyde CNP Primary Care Provider U Anny Ibrahim Unavailable [phone] REASON FOR VISIT Nail Care Encounters Encounter Location Date Provider Diagnosis [facility] (PODIATRY) [address] [place] [address] [place] [address] 05/10/2024 Anny Valadez Plan Of Treatment No Information Progress Notes * Ernie GUERIN JrDOB:[birth year] (54 yo M)Acc No.[id number]:05/10/2024 UNLOCKED PROGRESS NOTE Nurse Visit Patient: Nicholas LAINEZTESSY Ernie Ramirez Jr :?JORGE L DeanCDOB:1970???Age:53 Y ???Sex:MaleDate:05/10/2024Phone:[phone]:[address] [place] [address], [address], [place], [id number]:Jazz Hyde CNP Subjective: * Chief Complaints: * 1 . Nail Care. * Medical History: Objective: * Vitals: Assessment: Plan: * Treatment: * * Electronic signature of Anny Valadez PA-C on 01/05/2025 at 10:48 AM ESTSign off status: PendingVisit Status:?CANC (Cancelled) * Provider: Sweta Valadez PA-C Date: 0 05/10/2024 Generated for Printing/Faxing/eTransmitting on:?01/05/2025 10:48 AM EST
--- OUTSIDE RECORDS SUMMARY | 2025-01-03 04:09 | XMS_ITS | Continuity of Care Document ---
Author Organization [facility] Address [address] [place] [address] Phone Care Team Providers Care Dean Of Men Name Role Phone Jazz Hyde APRN Primary Care Provider Jazz Hyde APRN Attending Provider Blanca Belcher DO Attending Provider Care Teams Patient Care Team Team Status: Active Member Role/Relationship Status Dates Jazz Hyde APRN LINING [employer]-C Primary Care Provider Active Visit Care Team Team Status: Inactive Member Role/Relationship Status Dates Jazz Hyde APRN [employer]ING [employer]-C Primary Care Provider Active Start: December 02, 2024 End: December 02, 2024Jazz Hyde APRN LINING CLOSER-CAttending ProviderActive Start: December 02, 2024 End: December 02, 2024 Visit Care Team Team Status: Active Member Role/Relationship Status Dates Jazz Hyde APRN [employer]ING [employer]-C Primary Care Provider Active Start: November Blanca Belcher DOAttending ProviderActiveStart: December 06, 2024 Patient Care Team Team Status: Inactive Member Role/Relationship Status Dates Jazz Hyde APRN [employer]ING [employer]-C Primary Care Provider Active Start: January 032024 End: January 03, 2025Jazz Hyde APRN LINING CLOSER-CAttending ProviderActive Start: January 03, 2025 End: January 03, 2025 Chief Complaint and Reason for Visit Chief Complaint Admit Date Shaky, Dizzy December 02, 2024 8: 51am Wellness, 6 month f/u January 03 8:21am Reason for Visit Admit Date Allergic rhinitis December 02, 2024 8: 51am Chronic obstructive pulmonary disease (C OPD) December 02, 2024 8:51am Current smoker December 02, 2024 8: 51am GERD (gastroesophageal reflux disease) O ctober 2024 8:51am Hyperlipemia December 02, 2024 8: 51am Hypertension December 02, 2024 8: 51am Sleep apnea December 02, 2024 8: 51am Type 2 diabetes mellitus December 02 8:51am Chronic obstructive pulmonary disease (C OPD) January 03, 2025 8:21am Allergies, Adverse Reactions, Alerts Allergen Type Severity Reaction Last Updated Verified Status No Known Allergies Allergy Unknown January 03, 2025 8:22amYesActive Social History Smoking Status Status Start Date End Date Date of Observa tion Smokes tobacco daily (finding) August 18, 2023 8:39am Observation Status Observation Response Date of Response Legal Sex Male (finding) Sex Assigned At [facility] 1970 Family History Relationship Condition Age at Onset Recorded Date/T cesar Not Specified Malignant neoplasm Unknown Problems Active Problems Problem Diagnosis/Recorded Date Onset Date Stat us Medicare annual wellness vis it, subsequent April 27, 2024 1:29pm Unknown Active Screening for prostate cancer March 30, 2024 8:57a m Unknown Active Screening for colon cancer March 30, 2024 9:14am U nknown Active Lower back pain February 10, 2024 11:19am Unknown Active Sleep apnea August 18, 2023 10:07am Unknown Acti ve Muscle spasm February 10, 2024 11:20am Unknown Active Type 2 diabetes mellitus August 18, 2023 7:37am Unknow n Active Wellness examination March 30, 2024 9:11am Unknown Active Hyperlipemia August 18, 2023 7:38am Unknown Activ e Venous insufficiency August 18, 2023 9:59am Unknown Active Chronic obstructive pulmonar y disease (COPD) August 18, 2023 7:37am Unknown Active Venous insufficiency (chroni c) (peripheral) March 30, 2024 8:49am Unknown Active GERD (gastroesophageal reflux disease) January 16, 2024 9:16am Unknown Active Allergic rhinitis December 02, 2024 7:28pm Unknown Active Hypertension August 18, 2023 7:38am Unknown Activ e Current smoker August 18, 2023 8:04am Unknown Act prashant Inactive/Resolved Problems Problem Diagnosis/Recorded Date Onset Date Stat us Left leg cellulitis August 23, 2024 2:37pm Unknown Resolved Wound of right lower extremity February 10, 2024 11: 25am Unknown Resolved Wound of left lower extremity August 23, 2024 2:37pm U nknown Resolved Cellulitis of lower extremity February 11, 2024 11:5 9am Unknown Resolved Gastritis August 18, 2023 10:31am Unknown Reso lved Right foot pain December 26, 2023 9:51am Unknown Resolved Foot ulcer due to secondary DM June 29, 2024 12:40pm U nknown Resolved Dental abscess April 28, 2024 1:20pm Unknown Res olved COPD exacerbation November 25, 2023 9:07am Unknown Resolved Medications Medication Status Dose Units Route Directions Qty Days Refills S tart Date Stop Date End Date Reason(s) Instructions Adherence Ipratropium-Albuterol 0.5 mg -3 mg(2.5 mg base)/3 mL solution for nebulization Discontinued 3 ML INHALATION EVERY 4-6 H OURS as needed for shortness of breath or wheezing 90 0June 2023 11:00pmJuly 2023 8:38cuDqbqpefgtr-Fvluzefi-Izbnysivlm (Breztri Aerosphere) 160-9-4.8 mcg/actuation HFA aerosol iciauyxOgvraz7LHO INHALATIONTwice daily5.9305July 2023 8:28amComplies with drug therapy Ipratropium-Albuterol 0.5 mg-3 mg(2.5 mg base)/3 mL solution for nebulization Ubbuoydaxvef5IXVWNVKLXBMKFIOSN 4-6 HOURS as needed for shortness of breath or hbtrotvk53674Imsz 1st, 2024 8:29amSeptember 2023 10:21amIpratropium- Albuterol 0.5 mg-3 mg(2.5 mg base)/3 mL solution for ddrgeuagcvesOgnrjabvozyo9GO INHALATIONEVERY 4-6 HOURS as needed for shortness of breath or bugwggep50176 November 04, 2023 10:21amSeptember 2023 10:35amIpratropium [place] 0.02 % hcztxbwjYfmuaqaqsosd3QNIDCWEMZRZPRysyw 6 hours as needed for shortness of breath or tllowqwx4128Pfpcrkvsm 2023 10:35amSeptember 2023 3:41pm Chronic obstructive pulmonary disease Chronic obstructive pulmonary disease, unspecifiedIpratropium-Albuterol 0.5 mg-3 mg(2.5 mg base)/3 mL solution for xsttldfrfojuYrgykefecwvg7LFNRCCJNHKFPxpiyh 6 to 8 hours as neededSeptember 2023 11:00pmSeptember 2023 7:03am Ipratropium-Albuterol 0.5 mg-3 mg(2.5 mg base)/3 mL solution for nebulization Zaykwlbgafnl3PUJSFJXOICARurkfd 6 to 8 hours as needed for shortness of breath or zstijzoo461Elyjfrmia 2023 7:02amOctober 2023 7:44amChronic obstructive pulmonary disease Chronic obstructive pulmonary disease, unspecifiedLiraglutide (Victoza 2-Josué) 0.6 mg/0.1 mL (18 mg/3 mL) pen vcqrsypvYtafnrhahhkw7XKGQMF.IRBCNLD34Eoamyows 2023 1:32pmFebruary 2024 8:46aminject 0.6mg subcutaneously once daily Albuterol Sulfate (Ventolin Hfa) 90 mcg/actuation HFA aerosol nwfiprgXkocmj9VIXS INHALATIONEvery 4 hours as needed for shortness of breath or wheezing6.75 January 16, 2024 9:12amChronic obstructive pulmonary disease Chronic obstructive pulmonary disease, unspecifiedComplies with drug therapy Atorvastatin 20 mg pwryftEvducqigjrwq06AUUVTqzde497Raxjcfac 22nd, 2024 9:12amMay 2024 7:42amHyperlipidemia Hyperlipidemia, unspecifiedFluticasone Propionate 50 mcg/actuation spray,zdcnvbnplcMjynjcliatqh7GTVXNTAMFKZHQKAQieqz184Kytbkanh 22nd, 2024 9:13am March 30, 2024 8:46amGlipizide 10 mg wigcjdNgvwwmtpvxea69FCQKMefvf January 16, 2024 9:13amDecember 2023 8:08amType 2 diabetes mellitus Type 2 diabetes mellitus without complicationsIpratropium-Albuterol 0.5 mg-3 mg(2.5 mg base)/3 mL solution for jfjrsfrecwfbKeozsq6RFJWKPGOZWALpolvq 6 to 8 hours as needed for shortness of breath or jdofxigt889904Znjiefqo 2023 9:13amChronic obstructive pulmonary disease Chronic obstructive pulmonary disease, unspecifiedComplies with drug therapy Lisinopril 5 mg poxglfWmhctpsyoiic8VAFWZkywf031Zobjcgxn 2023 9:14amMay 2024 7:42amHypertension Essential (primary) hypertensionMetformin 1,000 mg zuqmkoYcrwnxteowsd1383PEQH Twice gcsfy949Mjblywpd 2023 9:14amMarch 2024 6:56amType 2 diabetes mellitus Type 2 diabetes mellitus without complicationsMontelukast 10 mg tablet Tyrgcypytibz97IQZFHdddd472Lqoivdjb 2023 9:15amApril 2024 6:55am Chronic obstructive pulmonary disease Chronic obstructive pulmonary disease, unspecifiedOmeprazole 40 mg capsule,delayed release(DR/EC)Zuxryndfmsut38TUHJCgicb803Xeczjxxd 2023 9:15amMay 2024 7:42amGastroesophageal reflux disease Gastro-esophageal reflux disease without esophagitisPotassium Chloride (Klor-Con M20) 20 mEq tablet,ER particles/thspothgNlhtjyvyzgrg77VLGNEShbtm528Gqkzmixn 2023 9:16amJune 2024 3:34pmGlipizide 10 mg rieqbbFfcdfjuvfngk02WKPK Twice obrwf969Owwtupsi 2023 8:08amMay 2024 7:42amType 2 diabetes mellitus Type 2 diabetes mellitus without complicationsBlood-Glucose Meter (Accu-Chek Guide Glucose Meter) miscActive0.Lbdmg49Movucifv 18th, 2024 12:00amAs directed Blood Sugar Diagnostic (Accutrend Glucose Test Strips) stripDiscontinued0.Route 2023 12:00amDe2023 10:07amType 2 diabetes mellitus Type 2 diabetes mellitus without complications check blood sugar 2 times per dayAs directedLancets (Accu-Chek Softclix Lancets) miscDiscontinued0.Vsmed5657Itildscz 19th, 2024 12:00amDecemb2023 10:07amCheck blood sugar 2 times dailyAs directedAlcohol Swabs (Bd Alcohol Swabs) pads, dqnuogzqvUlexhznxmmpp4WVRZRSU.UDT0088Spcphkri2023 12:00am March 30, 2024 8:54ampad topically BID;Blood Sugar Diagnostic (Accutrend Glucose Test Strips) stripActive0.Zbzuo470Bgqwubpu 20th, 2024 10:05amType 2 diabetes mellitus Type 2 diabetes mellitus without complications check blood sugar 1 time per dayAs directedLancets (Accu-Chek Softclix Lancets) miscDiscontinued0.2023 10:06amFebruary 2024 8:53am Type 2 diabetes mellitus Type 2 diabetes mellitus without complications Check blood sugar 1 time per dayAs directedPen Needle, Diabetic (Sure-Fine Pen [place]) 31 gauge x 5/16 needleActive0.2023 12:00am Check blood sugar once dailyAs directedMetformin 1,000 mg tabletDiscontinued0 .ROUTE.QNDLEHN7772Ggofv 2024 6:56amSeptember 2024 6:30amType 2 diabetes mellitus Type 2 diabetes mellitus without complicationsTAKE 1 TABLET BY MOUTH TWICE A DAY Montelukast 10 mg yoglrqJmwuflctevpu60VZYYAwzwk162Vvidi 2024 6:55amOctober 2024 8:22amChronic obstructive pulmonary disease Chronic obstructive pulmonary disease, unspecifiedIpratropium [place] 21 mcg (0.03 %) spray,non-avgsmriBdirbkghqscw5OQGBNZRVADSQPPMPiviq qkbnx073VoyJune 28, 2024 6:53amAugust 2024 7:06amChronic obstructive pulmonary disease Chronic obstructive pulmonary disease, unspecifiedadminister into each nostril Ammonium Lactate 12 % xxcwdIkuqfapbvaan5JESCGPUCNTMKSXwntf daily as needed for dry yytl4102Bfs 2024 6:42amJune 2024 9:40amChronic venous insufficiency Venous insufficiency (chronic) (peripheral)Potassium Chloride (Klor-Con M20) 20 mEq tablet,ER particles/bvtkoutqCesbpinjsmfc26EGABTMnhvp114Gepp 2024 3:34pmNov2024 8:49amAmmonium Lactate 12 % xetzxBijfcx8YXYJFCLTNDXAR Twice daily as needed for dry dpxs7322Npbm 2024 9:40amChronic venous insufficiency Venous insufficiency (chronic) (peripheral)Complies with drug therapyIpratropium [place] 21 mcg (0.03 %) spray,non-aerosolDiscontinued0.ROUTE.KWBNYOS277Bgumhp 2024 7:06amOctober 2024 6:26amChronic obstructive pulmonary disease Chronic obstructive pulmonary disease, unspecifiedUSE 2 SPRAYS IN EACH NOSTRIL TWICE A DAYGlipizide 10 mg bjesizEwpgpsbmncma22QGCQUfkbe hzqbo592Gfwctf 2024 6:24amNovember 2024 7:26amType 2 diabetes mellitus Type 2 diabetes mellitus without complicationsMetformin 1,000 mg tabletActive0 .ROUTE.BXVTAQO1603Utufalnxb 2024 6:30amType 2 diabetes mellitus Type 2 diabetes mellitus without complicationsTAKE 1 TABLET BY MOUTH TWICE A DAY Complies with drug therapyZolpidem (Ambien) 10 mg wdrweaNknytdrhwzxc17XVUJEtavy at bedtime as needed for fdewi060JjayybgDecember 05, 2024 11:00pmP[facility] 8:49amSleep apnea Sleep apnea, unspecifiedtake prior to sleep studyAlcohol Swabs (Bd Alcohol Swabs) pads, rotcwhjxuNbbgsy9UTBPOKU.BZY3451Ugkmqtj 2024 6:28amType 2 diabetes mellitus Type 2 diabetes mellitus without complicationspad topically BID;Complies with drug therapyIpratropium [place] 21 mcg (0.03 %) spray,non-aerosolActive0.ROUTE .VOFZZXB580Buhklkh 2024 6:26amChronic obstructive pulmonary disease Chronic obstructive pulmonary disease, unspecifiedUSE 2 SPRAYS IN EACH NOSTRIL TWICE A DAYComplies with drug therapyGlipizide 10 mg zztvcmJhgfos87FDSXHaekr ruixu112EfvkfjdqJanuary 03, 2025 7:26amType 2 diabetes mellitus Type 2 diabetes mellitus without complicationsComplies with drug therapy Ipratropium-Albuterol 0.5 mg-3 mg(2.5 mg base)/3 mL solution for nebulization Hvsmwsxbrncv3EDKGOKUUGDPOllocu 6 to 8 hours as needed for shortness of breath or wpsmvwsf126425Zhapezn 2023 7:44amOctober 2023 7:45amChronic obstructive pulmonary disease Chronic obstructive pulmonary disease, unspecifiedIpratropium-Albuterol 0.5 mg-3 mg(2.5 mg base)/3 mL solution for hogagmzewqzwLrzkpsqgpvxb3XNUWMIJYXLJAqiqwb 6 to 8 hours as needed for shortness of breath or olfeajct641330Fcgcqdw 2023 7:44amNovember 2023 9:16amChronic obstructive pulmonary disease Chronic obstructive pulmonary disease, unspecifiedPrednisone 10 mg tablet Enpsmwoszpwk22SGFDplbnq060Ybgdadyne 30th, 2024 11:00pmDecember 26, 2023 8:21am Take 40 mg for 2 days, 30 mg for 2 days, 20 mg for 2 days, 10 mg for 2 days, 1/2 tablet for 2 daysLiraglutide (Victoza 2-Josué) 0.6 mg/0.1 mL (18 mg/3 mL) pen tcqqxfskEpdtmhlatdkh5DAEVPM.KAACQZH01Hjcqgzrgm 30th, 2024 11:00pmDecember 26, 2023 8:21aminject 0.6mg subcutaneously once dailyPrednisone 10 mg tablet Rbqypwvirbaf49FGEXlguoc613Fbcuibzd 1st, 2024 8:20amDecemb2023 11:17am Take 40 mg for 2 days, 30 mg for 2 days, 20 mg for 2 days, 10 mg for 2 days, 1/2 tablet for 2 daysLiraglutide (Victoza 2-Josué) 0.6 mg/0.1 mL (18 mg/3 mL) pen mjnegqjnRsbukbjvgfaq3WHCMEY.HOSCSAE69WppnvaivDecember 26, 2023 8:20amNovemb2023 1:32pminject 0.6mg subcutaneously once dailyPotassium Chloride (Klor-Con M20) 20 mEq tablet,ER particles/dguinumzDvmezf67FKZILGrtxv902Kjhmiypp 10th, 2025 8:49amComplies with drug therapyMontelukast 10 mg oycbfxAerkub85PZNCVpazp894 December 02, 2024 8:20amChronic obstructive pulmonary disease Chronic obstructive pulmonary disease, unspecifiedComplies with drug therapy Atorvastatin 20 mg rhhivsJnplzg82RMVXCswrc506Zhgkmzf 2024 8:20am Hyperlipidemia Hyperlipidemia, unspecifiedComplies with drug therapyLiraglutide (Victoza 2-Josué) 0.6 mg/0.1 mL (18 mg/3 mL) pen injectorActive1.0PSBVVEWZTawty08065Twyycww 2024 8:21amType 2 diabetes mellitus Type 2 diabetes mellitus without complicationsComplies with drug therapy Lisinopril 5 mg bxotmfFzeesz5WWDJSuwwf327Xnhjgkk 2024 8:21amHypertension Essential (primary) hypertensionComplies with drug therapyOmeprazole 40 mg capsule,delayed release(DR/EC)Ghlcql75QNRXVyhiu899Eissyue 2024 8:21am Gastroesophageal reflux disease Gastro-esophageal reflux disease without esophagitisComplies with drug therapy Glipizide 10 mg eurscgEeyxfdfxjhwa44QVBUJldow dailyJune 2023 11:00pm January 16, 2024 9:16amFluticasone Propionate 50 mcg/actuation spray,zhfpsqxdhpCrsmpkfibnky5ZZICABTHQHQHYUWHzkomGsif 2023 11:00pmJanuary 16, 2024 9:74omRubhazzjxo-Aqrsnvca-Wzsesbsvai (Breztri Aerosphere) 160-9-4.8 mcg/actuation HFA aerosol bwmdltpAzzoaqikfipb6EDOZFXAVGTDJHXnwor dailyJune 2023 11:00pmJuly 2023 8:29amSemaglutide (Ozempic) 1 mg/dose (4 mg/3 mL) pen wfkipuwfLwomaclhohjj1AJUZRPFYxyema weekJun2023 11:00pmJune 2023 7:50amMetformin 1,000 mg mwyzfcCofktrbttjbb4771ZZUIHciel dailyJune 2023 11:00pmJanuary 16, 2024 9:16amPotassium Chloride (Klor-Con M20) 20 mEq tablet,ER particles/wbkmxmbiEdrsqkhpvuve60WDLUHFcyliYogg 2023 11:00pm January 16, 2024 9:16amIpratropium [place] 21 mcg (0.03 %) spray,non-aerosol Uxxqwnbveoyq8BMFMPRWEOIVPHJECgucn times daily as neededAt[facility]20[facility] 11:00pm August 25, 2023 6:58amAtorvastatin 20 mg pgfjtkClzkoodrzdeu75KEAYZdaihDmeo 2023 11:00January 16, 2024 9:16amMontelukast 10 mg srtvgwDhkvspfzrxzf25RZVJ DailyAugust 17, 2023 11:00January 16, 2024 9:16amLisinopril 5 mg tablet Kcdencltracw4ZRIKKuybpSxoz 23rd, 2024 11:00[facility]2023 9:16am Omeprazole 40 mg capsule,delayed release(DR/EC)Srturzbcyrds36LIZATwbyuHmln 23rd, 2024 11:00January 16, 2024 9:16amAlbuterol Sulfate (Ventolin Hfa) 90 mcg/actuation HFA aerosol fbloatnZljvzjpuouzr3DWUSUYJMWKCUBZXgukd 4 hours as neededAugust 17, 2023 11:00January 16, 2024 9:16amPrednisone 10 mg tablet Dzsqapfcfult96UPYTWf DirectedAtrium Health [facility]2023 11:00pmAugust 18, 2023 7:53amsee taper instructionsDulaglutide (Trulicity) 0.75 mg/0.5 mL pen injector Discontinued0.75MGSUBCUTevery week2.5300Jun2023 11:00pmOct2023 7:38amType 2 diabetes mellitus Type 2 diabetes mellitus without complicationsDicyclomine 20 mg tablet Zimycsxhxhxh01QPYGOyoui times areqa46661Dshx 23rd, 2024 11:00pmOct2023 7:38amGastritis Gastritis, unspecified, without bleedingLiraglutide (Victoza 2-Josué) 0.6 mg/0.1 mL (18 mg/3 mL) pen injectorDiscontinued1.3PVFIYRUCQyvus75572Swrzcgzb 2024 8:45amMay 2024 7:41amType 2 diabetes mellitus Type 2 diabetes mellitus without complicationsIpratropium [place] 21 mcg (0.03 %) spray,non-csgdcgeUfuqkezyvyfd2UCIZYWQKBJGLPRGTavdy olecq408Ztjfhlum 2024 12:00amMay 2024 6:53amChronic obstructive pulmonary disease Chronic obstructive pulmonary disease, unspecifiedadminister into each nostril Ammonium Lactate 12 % nvtyvLhcanzkchxlc7PLCSUALZYBXTNYdety daily as needed for dry hlwi6579Easmkqwr 2024 12:00amMay 2024 6:42amChronic venous insufficiency Venous insufficiency (chronic) (peripheral)Lancets (Accu-Chek Softclix Lancets) miscActive0.Ytmoq2468Fpoaknyz 2024 8:53amType 2 diabetes mellitus Type 2 diabetes mellitus without complications Check blood sugar 1 time per dayAs directedAlcohol Swabs (Bd Alcohol Swabs) pads, mnvhcdjfiDuqjhprxdzgn0UPVOOWL.BWI3400Xgujuehf 2024 8:54amOctober 2024 6:29amType 2 diabetes mellitus Type 2 diabetes mellitus without complicationspad topically BID;Doxycycline Monohydrate 100 mg gfrezwUgqkzekrwbyi979PPQWItxlt ljqgk11089Mmtptxly 2023 12:00amFebruary 2024 8:46amTizanidine 2 mg bwqyblVlqnxgxugsxh0RPSOXhlup 8 hours as needed for muscle kzkipzhemn75263Yzgbzeow 2023 12:00amJune 2024 2:25pmLow back pain Muscle spasm Low back pain, unspecified Other muscle spasmLiraglutide (Victoza 2-Josué) 0.6 mg/0.1 mL (18 mg/3 mL) pen injectorDiscontinued1.7GTWTXGMNYthhu14440Exi 5th, 2025 7:40amOctober 2024 8:22amType 2 diabetes mellitus Type 2 diabetes mellitus without complicationsAtorvastatin 20 mg tablet Cdzzhpgeauoj54DCOSTgnps451Pms 5th, 2025 7:41amOctober 2024 8:22am Hyperlipidemia Hyperlipidemia, unspecifiedGlipizide 10 mg zgadxcSfmpfqhxmklh34DAKQEsxoc daily90 1May 2024 7:41amAugust 2024 6:24amType 2 diabetes mellitus Type 2 diabetes mellitus without complicationsLisinopril 5 mg tabletDiscontinued 1HASHJnsuk385Nzr 5th, 2025 7:41am[facility] 2024 8:22amHypertension Essential (primary) hypertensionOmeprazole 40 mg capsule,delayed release(DR/EC) Vciacyknniot19OOZKIcopb398Vzj 5th, 2025 7:41amOctrussell county hospital 2024 8:22am Gastroesophageal reflux disease Gastro-esophageal reflux disease without esophagitisAmoxicillin-Pot Clavulanate 875-125 mg gkrxulUbegrjvgjjto4CLDHPEauqx ffznr43735Ioeyv 2024 12:00amMay 2024 7:30amDental abscess Periapical abscess without sinusCephalexin 500 mg snburytBpuupaigeffq492WDNQ Three times agmdw15519Kbbu 29th, 2025 11:00pmM[facility] 20[facility] 7:58amChronic venous insufficiency Wound of left lower extremity Cellulitis of left lower extremity Venous insufficiency (chronic) (peripheral) Unspecified open wound, left lower leg, initial encounter Cellulitis of left lower limbGuaifenesin (Mucus Relief Er) 1,200 mg tablet extended release 26wwTwovvk3744CEKMJbbsi at iehosht41443Qegw 29th, 2025 11:00pm Chronic obstructive pulmonary disease Chronic obstructive pulmonary disease, unspecifiedComplies with drug therapy Relevant Diagnostic Tests and/or Laboratory Data Laboratory Results Test Collection Date/Time Result Date/Time Result Interpretation Reference Range Result Comment Performing Site Bedside Hemoglobin A1c January 03, 2025 8:40am Nove [facility] 2024 8:40am 7.2 % Vital Signs Vital Reading Result Reference Range Collection Date/Time Height 70 [in_i] December 02, 2024 7:30gyNixzry383.10 kgM[facility] 2024 7:52amBody Temperature 96.1 [degF]97.6-99.0[facility] 2024 7:52amHeart Rate84 /pwi91-731Xvlllbz 2024 7:52amOxygen saturation by Pulse nbrfydyy68 %95-100[facility] 2024 7:52am BP Hlwopihd276 mm[Hg]100-140[facility] 2024 7:52amBP Aqgkjsorm07 mm[Hg]60-100 December 02, 2024 7:52amBMI (Body Mass Index)52.2 kg/y6Vwgdubk 2024 7:52am Ewdkob11 [in_i]January 03, 2025 8:82bvDgxwqp217.56 kgPending [facility] To [facility]2024 8:24amBody Qeoqxkbdptw29.8 [degF]97.6-99.0January 03, 2025 8:24amHeart Rate79 /lam68-274AzkkregwJanuary 03, 2025 8:24amOxygen saturation by Pulse dvbhicfz28 % 95-100January 03, 2025 8:24amBP Taglbexp715 mm[Hg]100-140January 03, 2025 8:24amBP Wlzvtzbhs49 mm[Hg]60-100January 03, 2025 8:24amBMI (Body Mass Index) 52.3 kg/s7Zyyvdauj2024 8:24am Advance Directives Advance Directive Response Recorded Date/ Time Advance Directives No August 17 7:25am Insurance Providers Guarantor Ernie Rutledge JR Address [address] [facility] [address]Riwicuj Info.Home Phone: Payer Group Member ID Coverage Type Subscriber Relationship to Subscriber Effective Date Expiration Date Medicaid [id number] Behnke , JR Id: [id number] [address] [place], [place] [address] [facility] [address] Home Phone: Email: [email or web address] [facility] [id number] Rutledge JR Id: [id number] [address] [place], [place] [address] [facility] [address] Home Phone: Email: [email or web address] Encounters Encounter Location(s) Arrival/Admit Date Discharge/Departure Date Discharge/Departure Disposition Provider(s) Departed Physician/ Provider Office Visit -[facility] December 02, 2024 8:51am December 02, 2024 9:28am Discharged to home care or self care (routine discharge) Jazz Hyde APRN CNP Non-patient / [facility]-visit [facility] 11:59pm Blanca Belcher , JUANYepartriccardo Physician/Provider [facility] 8:[facility]am[facility] 2024 9:08amDischarged to home care or self care (routine discharge)Jazz Hyde APRN CNP Recent Diagnosis Onset Date Admit Date Allergic rhinitis Unknown December 02, 025 8:51am Chronic obstructive pulmonary disease (COPD) Unk nown December 02, 2024 8:51am Current smoker Unknown December 02 8:51am GERD (gastroesophageal reflux disease) Unknown December 02, 2024 8:51am Hyperlipemia Unknown December 02 8:51am Hypertension Unknown December 02 8:51am Sleep apnea Unknown December 02 8:51am Type 2 diabetes mellitus Unknown December 02, 2024 8:51am Chronic obstructive pulmonary disease (COPD) Unk nown January 03, 2025 8:21am Assessments Diagnosis Onset Date Resolution Status Admit Date Allergic rhinitis acuteOctober 2024 8:51amChronic obstructive pulmonary disease (COPD)acute December 02, 2024 8:51amCurrent smokeracuteOctober 2024 8:51amGERD (gastroesophageal reflux disease)acuteOctober 2024 8:51amHyperlipemiaacute December 02, 2024 8:51amHypertensionacuteOctober 2024 8:51amSleep apnea acuteOctober 2024 8:51amType 2 diabetes mellitusacuteOctober 2024 8:51amChronic obstructive pulmonary disease (COPD)acuteNov2024 8:21am Plan of Treatment Author [facility] 7:15qhI3h 6.7 Increased Victoza dose today in office. Continue metformin and glipizide. Patient is advised to work on healthy diet choices and appropriate servings, weight control, regular exercise as directed, reduced fat intake, and salt avoidance. Patient voiced understanding of this and agrees to this plan. ??Prior to your visit today we reviewed your [...] exercise, understanding your medications, and your compliance. Continue atorvastatin Discussed importance of maintaining an [...] your compliance, Wears CPAP nightly with benefit. Needs a new sleep machine was not able to sleep will need a medication to help with sleep. Reports that he has nicotine patches at [...] and willingness to quit at each appointment. Continue Montelukast. Beneficial for symptoms. Continue omeprazole. Reflux symptoms remain unchanged. Discussed the importance of meal content. They should avoid overeating and eating meals late in the evening. Take medication as directed and we will continue to monitor. Future Tests Future scheduled test information is unavailable Pending Tests Pending diagnostic test information is unavailable Future Visits Future appointment information is unavailable Future Procedures Procedure Name Ordered Date Scheduled Date Victor Manuel Cadena January 03, 2025 8:51am Future Medications Future medication information is unavailable Patient Instructions Patient instructions are unavailable Hospital Discharge Instructions Ambulatory Orders* Victor Manuel Cadena Time Frame: 01/03/25, Location: Determined By Patient
--- OUTSIDE RECORDS SUMMARY | 2025-01-05 10:47 | XMS_ITS | Clinical Summary ---
Author Organization [facility] Address [address], [address] [place] [address] Care Team Providers Care Ribbon Lapper Tender Name Role Phone Jazz Hyde APRN, CNP Primary Care Pro vider Social History Tobacco UseTypesPacks/DayYears UsedDateSmoking Tobacco: Never AssessedSex and Gender InformationValueDate RecordedSex Assigned at OiadaZudp86/06/2025 2:44 PM ESTLegal YeqJqbs29/06/2025 2:42 PM ESTGender UqryqvpzDiuj27/06/2025 2:44 PM EST Sexual GqvjyvxbrcnXdlhnijh83/06/2025 2:44 PM EST Plan of Treatment DateTypeDepartmentCare Team (Latest Contact Info)Uoohcshktpk32/19/2025 8:00 AM ESTOffice Visit [facility] [address] [place] [address] [address] [place] [address] [place] [address] [place] [address] [address] [place] [id number] [facility] MaintenanceDue DateLast DoneCommentsDepression Screen 1981HIV kttlnn2610/11/1984Hepatitis C rdrnnd0810/12/1987DTaP/Tdap/Td vaccine (1 - Tdap)1988Hepatitis B vaccine (1 of 3 - 19+ 3-dose series)1988 Esryqt5410/11/20093189Sgtbgtcufzf59/18/2015Colorectal Cancer Ujorgq1110/11/2014FIT/FOBT: Average risk2014Fecal-DNA (Cologuard): Average risk2014 Sigmoidoscopy/CT bpbimjtaxekl89/18/2015Pneumococcal 50+ years Vaccine (1 of 1 - PCV)10/12/2019Shingles vaccine (1 of 2)10/12/2019Flu vaccine (#1)09/24/2024 COVID-19 Vaccine ( - season)2024nnual Wellness Visit (Medicare) 12/30/2024Hepatitis A vaccineAged OutNo longer eligible based on patient's age to complete this topicHib vaccineAged OutNo longer eligible based on patient's age to complete this topicMeningococcal (ACWY) vaccineAged OutNo longer eligible based on patient's age to complete this topicMeningococcal B vaccineAged OutNo longer eligible based on patient's age to complete this topicPolio vaccineAged OutNo longer eligible based on patient's age to complete this topic Insurance Care Teams Team MemberRelationshipSpecialtyStart DateEnd Date Jazz Hyde APRN - GAYATRI [address] [place] [address] [facility]12/30/24
--- OUTSIDE RECORDS SUMMARY | 2025-01-05 10:47 | XMS_ITS | Clinical Summary ---
Author Organization [facility] Address [id number] [address] [place] [address] Care Team Providers Care Family Centered Specialist Name Role Phone Jazz Hyde Primary Care Provid er Social History Tobacco UseTypesPacks/DayYears UsedDateSmoking Tobacco: Never AssessedSex and Gender InformationValueDate RecordedSex Assigned at BirthNot on fileLegal Sex Male01/04/2025 2:33 PM ESTGender IdentityNot on fileSexual OrientationNot on file Plan of Treatment DateTypeDepartmentCare Team (Latest Contact Info)Nxibohiozrs26/17/2025 11:15 AM ESTInfant Monitor [facility] [address] [address] Health MaintenanceDue DateLast DoneCommentsDepression Yntdmhbsj85/18/1982Tobacco Ayaxwiaks24/18/1982Adult BMI Iwgznuxny14/18/1988DTaP,Tdap and Td Vaccines (1 - Tdap)1988Zoster (Shingles) Vaccine (1 of 2)10/12/2019Influenza Vaccine 10/25/2024 Medical Devices Not on file Insurance [address] [place] [address] Care Teams Team MemberRelationshipSpecialtyStart DateEnd Date Jazz Hyde APRN-NP [address] [place] [address] PCP - GeneralNurse Aglyqobfrvip44/11/25
--- OUTSIDE RECORDS SUMMARY | 2025-01-05 10:47 | XMS_ITS | Clinical Summary ---
Author Organization [facility] Address [address] [place] [address] Care Team Providers Care Pharmacovigilance Scientist Name Role Phone Pato Denson MD Primary Care Provider [phone] Antoinette Jeong LUNCHEONETTE MANAGER Unavailable [phone] Allergies No known active allergies Medications MedicationSigDispense [...] TAKE 1 (ONE) TABLET DAILY NEEDED FOR QFEVZOCV76/17/2020Active Alcohol Prep Pads PadM USE 1 PAD [...] pulmonary disease (COPD)10/10/2019PND (paroxysmal nocturnal dyspnea)01/23/2018 Cigarette nqwzcl1304/01/2017Centrilobular ahxgsfyiv98/02/2017Obstructive sleep apnea11/25/2016Tobacco abuse cauieyay06/02/2017Bilateral edema of lower ijezizpvt81/02/2017 Family History Medical HistoryRelationCommentsCancerMotherHypertensionMotherRelationStatus CommentsFatherAliveMotherDeceased Social History Tobacco UseTypesPacks/DayYears UsedDateSmoking Tobacco: Every RuzRoqayxfato689 Smokeless Tobacco: Never Tobacco Cessation:Ready to Q uit: Yes; Counseling Given: Yes Alcohol UseStandard Drinks/WeekCommentsNo0 (1 standard drink = 0.6 oz pure alcohol)Sex and Gender InformationValueDate RecordedSex Assigned at BirthNot on fileLegal XgpBcgb7011/01/2013 12:57 PM EDTGender FpxhqmpgFxyf65/30/2018 1:04 PM ESTSexual AwbwfraixtkYwxaurfu44/30/2018 1:04 PM EST Last Filed Vital Signs Vital SignReadingTime TakenCommentsBlood Wljvdrdf143/75010/10/2019 11:13 AM EDT Mejuc47308/16/2020 11:13 AM PLHYaklovwqcfu57.8 ??C (98.3 ??F)10/10/2019 8:08 AM EDTRespiratory Zsvu632710/10/2019 11:13 AM EDTOxygen Vhpjanqrod18%10/10/2019 11:13 AM EDTInhaled Oxygen Concentration--Ffxqvu986.1 kg (363 lb 15.7 oz)10/10/2019 3:56 AM QFKEpwzrs745.8 cm (5' 10 )10/09/2019 10:37 PM EDTBody Mass Index52.23 10/09/2019 10:37 PM EDT Plan of Treatment Health MaintenanceDue DateLast DoneCommentsCT Yhtfwcpwsmhk48/18/1970Colonoscopy 1969Colorectal Cancer Screening/Gdhaovnnoe46/18/1970Fecal DNA1969 Fecal occult blood test (FOBT,FIT)1969PSA Level1969MMR Vaccines (1 of 1 - Standard series)1970Wellness Visit1972Depression Screening/Follow-Up (PHQ-2/9)1981HIV Ruazggzbc13/18/1985Hepatitis C Pqgqefsjd25/18/1988Hepatitis B Vaccines (1 of 3 - 19+ [...] AAccovaughn TypeRelation to PatientDate of BirthPhone Billing AddressPersonal/BwjjscRzmi97/18/1971 [phone] (Home) [address] [place] [address] Advance Directives For more information, please contact: [phone] * Full Code (Latest Code Status on File) Date ActivatedDate InactivatedComments10/10/2019 4:19 AM10/10/2019 4:28 PM Care Teams Team MemberRelationshipSpecialtyStart DateEnd Date Pato Denson MD PCP - GeneralInternal Medicine06/17/14 Antoinette Jeong, LUNCHEONETTE MANAGER [address] [address] Nurse PractitionerPulmonology10/21/19
--- OUTSIDE RECORDS SUMMARY | 2025-01-05 10:48 | XMS_ITS | Clinical Summary ---
Author Organization [facility] Address [address] [place] [address] Care Team Providers Care Lubrication Equipment Servicer Name Role Phone Unavailable Primary Care Provider Unavailabl e Social History Tobacco UseTypesPacks/DayYears UsedDateSmoking Tobacco: Never AssessedSex and Gender InformationValueDate RecordedSex Assigned at BirthNot on fileLegal Sex Male09/04/2023 4:04 PM EDTGender IdentityNot on fileSexual OrientationNot on file Plan of Treatment Not on file Insurance
--- OUTSIDE RECORDS SUMMARY | 2025-01-05 10:48 | XMS_ITS | Patient Health Record ---
Author Organization [facility] Address [address] [place] [address] Care Team Providers Care Butadiene Converter Utility Operator Name Role Phone Jazz Hyde CNP Primary Care Provider Funmi wagnerangie TucsonAnny Unavailable [phone] Jac Matthew Unavailable [phone] Allergies No Known Allergies Results Component Value Reference Range Notes CT chest wo con Reviewed date:02/11/2024 07:41:06 AM Interpretation: Performing Lab: Notes/Report: Source Facility: [place] [address] CT Scan Report Signed Patient: ERNIE GUERIN MR#: [id number] : 1970 Acct:[id number] Age/Sex: 53 / M ADM Date: 02/06/24 Loc: CT Attending Dr: aJc Matthew D.O. Ordering Physician: Jac Matthew D.O. Date of Service: 02/06/24 Procedure(s): CT chest wo con Accession Number(s): [id number] cc: Franchesca Don NP [place] [id number] Patient Name: ERNIE GUERIN MRN: [id number] date: 1970 Sex: M Assigned Patient Location: CT Current Patient Location: Accession/Order Number: [id number] Exam Date: 02/06/2024 08:01 Report Date: 02/09/2024 [...] Signed By: 02/09/24 1257 DD/ 1254 TD/TT: Metal Fabricator Welder: CT Chest w/o contrast Reviewed date:02/09/2024 01:11:36 PM Interpretation: Performing Lab: Notes/Report: Reason For Referral No Information Medications Medication SIG (Take, Route, Frequency, Duration) Notes Start Date End Date Status Lac-Hydrin Five 5 % 1 application Externally Twi ce a day 4ActiveLisinopril 5 MGTAKE 1 TABLET BY MOUTH EVERY DAY Oral; Duration: 90 DaysActiveBreztri Aerosphere 160-9-4.8 MCG/ACT 2 puffs Inhalation BID; Duration: 90 days Rinse after use; Dispense #3 inhalers ActivemetFORMIN HCl 1000 MGOral; Duration: 90 DaysActiveglipiZIDE 10 MGOral; Duration: 90 DaysActiveIpratropium Beaumont 0.03 %Nasal; Duration: 90 DaysActive Victoza 18 MG/3MLas directed Zvsecilcmhab13/05/2025ActiveKlor-Con M20 20 MEQ Oral; Duration: 90 DaysActiveIpratropium-Albuterol 0.5-2.5 (3) MG/3ML3mL Inhalation QID; Duration: 90 daysActiveMontelukast Sodium 10 MGOral; Duration: 90 DaysActiveVentolin HFA 108 (90 Base) MCG/ACT2 puffs as needed for SOB Inhalation Q4H; Duration: 90 daysActiveAtorvastatin Calcium 20 MGTAKE 1 TABLET BY MOUTH EVERY DAY Oral; Duration: 90 DaysActiveMucinex 600 MG1 tablet as needed Orally every 12 hrsActiveOmeprazole 40 MGOral; Duration: 90 DaysActive Fluticasone Propionate 50 MCG/ACTNasal; Duration: 90 DaysActivepredniSONE 20 MG3 tabs x 3 days, 2 tabs x 3 days, 1 tab x 3 days Orally Once a day; Duration: 9 03/31/2024Not-Taking Immunizations Vaccine Route Administration Date Status [facility] Pfizer Syringe Pre -Filled 30 mcg/0.3 mL Unknown 11/16/2022 Administered Flu, Flucelvax (60123) 2 yrs+, single-dose syringe (2122-6741)Iejikol3611/16/2022 Administered Social History Tobacco Use: Social History Observation Description Date Details (start date - stop date) Current Smoker NA - NA Tobacco Control (Standard) Question Answer Notes Tobacco use: Current smoker How often do you smoke cigarettes?Every dayHow many cigarettes a day do you smoke?21-30Additional Findings: Tobacco userHeavy cigarette smoker (20-39 cigs/day) Problems Problem Type SNOMED Code ICD Code Onset Dates Problem Status W/U Status Risk Notes Problem Chronic obstructive pulmonary disease (04393745) Chronic obstructive pulmonary disease, unspecified (J44.9) ActiveconfirmedProblemPolyneuropathy due to type 2 diabetes mellitus (586084863) Type 2 diabetes mellitus with diabetic polyneuropathy (E11.42)Activeconfirmed ProblemFoot ulcer due to type 2 diabetes mellitus (7315044682455)Type 2 diabetes mellitus with foot ulcer (E11.621)ActiveconfirmedProblemChronic ulcer of foot (466032389)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)ActiveconfirmedProblemLong-term current use of 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 (728082508)penitentiary (current) use of 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s (Z79.51)Activeconfirmed ProblemMorbid obesity (804038026)Morbid obesity (E66.01)ActiveconfirmedProblem COPD - Chronic obstructive pulmonary disease (64307089)COPD (chronic obstructive pulmonary disease) (J44.9)ActiveconfirmedProblemObstructive sleep apnea syndrome (18158024)MICHA (obstructive sleep apnea) (G47.33)ActiveconfirmedProblemDiabetes mellitus type 2 (disorder) (77936110)DM2 (diabetes mellitus, type 2) (E11.9) ActiveconfirmedProblemMental disorder caused by drug (786667847)Cigarette nicotine dependence with nicotine-induced disorder (F17.219)Activeconfirmed ProblemLung field abnormal (839284978)Right lower lobe lung mass (R91.8)Active confirmedProblemBody mass index 40+ - morbidly obese (147208318)Body mass index [BMI] 50.0-59.9, adult (Z68.43)Activeconfirmed Vital Signs Heart Rate 71 /min 08/11/2024 [...] Encounter Location Date Provider Diagnosis Pulmonary Medicine [place] [address] [place] [address] 03/25/2024 [facility] Pulmonary Medicine [address] [place] [address]/17/20[facility] [address] [place] [address] 09/[facility] [address] [place] [address]/[facility] [address] [place] [address]/06/2024Nathan SamsaCOPD (chronic obstructive pulmonary disease) J44.9 ; Cigarette nicotine dependence with nicotine-induced disorder F17.219 ; Morbid obesity E66.01 and Body mass index [BMI] 50.0-59.9, adult Z68.43Pulmonary Medicine [address] [place] [address] 08/11/2024Nathan SamsaCOPD (chronic obstructive pulmonary disease) J44.9 ; Right lower lobe lung mass R91.8 ; Cigarette nicotine dependence with nicotine- induced disorder F17.219 ; MICHA (obstructive sleep apnea) G47.33 ; DM2 (diabetes mellitus, type 2) E11.9 ; Morbid obesity E66.01 ; intermediate manager (current) use of 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s Z79.51 and Body mass index [BMI] 50.0-59.9, adult Z68.[address] [address]/ Jac SamsaCOPD (chronic obstructive pulmonary disease) J44.9 ; Right lower lobe lung mass R91.8 ; Cigarette nicotine dependence with nicotine-induced disorder F17.219 ; MICHA (obstructive sleep apnea) G47.33 ; DM2 (diabetes mellitus, type 2) E11.9 ; Morbid obesity E66.01 ; intermediate manager (current) use of 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s Z79.51 and Body mass index [BMI] 50.0-59.9, adult Z68.43[facility] (PODI[facility])[address] [place] [address] [place] [address]/Kimberly CullenDM2 (diabetes mellitus, type 2) E11.9 Assessments Encounter Date Diagnosis (ICD Code) Assessment Notes Treatment Notes Treatment Clinical Notes Section Notes 02/10/2024 COPD (chronic obstructive pulmon radha disease) (ICD-10 - J44.9) Patient is using [...] Options are limited at this time; he mayend up requiring daily prednisone if he does not stop smoking. 4DM2 (diabetes mellitus, type 2) (ICD-10 - E11.9)5COPD (chronic obstructive pulmonary disease) (ICD-10 - J44.9) Using Breztri, remains symptomatic. Explained as long as he continues smoking to not expect any significant improvement in his breathing. He is using DuoNeb for only 30 seconds. Discussed if he needsa quick fix, using the albuterol HFA may be a better option for him instead of wasting a whole nebule. He voiced he did not think of that before, but he would try that. If he is still symptomatic 1-2 hours later, he can then use DuoNeb. Zgsg-sr-tvem encounter performed with the patient to document continued need for a nebulizer with nebulized medications. -Current nebulized medications: DuoNeb -Symptom control: Better with use -Reported side or adverse effects: None -Recommendations: Continue DuoNeb. Renew/reorder/refill nebulizer and supplies. 03/31/2024OPD (chronic obstructive pulmonary disease) (ICD-10 - J44.9) Lmct-aa-psuv encounter performed with the patient to document [...] breathing continues to deteriorate, he may become prednisone-dependent. Prednisone helps him breathe better, but he is already morbidly obese, and chronic prednisone therapy will have diffuse systemic adverse effects for him. I voiced that Iwill send in an Rx for prednisone taper [...] appointment on 08/11/2024 to review his other issuesI am monitoring. 5Cigarette nicotine dependence with nicotine-induced disorder (ICD-10 - F17.219) Discussed cessation yet again today. Continues to smoke 1ppd. He was counseled on the importance ofsmoking cessation. 03/31/2024Morbid obesity (ICD-10 - E66.01) Patient is morbidly obese. It is inducing a restrictive pulmonary physiology. Weight loss indicated: Decrease calories, increase activity. 08/11/2024Right lower lobe lung mass (ICD-10 - R91.8) [...] 01/2025. Personally handed patient order for test. 4Right lower lobe lung mass (ICD-10 - R91.8) [...] to annual LDCT screening. Patient voiced understanding. 4Cigarette nicotine dependence with nicotine-induced disorder (ICD-10 - F17.219) Discussed cessation again today. He remains at 1 pack a day. He has not made any attempts to stop. He states he is going to discuss with his PCP options. I discussed options with him personally including Chantix, Wellbutrin, acupuncture, hypnosis, nicotine replacement therapy, and cold turkey. Hedid not commit to any of the suggestions today. 5Cigarette nicotine dependence with nicotine-induced disorder (ICD-10 - F17.219) Discussed cessation yet again. Continues to smoke 1ppd and voiced no desire to quit at this time after voicing understanding of the risks of ongoing smoking. 03/31/2024ody mass index [BMI] 50.0-59.9, adult (ICD-10 - Z68.43)08/11/2024OSA (obstructive sleep apnea) (ICD-10 - G47.33) Glta-yu-qfer encounter performed with the patient to document continued need for PAP therapy. -Compliance was reviewed from 07/12/2024 - 08/10/2024 -Total days used: 30/30 (100%) -Total of all days >4 hours of use: 30/30 (100%) -Current model, mode, & pressure: AirCurve 10 VAuto [id number] -Residual AHI: 0.2 -Air leak (median): 1.6L/min -Mask/harness fitting: No complaints -Sleep quality: Better with PAP use -Daytime hypersomnolence: Decreased with PAP use -Recommendations: Superb compliance with voiced benefit and no concerns expressed today. Continue CPAP @ current settings @ HS/naps. -Note: This izuq-nk-fele visit comes with my authorization that the patient's DME may request to renew, reorder, and/or replace tubing, supplies, mask, and/or PAP device (if applicable). 02/10/2024OSA (obstructive sleep apnea) (ICD-10 - G47.33) Fobt-yp-gtbj encounter performed with the patient to document continued need for PAP therapy. -Compliance was reviewed from 01/10/2024 - 02/08/2024 -Total days used: 30 (100%) -Total of all days >4 hours of use: 30/30 (100%) -Current model, mode, & pressure: AirCurve 10 VAuto 01kyN2Z -Residual AHI: 0.2 -Air leak (95th percentile): 49.8L/min -Mask/harness fitting: No complaints -Sleep quality: Sleeps well with limited nocturnal awakenings -Daytime hypersomnolence: Feels well-rested in the morning -Recommendations: Maintain superb compliance without any significant issues. He loves his machine and cannot sleep without it. MICHA has resolved with use. Continue CPAP @ current settings @ HS/naps. -Note: This fnxa-uo-vxmo visit comes with my authorization that the patient's DME may request to renew, reorder, and/or replace tubing, supplies, mask, and/or PAP device (if applicable). 4DM2 (diabetes mellitus, type 2) (ICD-10 - E11.9) Steroids prescribed for this patient's underlying pulmonary disease can adversely affect blood glucose levels, inducing hyperglycemia and worsening underlying diabetes. The patient is encouraged to follow up with the primary care provider to create a plan to manage diabetes in this situation. 08/11/2024DM2 (diabetes mellitus, type 2) (ICD-10 - E11.9) Steroids prescribed for this patient's underlying pulmonary disease can adversely affect blood glucose levels, inducing hyperglycemia and worsening underlying diabetes. The patient is encouraged to follow up with the primary care provider to create a plan to manage diabetes in this situation. 08/11/2024Morbid obesity (ICD-10 - E66.01) Patient is morbidly obese. It is inducing a restrictive pulmonary physiology. Weight loss indicated: Decrease calories, increase activity. 02/10/2024Morbid obesity (ICD-10 - E66.01) Patient is morbidly obese. It is inducing a restrictive pulmonary physiology. Weight loss indicated: Decrease calories, increase activity. 02/10/2024Long term (current) use of 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s (ICD-10 - Z79.51) Patient was counseled to rinse & gargle with water after inhaled corticosteroid use. 08/11/2024Long term (current) use of 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s (ICD-10 - Z79.51) Patient was counseled to rinse & gargle with water after inhaled corticosteroid use. 5Body mass index [BMI] 50.0-59.9, adult (ICD-10 - Z68.43)4Body mass index [BMI] 50.0-59.9, adult (ICD-10 - Z68.43)03/31/2024Other History Chest CT 02/06/2024: No change in [...] to annual LDCT screening. Patient voiced understanding. Azvg-ew-lola encounter performed with the patient to document continued need for PAP therapy. -Compliance was reviewed from 01/10/2024 - 02/08/2024 -Total days used: 30/30 (100%) -Total of all days >4 hours of use: 30/30 (100%) -Current model, mode, & pressure: AirCurve 10 VAuto 59ptN5T -Residual AHI: 0.2 -Air leak (95th percentile): 49.8L/min -Mask/harness fitting: No complaints -Sleep quality: Sleeps well with limited nocturnal awakenings -Daytime hypersomnolence: Feels well-rested in the morning -Recommendations: Maintain superb compliance without any significant issues. He loves his machine and cannot sleep without it. MICHA has resolved with use. Continue CPAP @ current settings @ HS/naps. -Note: This ksfj-ae-oxrn visit comes with my authorization that the [...] End Date [place]IC[place] [address] [place] [address] [id number] Usha Guerin - patient is the [id number] 2019[address] OFFICE OF [place], [place] [id number] Usha Guerin - patient is the insured Medical (General) History Medical History History ICD Code COPD (chronic obstructive pulmonary dise ase) J44.9 Cigarette nicotine dependence with nicot ine-induced disorder F17.219 penitentiary (current) use of inhaled stero ids Z79.51 MICHA (obstructive sleep apnea) G47.33 Gastroesophageal reflux disease with eso phagitis without hemorrhage K21.00 DM2 (diabetes mellitus, type 2) E11.9 HTN (hypertension) I10 Allergic rhinitis J30.9 Morbid obesity E66.01 Right lower lobe lung mass R91.8 venous insufficiency
--- OUTSIDE RECORDS SUMMARY | 2025-01-05 10:49 | XMS_ITS | CCD ---
Author Organization [facility] CliniSynd Care Team Providers Care Project Director Name Role Phone Verma, Bernadine Unavailable PALMER, DREMA DAVONTE Unavailable Unavailab le PALMER, DREMA DAVONTE Unavailable Unavailab le VERMA, BERNADINE Unavailable Unavailable Verma, Bernadine Primary Care Provider VERMA, BERNADINE Primary Care Unavailable DEBBIE ERWIN Attending Unavailabl e Verma, Bernadine Primary Care Provider Angelo Rios Unavailable [phone] VERMA, BERNADINE Primary Care Unavailable MYAH VALLE [...] VERMA, BERNADINE Primary Care Unavailable Jarett SALINAS, [facility] Primary Care Provider [phone] Jean-Paul MENDIETA, Al G Unavailable Jarett SALINAS, [facility] Primary Care Provider Jean-Paul MENDIETA Al G Unavailable Jean-Paul MENDIETA, Al G Unavailable Jarett SALINAS, [facility] Primary [facility] Provider [phone] Jean-Paul MENDIETA Al G Unavailable SELF, SELF Referring Unavailable DOAR VILLAGOMEZ Attending Unavailable VERMA [facility] Primary Care Unavailable DORA VILLAGOMEZ Referring Unavailable KIKI CHILDRESS Primary Care Physician Jj Stevens Primary Care Physician [phone] Jj Stevens Admitting Unavailable Link, Jj Jay Attending Unavailable Link, Jj Jay Admitting Unavailable Link, Jj Jay Attending Unavailable Franchesca Don Admitting Unavailable Franchesca Don Attending Unavailable Casey Morse Attending Unavailable Casey Morse Admitting Unavailable Jarett SALINAS, [facility] Primary [facility] Provider Jean-Paul DIRECTOR OF PARKS AND RECREATION Al G Unavailable [phone] Jazz Hyde Attending Unavailable Jazz Hyde Admitting Unavailable Jazz Hyde APRN Attending Provider [phone] Jazz Hyde APRN Attending Provider Jazz Hyde APRN Primary Care Provider Jazz Hyde APRN Attending Provider [phone] Jazz Hyde APRN Primary Care Provider Jazz Hyde APRN Attending Provider Jazz Hyde APRN Primary Care Provider Jazz Hyde APRN Attending Provider Blanca Belcher DO Attending Provider [phone] Medications Current Medications MedicationDrug Class(es)DatesSig (Normalized)Sig (Original)acetaminophen 500 mg oral tablet (18 sources)acetaminophen (TYLENOL EXTRA STRENGTH) 500 MG tablet Take by mouth. 0 Vjrhge30 actuat aclidinium bromide 0.4 mg/actuat dry powder inhaler (19 sources)Start: 09-49-1916ayrt 400 ug by inhalation every twelve hours aclidinium bromide (Tudorza Pressair) 400 mcg/actuation AePB Inhale 1 (one) puff (400 mcg total) every 12 (twelve) hours . 1 each 02/16/2020 ActiveStart: 38-01-4852bwir 400 ug by inhalation every twelve hoursaclidinium bromide (Tudorza Pressair) 400 mcg/actuation AePB Inhale 1 (one) puff (400 mcg total) every 12 (twelve) hours . 1 each 10/21/2019 ActiveStart: 14-73-2630jlvk 400 ug by inhalation every twelve hoursaclidinium bromide (TUDORZA PRESSAIR) 400 mcg/actuation AePB Inhale 1 (one) puff (400 mcg total) every 12 (twelve) hours . 1 each 06/04/2018 ActiveStart: 08-11-2017 End: 38-21-4188zpjp 1 dose by mouth every twelve hoursTUDORZA PRESSAIR 400 mcg/actuation AePB INHALE ONE DOSE BY MOUTH EVERY 12 HOURS 1 each 08/11/2017 06/15/2018 DiscontinuedStart: 95-51-1889hgfv 1 dose by mouth every twelve hours TUDORZA PRESSAIR 400 mcg/actuation AePB INHALE ONE DOSE BY MOUTH EVERY 12 HOURS 1 each 08/09/2016 [id number] 200 actuat albuterol 0.09 mg/actuat metered dose inhaler (20 sources)beta2-Adrenergic AgonistStart: 08-18-2023 End: 83-74-8312nmze 1 puff(s) by inhalation every four hours as needed for wheezingAlbuterol Sulfate (Ventolin Hfa) 90 mcg/actuation HFA aerosol inhaler Active 2 PUFF INHALATION Every 4 hours as needed for shortness of breath or wheezing 6.7 5 January 16, 2024 9:12am Chronic obstructive pulmonary disease Chronic obstructive pulmonary disease, unspecified Complies with drug therapy Start: 37-97-7535uciv 2 puff(s) by inhalation every six hours as needed for wheezingalbuterol 90 mcg/actuation inhaler Inhale 2 (two) puffs every 6 (six) hours as needed for wheezing . 1 Inhaler 11 06/04/2018 ActiveStart: 11-27-2017 End: 88-10-2074nwcb 2 puff(s) by inhalation every six hours as needed for wheezingalbuterol 90 mcg/actuation inhaler Inhale 2 (two) puffs every 6 (six) hours as needed for wheezing . 1 Inhaler 11 06/04/2018 ActiveStart: 04-01-2017 End: 03-49-5941ygyaxsfut (PROVENTIL) 2.5 mg /3 mL (0.083 %) nebulizer solution 2.5 mg 2.5 mg, Nebulization, Once (RT), 04/01/17 at 1000, For 1 dose, To be administered as part of Pulmonary Function Testing. Given04/01/2017 09:09 EST 2.5 mgtake 2.5 mg by inhalation every six hours as neededalbuterol (PROVENTIL) 2.5 mg /3 mL (0.083 %) nebulizer solution Take 2.5 mg by nebulization every 6(six) hours as needed for wheezing. 0 Activealbuterol (PROVENTIL HFA;VENTOLIN HFA) 90 mcg/actuation inhaler Inhale 2 puffs every 6 (six) hours as needed for wheezing. Activealbuterol 90 mcg/actuation inhaler (4 sources)Start: 30-50-6753jokz 2 puff(s) by inhalation every six hours as needed for wheezingalbuterol 90 mcg/actuation inhaler Inhale 2 (two) puffs every 6 (six) hours as needed for wheezing . 1 Inhaler 11 06/04/2018 ActiveStart: 64-19-5377tpzj 2 puff(s) by inhalation every six hours as needed for wheezing albuterol 90 mcg/actuation inhaler Inhale 2 (two) puffs every 6 (six) hours as needed for wheezing . 1 Inhaler 06/04/2018 SuspendedAlbuterol Sulfate (Ventolin Hfa) 90 mcg/actuation HFA aerosol inhaler (3 sources)Start: 52-32-7486jfgj 1 puff(s) by inhalation every four hours as needed for wheezingAlbuterol Sulfate (Ventolin Hfa) 90 mcg/actuation HFA aerosol inhaler Active 2 PUFF INHALATION Every 4 hours as needed for shortness of breath or wheezing 6.7 January 16, 2024 10:12amStart: 67-96-6721aszj 1 puff(s) by inhalation every four hours as needed for wheezingAlbuterol Sulfate (Ventolin Hfa) 90 mcg/actuation HFA aerosol inhaler Active 2 PUFF INHALATION Every 4 hours as needed for shortness of breath or wheezing 6.7 January 16, 2024 9:12am azithromycin 250 mg oral tablet (2 sources)Macrolide AntimicrobialStart: 01-74-7232dcmihdggktbd (Zithromax) 250 MG tablet Take 2 pills on day 1, and then 1 pill a day for 4 days. . 6tablet 0 11/24/2019 ActiveBlood-Glucose Meter (Accu-Chek Guide Glucose Meter) misc (6 sources)Start: 45-06-1776Vtcqf-Glucose Meter (Accu-Chek Guide Glucose Meter) misc Active 0 .Route 1 0 February 11, 2024 12:00am As directedStart: 53-03-9402Cjoio-Glucose Meter (Accu-Chek Guide Glucose Meter) misc Active 0 .Route 1 February 11, 2024 1:00am As directedStart: 60-79-0719Ngbyp-Glucose Meter (Accu-Chek Guide Glucose Meter) misc Active 0 .Route 1 February 11, 2024 12:00am As prknyqqlOlwiybfxnx-Nqqjihit-Gtjluhrhyh (12 sources)Corticosteroid, beta2-Adrenergic AgonistStart: 08-25-2023 Bobuqjstjw-Jexekosh-Zjmlnilklp (Breztri Aerosphere) 160-9-4.8 mcg/actuation HFA aerosol inhaler Active 2 INH INHALATION Twice daily 5.9 30 August 25, 2023 8:28am Complies with drug therapyStart: 83-97-5961Ygehdcatrw-Glycopyr-Formoterol (Breztri Aerosphere) 160-9-4.8 mcg/actuation HFA aerosol inhaler Active 2 INH INHALATION Twice daily 5.9 30 August 25, 2023 9:28am Complies with drug therapy Start: 08-18-2023 End: 82-24-8390Wdrhedxvuj-Glycopyr-Formoterol (Breztri Aerosphere) 160-9-4.8 mcg/actuation HFA aerosol inhaler Discontinued 2 INH INHALATION Twice daily August 17, 2023 11:00pm August 25, 2023 8:83irHygelazkvb-Dgwyqryi-Loxzyvcxun (Breztri Aerosphere) 160-9-4.8 mcg/actuation HFA aerosol inhaler (5 sources)Start: 53-49-0929Hpqjexnzps-Glycopyr-Formoterol (Breztri Aerosphere) 160-9-4.8 mcg/actuation HFA aerosol inhaler Active 2 INH INHALATION Twice daily 5.9 30 August 25, 2023 8:28amStart: 06-29-1376Mqmkdshjlk-Glycopyr-Formoterol (Breztri Aerosphere) 160-9-4.8 mcg/actuation HFA aerosol inhaler Active 2 INH INHALATION Twice daily 5.9 30 August 25, 2023 9:28amFluticasone 500 McG- Salmeterol 50 McG/Dose Blistr Powdr For Inhalation (3 sources)Corticosteroid, beta2-Adrenergic Agonistfluticasone-salmeterol (ADVAIR DISKUS) 500-50 mcg/dose diskus inhaler Inhale 1 puff 2 (two) times aday. Mrqnpy68 actuat formoterol fumarate 0.005 mg/actuat / mometasone furoate 0.2 mg/actuat metered dose inhaler (17 sources)Corticosteroid, beta2-Adrenergic AgonistStart: 18-22-9345inhn 2 puff(s) by inhalation twice dailymometasone-formoterol (Dulera) 200-5 mcg/actuation HFAA Inhale 2 (two) puffs (400 mcg total) 2 (two) times a day Rinse and spit after use . 1 Inhaler 11 10/21/2019 ActiveStart: 11-27-2017 End: 70-33-7554hfhq 2 puff(s) by inhalation twice dailyDULERA 200-5 mcg/actuation HFAA Inhale 2 (two) puffs (400 mcg total) 2 (two) times a day . 1 Inhaler 11 06/04/2018 ActiveStart: 41-61-4270EKRNCD 200-5 mcg/actuation HFAA furosemide 40 mg oral tablet (18 sources)Loop DiureticStart: 75-61-9846iikgdfkeyv (LASIX) 40 MG tablet TAKE 1 (ONE) TABLET DAILY NEEDED FOR SWELLING 0 02/10/2020 ActiveStart: 04-15-2014 End: 29-43-8653wsxs 1 tablet by mouth once dailyfurosemide (LASIX) 40 MG tablet Take 40 mg by mouth daily . 0 04/15/2014 10/10/2019 Hbzfnlldfeck57 hr guaiFENesin 1200 mg extended release oral tablet (3 sources)Start: 92-33-2197hkrp 1 tablet by mouth once daily at bedtime, then take 1 tablet by mouth every twelve hoursGuaifenesin (Mucus Relief Er) 1,200 mg tablet extended release 12hr Active 1200 MG PO Daily at bedtime 90 90 1 August 22, 2024 11:00pm Chronic obstructive pulmonary disease Chronic obstructive pulmonary disease, unspecified Complies with drug therapyipratropium bromide 0.021 mg/actuat metered dose nasal spray (20 sources)AnticholinergicStart: 09-27-2024 End: 11-11-0390dsjt 2 spray(s) nasal route twice dailyIpratropium [place] 21 mcg (0.03 %) spray,non-aerosol Active 0 .ROUTE .COMPLEX 30 December 17, 2024 6:26am Chronic obstructive pulmonary disease Chronic obstructive pulmonary disease, unspecified USE 2 SPRAYS IN EACH NOSTRIL TWICE A DAY Complies with drug therapyStart: 03-30-2024 End: 60-60-9904mzkk 1 spray(s) nasal route twice dailyIpratropium [place] 21 mcg (0.03 %) spray,non-aerosol Discontinued 2 SPRAY INTRANASAL Twice daily 30 3 June 28, 2024 6:53am September 27, 2024 7:06am Chronic obstructive pulmonary disease Chronic obstructive pulmonary disease, unspecified administer into each nostril Start: 11-04-2023 End: 81-20-0409ybfn 1 mL by inhalation every six hours as needed for wheezing Ipratropium [place] 0.02 % solution Discontinued 3 ML INHALATION Every 6 hours as needed for shortness of breath or wheezing 150 2 November 04, 2023 10:35am November 11, 2023 3:41pm Chronic obstructive pulmonary disease Chronic obstructive pulmonary disease, unspecifiedStart: 11-04-2023 End: 15-71-1060sogl 1 mL by inhalation every six hoursIpratropium [place] Discontinued 3 ML INHALATION Every 6 hours 150 November 04, 2023 11:35am Sept emb2023 4:41pmStart: 08-18-2023 End: 34-98-9883Rdrpgmxnzhy [place] 21 mcg (0.03 %) spray,non-aerosol Discontinued 2 SPRAY INTRANASAL Three times daily as needed August 17, 2023 11:00pm August 25, 2023 6:58amStart: 04-18-1308vqio 2 spray(s) nasal route three times dailyipratropium (ATROVENT) 21 mcg (0.03 %) nasal spray Instill 2 (two) sprays into each nostril 3 (three) times a day Follow-up needed. Please call office to schedule. . 30 mL 3 12/11/2020 ActiveStart: 58-95-2969eytf 2 puff(s) by inhalation twice dailyAtrovent HFA 17 mcg/actuation inhaler INHALE 2 (TWO) PUFFS 2 (TWO) TIMES A DAY . 12.9 Inhaler 3 03/13/2020 ActiveStart: 02-16-2020 End: 22-15-4706tjkw 2 spray(s) nasal route three times dailyipratropium (ATROVENT) 0.03 % nasal spray Instill 2 (two) sprays into each nostril 3 (three) times a day . 30 mL 11 02/16/2020 02/15/2021 ActiveStart: 59-78-8643evmk 2 puff(s) by inhalation twice dailyipratropium (ATROVENT HFA) 17 mcg/actuation inhaler Inhale 2 (two) puffs 2 (two) times a day . 1 Inhaler 3 12/01/2019 Active isopropyl alcohol 0.7 ml/ml medicated pad (19 sources)Start: 02-12-2024 End: 14-12-0076Katpfwx Swabs (Bd Alcohol Swabs) pads, medicated Active 0 TOPICAL .BID 100 3 December 14, 2024 6:28am Type 2 diabetes mellitus Type 2 diabetes mellitus without complications pad topically BID; Complies with drug therapy Start: 81-32-8779Jbleaco Prep Pads PadM USE 1 PAD DAILY 0 12/19/2019 Active3 ml liraglutide 6 mg/ml pen injector (20 sources)GLP-1 Receptor AgonistStart: 06-28-2024 End: 15-33-3800Tkcypffevrb (Victoza 2-Acosta) 0.6 mg/0.1 mL (18 mg/3 mL) pen injector Active 1.8 MG SUBCUT Daily 90 2 December 02, 2024 8:21am Type 2 diabetes mellitus Type 2 diabetes mellitus without complicationsComplies with drug therapyStart: 03-30-2024 End: 52-99-0463Lqhcwgfycph (Victoza 2-Acosta) 0.6 mg/0.1 mL (18 mg/3 mL) pen injector Discontinued 1.2 MG SUBCUT Daily 2 March 30, 2024 8:45am June 28, 2024 7:41am Type 2 diabetes mellitus Type 2 diabetes mellitus without complicationsStart: 11-25-2023 End: 23-68-5204Omhydkvqcdd (Victoza 2-Acosta) 0.6 mg/0.1 mL (18 mg/3 mL) pen injector Discontinued 0 SUBCUT .COMPLEX 6 0 December 26, 2023 8:20am January 08, 2024 1:32pm inject 0.6mg subcutaneously once dailyStart: 18-15-9960OIHDAEU 2-ACOSTA 0.6 mg/0.1 mL (18 mg/3 mL) Pen Inject 1.2 mg under the skin daily . 0 03/22/2017 ActiveStart: 17-66-6440EFKFDDR 2-ACOSTA 0.6 mg/0.1 mL (18 mg/3 mL) Pen metFORMIN hydrochloride 1000 mg oral tablet (20 sources)BiguanideStart: 05-17-2024 End: 03-97-3630xfoo 1 tablet by mouth twice dailyMetformin 1,000 mg tablet Active 0 .ROUTE .COMPLEX 180 November 04, 2024 6:30am Type 2 diabetes mellitus Type 2 diabetes mellitus without complications TAKE 1 TABLET BY MOUTH TWICE A DAY Complies with drug therapyStart: 08-18-2023 End: 07-37-5892rvyh 1 tablet by mouth twice dailyMetformin 1,000 mg tablet Discontinued 1000 MG PO Twice daily 90 1 January 16, 2024 9:14am 2024 6:56am Type 2 diabetes mellitus Type 2 diabetes mellitus without complicationsStart: 94-40-6705nrxu 1 tablet by mouth twice daily at mealtime metFORMIN (GLUCOPHAGE) 1000 MG tablet Take 1,000 mg by mouth 2 (two) times a day with meals . 0 08/16/2016 ActivemethylPREDNISolone 4 mg oral tablet (2 sources)CorticosteroidStart: 08-03-2021 End: 45-94-8518Bggnjn 4 mg Tab = 1 packet(s), Oral, As Directed, as directed on package labeling, X 6 day(s), # 21tab(s), Refills(s) 0, Pharmacy: [facility]/pharmacy #[id number], 178, cm, 08/03/21 10:30:00 EDT, Height/Length Dosing, 175, kg, 08/03/21 10:30:00 EDT, Weight Dosing Start Date: 08/03/21 Stop Date: 08/09/21 Status: O rderedStart: 10-09-2019 End: 22-06-2019ktewdlDUKMRVVzgchq sod suc(PF) (SOLU-medrol) Injection 125 mg penicillin v potassium 500 mg oral tablet (1 source)Start: 06-15-2018 End: 64-88-2152ydhm 1 tablet by mouth four times dailypenicillin v potassium (VEETID) 500 MG tablet Take 1 (one) tablet (500 mg total) by mouth 4 (four) t imes a day for 7 days . 28 tablet 0 06/15/2018 06/22/2018 Active microencapsulated potassium chloride 20 meq extended release oral tablet (20 sources)Start: 08-18-2023 End: 10-16-6636Dvbgxpbjl Chloride (Klor-Con M20) 20 mEq tablet,ER particles/crystals Active 20 MEQ PO Daily 90 January 03, 2025 8:49am Complies with drug therapyStart: 04-15-2014 End: 48-34-3382wgwo 1 tablet by mouth once daily, then take 1 tablet by mouth potassium chloride SA (K-DUR,KLOR-CON) 20 MEQ tablet Take 20 mEq by mouth daily . 0 04/15/2014 10/10/2019 DiscontinuedTUDORZA PRESSAIR 400 mcg/actuation AePB (1 source)Start: 42-47-6644amhu 1 dose by mouth every twelve hoursTUDORZA PRESSAIR 400 mcg/actuation AePB INHALE ONE DOSE BY MOUTH EVERY 12 HOURS 1 each 08/09/2016 Active Completed/Discontinued Medications MedicationDrug Class(es)DatesSig (Normalized)Sig (Original)albuterol 0.833 mg/ml / ipratropium bromide 0.167 mg/ml inhalation solution (20 sources)Anticholinergic, beta2-Adrenergic AgonistStart: 11-11-2023 End: 31-89-6792Schidtwpykf-Albuterol 0.5 mg-3 mg(2.5 mg base)/3 mL solution for nebulization Discontinued 3 ML INHALATION every 6 to 8 hours as needed for shortness of breath or wheezing 180 90 1 November 25, 2023 7:44am January 16, 2024 9:16am Chronic obstructive pulmonary disease Chronic obstructive pulmonary disease, unspecifiedStart: 08-25-2023 End: 53-15-1658tjrs 1 mL by inhalation every four to six hours as needed for wheezingIpratropium-Albuterol 0.5 mg-3 mg(2.5 mg base)/3 mL solution for nebulization Discontinued 3 ML INHALATION EVERY 4-6 HOURS as needed for shortness of breath or wheezing 90 30 2 November 04, 2023 10:21am November 04, 2023 10:35amStart: 08-03-2021 End: 16-29-7846nmxt 3 mL by inhalation four times dailyalbuterol-ipratropium Inh Jamilah 3 mL UD 3 mL, Inhalation, QID for 30 day(s), 360 mL, Refill(s) 5, [facility]/ pharmacy #[id number], 178, cm, 08/03/21 10:30:00 EDT, Height/Length Dosing, 175, kg, 08/03/21 10:30:00 EDT, Weight Dosing Start Date: 08/03/21 Stop Date: 01/30/22 Status: OrderedStart: 08-03-2021 End: 32-09-0207kase 3 mL by inhalation four times dailyalbuterol-ipratropium Inh Jamilah 3 mL UD 3 mL, Inhalation, QID for 30 day(s), 360 mL, Refill(s) 5, [facility]/ pharmacy #[id number], 178, cm, 08/03/21 10:30:00 EDT, Height/Length Dosing, 175, kg, 06/10/22 10:30:00 EDT, Weight Dosing Start Date: 08/03/21 Stop Date: 01/30/22 Status: OrderedStart: 47-80-2260ahbm 3 mL by inhalation every six hours as needed for wheezingipratropium-albuteroL (DUO-NEB) 0.5-2.5 mg/3 ml nebulizer Take 3 mL by nebulization every 6 (six) hours as needed for wheezing Dx: J44.9 . 270 mL 11 02/16/2020 ActiveStart: 62-10-0978ilswfmurhgh-albuteroL (DUO-NEB) 0.5- 2.5 mg/3 ml nebulizer solution 3 mLStart: 63-34-0873xycm 3 mL by inhalation every six hours as neededipratropium-albuteroL (DUO-NEB) 0.5-2.5 mg/3 ml nebulizer Take 3 mL by nebulization every 6 (six) hours as needed for wheezing Dx: J44.9 . 150 mL 6 06/17/2019 Activeamoxicillin 875 mg / clavulanate 125 mg oral tablet (5 sources)Penicillin-class AntibacterialStart: 04-28-2024 End: 43-25-8148hxts 1 tablet by mouth twice dailyAmoxicillin-Pot Clavulanate 875-125 mg tablet Discontinued 1 TAB PO Twice daily 20 10 0 April 28, 2024 12:00am June 28, 2024 7:30am Dental abscess Periapical abscess without sinus aspirin 81 mg chewable tablet (1 source)Platelet Aggregation Inhibitor, Nonsteroidal Anti-inflammatory Drug Start: 10-09-2019 End: 67-14-6653lcdarmw chewable tablet 324 mgStart: 10-09-2019 End: 60-78-3829trvbrll chewable tablet 324 mgatorvastatin 20 mg oral tablet (20 sources)HMG-CoA Reductase InhibitorStart: 08-18-2023 End: 70-54-9689ztgr 1 tablet by mouth once dailyAtorvastatin 20 mg tablet Discontinued 20 MG PO Daily 90 June 28, 2024 7:41am December 02, 2024 8:22am Hyperlipidemia Hyperlipidemia, unspecifiedStart: 94-95-8632tswpjoyrlcuf (LIPITOR) 20 MG tabletbetamethasone 0.5 mg/ml / clotrimazole 10 mg/ml topical cream (5 sources)Azole Antifungal, CorticosteroidStart: 08-21-2018 End: 55-79-7859wjstrxdopddk-betamethasone (LOTRISONE) cream Apply to jamie rectal area three times a day for four weeks 0 08/21/2018 10/10/2019 Wclcmvkyhnsz91 actuat budesonide 0.16 mg/actuat / formoterol fumarate 0.0045 mg/actuat metered dose inhaler (2 sources)Corticosteroid, beta2-Adrenergic AgonistStart: 03-01-2019 End: 39-32-9279cjmb 2 puff(s) by inhalation twice dailybudesonide-formoterol (Symbicort) 160-4.5 mcg/actuation inhaler Inhale 2 (two) puffs 2 (two) times a day . 1 Inhaler 11 03/01/2019 02/29/2020 Drjuzxgru53 hr buPROPion hydrochloride 150 mg extended release oral tablet (14 sources)AminoketoneStart: 12-22-2017 End: 42-01-3424ttyw 1 tablet by mouth twice dailybuPROPion (WELLBUTRIN SR) 150 MG 12 hr tablet TAKE ONE TABLET BY MOUTH TWICE A DAY 60 tablet 10 12/22/2017 06/15/2018 DiscontinuedStart: 11-25-2016 End: 80-74-2860tlrn 1 tablet by mouth every twelve hoursbuPROPion (WELLBUTRIN SR) 150 MG 12 hr tablet Take 150 mg by mouth. 0 11/25/2016 10/10/2019 Disconti nuedStart: 11-25-2016 End: 18-20-5360jlok 1 tablet by mouth twice dailybuPROPion (WELLBUTRIN SR) 150 MG 12 hr tablet Take 1 (one) tablet (150 mg total) by mouth 2 (two) times a day. 60 tablet 11 11/25/2016 11/25/2017 Activecephalexin 500 mg oral capsule (3 sources)Cephalosporin AntibacterialStart: 08-23-2024 End: 76-44-4387sxxz 1 capsule by mouth three times dailyCephalexin 500 mg capsule Discontinued 500 MG PO Three times daily 30 10 0 August 22, 2024 11:00pm December 02, 2024 7:58am Chronic venous insufficiency Wound of left lower extremity Cellulitis of left lower extremity Venous insufficiency (chronic) (peripheral) Unspecified open wound, left lower leg, initial encounter Cellulitis of left lower limbdicyclomine hydrochloride 20 mg oral tablet (9 sources)AnticholinergicStart: 08-18-2023 End: 25-94-0937nawu 1 tablet by mouth three times dailyDicyclomine 20 mg tablet Discontinued 20 MG PO Three times daily 60 30 0 August 17, 2023 11:00pm November 25, 2023 7:38am Gastritis Gastritis, unspecified, without bleedingdocusate sodium 50 mg / sennosides, [facility] 8.6 mg oral tablet (10 sources)Start: 08-16-2016 End: 51-93-8336daxyf-docusate (SENNA-S) 8.6-50 mg Take by mouth. 0 08/16/2016 10/10/2019 Discontinueddoxycycline monohydrate 100 mg oral tablet (6 sources)Tetracycline-class DrugStart: 02-10-2024 End: 51-03-4454dzbv 1 tablet by mouth twice dailyDoxycycline Monohydrate 100 mg tablet Discontinued 100 MG PO Twice daily 20 10 0 February 10, 2024 12:00am March 30, 2024 8:46am0.5 ml dulaglutide 1.5 mg/ml auto-injector (9 sources)GLP-1 Receptor AgonistStart: 08-18-2023 End: 92-75-9448Chcmmxqrxvs (Trulicity) 0.75 mg/0.5 mL pen injector Discontinued 0.75 MG SUBCUT every week 2.5 30 0Jun2023 11:00pm November 25, 2023 7:38am Type 2 diabetes mellitus Type 2 diabetes mellitus without complications fluticasone propionate 0.05 mg/actuat metered dose nasal spray (20 sources)CorticosteroidStart: 08-18-2023 End: 26-05-0344Oapfkuqxkzu Propionate 50 mcg/actuation spray,suspension Discontinued 2 SPRAY INTRANASAL Daily 16 5Nov2023 9:13am March 30, 2024 8:46amStart: 06-04-2018 End: 98-43-3101vdvl 2 spray(s) nasal route once dailyfluticasone propionate (FLONASE) 50 mcg/actuation nasal spray Instill 2 (two) sprays into each nostril daily . 16 g 12 06/04/2018 ActiveglipiZIDE 10 mg oral tablet (20 sources)SulfonylureaStart: 08-18-2023 End: 18-24-7566pjzq 1 tablet by mouth twice dailyGlipizide 10 mg tablet Discontinued 10 MG PO Twice daily 90 June 28, 2024 7:41am 2024 6:24am Type 2 diabetes mellitus Type 2 diabetes mellitus without complications take 1 tablet by mouth twice daily before mealtimeglipiZIDE (GLUCOTROL) 5 MG tablet Take 5 mg by mouth 2 (two) times a day before meals . 0 Activeammonium lactate 120 mg/ml topical cream (20 sources)Start: 03-30-2024 End: 17-72-7066Lbzvtnac Lactate 12 % cream Discontinued 1 APPLIC TOPICAL Twice daily as needed for dry skin 385 July 12, 2024 6:42am August 17, 2024 9:40am Chronic venous insufficiency Venous insufficiency (chronic) (peripheral)Start: 50-56-2499jsgejnhs lactate (LAC-HYDRIN) 12 % lotionlisinopril 5 mg oral tablet (20 sources)Angiotensin Converting Enzyme InhibitorStart: 08-18-2023 End: 98-66-4199hjfw 1 tablet by mouth once dailyLisinopril 5 mg tablet Discontinued 5 MG PO Daily 90 June 28, 2024 7:41am December 02, 2024 8:22am Hypertension Essential (primary) hypertensiontake 1 tablet by mouth once daily lisinopriL (PRINIVIL,ZESTRIL) 2.5 MG tablet Take 2.5 mg by mouth daily . 0 Activemontelukast 10 mg oral tablet (20 sources)Leukotriene Receptor AntagonistStart: 08-18-2023 End: 83-62-6347prrn 1 tablet by mouth once dailyMontelukast 10 mg tablet Discontinued 10 MG PO Daily 90 June 22, 2024 6:55am December 0258:22am Chronic obstructive pulmonary disease Chronic obstructive pulmonary disease, unspecifiedStart: 11-27-2017 End: 54-80-7794lvyh 1 tablet by mouth once dailymontelukast (SINGULAIR) 10 mg tablet Take 1 (one) tablet (10 mg total) by mouth nightly . 30 nxyvoc02 06/04/2018 Activetake 1 tablet by mouth oncemontelukast (SINGULAIR) 10 mg tablet Take 10 mg by mouth nightly. Activeomeprazole 40 mg delayed release oral capsule (20 sources)Proton Pump InhibitorStart: 08-18-2023 End: 87-38-4181rmkp 1 capsule by mouth once dailyOmeprazole 40 mg capsule,delayed release(DR/EC) Discontinued 40 MG PO Daily 90 June 28, 2024 7:41am December 02, 2024 8:22am Gastroesophageal reflux disease Gastro- esophageal reflux disease withoutesophagitisStart: 75-00-3194fpln 1 capsule by mouth once dailyomeprazole (PRILOSEC) 40 MG capsule Take 40 mg by mouth daily . 0 01/21/2018 Activetake 1 capsule by mouth once dailyomeprazole (PRILOSEC) 20 MG capsule Take 20 mg by mouth daily. ActivePotassium Chloride (Klor-Con M20) 20 mEq tablet,ER particles/crystals (6 sources)Start: 08-18-2023 End: 87-05-3976Fzrarukxy Chloride (Klor-Con M20) 20 mEq tablet,ER particles/crystals Discontinued 20 MEQ PO Daily August 18, 2023 12:00am January 16, 2024 10:16amStart: 08-18-2023 End: 39-56-0932Kzpbwnseu Chloride (Klor-Con M20) 20 mEq tablet,ER particles/crystals Discontinued 20 MEQ PO Daily August 17, 2023 11:00pm January 16, 2024 9:16amStart: 95-27-5610Pedmnvqqx Chloride (Klor-Con M20) 20 mEq tablet,ER particles/crystals Active 20 MEQ PO Daily August 18, 2023 12:00am predniSONE 10 mg oral tablet (20 sources)Start: 11-25-2023 End: 55-08-9484znzw 0.5 tablet by mouth once dailyPrednisone 10 mg tablet Discontinued 10 MG PO daily 21 December 26, 2023 8:20am February 10, 2024 11:17am Take 40 mg for 2 days, 30 mg for 2 days, 20 mg for 2 days, 10 mg for 2 days, 1/2 tablet for 2 daysStart: 08-18-2023 End: 69-81-9080Kyzmaubnlc 10 mg tablet Discontinued 10 MG PO As Directed August 17, 2023 11:00pm August 18, 2023 7:53am see taper instructionsStart: 05-30-2020 End: 89-61-6774ojgltnYTSP (DELTASONE) 20 MG tablet Indications: Chronic obstructive pulmonary disease with acute exacerbation (HCC) TAKE 2 TABLETS BY MOUTH FOR 4 DAYS THEN 1 TABLET FOR 4 DAYS . 12 tablet 0 11/21/2020 ActiveStart: 66-13-4115wvpuruCFFF (DELTASONE) 10 MG tablet Take 2 pills daily for 5 days, then take 1 pill daily for 5 days, and then stop. . 15 tablet 0 11/24/2019 ActiveStart: 34-45-2994bszz 4 tablets by mouth once daily, then take 2 tablets by mouth once daily, then take 1 tablet by mouth once dailypredniSONE (DELTASONE) 10 MG tablet Take 4 tabs PO daily x 3 days, then 2 tabs PO daily x 3 days, then 1 tab PO daily x 3 days . 21 tablet 0 10/10/2019 ActiveStart: 10-10-2019 End: 65-30-0729fizl 2 tablets by mouth once dailypredniSONE (DELTASONE) 20 MG tablet Take 2 (two) tablets (40 mg total) by mouth daily for 5 days Start: 10/10/19. 10 tablet 0 10/10/2019 10/10/2019 DiscontinuedSemaglutide (9 sources)Start: 08-18-2023 End: 17-98-1859dwsylr 1 mg by subcutaneous injection every weekSemaglutide (Ozempic) 1 mg/dose (4 mg/3 mL) pen injector Discontinued 1 MG SUBCUT every week August 17, 2023 11:00pm August 18, 2023 7:50amStart: 08-18-2023 End: 32-73-0280elihza 1 mg by subcutaneous injection every weekSemaglutide (Ozempic) 1 mg/dose (4 mg/3 mL) pen injector Discontinued 1 MG SUBCUT every week August 18, 2023 12:00am August 18, 2023 8:50amSodium Chloride (1 source)Start: 10-09-2019 End: 19-07-3287ubqjem chloride (PF) (NS) flush 5 mLtiZANidine 2 mg oral tablet (6 sources)Central alpha-2 Adrenergic AgonistStart: 02-10-2024 End: 20-49-5674hust 1 tablet by mouth every eight hours as neededTizanidine 2 mg tablet Discontinued 2 MG PO Every 8 hours as needed for muscle spasticity 30 February 10, 2024 12:00am August 23, 2024 2:25pm Low back pain Muscle spasm Low back pain, unspecified Other muscle spasmtriamcinolone acetonide 1 mg/ml topical cream (3 sources)CorticosteroidStart: 02-12-2020 End: 97-46-9984zcgckuicbytgn (KENALOG) 0.1 % creamumeclidinium (2 sources)AnticholinergicStart: 90-35-4378uevc 1 puff(s) by inhalation once dailyumeclidinium (Incruse Ellipta) 62.5 mcg/actuation DsDv Inhale 1 puff daily . 1 each 03/01/2019 SuspendedStart: 18-06-8120kycu 1 puff(s) by inhalation once dailyumeclidinium (Incruse Ellipta) 62.5 mcg/actuation DsDv Inhale 1 puff daily . 1 each 03/01/2019 Activezolpidem tartrate 10 mg oral tablet (1 source)gamma-Aminobutyric Acid-ergic AgonistStart: 12-06-2024 End: 68-32-7644qqcn 1 tablet by mouth once daily at bedtime as needed for sleep Zolpidem (Ambien) 10 mg tablet Discontinued 10 MG PO Daily at bedtime as needed for sleep 1 December 05, 2024 11:00pm January 03, 2025 8:49am Sleep apnea Sleep apnea, unspecified take prior to sleep study Problems Active Problems Problem ClassificationProblemDateDocumented DateEpisodic/ChronicChronic obstructive pulmonary disease and bronchiectasis (20 sources)Centriacinar emphysema; Translations: [Acute exacerbation of chronic obstructive airways disease]Onset: 449820-33-9235TlnhzcxSsdayvpp mellitus with complications (4 sources)Diabetic foot ulcer; Translations: [Other specified diabetes mellitus with foot ulcer]38-45-9267HebnhyoUmzefskg mellitus without complication (19 sources)Type 2 diabetes mellitus; Translations: [Type 2 diabetes mellitus without complications]32-61-4028AzyhuwjCrnozntce of lipid metabolism (16 sources)Hyperlipidemia; Translations: [Hyperlipidemia, unspecified] 79-20-7675JtmcmmtWcjzbntqi of teeth and jaw (8 sources)Toothache; Translations: [Dental abscess]74-82-6520VekjjlrlMplmjdvch of teeth and jaw (2 sources)Other specified disorders of teeth and supporting structures; Translations: [Other specified disorders of teeth and supporting structures] Onset: 68-85-0599Lwqnvdseqd disorders (7 sources)Gastroesophageal reflux disease; Translations: [Gastro-esophageal reflux disease without esophagitis]61-67-3749VdrachiVjglqxtpb hypertension (16 sources)Hypertensive disorder; Translations: [Essential (primary) hypertension]91-02-9406ZshdqfbPwbbyfnnu and duodenitis (8 sources)Gastritis; Translations: [Gastritis, unspecified, without bleeding] 55-39-7095VsldaphcVowvawispac chest pain (1 source)Chest pain; Translations: [Chest pain, unspecified type]EpisodicOpen wounds of extremities (9 sources)Unspecified open wound, right lower leg, initial encounter; Translations: [Injury of right leg]Onset: 203743-62-7811PltxelknShsf wounds of extremities (4 sources)Injury of left leg; Translations: [Unspecified open wound, left lower leg, initial encounter]64-52-1872AluozobvIzzim connective tissue disease (6 sources)Spasm; Translations: [Other muscle spasm]16-57-4284KcwjcclsNzuzv connective tissue disease (3 sources)Foot pain; Translations: [Pain in right foot]48-15-9091FiwdzconWcupy connective tissue disease (2 sources)Other muscle spasm; Translations: [Spasm of muscle]67-36-1164Qdpgookp Other connective tissue disease (3 sources)Pain in right foot; Translations: [Pain in right foot]12-26-2023 EpisodicOther diseases of veins and lymphatics (9 sources)Vascular insufficiency; Translations: [Venous insufficiency (chronic) (peripheral)]34-38-0166FstnuqztJcwwy diseases of veins and lymphatics (7 sources)Peripheral venous insufficiency; Translations: [Venous insufficiency (chronic) (peripheral)]27-05-3264VltyrlriWcbsx diseases of veins and lymphatics (5 sources)Venous insufficiency (chronic) (peripheral); Translations: [Venous (peripheral) insufficiency, unspecified]65-35-1066EzbvbiooZiztf screening for suspected conditions (not mental disorders or infectious disease) (18 sources)Patient encounter status; Translations: [Encounter for screening for malignant neoplasm of prostate]86-66-7887DsoqwhbtLmrii upper respiratory disease (2 sources)Allergic rhinitis; Translations: [Allergic rhinitis, unspecified] 26-55-7591AtwglyiGlexqvgm codes; unclassified (10 sources)Sleep apnea; Translations: [Sleep apnea, unspecified]08-18-2023 ChronicResidual codes; unclassified (4 sources)Sleep apnea, unspecified; Translations: [Unspecified sleep apnea] 59-64-6848UnusvsrFsidcrlgw or history of mental health and substance abuse (16 sources)Tobacco user; Translations: [Tobacco abuse disorder]Onset: 068455-45-0920BguisajZmdy and subcutaneous tissue infections (12 sources)Cellulitis of lower limb; Translations: [Cellulitis of unspecified part of limb]68-49-2395RvryakllKjwhdyhatvm; intervertebral disc disorders; other back problems (8 sources)Low back pain; Translations: [Low back pain]56-11-8580Dwnsqssp Substance-related disorders (20 sources)Cigarette smoker ; Translations: [Nicotine dependence, cigarettes, uncomplicated]Onset: 462618-28-9468TfobucnGbjgdasttmwo (20 sources)Obstructive sleep apnea syndrome; Translations: [Obstructive sleep apnea (adult) (pediatric)]Onset: 741418-04-8664VigekbnZdvghehhzjfs (1 source)ERRONEOUS ENCOUNTER--DISREGARD Past or Other Problems Problem ClassificationProblemDateDocumented DateEpisodic/ChronicOther lower respiratory disease (17 sources)Paroxysmal nocturnal dyspnea; Translations: [Dyspnea, unspecified] Onset: 939273-70-0963BrrsdbuuKtcjajnh codes; unclassified (6 sources)Tobacco user; Translations: [Tobacco use]Onset: 12-42-6629Qqgponzv Residual codes; unclassified (1 source)Bilateral lower limb edema; Translations: [Localized edema]Onset: 431674-34-6071VjyyzaciOaurkstjb-wxlrpte disorders (13 sources)Cigarette smoker ; Translations: [Cigarette Smoker]Onset: 04-01-2017 29-09-8760JqilvnkqNlezobiahedm (20 sources)Edema of lower extremity; Translations: [Cigarette smoker ]Onset: 69-63-973230378678-11-5717Rmgxebvm Results Test NameValueInterpretationReference NndxsNdlztpxiSqG4n HPLC (Bld) [Mass fraction]Ordered By: Jazz Hyde on 75-15-2867XgI5a (Bld) [Mass fraction]7.2 %[facility] HospitalHbA1c HPLC (Bld) [Mass fraction] on 59-47-6293InG9z (Bld) [Mass fraction]6.7 %[facility] HbA1c HPLC (Bld) [Mass fraction]on 91-16-7440VlJ2z (Bld) [Mass fraction] Hemoglobin A1c/Hemoglobin.total in Blood by HPLCKettering Health SpringfieldAerobic Cultureon 39-03-5609Allsvry CultureRight lower leg wound Result Tab Codes Light Normal Skin Breana 2 Days Right lower leg wound No Anaerobes Isolated 3 Days Right lower leg wound Gram Stain Result 1+ White Blood Cells No Bacteria Seen PERFORMED BY: [place] [address] PATHOLOGIST STATION ENGINEER GAIL KAUFMAN M.D.NormalThe Atrium Health Physician GroupComment on above: Performed By: #### AERC, GS #### [place] [address] USAAerobic cultureOrdered By: Jazz Hyde on 99-73-8722Pyqicxda identified Aer cx Nom (Unsp spec)Aerobic cultureOhio Valley HospitalBacteria identified Aer cx Nom (Unsp spec)Aerobic culture [facility] HospitalAnaerobic cultureOrdered By: Jazz Hyde on 34-09-8732Hjyjpscw identified Anaer cx Nom (Unsp spec)Anaerobic cultureOhio Valley HospitalBacteria identified Anaer cx Nom (Unsp spec)Anaerobic cultureOhio Valley HospitalGram Stainon 02-10-2024 Microscopic observation Gram stain Nom (Unsp spec)Right lower leg wound Gram Stain Result 1+ White Blood Cells No Bacteria Seen PERFORMED BY: [address] [address] PATHOLOGIST STATION ENGINEER GAIL KAUFMAN M.D.NormalThe Atrium Health Physician GroupComment on above: Performed By: #### AERC, #### [facility] [address] [place] [address] USAGram stain microscopyOrdered By: Jazz Hyde on 11-38-8989Guugywwwedg observation Gram stain Nom (Unsp spec)Gram stain microscopyOhio Valley HospitalMicroscopic observation Gram stain Nom (Unsp spec)Gram stain microscopyOhio Valley HospitalHbA1c HPLC (Bld) [Mass fraction]on 16-67-9321JyZ7z (Bld) [Mass fraction]8.4 %[facility] HospitalPhysician Orderon 38-67-9655Ffvqsqiph Order [id number]#1.00TIFAvita Health System Galion HospitalConsent for Treatmenton 14-67-3820Dbiqecr for Treatment [id number]#1.00TIFAvita Health System Galion HospitalPhysician Orderon 06-84-8536Kozrcuick Order [id number]#1.00[facility] HospitalXR Chest 2 Viewson 60-92-7692RZ Chest 2 ViewsExam Date/Time: 12/23/2022 11:45 EDT Reason for Exam: [...] Ka,r in mGy = . DAP = .[facility] HospitalConsent for Treatmenton 08-16-2022 Consent for [id number]#1.00CD:127[facility] HospitalPhysician Orderon 40-04-4150Gursrzwkt Order [id number]#1.00CD:127NoFulton County Health CenterXR Chest 2 Viewson 76-21-5278JP Chest 2 ViewsExam Date/Time: 08/16/2022 10:45 EDT Reason for Exam: [...] Ka,r in mGy = na DAP = naNormalProtestant Deaconess HospitalCoding Summary.on 74-99-0561Iijnsr Summary. CD:368165Rzsd95KCy2rDt+PGhlYWQ+BZ4PFRFgV82cfUOetR9xQ1AJGMmPEzarGZKDILbNFqXxdxRqA P9bvNIvEHBk [file] IUJoK95e (more content not included)...[facility] HospitalConsent for Treatmenton 51-16-7017Pkkjeww for Treatment [id number]#1.00CD:127NoFulton County Health CenterPhysician Orderon 20-08-1037Eqiilemtu Order [id number]#1.00CD:127NoFulton County Health CenterXR Chest 2 Viewson 88-46-4727JW Chest 2 ViewsExam Date/Time: 05/22/2022 09:39 EDT Reason for Exam: [...] Ka,r in mGy = na DAP = naNorSt. Rita's HospitalCoding Summary.on 30-64-8037Mpqhwr Summary. CD:542828JA:4696729ANt9iDh+PGhlYWQ+BX1JPMUbF89qeKTtrQ7eJ2JOBVuMAikuLOOBTCdRWpExq eEfTU1naSGqOOTe [file] ZXIt (more content not included)...NormalProtestant Deaconess HospitalConsent for Treatmenton 60-15-0571Pidqitd for Treatment [id number]#1.00CD:127NormalProtestant Deaconess HospitalPhysician Orderon 63-54-1175Btbgkffcj Order [id number]#1.00CD:127[facility] HospitalXR Chest 2 Viewson 14-97-8740KV Chest 2 ViewsExam Date/Time: 05/06/2022 10:47 EDT Reason for Exam: [...] Ka,r in mGy = na DAP = naNorSt. Rita's HospitalPOC COVID-19, MOLECULARon 10-10-2019 SARS-COV-2 (PERES ID)Not DetectedNormalNortheastern Vermont Regional HospitalComment on above:Result Comment: This test was performed under the [...] at the following links: For Healthcare Providers: https://www.fda.gov/media/869096/download For Patients: https://www.fda.gov/media/411610/downloadPerformed By: #### [id number] #### OED FSED POCT LAB [address] [place] [address] Rao Pérez, Ph.d. [id number] Troponin Ion 34-08-1712Gwztdabmbhgjwu and review of laboratory resultsNormalOhioHealthTroponin I.cardiac [Mass/Vol]ng/mL<0.05 ng/mLOhioHealthXR CHEST PA/APon 89-79-6861SU CHEST PA/APEXAMINATION: ONE X-RAY VIEW OF THE CHEST 10/09/2019 [...] are clear. IMPRESSION: No acute cardiopulmonary disease. [employer] Workstation ID: [id number] Dictated by: CHACORTA ROCHA on Sat Oct 09, 2019 11:08:51 PM EDT Transcribed by: WILLIAMS THOMASON on Sat Oct 09, 2019 11:24:16 PM EDT Finalized by: CHACORTA ROCHA on Mon 2019 6:06:07 AM [facility] Hospital of AugustaComment on above:Order Comment: Injury/Trauma or Illness?:Illness/Other How long have you had these symptoms (acute/chronic)?:Acute Reason for exam?:sob, cough History of cancer?: Surgeries, chemotherapy, or radiation?: Type of Exam?:Initial Additional signs and symptoms?:ECG 12-LEADon 29-29-3732GtbgiquMyah Valle MD 10/09/2019 11:34 PM EKG 12-lead Date/Time: 10/09/2019 11:34 PM Performed by: Myah Valle MD Authorized by: Myah Valle MD Interpreted by ED attending physician Comparison: compared with previous ECG from 01/23/2018 Similar to previous ECGRhythm: sinus rhythm BPM: 85 Conduction: LAFB QRS axis: left T Inversion: aVL TN Interval: 168 QRS Interval: 88 QT Interval: 433 Clinical impression: non-specific ECGOhioHealthPOC CBC and Differentialon 42-37-0708Pbmbxvtrj (Bld) [#/Vol]0.06 10*3/uLOhioHealth Basophils/100 WBC (Bld)0.6 %OhioHealthEosinophils (Bld) [#/Vol]0.17 10*3/uL OhioHealthEosinophils/100 WBC (Bld)1.6 %[facility] HospitalErythrocyte distribution width (RBC) [Entitic vol]15.2 %High11.6 - 14.8 %OhioHealthHematocrit (Bld) [Volume fraction]45.8 %41 - 53 %OhioHealthHemoglobin (Bld) [Mass/Vol]15.3 g/dL13.5 - 17.5 g/dLOhioHealthImmature granulocytes (Bld) [#/Vol]0.07 10*3/uLOhioHealth Immature granulocytes/100 WBC (Bld)0.70 %OhioHealthComment on above:The IG parameter is the percentage of metamyelocytes, myelocytes and promyelocytes. An immature granulocyte count (IG) of 1% or more suggests the possibility of infection, an IG count of 3% is very likely related to an infection. Interpretation and review of laboratory resultsAbnormalOhioHealthLymphocytes (Bld) [#/Vol]1.91 10*3/uLOhioHealthLymphocytes/100 WBC (Bld)18.2 %[facility] HospitalMCH (RBC) [Entitic mass]27.8 pg26 - 34 pgOhioHealthMCHC (RBC) [Mass/Vol]33.4 g/dL31 - 37 g/dLOhioHealthMCV (RBC) [Entitic vol]83.1 fL80 - 100 fLOhioHealthMonocytes (Bld) [#/Vol]0.65 10*3/uLOhioHealthMonocytes/100 WBC (Bld)6.2 %[facility] Neutrophils (Bld) [#/Vol]7.65 10*3/uLHighOhioHealthNeutrophils/100 WBC (Bld)72.7 %OhioHealthPlatelet mean volume (Bld) [Entitic vol]10.0 fL9.4 - 12.4 fL OhioHealthPlatelets (Bld) [#/Vol]166 10*3/uLOhioHealthRBC (Bld) [#/Vol]5.51 10*6/uLOhioHealthWBC (Bld) [#/Vol]10.51 10*3/uLOhioHealthPOC Covid-19, Molecular on 09-74-7461Ffqvtjegsffres and review of laboratory resultsNormalOhioHealth QKVG-MkZ-2Gqz DetectedNot DetectedOhioHealthComment on above:This test was performed under the FDA's Emergency [...] at the following links: For Healthcare Providers: https://www.fda.gov/media/569838/download For Patients: https://www.fda.gov/media/671030/download POC Troponin Ion 83-82-6143Uuiairxlfdjsnq and review of laboratory resultsNormal OhioHealthTroponin I.cardiac [Mass/Vol]ng/mL<0.05 ng/mLOhioHealthPOC Venous Blood Gases with Full Panelon 38-77-8630Mtvj excess Calc (BldV) [Moles/Vol]0.9 mmol/LOhioHealthCalcium.ionized [Mass/Vol]4.1 mg/dLLow4.5 - 5.3 mg/dLOhioHealth Chloride [Moles/Vol]101 mmol/L98 - 108 mmol/LOhioHealthCO2 (BldV) [Partial pressure]46.0 mm[Hg]OhioHealthCreatinine [Mass/Vol]0.84 mg/dL0.50 - 1.30 OhioHealthGFR/1.73 sq M predicted among non-blacks MDRD (S/P/Bld) [Vol rate/Area]The eGFR should be used for monitoring renal function only and not for medication dosing. Specimenscollected in a lithium heparin tube may show erroneous pO2, pCO2 and related calculations due to aerobic handling. If the most accurate venous blood gas results are needed, use a heparinized blood gas syringe.OhioHealthGFR/1.73 sq M.predicted MDRD (S/P/Bld) [Vol rate/Area]103 mL/min/{1.73_m2}>=60 mL/min/1.73 d1YsseEffsdxXncybpo [Mass/Vol]202 mg/yEZycr84 - 99 mg/dLOhioHealthHCO3 (Bld) [Moles/Vol]26.7 mmol/L24 - 28 mmol/LOhioHealth Hematocrit (Bld) [Volume fraction]46 %41 - 53 %[facility] HospitalHemoglobin (Bld) [Mass/Vol]15.5 g/dL13.5 - 17.5 g/dLOhioHealthInterpretation and review of laboratory resultsAbnormalOhioHealthLactate [Moles/Vol]1.6 mmol/L0.6 - 2 mmol/L [facility] HospitalOxygen (BldV) [Partial pressure]39 mm[Hg][facility] HospitalOxygen saturation in Venous blood71.7 %High40 - 70 %[facility] HospitalpH (BldV)7.37 [pH][facility] Potassium [Moles/Vol]4.1 mmol/L3.5 - 5.1 mmol/LOhioHealthSodium [Moles/Vol]137 mmol/L135 - 145 mmol/LOhioHealthUrea nitrogen [Mass/Vol]8 mg/dL8 - 25 mg/dL OhioZanesville City HospitalComplete PFTon 03-57-2363TP Adj Pre19.5 mL/mmHg/minInvalid Interpretation Code1 - 2CAREF[facility] PFT LABDLCO %Pre Rugeaqwbq60 %Invalid Interpretation Code0 - 300 %[facility] PFT LABDLCO Pre19.5 mL/mmHg/minInvalid Interpretation CodeCAREFUSION PFT LABDLCO Hrhacjxqg54 mL/mmHg/minInvalid Interpretation Code0.05 - 99.99[facility] PFT LABDLCO/VA %Pre Icpsmzvoo887 % Invalid Interpretation CodeCAREFUSION PFT LABDLCO/VA Pre4.57 mL/mHg/min/LInvalid Interpretation CodeCAREFUSION PFT LABDLCO/VA Predicted4.18 mL/mHg/min/LInvalid Interpretation CodeCAREFUSION PFT LABERV Pre0.39 LitersInvalid Interpretation Code0.05 - 9.99[facility] PFT LABFEV1 %Change1 %Invalid Interpretation Code0 - 300 %[facility] PFT LABFEV1 %Post Rcyacpnlv35 %Invalid Interpretation Code0 - 300 %[facility] PFT LABFEV1 %Pre Rkiccgfhh54 %Invalid Interpretation Code0 - 300 %[facility] PFT LABFEV1 Post2.12 LitersInvalid Interpretation Code0 - 12 [facility] PFT LABFEV1 Pre2.1 LitersInvalid Interpretation Code0 - 12C[facility] PFT LABFEV1 Predicted4.13 LitersInvalid Interpretation Code0.05 - 9.99[facility] PFT LABFEV1/FVC %Change-1 %Invalid Interpretation CodeCAREFUSION PFT LAB FEV1/FVC %Post Tlkadxhoe04 %Invalid Interpretation CodeCAREFUSION PFT LAB FEV1/FVC %Pre Aygxfqnjf23 %Invalid Interpretation CodeCAREFUSION PFT LABFEV1/FVC Post70 %Invalid Interpretation Code0 - 12C[facility] PFT LABFEV1/FVC Pre71 % Invalid Interpretation Code0 - 12C[facility] PFT LABFEV1/FVC Aalbzjsgg75 %Invalid Interpretation Code1 - 99 %[facility] PFT LABFRC N2 %Pre Jsdpsjfpa03 %Invalid Interpretation Code0 - 300 %[facility] PFT LABFRC N2 Pre2.46 LitersInvalid Interpretation Code0.05 - 9.99[facility] PFT LABFRC N2 Predicted2.61 Liters Invalid Interpretation Code0.05 - 9.99[facility] PFT LABFRC PL Predicted2.61 LitersInvalid Interpretation Code0.05 - 9.99[facility] PFT LABFVC %Change2 % Invalid Interpretation Code0 - 300 %[facility] PFT LABFVC %Post Zoxgrxuig07 % Invalid Interpretation Code0 - 300 %[facility] PFT LABFVC %Pre Ohqfvlnen75 % Invalid Interpretation Code0 - 300 %[facility] PFT LABFVC Post3.02 LitersInvalid Interpretation Code0 - 12C[facility] PFT LABFVC Pre2.96 LitersInvalid Interpretation Code0 - 12C[facility] PFT LABFVC Predicted5.28 LitersInvalid Interpretation Code0.05 - 9.99[facility] PFT LABMVV %Pre Xkkxgsfcm08 %Invalid Interpretation Code0 - 300 %[facility] PFT LABMVV Pre88 L/minInvalid Interpretation Code0 - 300 L/minCAREFUSION PFT LABMVV Tssbiwedc510 L/minInvalid Interpretation Code0 - 300 L/minCAREFUSION PFT LABPE max Ihyeswroh343 cmH2O Invalid Interpretation CodeCAREFUSION PFT LABPI max Nzrggyoye427 cdE7VRqlnfsl Interpretation CodeCAREFUSION PFT LABRV %Pre Wssucpilh27 %Invalid Interpretation Code0 - 300 %[facility] PFT LABRV Pre2 LitersInvalid Interpretation Code0.05 - 9.99[facility] PFT LABRV Predicted2.22 LitersInvalid Interpretation Code0.05 - 9.99[facility] PFT LABTLC %Pre Xaqpczkcw03 %Invalid Interpretation Code0 - 300 % [facility] PFT LABTLC Pre4.96 LitersInvalid Interpretation Code0.05 - 11.99 [facility] PFT LABTLC Predicted7.09 LitersInvalid Interpretation Code0.05 - 11.99CARE[facility] PFT LABVC %Pre Ogvouwqyn20 %Invalid Interpretation Code0 - 300 % [facility] PFT LABVC Pre2.96 LitersInvalid Interpretation Code0.05 - 9.99 [facility] PFT LABVC Predicted5.28 LitersInvalid Interpretation Code0.05 - 9.99 [facility] PFT LABVol Extrap/FVC % Change3 %Invalid Interpretation Code0 - 300 % [facility] PFT LABVol Extrap/FVC Post5 %Invalid Interpretation Code0 - 12 [facility] PFT LABVol Extrap/FVC Pre5 %Invalid Interpretation Code0 - 12 [facility] PFT LABComplete PFTPFT Interpretation Indications: Dyspnea Spirometry: Spirometry demonstrates a moderate obstruction.There is no significant improvement after bronchodilator use. Lung Volumes: Lung volumes show a moderate restriction. DLCO: The diffusing capacity for carbon monoxide (DLCO) demonstrates a moderate decrease. The DLCO corrects when alveolar volume is considered.Invalid Interpretation CodeCAREFUSION PFT LAB Vital Signs Date TimeVital SignValuePerforming MmwladglwSeggzhey13-44-5826 08:24-0500Body ovqzcg804.8 cmJazz Hyde APRN Work Phone: [facility]11-10-2025 08:24-0500 Body mass index (BMI) [Ratio]52.3 kg/a9FakwzzcjJazz Hyde APRN Work Phone: [phone]11-10-2025 08:24-0500 Body qsouqbwzcai66.8 [degF]Jazz Hyde APRN Work Phone: [facility]11-10-2025 08:24-0500 Body ogpkpu564.56 kgJazz Hyde APRN Work Phone: [phone]11-10-2025 08:24-0500 Diastolic blood mm[Hg]Jazz Hyde APRN Work Phone: [phone]11-10-2025 08:24-0500 Heart rate79 /minJazz Doyler DISTRIBUTION ENGINEERING TECHNOLOGIST Work Phone: [phone] [place], [place] 9860511-10-2025 08:24-0500 SaO2% (BldA) [Mass fraction]95 %Jazz Doyler DISTRIBUTION ENGINEERING TECHNOLOGIST Work Phone: [phone] [place], [place] 9860511-10-2025 08:24-0500 Systolic blood nidhfemb517 mm[Hg]Jazz Mary Ellen DISTRIBUTION ENGINEERING TECHNOLOGIST Work Phone: [phone] [place], [place] 9860510-09-2025 08:52-0400 Body yyggaf066.8 cmCyndimelony Hyde DISTRIBUTION ENGINEERING TECHNOLOGIST Work Phone: [phone] [place], [place] 9860510-09-2025 08:52-0400 Body mass index (BMI) [Ratio]52.2 kg/i0Whdslgaibhavesh Kwonr DISTRIBUTION ENGINEERING TECHNOLOGIST Work Phone: [phone] [place], [place] 9860510-09-2025 08:52-0400 Body ixhtvxwdeab47.1 [degF]Jazz Mary Ellen DISTRIBUTION ENGINEERING TECHNOLOGIST Work Phone: [phone] [place], [place] 9860510-09-2025 08:52-0400 Body yvfgvd895.1 kgJazz Mosesjuanacher DISTRIBUTION ENGINEERING TECHNOLOGIST Work Phone: [phone] [place], [place] 9860510-09-2025 08:52-0400 Diastolic blood pdvnzomz32 mm[Hg]Jazz Mary Ellen DISTRIBUTION ENGINEERING TECHNOLOGIST Work Phone: [phone] [place], [place] 9860510-09-2025 08:52-0400 Heart rate84 /minJazz Jermanacher DISTRIBUTION ENGINEERING TECHNOLOGIST Work Phone: [phone] [place], [place] 9860510-09-2025 08:52-0400 SaO2% (BldA) [Mass fraction]92 %Jazz Mary Ellen DISTRIBUTION ENGINEERING TECHNOLOGIST Work Phone: [phone] [place], [place] 9860510-09-2025 08:52-0400 Systolic blood mm[Hg]Jazz Rohrbacher DISTRIBUTION ENGINEERING TECHNOLOGIST Work Phone: [facility]06-30-2025 15:24-0400 Body yozqpp532.8 cmJazz Hyde DISTRIBUTION ENGINEERING TECHNOLOGIST Work Phone: [phone]06-30-2025 15:24-0400 Body mass index (BMI) [Ratio]51.7 kg/a3EhqqytvaJazz Stollacher DISTRIBUTION ENGINEERING TECHNOLOGIST Work Phone: [phone]06-30-2025 15:24-0400 Body vzxeay193.74 kgJazz Hyde DISTRIBUTION ENGINEERING TECHNOLOGIST Work Phone: [phone]06-30-2025 15:24-0400 Diastolic blood kfvzkamn32 mm[Hg]Jazz Mosesjuarez DISTRIBUTION ENGINEERING TECHNOLOGIST Work Phone: [phone]91[facility]06-30-2025 15:24-0400 Heart rate81 /Gemma Kwonr DISTRIBUTION ENGINEERING TECHNOLOGIST Work Phone: [phone]56[facility]06-30-2025 15:24-0400 Respiratory rate12 /Gemma Kwonr DISTRIBUTION ENGINEERING TECHNOLOGIST Work Phone: [phone] [place], [place] 8473106-30-2025 15:24-0400 SaO2% (BldA) [Mass fraction]95 %Jazz Mosesjuarez DISTRIBUTION ENGINEERING TECHNOLOGIST Work Phone: [phone]18[facility]06-30-2025 15:24-0400 Systolic blood dhdrulkn071 mm[Hg]Jazz Mosesjuarez DISTRIBUTION ENGINEERING TECHNOLOGIST Work Phone: [phone] [place], [place] 8473105-05-2025 08:27-0400 Body xdoafa898.8 cm[facility]05-05-2025 08:27-0400Body mass index (BMI) [Ratio]52.6 kg/b3PmcjwvizwOhio Valley Hospital05-05-2025 08:27-0400Body smrjxxawoga77.9 [degF][facility]05-05-2025 08:270400Body mdqyam105.46 kg[facility]05-05-2025 08:27-0400Diastolic blood wiyrsyby61 mm[Hg][facility] 06-28-2024 08:27-0400Heart rate60 /[facility] 06-28-2024 08:27-7129XfO9% (BldA) [Mass fraction]94 %[facility]05-05-2025 08:27-0400Systolic blood skwaywyc218 mm[Hg][facility]03-05-2025 13:07-0500Body ejcwgg360.8 cmCyndimelony Aureliajuanacher DISTRIBUTION ENGINEERING TECHNOLOGIST Work Phone: [phone]03-05-2025 13:07-0500 Body mass index (BMI) [Ratio]52.2 kg/u7Efcvoviw Rohjuanacher DISTRIBUTION ENGINEERING TECHNOLOGIST Work Phone: [phone]03-05-2025 13:07-0500 Body vbcldljpuvs76.4 [degF]Jazz Hyde DISTRIBUTION ENGINEERING TECHNOLOGIST Work Phone: [phone]03-05-2025 13:07-0500 Body .1 kgJazz Aureliarbacher DISTRIBUTION ENGINEERING TECHNOLOGIST Work Phone: [phone]03-05-2025 13:07-0500 Diastolic blood mukrtjwf38 mm[Hg]Jazz Hyde DISTRIBUTION ENGINEERING TECHNOLOGIST Work Phone: [phone] [place], [place] 8473103-05-2025 13:07-0500 Heart rate82 /Gabeleonormelony Mary Ellen DISTRIBUTION ENGINEERING TECHNOLOGIST Work Phone: [phone]03-05-2025 13:07-0500 SaO2% (BldA) [Mass fraction]93 %Jazz Hyde DISTRIBUTION ENGINEERING TECHNOLOGIST Work Phone: [phone]03-05-2025 13:07-0500 Systolic blood jbvbacdm104 mm[Hg]Jazz Hyde DISTRIBUTION ENGINEERING TECHNOLOGIST Work Phone: [phone]02-04-2025 08:26-0500 Body .8 cmJazz Mosesjuanacher DISTRIBUTION ENGINEERING TECHNOLOGIST Work Phone: [phone] [place], [place] 9860502-04-2025 08:26-0500 Body mass index (BMI) [Ratio]54.1 kg/q6AeqwubwyJazz Kwonr DISTRIBUTION ENGINEERING TECHNOLOGIST Work Phone: [phone] [place], [place] 9860502-04-2025 08:26-0500 Body atbylqtnaym46.8 [degF]Jazz Mary Ellen DISTRIBUTION ENGINEERING TECHNOLOGIST Work Phone: [phone] [place], [place] 9860502-04-2025 08:26-0500 Body uknsps868.11 kgJazz Mosesjuanreemafaraz DISTRIBUTION ENGINEERING TECHNOLOGIST Work Phone: [phone] [place], [place] 9860502-04-2025 08:26-0500 Diastolic blood mm[Hg]Jazz Mary Ellen DISTRIBUTION ENGINEERING TECHNOLOGIST Work Phone: [phone] [place], [place] 9860502-04-2025 08:26-0500 Heart bdsa169 /minJazz Mosesjuarez DISTRIBUTION ENGINEERING TECHNOLOGIST Work Phone: [phone] [place], [place] 9860502-04-2025 08:26-0500 SaO2% (BldA) [Mass fraction]90 %Jazz Mosesjuarez DISTRIBUTION ENGINEERING TECHNOLOGIST Work Phone: [phone] [place], [place] 9860502-04-2025 08:26-0500 Systolic blood mm[Hg]Jazz Mosesjuarez DISTRIBUTION ENGINEERING TECHNOLOGIST Work Phone: [phone] [place], [place] 9860512-17-2024 10:53-0500 Body wmobyu289.8 cmJazz Mosesjuanreemafaraz DISTRIBUTION ENGINEERING TECHNOLOGIST Work Phone: [phone] [place], [place] 9860512-17-2024 10:53-0500 Body mass index (BMI) [Ratio]53.7 kg/j8BmoolkndJazz Mosesjuanreemar DISTRIBUTION ENGINEERING TECHNOLOGIST Work Phone: [phone] [place], [place] 9860512-17-2024 10:53-0500 Body .3 [degF]Jazz Mary Ellen DISTRIBUTION ENGINEERING TECHNOLOGIST Work Phone: [phone] [place], [place] 9860512-17-2024 10:53-0500 Body xcieme087.81 kgJazz Hyde DISTRIBUTION ENGINEERING TECHNOLOGIST Work Phone: [facility]12-17-2024 10:53-0500 Diastolic blood zikyxmpg66 mm[Hg]Jazz Hyde DISTRIBUTION ENGINEERING TECHNOLOGIST Work Phone: [facility]12-17-2024 10:53-0500 Heart rate81 /Gemma Hyde DISTRIBUTION ENGINEERING TECHNOLOGIST Work Phone: [facility]12-17-2024 10:53-0500 SaO2% (BldA) [Mass fraction]92 %Jazz Mosesjuarez DISTRIBUTION ENGINEERING TECHNOLOGIST Work Phone: [facility]12-17-2024 10:53-0500 Systolic blood pyxtujkm181 mm[Hg]Jazz Kwonfaraz DISTRIBUTION ENGINEERING TECHNOLOGIST Work Phone: [facility]11-01-2024 08:58-0400 Body ppaffz369.8 cm[facility]11-01-2024 08:58-0400Body mass index (BMI) [Ratio]53.8 kg/k4WxvxmfpleOhio Valley Hospital11-01-2024 08:58-0400Body dqmngveihnk72.6 [degF][facility]11-01-2024 08:58-0400Body geytmi932.23 kg[facility]11-01-2024 08:58-0400Diastolic blood nsvduumb16 mm[Hg][facility] 12-26-2023 08:58-0400Heart vijy471 /minOhio Valley Hospital 12-26-2023 08:58-9510UyN4% (BldA) [Mass fraction]93 %[facility]11-01-2024 08:58-0400Systolic blood kbcypwyy193 mm[Hg][facility]10-01-2024 08:33-0400Body pdgpdy411.8 cm[facility]10-01-2024 08:33-0400Body mass index (BMI) [Ratio]53.4 kg/m4OzgcvtklzOhio Valley Hospital10-01-2024 08:33-0400Body tcuqgqgtppl07.3 [degF][facility]10-01-2024 08:33-0400Body ppgihb907.79 kg[facility]10-01-2024 08:33-0400Diastolic blood ezxhvczj75 mm[Hg] [facility]10-01-2024 08:33-0400Heart rate72 /[facility]10-01-2024 08:33-2529GyV6% (BldA) [Mass fraction]90 % [facility]10-01-2024 08:33-0400Systolic blood mm[Hg][facility]06-24-2024 08:28-0400Body hhitdb791.8 cm [facility]06-24-2024 08:28-0400Body mass index (BMI) [Ratio]52.4 kg/h5CpnwtwwycOhio Valley Hospital06-24-2024 08:28-0400Body mzrqhu163.01 kg[facility]06-24-2024 08:28-0400Diastolic blood mm[Hg][facility]06-24-2024 08:28-0400 Heart rate85 /[facility]06-24-2024 08:28-0708RpH6% (BldA) [Mass fraction]94 %[facility]06-24-2024 08:28-0400 Systolic blood mm[Hg][facility]06-10-2022 10:25-0400Blood Pressure LocationBasem Eid [facility]06-10-2022 10:25-0400 Diastolic blood jsiwaidb58 mm[Hg]Basem Eid [facility]06-10-2022 10:25-0400Heart rate87 /minBasem Eid [facility]06-10-2022 10:25-6079XwX3% (BldA) [Mass fraction]95 %Basem Eid [facility]06-10-2022 10:25-0400 Systolic blood kscycphm046 mm[Hg]Hansa Eid [facility]08-16-2020 00:30-0400Pulse Bxjooqgg40 %Myah VoVuujitqgzfhZpprCfuxhw26-13-2314 00:15-0400Pulse (Heart Rate)92 /minMyah VoKmpkhgnsntjJwsmMjejro97-58-0347 00:15-0400Respiratory Rate20 /minMyah BellJqgtwlvaticSxxoAumhwg57-82-0150 23:32-0400BP Rsmiictli51 mm[Hg] Myah VoKynwmdisavtDkcbUopizw22-04-2752 23:32-0400BP Wunkhnwk801 mm[Hg]Myah VoKunqlzpfueoMmycSfbmvd52-35-3887 22:37-0400BMI (Body Mass Index)52.23 kg/m2 Myah VoJrychidmodlBlodUwwksu51-50-1835 22:37-0400Body Aujjrzqgfkc08.2 [degF] Myah VoTgvjvbssbroCbxsQnnpnz36-30-0644 22:37-0400Body .83 kgHighlands-Cashiers Hospitalvirgilio VoQrbcqqkejuuUuqsDigeqa10-69-8859 22:37-6395Pobgvd488.8 Kristin Valle AuysOthajs27-57-7646 10:19-0400BP Aqwqbbltw49 mm[Hg]Angelo CapellanOhioHealth [facility] 12-10-2018 10:19-0400BP Fxnopkpl178 mm[Hg]Angelo McleanXvpsoqqiajlTkbtOterwz18-35-2912 10:19-0400Pulse (Heart Rate)78 /minerika FeebjbndcwxLcbgImkftb10-56-9017 10:19-0400Pulse Tcukoypd84 %Angelo McleanBannerHealthComment on above:ra 12-10-2018 10:19-0400Respiratory Rate20 /minAleksandrerika Devulacedar city hospitallyIdioHealth 06-15-2018 11:07-0400BMI (Body Mass Index)54.39 kg/l3Hycffv AshleighKindred Hospital - San Francisco Bay AreaioZanesville [facility] 06-15-2018 11:07-0400Body Bftgurkntiu74.81 [degF][facility] 06-15-2018 11:Body achcka455.9 kgNortheast [facility] Center BraseltonJoboedzKppoJxvhfc77-53-3005 11:BP Udoprknsa47 mm[Hg][facility] BraseltonOgpnrgcPoclEjwrrm33-55-2995 11:BP Voyslfks965 mm[Hg][facility] BraseltonXjrrqahEegaPvumhu25-66-4791 11:3922Cautgs805.3 cm [facility] BraseltonZoarilsHlhvIxjtdy46-71-9853 11:0Pulse (Heart Rate)76 /minNortheast Georgia Medical Center BraseltonVayapuhVioqPxtaqy63-45-6234 11:Pulse Zaqfsidx97 %[facility] 06-15-2018 11:0Respiratory Rate16 /minNortheast [facility] Medical Center BraseltonEsutvmtZfjxLufolw47-73-9210 10:BMI (Body Mass Index)55.51 kg/n7TsarhtyCritical access hospitalKacaiiEcwjEiyjpz97-57-4772 10:0BP Bylahayuw92 mm[Hg]Critical access hospitalHnxmnkRxgeLeoqrn45-80-0600 10:BP Azxubzfa399 mm[Hg]Critical access hospitalAenbehJkwjFxtxwj80-34-7886 10:6988Tykcah864.3 cm Critical access hospitalTvrjaiMbhaAfnecx93-39-8737 10:Pulse (Heart Rate)74 /minCritical access hospitalCofsdzRjymZwhnau93-60-9617 10:2901Afmqub135.53 kgCritical access hospital 06-04-2018 09:0400BP Ueoiqwldj19 mm[Hg][facility] RexZdqskxdipygAvlsKxrike66-15-2677 09:0400BP Gwjwczur537 mm[Hg]Angelo ZwmycqgxogpTptvFnsfiq29-18-7462 09:0400 Vxkswk952.3 cmUNC Health RexPfoxcselhffFuanBphmhn61-28-3258 09:0400Pulse (Heart Rate) 75 /minUNC Health RexHagtdizcaikOckmLtkxln10-88-5430 09:110400Pulse Fxfimgjn73 %[facility] RexDmxmcvaesayRrdwAgmggf20-73-2617 09:110400Respiratory Rate12 /minUNC Health RexEsbcviyioejAuunBuiaxx91-38-0112 09:22-0500BMI (Body Mass Index)53 kg/u2ImtjtAngelo Mcleancedar city hospitallyIdioHealth Work Phone: 1(589) 270-346902-06-2018 09:22-0500BP Jsofcairh61 mm[Hg]Angelo Mcleancedar city hospitallyFloridaHealth Work Phone: 1(713) 350-478002-06-2018 09:22-0500BP Idspfgom436 mm[Hg]Angelo McleanBannerHealth Work Phone: 1(973) 127-220702-06-2018 09:22-4648Kplbkx206.3 cmAngelo Mcleancedar city hospitally [facility] Work Phone: 1(484) 166-739002-06-2018 09:22-0500Pulse (Heart Rate)75 /minAngelo Mcleancedar city hospitallyFloridaHealth Work Phone: 1(804) 883-779002-06-2018 09:22-0500Pulse Waeovpjk74 %Angelo McleanBannerHealth Work Phone: 1(840) 761-372402-06-2018 09:22-1398Zahvkc607.37 kgAngelo McleanUniversity Hospitals [facility] Work Phone: 1(145) 633-128010-02-2017 10:310BMI (Body Mass Index)51.6 kg/m2 Angelo McleanBannerHealth Work Phone: 1(915) 267-820210-02-2017 10:31-0400BP Nssdsjaku22 mm[Hg]Angelo McleanBannerHealth Work Phone: 1(540) 949-445310-02-2017 10:31-0400BP Nlgmzbav795 mm[Hg]Angelo McleanBannerHealth Work Phone: 1(598) 909-908510-02-2017 10:31-9863Rkysmj951.3 cmAngelo McleanUniversity Hospitals [facility] Work Phone: 1(653) 592-456610-02-2017 10:31-0400Pulse (Heart Rate)87 /minAngelo Capellanmobile infirmary medical centerlyFloridaHealth Work Phone: 1(702) 307-588510-02-2017 10:31-0400Pulse Ojbzudfp18 %Angelo CapellanOhioHealth [facility] Work Phone: 1(799) 543-701110-02-2017 10:Respiratory Rate16 /minAngelo CapellanOhioHealth Grant Medical Center Work Phone: 1(248) 988-732410-02-2017 10:6804Jghsko516.83 kgAngelo [facility] Work Phone: Encounters Encounter DateEncounter TypeCare ProviderFacilityStart: 01-03-2025 End: 70-65-6810eimjcxlfpuLnsplnzd Rohrbacher DISTRIBUTION ENGINEERING TECHNOLOGIST [facility] 01-[facility]2025 End: 84-85-9449Lnnpzie encounter procedureJazz Hyde DISTRIBUTION ENGINEERING TECHNOLOGIST [facility] Work Phone: Start: 80-22-0617Zwy-patient / Non-visitNicole [facility] Work Phone: Start: 12-02-2024 End: 74-39-4181fypbtwyikmDffqrkzy Rohrbacher DISTRIBUTION ENGINEERING TECHNOLOGIST Work Phone: [facility] Work Phone: Start: 12-02-2024 End: 52-15-9350Qjzunsl encounter procedureJazz Stollacher DISTRIBUTION ENGINEERING TECHNOLOGIST [facility] Work Phone: Start: 08-23-2024 End: 98-61-8554ntedxnokuoMernfqxt Aureliarbacher DISTRIBUTION ENGINEERING TECHNOLOGIST Work Phone: [facility] Work Phone: Start: 08-23-2024 End: 75-06-6058Lfcjrke encounter procedureEliceobhavesh Stollacher DISTRIBUTION ENGINEERING TECHNOLOGIST [facility] Work Phone: Start: 06-28-2024 End: 12-27-6828vwsqsdkqueJadllcfgfAshtabula County Medical Center Work Phone: Start: 06-28-2024 End: 59-84-6738Qkoimtj encounter procedureFirriverside [facility] Work Phone: Start: 04-28-2024 End: 55-80-2083pqkqwtyoinLcspsbka Rohrbacher DISTRIBUTION ENGINEERING TECHNOLOGIST Work Phone: [facility] Work Phone: Start: 04-28-2024 End: 46-25-5125Ahbadah encounter procedureJennifer Rohrbacher DISTRIBUTION ENGINEERING TECHNOLOGIST Work Phone: [facility] Work Phone: Start: 94-40-7993Rxcznae encounter procedureJennifer Rohrbacher DISTRIBUTION ENGINEERING TECHNOLOGIST Work Phone: [facility]24 Patient encounter statusJennifer Rohrbacher DISTRIBUTION ENGINEERING TECHNOLOGIST Work Phone: [facility]: 03-30-2024 End: 00-05-2327gmtydxipqnBxqncejo Rohrbacher DISTRIBUTION ENGINEERING TECHNOLOGIST Work Phone: [facility] Work Phone: Start: 03-30-2024 End: 14-11-2051Zzeubhq encounter procedureJennifer Rohrbacher DISTRIBUTION ENGINEERING TECHNOLOGIST Work Phone: [facility] Work Phone: Start: 02-10-2024 End: 43-93-8379ddsviiwmokGfcglvld RohrbacherFacility:[facility]: 02-10-2024 End: 71-81-0669Kdlpaztr ReferredJennifer Rohrbacher DISTRIBUTION ENGINEERING TECHNOLOGIST Work Phone: [facility] [place] Work Phone: Start: 02-10-2024 End: 71-93-9389Vwcujtc encounter procedureJennifer Rohrbacher DISTRIBUTION ENGINEERING TECHNOLOGIST Work Phone: [facility] Work Phone: Start: 12-26-2023 End: 30-02-5151uenqfljhcvPdqqujzyzTogus VA Medical Center Work Phone: Start: 12-26-2023 End: 04-12-0094Uptmpxx encounter procedureAtrium Health Physician GroupSelect [facility] Work Phone: Start: 11-25-2023 End: 71-45-5094qhhlvaucczXhvuvpdsdAshtabula County Medical Center Work Phone: Start: 11-25-2023 End: 19-75-8553Jxrvwih encounter procedureAtrium Health Physician [facility] Work Phone: Start: 08-18-2023 End: 54-23-9093xgvdopriojFzccnbfuoTogus VA Medical Center Work Phone: Start: 08-18-2023 End: 64-22-8764Fcgimwf encounter procedureAtrium Health Physician [facility] Work Phone: Start: 83-28-9709Ypgarmnaqhzng procedureLaxmi Perez LPNOhioHealth Pulmonary PhysiciansComment on above:Requesting Sleep StudyStart: 12-23-2022 End: 15-26-1578wnbamcskwgIoecqcr R RogersFacility:FTMCStart: 12-23-2022 End: 84-91-5859Kiujaip encounter Michael Morse III [facility] Start: 08-16-2022 End: 49-58-2821qxvehkrhmqZrzamzu J JordenFacility:FTMCStart: 08-16-2022 End: 10-67-7340Swrmstc encounter procedureFranchesca Don [facility] Start: 05-22-2022 End: 79-46-9347ialemwfwblXhfr C LinkFacility:FTMCStart: 05-22-2022 End: 25-97-0969Pehogoq encounter procedureAdam C Link [facility] Start: 05-06-2022 End: 06-38-1242iytzappziyGfon C LinkFacility:FTMCStart: 11-15-2021 End: 52-63-1684Oxm-admission assessmentBasem Candice Eid [facility] Start: 10-03-2021 End: 22-22-2194Qcbmecn encounter procedureBasem Candice Eid [facility] Start: 08-03-2021 End: 53-21-7979Ljkgctm encounter procedureBasem Candice Eid [facility] Start: 07-03-2021 End: 01-04-3802Zta-admission assessmentBasem Candice Eid [facility] Start: 41-75-1865EkudjjPcqttCorazon Rios MD Work Phone: IdSADAR 3DZanesville City Hospital Pulmonary PhysiciansComment on above: Chronic obstructive pulmonary disease with acute exacerbation (HCC)Start: 08-18-2020 End: 23-26-0117XtivxhWdtw Orozco [facility] Pulmonary PhysiciansComment on above:Chronic obstructive pulmonary disease with acute exacerbation (HCC) (Primary Dx)Start: 06-16-2020 End: 03-39-6227ekcpnukqyiLBCLTJuan Luis RIOSIdboston Health AmbulatoryStart: 06-16-2020 End: 22-98-8171Satw/qhp telephone evaluation 01-13 Octaviano Rios MD Work Phone: [facility] Pulmonary PhysiciansComment on above: Centrilobular emphysema (HCC) (Primary Dx); Obstructive sleep apnea; Tobacco abuse disorderStart: 97-29-2475qxyluzccssCZYZF SHARMAFacility:[facility] TEXAStart: 87-93-3638wxhuyvtgcgZKLVH Betito CAPELLANTriHealth [facility] Amb[facility] Start: 09-26-8742fgnnrfarzhHOHL SELFFacility:[facility] TEXAStart: 01-02-7962Julwhol encounter procedureSELF SELFFacility:[facility] TEXAStart: 05-10-2020 End: 50-51-3573Dzqype OnlyKathldiana Bailon Luana Work Phone: [facility] Start: 03-12-2020 End: 64-26-5583LjlkkgZsigsCorazon Rios Work Phone: [facility] Pulmonary PhysiciansStart: 02-16-2020 End: 43-78-6882fdakbucepbUGKELChildren's Hospital [facility] AmbulatoryStart: 90-01-0477kszhmzgexbPLCXT KMary Anne [facility] AmbulatoryStart: 12-28-2019 End: 55-08-9145Jbcdqqtfkcnqw procedureBeNationwide Children's Hospital Pulmonary Physicians Comment on above:nebulizerStart: 12-01-2019 End: 42-48-0582Bpjatovzvkotc procedureBebestUC Health Pulmonary PhysiciansComment on above:louisedorza deniedStart: 67-56-6931xymuinhptyFWDFI SHARMA [facility] AmbulatoryStart: 10-21-2019 End: 45-41-7578hagcmrctrjJGWCCChildren's Hospital [facility] AmbulatoryStart: 10-10-2019 End: 38-96-8460Uzifzvl encounter procedureTIMVIRGILIO Hogue [facility] CenterStart: 10-10-2019 End: 74-96-3417Motyywium department patient visitSUMIT [facility] CenterStart: 10-09-2019 End: 03-77-3344Krwgbvbov department patient visitMyah Valle Work Phone: [facility] Emergency DepartmentComment on above: COPD exacerbation (HCC) (Primary Dx); Chest pain, unspecified typeStart: 03-11-2019 End: 76-16-5500Hfvottzdoyqig procedureBeNationwide Children's Hospital Pulmonary Physicians Comment on above:bipap statusStart: 02-26-2019 End: 43-50-5784Eugexhzpakzvh procedureSjulisa SerranoAvita Health [facility] Pulmonary PhysiciansStart: 12-10-2018 End: 30-30-3435Dsemfbhzkkutp procedureKim RustAvita Health System [facility] Pulmonary Physicians Comment on above:titration study orderedStart: 12-10-2018 End: 69-84-5073Rhjplg outpatient visit 25 minutesAngelo Rios Work Phone: [facility] Pulmonary PhysiciansComment on above: Centrilobular emphysema (HCC) (Primary Dx); Obstructive sleep apnea; Cigarette SmokerStart: 07-03-2018 End: 92-61-6040Wzqniyzymnbse procedureMicemir TranKindred Hospital Lima Pulmonary PhysiciansComment on above:CPAP suppliesStart: 06-15-2018 End: 70-05-4369Ucawcsrkm department patient visitSUMIT [facility] Hospitaltart: 06-15-2018 End: 27-84-8289Sajidught department patient visitMeenal Zhu Yaneli Work Phone: [facility] Emergency Department Comment on above:Pain, dental (Primary Dx)Start: 06-15-2018 End: 23-04-5832Tztpoet encounter procedureSerenamarah Steward Work Phone: [facility] Heart & Vascular PhysiciansComment on above:ERRONEOUS ENCOUNTER--DISREGARD (Primary Dx)Start: 06-04-2018 End: 69-69-8642Tntkmy outpatient visit 25 minutesAngelo Rios Work Phone: [facility] Pulmonary PhysiciansComment on above: Centrilobular emphysema (HCC) (Primary Dx); Obstructive sleep apnea; Tobacco abuse disorderStart: 97-59-0579Qkjnyi/outpatient visit, est, level 4 Angelo Rios Work Phone: [facility] Pulmonary PhysiciansStart: 04-01-2017 End: 92-74-9169OfgegaixnwYhxam K. Devulapally Work Phone: [facility] Pulmonary LabStart: 11-25-2016 Office/outpatient visit, est, level 5Angelo Rios Work Phone: [facility] Pulmonary PhysiciansStart: 09-11-2016 [facility] Procedures DateProcedureProcedure DetailPerforming ClinicianStart: 87-16-5128Ktlzihf microbial cultureJennmelony Stollacher DISTRIBUTION ENGINEERING TECHNOLOGIST Work Phone: Start: 89-50-0733Vdzrclhxj microbial cultureJennifer Aureliarbacher DISTRIBUTION ENGINEERING TECHNOLOGIST Work Phone: Start: 02-33-2455Jkzw stain microscopyJebhavesh Mosesrbacher DISTRIBUTION ENGINEERING TECHNOLOGIST Work Phone: Start: 55-36-7697Madij of troponin quantitativeMyah To James Work Phone: [phone]: 91-07-4985ZAU COVID-19, MOLECULARMyah To James Work Phone: [phone]: 42-56-621637 lead ECGMyah Clementskpatrick Work Phone: [phone]: 92-93-8981Ncqvx of troponin quantitativeMyah Gutiérrezatrick Work Phone: [phone]: 72-06-0014Syylgrsjtr exam chest single view Myah To James Work Phone: [phone]: 76-95-4877Nwovz of urea nitrogen quantitative Myah Clementskpatrick Work Phone: [phone]: 09-04-8686Rsdsh count complete auto&auto difrntl wbcMyah Clementskpatrick Work Phone: [phone]: 29-88-6116Zbggpsrnfpbt [Mass/volume] in Urine by Test Sami RustStart: 90-90-7703Jnryqbplnk examination and evaluation Angelo Rios MD Work Phone: Start: 04-01-2017 End: 22-61-1371FQZGXFBG PFTAngelo Rios Work Phone: Plan of Treatment DateCare ActivityDetailAuthorStart: 89-03-6060Xzmejwunm vaccinationInfluenza Vaccine (Season Ended)[facility] 05-57-0760UVNUB-19 Vaccine ( season)COVID-19 Vaccine ( season)[facility]Start: 74-90-6565Nysgalgtt vaccinationSequential Influenza Vaccine (#1)[facility]Start: 82-75-3634Ygsxmhx DL <= 20 mg/L (U) [Mass/Vol]Urine MicroalbuminOhioHealthStart: 09-23-2020 Microalbumin measurement, urine, quantitativeUrine MicroalbuminOhioHealthStart: 27-77-9083Bqkoy screening for proteinUrine MicroalbuminOhioHealthStart: 09-18-2020 End: 86-57-1995Kkpqwzg encounter pmzjdylwt96/26/2021 Office Visit Pulmonology Al Solomon, DIRECTOR OF PARKS AND RECREATION [address] [place] [phone] [facility] Pulmonary PhysiciansStart: 64-84-2053Gxopiappfd A1c gbjyoljhzirC7RQtikQylptxObzou: 06-16-2020 End: 94-63-1342Gefwks Visit06/16/2020 Office Visit Pulmonology Angelo Rios MD [address] [place] [phone] [facility] Pulmonary PhysiciansStart: 31-97-6462MxH9m (Bld) [Mass fraction]O3POfvdCvadhhNprkc: 23-09-4173Kfegqvicwk A1c jwooolbybhiO5I [facility] HospitalStart: 02-16-2020 End: 69-16-9992Xveqenrposmx82/23/2020 Telemedicine Pulmonology Al Solomon, DIRECTOR OF PARKS AND RECREATION [address] [place] [address] [facility] Pulmonary PhysiciansStart: 39-24-3251Frqybfifm vaccination Sequential Influenza Vaccine (#1)[facility]HealthStart: 19-43-8075Wpsaqrfzm vaccination givenSequential Influenza Vaccine (#1)[facility]HealthStart: 10-21-2019 End: 71-54-5327Pcojmq Visit10/21/2019 Office Visit Pulmonology Al Solomon, [facility] [address] [place], [place] [phone] [facility] Pulmonary PhysiciansStart: 46-53-6187Auxziqwvhgwsdo of herpes zoster vaccineZoster Vaccines (1 of 2)[facility]HealthStart: 09-97-0473Mytwhteqy for malignant neoplasm of colonOhioHealthStart: 06-17-2019 End: 54-58-2385Bloynj Visit06/17/2019 Office Visit Pulmonology Angelo Rios MD [address] [place] [address] [phone] [facility] Pulmonary PhysiciansStart: 12-10-2018 End: 63-67-1398Acsygy Visit12/10/2018 Office Visit Pulmonology Angelo Rios MD [address] [place] [address] [phone] [facility] Pulmonary PhysiciansStart: 95-66-1026Tfeilxdyz vaccination givenOhioHealthStart: 84-13-0840Ktcddnei screeningDiabetic Eye Exam [facility]HealthStart: 11-00-0372Gtzlbvezkm examination and evaluationOphthalmology ExamOhioHealthStart: 06-30-2018 End: 88-53-9178Bafqjcqgq04/07/2019 Treatment Cardiac Rehabilitation Felisha Cisneros MD [address] [place] [address] [phone] [facility] Cardiac RehabStart: 06-15-2018 End: 26-57-1323Blklzf Visit06/15/2018 Office Visit Cardiology Franky Steward MD [address] [facility] [address] [place] [address] [phone] [facility] Heart & Vascular PhysiciansStart: 10-25-2017 Influenza vaccination givenSEQUENTIAL INFLUENZA VACCINE (#1)[facility]HealthStart: 57-29-3640Hfhgivozfs27/13/2018 Office Visit Pulmonology Angelo Rios MD [address] [place] [address] [phone] [facility] Pulmonary PhysiciansStart: 20-65-3886Azsvoqidub63/06/2018 Office Visit Pulmonology Angelo Rios MD [address] [place] [address] [phone] [facility] Pulmonary PhysiciansStart: 14-07-2552Vtjuqtcmj vaccinationSEQUENTIAL INFLUENZA VACCINE (#1)[facility] Work Phone: Start: 42-73-6656Kbz dose computed tomography of chest without contrastLow-dose CT Lung Cancer ScreenOhioHealthStart: 11-17-2014 Screening for malignant neoplasm of lungLow-dose CT Lung Cancer ScreenOhioHealth Start: 31-26-1365Hcwzfxvjj C antibody, confirmatory testHepatitis C Screening [facility]HealthStart: 79-78-2716Xbyspdoju C screeningHepatitis C ScreeningOhioHealth Start: 20-84-6948PKJMJ-19 Vaccine (1 of 2)COVID-19 Vaccine (1 of 2)[facility] Start: 02-70-7953ABU screeningHIV ScreeningOhioHealthStart: 74-03-0825Boqzaqztzj depression screening assessmentDepression Screening (PHQ9)[facility]HealthStart: 78-79-7865Odliabctue screening using PHQ-9 (Patient Health Questionnaire 9) scoreOhioHealthStart: 22-51-7704Ygrcywby foot examinationOhioHealthStart: 31-56-0204Sibziuexugfc measurement, urine, quantitativeUrine Microalbumin [facility]HealthStart: 06-40-0267Jnuxouobep examination and evaluationOphthalmology ExamOhioHealthStart: 75-70-5642Dbtizvohlfdl Vaccine: Ped or At-Risk (1 of 2 - PCV)Pneumococcal Vaccine: Ped or At-Risk (1 of 2 - PCV)[facility]HealthStart: 24-12-0656Dxysplwrtlke Vaccine: Ped or At-Risk (1 of 2 - PPSV23)Pneumococcal Vaccine: Ped or At-Risk (1 of 2 - PPSV23)[place]HealthStart: 01-87-6766Avfwttz and physical examination, annual for health maintenanceCarilion New [facility] VisitOhioHealth Start: 54-18-0862Nezfkvgc specific antigen measurementPSA LevelOhioHealthStart: 40-56-2171Xgozpxvif for malignant neoplasm of colonOhioHealthStart: 1970 Tetanus vaccinationOhioHealth End: 09-85-2314Xiborhkx PFTComplete PFT Routine Centrilobular emphysema (HCC) 1 Occurrences starting 11/25/2016 until 11/25/2017[facility] Work Phone: comprehensive metabolic 2000 panel - Serum or Plasma [facility] HospitalPatient EducationLow back pain in adults [facility] Work Phone: xr Chest 1 ViewXR Chest 1 View Imaging KEITH 10/09/2019 11:00 PM EDT[facility] Immunizations Immunization DateImmunizationNotesCare SaunmzleRxczsvyk03-87-0688xklzscczg virus vaccine, unspecified formulationLaxmi Perez NOOhioHealth [facility] Payers DatePayer CategoryPayerPolicy [id number]-[id number] 2019MedicaidMEDICAID MEDICAID [place] [id number] 2018-Present [phone] [address] [place] [address] [id number] 2019MedicareMEDICARE MEDICARE PART A & B xxxxxxxxxxx 2018-Present [place] [id number] [id number] [id number] 2019 MedicareMEDICARE MEDICARE PART A & B [id number] 2018-Present [phone] [facility] [id number] PART A CLAIMS [address] [address] [place] [address] [id number] [id number] [id number] 2014Medicaidxxxxxxxxxxxx [id number] 2.16.840.1.121157.3.57[id number] 2.16.840.1.114540.3.57[id number] 2.16.840.1.799396.3.57[id number] 2.16.840.1.581423.3.57[id number] 2.16.840.1.520975.3.57[id number] 2.16.840.1.134556.3.57[id number] 2.16.840.1.089897.3.57[id number] 2.16.840.1.122237.3.57[id number] 2.16.840.1.359476.3.57[id number] 2.16.840.1.677323.3.57[id number] 2..840.1.950047.3.57[id number] 2.16.840.1.301920.3.57[id number] 2.0.1.427971.3.57[id number] 2.840.1.932406.3.57[id number] 2.0.1.28[id number] 2.0.1.776268.3.579.2.531 Social History DateTypeDetailFacilityStart: 11-25-2016 End: 12-19-0328Ljwpksn smoking status NHISCurrent every day smokerOhioHealth Start: 21-26-2456Ltd Assigned At BirthNot on fileIdioZanesville City Hospital Work Phone: Start: 06-15-2018 End: 89-50-6852Eiyxttgbcd smoked current (pack per day) - ReportedOhioHealth Start: 12-10-2018 End: 03-25-1074Qdvnpah intakeCurrent non-drinker of alcohol (finding)[facility] Start: 10-10-2019 End: 89-95-4556Qufpyin use and exposureNever usedOhioHealthExposure to SARS-CoV-2 (event)YesOhioHealthExposure to SARS-CoV-2 (event)Unable to assess [facility] HospitalStart: 45-06-3017Gfp Assigned At BirthMemorial Hospitaltart: 55-95-4492Zojyimv smoking statusHeavy tobacco smoker (finding) [facility] HospitalTobacco smoking statusNeverC[facility] Clinic South Pointe HospitalHistory of tobacco useCigarette SmokerOhioHealthStart: 05-08-5764Vglymp identityIdentifies as male gender (finding)OhioHealthStart: 12-22-4141Nzslct orientationHeterosexual (finding)OhioHealthStart: 08-18-2023 End: 51-34-7889Geuwwcn smoking status NHISSmoker (finding)[facility]art: 25-69-6650Oio [facility] At [facility]tart: 03-30-2024 End: 37-89-0570GrtSfhf (finding)[facility] Medical Equipment Procedure CodeEquipment CodeEquipment Original TextEquipment IdentifierDatesUSE 1 NEEDLE ONCE [id number]: 59-89-5050jfiqv as directed .[id number]: 45-66-4498Izwcu Sugar Diagnostic (Accutrend Glucose Test Strips) stripStart: 65-27-1385Zlognjv (Accu-Chek Softclix Lancets) miscStart: 02-23-6165Rju Needle, Diabetic (Sure-Fine Pen [place]) 31 gauge x 5/16 needleStart: 29-04-7926Lcien Sugar Diagnostic (Accutrend Glucose Test Strips) stripStart: 02-11-2024 End: 96-67-7756Ooubotv (Accu-Chek Softclix Lancets) miscStart: 02-12-2024 End: 21-71-5039Rfdkgum (Accu-Chek Softclix Lancets) miscStart: 02-13-2024 End: 59-43-3821Rhkjm Sugar Diagnostic (Accutrend Glucose Test Strips) strip Start: 49-60-3579Iqgrzsi (Accu-Chek Softclix Lancets) miscStart: 11-21-8925Duh Needle, Diabetic (Sure-Fine Pen [place]) 31 gauge x 5/16 needleStart: 09-09-0957Dsxvu Sugar Diagnostic (Accutrend Glucose Test Strips) stripStart: 02-11-2024 End: 74-16-6296Rfahpjy (Accu-Chek Softclix Lancets) miscStart: 02-12-2024 End: 51-25-2844Fcnaibb (Accu-Chek Softclix Lancets) miscStart: 02-13-2024 End: 08-89-3399Ldusb Sugar Diagnostic (Accutrend Glucose Test Strips) strip Start: 88-83-5309Gpddbmd (Accu-Chek Softclix Lancets) miscStart: 25-52-8821Umo Needle, Diabetic (Sure-Fine Pen [place]) 31 gauge x 5/16 needleStart: 68-17-9343Nxhwn Sugar Diagnostic (Accutrend Glucose Test Strips) stripStart: 02-11-2024 End: 33-55-1888Fpvqcxg (Accu-Chek Softclix Lancets) miscStart: 02-12-2024 End: 31-84-8592Otubnfn (Accu-Chek Softclix Lancets) miscStart: 02-13-2024 End: 05-27-5390Dyrwm Sugar Diagnostic (Accutrend Glucose Test Strips) strip Start: 65-06-4669Gmznllt (Accu-Chek Softclix Lancets) miscStart: 33-03-1487Umu Needle, Diabetic (Sure-Fine Pen [place]) 31 gauge x 5/16 needleStart: 17-35-7599Obszx Sugar Diagnostic (Accutrend Glucose Test Strips) stripStart: 02-11-2024 End: 17-64-0916Gtujbff (Accu-Chek Softclix Lancets) miscStart: 02-12-2024 End: 93-57-7929Jiegnsz (Accu-Chek Softclix Lancets) miscStart: 02-13-2024 End: 82-36-6407Lbrch Sugar Diagnostic (Accutrend Glucose Test Strips) strip Start: 25-84-1506Tddfaid (Accu-Chek Softclix Lancets) miscStart: 23-08-1561Hhb Needle, Diabetic (Sure-Fine Pen [place]) 31 gauge x 5/16 needleStart: 75-33-4923Nprug Sugar Diagnostic (Accutrend Glucose Test Strips) stripStart: 02-11-2024 End: 64-92-5518Vkldyjr (Accu-Chek Softclix Lancets) miscStart: 02-12-2024 End: 02-11-4294Zeyuxoe (Accu-Chek Softclix Lancets) miscStart: 02-13-2024 End: 49-66-9645Kuhrz Sugar Diagnostic (Accutrend Glucose Test Strips) strip Start: 57-95-1691Uvqrvbf (Accu-Chek Softclix Lancets) miscStart: 72-69-3479Ckr Needle, Diabetic (Sure-Fine Pen [place]) 31 gauge x 5/16 needleStart: 15-37-8869Uskpm Sugar Diagnostic (Accutrend Glucose Test Strips) stripStart: 02-11-2024 End: 22-68-1667Ivpwrmw (Accu-Chek Softclix Lancets) miscStart: 02-12-2024 End: 07-26-3945Sasahir (Accu-Chek Softclix Lancets) miscStart: 02-13-2024 End: 03-30-2024 Clinical Notes 12-01-2019 to 12-02-2024 Note Date & AgtzCtqvDppdptyy76-33-0034 Evaluation note* Diagnosis Onset Date Resolution Status Admit Date Allergic rhinitis acuteOctober 2024 8:51amChronic obstructive pulmonary disease (COPD)acute December 02, 2024 8:51amCurrent smokeracuteOctober 2024 8:51amGERD (gastroesophageal reflux disease)acuteOct2024 8:51amHyperlipemiaacute December 02, 2024 8:51amHypertensionacuteOctober 2024 8:51amSleep apnea acuteOct2024 8:51amType 2 diabetes mellitusacuteOctober 2024 8:51amChronic obstructive pulmonary disease (COPD)acuteNov2024 8:21am [facility] Work Phone: 1(721) 458-166905-05-2025 Evaluation note* Diagnosis Onset Date Resolution Status Admit Date Chronic obstructive pulmonary disease (C OPD) acuteMa2024 8:23amCurrent smokeracuteMa2024 8:23amFoot ulcer due to secondary DMacuteMay 2024 8:23amHyperlipemiaacuteMay 2024 8:23am HypertensionacuteMay 2024 8:23amScreening for prostate canceracuteMay 2024 8:23amSleep apneaacuteMay 2024 8:23amType 2 diabetes mellitusacuteMay 2024 8:23amVenous insufficiencyacuteMay 2024 8:23amChronic obstructive pulmonary disease (COPD)acuteJune 2024 3:21pmLeft leg cellulitisacuteJune 2024 3:21pmVenous insufficiency (chronic) (peripheral)acuteJun2024 3:21pmWound of left lower extremityacuteJune 2024 3:21pm [facility] Work Phone: 1(413) 456-529002-04-2025 Evaluation note* Diagnosis Onset Date Resolution Status Admit Date Chronic obstructive pulmonary disease (C OPD) acuteFebruary 2024 8:19amCurrent smokeracuteFebruary 2024 8:19am HyperlipemiaacuteFebruary 2024 8:19amHypertensionacuteFebruary 2024 8:19amMedicare annual wellness visit, subsequentacuteFebruary 2024 8:19am Screening for colon canceracuteFebruary 2024 8:19amScreening for prostate canceracuteFebruary 2024 8:19amSleep apneaacuteFebruary 2024 8:19am Type 2 diabetes mellitusacuteFebruary 2024 8:19amVenous insufficiencyacute March 30, 2024 8:19amDental abscessacuteMarch 2024 1:03pmChronic obstructive pulmonary disease (COPD)acuteMay 2024 8:23amCurrent smokeracute June 28, 2024 8:23amHyperlipemiaacuteMay 2024 8:23amHypertensionacuteMay 2024 8:23amScreening for prostate canceracuteMay 2024 8:23amSleep apneaacuteMay 2024 8:23amType 2 diabetes mellitusacuteMay 2024 8:23am Venous insufficiencyacuteMay 2024 8:23am [facility] Work Phone: 1(876) 427-109412-17-2024 Evaluation note* Diagnosis Onset Date Resolution Status Admit Date Cellulitis of lower extremity acuteDecember 2023 10:46amLower back painacuteDecember 2023 10:46am Muscle spasmacuteDecember 2023 10:46amType 2 diabetes mellitusacute February 10, 2024 10:46amWound of right lower extremityacuteDecember 2023 10:46amChronic obstructive pulmonary disease (COPD)acuteFebruary 2024 8:19amCurrent smokeracuteFebruary 2024 8:19amHyperlipemiaacuteFebruary 2024 8:19amHypertensionacuteFebruary 2024 8:19amScreening for prostate canceracuteFebruary 2024 8:19amSleep apneaacuteFebruary 2024 8:19am Type 2 diabetes mellitusacuteFebruary 2024 8:19amVenous insufficiencyacute March 30, 2024 8:19amVenous insufficiency (chronic) (peripheral)acute March 30, 2024 8:19am [facility] Work Phone: 1(884) 732-622712-17-2024 Evaluation note* Diagnosis Onset Date Resolution Status Admit Date Cellulitis of lower extremity acuteDecember 2023 10:46amLower back painacuteDecember 2023 10:46am Muscle spasmacuteDecember 2023 10:46amType 2 diabetes mellitusacute February 10, 2024 10:46amWound of right lower extremityacuteDecember 2023 10:46amChronic obstructive pulmonary disease (COPD)acuteFebruary 2024 8:19amCurrent smokeracuteFebruary 2024 8:19amHyperlipemiaacuteFebruary 2024 8:19amHypertensionacuteFebruary 2024 8:19amMedicare annual wellness visit, subsequentacuteFebruary 2024 8:19amScreening for colon canceracute March 30, 2024 8:19amScreening for prostate canceracuteFebruary 2024 8:19amSleep apneaacuteFebruary 2024 8:19amType 2 diabetes mellitusacute March 30, 2024 8:19amVenous insufficiencyacuteFebruary 2024 8:19am Dental abscessacuteMar 2024 1:03pm [facility] Work Phone: 1(259) 963-231906-06-2024 History of Present illness Narrative* Laxmi Perez LPN - 07/31/2023 9:06 AM EDT Authorization for IAN fax rec'v from [facility] requesting a copy of sleep study resultwith patient signature. SS result faxed at [phone]. documented in this [id number] Hospital Discharge instructions Follow Up Care 07/27/2021 11:50:22 With:Ragini SALINAS, Hansa Harvey, PUL, SHAJI Address: [address] [place] [address] Pulmonary Clinic (Heart & Vascular) [place] [id number]- When: Unknown Comments:after his testing is completed [facility]06-25-2021 Miscellaneous Notes* Telephone Encounter - Marianela [...] LPN - 08/18/2020 11:04 AM EDT Let VMM for patient to return call regarding fax received from [facility] for a refill on his Prednisone taper. documented in this [id number] History of Present illness Narrative* Angelo Rios MD - 06/16/2020 10:12 AM EDT Telephone Visit Via Phone Call Patient ID: Ector Rutledge is a 49 y.o. male on the phone for COPD Patient phone : [phone] This visit has been fully reviewed with [...] and has residual AHI of 1.2. His [place] Sleepiness Scale is 6/24 and overall he [...] He uses a full-face mask for interface. [place] Sleepiness Scale is 9/24. He continues to [...] normal EF This note was dictated using MomentFeed/ Dictation Software and may contain errors that were not corrected during editing. Provider [facility] [address] [facility] [address] Patient location: [address] [place] [address] I have spent 11-20 minutes with the [...] Sincerely, Angelo Rios MD documented in this [id number] History of Present illness Narrative* Kim Rust LPN - 12/01/2019 1:21 PM EDT Insurance denied the tudorza until patient tries atrovent. Informed patient Dr. Rios placed an order for the atrovent today. Asked patient to try it and let us know how it is working for him. He verbalizes understanding documented in this encounterOhioZanesville City HospitalEvaluation + Plan note Future Appointments Appointment Date:08/03/2021 10:15:00 AM Scheduled Provider:Hansa Eid MD Location:FT.Pulmonary Clinic Appointment Type:Pulmonary New Patient (FT) [facility] note Future Appointments Appointment Date:08/20/2021 07:30:00 AM Scheduled Provider: Location:.CARDIO Appointment Type:PUL Pulmonary Function Test (FT) Appointment Date:08/20/2021 08:30:00 AM Scheduled Provider: Location:.CARDIO Appointment Type:PUL Six Minute Walk Test (FT) [facility] note* Diagnosis Centrilobular emphysema (HCC)- Primary Obstructive sleep apnea Obstructive sleep apnea (adult) (pediatric) Tobacco abuse disorder documented in this encounter [facility] Diagnosis Chronic obstructive pulmonary disease with acute exacerbation (HCC)- Primary documented in this encounter [facility]* Diagnosis Chronic obstructive pulmonary disease with acute exacerbation (HCC) documented in this encounter [facility]* Diagnosis Onset Date Resolution Status Chronic obstructive pulmonary disease (C OPD) acuteCurrent smokeracuteHyperlipemiaacuteType 2 diabetes mellitusacute [facility] Work Phone: Evaluation noteNo assessment information available [facility] Work Phone: Evaluation note* Diagnosis Onset Date Resolution Status Chronic obstructive pulmonary disease (C OPD) acuteCOPD exacerbationacuteCurrent smokeracuteHypertensionacuteType 2 diabetes mellitusacute [facility] Work Phone: Hospital course Narrative No data available for this section [facility] Discharge instructions No data available for this section [facility] instructionsAmbulatory Orders* Disability Placard Time Frame: 01/03/25, Location: Determined By Patient [facility] Work Phone: Progress note No data available for this section [facility] HospitalReason for referral (narrative)No reason for referral information availableClermont County Hospital Work Phone: Assessments DiagnosisCentrilobular emphysema (HCC) - PrimaryObstructive sleep apnea Obstructive sleep apnea (adult) (pediatric) Tobacco abuse disorderBilateral edema of lower extremityDiagnosisCentrilobular emphysema (HCC)DiagnosisCentrilobular emphysema (HCC) - PrimaryObstructive sleep apnea Obstructive sleep apnea (adult) (pediatric) [...] Not Specified Malignant neoplasm Unknown Advance Directives TypeDate RecordedPatient RepresentativeExplanationAdvance Directives and Living Will06/15/2018 11:51 AMAdvance Directives and Living Will06/15/2018 8:23 AMType Date RecordedPatient RepresentativeExplanationAdvance Directives and Living Will 06/15/2018 11:51 AMAdvance Directives and Living Will10/10/2019 4:01 AMCode Status Date ActivatedDate InactivatedCommentsFull Code10/10/2019 4:19 AMCode StatusDate ActivatedDate InactivatedCommentsFull Code10/10/2019 4:19 AM10/10/2019 4:28 PMType Date RecordedPatient RepresentativeExplanationAdvance Directives and Living Will 10/10/2019 4:01 AMAdvance Directives and Living Will06/15/2018 11:51 AMDate ActivatedDate InactivatedComments10/10/2019 4:19 AM10/10/2019 4:28 PM Advance Directive Response Recorded Date/ [...] PM EDT CPAP supply order faxed to [facility], per patient request. F: [phone] Confirmation received. documented in this encounter* Angelo [...] He uses a full-face mask for interface. [place] Sleepiness Scale is 9/24. He continues to [...] normal EF This note was dictated using MomentFeed/ NewHoundation Software and may contain errors that were not corrected during editing. documented in this encounter* Kim Rust LPN - 12/10/2018 1:57 PM EDT Order faxed to [employer] for titration study documented in this encounter* Kim Rust LPN - 03/11/2019 8:39 AM EST Received fax from Roger from [facility] that he spoke with patient on [...] and uses a full-face mask for interface. [place] Sleepiness Scale is 8/24. He continues to [...] history of COPD (chronic obstructive pulmonary disease) ([facility]), Diabetes mellitus ([facility]), GERD (gastroesophageal reflux disease), and Hyperlipidemia. [...] normal EF This note was dictated using MomentFeed/ Dictation Software and may contain errors that were not corrected during editing. in this encounter* Kim Rust LPN - 12/28/2019 9:49 AM EST Patient left a vm that he dropped his nebulizer machine and it broke and he would like a rx for a new one. [facility] I [facility] Sheila at [facility] and she will call patient. She states she can exchange it. documented in this encounter Discharge Instructions * Attachments The following attachments cannot be sent through Care Everywhere. * Chest Pain (Nauruan) * Chronic Health Conditions: Conserving Energy (Nauruan) * COPD: Asthma (Nauruan) documented in this encounter* Instructions* Debbie Erwin MD - 06/15/2018 Dental Clinics We recommend that you follow-up with the dentist as soon as possible (KEITH). If you do not have one, here are some options: [facility] [phone] [facility] [phone] [address] [facility] (Dental Clinic) [phone] [address] [facility] [address] By appointment only. $40 standard fee - adjustable per household income [facility] [phone] [facility] [phone] [facility] [phone] [address] [place], [place] [address] [facility] [phone] [address] ALL Insurances [facility] [phone] [address] [place] [address] [facility] [phone] [address] [place] [address] [facility] [employer] [facility] [phone] [place] [address] [facility] Family Practice [phone] [facility] [phone] [facility] Will take walk-in patients during certain hours of the day. [phone] [facility] Will take walk-in patients during certain hours of the day. * Attachments The following attachments cannot be sent through Care Everywhere. * Periodontal Conditions (Nauruan) * Smoking Cessation: Health Benefits: General Info (Nauruan) documented in this encounter Reason for Referral StatusReasonSpecialtyDiagnoses / ProceduresReferred By ContactReferred To ContactClosed Angelo Rios MD [address] [place] [address] Chief Complaint and Reason for Visit Chief Complaint Establish Reason for Visit Chronic obstructive pulmonary disease (COPD) Current smoker Hyperlipemia Type 2 diabetes mellitus Chief Complaint go over medications Chief Complaint go over medications Rt foot painReason for VisitChronic obstructive pulmonary disease (COPD) COPD exacerbation Current [...] Shaky, Dizzy December 02, 2024 8: 51am Chief Complaint Admit Date Shaky, Dizzy December [...] disease ([facility]) January 03, 2025 8:21am Additional Source Comments (unrecognized sect ion and content) No Status Records FoundNo Status Records FoundNo Status Records FoundNo Status Records FoundNo Status Records FoundNo Status Records FoundNo Status Records FoundNo Status Records Found INFORMATION SOURCE (unrecogn ized section and content) DATE CREATED AUTHOR 08/20/2017 [facility] DATE CREATED AUTHOR AUTHOR'S ORGANIZ ATION 06/15/2018 [facility] DATE CREATED AUTHOR AUTHOR'S ORGANIZ ATION 10/21/2019 [facility] DATE CREATED AUTHOR AUTHOR'S ORGANIZ ATION 05/19/2020 [facility] DATE CREATED AUTHOR AUTHOR'S ORGANIZ ATION 06/18/2020 [facility] DATE CREATED AUTHOR AUTHOR'S ORGANIZ ATION 04/13/2021 [facility] DATE CREATED AUTHOR AUTHOR'S ORGANIZ ATION 03/30/2023 [facility] DATE CREATED AUTHOR AUTHOR'S ORGANIZ ATION 02/17/2024 [facility] Reason for Visit (unrecogniz ed section and content) ReasonCommentsFollow-upErrorReasonCommentsCPAP suppliesReasonCommentsFollow-up COPDSleep Apneaneeds new cpap machine has new insurance to medicare was told he needs new sleep study to get machineReasonCommentstitration study orderedReason Commentsbipap statusReasonCommentsChest PainCOPDReasonCommentsDental PainReason CommentsMedication RefillReasonCommentsFollow-upCOPDSleep Apneauses bipap have dataReasonOnset XekxAsbefbwppluhyrewi19/03/2020ReasonCommentsFollow-up copd/emphysemaReasonOnset DateCommentsMedication [id number] DateCommentstudorza niakbk4912/01/2019ReasonOnset DateCommentsRequesting Sleep Study07/31/2023 Kayla Mcarthur RN - 10/10/2019 3:32 AM EDT ED Notes (unrecognized secti on and content) Pt sent to [facility], room 641 B with all their [...] not tamper with IV. Pt verbalized understanding. * Kayla Mcarthur RN - 10/10/2019 3:31 AM EDT Pt did not ambulate d/t O2 sats being 90-93% on RA. Pt was placed on 2 L NC. Pt sats improved to 96%. Pt std he was starting to feel better but did not feel he was able to ambulate d/t fatigue and SOB. * Viviana Padilla - 10/09/2019 11:47 PM EDT Registration completed outside patient's door Registrar and patient wearing PPE during registration * Myah Valle MD - 10/09/2019 11:33 PM EDT PCP: Bernadine Verma MD Chief Complaint Patient [...] to this ED he was not given anymedications, aspirin IV treatments or other in route. [...] him to feel more short of breath andmore congested today, chest x-ray, lab work possible repeat and depending on findings possible transfer to [place] later. At first he does not wish [...] file Gets together: Not on file Attends jehovah's witness service: Not on file Active member of club or organization: Not on file Attends meetings of clubs or organizations: Not on file Relationship status: Not on file Other Topics Concern Not on file Social History Narrative Not on file Social history reviewed. Allergies: No Known Allergies Medications: Ector Rutledge Home Medication Instructions Prior to Surgery [id number] Printed on:10/10/19 8608 Medication Information Take last dose on Take [...] Ht 5' 10 Wt (!) 167.8 kg (370lb) SpO2 97% BMI 53.09 kg/m Physical Exam [...] left-middle field reveals wheezing. Examination of the right-lower field reveals wheezing. Examination of the left-lower [...] speaking with him to clarify that she appearsthat are likely causing the cough more as [...] placement, I felt he was appropriate for [place].Speaking to transfer center they attempted to get him to [place] short stay unit. Speak with the provider at the short stay we both do not feel he is appropriate for there. Therefore he was thenaccepted back to [place] for proper placement, safe observation admission and [...] may show erroneous pO2, pCO2 and related calculationsdue to aerobic handling. If the most accurate [...] View Preliminary Result No acute cardiopulmonary disease. [employer] Workstation ID: [id number] MEDICATIONS ORDERED/GIVEN (if any, during ED visit): Medications ipratropium-albuteroL (DUO-NEB) 0.5-2.5 mg/3 ml nebulizer solution 3 mL (3 mL Inhalation Given 10/09/19 6993) sodium chloride (PF) (NS) flush 5 mL (has no administration in time range) And sodium chloride 0.9% (NS) (has no administration in time range) methylPREDNISolone sod suc(PF) (SOLU-medrol) Injection 125 mg (125 mg Intravenous Given 10/09/192258) aspirin chewable tablet 324 mg (324 mg Oral Given 10/09/192258) The unit secretary of Health and Human Services and Chris Street, governor of the [facility], have declared a state of public [...] Start: 10/10/19. Myah Valle MD 10/10/19 0322 * Kayla Mcarthur RN - 10/09/2019 10:32 PM EDT Per EMS, pt has hx of COPD. Pt has been havng chest tightness and pain since 1999. Pt reported painand tightness has worsened since then. Pt reported [...] earlier in the day. documented in this encounter* Debbie Erwin MD - 06/15/2018 12:15 PM EDT [facility] ED Attending Note: NAME: Ector Rutledge 47 y.o. CSN: [id number] PCP: Bernadine Verma MD History: Chief Complaint: [...] side. He had an appointment with his arts and sciences dean who sent him down here for fur ther evaluation. PMHx: Past Medical History: Diagnosis Date [...] solution Take 2.5 mg by nebulization every 6(six) hours as needed for wheezing. albuterol 90 [...] mg total) by mouth nightly . 30 [id number] omeprazole (PRILOSEC) 40 MG capsule Take 40 [...] suspicion for deep space neck infection, RPA, [employer], epiglottitis, Jason's angina based on today's evaluation. [...] home MD Debbie Perez MD 06/15/18 1254 * Alicia Bruno RN - 06/15/2018 11:07 AM EDT Patient reports tooth pain that started on [...] LAFB QRS axis: left T Inversion: aVL TN Interval: 168 QRS Interval: 88 QT Interval: 433 Clinical impression: non-specific ECG documented in this encounter Care Teams (unrecognized sec tion and content) Team MemberRelationshipSpecialtyStart DateEnd Date Bernadine Verma MD [address] [place] [address] PCP - GeneralInternal Medicine06/17/14 Al Solomon DIRECTOR OF [employer]ATION [address] [place] [address] Nurse PractitionerPulmonology10/21/19Team MemberRelationshipSpecialtyStart Date End Date Bernadine Verma MD PCP - GeneralInternal Medicine06/17/14 Al Solomon DIRECTOR [employer] [address] [place] [address] Nurse PractitionerPulmonology10/21/19 Team Status: Active Member Role Status Dates Kiki Childress DO Primary Care Provider Active Team Status: Inactive Member Role Status Dates Kiki Childress DO Primary Care Provider Active Start: August 18, 2023 End: August 18, 2023Jazz Hyde APRN HEALTH CARE TECHNICIAN-CAttending ProviderActive Start: August 18, 2023 End: August 18, 2023 Team Status: Inactive Member Role Status Dates Kiki Childress DO Primary Care Provider Active Start: November 25, 2023 End: November 25, 2023Jazz Hyde APRN HEALTH CARE TECHNICIAN-CAttending ProviderActive Start: November 25, 2023 End: November 25, 2023 Team Status: Inactive Member Role Status Dates Kiki Childress DO Primary Care Provider Active Start: December 26, 2023 End: December 26, 2023Jazz Hyde APRN HEALTH CARE TECHNICIAN-CAttending ProviderActive Start: December 26, 2023 End: December 26, 2023 Team Status: Active Member Role Status Dates Jazz Hyde APRN HEALTH CARE TECHNICIAN-C Primary Care Provider Active Team Status: Inactive Member Role Status Dates Jazz Hyde APRN HEALTH CARE TECHNICIAN-C Primary Care Provider, Attending Provider Active Start: February 10, 2024 End: February 10, 2024 Team Status: Inactive Member Role Status Dates Jazz Hyde APRN HEALTH CARE TECHNICIAN-C Attending Provider Act prashant Start: February 10, 2024 End: February 10, 2024 Team Status: Inactive Member Role Status Dates Jazz Hyde APRN HEALTH CARE TECHNICIAN-C Primary Care Provider, Attending Provider Active Start: March 30, 2024 End: March 30, 2024 Team Status: Inactive Member Role Status Dates Jazz Hyde APRN HEALTH CARE TECHNICIAN-C Primary Care Provider, Attending Provider Active Start: April 28, 2024 End: April 28, 2024 Team Status: Inactive Member Role Status Dates Jazz Hyde APRN HEALTH CARE TECHNICIAN-C Primary Care Provider, Attending Provider Active Start: June 28, 2024 End: June 28, 2024 Team Status: Inactive Member Role Status Dates Jazz Hyde APRN HEALTH CARE TECHNICIAN-C Primary Care Provider Active Start: June 28, 2024 End: June 28, 2024Jazz Hyde DISTRIBUTION ENGINEERING TECHNOLOGIST HEALTH CARE TECHNICIAN-CAttending ProviderActiveStart: June 28, 2024 End: June 28, 2024 Team Status: Inactive Member Role Status Dates Jazz Hyde APRN HEALTH CARE TECHNICIAN-C Primary Care Provider Active Start: August 23, 2024 End: August 23, 2024Jazz Hyde DISTRIBUTION ENGINEERING TECHNOLOGIST HEALTH CARE TECHNICIAN-CAttending ProviderActive Start: August 23, 2024 End: August 23, 2024 Team Status: Inactive Member Role Status Dates Jazz Hyde DISTRIBUTION ENGINEERING TECHNOLOGIST HEALTH CARE TECHNICIAN-C Primary Care Provider Active Start: December 02, 2024 End: December 02, 2024Jazz Hyde DISTRIBUTION ENGINEERING TECHNOLOGIST HEALTH CARE TECHNICIAN-CAttending ProviderActive Start: December 02, 2024 End: December 02, 2024 Team Status: Active Member Role/Relationship Status Dates Jazz Hyde APRN HEALTH CARE TECHNICIAN-C Primary Care Provider Active Team Status: Inactive Member Role/Relationship Status Dates Jazz Hyde APRN HEALTH CARE TECHNICIAN-C Primary Care Provider Active Start: December 02, 2024 End: December 02, 2024Jazz Hyde APRN HEALTH CARE TECHNICIAN-CAttending ProviderActive Start: December 02, 2024 End: December 02, 2024 Team Status: Active Member Role/Relationship Status Dates Jazz Hyde APRN HEALTH CARE TECHNICIAN-C Primary Care Provider Active Start: November Nani Matos ProviderActiveStart: December 06, 2024 Team Status: Inactive Member Role/Relationship Status Dates Jazz Hyde APRN HEALTH CARE TECHNICIAN-C Primary Care Provider Active Start: January 032024 End: January 03, 2025Jazz Hyde APRN HEALTH CARE TECHNICIAN-CAttending ProviderActive Start: January 03, 2025 End: January 03, 2025 Goals (unrecognized section and content) Goals may [...] BE BASED ON THE PRIMARY CLINICAL RECORDS. [employer] provides no warranty or guarantee of the accuracy or completeness of information in this document.
[2025-01-05 11:02] LABS: Hematocrit 50.2 % (42.0-54.0); Hemoglobin 16.8 g/dL (14.0-18.0); Immature Granulocytes Abs Auto 0.11 10^3/uL (0.00-0.03); Immature Granulocytes Pct Auto 0.7 % (0.0-0.5); Lymphocytes Absolute Auto 2.6 10^3/uL (1.2-3.8); Mean Corpuscular HGB Conc 33.5 g/dL (29.9-35.2); Mean Corpuscular Hemoglobin 27.6 pg (25.9-34.0); Mean Corpuscular Volume 82.6 fL (80.0-94.0); Platelet Count 208 10^3/uL (150-450); Red Blood Count 6.08 10^6/uL (4.70-6.10); White Blood Count 15.4 10^3/uL (4.0-11.0)
[2025-01-05 11:37] LABS: Anion Gap 11.6; Calcium 9.2 mg/dL (8.5-10.1); Carbon Dioxide 31.2 mmol/L (21.0-32.0); Chloride 100 mmol/L (98-107); Cholesterol 139 mg/dL (<=200); Estimated GFR (African America >60 (>=60 mL/min/1.73m^2); Estimated GFR (Non-African Ame >60 (>=60 mL/min/1.73m^2); Potassium 3.8 mmol/L (3.5-5.1); Sodium 139 mmol/L (136-145)
[2025-01-05 11:50] LABS: Alanine Aminotransferase 20 U/L (16-63); Albumin Globulin Ratio 1.0; Albumin Level 4.0 g/dL (3.4-5.0); Alkaline Phosphatase 74 U/L (46-116); Aspartate Amino Transferase 8 U/L (15-37); Blood Urea Nitrogen 10.0 mg/dL (7.0-18.0); Globulin 3.9 g/dL; Glucose 128 mg/dL (74-106); HDL Cholesterol 35 mg/dL (40-60); Total Protein 7.9 g/dL (6.4-8.2); Triglycerides 58 mg/dL (<=150); VLDL CHOLESTEROL 11.6 mg/dL
[2025-01-06 12:30] LABS: Microalbum Creatinine Ratio Ur 22.7 mg/g (0.0-29.9)
== END 2025-01-05 10:42 | disposition home or self-care (01) ==
PROVIDERS: PCP Nurse Practitioner Family; Visit Provider Nurse Practitioner Family
DX: E78.5 Hyperlipidemia, unspecified (principal); E11.9 Type 2 diabetes mellitus without complications; I10 Essential (primary) hypertension; Z12.5 Encounter for screening for malignant neoplasm of prostate
CPT/HCPCS: 36415; 80053; 80061; 82043; 82570; 85025; G0103

== ENCOUNTER 2025-01-14 08:18 | Outpatient (OUT) | payer MEDICARE, MEDICAID, SELFPAY ==
--- OUTSIDE RECORDS SUMMARY | 2024-05-10 09:20 | XMS_ITS ---
Author Organization [facility] in [place] Address [address] [place] [address] Care Team Providers Care Commission Sales Associate Name Role Phone Jazz Hyde CNP Primary Care Provider U Anny Ibrahmi Unavailable [phone] REASON FOR VISIT Nail Care Encounters Encounter Location Date Provider Diagnosis [facility] (PODIATRY) [address] [place] [address] [place] [address] 05/10/2024 Anny Valadez Plan Of Treatment No Information Progress Notes * Ernie GUERIN JrDOB:[birth year] (54 yo M)Acc No.[id number]:05/10/2024 UNLOCKED PROGRESS NOTE Nurse Visit Patient: Nicholas LAINEZTESSY Ernie Ramirez Jr :?JORGE L DeanCDOB:1970???Age:53 Y ???Sex:MaleDate:05/10/2024Phone:[phone]:[address] [place] [address], [address], [place], [id number]:Jazz Hyde CNP Subjective: * Chief Complaints: * 1 . Nail Care. * Medical History: Objective: * Vitals: Assessment: Plan: * Treatment: * * Electronic signature of Anny Valadez PA-C on 01/14/2025 at 08:21 AM ESTSign off status: PendingVisit Status:?CANC (Cancelled) * Provider: Sweta Valadez PA-C Date: 0 05/10/2024 Generated for Printing/Faxing/eTransmitting on:?01/14/2025 08:21 AM EST
--- OUTSIDE RECORDS SUMMARY | 2025-01-12 08:00 | XMS_ITS | Encounter Summary ---
Author Organization [facility] Address [address], [address] [place] [address] Care Team Providers Care Steel Spar Operator Name Role Phone Sarika Hydefer CHRIS Kim CNP Primary Care Pro vider Reason for Visit * ReasonCommentsFollow-upPatient presents for a follow up for COPD/MICHA. DME:[facility]. Patient reports receiving a new machine >1 week ago. Patient denies complaints with his new machine and reports great benefit. Patient com plains of SOB & Cough today. Patient is using Breztri daily. Patient admits to smoking daily. Patient would like to discuss Zepbound today. Encounter Details DateTypeDepartmentCare Team (Latest Contact Info)Anuhpvigpgz29/19/2025 8:00 AM ESTOffice Visit [facility] [address] [place] [address] [address] [place] [address] [place] [address] [place] [phone] Centrilobular emphysema (Primary Dx); MICHA (obstructive sleep apnea); Cigarette nicotine dependence with nicotine-induced disorder; Right lower lobe lung mass; Morbid obesity with BMI of 50.0-59.9; DM2 (diabetes mellitus, type 2); prison (current) use of 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s Social History Tobacco UseTypesPacks/DayYears UsedDateSmoking Tobacco: Every JxeFmgbqdfbni887.9 Started: 1986Smokeless Tobacco: Never Tobacco Cessation:Ready to Q uit: No; Counseling Given: Yes Alcohol UseStandard Drinks/WeekCommentsNot Currently0 (1 standard drink = 0.6 oz pure alcohol)Sex and Gender InformationValueDate RecordedSex Assigned at Male12/30/2024 2:44 PM ESTLegal CwqHgnt29/06/2025 2:42 PM ESTGender IdentityMale 12/30/2024 2:44 PM ESTSexual YdrikjqgbibEudtwbig08/06/2025 2:44 PM ESTdocumented as of this encounter Last Filed Vital Signs Vital SignReadingTime TakenCommentsBlood Czhzftgt263/7801/12/2025 8:00 AM EST Inwui994501/12/2025 8:00 AM ZCBCtjtjiksmhz34 ??C (96.8 ??F)01/12/2025 8:00 AM EST Respiratory Uumc5734 8:00 AM ESTOxygen Otydxanmbe66%01/12/2025 8:00 AM ESTon room airInhaled Oxygen Concentration--Ytflui825 kg (355 lb)01/12/2025 8:00 AM QXJYnhmhd813.8 cm (5' 10 )01/12/2025 8:00 AM ESTBody Mass Index50.94 01/12/2025 8:00 AM ESTdocumented in this encounter Patient Instructions * Patient Instructions* Ebenezer Frias DO - 01/12/2025 8:52 AM EST Work on cutting back on smoking. Continue current treatment. Get your CT chest done. documented in this encounter Progress Notes * Roel Pineda MA - 01/12/2025 8:17 AM EST Images from the original note were not included. No data to display * Ebenezer Frias DO - 01/12/2025 8:00 AM EST Images from the original note were not included. Date of encounter: 01/12/25 Ernie Rutledge 1970 (54 y.o.) [address] [place] [id number] Ernie Rutledge was seen today in the office by me. Below is my assessment and plan of the patient: Assessment & Plan Centrilobular emphysema Prior treatments: Breztri > Dulera (12/17/2019) + Dulera (12/17/2019); Advair (failed 12/17/2019), Symbicort (failed 12/17/2019), Incruse (failed 12/17/2019) Patient's breathing is slowly worsening. Last PFT showed very severe obstruction with FEV1 28%. He has been on triple inhaled therapy for many years including multiple combinations of inhalers. He istolerating Breztri and states it works. However, over the past 5 months, he has had 4 exacerbationsrequiring prednisone. I reviewed his options. They are somewhat limited due to testing results and his ongoing smoking history. Ohyessenia is unlikely to be covered by insurance. He does not have an elevated TLC that would make him a candidate for endobronchial valves - even if he did, he would not qualify as he is a current smoker. Would need to check eosinophils for Dupixent. Pulmonary rehab is a consideration - would need a PFT within the past 12 months, and his last PFT was 07/23/2023. Otherwise, his only option if his breathing worsens is daily prednisone, which would worsen his DM2 and obesity. A akjv-fx-pxai encounter was performed with the patient today in order to document continued need for a nebulizer with nebulized medications. He requires a nebulizer for the following reason: -The particular medication required to treat this condition, ipratropium/albuterol (DuoNeb) augments his current inhaled regimen. This documentation authorizes the renewal, reorder/refill, and replacement of the nebulizer and allassociated supplies. At this juncture, the best option for him is to stop smoking. He really does not have a desire to completely quit. I suggested cutting back at least some to a reasonable amount, such as down to 3/4ppd over the next 3 months. He replied he thought that was a reasonable goal. Will monitor him closelywith follow-up appointment in 3 months. MICHA (obstructive sleep apnea) A sdwo-fs-vrqf encounter was performed with the patient today in order to document continued need for positive airway pressure (PAP). -Current DME: [facility] Old Unit -Compliance was reviewed from 11/24/2024 to 12/23/2024 -Total days used: 30/ (100%) days -Total days of use >4 hours: 28/30 (93%) days with median use of 8 hours 58 minutes -Current model: AirCurve 10 VAuto -Current mode: CPAP @ 53qyX2N -Residual AHI: 0.2 -Median air leak: 5.8L/min New Unit -Compliance was reviewed from 12/23/2024 to 01/11/2025 -Total days used: 20/20 (100%) days -Total days of use >4 hours: 20/20 (100%) days with median use of 9 hours 18 minutes -Current model: AirCurve 10 VAuto -Current mode: BiPAP @ IPAP 07puP2P & EPAP 8cmH2O -Residual AHI: 0.5 -Median air leak: 0L/min -Mask/harness fitting: Great -Sleep quality with PAP: Well rested -Residual daytime hypersomnolence: Decreased with use -Recommendations: The patient's old unit broke and a new unit was ordered. As as in between jobs, Iwas not able to order it for the patient. The new unit appears to have been ordered as a BiPAP withdifferent settings than when I last saw him. It does not appear to have caused any change in his response (AHI remains excellent). I researched historical data: He previously was on a BiPAP in the past, such as 24.2/22.6 from and on date 04/01/2019. As he is tolerating the machine and the current settings, I do not see a reason to change them. He continues to voice excellent response and cannot sleep without it. -This documentation authorizes that the patient's DME may request to renew, reorder, and/or replacetubing, mask, filter, any other associated supplies, and the PAP device (if applicable). Cigarette nicotine dependence with nicotine-induced disorder Discussed smoking cessation for 4 minutes. I reviewed information as described above and importanceof smoking cessation. He was not ready to quit in the past. He also states that he is not committedto stop. He voiced understanding that no medication is going to make him stop unless he wants to himself. He was receptive to cutting back, and felt decreasing from 1 down to 3/4ppd was an achievablegoal. Will reassess him in 3 months and if he is at that goal, we will proceed to cut down to 1/2ppd. Right lower lobe lung mass History: -Chest CT 02/06/2024: No change in patchy/linear opacity -PET 08/11/2023: No abnormal FDG uptake anywhere -LDCT 07/28/2023: 7 x 7.4 x 1.9cm RLL peripheral vs. pleural-based mass RLL abnormality remains unchanged after 6 months with negative PET. The 1 year F/U CT has been scheduled for this week. Morbid obesity with BMI of 50.0-59.9 Discussed patient's morbid obesity in conjunction with underlying MICHA and DM2. Patient is asking about Zepbound for weight loss given his history of MICHA. He states his PCP prescribed it, but it was rejected. I reviewed his medications. He is already on Victoza. I explained to the patient that Victoza is in the same class as Zepbound (GLP-1 inhibitors). I also explained that Zepbound is the exact same as Mounjaro, except Mounjaro is marketed specifically for DM2. Patient states that he was on Ozempic, but and could not tolerate the GI side effects. He is tolerating Victoza well. He states his last A1c was 7.1. The patient has not seen a dietitian or edge bonder. He is not following any particular diet. He does not have an exercise program in place. I do not have any records of prior medications used (e.g.Adepex, Contrave). Because of these factors, I explained it would be very difficult to get Zepboundapproved. I stated he would have better luck looking into Mounjaro for DM2. If his A1c is not at his PCPs A1c goal for him, this could be considered a Victoza failure and there would be more ammunition to get Mounjaro approved. He would need to stop Victoza if he were to begin Mounjaro. I suggest the patient discuss this with his PCP, as I am not managing his DM2. He voiced understanding. Regardless if he switches or not, I strongly recommended looking into any dietary changes and beginning an exercise program okayed by his PCP. A majority of his issues could improve with lifestyle modifications (smoking, diet, exercise). DM2 (diabetes mellitus, type 2) Discussed Janel, Vargas/Lamar, and Nicole as above. Steroids prescribed for this patient's underlying pulmonary disease can adversely affect blood glucose levels, inducing hyperglycemia and/or worsening underlying diabetes. With is worsening COPD and repeated prednisone tapers, this may become a more significant issue. He was encouraged to follow-upwith his primary care provider to create a management plan. prison (current) use of 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s The patient was counseled to rinse and gargle after use of his steroid- containing inhaler to reducethe risk of oral candidiasis and other potential adverse effects. Planned follow-up: Return in about 3 months (around 04/14/2025) for COPD. Data: Alpha-1 antitrypsin (AAT) -Screening test: 07/29/2023 -Genotype: MM PFT -Date: 07/23/2023 -Location: [facility] -FEV1/FVC: 46% -FEV1: 28% -FVC: 48% -AJX85-35%: 10% -Bronchodialator response: Positive -RV: 163% -T% -DLCO: 55% PFT -Date: 09/11/2021 -Location: [facility] -FEV1/FVC: 61% -FEV1: 50% -FVC: 64% -CWV42-80%: 25% -Bronchodialator response: None -No plethysmography performed -DLCO: 62% PFT -Date: 04/01/2017 -Location: [facility] -FEV1/FVC: 71% -FEV1: 51% -FVC: 56% -Bronchodialator response: None -RV: 90% -T% -DLCO: 51% Veyo 01/12/2025 8:16 AM Sleep Medicine Sitting and reading 0 Watching TV 0 Sitting, inactive in a public place (e.g. a theatre or a meeting) 0 As a passenger in a car for an hour without a break 0 Lying down to rest in the afternoon when circumstances permit 0 Sitting and talking to someone 0 Sitting quietly after a lunch without alcohol 0 In a car, while stopped for a few minutes in traffic 0 Veyo Sleepiness Score 0 Subjective: Ernie Rutledge was previously established with me at [facility] and is now establishing with me at [facility]. He was last seen by me on 08/11/2024. His records from [facility] were reviewed. He states he had 3-4 exacerbations from last visit, which he used prednisone tapers. He has difficulty identifying a specific trigger. Though he voices benefit from Breztri use, there has been a slow decline over the years. He continues to smoke 1ppd and continues to express no concrete desire to quit, though he acknowledges the complications of continued tobacco abuse. We reviewed his PAP data. His old unit broke and he received a new device. He reports excellent usewith the new machine without any complaints about the mask, pressure, etc. I reviewed compliance from the old unit, which he continues to have a good response. HPI Follow-up Additional comments: Patient presents for a follow up for COPD/MICHA. DME:[facility]. Patient reports receiving a new machine >1 week ago. Patient denies complaints with his new machine and reports great benefit. Patient complains of SOB & Cough today. Patient is using Breztri daily. Patient admits to smoking daily. Patient would like to discuss Zepbound today. Last edited by Roel Pineda MA on 01/12/2025 8:19 AM. Review of systems: Review of Systems Constitutional: Positive for fatigue and unexpected weight change. Negative for chills, diaphoresisand fever. Respiratory: Positive for cough, chest tightness, shortness of breath and wheezing. Cardiovascular: Negative for chest pain. Psychiatric/Behavioral: Negative for sleep disturbance. Exam: BP 130/78 (BP Site: Left Upper Arm, Patient Position: Sitting, BP Cuff Size: Large Adult) Pulse 86 Temp 96.8 ??F (36 ??C) (Infrared) Resp 20 Ht 1.778 m (5' 10 ) Wt (!) 161 kg (355 lb) SpO2 95% Comment: on room air BMI 50.94 kg/m?? Physical Exam Constitutional: Appearance: He is obese. HENT: Mouth/Throat: Mouth: Mucous membranes are moist. Pharynx: Oropharynx is clear. Comments: Mallampati IV. No oral candidiasis. Cardiovascular: Rate and Rhythm: Normal rate and regular rhythm. Pulmonary: Comments: Unlabored. Diminished breath sounds. Faint expiratory wheeze upper lung goodson posteriorly. No rhonchi or crackles. Abdominal: Comments: Increased central adiposity Neurological: Mental Status: He is alert and oriented to person, place, and time. Psychiatric: Mood and Affect: Mood normal. Behavior: Behavior normal. Medical history: Past Medical History: Diagnosis Date Allergic rhinitis 01/12/2025 Centrilobular emphysema Cigarette nicotine dependence with nicotine-induced disorder DM2 (diabetes mellitus, type 2) GERD (gastroesophageal reflux disease) 01/12/2025 HLD (hyperlipidemia) HTN (hypertension) MICHA (obstructive sleep apnea) Right lower lobe lung mass Venous insufficiency (chronic) (peripheral) 01/12/2025 Past Surgical History: Procedure Laterality Date NO PAST SURGERIES No Known Allergies Current Outpatient Medications Medication Sig Dispense Refill atorvastatin (LIPITOR) 20 MG tablet Take 1 tablet by mouth daily ammonium lactate (AMLACTIN) 12 % cream Twice daily as needed for dry skin Alcohol Swabs ([employer] PREP) 70 % PADS USE 1 PAD TWICE A DAY glipiZIDE (GLUCOTROL) 10 MG tablet Take 1 tablet by mouth 2 times daily (before meals) guaiFENesin 1200 MG TB12 Daily at bedtime ipratropium (ATROVENT) 0.03 % nasal spray 2 sprays by Nasal route 2 times daily Accu-Chek Softclix Lancets MISC USE TO CHECK BLOOD SUGAR ONCE DAILY DIRECTED E11.9 Liraglutide (VICTOZA) 18 MG/3ML SOPN SC injection Inject 1.8 mg into the skin daily Indications: Diabetes lisinopril (PRINIVIL;ZESTRIL) 5 MG tablet Take 1 tablet by mouth daily metFORMIN (GLUCOPHAGE) 1000 MG tablet Take 1 tablet by mouth 2 times daily (with meals) montelukast (SINGULAIR) 10 MG tablet Take 1 tablet by mouth daily omeprazole (PRILOSEC) 40 MG delayed release capsule Take 1 capsule by mouth daily potassium chloride (KLOR-CON M) 20 MEQ extended release tablet Take 1 tablet by mouth daily albuterol sulfate HFA (PROVENTIL;VENTOLIN;PROAIR) 108 (90 Base) MCG/ACT inhaler Inhale 2 puffs intothe lungs every 4 hours as needed for Shortness of Breath 54 g 4 Cpopbjp-Tzsodhhmgwr-Hmtxqwzouz (BREZTRI AEROSPHERE) 160-9-4.8 MCG/ACT AERO Inhale 2 puffs into the lungs 2 times daily Rinse after use. 32.1 g 4 ipratropium 0.5 mg-albuterol 2.5 mg (DUONEB) 0.5-2.5 (3) MG/3ML SOLN nebulizer solution Inhale 3 mLs into the lungs every 4 hours 1620 mL 4 predniSONE (DELTASONE) 20 MG tablet Take 1 tablet by mouth daily (Patient not taking: Reported on 01/12/2025) No current facility-administered medications for this visit. Immunization History Administered Date(s) Administered COVID-19, COMIRNATY (Pfizer), (age 12y+), IM, 30mcg/0.3mL 11/16/2022 COVID-19, Inactive, PFIZER Bivalent, DO NOT Dilute, (age 12y+) 12/05/2021 COVID-19, Inactive, PFIZER PURPLE top, DILUTE for use, (age 12 y+) 05/18/2020, 06/08/2020, 12/23/2020 Social History Tobacco Use Smoking status: Every Day Current packs/day: 1.00 Average packs/day: 1 pack/day for 39.9 years (39.9 ttl pk-yrs) Types: Cigarettes Start date: 1986 Smokeless tobacco: Never Substance Use Topics Alcohol use: Not Currently Family History Problem Relation Age of Onset Cancer Mother Hypertension Mother Asthma Mother No Known Problems Father On this date 01/12/2025 I have spent 45 minutes (excluding smoking counseling) reviewing previous notes, test results, compliance data, prior PAP orders, counseling on weight loss medications, and face to face with the patient discussing the diagnoses and importance of compliance with the treatmentplan as well as documenting on the day of the visit. An electronic signature was used to authenticate this note. -Ebenezer Frias DO, PharmD, FACOI documented in this encounter Plan of Treatment DateTypeDepartmentCare Team (Latest Contact Info)Bnzpqfabhlm39/17/2026 9:00 AM ESTOffice Visit [facility] [address] [place] [address] [address] [place] [address] Ebenezer Frias DO [address] [place] [address] 6 [place] [address] F/U 3 MO COPD/OSAdocumented as of this encounter Visit Diagnoses Diagnosis Centrilobular emphysema- Primary Other emphysema MICHA (obstructive sleep apnea) Obstructive sleep apnea (adult) (pediatric) Cigarette nicotine dependence with nicotine-induced disorder Unspecified drug-induced mental disorder Right lower lobe lung mass Swelling, mass, or lump in chest Morbid obesity with BMI of 50.0-59.9 DM2 (diabetes mellitus, type 2) prison (current) use of 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s documented in this encounter Care Teams Team MemberRelationshipSpecialtyStart DateEnd Date Jazz Hyde APRN - G[facility] [address] [place] [address] PCP - Oezenib81/6/25documented as of this encounter
--- OUTSIDE RECORDS SUMMARY | 2025-01-14 08:21 | XMS_ITS | Clinical Summary ---
Author Organization [facility] Address [address], [address] [place] [address] Care Team Providers Care Consumer Education Specialist Name Role Phone Jazz Hyde APRN, CNP Primary Care Pro vider Allergies No known active allergies Medications MedicationSigDispense QuantityRefillsLast FilledStart DateEnd DateStatus atorvastatin (LIPITOR) 20 MG tablet Take 1 tablet by mouth daily5Active ammonium lactate (AMLACTIN) 12 % cream Twice daily as needed for dry skin5Active Alcohol Swabs ([employer] PREP) 70 % PADS USE 1 PAD TWICE A DAY5Active glipiZIDE (GLUCOTROL) 10 MG tablet Take 1 tablet by mouth 2 times daily (before meals)5Active guaiFENesin 1200 MG TB12 Daily at ccfedrj28/30/2025Active ipratropium (ATROVENT) 0.03 % nasal spray 2 sprays by Nasal route 2 times daily5Active Accu-Chek Softclix Lancets MISC USE TO CHECK BLOOD SUGAR ONCE DAILY DIRECTED E11.9095Active Liraglutide (VICTOZA) 18 MG/3ML SOPN SC injection Indications:Diabetes MellitusInject 1.8 mg into the skin daily Indications: DiabetesActive lisinopril (PRINIVIL;ZESTRIL) 5 MG tablet Take 1 tablet by mouth daily5Active metFORMIN (GLUCOPHAGE) 1000 MG tablet Take 1 tablet by mouth 2 times daily (with meals)5Active montelukast (SINGULAIR) 10 MG tablet Take 1 tablet by mouth dailyActive omeprazole (PRILOSEC) 40 MG delayed release capsule Take 1 capsule by mouth daily5Active potassium chloride (KLOR-CON M) 20 MEQ extended release tablet Take 1 tablet by mouth daily5Active predniSONE (DELTASONE) 20 MG tablet Take 1 tablet by mouth daily5Active albuterol sulfate HFA (PROVENTIL;VENTOLIN;PROAIR) 108 (90 Base) MCG/ACT inhaler Indications:Centrilobular emphysema (HCC)Inhale 2 puffs into the lungs every 4 hours as needed for Shortness of Breath 54 g 5Active Cxxpkkx-Zuwlclsulxk-Bqbbzhfdji (BREZTRI AEROSPHERE) 160-9-4.8 MCG/ACT AERO Indications:Centrilobular emphysema (HCC)Inhale 2 puffs into the lungs 2 times daily Rinse after use. 32.1 g 5Active ipratropium 0.5 mg-albuterol 2.5 mg (DUONEB) 0.5-2.5 (3) MG/3ML SOLN nebulizer solution Indications:Centrilobular emphysema (HCC)Inhale 3 mLs into the lungs every 4 hours 1620 mL tive BREZTRI AEROSPHERE 160-9-4.8 MCG/ACT AERO Inhale 2 puffs into the lungs in the morning and 2 puffs in the evening. Discontinued(REORDER) albuterol sulfate HFA (PROVENTIL;VENTOLIN;PROAIR) 108 (90 Base) MCG/ACT inhaler Inhale 2 puffs into the lungs every 4 hours as needed for Shortness of Breath or Gwexjspw53/19/2025Discontinued(REORDER) ipratropium 0.5 mg-albuterol 2.5 mg (DUONEB) 0.5-2.5 (3) MG/3ML SOLN nebulizer solution Inhale 3 mLs into the lungs every 6 hours as needed for Wheezing or Shortness of Sfqexv88Discontinued(REORDER) Active Problems ProblemNoted DateDiagnosed DateMorbid obesity with BMI of 50.0-59.9103/14/2024 Assessment & Plan (01/12/2025 11:02 AM EST): Discussed patient's morbid obesity in conjunction with [...] patient has not seen a dietitian or commercial sales manager. He is not following any particular diet. [...] improve with lifestyle modifications (smoking, diet, exercise). 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 Centrilobular yulklbdjx90/02/2017 Assessment & Plan (01/12/2025 11:02 AM EST): Prior treatments: Breztri > Dulera (12/17/2019) + [...] testing results and his ongoing smoking history. Ohtuvayre is unlikely to be covered by insurance. [...] would worsen his DM2 and obesity. A kzbc-hx-cztp encounter was performed with the patient today [...] in 3 months. MICHA (obstructive sleep apnea) Assessment & Plan (01/12/2025 11:02 AM EST): A fpts-zi-arhi encounter was performed with the patient today in order to document continued need for positive airway pressure (PAP). -Current DME: [facility] -Compliance was reviewed from 11/24/2024 to 12/23/2024 -Total days used: 30 (100%) days -Total days of use >4 hours: 28/ (93%) days with median use of 8 hours 58 minutes -Current model: AirCurve 10 VAuto -Current mode: CPAP @ 47ryD4M -Residual AHI: 0.2 -Median air leak: 5.8L/min New Unit -Compliance was reviewed from 12/23/2024 to 01/11/2025 -Total days used: 20/20 (100%) days -Total days of use >4 hours: 20/ (100%) days with median use of 9 hours 18 minutes -Current model: AirCurve 10 VAuto -Current mode: BiPAP @ IPAP 02cwL3Y & EPAP 8cmH2O -Residual AHI: 0.5 -Median [...] applicable). Cigarette nicotine dependence with nicotine-induced disorder Assessment & Plan (01/12/2025 11:02 AM EST): Discussed smoking cessation for 4 minutes. I [...] will proceed to cut down to 1/2ppd. DM2 (diabetes mellitus, type 2) Assessment & Plan (01/12/2025 11:02 AM EST): Discussed Victoza, Mounjaro/Zepbound, and Ozempic as above. Steroids prescribed for this patient's underlying pulmonary disease can adversely affect blood glucose levels, inducing hyperglycemia and/or worsening underlying diabetes. With is worsening COPD and repeated prednisone tapers, this may become a more significant issue. He was encouraged to follow-upwith his primary care provider to create a management plan. Right lower lobe lung mass Assessment & Plan (01/12/2025 11:02 AM EST): History: -Chest CT 02/06/2024: No change in patchy/linear opacity -PET 08/11/2023: No abnormal FDG uptake anywhere -LDCT 07/28/2023: 7 x 7.4 x 1.9cm RLL peripheral vs. pleural-based mass RLL abnormality remains unchanged after 6 months with negative PET. The 1 year F/U CT has been scheduled for this week. 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 Last 3 Months Family History Medical HistoryRelationNameCommentsNo Known ProblemsFatherAsthmaMotherCancer MotherHypertensionMotherRelationNameStatusCommentsFatherMother Social History Tobacco UseTypesPacks/DayYears UsedDateSmoking Tobacco: Every AydZeinufwusj960.9 Started: 1985Smokeless Tobacco: Never Tobacco Cessation:Ready to Q uit: No; Counseling Given: Yes Alcohol UseStandard Drinks/WeekCommentsNot Currently0 (1 standard drink = 0.6 oz pure alcohol)Sex and Gender InformationValueDate RecordedSex Assigned at Male12/30/2024 2:44 PM ESTLegal IsxYobc22/06/2025 2:42 PM ESTGender IdentityMale 12/30/2024 2:44 PM ESTSexual PyvnvutpgfzShbbuxts79/06/2025 2:44 PM EST Last Filed Vital Signs Vital SignReadingTime TakenCommentsBlood Danefhlj748/7801/12/2025 8:00 AM EST Eqmgv609001/12/2025 8:00 AM ZBRAaijebuiapv99 ??C (96.8 ??F)01/12/2025 8:00 AM EST Respiratory Wxam1427 8:00 AM ESTOxygen Tallgphxch99%01/12/2025 8:00 AM ESTon room airInhaled Oxygen Concentration--Jnsref972 kg (355 lb)01/12/2025 8:00 AM QHVDokkzg404.8 cm (5' 10 )01/12/2025 8:00 AM ESTBody Mass Index50.94 01/12/2025 8:00 AM EST Plan of Treatment DateTypeDepartmentCare Team (Latest Contact Info)Zcutaxjwcrc99/17/2026 9:00 AM ESTOffice Visit [facility] [address], [address] [place] [address] [place] [address] [place] [address] [address] [place] [address] F/U 3 MO COPD/OSAHealth MaintenanceDue DateLast TiswLxmynfexJ1S test (Diabetic or Prediabetic)10/12/1979Diabetic foot exam10/12/19790036Ksqsjr77/18/1980Depression Ulybnp8610/11/1981HIV nlrdbh2410/11/1984Diabetic Alb to Cr ratio (uACR) test 10/12/1987Diabetic retinal exam10/12/1987GFR test (Diabetes, CKD 3-4, OR last GFR 15-59)10/12/1987Hepatitis C cocqer1210/12/1987DTaP/Tdap/Td vaccine (1 - Tdap) 1988Hepatitis B vaccine (1 of 3 - 19+ 3-dose series)1988Colonoscopy 2014Colorectal Cancer Ejfhdl0910/11/2014FIT/FOBT: Average risk2014 Fecal-DNA (Cologuard): Average risk2014Sigmoidoscopy/CT colonography 2014Lung Cancer Screening &/or Dsvgdkitph55/18/2020Shingles vaccine (1 of 2)10/12/2019Flu vaccine (#1)5011/16/2022, 12/05/2021, 12/02/2020, Additional history existsCOVID-19 Vaccine ( season)2024 11/16/2022, 12/05/2021, 12/23/2020, Additional history existsAnnual Wellness Visit (Medicare)12/30/2024Pneumococcal 50+ years WgxbartLxwbjmuki44/25/2025 Hepatitis A vaccineAged OutNo longer eligible based on [...] Date Jazz Hyde APRN - [facility] [address] [place] [address] PCP - Manfses47/6/25
--- NOTE | 2025-01-14 08:22 | CT_ITS ---
The [address] [address] Patient Name: FRANKO GUERIN MRN: [id number] date: 1970 Sex: M Assigned Patient Location: CT Current Patient Location: CT Accession/Order Number: [id number] Exam Date: 01/14/2025 08:30 Report Date: 01/14/2025 09:24 At the request of: SU GARCIA Procedure: CT lung screening low-dose LOW-DOSE SCREENING CHEST CT WITHOUT CONTRAST COMPARISON: 02/06/2024 and 07/28/2023 CLINICAL DATA: Current smoker with 35 pack year history Spiral axial unenhanced low-dose images were obtained through the chest. Images were reviewed using both narrow and wide window settings. This CT exam was performed using one or more following dose reduction techniques: Automated exposure control, adjustment of the mA and/or kV according to patient size, or use of iterative reconstruction technique. The heart is normal in size. No pericardial effusion is seen. There is coronary artery disease. No aortic aneurysm is identified. There is minor plaque at the aortic arch and proximal great vessels. A few small mediastinal lymph nodes are again seen. There is also mild gynecomastia. Endplate spurring is visualized at the spine. Scarring and/or atelectasis is present, predominantly on the right where there is some associated pleural thickening at the base posteriorly. No interval change is noted. There is no developing consolidation, pleural effusion or pneumothorax. An 8mm irregular, somewhat nodular opacity is seen at the right upper lobe (axial image 88, coronal 101) that is new. There is a tiny calcified right lower lobe granuloma. No other pulmonary nodularity is seen. Limited cuts through the upper abdomen show no contributory findings. CT/CT lung screening low-dose IMPRESSION: SIMILAR SCARRING AND/OR ATELECTASIS. NEW SMALL IRREGULAR OPACITY AT THE RIGHT UPPER LOBE. THIS MIGHT BE INFECTIOUS OR INFLAMMATORY HOWEVER DEVELOPING NODULE IS NOT EXCLUDED. Category 4A - probably suspicious 3 month low-dose CT follow-up suggested Impression dictated by: Felisha Reynolds M.D. 01/14/2025 9:24 AM Dictation Location: [place] [address] Electronically authenticated by: [id number] Y Date: 01/14/2025 09:24
--- OUTSIDE RECORDS SUMMARY | 2025-01-14 08:22 | XMS_ITS | Clinical Summary ---
Author Organization [facility] Address [address] [place] [address] Care Team Providers Care Digital Strategy Specialist Name Role Phone Pato Denson MD Primary Care Provider [phone] Antoinette Jeong HARDWARE DESIGN ENGINEER Unavailable [phone] Allergies No known active allergies Medications MedicationSigDispense [...] TAKE 1 (ONE) TABLET DAILY NEEDED FOR QSMXYJXF44/17/2020Active Alcohol Prep Pads PadM USE 1 PAD [...] pulmonary disease (COPD)10/10/2019PND (paroxysmal nocturnal dyspnea)01/23/2018 Cigarette jgvkob8504/01/2017Centrilobular pgwentwde16/02/2017Obstructive sleep apnea11/25/2016Tobacco abuse qenigzns94/02/2017Bilateral edema of lower uyczpmjmv49/02/2017 Family History Medical HistoryRelationCommentsCancerMotherHypertensionMotherRelationStatus CommentsFatherAliveMotherDeceased Social History Tobacco UseTypesPacks/DayYears UsedDateSmoking Tobacco: Every NdwRyzvoicczb236 Smokeless Tobacco: Never Tobacco Cessation:Ready to Q uit: Yes; Counseling Given: Yes Alcohol UseStandard Drinks/WeekCommentsNo0 (1 standard drink = 0.6 oz pure alcohol)Sex and Gender InformationValueDate RecordedSex Assigned at BirthNot on fileLegal AbgIwlq9811/01/2013 12:57 PM EDTGender FvdfpdjpBszu60/30/2018 1:04 PM ESTSexual XzzuulhdrapOmallsfn71/30/2018 1:04 PM EST Last Filed Vital Signs Vital SignReadingTime TakenCommentsBlood Ubediypu216/75010/10/2019 11:13 AM EDT Yticp81795/16/2020 11:13 AM SRWBoybralalvr21.8 ??C (98.3 ??F)10/10/2019 8:08 AM EDTRespiratory Drvf416610/10/2019 11:13 AM EDTOxygen Tqtshxxgnm63%10/10/2019 11:13 AM EDTInhaled Oxygen Concentration--Ccxrre053.1 kg (363 lb 15.7 oz)10/10/2019 3:56 AM RSCNtblvs597.8 cm (5' 10 )10/09/2019 10:37 PM EDTBody Mass Index52.23 10/09/2019 10:37 PM EDT Plan of Treatment Health MaintenanceDue DateLast DoneCommentsCT Eepeyjclesya84/18/1970Colonoscopy 1969Colorectal Cancer Screening/Otetbukvdc22/18/1970Fecal DNA1969 Fecal occult blood test (FOBT,FIT)1969PSA Level1969MMR Vaccines (1 of 1 - Standard series)1970Wellness Visit1972Depression Screening/Follow-Up (PHQ-2/9)1981HIV Ioopmwrxg38/18/1985Hepatitis C Qfpdtfnum35/18/1988Hepatitis B Vaccines (1 of 3 - 19+ [...] AAccovaughn TypeRelation to PatientDate of BirthPhone Billing AddressPersonal/BprnqvSvsb43/18/1971 [phone] (Home) [address] [place] [address] Advance Directives For more information, please contact: [phone] * Full Code (Latest Code Status on File) Date ActivatedDate InactivatedComments10/10/2019 4:19 AM10/10/2019 4:28 PM Care Teams Team MemberRelationshipSpecialtyStart DateEnd Date Pato Denson MD PCP - GeneralInternal Medicine06/17/14 Antoinette Jeong, HARDWARE DESIGN ENGINEER [address] [address] Nurse PractitionerPulmonology10/21/19
--- OUTSIDE RECORDS SUMMARY | 2025-01-14 08:22 | XMS_ITS | Patient Health Record ---
Author Organization [facility] [place] Address [address] [place] [address] Care Team Providers Care Fuller Brush Worker Name Role Phone Jazz Hyde CNP Primary Care Provider Funmi wagnerangie PoplarAnny Unavailable [phone] Jac Matthew Unavailable [phone] Allergies No Known Allergies Results Component Value Reference Range Notes CT chest wo con Reviewed date:02/11/2024 07:41:06 AM Interpretation: Performing Lab: Notes/Report: Source Facility: [place] [address] CT Scan Report Signed Patient: ENRIE GUERIN MR#: [id number] : 1970 Acct:[id number] Age/Sex: 53 / M ADM Date: 02/06/24 Loc: CT Attending Dr: Jac Matthew D.O. Ordering Physician: Jac Matthew D.O. Date of Service: 02/06/24 Procedure(s): CT chest wo con Accession Number(s): [id number] cc: Franchesca Don NP [place] [id number] Patient Name: ERNIE GUERIN MRN: [id number] date: 1970 Sex: M Assigned Patient Location: CT Current Patient Location: Accession/Order Number: [id number] Exam Date: 02/06/2024 08:01 Report Date: 02/09/2024 [...] Signed By: 02/09/24 1257 DD/ 1254 TD/TT: Commissioned Security Officer: CT Chest w/o contrast Reviewed date:02/09/2024 01:11:36 [...] 90 DaysActiveglipiZIDE 10 MGOral; Duration: 90 DaysActiveIpratropium Centuria 0.03 %Nasal; Duration: 90 DaysActive Victoza 18 MG/3MLas directed Akdjhoyunejc19/05/2025ActiveKlor-Con M20 20 MEQ Oral; Duration: 90 DaysActiveIpratropium-Albuterol [...] 03/31/2024Not-Taking Immunizations Vaccine Route Administration Date Status [facility] Pfizer Syringe Pre -Filled 30 mcg/0.3 mL Unknown 11/16/2022 Administered Flu, Flucelvax (97419) 2 yrs+, single-dose syringe (5841-4405)Mtnzgdv8611/16/2022 Administered Social History Tobacco Use: Social History [...] Risk Notes Problem Chronic obstructive pulmonary disease (59293649) Chronic obstructive pulmonary disease, unspecified (J44.9) ActiveconfirmedProblemPolyneuropathy due to type 2 diabetes mellitus (527844637) Type 2 diabetes mellitus with diabetic polyneuropathy (E11.42)Activeconfirmed ProblemFoot ulcer due to type 2 diabetes mellitus (3504178384734)Type 2 diabetes mellitus with foot ulcer (E11.621)ActiveconfirmedProblemChronic ulcer of foot (809914508)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)ActiveconfirmedProblemLong-term current use of 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 (757338697)MCFP (current) use of 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s (Z79.51)Activeconfirmed ProblemMorbid obesity (384419050)Morbid obesity (E66.01)ActiveconfirmedProblem COPD - Chronic obstructive pulmonary disease (41902505)COPD (chronic obstructive pulmonary disease) (J44.9)ActiveconfirmedProblemObstructive sleep apnea syndrome (29227392)MICHA (obstructive sleep apnea) (G47.33)ActiveconfirmedProblemDiabetes mellitus type 2 (disorder) (68983751)DM2 (diabetes mellitus, type 2) (E11.9) ActiveconfirmedProblemMental disorder caused by drug (582551928)Cigarette nicotine dependence with nicotine-induced disorder (F17.219)Activeconfirmed ProblemLung field abnormal (562977909)Right lower lobe lung mass (R91.8)Active confirmedProblemBody mass index 40+ - morbidly obese (461068402)Body mass index [BMI] 50.0-59.9, adult (Z68.43)Activeconfirmed Vital [...] Encounter Location Date Provider Diagnosis [facility] [address] [place] [address] 03/31/2024 Jac Matthew COPD (chronic obstructive pulmonary disease) J44.9 ; Cigarette nicotine dependence with nicotine-induced disorder F17.219 ; Morbid obesity E66.01 and Body mass index [BMI] 50.0-59.9, adult Z68.43 [facility] [address] [place] [address] 02/10/2024 [facility] COPD (chronic obstructive pulmonary disease) J44.9 ; Right lower lobe lung mass R91.8 ; Cigarette nicotine dependence with nicotine-induced disorder F17.219 ; MICHA (obstructive sleep apnea) G47.33 ; DM2 (diabetes mellitus, type 2) E11.9 ; Morbid obesity E66.01 ; MCFP (current) use of 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s Z79.51 and Body mass index [BMI] 50.0-59.9, adult Z68.43 [facility] [address] [place] [address] 08/11/2024 [facility] COPD (chronic obstructive pulmonary disease) J44.9 ; Right lower lobe lung mass R91.8 ; Cigarette nicotine dependence with nicotine-induced disorder F17.219 ; MICHA (obstructive sleep apnea) G47.33 ; DM2 (diabetes mellitus, type 2) E11.9 ; Morbid obesity E66.01 ; 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.51 and Body mass index [BMI] 50.0-59.9, adult Z68.43 [facility] (PODIATRY) [address] [place] [address] [place] [address] 02/11/2024 Anny Valadez DM2 (diabetes mellitus, type 2) E11.9 [facility] [address] [place] [address] 03/25/2024 [facility] [address] [place] [address]/17/2025 [facility] [address] [place] [address] 09/06/2024[facility] [address] [place] [address]/[facility] Assessments Encounter Date Diagnosis (ICD Code) Assessment [...] hours later, he can then use DuoNeb. Dzke-lw-fgsz encounter performed with the patient to document continued need for a nebulizer with nebulized medications. -Current nebulized medications: DuoNeb -Symptom control: Better with use -Reported side or adverse effects: None -Recommendations: Continue DuoNeb. Renew/reorder/refill nebulizer and supplies. 03/31/2024OPD (chronic obstructive pulmonary disease) (ICD-10 - J44.9) Tbiz-tb-qqtu encounter performed with the patient to document [...] to review his other issuesI am monitoring. 03/31/2024igarette nicotine dependence with nicotine-induced disorder (ICD-10 - [...] Z68.43)08/11/2024OSA (obstructive sleep apnea) (ICD-10 - G47.33) Xrpr-hi-gopk encounter performed with the patient to document continued need for PAP therapy. -Compliance was reviewed from 07/12/2024 - 08/10/2024 -Total days used: (100%) -Total of all days >4 hours of use: 30 (100%) -Current model, mode, & pressure: AirCurve 10 VAuto 56bnF3M -Residual AHI: 0.2 -Air leak (median): 1.6L/min -Mask/harness fitting: No complaints -Sleep quality: Better with PAP use -Daytime hypersomnolence: Decreased with PAP use -Recommendations: Superb compliance with voiced benefit and no concerns expressed today. Continue CPAP @ current settings @ HS/naps. -Note: This hyde-tb-wplm visit comes with my authorization that the patient's DME may request to renew, reorder, and/or replace tubing, supplies, mask, and/or PAP device (if applicable). 02/10/2024OSA (obstructive sleep apnea) (ICD-10 - G47.33) Ymoc-mx-cljd encounter performed with the patient to document continued need for PAP therapy. -Compliance was reviewed from 01/10/2024 - 02/08/2024 -Total days used: (100%) -Total of all days >4 hours of use: 30 (100%) -Current model, mode, & pressure: AirCurve 10 VAuto 93zyF8A -Residual AHI: 0.2 -Air leak (95th percentile): 49.8L/min -Mask/harness fitting: No complaints -Sleep quality: Sleeps well with limited nocturnal awakenings -Daytime hypersomnolence: Feels well-rested in the morning -Recommendations: Maintain superb compliance without any significant issues. He loves his machine and cannot sleep without it. MICHA has resolved with use. Continue CPAP @ current settings @ HS/naps. -Note: This vtcr-ae-npsz visit comes with my authorization that the [...] to annual LDCT screening. Patient voiced understanding. Tpfu-rn-gczw encounter performed with the patient to document continued need for PAP therapy. -Compliance was reviewed from 01/10/2024 - 02/08/2024 -Total days used: 30/30 (100%) -Total of all days >4 hours of use: 30/30 (100%) -Current model, mode, & pressure: AirCurve 10 VAuto 80fcT5U -Residual AHI: 0.2 -Air leak (95th percentile): 49.8L/min -Mask/harness fitting: No complaints -Sleep quality: Sleeps well with limited nocturnal awakenings -Daytime hypersomnolence: Feels well-rested in the morning -Recommendations: Maintain superb compliance without any significant issues. He loves his machine and cannot sleep without it. MICHA has resolved with use. Continue CPAP @ current settings @ HS/naps. 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
--- OUTSIDE RECORDS SUMMARY | 2025-01-14 08:22 | XMS_ITS | Clinical Summary ---
Author Organization [facility] Address [address] [place] [address] Care Team Providers Care Transmission Line Engineer Name Role Phone Unavailable Primary Care Provider Unavailabl e Social History Tobacco UseTypesPacks/DayYears UsedDateSmoking Tobacco: Never AssessedSex and Gender InformationValueDate RecordedSex Assigned at BirthNot on fileLegal Sex Male09/04/2023 4:04 PM EDTGender IdentityNot on fileSexual OrientationNot on file Plan of Treatment Not on file Insurance
--- OUTSIDE RECORDS SUMMARY | 2025-01-14 08:23 | XMS_ITS | CCD ---
Author Organization [facility] Care Team Providers Care Second Floor Operator Name Role Phone Verma, Bernadine Unavailable PALMER, DREMA DAVONTE Unavailable Unavailab le PALMER, DREMA DAVONTE Unavailable Unavailab le VERMA, BERNADINE Unavailable Unavailable Verma, Bernadine Primary Care Provider [phone] VERMA, BERNADINE Primary Care Unavailable DEBBIE ERWIN Attending Unavailabl e Verma, Bernadine Primary Care Provider [phone] Angelo Rios Unavailable VERMA, BERNADINE Primary Care Unavailable MYAH VALLE Attending Unav ailable MYAH VALLE Admitting Unav ailable MYAH VALLE Referring Unav ailable VERMA, BERNADINE Primary Care Unavailable CECI GTZ Admitting Unavailable QUIN REYNA Attending Unavaila ble Verma, Bernadine Primary Care Provider Al Solomon Unavailable [phone] SELF, SELF Referring Unavailable DORA VILLAGOMEZ [...] VERMA, BERNADINE Primary Care Unavailable Jarett SALINAS, [facility] Primary Care Provider Jean-Paul MENDIETA, Al G Unavailable Jarett SALINAS, [facility] Primary Care Provider Jean-Paul MENDIETA Al G Unavailable Jean-Paul MENDIETA, Al G Unavailable [phone] Jarett SALINAS, [facility] Primary [place] [facility] Provider Jean-Paul MENDIETA Al G Unavailable SELF, SELF Referring Unavailable DORA VILLAGOMEZ Attending Unavailable VERMA [facility] Primary Care Unavailable DORA VILLAGOMEZ Referring Unavailable KIKI CHILDRESS Primary Care Physician Jj Stevens Primary Care Physician Jj Stevens Admitting Unavailable Link, Jj Jay Attending Unavailable Link, Jj Jay Admitting Unavailable Link, Jj Jay Attending Unavailable Franchesca Don Admitting Unavailable Franchesca Don Attending Unavailable Casey Morse Attending Unavailable Casey Morse Admitting Unavailable Jarett SALINAS, [facility] Primary [place] [facility] Provider Jean-Paul CREDIT REFERENCE CLERK Al G Unavailable Jazz Hyde Attending Unavailable Jazz Hyde Admitting Unavailable Jazz Hyde APRN Attending Provider Jazz Hyde APRN Attending Provider Jazz Hyde APRN Primary Care Provider Jazz Hyde APRN Attending Provider Jazz Hyde APRN Primary Care Provider Jazz Hyde APRN Attending Provider Jazz Hyde APRN Primary Care Provider Jazz Hyde APRN Attending Provider Blanca Belcher DO Attending Provider Medications Current Medications MedicationDrug Class(es)DatesSig (Normalized)Sig (Original)acetaminophen 500 mg oral tablet (18 sources)acetaminophen (TYLENOL EXTRA STRENGTH) 500 MG tablet Take by mouth. 0 Jnsvzx18 actuat aclidinium bromide 0.4 mg/actuat dry powder inhaler (19 sources)Start: 86-43-1685ieso 400 ug by inhalation every twelve hours aclidinium bromide (Tudorza Pressair) 400 mcg/actuation AePB Inhale 1 (one) puff (400 mcg total) every 12 (twelve) hours . 1 each 02/16/2020 ActiveStart: 45-30-0520swpt 400 ug by inhalation every twelve hoursaclidinium bromide (Tudorza Pressair) 400 mcg/actuation AePB Inhale 1 (one) puff (400 mcg total) every 12 (twelve) hours . 1 each 10/21/2019 ActiveStart: 58-77-3289gyit 400 ug by inhalation every twelve hoursaclidinium bromide (TUDORZA PRESSAIR) 400 mcg/actuation AePB Inhale 1 (one) puff (400 mcg total) every 12 (twelve) hours . 1 each 06/04/2018 ActiveStart: 08-11-2017 End: 14-97-6013atya 1 dose by mouth every twelve hoursTUDORZA PRESSAIR 400 mcg/actuation AePB INHALE ONE DOSE BY MOUTH EVERY 12 HOURS 1 each 08/11/2017 06/15/2018 DiscontinuedStart: 53-55-0798bmyk 1 dose by mouth every twelve hours TUDORZA PRESSAIR 400 mcg/actuation AePB INHALE ONE DOSE BY MOUTH EVERY 12 HOURS 1 each 08/09/2016 [id number] 200 actuat albuterol 0.09 mg/actuat metered dose inhaler (20 sources)beta2-Adrenergic AgonistStart: 08-18-2023 End: 03-80-7495vicl 1 puff(s) by inhalation every four hours as needed for wheezingAlbuterol Sulfate (Ventolin Hfa) 90 mcg/actuation HFA aerosol inhaler Active 2 PUFF INHALATION Every 4 hours as needed for shortness of breath or wheezing 6.7 5 January 16, 2024 9:12am Chronic obstructive pulmonary disease Chronic obstructive pulmonary disease, unspecified Complies with drug therapy Start: 80-65-5179dwiw 2 puff(s) by inhalation every six hours as needed for wheezingalbuterol 90 mcg/actuation inhaler Inhale 2 (two) puffs every 6 (six) hours as needed for wheezing . 1 Inhaler 11 06/04/2018 ActiveStart: 11-27-2017 End: 94-46-3269fqxw 2 puff(s) by inhalation every six hours as needed for wheezingalbuterol 90 mcg/actuation inhaler Inhale 2 (two) puffs every 6 (six) hours as needed for wheezing . 1 Inhaler 11 06/04/2018 ActiveStart: 04-01-2017 End: 60-21-4426ebyumnvdb (PROVENTIL) 2.5 mg /3 mL (0.083 %) [...] wheezing. Activealbuterol 90 mcg/actuation inhaler (4 sources)Start: 01-27-9835zahd 2 puff(s) by inhalation every six hours as needed for wheezingalbuterol 90 mcg/actuation inhaler Inhale 2 (two) puffs every 6 (six) hours as needed for wheezing . 1 Inhaler 11 06/04/2018 ActiveStart: 07-32-4563wmzl 2 puff(s) by inhalation every six hours as needed for wheezing albuterol 90 mcg/actuation inhaler Inhale 2 (two) puffs every 6 (six) hours as needed for wheezing . 1 Inhaler 06/04/2018 SuspendedAlbuterol Sulfate (Ventolin Hfa) 90 mcg/actuation HFA aerosol inhaler (3 sources)Start: 85-24-4412pkhm 1 puff(s) by inhalation every four hours as needed for wheezingAlbuterol Sulfate (Ventolin Hfa) 90 mcg/actuation HFA aerosol inhaler Active 2 PUFF INHALATION Every 4 hours as needed for shortness of breath or wheezing 6.7 January 16, 2024 10:12amStart: 42-54-8600xnjk 1 puff(s) by inhalation every four hours as needed for wheezingAlbuterol Sulfate (Ventolin Hfa) 90 mcg/actuation HFA aerosol inhaler Active 2 PUFF INHALATION Every 4 hours as needed for shortness of breath or wheezing 6.7 January 16, 2024 9:12am azithromycin 250 mg oral tablet (2 sources)Macrolide AntimicrobialStart: 46-54-1708khirteohjkqf (Zithromax) 250 MG tablet Take 2 pills on day 1, and then 1 pill a day for 4 days. . 6tablet 0 11/24/2019 ActiveBlood-Glucose Meter (Accu-Chek Guide Glucose Meter) misc (6 sources)Start: 55-38-3103Tpusi-Glucose Meter (Accu-Chek Guide Glucose Meter) misc Active 0 .Route 1 0 February 11, 2024 12:00am As directedStart: 70-13-0954Euvdu-Glucose Meter (Accu-Chek Guide Glucose Meter) misc Active 0 .Route 1 February 11, 2024 1:00am As directedStart: 85-70-8141Biefe-Glucose Meter (Accu-Chek Guide Glucose Meter) misc Active 0 .Route 1 February 11, 2024 12:00am As yqlxgcqdBpjxyfhyaj-Unauahux-Vglfknccci (12 sources)Corticosteroid, beta2-Adrenergic AgonistStart: 08-25-2023 Tvgbdvvlxk-Ywbnpxrw-Zeswictxog (Breztri Aerosphere) 160-9-4.8 mcg/actuation HFA aerosol inhaler Active 2 INH INHALATION Twice daily 5.9 30 August 25, 2023 8:28am Complies with drug therapyStart: 66-21-9107Vdkyvdxdmw-Glycopyr-Formoterol (Breztri Aerosphere) 160-9-4.8 mcg/actuation HFA aerosol inhaler Active 2 INH INHALATION Twice daily 5.9 30 August 25, 2023 9:28am Complies with drug therapy Start: 08-18-2023 End: 17-64-9315Ieoyuywqmo-Glycopyr-Formoterol (Breztri Aerosphere) 160-9-4.8 mcg/actuation HFA aerosol inhaler Discontinued 2 INH INHALATION Twice daily August 17, 2023 11:00pm August 25, 2023 8:03avLdtprzrhve-Abdpdzvu-Ppeakzbhwi (Breztri Aerosphere) 160-9-4.8 mcg/actuation HFA aerosol inhaler (5 sources)Start: 21-12-9031Lkwhaibmlt-Glycopyr-Formoterol (Breztri Aerosphere) 160-9-4.8 mcg/actuation HFA aerosol inhaler Active 2 INH INHALATION Twice daily 5.9 30 August 25, 2023 8:28amStart: 01-24-1590Olenqwgysx-Glycopyr-Formoterol (Breztri Aerosphere) 160-9-4.8 mcg/actuation HFA aerosol inhaler Active 2 INH INHALATION Twice daily 5.9 30 August 25, 2023 9:28amFluticasone 500 McG- Salmeterol 50 McG/Dose Blistr Powdr For Inhalation (3 sources)Corticosteroid, beta2-Adrenergic Agonistfluticasone-salmeterol (ADVAIR DISKUS) 500-50 mcg/dose diskus inhaler Inhale 1 puff 2 (two) times aday. Ywolyn42 actuat formoterol fumarate 0.005 mg/actuat / mometasone furoate 0.2 mg/actuat metered dose inhaler (17 sources)Corticosteroid, beta2-Adrenergic AgonistStart: 43-21-2824shqq 2 puff(s) by inhalation twice dailymometasone-formoterol (Dulera) 200-5 mcg/actuation HFAA Inhale 2 (two) puffs (400 mcg total) 2 (two) times a day Rinse and spit after use . 1 Inhaler 11 10/21/2019 ActiveStart: 11-27-2017 End: 42-49-6230vaoa 2 puff(s) by inhalation twice dailyDULERA 200-5 mcg/actuation HFAA Inhale 2 (two) puffs (400 mcg total) 2 (two) times a day . 1 Inhaler 11 06/04/2018 ActiveStart: 71-10-5967NSUXPI 200-5 mcg/actuation HFAA furosemide 40 mg oral tablet (18 sources)Loop DiureticStart: 34-06-0312aoxgcwhvjj (LASIX) 40 MG tablet TAKE 1 (ONE) TABLET DAILY NEEDED FOR SWELLING 0 02/10/2020 ActiveStart: 04-15-2014 End: 75-80-2787sggn 1 tablet by mouth once dailyfurosemide (LASIX) 40 MG tablet Take 40 mg by mouth daily . 0 04/15/2014 10/10/2019 Hytndhdwcnum64 hr guaiFENesin 1200 mg extended release oral tablet (3 sources)Start: 93-50-0918bkfg 1 tablet by mouth once daily at [...] dose nasal spray (20 sources)AnticholinergicStart: 09-27-2024 End: 24-28-3500adcl 2 spray(s) nasal route twice dailyIpratropium [place] 21 mcg (0.03 %) spray,non-aerosol Active 0 .ROUTE .COMPLEX 30 December 17, 2024 6:26am Chronic obstructive pulmonary disease Chronic obstructive pulmonary disease, unspecified USE 2 SPRAYS IN EACH NOSTRIL TWICE A DAY Complies with drug therapyStart: 03-30-2024 End: 28-76-8961wsuk 1 spray(s) nasal route twice dailyIpratropium [place] 21 mcg (0.03 %) spray,non-aerosol Discontinued 2 SPRAY INTRANASAL Twice daily 30 3 June 28, 2024 6:53am September 27, 2024 7:06am Chronic obstructive pulmonary disease Chronic obstructive pulmonary disease, unspecified administer into each nostril Start: 11-04-2023 End: 25-48-7363cwro 1 mL by inhalation every six hours as needed for wheezing Ipratropium [place] 0.02 % solution Discontinued 3 ML INHALATION Every 6 hours as needed for shortness of breath or wheezing 150 2 November 04, 2023 10:35am November 11, 2023 3:41pm Chronic obstructive pulmonary disease Chronic obstructive pulmonary disease, unspecifiedStart: 11-04-2023 End: 58-28-2885faux 1 mL by inhalation every six hoursIpratropium [place] Discontinued 3 ML INHALATION Every 6 hours 150 November 04, 2023 11:35am Sept emb2023 4:41pmStart: 08-18-2023 End: 48-14-9430Yzpdgrnikqy [place] 21 mcg (0.03 %) spray,non-aerosol Discontinued 2 SPRAY INTRANASAL Three times daily as needed August 17, 2023 11:00pm August 25, 2023 6:58amStart: 06-92-7076hfzr 2 spray(s) nasal route three times dailyipratropium (ATROVENT) 21 mcg (0.03 %) nasal spray Instill 2 (two) sprays into each nostril 3 (three) times a day Follow-up needed. Please call office to schedule. . 30 mL 3 12/11/2020 ActiveStart: 47-30-1594pnfv 2 puff(s) by inhalation twice dailyAtrovent HFA 17 mcg/actuation inhaler INHALE 2 (TWO) PUFFS 2 (TWO) TIMES A DAY . 12.9 Inhaler 3 03/13/2020 ActiveStart: 02-16-2020 End: 94-65-1577fncl 2 spray(s) nasal route three times dailyipratropium (ATROVENT) 0.03 % nasal spray Instill 2 (two) sprays into each nostril 3 (three) times a day . 30 mL 11 02/16/2020 02/15/2021 ActiveStart: 73-21-4968yonb 2 puff(s) by inhalation twice dailyipratropium (ATROVENT HFA) 17 mcg/actuation inhaler Inhale 2 (two) puffs 2 (two) times a day . 1 Inhaler 3 12/01/2019 Active isopropyl alcohol 0.7 ml/ml medicated pad (19 sources)Start: 02-12-2024 End: 15-31-9683Eehkhfg Swabs (Bd Alcohol Swabs) pads, medicated Active 0 TOPICAL .BID 100 3 December 14, 2024 6:28am Type 2 diabetes mellitus Type 2 diabetes mellitus without complications pad topically BID; Complies with drug therapy Start: 60-75-9617Zgxcoha Prep Pads PadM USE 1 PAD DAILY 0 12/19/2019 Active3 ml liraglutide 6 mg/ml pen injector (20 sources)GLP-1 Receptor AgonistStart: 06-28-2024 End: 12-46-1069Bukadfwjhly (Victoza 2-Acosta) 0.6 mg/0.1 mL (18 mg/3 mL) pen injector Active 1.8 MG SUBCUT Daily 90 2 December 02, 2024 8:21am Type 2 diabetes mellitus Type 2 diabetes mellitus without complicationsComplies with drug therapyStart: 03-30-2024 End: 27-22-2080Bidfdbrgtul (Victoza 2-Acosta) 0.6 mg/0.1 mL (18 mg/3 mL) pen injector Discontinued 1.2 MG SUBCUT Daily 2 March 30, 2024 8:45am June 28, 2024 7:41am Type 2 diabetes mellitus Type 2 diabetes mellitus without complicationsStart: 11-25-2023 End: 49-74-4514Zgzftnntrol (Victoza 2-Acosta) 0.6 mg/0.1 mL (18 mg/3 mL) pen injector Discontinued 0 SUBCUT .COMPLEX 6 0 December 26, 2023 8:20am January 08, 2024 1:32pm inject 0.6mg subcutaneously once dailyStart: 06-18-2225KUHJLIS 2-ACOSTA 0.6 mg/0.1 mL (18 mg/3 mL) Pen Inject 1.2 mg under the skin daily . 0 03/22/2017 ActiveStart: 43-16-2907CFUVPWI 2-ACOSTA 0.6 mg/0.1 mL (18 mg/3 mL) Pen metFORMIN hydrochloride 1000 mg oral tablet (20 sources)BiguanideStart: 05-17-2024 End: 51-26-3718gzul 1 tablet by mouth twice dailyMetformin 1,000 mg tablet Active 0 .ROUTE .COMPLEX 180 November 04, 2024 6:30am Type 2 diabetes mellitus Type 2 diabetes mellitus without complications TAKE 1 TABLET BY MOUTH TWICE A DAY Complies with drug therapyStart: 08-18-2023 End: 76-23-6674jekm 1 tablet by mouth twice dailyMetformin 1,000 mg tablet Discontinued 1000 MG PO Twice daily 90 1 January 16, 2024 9:14am 2024 6:56am Type 2 diabetes mellitus Type 2 diabetes mellitus without complicationsStart: 73-93-6767wpna 1 tablet by mouth twice daily at mealtime metFORMIN (GLUCOPHAGE) 1000 MG tablet Take 1,000 mg by mouth 2 (two) times a day with meals . 0 08/16/2016 ActivemethylPREDNISolone 4 mg oral tablet (2 sources)CorticosteroidStart: 08-03-2021 End: 10-89-4551Ajlonz 4 mg Tab = 1 packet(s), Oral, As Directed, as directed on package labeling, X 6 day(s), # 21tab(s), Refills(s) 0, Pharmacy: [facility]/pharmacy #[id number], 178, cm, 08/03/21 10:30:00 EDT, Height/Length Dosing, 175, kg, 08/03/21 10:30:00 EDT, Weight Dosing Start Date: 08/03/21 Stop Date: 08/09/21 Status: O rderedStart: 10-09-2019 End: 85-33-2136suoxzpCGCZCLEjfusy sod suc(PF) (SOLU-medrol) Injection 125 mg penicillin v potassium 500 mg oral tablet (1 source)Start: 06-15-2018 End: 36-20-1192dqxg 1 tablet by mouth four times dailypenicillin v potassium (VEETID) 500 MG tablet Take 1 (one) tablet (500 mg total) by mouth 4 (four) t imes a day for 7 days . 28 tablet 0 06/15/2018 06/22/2018 Active microencapsulated potassium chloride 20 meq extended release oral tablet (20 sources)Start: 08-18-2023 End: 88-77-3367Znijwafzt Chloride (Klor-Con M20) 20 mEq tablet,ER particles/crystals Active 20 MEQ PO Daily 90 January 03, 2025 8:49am Complies with drug therapyStart: 04-15-2014 End: 22-30-1524hcgc 1 tablet by mouth once daily, then take 1 tablet by mouth potassium chloride SA (K-DUR,KLOR-CON) 20 MEQ tablet Take 20 mEq by mouth daily . 0 04/15/2014 10/10/2019 DiscontinuedTUDORZA PRESSAIR 400 mcg/actuation AePB (1 source)Start: 31-56-2476pnbb 1 dose by mouth every twelve hoursTUDORZA PRESSAIR 400 mcg/actuation AePB INHALE ONE DOSE BY MOUTH EVERY 12 HOURS 1 each 08/09/2016 Active Completed/Discontinued Medications MedicationDrug Class(es)DatesSig (Normalized)Sig (Original)albuterol 0.833 mg/ml / ipratropium bromide 0.167 mg/ml inhalation solution (20 sources)Anticholinergic, beta2-Adrenergic AgonistStart: 11-11-2023 End: 10-49-7572Irqrfmkwnce-Albuterol 0.5 mg-3 mg(2.5 mg base)/3 mL solution for nebulization Discontinued 3 ML INHALATION every 6 to 8 hours as needed for shortness of breath or wheezing 180 90 1 November 25, 2023 7:44am January 16, 2024 9:16am Chronic obstructive pulmonary disease Chronic obstructive pulmonary disease, unspecifiedStart: 08-25-2023 End: 65-58-3730yhdi 1 mL by inhalation every four to six hours as needed for wheezingIpratropium-Albuterol 0.5 mg-3 mg(2.5 mg base)/3 mL solution for nebulization Discontinued 3 ML INHALATION EVERY 4-6 HOURS as needed for shortness of breath or wheezing 90 30 2 November 04, 2023 10:21am November 04, 2023 10:35amStart: 08-03-2021 End: 01-13-0165zhyp 3 mL by inhalation four times dailyalbuterol-ipratropium Inh Jamilah 3 mL UD 3 mL, Inhalation, QID for 30 day(s), 360 mL, Refill(s) 5, [facility]/ pharmacy #[id number], 178, cm, 08/03/21 10:30:00 EDT, Height/Length Dosing, 175, kg, 08/03/21 10:30:00 EDT, Weight Dosing Start Date: 08/03/21 Stop Date: 01/30/22 Status: OrderedStart: 08-03-2021 End: 38-93-7434tgcc 3 mL by inhalation four times dailyalbuterol-ipratropium Inh Jamilah 3 mL UD 3 mL, Inhalation, QID for 30 day(s), 360 mL, Refill(s) 5, [facility]/ pharmacy #[id number], 178, cm, 08/03/21 10:30:00 EDT, Height/Length Dosing, 175, kg, 06/10/22 10:30:00 EDT, Weight Dosing Start Date: 08/03/21 Stop Date: 01/30/22 Status: OrderedStart: 90-29-5608kffb 3 mL by inhalation every six hours as needed for wheezingipratropium-albuteroL (DUO-NEB) 0.5-2.5 mg/3 ml nebulizer Take 3 mL by nebulization every 6 (six) hours as needed for wheezing Dx: J44.9 . 270 mL 11 02/16/2020 ActiveStart: 48-99-3501fkhvwmtndgp-albuteroL (DUO-NEB) 0.5- 2.5 mg/3 ml nebulizer solution 3 mLStart: 02-81-6391ymmp 3 mL by inhalation every six hours as neededipratropium-albuteroL (DUO-NEB) 0.5-2.5 mg/3 ml nebulizer Take 3 mL by nebulization every 6 (six) hours as needed for wheezing Dx: J44.9 . 150 mL 6 06/17/2019 Activeamoxicillin 875 mg / clavulanate 125 mg oral tablet (5 sources)Penicillin-class AntibacterialStart: 04-28-2024 End: 71-05-0177flui 1 tablet by mouth twice dailyAmoxicillin-Pot Clavulanate 875-125 mg tablet Discontinued 1 TAB PO Twice daily 20 10 0 April 28, 2024 12:00am June 28, 2024 7:30am Dental abscess Periapical abscess without sinus aspirin 81 mg chewable tablet (1 source)Platelet Aggregation Inhibitor, Nonsteroidal Anti-inflammatory Drug Start: 10-09-2019 End: 81-40-3211cumckaf chewable tablet 324 mgStart: 10-09-2019 End: 10-23-6809nameueu chewable tablet 324 mgatorvastatin 20 mg oral tablet (20 sources)HMG-CoA Reductase InhibitorStart: 08-18-2023 End: 30-52-7339qnae 1 tablet by mouth once dailyAtorvastatin 20 mg tablet Discontinued 20 MG PO Daily 90 June 28, 2024 7:41am December 02, 2024 8:22am Hyperlipidemia Hyperlipidemia, unspecifiedStart: 89-14-2455kqvveqrunukf (LIPITOR) 20 MG tabletbetamethasone 0.5 mg/ml / clotrimazole 10 mg/ml topical cream (5 sources)Azole Antifungal, CorticosteroidStart: 08-21-2018 End: 91-39-2656qeuhmzhyzoyo-betamethasone (LOTRISONE) cream Apply to jamie rectal area three times a day for four weeks 0 08/21/2018 10/10/2019 Bkcrmvqrmjye89 actuat budesonide 0.16 mg/actuat / formoterol fumarate 0.0045 mg/actuat metered dose inhaler (2 sources)Corticosteroid, beta2-Adrenergic AgonistStart: 03-01-2019 End: 95-20-5189shuj 2 puff(s) by inhalation twice dailybudesonide-formoterol (Symbicort) 160-4.5 mcg/actuation inhaler Inhale 2 (two) puffs 2 (two) times a day . 1 Inhaler 11 03/01/2019 02/29/2020 Nxqlaxiau14 hr buPROPion hydrochloride 150 mg extended release oral tablet (14 sources)AminoketoneStart: 12-22-2017 End: 86-07-7945uzwd 1 tablet by mouth twice dailybuPROPion (WELLBUTRIN SR) 150 MG 12 hr tablet TAKE ONE TABLET BY MOUTH TWICE A DAY 60 tablet 10 12/22/2017 06/15/2018 DiscontinuedStart: 11-25-2016 End: 07-35-3581obql 1 tablet by mouth every twelve hoursbuPROPion (WELLBUTRIN SR) 150 MG 12 hr tablet Take 150 mg by mouth. 0 11/25/2016 10/10/2019 Disconti nuedStart: 11-25-2016 End: 07-42-8028hnau 1 tablet by mouth twice dailybuPROPion (WELLBUTRIN SR) 150 MG 12 hr tablet Take 1 (one) tablet (150 mg total) by mouth 2 (two) times a day. 60 tablet 11 11/25/2016 11/25/2017 Activecephalexin 500 mg oral capsule (3 sources)Cephalosporin AntibacterialStart: 08-23-2024 End: 23-75-3641ftbj 1 capsule by mouth three times dailyCephalexin [...] mg oral tablet (9 sources)AnticholinergicStart: 08-18-2023 End: 28-30-9754leiz 1 tablet by mouth three times dailyDicyclomine 20 mg tablet Discontinued 20 MG PO Three times daily 60 30 0 August 17, 2023 11:00pm November 25, 2023 7:38am Gastritis Gastritis, unspecified, without bleedingdocusate sodium 50 mg / sennosides, half-way 8.6 mg oral tablet (10 sources)Start: 08-16-2016 End: 30-31-7474lxlxz-docusate (SENNA-S) 8.6-50 mg Take by mouth. 0 08/16/2016 10/10/2019 Discontinueddoxycycline monohydrate 100 mg oral tablet (6 sources)Tetracycline-class DrugStart: 02-10-2024 End: 43-32-9653nczc 1 tablet by mouth twice dailyDoxycycline Monohydrate 100 mg tablet Discontinued 100 MG PO Twice daily 20 10 0 February 10, 2024 12:00am March 30, 2024 8:46am0.5 ml dulaglutide 1.5 mg/ml auto-injector (9 sources)GLP-1 Receptor AgonistStart: 08-18-2023 End: 07-40-4003Cinefuqedmz (Trulicity) 0.75 mg/0.5 mL pen injector Discontinued 0.75 MG SUBCUT every week 2.5 30 0Jun2023 11:00pm November 25, 2023 7:38am Type 2 diabetes mellitus Type 2 diabetes mellitus without complications fluticasone propionate 0.05 mg/actuat metered dose nasal spray (20 sources)CorticosteroidStart: 08-18-2023 End: 03-23-9027Dqyxfrython Propionate 50 mcg/actuation spray,suspension Discontinued 2 SPRAY INTRANASAL Daily 16 5Nov2023 9:13am March 30, 2024 8:46amStart: 06-04-2018 End: 70-44-9816nyje 2 spray(s) nasal route once dailyfluticasone propionate (FLONASE) 50 mcg/actuation nasal spray Instill 2 (two) sprays into each nostril daily . 16 g 12 06/04/2018 ActiveglipiZIDE 10 mg oral tablet (20 sources)SulfonylureaStart: 08-18-2023 End: 10-18-3818jzks 1 tablet by mouth twice dailyGlipizide 10 [...] mg/ml topical cream (20 sources)Start: 03-30-2024 End: 93-65-7743Gndxwchg Lactate 12 % cream Discontinued 1 APPLIC TOPICAL Twice daily as needed for dry skin 385 July 12, 2024 6:42am August 17, 2024 9:40am Chronic venous insufficiency Venous insufficiency (chronic) (peripheral)Start: 48-11-5164qmxqhaju lactate (LAC-HYDRIN) 12 % lotionlisinopril 5 mg oral tablet (20 sources)Angiotensin Converting Enzyme InhibitorStart: 08-18-2023 End: 51-67-5508civc 1 tablet by mouth once dailyLisinopril 5 mg tablet Discontinued 5 MG PO Daily 90 June 28, 2024 7:41am December 02, 2024 8:22am Hypertension Essential (primary) hypertensiontake 1 tablet by mouth once daily lisinopriL (PRINIVIL,ZESTRIL) 2.5 MG tablet Take 2.5 mg by mouth daily . 0 Activemontelukast 10 mg oral tablet (20 sources)Leukotriene Receptor AntagonistStart: 08-18-2023 End: 37-20-6544ahtz 1 tablet by mouth once dailyMontelukast 10 mg tablet Discontinued 10 MG PO Daily 90 June 22, 2024 6:55am December 0258:22am Chronic obstructive pulmonary disease Chronic obstructive pulmonary disease, unspecifiedStart: 11-27-2017 End: 29-12-7095isjg 1 tablet by mouth once dailymontelukast (SINGULAIR) 10 mg tablet Take 1 (one) tablet (10 mg total) by mouth nightly . 30 ryiwsa21 06/04/2018 Activetake 1 tablet by mouth oncemontelukast (SINGULAIR) 10 mg tablet Take 10 mg by mouth nightly. Activeomeprazole 40 mg delayed release oral capsule (20 sources)Proton Pump InhibitorStart: 08-18-2023 End: 70-15-9778vufm 1 capsule by mouth once dailyOmeprazole 40 mg capsule,delayed release(DR/EC) Discontinued 40 MG PO Daily 90 June 28, 2024 7:41am December 02, 2024 8:22am Gastroesophageal reflux disease Gastro- esophageal reflux disease withoutesophagitisStart: 21-16-0035azsb 1 capsule by mouth once dailyomeprazole (PRILOSEC) 40 MG capsule Take 40 mg by mouth daily . 0 01/21/2018 Activetake 1 capsule by mouth once dailyomeprazole (PRILOSEC) 20 MG capsule Take 20 mg by mouth daily. ActivePotassium Chloride (Klor-Con M20) 20 mEq tablet,ER particles/crystals (6 sources)Start: 08-18-2023 End: 17-56-2974Rnoskpzfa Chloride (Klor-Con M20) 20 mEq tablet,ER particles/crystals Discontinued 20 MEQ PO Daily August 18, 2023 12:00am January 16, 2024 10:16amStart: 08-18-2023 End: 71-01-9657Hpjjfjkom Chloride (Klor-Con M20) 20 mEq tablet,ER particles/crystals Discontinued 20 MEQ PO Daily August 17, 2023 11:00pm January 16, 2024 9:16amStart: 94-89-5076Wuxsgkghm Chloride (Klor-Con M20) 20 mEq tablet,ER particles/crystals Active 20 MEQ PO Daily August 18, 2023 12:00am predniSONE 10 mg oral tablet (20 sources)Start: 11-25-2023 End: 01-28-2579pvep 0.5 tablet by mouth once dailyPrednisone 10 mg tablet Discontinued 10 MG PO daily 21 December 26, 2023 8:20am February 10, 2024 11:17am Take 40 mg for 2 days, 30 mg for 2 days, 20 mg for 2 days, 10 mg for 2 days, 1/2 tablet for 2 daysStart: 08-18-2023 End: 48-53-8562Fxwcxvylnl 10 mg tablet Discontinued 10 MG PO As Directed August 17, 2023 11:00pm August 18, 2023 7:53am see taper instructionsStart: 05-30-2020 End: 02-15-8091culbavETJL (DELTASONE) 20 MG tablet Indications: Chronic obstructive pulmonary disease with acute exacerbation (HCC) TAKE 2 TABLETS BY MOUTH FOR 4 DAYS THEN 1 TABLET FOR 4 DAYS . 12 tablet 0 11/21/2020 ActiveStart: 51-10-1028ozoswyCFHL (DELTASONE) 10 MG tablet Take 2 pills daily for 5 days, then take 1 pill daily for 5 days, and then stop. . 15 tablet 0 11/24/2019 ActiveStart: 03-15-1978lgfk 4 tablets by mouth once daily, then take 2 tablets by mouth once daily, then take 1 tablet by mouth once dailypredniSONE (DELTASONE) 10 MG tablet Take 4 tabs PO daily x 3 days, then 2 tabs PO daily x 3 days, then 1 tab PO daily x 3 days . 21 tablet 0 10/10/2019 ActiveStart: 10-10-2019 End: 70-58-9576yxev 2 tablets by mouth once dailypredniSONE (DELTASONE) 20 MG tablet Take 2 (two) tablets (40 mg total) by mouth daily for 5 days Start: 10/10/19. 10 tablet 0 10/10/2019 10/10/2019 DiscontinuedSemaglutide (9 sources)Start: 08-18-2023 End: 44-97-8946garxls 1 mg by subcutaneous injection every weekSemaglutide (Ozempic) 1 mg/dose (4 mg/3 mL) pen injector Discontinued 1 MG SUBCUT every week August 17, 2023 11:00pm August 18, 2023 7:50amStart: 08-18-2023 End: 75-04-6902disgvn 1 mg by subcutaneous injection every weekSemaglutide (Ozempic) 1 mg/dose (4 mg/3 mL) pen injector Discontinued 1 MG SUBCUT every week August 18, 2023 12:00am August 18, 2023 8:50amSodium Chloride (1 source)Start: 10-09-2019 End: 32-39-2385dsidjr chloride (PF) (NS) flush 5 mLtiZANidine 2 mg oral tablet (6 sources)Central alpha-2 Adrenergic AgonistStart: 02-10-2024 End: 71-21-3615djnx 1 tablet by mouth every eight hours as neededTizanidine 2 mg tablet Discontinued 2 MG PO Every 8 hours as needed for muscle spasticity 30 February 10, 2024 12:00am August 23, 2024 2:25pm Low back pain Muscle spasm Low back pain, unspecified Other muscle spasmtriamcinolone acetonide 1 mg/ml topical cream (3 sources)CorticosteroidStart: 02-12-2020 End: 60-60-8785hhqfyvkeqabcz (KENALOG) 0.1 % creamumeclidinium (2 sources)AnticholinergicStart: 77-08-4584vyto 1 puff(s) by inhalation once dailyumeclidinium (Incruse Ellipta) 62.5 mcg/actuation DsDv Inhale 1 puff daily . 1 each 03/01/2019 SuspendedStart: 53-84-4339gioa 1 puff(s) by inhalation once dailyumeclidinium (Incruse Ellipta) 62.5 mcg/actuation DsDv Inhale 1 puff daily . 1 each 03/01/2019 Activezolpidem tartrate 10 mg oral tablet (1 source)gamma-Aminobutyric Acid-ergic AgonistStart: 12-06-2024 End: 02-75-5825qtyp 1 tablet by mouth once daily at [...] [Acute exacerbation of chronic obstructive airways disease]Onset: 858342-24-6407VhvadxgPvgiklga mellitus with complications (4 sources)Diabetic foot ulcer; Translations: [Other specified diabetes mellitus with foot ulcer]07-83-2469HkwjaegZdctlgwq mellitus without complication (19 sources)Type 2 diabetes mellitus; Translations: [Type 2 diabetes mellitus without complications]63-54-9885NvglqiuDtispjhfs of lipid metabolism (16 sources)Hyperlipidemia; Translations: [Hyperlipidemia, unspecified] 18-54-0884VsgaamtIwvtccbbo of teeth and jaw (8 sources)Toothache; Translations: [Dental abscess]19-55-2608RtlktgjxIjqmuqxhe of teeth and jaw (2 sources)Other specified disorders of teeth and supporting structures; Translations: [Other specified disorders of teeth and supporting structures] Onset: 99-02-1771Oddnkvhzcb disorders (7 sources)Gastroesophageal reflux disease; Translations: [Gastro-esophageal reflux disease without esophagitis]37-09-3545FrxkahmCgcwdfgka hypertension (16 sources)Hypertensive disorder; Translations: [Essential (primary) hypertension]93-85-4983IatqpyxHhjdniweo and duodenitis (8 sources)Gastritis; Translations: [Gastritis, unspecified, without bleeding] 76-08-2637LzhlxmrdBttbaqibiyl chest pain (1 source)Chest pain; Translations: [Chest pain, unspecified type]EpisodicOpen wounds of extremities (9 sources)Unspecified open wound, right lower leg, initial encounter; Translations: [Injury of right leg]Onset: 281320-97-6877QwiyopcrDffz wounds of extremities (4 sources)Injury of left leg; Translations: [Unspecified open wound, left lower leg, initial encounter]59-64-6612PbsjaazbXahps connective tissue disease (6 sources)Spasm; Translations: [Other muscle spasm]49-71-2581AbagrouqFjxhb connective tissue disease (3 sources)Foot pain; Translations: [Pain in right foot]86-04-2986CkjyiukqCnpgi connective tissue disease (2 sources)Other muscle spasm; Translations: [Spasm of muscle]59-60-5028Xjukpjuj Other connective tissue disease (3 sources)Pain in right foot; Translations: [Pain in right foot]12-26-2023 EpisodicOther diseases of veins and lymphatics (9 sources)Vascular insufficiency; Translations: [Venous insufficiency (chronic) (peripheral)]16-69-4790KrjwohsgSivvc diseases of veins and lymphatics (7 sources)Peripheral venous insufficiency; Translations: [Venous insufficiency (chronic) (peripheral)]88-33-3253RuegjyetSyuzi diseases of veins and lymphatics (5 sources)Venous insufficiency (chronic) (peripheral); Translations: [Venous (peripheral) insufficiency, unspecified]03-55-9205UptpdbeuMnqrx screening for suspected conditions (not mental disorders or infectious disease) (18 sources)Patient encounter status; Translations: [Encounter for screening for malignant neoplasm of prostate]83-35-7883AoinpfzgKtlgn upper respiratory disease (2 sources)Allergic rhinitis; Translations: [Allergic rhinitis, unspecified] 08-18-2474MtaofgmTphvgftp codes; unclassified (10 sources)Sleep apnea; Translations: [Sleep apnea, unspecified]08-18-2023 ChronicResidual codes; unclassified (4 sources)Sleep apnea, unspecified; Translations: [Unspecified sleep apnea] 98-31-6279ZtgdopyLnrinsook or history of mental health and substance abuse (16 sources)Tobacco user; Translations: [Tobacco abuse disorder]Onset: 812627-78-9669NsgotkuKiao and subcutaneous tissue infections (12 sources)Cellulitis of lower limb; Translations: [Cellulitis of unspecified part of limb]36-67-5219LlawnkkfAblgxkvalsr; intervertebral disc disorders; other back problems (8 sources)Low back pain; Translations: [Low back pain]30-44-2855Plmkdrxf Substance-related disorders (20 sources)Cigarette smoker ; Translations: [Nicotine dependence, cigarettes, uncomplicated]Onset: 929641-92-4400BmycjyrSgksirglkvzp (20 sources)Obstructive sleep apnea syndrome; Translations: [Obstructive sleep apnea (adult) (pediatric)]Onset: 041214-45-4910IkgjazvFnstgtmoyzmu (1 source)ERRONEOUS ENCOUNTER--DISREGARD Past or Other Problems Problem ClassificationProblemDateDocumented DateEpisodic/ChronicOther lower respiratory disease (17 sources)Paroxysmal nocturnal dyspnea; Translations: [Dyspnea, unspecified] Onset: 264774-32-3014IhwerxwjIkjylpka codes; unclassified (6 sources)Tobacco user; Translations: [Tobacco use]Onset: 97-37-9168Cjyenvwe Residual codes; unclassified (1 source)Bilateral lower limb edema; Translations: [Localized edema]Onset: 683449-48-2253MllwaxteExpopzmvu-qgzhfsc disorders (13 sources)Cigarette smoker ; Translations: [Cigarette Smoker]Onset: 04-01-2017 23-83-1008QymcdohwMfcjyyiuofxj (20 sources)Edema of lower extremity; Translations: [Cigarette smoker ]Onset: 31-24-758209196890-39-8667Mlwevtzm Results Test NameValueInterpretationReference KtffvLhffiprcMjX3i HPLC (Bld) [Mass fraction]Ordered By: Jazz Hyde on 09-12-9371NhK6c (Bld) [Mass fraction]7.2 %[facility] CenterHbA1c HPLC (Bld) [Mass fraction] on 20-53-3182TtX7x (Bld) [Mass fraction]6.7 %[facility] HbA1c HPLC (Bld) [Mass fraction]on 99-32-1069OjZ7h (Bld) [Mass fraction] Hemoglobin A1c/Hemoglobin.total in Blood by HPLCRegency Hospital Cleveland WestAerobic Cultureon 38-49-7293Wkflfqh CultureRight lower leg wound Result Tab Codes Light Normal Skin Breana 2 Days Right lower leg wound No Anaerobes Isolated 3 Days Right lower leg wound Gram Stain Result 1+ White Blood Cells No Bacteria Seen PERFORMED BY: [place] [address] PATHOLOGIST MANUFACTURING TECHNICIAN GAIL KAUFMAN M.D.NormalThe Critical Access Hospital Physician GroupComment on above: Performed By: #### AERC, GS #### [place] [address] USAAerobic cultureOrdered By: Jazz Hyde on 47-31-6937Ttbhqcov identified Aer cx Nom (Unsp spec)Aerobic cultureSt. Mary'S Medical CenterBacteria identified Aer cx Nom (Unsp spec)Aerobic culture [facility] CenterAnaerobic cultureOrdered By: Jazz Hyde on 39-50-8732Ofcgllcb identified Anaer cx Nom (Unsp spec)Anaerobic cultureSt. Mary'S Medical CenterBacteria identified Anaer cx Nom (Unsp spec)Anaerobic cultureSt. Mary'S Medical CenterGram Stainon 02-10-2024 Microscopic observation Gram stain Nom (Unsp spec)Right lower leg wound Gram Stain Result 1+ White Blood Cells No Bacteria Seen PERFORMED BY: [address] [address] PATHOLOGIST MANUFACTURING TECHNICIAN GAIL KAUFMAN M.D.NormalThe Critical Access Hospital Physician GroupComment on above: Performed By: #### AERC, #### [facility] [address] [place] [address] USAGram stain microscopyOrdered By: Jazz Hyde on 73-10-7888Otjeoptoeex observation Gram stain Nom (Unsp spec)Gram stain microscopySt. Mary'S Medical CenterMicroscopic observation Gram stain Nom (Unsp spec)Gram stain microscopySt. Mary'S Medical CenterHbA1c HPLC (Bld) [Mass fraction]on 25-87-9734AnO7u (Bld) [Mass fraction]8.4 %[facility] CenterPhysician Orderon 33-65-5740Cyrtitbzt Order [id number]#1.00TIFUniversity Hospitals Lake West Medical CenterConsent for Treatmenton 03-49-0063Otjtwme for Treatment [id number]#1.00TIFUniversity Hospitals Lake West Medical CenterPhysician Orderon 76-95-5737Qdvhelipk Order [id number]#1.00[facility] [place]onXR Chest 2 Viewson 71-48-1710JU Chest 2 ViewsExam Date/Time: 12/23/2022 11:45 EDT [...] Ka,r in mGy = . DAP = .[facility]edoConsent for Treatmenton 08-16-2022 Consent for [id number]#1.00CD:127Nocira [facility] CenterPhysician Orderon 63-72-8408Ijthdlvst Order [id number]#1.00CD:127NoMercy Health – The Jewish HospitalXR Chest 2 Viewson 02-52-1033GJ Chest 2 ViewsExam Date/Time: 08/16/2022 10:45 EDT [...] Ka,r in mGy = na DAP = naNormalDayton Va Medical CenterCoding Summary.on 66-25-4313Hwzyvo Summary. CD:140603Ukdc27WIs6rBh+PGhlYWQ+ZJ7JZWHyP05ihKNwvN5sG6TXVIsTOglbFURLNTnXGjMzhvNaA F0lkDJlVELw [file] ZQYiK03z (more content not included)...[facility]edoConsent for Treatmenton 56-60-6974Iwtzald for Treatment [id number]#1.00CD:127NoMercy Health – The Jewish HospitalPhysician Orderon 80-02-6863Jlmuzmkfs Order [id number]#1.00CD:127NoMercy Health – The Jewish HospitalXR Chest 2 Viewson 45-32-9910IY Chest 2 ViewsExam Date/Time: 05/22/2022 09:39 EDT [...] Ka,r in mGy = na DAP = naNorJ.W. Ruby Memorial HospitalCoding Summary.on 11-72-3233Sduzum Summary. CD:837206LO:4667884HVs9yKq+PGhlYWQ+WT1VQKDlA79nuGKkqN9wY5HEVFfCGqbeZUKXTStSBdAte oDaPX6llBThCIUq [file] ZXIt (more content not included)...NormalDayton Va Medical CenterConsent for Treatmenton 69-37-9231Tcvynhv for Treatment [id number]#1.00CD:127NormalDayton Va Medical CenterPhysician Orderon 91-18-3687Atkvwrchw Order [id number]#1.00CD:127[facility]edoXR Chest 2 Viewson 46-68-1523PB Chest 2 ViewsExam Date/Time: 05/06/2022 10:47 EDT [...] Ka,r in mGy = na DAP = naNorJ.W. Ruby Memorial HospitalPOC COVID-19, MOLECULARon 10-10-2019 SARS-COV-2 (PERES ID)Not DetectedNormalNorth Country HospitalComment on above:Result Comment: This test was [...] at the following links: For Healthcare Providers: https://www.fda.gov/media/300137/download For Patients: https://www.fda.gov/media/261646/downloadPerformed By: #### [id number] #### OED FSED POCT LAB [address] [place] [address] Rao Pérez, Ph.d. [id number] Troponin Ion 48-18-2386Eztpglnqypipgd and review of laboratory resultsNormalOhioHealthTroponin I.cardiac [Mass/Vol]ng/mL<0.05 ng/mLOhioHealthXR CHEST PA/APon 81-49-3413MK CHEST PA/APEXAMINATION: ONE X-RAY VIEW OF THE [...] are clear. IMPRESSION: No acute cardiopulmonary disease. [employer] Workstation ID: [id number] Dictated by: CHACORTA ROCHA on Sat Oct 09, 2019 11:08:51 PM EDT Transcribed by: WILLIAMS THOMSAON on Sat Oct 09, 2019 11:24:16 PM EDT Finalized by: CHACORTA ROCHA on Mon 2019 6:06:07 AM [facility] GordonComment on above:Order Comment: Injury/Trauma or Illness?:Illness/Other How long have you had these symptoms (acute/chronic)?:Acute Reason for exam?:sob, cough History of cancer?: Surgeries, chemotherapy, or radiation?: Type of Exam?:Initial Additional signs and symptoms?:ECG 12-LEADon 76-79-4205MufahmrMyah Valle MD 10/09/2019 11:34 PM EKG 12-lead Date/Time: 10/09/2019 11:34 PM Performed by: Myah Valle MD Authorized by: Myah Valle MD Interpreted by ED attending physician Comparison: compared with previous ECG from 01/23/2018 Similar to previous ECGRhythm: sinus rhythm BPM: 85 Conduction: LAFB QRS axis: left T Inversion: aVL SD Interval: 168 QRS Interval: 88 QT Interval: 433 Clinical impression: non-specific ECGOhioHealthPOC CBC and Differentialon 59-22-9679Dcxlkdfxj (Bld) [#/Vol]0.06 10*3/uLOhioHealth Basophils/100 WBC (Bld)0.6 %OhioHealthEosinophils (Bld) [#/Vol]0.17 10*3/uL OhioHealthEosinophils/100 WBC (Bld)1.6 %[facility] Medical CenterErythrocyte distribution width (RBC) [Entitic vol]15.2 %High11.6 - [...] laboratory resultsAbnormalOhioHealthLymphocytes (Bld) [#/Vol]1.91 10*3/uLOhioHealthLymphocytes/100 WBC (Bld)18.2 %[facility] Medical CenterMCH (RBC) [Entitic mass]27.8 pg26 - 34 pgOhioHealthMCHC (RBC) [Mass/Vol]33.4 g/dL31 - 37 g/dLOhioHealthMCV (RBC) [Entitic vol]83.1 fL80 - 100 fLOhioHealthMonocytes (Bld) [#/Vol]0.65 10*3/uLOhioHealthMonocytes/100 WBC (Bld)6.2 %[facility] Neutrophils (Bld) [#/Vol]7.65 10*3/uLHighOhioHealthNeutrophils/100 WBC (Bld)72.7 %OhioHealthPlatelet mean volume (Bld) [Entitic vol]10.0 fL9.4 - 12.4 fL OhioHealthPlatelets (Bld) [#/Vol]166 10*3/uLOhioHealthRBC (Bld) [#/Vol]5.51 10*6/uLOhioHealthWBC (Bld) [#/Vol]10.51 10*3/uLOhioHealthPOC Covid-19, Molecular on 69-02-5883Ovkutfgqxkyowq and review of laboratory resultsNormalOhioHealth EKBZ-HsG-9Cua DetectedNot DetectedOhioHealthComment on above:This test was performed [...] at the following links: For Healthcare Providers: https://www.fda.gov/media/804068/download For Patients: https://www.fda.gov/media/274189/download POC Troponin Ion 69-83-3804Ktapdivxzxctuk and review of laboratory resultsNormal OhioHealthTroponin I.cardiac [Mass/Vol]ng/mL<0.05 ng/mLOhioHealthPOC Venous Blood Gases with Full Panelon 63-36-9209Ardc excess Calc (BldV) [Moles/Vol]0.9 mmol/LOhioHealthCalcium.ionized [Mass/Vol]4.1 mg/dLLow4.5 [...] M.predicted MDRD (S/P/Bld) [Vol rate/Area]103 mL/min/{1.73_m2}>=60 mL/min/1.73 s6TnpvKgerwjFrpmgde [Mass/Vol]202 mg/tTQxpv30 - 99 mg/dLOhioHealthHCO3 (Bld) [Moles/Vol]26.7 mmol/L24 - 28 mmol/LOhioHealth Hematocrit (Bld) [Volume fraction]46 %41 - 53 %[facility] CenterHemoglobin (Bld) [Mass/Vol]15.5 g/dL13.5 - 17.5 g/dLOhioHealthInterpretation and review of laboratory resultsAbnormalOhioHealthLactate [Moles/Vol]1.6 mmol/L0.6 - 2 mmol/L [facility] CenterOxygen (BldV) [Partial pressure]39 mm[Hg][facility] CenterOxygen saturation in Venous blood71.7 %High40 - 70 %[facility] Medical CenterpH (BldV)7.37 [pH][facility] Potassium [Moles/Vol]4.1 mmol/L3.5 - 5.1 mmol/LOhioHealthSodium [Moles/Vol]137 mmol/L135 - 145 mmol/LOhioHealthUrea nitrogen [Mass/Vol]8 mg/dL8 - 25 mg/dL OhioSelect Medical Specialty Hospital - AkronComplete PFTon 43-85-9112KL Adj Pre19.5 mL/mmHg/minInvalid Interpretation Code1 - 2CAREFUSION PFT LABDLCO %Pre Gafcmjzeh39 %Invalid Interpretation Code0 - 300 %[facility]ARE[facility] PFT LABDLCO Pre19.5 mL/mmHg/minInvalid Interpretation CodeCAREFUSION PFT LABDLCO Mlzlnynbh68 mL/mmHg/minInvalid Interpretation Code0.05 - 99.99CAREF[facility]ION PFT LABDLCO/VA %Pre Qeolkmtgv466 % Invalid Interpretation CodeCAREFUSION PFT LABDLCO/VA Pre4.57 mL/mHg/min/LInvalid Interpretation CodeCAREFUSION PFT LABDLCO/VA Predicted4.18 mL/mHg/min/LInvalid Interpretation CodeCAREFUSION PFT LABERV Pre0.39 LitersInvalid Interpretation Code0.05 - 9.99C[facility] PFT LABFEV1 %Change1 %Invalid Interpretation Code0 - 300 %[facility] PFT LABFEV1 %Post Diypqkqka67 %Invalid Interpretation Code0 - 300 %[facility] PFT LABFEV1 %Pre Mhszzrhco14 %Invalid Interpretation Code0 - 300 %CARE[facility] PFT LABFEV1 Post2.12 LitersInvalid Interpretation Code0 - 12 [facility] PFT LABFEV1 Pre2.1 LitersInvalid Interpretation Code0 - 12CAREFUSION PFT LABFEV1 Predicted4.13 LitersInvalid Interpretation Code0.05 - 9.99CAREFUSION PFT LABFEV1/FVC %Change-1 %Invalid Interpretation CodeCAREFUSION PFT LAB FEV1/FVC %Post Oiodazfvk85 %Invalid Interpretation CodeCAREFUSION PFT LAB FEV1/FVC %Pre Dcrcslaoj29 %Invalid Interpretation CodeCAREFUSION PFT LABFEV1/FVC Post70 %Invalid Interpretation Code0 - 12CAREFUSION PFT LABFEV1/FVC Pre71 % Invalid Interpretation Code0 - 12CAREFUSION PFT LABFEV1/FVC Avmgsawxk01 %Invalid Interpretation Code1 - 99 %[facility]AREF[facility] PFT LABFRC N2 %Pre Cqgcehjjh80 %Invalid Interpretation Code0 - 300 %CAREF[facility] PFT LABFRC N2 Pre2.46 LitersInvalid Interpretation Code0.05 - 9.99CAREF[facility] PFT LABFRC N2 Predicted2.61 Liters Invalid Interpretation Code0.05 - 9.99CAREF[facility] PFT LABFRC PL Predicted2.61 LitersInvalid Interpretation Code0.05 - 9.99CAREF[facility] PFT LABFVC %Change2 % Invalid Interpretation Code0 - 300 %[facility] PFT LABFVC %Post Xlgetrygr54 % Invalid Interpretation Code0 - 300 %[facility]ARE[facility] PFT LABFVC %Pre Qsbmguyua79 % Invalid Interpretation Code0 - 300 %CAREF[facility] PFT LABFVC Post3.02 LitersInvalid Interpretation Code0 - 12CAREFUSION PFT LABFVC Pre2.96 LitersInvalid Interpretation Code0 - 12CAREFUSION PFT LABFVC Predicted5.28 LitersInvalid Interpretation Code0.05 - 9.99CAREFUSION PFT LABMVV %Pre Nxpyjhsjs61 %Invalid Interpretation Code0 - 300 %[facility] PFT LABMVV Pre88 L/minInvalid Interpretation Code0 - 300 L/minCAREFUSION PFT LABMVV Vucpdofqg206 L/minInvalid Interpretation Code0 - 300 L/minCAREFUSION PFT LABPE max Ilrypuxsj090 cmH2O Invalid Interpretation CodeCAREFUSION PFT LABPI max Kokubykdw437 hrC4SGdfvujj Interpretation CodeCAREFUSION PFT LABRV %Pre Yufnaoymf10 %Invalid Interpretation Code0 - 300 %CARE[facility] PFT LABRV Pre2 LitersInvalid Interpretation Code0.05 - 9.99CARE[facility] PFT LABRV Predicted2.22 LitersInvalid Interpretation Code0.05 - 9.99CAREF[facility] PFT LABTLC %Pre Clibjtazo26 %Invalid Interpretation Code0 - 300 % [facility]AREF[facility] PFT LABTLC Pre4.96 LitersInvalid Interpretation Code0.05 - 11.99 [facility]ARE[facility] PFT LABTLC Predicted7.09 LitersInvalid Interpretation Code0.05 - 11.99CAREFUSION PFT LABVC %Pre Vzuifimwe51 %Invalid Interpretation Code0 - 300 % CAREFUSION [...] PFT LAB Vital Signs Date TimeVital SignValuePerforming HodpbwtefYgoxusiw02-45-8374 08:24-0500Body ezrkmk933.8 cmJazz Hyde APRN Work Phone: [facility]11-10-2025 08:24-0500 Body mass index (BMI) [Ratio]52.3 kg/l6VrshvjvbJazz Hyde APRN Work Phone: [phone]11-10-2025 08:24-0500 Body .8 [degF]Jazz Hyde APRN Work Phone: [facility]11-10-2025 08:24-0500 Body tkonsl384.56 kgJazz Hyde APRN Work Phone: [phone]11-10-2025 08:24-0500 Diastolic blood legplopr70 mm[Hg]Jazz Hyde APRN Work Phone: [phone]11-10-2025 08:24-0500 Heart rate79 /minJazz Doyler RESEARCH AND DEVELOPMENT SCIENTIST Work Phone: [phone] [place], [place] 367[address]11-10-2025 08:24-0500 SaO2% (BldA) [Mass fraction]95 %Jazz Doyler RESEARCH AND DEVELOPMENT SCIENTIST Work Phone: [phone] [place], [place] 3678611-10-2025 08:24-0500 Systolic blood yvsbqtmu235 mm[Hg]Jazz Mary Ellen RESEARCH AND DEVELOPMENT SCIENTIST Work Phone: [phone] [place], [place] 3678610-09-2025 08:52-0400 Body oehhvj720.8 cmCyndimelony Hyde RESEARCH AND DEVELOPMENT SCIENTIST Work Phone: [phone] [place], [place] 3678610-09-2025 08:52-0400 Body mass index (BMI) [Ratio]52.2 kg/i5Ksbgnxtpbhavesh Kwonr RESEARCH AND DEVELOPMENT SCIENTIST Work Phone: [phone] [place], [place] 3678610-09-2025 08:52-0400 Body suenihuwxcm77.1 [degF]Jazz Mary Ellen RESEARCH AND DEVELOPMENT SCIENTIST Work Phone: [phone] [place], [place] 367[address]10-09-2025 08:52-0400 Body bwrtge770.1 kgJazz Mosesjuanacher RESEARCH AND DEVELOPMENT SCIENTIST Work Phone: [phone] [place], [place] 367[address]10-09-2025 08:52-0400 Diastolic blood evesywsf62 mm[Hg]Jazz Mary Ellen RESEARCH AND DEVELOPMENT SCIENTIST Work Phone: [phone] [place], [place] 3678610-09-2025 08:52-0400 Heart rate84 /minJazz Jermanacher RESEARCH AND DEVELOPMENT SCIENTIST Work Phone: [phone] [place], [place] 367[address]10-09-2025 08:52-0400 SaO2% (BldA) [Mass fraction]92 %Jazz Mary Ellen RESEARCH AND DEVELOPMENT SCIENTIST Work Phone: [phone] [place], [place] 3678610-09-2025 08:52-0400 Systolic blood mm[Hg]Jazz Rohrbacher RESEARCH AND DEVELOPMENT SCIENTIST Work Phone: [facility]06-30-2025 15:24-0400 Body uzdpsr001.8 cmJazz Hyde RESEARCH AND DEVELOPMENT SCIENTIST Work Phone: [phone]06-30-2025 15:24-0400 Body mass index (BMI) [Ratio]51.7 kg/i3DhrkhuyaJazz Stollacher RESEARCH AND DEVELOPMENT SCIENTIST Work Phone: [phone]06-30-2025 15:24-0400 Body igudme667.74 kgJazz Hyde RESEARCH AND DEVELOPMENT SCIENTIST Work Phone: [phone]06-30-2025 15:24-0400 Diastolic blood mm[Hg]Jazz Mosesjuarez RESEARCH AND DEVELOPMENT SCIENTIST Work Phone: [phone]35[facility]06-30-2025 15:24-0400 Heart rate81 /Gemma Kwonr RESEARCH AND DEVELOPMENT SCIENTIST Work Phone: [phone]51[facility]06-30-2025 15:24-0400 Respiratory rate12 /Gemma Kwonr RESEARCH AND DEVELOPMENT SCIENTIST Work Phone: [phone] [place], [place] 0105706-30-2025 15:24-0400 SaO2% (BldA) [Mass fraction]95 %Jazz Mosesjuarez RESEARCH AND DEVELOPMENT SCIENTIST Work Phone: [phone]85[facility]06-30-2025 15:24-0400 Systolic blood mm[Hg]Jazz Mosesjuarez RESEARCH AND DEVELOPMENT SCIENTIST Work Phone: [phone] [place], [place] 0105705-05-2025 08:27-0400 Body hybqmn424.8 cmSt. Mary'S Medical Center05-05-2025 08:27-0400Body mass index (BMI) [Ratio]52.6 kg/s3HinsyftwhSt. Mary'S Medical Center05-05-2025 08:27-0400Body enzmkpqmbef91.9 [degF][facility]05-05-2025 08:270400Body itfuna692.46 kgSt. Mary'S Medical Center05-05-2025 08:27-0400Diastolic blood yfposdcy05 mm[Hg][facility] 06-28-2024 08:27-0400Heart rate60 /[facility] 06-28-2024 08:27-7847BaU7% (BldA) [Mass fraction]94 %[facility]05-05-2025 08:27-0400Systolic blood cflcxsop308 mm[Hg][facility]03-05-2025 13:07-0500Body oivrie417.8 cmCyndimelony Aureliajuanacher RESEARCH AND DEVELOPMENT SCIENTIST Work Phone: [phone]03-05-2025 13:07-0500 Body mass index (BMI) [Ratio]52.2 kg/m4Kygpxcsg Rohjuanacher RESEARCH AND DEVELOPMENT SCIENTIST Work Phone: [phone]03-05-2025 13:07-0500 Body fgfdzfzaoja80.4 [degF]Jazz Hyde RESEARCH AND DEVELOPMENT SCIENTIST Work Phone: [phone]03-05-2025 13:07-0500 Body citjzj766.1 kgJazz Aureliarbacher RESEARCH AND DEVELOPMENT SCIENTIST Work Phone: [phone]03-05-2025 13:07-0500 Diastolic blood lzqunnug12 mm[Hg]Jazz Hyde RESEARCH AND DEVELOPMENT SCIENTIST Work Phone: [phone] [place], [place] 0105703-05-2025 13:07-0500 Heart rate82 /Gabeleonormelony Mary Ellen RESEARCH AND DEVELOPMENT SCIENTIST Work Phone: [phone])[address]03-05-2025 13:07-0500 SaO2% (BldA) [Mass fraction]93 %Jazz Hyde RESEARCH AND DEVELOPMENT SCIENTIST Work Phone: [phone]03-05-2025 13:07-0500 Systolic blood iiivnegp398 mm[Hg]Jazz Hyde RESEARCH AND DEVELOPMENT SCIENTIST Work Phone: [phone]02-04-2025 08:26-0500 Body .8 cmJazz Mosesjuanacher RESEARCH AND DEVELOPMENT SCIENTIST Work Phone: [phone] [place], [place] 3678602-04-2025 08:26-0500 Body mass index (BMI) [Ratio]54.1 kg/a7IzixinspJazz Kwonr RESEARCH AND DEVELOPMENT SCIENTIST Work Phone: [phone] [place], [place] 3678602-04-2025 08:26-0500 Body bvcdeafcvtm39.8 [degF]Jazz Mary Ellen RESEARCH AND DEVELOPMENT SCIENTIST Work Phone: [phone] [place], [place] 3678602-04-2025 08:26-0500 Body .11 kgJazz Mosesjuanreemafaraz RESEARCH AND DEVELOPMENT SCIENTIST Work Phone: [phone] [place], [place] 3678602-04-2025 08:26-0500 Diastolic blood mjmgvqyo82 mm[Hg]Jazz Mary Ellen RESEARCH AND DEVELOPMENT SCIENTIST Work Phone: [phone] [place], [place] 3678602-04-2025 08:26-0500 Heart omge806 /minJazz Mosesjuarez RESEARCH AND DEVELOPMENT SCIENTIST Work Phone: [phone] [place], [place] 3678602-04-2025 08:26-0500 SaO2% (BldA) [Mass fraction]90 %Jazz Mosesjuarez RESEARCH AND DEVELOPMENT SCIENTIST Work Phone: [phone] [place], [place] 3678602-04-2025 08:26-0500 Systolic blood nuwgbpli623 mm[Hg]Jazz Mosesjuarez RESEARCH AND DEVELOPMENT SCIENTIST Work Phone: [phone] [place], [place] 3678612-17-2024 10:53-0500 Body lmvurc206.8 cmJazz Mosesjuanreemafaraz RESEARCH AND DEVELOPMENT SCIENTIST Work Phone: [phone] [place], [place] 3678612-17-2024 10:53-0500 Body mass index (BMI) [Ratio]53.7 kg/g0CfpboiofJazz Mosesjuanreemar RESEARCH AND DEVELOPMENT SCIENTIST Work Phone: [phone] [place], [place] 3678612-17-2024 10:53-0500 Body uzxwntlyzmp81.3 [degF]Jazz Mary Ellen RESEARCH AND DEVELOPMENT SCIENTIST Work Phone: [phone] [place], [place] 3678612-17-2024 10:53-0500 Body ouhnmz998.81 kgJazz Hyde RESEARCH AND DEVELOPMENT SCIENTIST Work Phone: [facility]12-17-2024 10:53-0500 Diastolic blood lodjmpxx11 mm[Hg]Jazz Hyde RESEARCH AND DEVELOPMENT SCIENTIST Work Phone: [facility]12-17-2024 10:53-0500 Heart rate81 /Gemma Hyde RESEARCH AND DEVELOPMENT SCIENTIST Work Phone: [facility]12-17-2024 10:53-0500 SaO2% (BldA) [Mass fraction]92 %Jazz Mosesjuarez RESEARCH AND DEVELOPMENT SCIENTIST Work Phone: [facility]12-17-2024 10:53-0500 Systolic blood wcscwivx997 mm[Hg]Jazz Kwonfaraz RESEARCH AND DEVELOPMENT SCIENTIST Work Phone: [facility]11-01-2024 08:58-0400 Body .8 cmSt. [facility]11-01-2024 08:58-0400Body mass index (BMI) [Ratio]53.8 kg/d3WvbcrgeieSt. Mary'S Medical Center11-01-2024 08:58-0400Body tsxephguwie73.6 [degF][facility]11-01-2024 08:58-0400Body .23 kgSt. [facility]11-01-2024 08:58-0400Diastolic blood derxdlox72 mm[Hg][facility] 12-26-2023 08:58-0400Heart zbqe120 /minSt. Mary'S Medical Center 12-26-2023 08:58-8125NqS7% (BldA) [Mass fraction]93 %[facility]11-01-2024 08:58-0400Systolic blood nedfrhng617 mm[Hg][facility]10-01-2024 08:33-0400Body pjhsna447.8 cmSt. [facility]10-01-2024 08:33-0400Body mass index (BMI) [Ratio]53.4 kg/u1ToxyiwoofSt. Mary'S Medical Center10-01-2024 08:33-0400Body ldooouqrwhw11.3 [degF][facility]10-01-2024 08:33-0400Body .79 kgSt. [facility]10-01-2024 08:33-0400Diastolic blood kfbhajij96 mm[Hg] [facility]10-01-2024 08:33-0400Heart rate72 /[facility]10-01-2024 08:33-7558PiP9% (BldA) [Mass fraction]90 % [facility]10-01-2024 08:33-0400Systolic blood ivtkqgki194 mm[Hg][facility]06-24-2024 08:28-0400Body uxgdht020.[address] [facility]06-24-2024 08:28-0400Body mass index (BMI) [Ratio]52.4 kg/t8YyvkjjrkeSt. Mary'S Medical Center06-24-2024 08:28-0400Body ejvqvb778.01 kgSt. Mary'S Medical Center06-24-2024 08:28-0400Diastolic blood hfloxhzu52 mm[Hg][facility]06-24-2024 08:28-0400 Heart rate85 /[facility]06-24-2024 08:28-1128HdM1% (BldA) [Mass fraction]94 %[facility]06-24-2024 08:28-0400 Systolic blood erlslmoq907 mm[Hg][facility]06-10-2022 10:25-0400Blood Pressure LocationBasem Eid [facility]06-10-2022 10:25-0400 Diastolic blood dedaacuh17 mm[Hg]Basem Eid [facility]06-10-2022 10:25-0400Heart rate87 /minBasem Eid [facility]06-10-2022 10:25-6900EyQ9% (BldA) [Mass fraction]95 %Basem Eid [facility]06-10-2022 10:25-0400 Systolic blood hqlueywi510 mm[Hg]Hansa Eid [facility]08-16-2020 00:30-0400Pulse Lhdljtuq11 %Myah VoMrripfernqaFepbZyvdpp60-07-7146 00:15-0400Pulse (Heart Rate)92 /minMyah VoSvekhnrgzciTdokVzfkpa54-38-1561 00:15-0400Respiratory Rate20 /minMyah BellDckcowypclfCsuhFsarsg34-36-7693 23:32-0400BP Nphqwxxaj49 mm[Hg] Myah VoHxvjeqcorwdKhunHtgzho85-68-1628 23:32-0400BP Bmoolpqb381 mm[Hg]Myah VoZveljwmijugYcyqSdhkuc55-75-2513 22:37-0400BMI (Body Mass Index)52.23 kg/m2 Myah VoKcnhzfoujiiOohgSbxfnu76-90-6843 22:37-0400Body Uzeqkmmfqtc56.2 [degF] Myah VoOwjtyxrklztPrhtKmawgl04-62-9714 22:37-0400Body aboowf631.83 kgAtrium Healthvirgilio VoZkvxqzjqinqJqnaIdscom00-03-7299 22:37-0715Bjdtsh839.8 Kristin Valle NqckZylvtx57-28-8370 10:19-0400BP Trwejbpaf69 mm[Hg]Angelo [facility]ellanLouis [facility] 12-10-2018 10:19-0400BP Spjuwraq276 mm[Hg]Angelo McleanFfhptjnsadqMmigMgogcq23-61-1529 10:19-0400Pulse (Heart Rate)78 /minerika GddqfonpgyqGiisNgsyul09-52-0228 10:19-0400Pulse Npmoedfa01 %Angelo McleanFlagstaff Medical CenterHealthComment on above:ra 12-10-2018 10:19-0400Respiratory Rate20 /minAleksandrerika Devulalifepoint hospitalslyCtioHealth 06-15-2018 11:07-0400BMI (Body Mass Index)54.39 kg/c8Jvphvq AshleighKaiser Permanente Medical CenterioSelect [facility] 06-15-2018 11:07-0400Body Rsfagrapwln76.81 [degF][facility] 06-15-2018 11:Body hpsuoq828.9 kgPiedmont Henry HospitalHsgdsjsQwrwTufcua30-08-8191 11:BP Usrrefyyg82 mm[Hg][facility] HospitalDdrvnpgEocbEotvdc28-01-2949 11:BP Yxleefpt436 mm[Hg][facility] HospitalFddibqwOutiSnqeka24-28-7078 11:0638Hvdeqs911.3 cm [facility] HospitalGxjucucGykhQugbik37-58-6897 11:0Pulse (Heart Rate)76 /minPiedmont Henry HospitalGqkpjpwLimfTazjlb66-46-0300 11:Pulse Vmvniece61 %[facility] 06-15-2018 11:0Respiratory Rate16 /minPiedmont Henry HospitalGrrxfflBgnuClxauy20-18-7362 10:BMI (Body Mass Index)55.51 kg/e8EvpopmcCritical access hospitalVwwbdpIajdIuvyck31-63-3137 10:0BP Doezlcodh75 mm[Hg]Critical access hospitalGjgddiVfteNqrpyh36-42-0454 10:BP Xsmlkjpb883 mm[Hg]Critical access hospitalLuisohQfdzUuamne69-40-5011 10:9648Pecwot583.3 cm Critical access hospitalHymckfZkxeYzztuv19-02-6274 10:Pulse (Heart Rate)74 /minCritical access hospitalHplokzVacfVrpffr43-45-6549 10:5481Bkvrhj703.53 kgCritical access hospital 06-04-2018 09:0400BP Lenndnnul38 mm[Hg][facility]ventHealthKagdeljqozfZrlnJazthb34-93-6315 09:0400BP Agtrripk025 mm[Hg]Angelo GcxqmregbqzStgdZcynzl92-91-1257 09:0400 Vkqcfh810.3 cmAdventHealthTjcfwdxhfwbRsciKdixme40-03-4513 09:0400Pulse (Heart Rate) 75 /minAdventHealthAdkhyeofbjiHxfzZvngod39-60-5910 09:110400Pulse Tqgwgxfj55 %AdventHealthZxdyxjgacsiAckhDftjsd52-97-7090 09:110400Respiratory Rate12 /minAdventHealthUcvssesbvyfDkxzMsxdgv07-31-7322 09:22-0500BMI (Body Mass Index)53 kg/s1OuqhkAngelo Mcleanlifepoint hospitalslyCtioHealth Work Phone: 1([phone]) 206-325702-06-2018 09:22-0500BP Upietferw71 mm[Hg]Angelo Mcleanlifepoint hospitalslyWisconsinHealth Work Phone: [phone]) 518-965402-06-2018 09:22-0500BP Nwhftzmw013 mm[Hg]Angelo [facility]Flag[facility] CenterHealth Work Phone: 1(754) 761-330502-06-2018 09:22-7340Yuegba474.3 cmAngelo Mcleanlifepoint hospitalsly [facility] Work Phone: 1([phone]) 642-343002-06-2018 09:22-0500Pulse (Heart Rate)75 /minAngelo Mcleanlifepoint hospitalslyWisconsinHealth Work Phone: 1(848) 464-826302-06-2018 09:22-0500Pulse Jojpnsuw82 %Angelo [facility]Flag[facility] CenterHealth Work Phone: 1(396) 847-546602-06-2018 09:22-9930Hqbynz229.37 kgAngelo [facility]Tri[facility] Work Phone: 1(496) 165-420510-02-2017 10:310BMI (Body Mass Index)51.6 kg/m2 Angelo [facility]Flag[facility] CenterHealth Work Phone: 1(553) 912-738610-02-2017 10:31-0400BP Rzuzlosmu72 mm[Hg]Angelo [facility]Flag[facility] CenterHealth Work Phone: 1(490) 414-810110-02-2017 10:31-0400BP Nvtbffjy959 mm[Hg]Angelo [facility]Flag[facility] CenterHealth Work Phone: 1(797) 238-582610-02-2017 10:31-4545Nedfek067.3 cmAngelo [facility]Tri[facility] Work Phone: [phone] 435-740610-02-2017 10:31-0400Pulse (Heart Rate)87 /minnAgelo Capellanmary starke har[facility] geriatric psychiatry centerlyWisconsinHealth Work Phone: 1(493) 877-785210-02-2017 10:31-0400Pulse Gqfsvcfw84 %Angelo CapellanLouis [facility] Work Phone: 1([phone] 308-831510-02-2017 10:Respiratory Rate16 /minAngelo CapellanLouis Stokes [facility] Work Phone: 1([phone] 967-768910-02-2017 10:8390Nrblzd624.83 kgAngelo [facility] Work Phone: Encounters Encounter DateEncounter TypeCare ProviderFacilityStart: 01-03-2025 End: 68-88-1406yuwexxtbujLepwgike Rohrbacher RESEARCH AND DEVELOPMENT SCIENTIST Work Phone: [facility] 01-[facility]-2025 End: 85-75-3312Ohesfpu encounter procedureJazz Hyde RESEARCH AND DEVELOPMENT SCIENTIST [facility] Work Phone: Start: 40-83-0198Txg-patient / Non-visitNicole [facility] Out[facility] Work Phone: Start: 12-02-2024 End: 79-84-4063umuhcvpboiDvnbuuke Rohrbacher RESEARCH AND DEVELOPMENT SCIENTIST Work Phone: [facility] Work Phone: Start: 12-02-2024 End: 91-13-6439Jxtcsno encounter procedureJazz Stollacher RESEARCH AND DEVELOPMENT SCIENTIST [facility] Work Phone: Start: 08-23-2024 End: 16-94-6001qpytptblwtFkdcrxng Aureliarbacher RESEARCH AND DEVELOPMENT SCIENTIST Work Phone: [facility] Work Phone: Start: 08-23-2024 End: 23-13-7757Jcqvkxb encounter procedureEliceobhavesh Stollacher RESEARCH AND DEVELOPMENT SCIENTIST [facility] Work Phone: Start: 06-28-2024 End: 87-07-6989gmrishpajaStxtdqaptSt. Mary's Medical Center Work Phone: Start: 06-28-2024 End: 89-95-8206Uptilft encounter procedureFirwinchester medical [facility] Work Phone: Start: 04-28-2024 End: 26-69-7975kvgtgdcnmoBqxigvxd Rohrbacher RESEARCH AND DEVELOPMENT SCIENTIST Work Phone: [facility] Work Phone: Start: 04-28-2024 End: 25-43-7600Yqpvkib encounter procedureJennifer Rohrbacher RESEARCH AND DEVELOPMENT SCIENTIST Work Phone: [facility] Work Phone: Start: 78-04-2227Vlqkxah encounter procedureJennifer Rohrbacher RESEARCH AND DEVELOPMENT SCIENTIST [facility]: [facility] 03-30-2024 Patient encounter statusJennifer Rohrbacher RESEARCH AND DEVELOPMENT SCIENTIST Work Phone: [facility]: 03-30-2024 End: 78-96-1451cjplwcsbwuDzxizwdo Rohrbacher RESEARCH AND DEVELOPMENT SCIENTIST Work Phone: [facility] Work Phone: Start: 03-30-2024 End: 37-12-2280Khzqxrd encounter procedureJennifer Rohrbacher RESEARCH AND DEVELOPMENT SCIENTIST Work Phone: [facility] Work Phone: Start: 02-10-2024 End: 86-52-6786ttdtfedcvoGxsygyah RohrbacherFacility:[facility] Hospitaltart: 02-10-2024 End: 53-95-8137Rwpwsnvr ReferredJennifer Rohrbacher RESEARCH AND DEVELOPMENT SCIENTIST Work Phone: [facility] [place] Work Phone: Start: 02-10-2024 End: 84-06-2473Mgsygfa encounter procedureJennifer Rohrbacher RESEARCH AND DEVELOPMENT SCIENTIST Work Phone: [facility] GroupSelect [facility] Work Phone: Start: 12-26-2023 End: 83-95-8488qxliaxobqnVxxlptnliTrinity Health System [facility] Campus Work Phone: Start: 12-26-2023 End: 64-01-1409Rzznelw encounter procedureCritical Access Hospital Physician GroupSelect [facility] Work Phone: Start: 11-25-2023 End: 09-97-9663ufciiiakavUyuapxpgsSt. Mary's Medical Center Work Phone: Start: 11-25-2023 End: 04-74-6320Hzxmliq encounter procedureCritical Access Hospital Physician [facility] Work Phone: Start: 08-18-2023 End: 29-41-3187exhvztcghcCdweukkmuTrinity Health System East Campus Work Phone: Start: 08-18-2023 End: 94-54-4775Ndjvbnb encounter procedureCritical Access Hospital Physician [facility] Work Phone: Start: 04-14-6893Ldhsjdrhfnxmt procedureLaxmi Perez LPNOhioHealth Pulmonary PhysiciansComment on above:Requesting Sleep StudyStart: 12-23-2022 End: 39-66-2322pjnytzsxweIaxqbmn R RogersFacility:FTMCStart: 12-23-2022 End: 15-54-4094Ofsawrl encounter Michael Morse III [facility] Start: 08-16-2022 End: 76-37-6632ifuxihieulZidquzf J JordenFacility:FTMCStart: 08-16-2022 End: 21-40-9769Ksdzxdg encounter procedureFranchesca Don [facility] Start: 05-22-2022 End: 59-41-9453howzwrkypeUkiy C LinkFacility:FTMCStart: 05-22-2022 End: 47-99-8536Xwnntku encounter procedureAdam C Link [facility] Start: 05-06-2022 End: 21-07-1807tgtngvvwuqEyhs C LinkFacility:FTMCStart: 11-15-2021 End: 87-56-3142Pkf-admission assessmentBasem Candice Eid [facility] Start: 10-03-2021 End: 09-29-8492Jwmpezk encounter procedureBasem Candice Eid [facility] Start: 08-03-2021 End: 45-35-0689Lqqsque encounter procedureBasem Candice Eid [facility] Start: 07-03-2021 End: 61-54-7726Idb-admission assessmentBasem Candice Eid [facility] Start: 70-19-5499FpwvmvTbomoCorazon Rios MD Work Phone: [facility] GamesSelect [facility] Pulmonary PhysiciansComment on above: Chronic obstructive pulmonary disease with acute exacerbation (HCC)Start: 08-18-2020 End: 24-73-5970IqylunPtrh Orozco [facility] Pulmonary PhysiciansComment on above:Chronic obstructive pulmonary disease with acute exacerbation (HCC) (Primary Dx)Start: 06-16-2020 End: 75-61-9942grbptnifypDMXPLJuan Luis RIOSCtboston Health AmbulatoryStart: 06-16-2020 End: 06-80-3238Zdtn/qhp telephone evaluation 01-13 Octaviano Rios MD Work Phone: [facility] Pulmonary PhysiciansComment on above: Centrilobular emphysema (HCC) (Primary Dx); Obstructive sleep apnea; Tobacco abuse disorderStart: 98-34-0928hhllwsqjpvADLUD SHARMAFacility:[facility]INtart: 27-66-0736byjodcqifdFBZUC Betito CAP[facility]LLANDayton [facility] Start: 54-51-0074jydtbxawgbTTED SELFFacility:[facility]USTINtart: 82-56-6663Txflwhm encounter procedureSELF SELFFacility:[facility]INtart: 05-10-2020 End: 55-85-6534Afucqq OnlyKathldiana Bailon Luana Work Phone: [facility] Physician Group [facility] Start: 03-12-2020 End: 81-74-5396IsuxkdAglaiCorazon Rios Work Phone: [facility] Pulmonary PhysiciansStart: 02-16-2020 End: 23-43-4697qfwjamjpfsIRJKESt. Anthony Hospital AmbulatoryStart: 45-12-4739wmddmettvvJCWAX KMary Anne [facility] AmbulatoryStart: 12-28-2019 End: 01-65-0059Bbvmkpodqzjdc procedureBeProMedica Fostoria [facility] Pulmonary Physicians Comment on above:nebulizerStart: 12-01-2019 End: 56-38-6419Ljfacxamzwyhh procedureBebestUniversity Hospitals [facility] Pulmonary PhysiciansComment on above:louisedorza deniedStart: 64-04-9417medsgfanzvUVTUL SHARMA [facility] AmbulatoryStart: 10-21-2019 End: 21-34-7020inoawmelqfIZUIYSt. Anthony Hospital AmbulatoryStart: 10-10-2019 End: 18-72-1079Uvrvnzy encounter procedureTIMVIRGILIO Hogue [facility] CenterStart: 10-10-2019 End: 10-70-0806Uswoeptlv department patient visitSUMIT [facility] CenterStart: 10-09-2019 End: 59-10-3299Qtgfhoywf department patient visitMyah Valle Work Phone: [facility] DepartmentComment on above: COPD exacerbation (HCC) (Primary Dx); Chest pain, unspecified typeStart: 03-11-2019 End: 27-26-3617Bqszsiwidhrdt procedureBeProMedica Fostoria Community Hospital Pulmonary Physicians Comment on above:bipap statusStart: 02-26-2019 End: 24-45-6213Husslewjetjwb procedureSjulisa SerranoUniversity Hospitals [facility] Pulmonary PhysiciansStart: 12-10-2018 End: 89-19-1122Usbsngnczatxf procedureKim RustUniversity Hospitals Par[facility] Center Pulmonary Physicians Comment on above:titration study orderedStart: 12-10-2018 End: 32-01-1028Uvmdii outpatient visit 25 minutesAngelo Rios Work Phone: [facility] Pulmonary PhysiciansComment on above: Centrilobular emphysema (HCC) (Primary Dx); Obstructive sleep apnea; Cigarette SmokerStart: 07-03-2018 End: 92-00-0331Ivvbsiaqfvaam procedureMicemir TranFostoria City Hospital Pulmonary PhysiciansComment on above:CPAP suppliesStart: 06-15-2018 End: 23-81-7961Gugtpmaip department patient visitSUMIT [facility] Hospitaltart: 06-15-2018 End: 58-85-3345Ecxryaglv department patient visitMeenal Zhu Yaneli Work Phone: [facility] Comment on above:Pain, dental (Primary Dx)Start: 06-15-2018 End: 68-13-1288Hjvidjv encounter procedureSerenamarah Steward Work Phone: [facility] Heart & Vascular PhysiciansComment on above:ERRONEOUS ENCOUNTER--DISREGARD (Primary Dx)Start: 06-04-2018 End: 91-07-7208Jaxqvz outpatient visit 25 minutesAngelo Rios Work Phone: [facility] Pulmonary PhysiciansComment on above: Centrilobular emphysema (HCC) (Primary Dx); Obstructive sleep apnea; Tobacco abuse disorderStart: 01-99-4802Mwpwzt/outpatient visit, est, level 4 Angelo Rios Work Phone: [facility] Pulmonary PhysiciansStart: 04-01-2017 End: 00-38-8529HcoanagnxeFvdji K. Devulapally Work Phone: [facility] Pulmonary LabStart: 11-25-2016 Office/outpatient visit, est, level 5Angelo Rios Work Phone: [facility] Pulmonary PhysiciansStart: 09-11-2016 [facility] Procedures DateProcedureProcedure DetailPerforming ClinicianStart: 28-34-6498Tuaxhrj microbial cultureJennmelony Stollacher RESEARCH AND DEVELOPMENT SCIENTIST Work Phone: Start: 93-99-7632Xvgctxuqy microbial cultureJennifer Aureliarbacher RESEARCH AND DEVELOPMENT SCIENTIST Work Phone: Start: 87-83-6399Evop stain microscopyJebhavesh Mosesrbacher RESEARCH AND DEVELOPMENT SCIENTIST Work Phone: Start: 16-77-4586Tqrwh of troponin quantitativeMyah To James Work Phone: [phone]: 65-61-3902PVW COVID-19, MOLECULARMyah To James Work Phone: [phone]: 77-84-429109 lead ECGMyah Clementskpatrick Work Phone: [phone]: 37-33-3411Xarqw of troponin quantitativeMyah Gutiérrezatrick Work Phone: [phone]: 58-89-4662Skvexayuqa exam chest single view Myah To James Work Phone: [phone]: 48-17-2528Wnoiq of urea nitrogen quantitative Myah Clementskpatrick Work Phone: [phone]: 78-37-8378Vccvy count complete auto&auto difrntl wbcMyah Clementskpatrick Work Phone: [phone]: 02-48-6041Iobjxxbrpcub [Mass/volume] in Urine by Test Sami RustStart: 88-03-0561Fswmhctdex examination and evaluation Angelo Rios MD Work Phone: Start: 04-01-2017 End: 02-47-7202NMULIKOJ PFTAngelo Rios Work Phone: Plan of Treatment DateCare ActivityDetailAuthorStart: 66-15-2304Jsyccbhhb vaccinationInfluenza Vaccine (Season Ended)[facility]Start: 18-98-6235PNJWP-19 Vaccine ( season)COVID-19 Vaccine ( season)[facility]HealthStart: 13-87-0073Zgfdiqznr vaccinationSequential Influenza Vaccine (#1)[facility]HealthStart: 54-12-5232Kuiunrw DL <= 20 mg/L (U) [Mass/Vol]Urine MicroalbuminOhioHealthStart: 09-23-2020 Microalbumin measurement, urine, quantitativeUrine MicroalbuminOhioHealthStart: 86-26-6271Btdcl screening for proteinUrine MicroalbuminOhioHealthStart: 09-18-2020 End: 11-46-7822Nrwuizf encounter pxgtiskcp25/26/2021 Office Visit Pulmonology Al Solomon, CREDIT REFERENCE CLERK [address] [place] [id number] [phone] [facility] Pulmonary PhysiciansStart: 75-17-3855Qgcugulaki A1c zypofmhxcrwW8VArioQiaywgGmjks: 06-16-2020 End: 41-22-4309Csooqp Visit06/16/2020 Office Visit Pulmonology Angelo Rios MD [address] [place] [id number] [phone] [facility] Pulmonary PhysiciansStart: 95-72-6475SsK0o (Bld) [Mass fraction]S3TTwodFajdbfNnxnw: 19-53-9101Hqqtkqgxgv A1c ddnpvxzwdmmY1C OhioSelect [facility]ronStart: 02-16-2020 End: 41-19-0643Wolvlvlsdmzq72/23/2020 Telemedicine Pulmonology Al Solomon, CREDIT REFERENCE CLERK [address] [place] [address] [facility] Pulmonary PhysiciansStart: 08-20-8857Mjavovnic vaccination Sequential Influenza Vaccine (#1)[facility]HealthStart: 96-55-2204Kdstooqve vaccination givenSequential Influenza Vaccine (#1)[facility]HealthStart: 10-21-2019 End: 38-15-8131Yyjhxb Visit10/21/2019 Office Visit Pulmonology Al Solomon, [facility] [address] [place], [place] [phone] [facility] Pulmonary PhysiciansStart: 01-20-0889Gvoetgncvpurtv of herpes zoster vaccineZoster Vaccines (1 of 2)[facility]HealthStart: 80-29-7811Qsgjkuqpy for malignant neoplasm of colonOhioHealthStart: 06-17-2019 End: 13-53-8768Rkcafi Visit06/17/2019 Office Visit Pulmonology Angelo Rios MD [address] [place] [address] [phone] [facility] Pulmonary PhysiciansStart: 12-10-2018 End: 35-00-7461Qdexha Visit12/10/2018 Office Visit Pulmonology Angelo Rios MD [address] [place] [address] [phone] [facility] Pulmonary PhysiciansStart: 01-68-4431Fymbtzryy vaccination givenOhioHealthStart: 92-56-0570Ykysylfq screeningDiabetic Eye Exam [facility]HealthStart: 40-61-2426Mdfqrcporp examination and evaluationOphthalmology ExamOhioHealthStart: 06-30-2018 End: 15-52-3998Pjwecdqmn77/07/2019 Treatment Cardiac Rehabilitation Felisha Cisneros MD [address] [place] [address] [phone] [facility] Cardiac RehabStart: 06-15-2018 End: 80-05-5288Dxjcht Visit06/15/2018 Office Visit Cardiology Franky Steward MD [address] [facility] [address] [place] [address] [phone] [facility] Heart & Vascular PhysiciansStart: 10-25-2017 Influenza vaccination givenSEQUENTIAL INFLUENZA VACCINE (#1)[facility]HealthStart: 36-16-1138Iomhwdfxdz42/13/2018 Office Visit Pulmonology Angelo Rios MD [address] [place] [address] [phone] [facility] Pulmonary PhysiciansStart: 15-24-8257Tuhratjoub38/06/2018 Office Visit Pulmonology Angelo Rios MD [address] [place] [address] [phone] [facility] Pulmonary PhysiciansStart: 79-04-7897Blyjokgvm vaccinationSEQUENTIAL INFLUENZA VACCINE (#1)[facility] Work Phone: Start: 01-84-0890Uor dose computed tomography of chest without contrastLow-dose CT Lung Cancer ScreenOhioHealthStart: 11-17-2014 Screening for malignant neoplasm of lungLow-dose CT Lung Cancer ScreenOhioHealth Start: 30-04-6937Fjvgtumup C antibody, confirmatory testHepatitis C Screening [facility]HealthStart: 99-22-4891Llmilyitl C screeningHepatitis C ScreeningOhioHealth Start: 58-28-2629BYYIG-19 Vaccine (1 of 2)COVID-19 Vaccine (1 of 2)[facility] Start: 98-09-8109WDZ screeningHIV ScreeningOhioHealthStart: 22-68-8831Anmxkokqdc depression screening assessmentDepression Screening (PHQ9)[facility]Start: 39-53-9977Ihkvcrzxmu screening using PHQ-9 (Patient Health Questionnaire 9) scoreOhioHealthStart: 42-55-2812Nzdzhyts foot examinationOhioHealthStart: 68-47-5522Iifrjkmvbcpb measurement, urine, quantitativeUrine Microalbumin [place]HealthStart: 94-80-6302Kraztxxbhz examination and evaluationOphthalmology ExamOhioHealthStart: 89-15-1620Npcdojptssht Vaccine: Ped or At-Risk (1 of 2 - PCV)Pneumococcal Vaccine: Ped or At-Risk (1 of 2 - PCV)[place]HealthStart: 58-83-4514Vsauhcersgje Vaccine: Ped or At-Risk (1 of 2 - PPSV23)Pneumococcal Vaccine: Ped or At-Risk (1 of 2 - PPSV23)[place]HealthStart: 31-11-3841Mjpqban and physical examination, annual for health maintenanceCritical Access Hospital VisitOhioHealth Start: 70-91-1281Gdocrbjs specific antigen measurementPSA LevelOhioHealthStart: 39-30-3828Fudowkexz for malignant neoplasm of colonOhioHealthStart: 1970 Tetanus vaccinationOhioHealth End: 93-37-6684Zwjjitxj PFTComplete PFT Routine Centrilobular emphysema (HCC) 1 Occurrences starting 11/25/2016 until 11/25/2017[facility] Work Phone: comprehensive metabolic 2000 panel - Serum or Plasma [facility] CenterPatient EducationLow back pain in adults [facility] Work Phone: xr Chest 1 ViewXR Chest 1 View Imaging [facility] 10/09/2019 11:00 [facility] Immunizations Immunization DateImmunizationNotesCare OwjbdnksBpmfubhl04-97-5862difbdtfzy virus vaccine, unspecified formulationLaxmi Perez NOUniversity Hospitals [facility] Payers DatePayer CategoryPayerPolicy [id number]-[id number] 2019MedicaidMEDICAID MEDICAID [place] [id number] 2018-Present [phone] [address] [place] [address] [id number] 2019MedicareMEDICARE MEDICARE PART A & B xxxxxxxxxxx 2018-Present COxxxxxxxxxxx [id number] [id number] [id number] 2019 MedicareMEDICARE MEDICARE PART A & B [id number] 2018-Present [phone] [facility] [place]S [address] [address] [place] [address] [id number] [id number] [id number] 2014Medicaidxxxxxxxxxxxx [id number] 2.16.840.1.239619.3.57[id number] 2.16.840.1.864929.3.57[id number] 2.16.840.1.654165.3.57[id number] 2.16.840.1.249333.3.57[id number] 2.16.840.1.974419.3.57[id number] 2.16.840.1.529382.3.57[id number] 2.16.840.1.504107.3.57[id number] 2.16.840.1.231347.3.57[id number] 2.16.840.1.569141.3.57[id number] 2.16.840.1.652682.3.57[id number] 2..840.1.911698.3.57[id number] 2.16.840.1.061654.3.57[id number] 2.0.1.879868.3.57[id number] 2.840.1.044028.3.57[id number] 2.0.1.98[id number] 2.0.1.359667.3.579.2.531 Social History DateTypeDetailFacilityStart: 11-25-2016 End: 77-12-9623Ucommbk smoking status NHISCurrent every day smokerOhioHealth Start: 32-80-6469Ivp Assigned At BirthNot on fileCtioSelect Medical Specialty Hospital - [facility] Work Phone: Start: 06-15-2018 End: 26-08-9572Wmnlplrcyx smoked current (pack per day) - ReportedOhioHealth Start: 12-10-2018 End: 15-48-5066Vshfaci intakeCurrent non-drinker of alcohol (finding)[facility] Start: 10-10-2019 End: 70-04-9806Mesnwut use and exposureNever usedOhioHealthExposure to SARS-CoV-2 (event)YesOhioHealthExposure to SARS-CoV-2 (event)Unable to assess [facility] CenterStart: 13-70-2837Svt Assigned At BirthProMedica Toledo Hospitaltart: 18-93-2655Fohgdxm smoking statusHeavy tobacco smoker (finding) [facility] HospitalTobacco smoking statusNeverPromedica Bay Park HospitalHistory of tobacco useCigarette SmokerOhioHealthStart: 78-91-0495Tyskvg identityIdentifies as male gender (finding)OhioHealthStart: 58-52-2709Mlinwc orientationHeterosexual (finding)OhioHealthStart: 08-18-2023 End: 84-70-9434Cpluxjp smoking status NHISSmoker (finding)[facility] Hospitaltart: 65-90-5747Zjt Assigned At [facility] Hospitaltart: 03-30-2024 End: 08-29-4411IpoLqtb (finding)[facility] Medical Equipment Procedure CodeEquipment CodeEquipment Original TextEquipment IdentifierDatesUSE 1 NEEDLE ONCE [id number]: 02-30-4810nzicm as directed .[id number]: 15-11-7256Pwrtr Sugar Diagnostic (Accutrend Glucose Test Strips) stripStart: 20-12-1611Vcrpvai (Accu-Chek Softclix Lancets) miscStart: 78-42-0931Mwq Needle, Diabetic (Sure-Fine Pen [place]) 31 gauge x 5/16 needleStart: 19-69-9892Htkci Sugar Diagnostic (Accutrend Glucose Test Strips) stripStart: 02-11-2024 End: 01-73-6085Fuddkyi (Accu-Chek Softclix Lancets) miscStart: 02-12-2024 End: 49-94-5840Gcpxwap (Accu-Chek Softclix Lancets) miscStart: 02-13-2024 End: 30-92-3474Kxreg Sugar Diagnostic (Accutrend Glucose Test Strips) strip Start: 25-02-9325Jjtokpr (Accu-Chek Softclix Lancets) miscStart: 93-33-3579Ydm Needle, Diabetic (Sure-Fine Pen [place]) 31 gauge x 5/16 needleStart: 99-62-2169Ykquo Sugar Diagnostic (Accutrend Glucose Test Strips) stripStart: 02-11-2024 End: 55-88-5203Gqfihir (Accu-Chek Softclix Lancets) miscStart: 02-12-2024 End: 68-90-3260Pivqiqq (Accu-Chek Softclix Lancets) miscStart: 02-13-2024 End: 90-45-4169Ymyof Sugar Diagnostic (Accutrend Glucose Test Strips) strip Start: 06-59-3878Dfiyyfs (Accu-Chek Softclix Lancets) miscStart: 23-12-7899Evi Needle, Diabetic (Sure-Fine Pen [place]) 31 gauge x 5/16 needleStart: 61-59-7177Pramx Sugar Diagnostic (Accutrend Glucose Test Strips) stripStart: 02-11-2024 End: 46-58-3811Szcduje (Accu-Chek Softclix Lancets) miscStart: 02-12-2024 End: 10-15-8143Hwgwqtu (Accu-Chek Softclix Lancets) miscStart: 02-13-2024 End: 85-18-6548Acpml Sugar Diagnostic (Accutrend Glucose Test Strips) strip Start: 68-99-4581Ypputgz (Accu-Chek Softclix Lancets) miscStart: 33-04-8377Opt Needle, Diabetic (Sure-Fine Pen [place]) 31 gauge x 5/16 needleStart: 47-37-5882Okzil Sugar Diagnostic (Accutrend Glucose Test Strips) stripStart: 02-11-2024 End: 46-50-9961Apqiqds (Accu-Chek Softclix Lancets) miscStart: 02-12-2024 End: 10-44-1093Ouypkkf (Accu-Chek Softclix Lancets) miscStart: 02-13-2024 End: 30-61-7261Qbpje Sugar Diagnostic (Accutrend Glucose Test Strips) strip Start: 42-45-6293Colaofo (Accu-Chek Softclix Lancets) miscStart: 75-20-4950Jdj Needle, Diabetic (Sure-Fine Pen [place]) 31 gauge x 5/16 needleStart: 82-12-1047Dfhrc Sugar Diagnostic (Accutrend Glucose Test Strips) stripStart: 02-11-2024 End: 31-28-4331Nnfmtvf (Accu-Chek Softclix Lancets) miscStart: 02-12-2024 End: 30-17-8722Qwutsqv (Accu-Chek Softclix Lancets) miscStart: 02-13-2024 End: 34-43-6066Pfhca Sugar Diagnostic (Accutrend Glucose Test Strips) strip Start: 11-86-9980Gwozkbo (Accu-Chek Softclix Lancets) miscStart: 74-89-1600Soo Needle, Diabetic (Sure-Fine Pen [place]) 31 gauge x 5/16 needleStart: 27-06-1323Equov Sugar Diagnostic (Accutrend Glucose Test Strips) stripStart: 02-11-2024 End: 70-11-2059Gzwohsu (Accu-Chek Softclix Lancets) miscStart: 02-12-2024 End: 86-00-7003Yhwjyfv (Accu-Chek Softclix Lancets) miscStart: 02-13-2024 End: 03-30-2024 Clinical Notes 12-01-2019 to 12-02-2024 Note Date & UrxyKfhiUuybidqx52-77-9052 Evaluation note* Diagnosis Onset Date Resolution Status Admit Date Allergic rhinitis acuteOctober 2024 8:51amChronic obstructive pulmonary disease (COPD)acute December 02, 2024 8:51amCurrent smokeracuteOctober 2024 8:51amGERD (gastroesophageal reflux disease)acuteOct2024 8:51amHyperlipemiaacute December 02, 2024 8:51amHypertensionacuteOctober 2024 8:51amSleep apnea acuteOct2024 8:51amType 2 diabetes mellitusacuteOctober 2024 8:51amChronic obstructive pulmonary disease (COPD)acuteNov2024 8:21am [facility] Work Phone: 1(575) 210-325205-05-2025 Evaluation note* Diagnosis Onset Date Resolution Status [...] 3:21pmWound of left lower extremityacuteJune 2024 3:21pm [facility] Work Phone: 1(598) 525-120702-04-2025 Evaluation note* Diagnosis Onset Date Resolution Status [...] mellitusacuteMay 2024 8:23am Venous insufficiencyacuteMay 2024 8:23am [facility] Work Phone: 1(503) 806-542612-17-2024 Evaluation note* Diagnosis Onset Date Resolution Status [...] insufficiency (chronic) (peripheral)acute March 30, 2024 8:19am [facility] Work Phone: 1(290) 288-794512-17-2024 Evaluation note* Diagnosis Onset Date Resolution Status [...] insufficiencyacuteFebruary 2024 8:19am Dental abscessacuteMar 2024 1:03pm [facility] Work Phone: 1(353) 199-686106-06-2024 History of Present illness Narrative* Laxmi Perez LPN - 07/31/2023 9:06 AM EDT Authorization for INA fax rec'v from [facility] requesting a copy of sleep study resultwith patient signature. SS result faxed at [phone]. documented in this [id number] Hospital Discharge instructions Follow Up Care 07/27/2021 11:50:22 With:Ragini SALINAS, Hansa Harvey, PUL, SHAJI Address: [address] [place] [address] Pulmonary Clinic (Heart & Vascular) [place] [id number]- When: Unknown Comments:after his testing is completed [facility]06-25-2021 Miscellaneous Notes* Telephone Encounter - Marianela [...] to return call regarding fax received from [employer] for a refill on his Prednisone taper. documented in this [id number] History of Present illness Narrative* Angelo Rios MD - 06/16/2020 10:12 AM EDT Telephone Visit Via Phone Call Patient ID: Ector Rutledge is a 49 y.o. male on the phone for COPD Patient phone : [phone] This visit has been fully reviewed with the patient and verbal consent has been obtained. Dear Dr. Bernadine Verma MD, I had the pleasure of seeing our mutual patient, Ector Rutledge, who returns to see me in my clinic at [facility]. IMPRESSION/RECOMMENDATIONS 1. Mr. [...] and has residual AHI of 1.2. His Ilion Sleepiness Scale is 6/24 and overall he [...] He uses a full-face mask for interface. Ilion Sleepiness Scale is 9/24. He continues to [...] normal EF This note was dictated using FindProz/ Dictation Software and may contain errors that were not corrected during editing. Provider location: [facility] [address] [facility] [address] Patient location: [address] [place] [address] I have spent 11-20 minutes with the [...] Sincerely, Angelo Rios MD documented in this [id number] History of Present illness Narrative* Kim Rust LPN - 12/01/2019 1:21 PM EDT Insurance denied the tudorza until patient tries atrovent. Informed patient Dr. Rios placed an order for the atrovent today. Asked patient to try it and let us know how it is working for him. He verbalizes understanding documented in this encounterOhioSelect Medical Specialty Hospital - AkronEvaluation + Plan note Future Appointments Appointment Date:08/03/2021 10:15:00 AM Scheduled Provider:Hansa Eid MD Location:FT.Pulmonary Clinic Appointment Type:Pulmonary New Patient (FT) [facility] + Plan note Future Appointments Appointment Date:08/20/2021 07:30:00 AM Scheduled Provider: Location:.CARDIO Appointment Type:PUL Pulmonary Function Test (FT) Appointment Date:08/20/2021 08:30:00 AM Scheduled Provider: Location:.CARDIO Appointment Type:PUL Six Minute Walk Test (FT) [facility] note* Diagnosis Centrilobular emphysema (HCC)- Primary Obstructive sleep apnea Obstructive sleep apnea (adult) (pediatric) Tobacco abuse disorder documented in this encounter [facility]* Diagnosis Chronic obstructive pulmonary disease with acute exacerbation (HCC)- Primary documented in this encounter [facility]* Diagnosis Chronic obstructive pulmonary disease with acute exacerbation (HCC) documented in this encounter [facility]* Diagnosis Onset Date Resolution Status Chronic obstructive pulmonary disease (C OPD) acuteCurrent smokeracuteHyperlipemiaacuteType 2 diabetes mellitusacute [facility] Work Phone: Evaluation noteNo assessment information available [facility] Work Phone: Evaluation note* Diagnosis Onset Date Resolution Status Chronic obstructive pulmonary disease (C OPD) acuteCOPD exacerbationacuteCurrent smokeracuteHypertensionacuteType 2 diabetes mellitusacute [facility] Work Phone: Hospital course Narrative No data available for this section [facility] Discharge instructions No data available for this section [facility] Dis[facility] instructionsAmbulatory Orders* Disability Placard Time Frame: 01/03/25, Location: Determined By Patient [facility] Work Phone: Progress note No data available for this section [facility] HospitalReason for referral (narrative)No reason for referral information availableTwin City Hospital Work Phone: Assessments DiagnosisCentrilobular emphysema (HCC) [...] PM EDT CPAP supply order faxed to [facility], per patient request. F: [phone] Confirmation received. documented in this encounter* Angelo Rios MD - 12/10/2018 10:[address] Bernadine Verma MD, I had the pleasure of seeing our mutual patient, Ector Rutledge, who returns to see me in my clinic at [facility]. IMPRESSION/RECOMMENDATIONS 1. Mr. [...] He uses a full-face mask for interface. Ilion Sleepiness Scale is 9/24. He continues to [...] normal EF This note was dictated using FindProz/ Light Sciences Oncologyation Software and may contain errors that were not corrected during editing. documented in this encounter* Kim Rust LPN - 12/10/2018 1:57 PM EDT Order faxed to [facility] for titration study documented in this encounter* Kim Rust LPN - 03/11/2019 8:39 AM EST Received fax from Roger from [facility] that he spoke with patient on [...] to see me in my clinic at [facility]. IMPRESSION/RECOMMENDATIONS 1. Mr. [...] and uses a full-face mask for interface. Ilion Sleepiness Scale is 8/24. He continues to [...] COPD (chronic obstructive pulmonary disease) ([facility]), Diabetes mellitus ([facility]), GERD (gastroesophageal reflux disease), and [...] normal EF This note was dictated using FindProz/ Dictation Software and may contain errors that were not corrected during editing. in this encounter* Kim Rust LPN - 12/28/2019 9:49 AM EST Patient left a vm that he dropped his nebulizer machine and it broke and he would like a rx for a new one. [facility] I called Sheila at [facility] and she will call patient. She states she can exchange it. documented in this encounter Discharge Instructions * Attachments The following attachments cannot be sent through Care Everywhere. * Chest Pain ([place]) * Chronic Health Conditions: Conserving Energy ([place]) * COPD: Asthma ([place]) documented in this encounter* Instructions* Debbie Erwin MD - 06/15/2018 Dental Clinics We recommend that you follow-up with the dentist as soon as possible (KEITH). If you do not have one, here are some options: [facility] Dental [facility] [phone] [facility] [phone] [address] [facility] [place] [facility] (Dental Clinic) [phone] [address] [address] By appointment only. $40 standard fee - adjustable per household income [facility] [phone] [address] [facility] [phone] [facility] [phone] [address] [place], [place] [address] [facility] [phone] [address] ALL Insurances [facility] [phone] [address] [place] [address] [facility] [phone] [address] [place] [address] [facility] [phone] [place] [address] [facility] Family Practice [phone] [facility] [phone] [facility] Will take walk-in patients during certain hours of the day. [phone] [facility] Will take walk-in patients during certain hours of the day. * Attachments The following attachments cannot be sent through Care Everywhere. * Periodontal Conditions ([place]) * Smoking Cessation: Health Benefits: General Info ([place]) documented in this encounter Reason for Referral StatusReasonSpecialtyDiagnoses / ProceduresReferred By ContactReferred To ContactClosed Angelo Rios MD [address] [facility] [address] [place] [address] Chief Complaint and Reason for Visit Chief [...] section and content) DATE CREATED AUTHOR 08/20/2017 [facility] DATE CREATED AUTHOR AUTHOR'S ORGANIZ ATION 06/15/2018 [facility] DATE CREATED AUTHOR AUTHOR'S ORGANIZ ATION 10/21/2019 [facility] DATE CREATED AUTHOR AUTHOR'S ORGANIZ ATION 05/19/2020 [facility] DATE CREATED AUTHOR AUTHOR'S ORGANIZ ATION 06/18/2020 [facility] DATE CREATED AUTHOR AUTHOR'S ORGANIZ ATION 04/13/2021 [facility] DATE CREATED AUTHOR AUTHOR'S ORGANIZ ATION 03/30/2023 [facility] DATE CREATED AUTHOR AUTHOR'S ORGANIZ ATION 02/17/2024 [facility] Reason for Visit (unrecogniz ed section and content) ReasonCommentsFollow-upErrorReasonCommentsCPAP suppliesReasonCommentsFollow-up COPDSleep Apneaneeds new cpap machine has new insurance to medicare was told he needs new sleep study to get machineReasonCommentstitration study orderedReason Commentsbipap statusReasonCommentsChest PainCOPDReasonCommentsDental PainReason CommentsMedication RefillReasonCommentsFollow-upCOPDSleep Apneauses bipap have dataReasonOnset AobpCipmbitslouobphyo56/03/2020ReasonCommentsFollow-up copd/emphysemaReasonOnset DateCommentsMedication Jtgvod281ReasonOnset DateCommentstudorza dnyiia5812/01/2019ReasonOnset DateCommentsRequesting Sleep Study07/31/2023 Kayla Mcarthur RN - 10/10/2019 3:32 AM EDT ED Notes (unrecognized secti on and content) Pt sent to [facility], room 641 B with all their [...] and depending on findings possible transfer to [facility] later. At first he does not wish [...] file Gets together: Not on file Attends amish service: Not on file Active member of club or organization: Not on file Attends meetings of clubs or organizations: Not on file Relationship status: Not on file Other Topics Concern Not on file Social History Narrative Not on file Social history reviewed. Allergies: No Known Allergies Medications: Ector Rutledge Home Medication Instructions Prior to Surgery NEISHA:[id number] Printed on:10/10/19 6522 Medication Information Take last dose on Take [...] placement, I felt he was appropriate for [facility].Speaking to transfer center they attempted to get him to [facility] short stay unit. Speak with the provider at the short stay we both do not feel he is appropriate for there. Therefore he was thenaccepted back to [facility] for proper placement, safe observation admission and [...] View Preliminary Result No acute cardiopulmonary disease. Calligo/[employer] Workstation ID: [id number] MEDICATIONS ORDERED/GIVEN (if any, during ED visit): Medications ipratropium-albuteroL (DUO-NEB) 0.5-2.5 mg/3 ml nebulizer solution 3 mL (3 mL Inhalation Given 10/09/19 5868) sodium chloride (PF) (NS) flush 5 mL (has no administration in time range) And sodium chloride 0.9% (NS) (has no administration in time range) methylPREDNISolone sod suc(PF) (SOLU-medrol) Injection 125 mg (125 mg Intravenous Given 10/09/192258) aspirin chewable tablet 324 mg (324 mg Oral Given 10/09/192258) The litigation secretary of Health and Human Services and Chris Street, governor of the [facility], have declared a state of public [...] Erwin MD - 06/15/2018 12:15 PM EDT [facility] ED Attending Note: NAME: Ector Rutledge 47 y.o. CSN: [id number] PCP: Bernadine Verma MD History: Chief Complaint: [...] side. He had an appointment with his loader who sent him down here for fur [...] mg total) by mouth nightly . 30 vomtnm17 omeprazole (PRILOSEC) 40 MG capsule Take 40 [...] suspicion for deep space neck infection, RPA, TOOL POLISHER, epiglottitis, Jason's angina based on today's evaluation. [...] LAFB QRS axis: left T Inversion: aVL SD Interval: 168 QRS Interval: 88 QT Interval: 433 Clinical impression: non-specific ECG documented in this encounter Care Teams (unrecognized sec tion and content) Team MemberRelationshipSpecialtyStart DateEnd Date Bernadine Verma MD [address] [place] [address] PCP - GeneralInternal Medicine06/17/14 Al Solomon CREDIT REFERENCE CLERK [address] [place] [address] Nurse PractitionerPulmonology10/21/19Team MemberRelationshipSpecialtyStart Date End Date Bernadine Verma MD PCP - GeneralInternal Medicine06/17/14 Al Solomon CREDIT REFERENCE CLERK [address] [place] [address] Nurse PractitionerPulmonology10/21/19 Team Status: Active Member Role Status Dates Kiki Chidlress DO Primary Care Provider Active Team Status: Inactive Member Role Status Dates Kiki Childress DO Primary Care Provider Active Start: August 18, 2023 End: August 18, 2023Jazz Hyde APRN SORTING LIVESTOCK WORKER-CAttending ProviderActive Start: August 18, 2023 End: August 18, 2023 Team Status: Inactive Member Role Status Dates Kiki Childress DO Primary Care Provider Active Start: November 25, 2023 End: November 25, 2023Jazz Hyde APRN SORTING LIVESTOCK WORKER-CAttending ProviderActive Start: November 25, 2023 End: November 25, 2023 Team Status: Inactive Member Role Status Dates Kiki Childress DO Primary Care Provider Active Start: December 26, 2023 End: December 26, 2023Jazz Hyde APRN SORTING LIVESTOCK WORKER-CAttending ProviderActive Start: December 26, 2023 End: December 26, 2023 Team Status: Active Member Role Status Dates Jazz Hyde APRN SORTING LIVESTOCK WORKER-C Primary Care Provider Active Team Status: Inactive Member Role Status Dates Jazz Hyde APRN SORTING LIVESTOCK WORKER-C Primary Care Provider, Attending Provider Active Start: February 10, 2024 End: February 10, 2024 Team Status: Inactive Member Role Status Dates Jazz Hyde APRN SORTING LIVESTOCK WORKER-C Attending Provider Act prashant Start: February 10, 2024 End: February 10, 2024 Team Status: Inactive Member Role Status Dates Jazz Hyde APRN SORTING LIVESTOCK WORKER-C Primary Care Provider, Attending Provider Active Start: March 30, 2024 End: March 30, 2024 Team Status: Inactive Member Role Status Dates Jazz Hyde APRN SORTING LIVESTOCK WORKER-C Primary Care Provider, Attending Provider Active Start: April 28, 2024 End: April 28, 2024 Team Status: Inactive Member Role Status Dates Jazz Hyde APRN SORTING LIVESTOCK WORKER-C Primary Care Provider, Attending Provider Active Start: June 28, 2024 End: June 28, 2024 Team Status: Inactive Member Role Status Dates Jazz Hyde APRN SORTING LIVESTOCK WORKER-C Primary Care Provider Active Start: June 28, 2024 End: June 28, 2024Jazz Hyde RESEARCH AND DEVELOPMENT SCIENTIST SORTING LIVESTOCK WORKER-CAttending ProviderActiveStart: June 28, 2024 End: June 28, 2024 Team Status: Inactive Member Role Status Dates Jazz Hyde APRN SORTING LIVESTOCK WORKER-C Primary Care Provider Active Start: August 23, 2024 End: August 23, 2024Jazz Hyde RESEARCH AND DEVELOPMENT SCIENTIST SORTING LIVESTOCK WORKER-CAttending ProviderActive Start: August 23, 2024 End: August 23, 2024 Team Status: Inactive Member Role Status Dates Jazz Hyde RESEARCH AND DEVELOPMENT SCIENTIST SORTING LIVESTOCK WORKER-C Primary Care Provider Active Start: December 02, 2024 End: December 02, 2024Jazz Hyde RESEARCH AND DEVELOPMENT SCIENTIST SORTING LIVESTOCK WORKER-CAttending ProviderActive Start: December 02, 2024 End: December 02, 2024 Team Status: Active Member Role/Relationship Status Dates Jazz Hyde APRN SORTING LIVESTOCK WORKER-C Primary Care Provider Active Team Status: Inactive Member Role/Relationship Status Dates Jazz Hyde APRN SORTING LIVESTOCK WORKER-C Primary Care Provider Active Start: December 02, 2024 End: December 02, 2024Jazz Hyde APRN SORTING LIVESTOCK WORKER-CAttending ProviderActive Start: December 02, 2024 End: December 02, 2024 Team Status: Active Member Role/Relationship Status Dates Jazz Hyde APRN SORTING LIVESTOCK WORKER-C Primary Care Provider Active Start: November Nani Matos ProviderActiveStart: December 06, 2024 Team Status: Inactive Member Role/Relationship Status Dates Jazz Hyde APRN SORTING LIVESTOCK WORKER-C Primary Care Provider Active Start: January 032024 End: January 03, 2025Jazz Hyde APRN SORTING LIVESTOCK WORKER-CAttending ProviderActive Start: January 03, 2025 End: January [...] BE BASED ON THE PRIMARY CLINICAL RECORDS. [employer] provides no warranty or guarantee of the accuracy or completeness of information in this document.
== END 2025-01-14 08:19 | disposition home or self-care (01) ==
LOC: CT 08:18
PROVIDERS: PCP Nurse Practitioner Family; Visit Provider Nurse Practitioner Family
DX: F17.210 Nicotine dependence, cigarettes, uncomplicated (principal); Z12.2 Encounter for screening for malignant neoplasm of respiratory organs
CPT/HCPCS: 71271

== ENCOUNTER 2025-02-10 08:00 | Outpatient (OUT) | payer MEDICARE, MEDICAID, SELFPAY ==
--- OUTSIDE RECORDS SUMMARY | 2024-05-10 09:20 | XMS_ITS ---
Author Organization [facility] in [place] Address [address] [place] [address] Care Team Providers Care Manager Residential Name Role Phone Jazz Hyde CNP Primary Care Provider U Anny Ibrahim Unavailable [phone] REASON FOR VISIT Nail Care Encounters Encounter Location Date Provider Diagnosis [facility] (PODIATRY) [address] [place] [address] [place] [address] 05/10/2024 Anny Valadez Plan Of Treatment No Information Progress Notes * Ernie GUERIN JrDOB:[birth year] (54 yo M)Acc No.[id number]:05/10/2024 UNLOCKED PROGRESS NOTE Nurse Visit Patient: Nicholas LAINEZTESSY Ernie Ramirez Jr :?JORGE L DeanCDOB:1970???Age:53 Y ???Sex:MaleDate:05/10/2024Phone:[phone]:[address] [place] [address], [address], [place], [id number]:Jazz Hyde CNP Subjective: * Chief Complaints: * 1 . Nail Care. * Medical History: Objective: * Vitals: Assessment: Plan: * Treatment: * * Electronic signature of Anny Valadez PA-C on 02/14/2025 at 07:20 AM ESTSign off status: PendingVisit Status:?CANC (Cancelled) * Provider: Sweta Valadez PA-C Date: 0 05/10/2024 Generated for Printing/Faxing/eTransmitting on:?02/14/2025 07:20 AM EST
--- OUTSIDE RECORDS SUMMARY | 2025-02-14 07:20 | XMS_ITS | Clinical Summary ---
Author Organization [facility] Address [address] [place] [address] Care Team Providers Care Fur Repair Inspector Name Role Phone Pato Denson MD Primary Care Provider [phone] Antoinette Jeong SERVICE CENTER ASSISTANT Unavailable [phone] Allergies No known active allergies Medications MedicationSigDispense [...] TAKE 1 (ONE) TABLET DAILY NEEDED FOR KCYGDAUR13/17/2020Active Alcohol Prep Pads PadM USE 1 PAD [...] pulmonary disease (COPD)10/10/2019PND (paroxysmal nocturnal dyspnea)01/23/2018 Cigarette gtljsa3404/01/2017Centrilobular uextsnugr96/02/2017Obstructive sleep apnea11/25/2016Tobacco abuse jccmoygd52/02/2017Bilateral edema of lower ynvklzzgr17/02/2017 Family History Medical HistoryRelationCommentsCancerMotherHypertensionMotherRelationStatus CommentsFatherAliveMotherDeceased Social History Tobacco UseTypesPacks/DayYears UsedDateSmoking Tobacco: Every RjeGgesqdnhub765 Smokeless Tobacco: Never Tobacco Cessation:Ready to Q uit: Yes; Counseling Given: Yes Alcohol UseStandard Drinks/WeekCommentsNo0 (1 standard drink = 0.6 oz pure alcohol)Sex and Gender InformationValueDate RecordedSex Assigned at BirthNot on fileLegal YjqBpoa3811/01/2013 12:57 PM EDTGender OfepvqvmZlyg29/30/2018 1:04 PM ESTSexual ClchinjwcbzEgzhuxfg44/30/2018 1:04 PM EST Last Filed Vital Signs Vital SignReadingTime TakenCommentsBlood Yyhkzcjd492/75010/10/2019 11:13 AM EDT Ftruy44002/16/2020 11:13 AM LLNZzroonvtpgk11.8 ??C (98.3 ??F)10/10/2019 8:08 AM EDTRespiratory Uqwx036610/10/2019 11:13 AM EDTOxygen Gqowrkotrj58%10/10/2019 11:13 AM EDTInhaled Oxygen Concentration--Dxxbdp640.1 kg (363 lb 15.7 oz)10/10/2019 3:56 AM BQPEoipzf565.8 cm (5' 10 )10/09/2019 10:37 PM EDTBody Mass Index52.23 10/09/2019 10:37 PM EDT Plan of Treatment Health MaintenanceDue DateLast DoneCommentsCT Phddpvvgfwii46/18/1970Colonoscopy 1969Colorectal Cancer Screening/Mhldszraba70/18/1970Fecal DNA1969 Fecal occult blood test (FOBT,FIT)1969PSA Level1969Wellness Visit 1972Depression Screening/Follow-Up (PHQ-2/9)1981HIV Screening 1984Hepatitis C Cyblylylw48/18/1988Hepatitis B Vaccines (1 of 3 - 19+ 3- dose series)1988Tetanus/Diphtheria/Pertussis (1 - Tdap)1988 Pneumococcal Vaccine: 50+ Years (1 of 1 - PCV)10/12/2019Zoster Vaccines (1 of 2) 10/12/2019COVID-19 Vaccine (3 - 2024- season), 05/18/2020 Influenza Vaccine (#1), 12/04/2018, 11/14/2016RSV Vaccines (1 - 1-dose 75+ series)2044HIB VaccinesAged OutNo longer eligible based on patient's age to complete this topicHPV VaccinesAged OutNo longer eligible based on patient's age to complete this topicHepatitis A VaccinesAged OutNo longer eligible based on patient's age to complete this topicIPV VaccinesAged OutNo longer eligible based on patient's age to complete this topicMeningococcal ACWY VaccineAged OutNo longer eligible based on patient's age to complete this topic Meningococcal B VaccineAged OutNo longer eligible based on patient's age to complete this topicRotavirus VaccinesAged OutNo longer eligible based on patient's age to complete this topic Insurance * Guarantor: Ector Rutledgecovaughn TypeRelation to PatientDate of BirthPhone Billing AddressPersonal/JfuvctYopj53/18/1971 [phone] (Home) [address] [place] [address] Advance Directives For more information, please contact: [phone] * Full Code (Latest Code Status on File) Date ActivatedDate InactivatedComments10/10/2019 4:19 AM10/10/2019 4:28 PM Care Teams Team MemberRelationshipSpecialtyStart DateEnd Date Pato Denson MD PCP - GeneralInternal Medicine06/17/14 Antoinette Jeong, SERVICE CENTER ASSISTANT [address] [address] Nurse PractitionerPulmonology10/21/19
--- OUTSIDE RECORDS SUMMARY | 2025-02-14 07:20 | XMS_ITS | Clinical Summary ---
Author Organization [facility] Address [address] [place] [address] Care Team Providers Care Gold Leaf Printer Name Role Phone Unavailable Primary Care Provider Unavailabl e Social History Tobacco UseTypesPacks/DayYears UsedDateSmoking Tobacco: Never AssessedSex and Gender InformationValueDate RecordedSex Assigned at BirthNot on fileLegal Sex Male09/04/2023 4:04 PM EDTGender IdentityNot on fileSexual OrientationNot on file Plan of Treatment Not on file Insurance
--- OUTSIDE RECORDS SUMMARY | 2025-02-14 07:20 | XMS_ITS | Clinical Summary ---
Author Organization [facility] Address [address], [address] [place] [address] Care Team Providers Care Concrete Stone Fabricator Name Role Phone Jazz Hyde APRN, CNP [...] meals)5Active guaiFENesin 1200 MG TB12 Daily at aqbxefl48/30/2025Active ipratropium (ATROVENT) 0.03 % nasal spray 2 [...] for Shortness of Breath 54 g 5Active Xnrzhhq-Eixsqwjmmfx-Lpnuhjjhlb (BREZTRI AEROSPHERE) 160-9-4.8 MCG/ACT AERO Indications:Centrilobular emphysema (HCC)Inhale 2 puffs into the lungs 2 times daily Rinse after use. 32.1 g 5Active ipratropium 0.5 mg-albuterol 2.5 mg (DUONEB) 0.5-2.5 (3) MG/3ML SOLN nebulizer solution Indications:Centrilobular emphysema (HCC)Inhale 3 mLs into the lungs every 4 hours 1620 mL 5Active Active Problems ProblemNoted DateDiagnosed DateMorbid obesity with [...] patient has not seen a dietitian or mold yard supervisor. He is not following any particular diet. [...] improve with lifestyle modifications (smoking, diet, exercise). 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 Centrilobular wgoqcqutu83/02/2017 Assessment & Plan (01/12/2025 11:02 AM EST): [...] would worsen his DM2 and obesity. A yagz-fy-zjum encounter was performed with the patient today [...] & Plan (01/12/2025 11:02 AM EST): A stgg-jp-bang encounter was performed with the patient today in order to document continued need for positive airway pressure (PAP). -Current DME: [facility] -Compliance was reviewed from 11/24/2024 to 12/23/2024 -Total days used: 30 (100%) days -Total days of use >4 hours: 28/30 (93%) days with median use of 8 hours 58 minutes -Current model: AirCurve 10 VAuto -Current mode: CPAP @ 69aaL4X -Residual AHI: 0.2 -Median air leak: 5.8L/min New Unit -Compliance was reviewed from 12/23/2024 to 01/11/2025 -Total days used: 20/20 (100%) days -Total days of use >4 hours: 20/20 (100%) days with median use of 9 hours 18 minutes -Current model: AirCurve 10 VAuto -Current mode: BiPAP @ IPAP 77ygC7K & EPAP 8cmH2O -Residual AHI: 0.5 -Median [...] week. Resolved Problems ProblemNoted DateDiagnosed DateResolved DateAllergic golmetcv65/19/2025 01/12/2025 Encounters DateTypeDepartmentCare SohiYhsvivaikkp68/19/2025 8:00 AM ESTOffice Visit [facility] [address], [address] [place] [address] Ebenezer Frias DO Centrilobular emphysema (Primary Dx); MICHA (obstructive sleep apnea); Cigarette nicotine dependence with nicotine-induced disorder; Right lower lobe lung mass; Morbid obesity with BMI of 50.0-59.9; DM2 (diabetes mellitus, type 2); senior care (current) use of 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sfrom Last 3 Months Family History Medical HistoryRelationNameCommentsNo Known ProblemsFatherAsthmaMotherCancer MotherHypertensionMotherRelationNameStatusCommentsFatherMother Social History Tobacco UseTypesPacks/DayYears UsedDateSmoking Tobacco: Every BlcLgpvnpddbv436 Started: 1985Smokeless Tobacco: Never Tobacco Cessation:Ready to Q uit: No; Counseling Given: Yes Alcohol UseStandard Drinks/WeekCommentsNot Currently0 (1 standard drink = 0.6 oz pure alcohol)Sex and Gender InformationValueDate RecordedSex Assigned at Male12/30/2024 2:44 PM ESTLegal RdnIbsp11/06/2025 2:42 PM ESTGender IdentityMale 12/30/2024 2:44 PM ESTSexual UdttsixrbdiHupjefcr33/06/2025 2:44 PM EST Last Filed Vital Signs Vital SignReadingTime TakenCommentsBlood Oeeroxkc842/7801/12/2025 8:00 AM EST Ftyvo141801/12/2025 8:00 AM RKPIzgrxnfcwfu15 ??C (96.8 ??F)01/12/2025 8:00 AM EST Respiratory Wqiu7215 8:00 AM ESTOxygen Xwbiangcdt90%01/12/2025 8:00 AM ESTon room airInhaled Oxygen Concentration--Vnqmdj234 kg (355 lb)01/12/2025 8:00 AM UHONntfsx597.8 cm (5' 10 )01/12/2025 8:00 AM ESTBody Mass Index50.94 01/12/2025 8:00 AM EST Plan of Treatment DateTypeDepartmentCare Team (Latest Contact Info)Xzrpuyqxkrq43/17/2026 9:00 AM ESTOffice Visit [facility] [address] [place] [address] [address] [place] [address] [place] [address] [place] [address] [address] [place] [address] F/U 3 MO COPD/OSAHealth MaintenanceDue DateLast JxmdYobfoavsC8T test (Diabetic or Prediabetic)10/12/1979Diabetic foot exam10/12/19797552Mwoujk78/18/1980Depression Seuytc4910/11/1981HIV mkkiyx8910/11/1984Diabetic Alb to Cr ratio (uACR) test 10/12/1987Diabetic retinal exam10/12/1987GFR test (Diabetes, CKD 3-4, OR last GFR 15-59)10/12/1987Hepatitis C alahtp0010/12/1987DTaP/Tdap/Td vaccine (1 - Tdap) 1988Hepatitis B vaccine (1 of 3 - 19+ 3-dose series)1988Colonoscopy 2014Colorectal Cancer Czhkzs1910/11/2014FIT/FOBT: Average risk2014 Fecal-DNA (Cologuard): Average risk2014Sigmoidoscopy/CT colonography 2014Lung Cancer Screening &/or Phqcilztlw46/18/2020Shingles vaccine (1 of 2)10/12/2019Flu vaccine (#1)509/, 12/05/2021, 12/02/2020, Additional history existsCOVID-19 Vaccine ( season)2024 11/16/2022, 12/05/2021, 12/23/2020, Additional history existsAnnual Wellness Visit (Medicare)12/30/2024Pneumococcal 50+ years EzsfjibXcyqwrpfi48/25/2025 Hepatitis A vaccineAged OutNo longer eligible based [...] Care Teams Team MemberRelationshipSpecialtyStart DateEnd Date Jazz Hyde, CHRIS - FEEDER/FOLDER [id number] [facility] - Smtgfae92/6/25
--- OUTSIDE RECORDS SUMMARY | 2025-02-14 07:20 | XMS_ITS | Patient Health Record ---
Author Organization [facility] Address [address] [place] [address] Care Team Providers Care Manager Metrology Name Role Phone Jazz Hyde CNP Primary Care Provider U kristyangie RoryAnny Unavailable [phone] Ebenezer Frias Unavailable [phone] Allergies No Known Allergies Reason For Referral No Information Medications Medication [...] 90 DaysActiveglipiZIDE 10 MGOral; Duration: 90 DaysActiveIpratropium [place] 0.03 %Nasal; Duration: 90 DaysActive Victoza 18 MG/3MLas directed Zezpwdhtjuna04/05/2025ActiveKlor-Con M20 20 MEQ Oral; Duration: 90 DaysActiveIpratropium-Albuterol [...] 03/31/2024Not-Taking Immunizations Vaccine Route Administration Date Status Kaity Miles Pfizer Syringe Pre -Filled 30 mcg/0.3 mL Unknown 11/16/2022 Administered Flu, Flucelvax (48086) 2 yrs+, single-dose syringe (0074-3060)Dankvkv8211/16/2022 Administered Social History Tobacco Use: Social History [...] Risk Notes Problem Chronic obstructive pulmonary disease (46781864) Chronic obstructive pulmonary disease, unspecified (J44.9) ActiveconfirmedProblemPolyneuropathy due to type 2 diabetes mellitus (266142502) Type 2 diabetes mellitus with diabetic polyneuropathy (E11.42)Activeconfirmed ProblemFoot ulcer due to type 2 diabetes mellitus (0582747912572)Type 2 diabetes mellitus with foot ulcer (E11.621)ActiveconfirmedProblemChronic ulcer of foot (258738793)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)ActiveconfirmedProblemLong-term current use of 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 (651604724)snf (current) use of 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s (Z79.51)Activeconfirmed ProblemMorbid obesity (937824839)Morbid obesity (E66.01)ActiveconfirmedProblem COPD - Chronic obstructive pulmonary disease (74244208)COPD (chronic obstructive pulmonary disease) (J44.9)ActiveconfirmedProblemObstructive sleep apnea syndrome (86675089)MICHA (obstructive sleep apnea) (G47.33)ActiveconfirmedProblemDiabetes mellitus type 2 (disorder) (47533729)DM2 (diabetes mellitus, type 2) (E11.9) ActiveconfirmedProblemMental disorder caused by drug (507519601)Cigarette nicotine dependence with nicotine-induced disorder (F17.219)Activeconfirmed ProblemLung field abnormal (807741578)Right lower lobe lung mass (R91.8)Active confirmedProblemBody mass index 40+ - morbidly obese (877631555)Body mass index [BMI] 50.0-59.9, adult (Z68.43)Activeconfirmed Vital [...] Encounter Location Date Provider Diagnosis Pulmonary Medicine [place] [address] [place] [address] 03/25/2024 [facility] Pulmonary Medicine [address] [place] [address] [address] [place] [address] [facility] [address] [place] [address] [address] [place] [address]/06/20[facility] J44.9 ; Cigarette nicotine dependence with nicotine-induced disorder F17.219 ; Morbid obesity E66.01 and Body mass index [BMI] 50.0-59.9, adult Z68.43Pulmonary Medicine [address] [place] [address] 08/11/2024Ebenezer FriasCOPD (chronic obstructive pulmonary disease) J44.9 ; Right [...] Notes Section Notes 08/11/2024 COPD (chronic obstructive pulmon radha disease) (ICD-10 - J44.9) Using Breztri, remains [...] hours later, he can then use DuoNeb. Zttb-qa-druk encounter performed with the patient to document continued need for a nebulizer with nebulized medications. -Current nebulized medications: DuoNeb -Symptom control: Better with use -Reported side or adverse effects: None -Recommendations: Continue DuoNeb. Renew/reorder/refill nebulizer and supplies. 5COPD (chronic obstructive pulmonary disease) (ICD-10 - J44.9) Ydqc-lw-wdkz encounter performed with the patient to document [...] 01/2025. Personally handed patient order for test. 08/11/2024igarette nicotine dependence with nicotine-induced disorder (ICD-10 - F17.219) Discussed cessation yet again. Continues to smoke 1ppd and voiced no desire to quit at this time after voicing understanding of the risks of ongoing smoking. 03/31/2024ody mass index [BMI] 50.0-59.9, adult (ICD-10 - Z68.43)08/11/2024OSA (obstructive sleep apnea) (ICD-10 - G47.33) Fgrq-we-neos encounter performed with the patient to document continued need for PAP therapy. -Compliance was reviewed from 07/12/2024 - 08/10/2024 -Total days used: 30 (100%) -Total of all days >4 hours of use: 30/30 (100%) -Current model, mode, & pressure: AirCurve 10 VAuto 91uvH6D -Residual AHI: 0.2 -Air leak (median): 1.6L/min -Mask/harness fitting: No complaints -Sleep quality: Better with PAP use -Daytime hypersomnolence: Decreased with PAP use -Recommendations: Superb compliance with voiced benefit and no concerns expressed today. Continue CPAP @ current settings @ HS/naps. -Note: This zlzk-et-etcv visit comes with my authorization that the patient's DME may request to renew, reorder, and/or replace tubing, supplies, mask, and/or PAP device (if applicable). 08/11/2024DM2 (diabetes mellitus, type 2) (ICD-10 - [...] Weight loss indicated: Decrease calories, increase activity. 08/11/2024Long term (current) use of 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s (ICD-10 - Z79.51) Patient was counseled to rinse & gargle with water after inhaled corticosteroid use. 08/11/2024ody mass index [BMI] 50.0-59.9, adult (ICD-10 - Z68.43)03/31/[address] 02/06/2024: No change [...] to annual LDCT screening. Patient voiced understanding. Rize-dc-yiih encounter performed with the patient to document continued need for PAP therapy. -Compliance was reviewed from 01/10/2024 - 02/08/2024 -Total days used: 30 (100%) -Total of all days >4 hours of use: 30/ (100%) -Current model, mode, & pressure: AirCurve 10 VAuto 36riO0J -Residual AHI: 0.2 -Air leak (95th percentile): 49.8L/min -Mask/harness fitting: No complaints -Sleep quality: Sleeps well with limited nocturnal awakenings -Daytime hypersomnolence: Feels well-rested in the morning -Recommendations: Maintain superb compliance without any significant issues. He loves his machine and cannot sleep without it. MICHA has resolved with use. Continue CPAP @ current settings @ HS/naps. -Note: This uziy-ed-ombh visit comes with my authorization that the [...] after inhaled corticosteroid use. Plan Of Treatment Future Test Test Name Order Date CT Chest w/o contrast 02/07/2025 Insurance Providers Payer Name Payer Address Payer Phone Subscriber Number Group Number Insured Name Patient Relationship to Insured Coverage Start Date Coverage End Date [place]IC[place] [address] [place] [place] [address] [id number] Usha Rutledge - patient is the [id number] [address] INS [address] OFFICE OF [place], [place] [id number] Usha Rutledge - patient is the insured Medical (General) History Medical History History ICD Code COPD (chronic obstructive pulmonary dise ase) J44.9 Cigarette nicotine dependence with nicot ine-induced disorder F17.219 snf (current) use of inhaled stero ids Z79.51 MICHA (obstructive sleep apnea) G47.33 Gastroesophageal reflux disease with eso phagitis without hemorrhage K21.00 DM2 (diabetes mellitus, type 2) E11.9 HTN (hypertension) I10 Allergic rhinitis J30.9 Morbid obesity E66.01 Right lower lobe lung mass R91.8 venous insufficiency
== END 2025-02-10 08:01 | disposition home or self-care (01) ==
LOC: FHNEUROLOG 02-14 07:17
PROVIDERS: PCP Family Medicine; Visit Provider Psychiatry & Neurology Neurology
DX: G47.33 Obstructive sleep apnea (adult) (pediatric) (principal)
CPT/HCPCS: G0463

== ENCOUNTER 2025-02-17 09:50 | Inpatient (IN) | payer MEDICARE, MEDICAID, SELFPAY ==
--- OUTSIDE RECORDS SUMMARY | 2024-05-10 09:20 | XMS_ITS ---
Author Organization [facility] in [place] Address [address] [place] [address] Care Team Providers Care Rough Rice Tender Name Role Phone Jazz Hyde CNP Primary Care Provider U Anny Ibrahim Unavailable [phone] REASON FOR VISIT Nail Care Encounters Encounter Location Date Provider Diagnosis [facility] (PODIATRY) [address] [place] [address] [place] [address] 05/10/2024 Anny Valadez Plan Of Treatment No Information Progress Notes * Ernie GUERIN JrDOB:[birth year] (54 yo M)Acc No.[id number]:05/10/2024 UNLOCKED PROGRESS NOTE Nurse Visit Patient: Nicholas LAINEZTESSY Ernie Ramirez Jr :?JORGE L DeanCDOB:1970???Age:53 Y ???Sex:MaleDate:05/10/2024Phone:[phone]:[address] [place] [address], [address], [place], [id number]:Jazz Hyde CNP Subjective: * Chief Complaints: * 1 . Nail Care. * Medical History: Objective: * Vitals: Assessment: Plan: * Treatment: * * Electronic signature of Anny Valadez PA-C on 02/17/2025 at 10:44 AM ESTSign off status: PendingVisit Status:?CANC (Cancelled) * Provider: Sweta Valadez PA-C Date: 0 05/10/2024 Generated for Printing/Faxing/eTransmitting on:?02/17/2025 10:44 AM EST
[2025-02-17] VITALS (28 sets, daily range): BP systolic 110–170; BP diastolic 66–97; PULSE 71–124; RESP 14; TEMP 36.5–36.9; O2SAT 84–100; BMI 53.1
--- NOTE | 2025-02-17 10:03 | ECG_ITS ---
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 Measurements Intervals [place] Rate: 91 P: 42 AK: 152 QRS: -66 QRSD: 92 T: 74 QT: 342 QTc: 391 Interpretive Statements 1100 Sinus rhythm 2440 Incomplete right bundle branch block 2630 Left anterior fascicular block 4068 Nonspecific Twave abnormality 8003 Consistent with pulmonary disease 9150 abnormal ECG Compared to ECG 08/02/2023 19:59:12 Incomplete right bundle-branch block now present Electronically Signed On 02-17-2025 21:25:13 EST by MORGAN EATON M.D.
--- NOTE | 2025-02-17 10:03 | XR_ITS ---
[address] [address] Patient Name: FRANKO GUERIN MRN: [id number] date: 1970 Sex: M Assigned Patient Location: ER Current Patient Location: ER Accession/Order Number: [id number] Exam Date: 02/17/2025 10:30 Report Date: 02/17/2025 11:22 At the request of: DIOGO KLINE DO Procedure: XR chest 2V Plain film chest 2 view HISTORY: Acute dyspnea COMPARISON: None FINDINGS: SUPPORT DEVICES: None POSTSURGICAL CHANGES: None HEART: Within normal limits PULMONARY WILFREDO: Within normal limits MEDIASTINUM: Unremarkable LUNGS AND PLEURA: No acute lung process, pleural effusion or pneumothorax identified. Mild basilar atelectasis BONY STRUCTURES: Intact ADDITIONAL FINDINGS None XR/XR chest 2V IMPRESSION: No acute process. Impression dictated by: Jona Mack M.D. 02/17/2025 11:22 AM Dictation Location: [place] [address] Electronically authenticated by: [id number] Y Date: 02/17/2025 11:22
[2025-02-17] MEDS: IPRATROPIUM/ALBUTEROL SULFATE 3 ML AMPUL.NEB 9 ML IH (10:06)
--- NOTE | 2025-02-17 10:12 | ED.GENADUL1 ---
HPI HPI - General Adult General Chief complaint: Shortness of Breath/Dyspnea Time Seen by Provider: 02/17/25 09:57 Source: patient Mode of arrival: Wheelchair Limitations: no limitations History of Present Illness HPI narrative: Patient is a 54-year-old male, history significant for COPD not on home oxygen and nxj-apgqjnj-dbqbfiuei type 2 diabetes, presenting to the emergency department for evaluation of shortness of breath. Patient has been having flulike symptoms consisting cough, congestion, and fatigue for the last 3 days. He felt significantly short of breath yesterday, which continues to worsen throughout the day today. He has been using his albuterol inhaler at home, which only minimally helps his symptoms. He denies any associated chest pain. No fevers or chills. Denies history of previous CT or coronary stents. He denies history of DVT/PE, no recent surgical procedures, no hemoptysis, no history of cancer, and no recent immobilizations. He has chronic leg swelling which is unchanged from his baseline. He denies abdominal pain, nausea, vomiting, diarrhea, constipation. Related Data Home Medications ?Medication ?Instructions ?Recorded ?Confirmed albuterol sulfate 90 mcg/actuation 2 puff inhalation Q4H PRN 08/02/23 02/17/25 aerosol inhaler (Ventolin HFA) shortness of breath or wheezing atorvastatin 20 mg tablet 20 mg PO DAILY 08/02/23 02/17/25 budesonide 160 mcg-glycopyr 9 2 inh inhalation DAILY PRN 08/02/23 02/17/25 mcg-formot 4.8 mcg/actuation HFA shortness of breath inhaler (Breztri Aerosphere) glipizide 10 mg tablet 10 mg PO DAILY 08/02/23 02/17/25 guaifenesin 1,200 mg tablet, 1,200 mg PO BID 08/02/23 02/17/25 extended release 12 hr (Mucus Relief ER) lisinopril 5 mg tablet 5 mg PO DAILY 08/02/23 02/17/25 metformin 1,000 mg tablet 1,000 mg PO BID 08/02/23 02/17/25 montelukast 10 mg tablet 10 mg PO DAILY 08/02/23 02/17/25 omeprazole 40 mg capsule,delayed 40 mg PO DAILY 08/02/23 02/17/25 release ipratropium 0.5 mg-albuterol 3 mg 3 ml inhalation Q6H 02/17/25 02/17/25 (2.5 mg base)/3 mL nebulization soln ipratropium bromide 21 mcg (0.03 2 spray intranasal BID 02/17/25 02/17/25 %) nasal spray liraglutide 0.6 mg/0.1 mL (18 mg/3 0.6 mg subcut Q24H 02/17/25 02/17/25 mL) subcutaneous pen injector potassium chloride 20 mEq 20 meq PO DAILY 02/17/25 02/17/25 tablet,extended release(part/cryst) Allergies Allergy/AdvReac Type Severity Reaction Status Date / Time No Known Drug Allergies Allergy Verified 02/17/25 09:57 Review of Systems ROS Status of ROS 10 or more systems reviewed and unremarkable except as noted in history and below [facility] Social History Little interest or pleasure in doing things: not at all Feeling down, depressed, or hopeless: not at all Exam Narrative Exam Narrative: CONSTITUTIONAL: Appears to be in mild to moderate respiratory distress, speaking in truncated sentences, sitting upright in the stretcher, mentating appropriately, answering questions and following commands appropriately SKIN: Was warm and dry. EYES: Sclerae white. EARS, NOSE, THROAT: Moist oral mucosa. Sounds congested with clear rhinorrhea. RESPIRATORY: Bilateral expiratory wheezing with use of accessory muscles. CARDIOVASCULAR: Tachycardic rate and regular rhythm. There is no S3, S4, murmur, rub. GASTROINTESTINAL: Abdomen is nondistended. MUSCULOSKELETAL: Bilateral 1+ lower extremity pitting edema with chronic venous stasis ulcers. No induration or cellulitic changes. NEUROLOGIC: Patient is awake and alert. Facies were symmetrical. Constitutional Vital Signs, click to edit/add: Last Vital Signs Temp 98.3 F 02/17/25 09:53 Pulse 108 H 02/17/25 11:40 Resp 24 H 02/17/25 11:40 BP 152/79 H 02/17/25 10:39 Pulse Ox 98 02/17/25 11:40 O2 Del Method Nasal Cannula 02/17/25 11:37 O2 Flow Rate 4 02/17/25 11:37 Course Vital Signs Vital signs: Vital Signs Temperature 98.3 F 02/17/25 09:53 Pulse Rate 110 H 02/17/25 09:53 Respiratory Rate 24 H 02/17/25 09:53 Blood Pressure 170/97 H 02/17/25 09:53 Pulse Oximetry 85 L 02/17/25 09:53 Oxygen Delivery Method Room Air 02/17/25 09:53 Temperature 98.3 F 02/17/25 09:53 Pulse Rate 108 H 02/17/25 11:40 Respiratory Rate 24 H 02/17/25 11:40 Blood Pressure 152/79 H 02/17/25 10:39 Pulse Oximetry 98 02/17/25 11:40 Oxygen Delivery Method Nasal Cannula 02/17/25 11:37 Oxygen Delivery Flow Rate 4 02/17/25 11:37 Medical Decision Making MDM Narrative Medical decision making narrative: Patient is a 54-year-old male, history significant for COPD not on home oxygen and wna-cobyirq-gbinacbyq type 2 diabetes, presenting to the emergency department for 3-day history of flulike symptoms and shortness of breath. His vital signs on arrival were significant for hypertension, tachycardia, tachypnea, and hypoxia saturating 85% on room air. His saturations improved to 95% on 4 L nasal cannula. The patient's bilateral expiratory wheezing and appears to be mild to moderate respiratory distress with dyspnea/positive use of accessory muscles. Differential diagnosis includes pneumonia, COVID/pneumonia, COPD exacerbation, ACS, pneumothorax, or other electrolyte/metabolic derangement. I did consider PE, however the patient has a Well's Score of 1.5 for tachycardia, putting him in the low risk group (1.3% chance). IV was established and laboratory studies were obtained. COPD exacerbation was treated with nebulized albuterol/ipratropium x 3 treatments and IV Solu-Medrol. 12 Lead EKG: Normal sinus rhythm at a rate of 91. Left anterior fascicular block. No ST segment elevations. QRS, MT, and QTc interval within normal limits. Unchanged compared to prior EKG from 08/03/2023. Final impression: normal sinus rhythm with chronic left anterior fascicular block. No evidence of acute myocardial ischemia Chest x-ray independently reviewed/interpreted by myself demonstrated no acute cardiopulmonary process. Laboratory studies were unremarkable. No significant electrolyte or metabolic derangement. No evidence of acute kidney injury. No anemia, leukocytosis, or thrombocytopenia. BNP and troponin nonelevated. COVID/flu swabs negative. CT angiography of the chest demonstrated no evidence of acute PE or focal consolidation to suggest pneumonia. On reevaluation, the patient remains severely dyspneic and he is persistently wheezing on repeat lung auscultation. He is still requiring supplemental oxygen, which is new for him. I do believe he warrants admission to the hospital for further treatment. I did empirically treat him with IV ceftriaxone and IV doxycycline for community-acquired pneumonia coverage. I discussed the patient with Dr. Anderson who accepted the patient to his service. At the time of admission, the patient is breathing more comfortably on 4 L nasal cannula saturating 95%. FINAL IMPRESSION: #Acute hypoxic respiratory failure secondary to COPD exacerbation DISPOSITION: Admitted to the hospital CONDITION: Fair Lab Data Lab results reviewed: Yes I reviewed the patient's lab results Labs: Lab Results 02/17/25 02/17/25 Range/Units 09:50 10:00 WBC 10.9 (4.0-11.0) 10^3/uL RBC 5.96 (4.70-6.10) 10^6/uL Hgb 16.4 (14.0-18.0) g/dL Hct 49.2 (42.0-54.0) % MCV 82.6 (80.0-94.0) fL MCH 27.5 (25.9-34.0) pg MCHC 33.3 (29.9-35.2) g/dL RDW 15.2 H (11.0-15.0) % Plt Count 186 (150-450) 10^3/uL MPV 10.1 (9.5-13.5) fL Seg Neuts % (Manual) 85.0 H (43.0-75.0) Band Neutrophils % 4.0 (0-5) % Lymphocytes % (Manual) 5.0 L (20.5-60.0) % Monocytes % (Manual) 5.0 (1.7-12.0) % Eosinophils % (Manual) 0.0 L (0.9-7.0) % Basophils % (Manual) 1.0 (0.2-2.0) % Neutrophils # (Manual) 9.26 H (1.4-6.5) 10^3/uL Band Neutrophils # 0.4 H (0.0-0.3) 10^3/uL Lymphocytes # (Manual) 0.54 L (1.20-3.80) 10^3/uL Monocytes # (Manual) 0.54 (0.30-0.80) 10^3/uL Eosinophils # (Manual) 0.00 (0.00-0.70) 10^3/uL Basophils # (Manual) 0.10 (0.00-0.10) 10^3/uL Sodium 137 (136-145) mmol/L Potassium 4.2 (3.5-5.1) mmol/L Chloride 99 (98-107) mmol/L Carbon Dioxide 33.3 H (21.0-32.0) mmol/L Anion Gap 8.9 BUN 10.0 (7.0-18.0) mg/dL Creatinine 1.10 (0.70-1.30) mg/dL Est GFR ( Amer) >60 (>=60 mL/min/1.73m^2) Est GFR (Non-Af Amer) >60 (>=60 mL/min/1.73m^2) BUN/Creatinine Ratio 9.1 Glucose 150 H (74-106) mg/dL Calcium 8.9 (8.5-10.1) mg/dL Troponin I High Sens 5.8 (4.0-76.1) pg/mL NT-Pro-B Natriuret Pep 263.0 (<=900.0) pg/mL Influenza Type A Ag Negative Influenza Type B Ag Negative SARS-CoV-2 Ag (CV2AG) Negative (NEGATIVE) Imaging Data Chest x-ray: Attestation: I personally reviewed and interpreted this imaging study as follows: Radiologist's impression: ITS Impressions Chest X-Ray 02/17/25 10:03 IMPRESSION: No acute process. Impression dictated by: Jona Mack M.D. 02/17/2025 11:22 AM Dictation Location: [facility] Electronically authenticated by: [id number] Y Date: 02/17/2025 11:22 Chest CTA 02/17/25 10:45 IMPRESSION: No acute pulmonary embolus. Impression dictated by: Jona Mack M.D. 02/17/2025 1:04 PM Dictation Location: [facility] Electronically authenticated by: [id number] Y Date: 02/17/2025 13:04 ECG Data Attestation: I personally reviewed and interpreted this ECG as follows: Discharge Plan Discharge Chief Complaint: Shortness of Breath/Dyspnea Clinical Impression: Acute hypoxic respiratory failure, COPD exacerbation Patient Disposition: Admitted As Inpatient Time of Disposition Decision: 13:28 Condition: Fair
[2025-02-17 10:16] LABS: Hematocrit 49.2 % (42.0-54.0); Hemoglobin 16.4 g/dL (14.0-18.0); Mean Corpuscular HGB Conc 33.3 g/dL (29.9-35.2); Mean Corpuscular Hemoglobin 27.5 pg (25.9-34.0); Mean Corpuscular Volume 82.6 fL (80.0-94.0); Platelet Count 186 10^3/uL (150-450); Red Blood Count 5.96 10^6/uL (4.70-6.10); White Blood Count 10.9 10^3/uL (4.0-11.0)
[2025-02-17] MEDS: METHYLPREDNISOLONE SOD SUCC PF 40 MG/ML VIAL IVP ×2 (10:16→16:22)
--- NOTE | 2025-02-17 10:20 | PC.NURSE ---
pt states his son came down with something a few days ago and passed it along to him -- has been taking his breathing tx's around the clock, not really helping. checks his SpO2 at home and was ranging from 84%-88%. sstates his is normally 94-95% on RA. Pt does have COPD and is a heavy smoker. BLE swollen, L worse than R. states this is normal for him. L leg is also a cameron red color, which he also states is normal. He is diabetic, but does not take insulin
--- NOTE | 2025-02-17 10:23 | PC.NURSE ---
immediately placed on 4L NC d/t SpO2 being 81% on RA.
[2025-02-17 10:28] LABS: SARS-CoV-2 Ag NEGATIVE (NEGATIVE)
[2025-02-17 10:37] LABS: Anion Gap 8.9; Blood Urea Nitrogen 10.0 mg/dL (7.0-18.0); Calcium 8.9 mg/dL (8.5-10.1); Carbon Dioxide 33.3 mmol/L (21.0-32.0); Chloride 99 mmol/L (98-107); Estimated GFR (African America >60 (>=60 mL/min/1.73m^2); Estimated GFR (Non-African Ame >60 (>=60 mL/min/1.73m^2); Glucose 150 mg/dL (74-106); NT Pro B Type Natriuretic Pept 263.0 pg/mL (<=900.0); Potassium 4.2 mmol/L (3.5-5.1); Sodium 137 mmol/L (136-145)
[2025-02-17 10:40] LABS: Band Neutrophils Absolute 0.4 10^3/uL (0.0-0.3); Basophils Abs Manual 0.10 10^3/uL (0.00-0.10); Basophils Percent Manual 1.0 % (0.2-2.0); Eosinophils Absolute Manual 0.00 10^3/uL (0.00-0.70); Eosinophils Percent Manual 0.0 % (0.9-7.0); Lymphocytes Absolute Manual 0.54 10^3/uL (1.20-3.80); Lymphocytes Percent Manual 5.0 % (20.5-60.0); Monocytes Absolute Manual 0.54 10^3/uL (0.30-0.80); Monocytes Percent Manual 5.0 % (1.7-12.0); Segmented Neut Absolute Manual 9.26 10^3/uL (1.4-6.5); Segmented Neutrophils % Manual 85.0 (43.0-75.0)
--- OUTSIDE RECORDS SUMMARY | 2025-02-17 10:43 | XMS_ITS | Encounter Summary ---
Author Organization [facility] Address [address], [address] [place] [address] Care Team Providers Care Kettle Loader Name Role Phone Sarika Hydefer CHRIS Kim CNP Primary Care Pro vider Encounter Details DateTypeDepartmentCare Team (Latest Contact Info)Dofphjkbpki52/23/2025bstract [facility] [address] [place] [address] [address] [place] [address] [facility] [address] [address] Social History Tobacco UseTypesPacks/DayYears UsedDateSmoking Tobacco: Every PwyYgiqvxjpkb772 Started: 1985Smokeless Tobacco: NeverAlcohol UseStandard Drinks/WeekCommentsNot Currently0 (1 standard drink = 0.6 oz pure alcohol)Sex and Gender Information ValueDate RecordedSex Assigned at JnmaqQssp57/06/2025 2:44 PM ESTLegal SexMale 12/30/2024 2:42 PM ESTGender OxetekovFwhm04/06/2025 2:44 PM ESTSexual BoklwttreqkNqfgtclp92/06/2025 2:44 PM ESTdocumented as of this encounter Plan of Treatment DateTypeDepartmentCare Team (Latest Contact Info)Sejybmbcbzz44/17/2026 9:00 AM ESTOffice Visit [facility] [address] [place] [address] [address] [place] [address] [facility] [place], [place] [address] [address] F/U 3 MO COPD/OSAdocumented as of this encounter Visit Diagnoses Not on filedocumented in this encounter Care Teams Team MemberRelationshipSpecialtyStart DateEnd Date Jazz Hyde APRN - GAYATRI [address] [id number] PCP - Heindrg94/6/25documented as of this encounter
--- OUTSIDE RECORDS SUMMARY | 2025-02-17 10:43 | XMS_ITS | Clinical Summary ---
Author Organization [facility] Address [address], [address] [place] [address] Care Team Providers Care Meter Calibrator Name Role Phone Jazz Hyde APRN, CNP [...] meals)5Active guaiFENesin 1200 MG TB12 Daily at /30/2025Active ipratropium (ATROVENT) 0.03 % nasal spray 2 [...] for Shortness of Breath 54 g 5Active Glcposa-Dilgqmrzarp-Jqxkxpftjm (BREZTRI AEROSPHERE) 160-9-4.8 MCG/ACT AERO Indications:Centrilobular emphysema [...] patient has not seen a dietitian or scraper operator. He is not following any particular diet. [...] improve with lifestyle modifications (smoking, diet, exercise). oil heaterman (current) use of inhaled meqfzurg55/19/2025 Assessment & Plan (01/12/2025 11:02 AM EST): The patient was counseled to rinse and gargle after use of his steroid- containing inhaler to reducethe risk of oral candidiasis and other potential adverse effects. Centrilobular mkkxdqiih71/02/2017 Assessment & Plan (01/12/2025 11:02 AM EST): [...] would worsen his DM2 and obesity. A bamp-wx-uopd encounter was performed with the patient today [...] & Plan (01/12/2025 11:02 AM EST): A wpib-xk-yogb encounter was performed with the patient today in order to document continued need for positive airway pressure (PAP). -Current DME: [facility] -Compliance was reviewed from 11/24/2024 to 12/23/2024 -Total days used: 30 (100%) days -Total days of use >4 hours: 28/30 (93%) days with median use of 8 hours 58 minutes -Current model: AirCurve 10 VAuto -Current mode: CPAP @ 08mgJ6C -Residual AHI: 0.2 -Median air leak: 5.8L/min New Unit -Compliance was reviewed from 12/23/2024 to 01/11/2025 -Total days used: 20/20 (100%) days -Total days of use >4 hours: 20/20 (100%) days with median use of 9 hours 18 minutes -Current model: AirCurve 10 VAuto -Current mode: BiPAP @ IPAP 70wjQ7T & EPAP 8cmH2O -Residual AHI: 0.5 -Median [...] week. Resolved Problems ProblemNoted DateDiagnosed DateResolved DateAllergic tiggospi15/19/2025 01/12/2025 Encounters DateTypeDepartmentCare OrnkUqtaprejiyj60/23/2025bstract [facility] [address], [address] [place] [address] Ebenezer Frias DO 01/12/2025 8:00 AM ESTOffice Visit [facility] [address], [address] [place] [address] Ebenezer Frias DO Centrilobular emphysema (Primary Dx); MICHA (obstructive sleep apnea); Cigarette nicotine dependence with nicotine-induced disorder; Right lower lobe lung mass; Morbid obesity with BMI of 50.0-59.9; DM2 (diabetes mellitus, type 2); long-term (current) use of 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sfrom Last 3 Months Family History Medical HistoryRelationNameCommentsNo Known ProblemsFatherAsthmaMotherCancer MotherHypertensionMotherRelationNameStatusCommentsFatherMother Social History Tobacco UseTypesPacks/DayYears UsedDateSmoking Tobacco: Every BokHhtwnwpkxe568 Started: 1986Smokeless Tobacco: Never Tobacco Cessation:Ready to Q uit: No; Counseling Given: Yes Alcohol UseStandard Drinks/WeekCommentsNot Currently0 (1 standard drink = 0.6 oz pure alcohol)Sex and Gender InformationValueDate RecordedSex Assigned at Male12/30/2024 2:44 PM ESTLegal KlhMvka47/06/2025 2:42 PM ESTGender IdentityMale 12/30/2024 2:44 PM ESTSexual CuoerwrlfsaUvniczpf82/06/2025 2:44 PM EST Last Filed Vital Signs Vital SignReadingTime TakenCommentsBlood Mpwbyrfv653/7801/12/2025 8:00 AM EST Pmeao657901/12/2025 8:00 AM ABLRruqgjouklj49 ??C (96.8 ??F)01/12/2025 8:00 AM EST Respiratory Lzgf693903/14/2024 8:00 AM ESTOxygen Okyuvaqfdc93%01/12/2025 8:00 AM ESTon room airInhaled Oxygen Concentration--Xxkvkr557 kg (355 lb)01/12/2025 8:00 AM EOYLtsczt055.8 cm (5' 10 )01/12/2025 8:00 AM ESTBody Mass Index50.94 01/12/2025 8:00 AM EST Plan of Treatment DateTypeDepartmentCare Team (Latest Contact Info)Wnddtzqufkj62/17/2026 9:00 AM ESTOffice Visit [facility] Pul[facility] [address], [address] [place] [id number] Ebenezer Frias DO [address] [place] [address] F/U 3 MO COPD/OSAHealth MaintenanceDue DateLast BfbvAslnvpxbC3Z test (Diabetic or Prediabetic)10/12/1979Diabetic foot exam10/12/19791022Tsszdq88/18/1980Depression Kbaenr0410/11/1981HIV wkwxhq4010/11/1984Diabetic Alb to Cr ratio (uACR) test 10/12/1987Diabetic retinal exam10/12/1987GFR test (Diabetes, CKD 3-4, OR last GFR 15-59)10/12/1987Hepatitis C tbhzct1410/12/1987DTaP/Tdap/Td vaccine (1 - Tdap) 1988Hepatitis B vaccine (1 of 3 - 19+ 3-dose series)1988Colonoscopy 2014Colorectal Cancer Pnnuyo6910/11/2014FIT/FOBT: Average risk2014 Fecal-DNA (Cologuard): Average risk2014Sigmoidoscopy/CT colonography 2014Lung Cancer Screening &/or Exuknlkkxc31/18/2020Shingles vaccine (1 of 2)10/12/2019Flu vaccine (#1)509/, 12/05/2021, 12/02/2020, Additional history existsCOVID-19 Vaccine ( season)2024 11/16/2022, 12/05/2021, 12/23/2020, Additional history existsAnnual Wellness Visit (Medicare)12/30/2024Pneumococcal 50+ years YdlxcaqCsfbxbhlq52/25/2025 Hepatitis A vaccineAged OutNo longer eligible based [...] Date Jazz Hyde APRN - GAYATRI [address] [place] [address] [facility]12/30/24
--- OUTSIDE RECORDS SUMMARY | 2025-02-17 10:43 | XMS_ITS | Clinical Summary ---
Author Organization [facility] Address [id number] [address] [place] [address] Care Team Providers Care Crm Solution Architect Name Role Phone Jazz Hyde Primary Care Provid er Encounters DateTypeDepartmentCare SsmiTthviimbrcm18/25/2025Orders Only [facility] - Monitor [address] [phone] Kimberley Nguyen RCP from Last 3 Months Social History Tobacco UseTypesPacks/DayYears UsedDateSmoking Tobacco: Never AssessedSex and Gender InformationValueDate RecordedSex Assigned at BirthNot on fileLegal Sex Male01/04/2025 2:33 PM ESTGender IdentityNot on fileSexual OrientationNot on file Plan of Treatment Health MaintenanceDue DateLast DoneCommentsDepression Rtcjwpplv52/18/1982Tobacco Vnyhqrilz29/18/1982Adult BMI Iedyxepxa62/18/1988DTaP,Tdap and Td Vaccines (1 - Tdap)1988Zoster (Shingles) Vaccine (1 of 2)10/12/2019COVID-19 Vaccine ( - 2024- season)5011/16/2022, 12/05/2021, 12/23/2020, Additional history existsInfluenza Gvjpvun67/01/077137/, 11/16/2022, 12/05/2021, Additional history exists Medical Devices Not on file Procedures Procedure NamePriorityDate/TimeAssociated DiagnosisCommentsNOCTURNAL PULSE NWUVUEDGHnmgmns82/19/2025 8:16 AM EST Primary sleep apnea of , unspecified type from Last 3 Months Results * Nocturnal Pulse Oximetry - [facility] Monitor Program (01/12/2025 8:16 AM EST)Specimen (Source)Anatomical Location / LateralityCollection Method / VolumeCollection TimeReceived Time Narrative MANUALLY TRANSCRIBED RESULTS - 01/12/2025 8:16 AM EST Pulse Oximetry Report Recording Information Site of recording: Home Type: Nocturnal Respiratory Support: ??(BiPAP with 2 lpm oxygen in line) O2 Flow: 2 LPM Results: On Room Air Resting SaO2: 93 % Resting HR: 100 bpm On O2 O2: 2 LPM Nocturnal SaO2: (Nocturnal Pulse ox doen on 2 lpm and Bipap. 75-99%. Spo2<89%: 0.8 min.) Nocturnal HR: ??(66-110 bpm) Comments: Noct pox on BiPAP and 2 lpm oxygen. Respiratory Therapist: Belkys Partida RCP Authorizing ProviderResult TypeResult StatusNicole Lodi [facility] ORDERABLESFinal ResultPerforming OrganizationAddressCity/State/ZIP CodePhone Number MANUALLY TRANSCRIBED RESULTS from Last 3 Months Insurance Care Teams Team MemberRelationshipSpecialtyStart DateEnd Date Jazz Hyde APRN-CHARLES [address] [place] [address] PCP - GeneralNurse Nqrbefznlkie46/11/25
--- OUTSIDE RECORDS SUMMARY | 2025-02-17 10:43 | XMS_ITS | Clinical Summary ---
Author Organization [facility] Address [address] [place] [address] Care Team Providers Care Dining Room Coordinator Name Role Phone Pato Denson MD Primary Care Provider [phone] Antoinette Jeong MULTIMEDIA PROJECT MANAGER Unavailable [phone] Allergies No known active allergies Medications MedicationSigDispense [...] TAKE 1 (ONE) TABLET DAILY NEEDED FOR QEJHZTWH77/17/2020Active Alcohol Prep Pads PadM USE 1 PAD [...] pulmonary disease (COPD)10/10/2019PND (paroxysmal nocturnal dyspnea)01/23/2018 Cigarette lfspgm5204/01/2017Centrilobular xyojfafui30/02/2017Obstructive sleep apnea11/25/2016Tobacco abuse hoixrncf44/02/2017Bilateral edema of lower bmbrybtvu04/02/2017 Family History Medical HistoryRelationCommentsCancerMotherHypertensionMotherRelationStatus CommentsFatherAliveMotherDeceased Social History Tobacco UseTypesPacks/DayYears UsedDateSmoking Tobacco: Every GtlLmgjvauxjo564 Smokeless Tobacco: Never Tobacco Cessation:Ready to Q uit: Yes; Counseling Given: Yes Alcohol UseStandard Drinks/WeekCommentsNo0 (1 standard drink = 0.6 oz pure alcohol)Sex and Gender InformationValueDate RecordedSex Assigned at BirthNot on fileLegal FooGvjb2711/01/2013 12:57 PM EDTGender ZspcygvgWhtq99/30/2018 1:04 PM ESTSexual XttynhreabhLevfafvi91/30/2018 1:04 PM EST Last Filed Vital Signs Vital SignReadingTime TakenCommentsBlood Kicgjeua078/75010/10/2019 11:13 AM EDT Nsjiw60689/16/2020 11:13 AM HDCIhnpcgczygp61.8 ??C (98.3 ??F)10/10/2019 8:08 AM EDTRespiratory Tsiq378610/10/2019 11:13 AM EDTOxygen Lrandmbtqu58%10/10/2019 11:13 AM EDTInhaled Oxygen Concentration--Gdpxqh066.1 kg (363 lb 15.7 oz)10/10/2019 3:56 AM EUIQpuxqt989.8 cm (5' 10 )10/09/2019 10:37 PM EDTBody Mass Index52.23 10/09/2019 10:37 PM EDT Plan of Treatment Health MaintenanceDue DateLast DoneCommentsCT Ctevjrvgbfpy84/18/1970Colonoscopy 1969Colorectal Cancer Screening/Kjxkgbfyva17/18/1970Fecal DNA1969 Fecal occult blood test (FOBT,FIT)1969PSA Level1969Wellness Visit 1972Depression Screening/Follow-Up (PHQ-2/9)1981HIV Screening 1984Hepatitis C Uzhetmykx08/18/1988Hepatitis B Vaccines (1 of 3 - 19+ [...] Rutledgecovaughn TypeRelation to PatientDate of BirthPhone Billing AddressPersonal/SnsurgYjht26/18/1971 [phone] (Home) [address] [place] [address] Advance Directives For more information, please contact: [phone] * Full Code (Latest Code Status on File) Date ActivatedDate InactivatedComments10/10/2019 4:19 AM10/10/2019 4:28 PM Care Teams Team MemberRelationshipSpecialtyStart DateEnd Date Pato Denson MD PCP - GeneralInternal Medicine06/17/14 Antoinette Jeong, MULTIM[employer] PROJECT MANAGER [address] [address] Nurse PractitionerPulmonology10/21/19
--- OUTSIDE RECORDS SUMMARY | 2025-02-17 10:44 | XMS_ITS | Clinical Summary ---
Author Organization [facility] Address [address] [place] [address] Care Team Providers Care Ice Hockey Coach Name Role Phone Unavailable Primary Care Provider Unavailabl e Social History Tobacco UseTypesPacks/DayYears UsedDateSmoking Tobacco: Never AssessedSex and Gender InformationValueDate RecordedSex Assigned at BirthNot on fileLegal Sex Male09/04/2023 4:04 PM EDTGender IdentityNot on fileSexual OrientationNot on file Plan of Treatment Not on file Insurance
--- OUTSIDE RECORDS SUMMARY | 2025-02-17 10:44 | XMS_ITS | Patient Health Record ---
Author Organization The [facility] in [place] Address [address] [place] [address] Care Team Providers Care Exit Booth Agent Name Role Phone Jazz Hyde CNP Primary Care Provider U kristyangie RoryAnny Unavailable [phone] Ebenezer Frias Unavailable [phone] Allergies No Known Allergies Reason For Referral [...] 90 DaysActiveglipiZIDE 10 MGOral; Duration: 90 DaysActiveIpratropium [place] 0.03 %Nasal; Duration: 90 DaysActive Victoza 18 MG/3MLas directed Trwjjsmxtrpv11/05/2025ActiveKlor-Con M20 20 MEQ Oral; Duration: 90 DaysActiveIpratropium-Albuterol [...] mcg/0.3 mL Unknown 11/16/2022 Administered Flu, Flucelvax (64189) 1 yrs+, single-dose syringe (5281-1854)Rrxpufe5111/16/2022 Administered Social History Tobacco Use: Social History [...] Risk Notes Problem Chronic obstructive pulmonary disease (93338031) Chronic obstructive pulmonary disease, unspecified (J44.9) ActiveconfirmedProblemPolyneuropathy due to type 2 diabetes mellitus (573635178) Type 2 diabetes mellitus with diabetic polyneuropathy (E11.42)Activeconfirmed ProblemFoot ulcer due to type 2 diabetes mellitus (0594353369325)Type 2 diabetes mellitus with foot ulcer (E11.621)ActiveconfirmedProblemChronic ulcer of foot (196106813)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)ActiveconfirmedProblemLong-term current use of 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 (158822342)USP (current) use of 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s (Z79.51)Activeconfirmed ProblemMorbid obesity (647580850)Morbid obesity (E66.01)ActiveconfirmedProblem COPD - Chronic obstructive pulmonary disease (64102402)COPD (chronic obstructive pulmonary disease) (J44.9)ActiveconfirmedProblemObstructive sleep apnea syndrome (89688000)MICHA (obstructive sleep apnea) (G47.33)ActiveconfirmedProblemDiabetes mellitus type 2 (disorder) (18512031)DM2 (diabetes mellitus, type 2) (E11.9) ActiveconfirmedProblemMental disorder caused by drug (244382410)Cigarette nicotine dependence with nicotine-induced disorder (F17.219)Activeconfirmed ProblemLung field abnormal (345407801)Right lower lobe lung mass (R91.8)Active confirmedProblemBody mass index 40+ - morbidly obese (589218030)Body mass index [BMI] 50.0-59.9, adult (Z68.43)Activeconfirmed Vital [...] Encounter Location Date Provider Diagnosis [facility] [address] [place] [address] 03/31/2024 Ebenezer Frias COPD (chronic obstructive pulmonary disease) J44.9 ; Cigarette nicotine dependence with nicotine-induced disorder F17.219 ; Morbid obesity E66.01 and Body mass index [BMI] 50.0-59.9, adult Z68.43 [facility] [address] [place] [address] 08/11/2024 Ebenezer Frias COPD (chronic obstructive pulmonary disease) J44.9 ; Right lower lobe lung mass R91.8 ; Cigarette nicotine dependence with nicotine-induced disorder F17.219 ; MICHA (obstructive sleep apnea) G47.33 ; DM2 (diabetes mellitus, type 2) E11.9 ; Morbid obesity E66.01 ; USP (current) use of 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s Z79.51 and Body mass index [BMI] 50.0-59.9, adult Z68.43 [facility] [address] [place] [address] 03/25/2024 [facility] Pulmonary Medicine [id number] [place] [address]/ [facility] Medicine [address] [place] [address] 09/06/2024[facility] Medicine [address] [place] [address]/21/2025[facility] Assessments Encounter Date Diagnosis (ICD [...] hours later, he can then use DuoNeb. Zadf-eq-yljz encounter performed with the patient to document continued need for a nebulizer with nebulized medications. -Current nebulized medications: DuoNeb -Symptom control: Better with use -Reported side or adverse effects: None -Recommendations: Continue DuoNeb. Renew/reorder/refill nebulizer and supplies. 03/31/2024OPD (chronic obstructive pulmonary disease) (ICD-10 - J44.9) Pzvz-rh-nnza encounter performed with the patient to document [...] adverse effects for him. I voiced that Bradley send in an Rx for prednisone taper [...] Z68.43)08/11/2024OSA (obstructive sleep apnea) (ICD-10 - G47.33) Psvl-qx-txxr encounter performed with the patient to document continued need for PAP therapy. -Compliance was reviewed from 07/12/2024 - 08/10/2024 -Total days used: 30 (100%) -Total of all days >4 hours of use: 30/30 (100%) -Current model, mode, & pressure: AirCurve 10 VAuto [id number] -Residual AHI: 0.2 -Air leak (median): 1.6L/min -Mask/harness fitting: No complaints -Sleep quality: Better with PAP use -Daytime hypersomnolence: Decreased with PAP use -Recommendations: Superb compliance with voiced benefit and no concerns expressed today. Continue CPAP @ current settings @ HS/naps. -Note: This smwg-nj-tnaz visit comes with my authorization that the [...] to annual LDCT screening. Patient voiced understanding. Iley-uk-ujkc encounter performed with the patient to document continued need for PAP therapy. -Compliance was reviewed from 01/10/2024 - 02/08/2024 -Total days used: 30 (100%) -Total of all days >4 hours of use: 30/30 (100%) -Current model, mode, & pressure: AirCurve 10 VAuto [id number] -Residual AHI: 0.2 -Air leak (95th percentile): 49.8L/min -Mask/harness fitting: No complaints -Sleep quality: Sleeps well with limited nocturnal awakenings -Daytime hypersomnolence: Feels well-rested in the morning -Recommendations: Maintain superb compliance without any significant issues. He loves his machine and cannot sleep without it. MICHA has resolved with use. Continue CPAP @ current settings @ HS/naps. 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
--- NOTE | 2025-02-17 10:45 | CT_ITS ---
The [address] [address] Patient Name: FRANKO GUERIN MRN: [id number] date: 1970 Sex: M Assigned Patient Location: ER Current Patient Location: ER Accession/Order Number: [id number] Exam Date: 02/17/2025 12:05 Report Date: 02/17/2025 13:04 At the request of: DIOGO KLINE DO Procedure: CT angio chest CTA Chest with PE protocol TECHNIQUE: Axial imaging with 2-D and 3-D reconstruction. The CT exam was performed using one or more the following dose reduction techniques: Automated exposure control, adjustment of the MA and/or Kv according to patient size, or use of the iterative reconstruction technique. History: Acute dyspnea COMPARISON: 02/06/2024 THYROID: Unremarkable TRACHEA AND BRONCHI: Patent ESOPHAGUS: Unremarkable. HEART: Within normal limits PERICARDIAL EFFUSION: None CORONARY ARTERY CALCIFICATION: None MEDIASTINUM: No adenopathy. No pneumoperitoneum. No mediastinal hematoma. PULMONARY WILFREDO: No hilar mass or adenopathy is seen. THORACIC AORTA Unremarkable PULMONARY EMBOLUS: None LUNG NODULE None LUNGS: Right posterior basilar scarring. No new consolidation. Lingular atelectasis/scarring. PLEURAL EFFUSION: None PNEUMOTHORAX: No pneumothorax seen. CHEST WALL: No abnormality AXILLA: Unremarkable BONY STRUCTURES Intact UPPER ABDOMEN: Images of the upper abdomen are noncontributory. CT/CT angio chest IMPRESSION: No acute pulmonary embolus. Impression dictated by: Jona Mack M.D. 02/17/2025 1:04 PM Dictation Location: [email or web address] Electronically authenticated by: [id number] Y Date: 02/17/2025 13:04
[2025-02-17] MEDS: ALBUTEROL SULFATE 2.5 MG/3 ML VIAL NEB IH ×2 (11:35→15:57)
--- NOTE | 2025-02-17 12:18 | PC.NURSE ---
PT UNABLE TO LAY FLAT DURING CTA -- INFORMED DR KLINE. GOT A BREATHING TX WHEN HE GOT BACK, THEN WILL TRY AGAIN
[2025-02-17] MEDS: DOXYCYCLINE HYCLATE 100 MG in 0.9 % SODIUM CHLORIDE 100 ML IV (12:29)
[2025-02-17] MEDS: ENOXAPARIN SODIUM 40 MG/0.4 ML SYRINGE SUBQ (16:22)
[2025-02-17] MEDS: INSULIN ASPART 300 UNIT/3 ML PEN SUBQ ×2 (16:47→21:09)
[2025-02-17] MEDS: IPRATROPIUM/ALBUTEROL SULFATE 3 ML AMPUL.NEB IH (20:02)
--- NOTE | 2025-02-17 20:13 | PC.NURSE ---
pt placed on hospital BiPAP by RT
[2025-02-17] MEDS: LISINOPRIL 10 MG TABLET PO (21:03)
[2025-02-17] MEDS: GLIPIZIDE 5 MG TABLET PO (21:03)
[2025-02-18] VITALS (26 sets, daily range): BP systolic 111–141; BP diastolic 54–81; PULSE 61–100; TEMP 36.3–36.8; O2SAT 86–98
[2025-02-18] MEDS: METHYLPREDNISOLONE SOD SUCC PF 40 MG/ML VIAL IVP ×2 (00:05→08:21)
[2025-02-18] MEDS: ALBUTEROL SULFATE 2.5 MG/3 ML VIAL NEB IH ×2 (00:10→05:30)
[2025-02-18] MEDS: PANTOPRAZOLE SODIUM 40 MG TABLET.DR PO (05:31)
[2025-02-18 05:51] LABS: Hematocrit 47.1 % (42.0-54.0); Hemoglobin 15.5 g/dL (14.0-18.0); Immature Granulocytes Abs Auto 0.04 10^3/uL (0.00-0.03); Immature Granulocytes Pct Auto 0.5 % (0.0-0.5); Lymphocytes Absolute Auto 0.4 10^3/uL (1.2-3.8); Mean Corpuscular HGB Conc 32.9 g/dL (29.9-35.2); Mean Corpuscular Hemoglobin 27.1 pg (25.9-34.0); Mean Corpuscular Volume 82.3 fL (80.0-94.0); Platelet Count 167 10^3/uL (150-450); Red Blood Count 5.72 10^6/uL (4.70-6.10); White Blood Count 8.1 10^3/uL (4.0-11.0)
[2025-02-18 06:05] LABS: Anion Gap 14.7; Blood Urea Nitrogen 12.0 mg/dL (7.0-18.0); Calcium 8.6 mg/dL (8.5-10.1); Carbon Dioxide 30.7 mmol/L (21.0-32.0); Chloride 99 mmol/L (98-107); Estimated GFR (African America >60 (>=60 mL/min/1.73m^2); Estimated GFR (Non-African Ame >60 (>=60 mL/min/1.73m^2); Glucose 184 mg/dL (74-106); Magnesium 2.2 mg/dL (1.8-2.4); Potassium 4.4 mmol/L (3.5-5.1); Sodium 140 mmol/L (136-145)
--- NOTE | 2025-02-18 08:00 | ECG_ITS ---
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 Measurements Intervals [place] Rate: 69 P: 107 NE: 177 QRS: -52 QRSD: 93 T: 38 QT: 404 QTc: 435 Interpretive Statements SINUS RHYTHM LOW QRS VOLTAGE IN PRECORDIAL LEADS [QRS DEFLECTION < 1.0 mV IN CHEST LEADS] PATTERN CONSISTENT WITH PULMONARY DISEASE INCOMPLETE RIGHT BUNDLE BRANCH BLOCK [90+ ms QRS DURATION, TERMINAL R IN V1/V2, 40+ ms S IN I/aVL/V4/V5/V6] LEFT ANTERIOR FASCICULAR BLOCK [QRS AXIS <= -45, QR IN I, RS IN II] Abnormal ECG Compared to ECG 02/17/2025 10:05:52 Low QRS voltage now present Electronically Signed On 02-18-2025 7:20:50 EST by MORGAN EATON M.D.
[2025-02-18] MEDS: GLIPIZIDE 5 MG TABLET PO ×2 (08:21→21:56)
[2025-02-18] MEDS: MONTELUKAST SODIUM 10 MG TABLET PO (08:21)
[2025-02-18] MEDS: ATORVASTATIN CALCIUM 20 MG TABLET PO (08:21)
[2025-02-18] MEDS: LISINOPRIL 10 MG TABLET PO (08:21)
[2025-02-18] MEDS: INSULIN ASPART 300 UNIT/3 ML PEN SUBQ ×3 (08:21→21:57)
--- NOTE | 2025-02-18 08:45 | CM.NOTE ---
Rounds made with Dr. Anderson, discussed diagnosis and plan of care with pt. Pt continues to require oxygen. Pt does not wear home oxygen. Pt does wear home BIPAP and has oxygen bleed in at night. Pt on BIPAP this am on rounding, RN will change control manager to NC as tolerated. No discharge today, pt inpatient status.
[2025-02-18] MEDS: IPRATROPIUM/ALBUTEROL SULFATE 3 ML AMPUL.NEB IH ×3 (09:35→20:34)
--- NOTE | 2025-02-18 09:54 | PM.HP ---
HPI H&P: HPI History of Present Illness Chief complaint: HYPOXIC RESPIRATORY FAILURE SECONDARY TO COPD EXAC Narrative: Mr. Rutledge is a 54-year-old gentleman with a known diagnosis of COPD. He is a smoker. He continues to smoke half a pack to a pack daily. He has been a smoker for 40 years. He came in with cough, wheezing and congestion. He was found to have hypoxic respiratory failure. He is requiring 6 to 8 L of oxygen. No chest pain or palpitation Cough productive to yellow sputum. Influenza and COVID are negative Patient also has sleep apnea for which he uses BiPAP machine at home with oxygen supplementation. Opioid HPI Opioid Management Most Recent Pain and Opioid Data: Last Pain Assessment Today, 09:00 Last ORT Total Score 0 02/17/25, 14:32 Last ORT Risk Category Low Risk 02/17/25, 14:32 PFSH PFSH Social History Highest level of school completed/degree received: high school graduate Little interest or pleasure in doing things: not at all Feeling down, depressed, or hopeless: not at all Meds Home Medications and Allergies Home Medications ?Medication ?Instructions ?Recorded ?Confirmed ?Type albuterol sulfate 90 mcg/actuation 2 puff inhalation Q4H PRN 08/02/23 02/17/25 History aerosol inhaler (Ventolin HFA) shortness of breath or wheezing atorvastatin 20 mg tablet 20 mg PO DAILY 08/02/23 02/17/25 History budesonide 160 mcg-glycopyr 9 2 inh inhalation DAILY PRN 08/02/23 02/17/25 History mcg-formot 4.8 mcg/actuation HFA shortness of breath inhaler (Breztri Aerosphere) glipizide 10 mg tablet 10 mg PO BID 08/02/23 02/17/25 History guaifenesin 1,200 mg tablet, 1,200 mg PO .QHS 08/02/23 02/17/25 History extended release 12 hr (Mucus Relief ER) lisinopril 5 mg tablet 5 mg PO DAILY 08/02/23 02/17/25 History metformin 1,000 mg tablet 1,000 mg PO BID 08/02/23 02/17/25 History montelukast 10 mg tablet 10 mg PO DAILY 08/02/23 02/17/25 History omeprazole 40 mg capsule,delayed 40 mg PO DAILY 08/02/23 02/17/25 History release ipratropium 0.5 mg-albuterol 3 mg 3 ml inhalation Q6H 02/17/25 02/17/25 History (2.5 mg base)/3 mL nebulization soln ipratropium bromide 21 mcg (0.03 2 spray intranasal BID 02/17/25 02/17/25 History %) nasal spray liraglutide 0.6 mg/0.1 mL (18 mg/3 1.8 mg subcut Q24H 02/17/25 02/17/25 History mL) subcutaneous pen injector potassium chloride 20 mEq 20 meq PO DAILY 02/17/25 02/17/25 History tablet,extended release(part/cryst) Allergies Allergy/AdvReac Type Severity Reaction Status Date / Time No Known Drug Allergies Allergy Verified 02/17/25 09:57 Exam Narrative Exam Narrative: [pt is awake and alert. oriented to place, time and person, morbidly obese. Patient weighs 170 kg, BMI is 53. Mild respiratory distress HEENT: [place] conjunctiva and NL buccal mucosa Neck: Supple, no tenderness Endocrine: No Thyromegaly. Vascular: No JVD or carotid bruit. Lymphatic: No cervical lymphadenopathy. Chest: Bilateral wheezing or rhonchi. Heart RRR, no extra sound or murmur. Abd: Soft, no tenderness, no rebound and no rigidity. Increase abd girth therefore clinically I could not exclude the possibility of intra abd mass or organomegaly. LE: No cyanosis or clubbing, no varices. +1 pitting edema in both legs Neuro: A A O. Nl speech, comprehension and attention. Nl and symetrical motor and tone examination through out. []] Constitutional Vital Signs, click to edit/add: Last Vital Signs Temp 97.8 F 02/18/25 07:35 Pulse 71 02/18/25 08:00 Resp 30 H 02/18/25 05:30 BP 141/81 02/18/25 07:35 Pulse Ox 91 L 02/18/25 09:21 O2 Del Method High Flow Nasal Cannula 02/18/25 09:21 O2 Flow Rate 8 02/18/25 09:21 FiO2 35 02/17/25 20:20 Results Labs Labs: Short CBC 02/17/25 02/18/25 Range/Units 09:50 05:42 WBC 10.9 8.1 (4.0-11.0) 10^3/uL Hgb 16.4 15.5 (14.0-18.0) g/dL Hct 49.2 47.1 (42.0-54.0) % Plt Count 186 167 (150-450) 10^3/uL BMP 02/17/25 02/18/25 09:50 05:42 Sodium 137 140 Potassium 4.2 4.4 Chloride 99 99 Carbon Dioxide 33.3 H 30.7 BUN 10.0 12.0 Creatinine 1.10 0.94 Glucose 150 H 184 H Calcium 8.9 8.6 Assessment and Plan Assessment and Plan (1) COPD exacerbation: (2) Acute hypoxic respiratory failure: Plan Acute hypoxic respiratory failure. Acute COPD exacerbation Acute bronchitis CTA is negative for PE or pneumonia. Influenza and COVID are negative I could not exclude other possible viral or bacterial lung infection including but not limited to mycoplasma, Legionella, adenovirus, parainfluenza, rhino, RSV, human [place] pneumo virus, non-COVID's are, Bordetella and others. I have accepted to admit patient to the medical floor I started him on albuterol, Atrovent, Solu-Medrol and doxycycline. I also started him on Pulmicort Counseling about tobacco addiction and the need to stop. Tobacco addiction. Patient is at risk having lung cancer. Counseling and education were provided. Start patient NicoDerm patch Recommend yearly low-dose radiation CAT scan of the chest to be arranged by PCP to screen for lung cancer Diabetes with hyperglycemia Start patient on sliding scale. Continue to titrate and adjust to keep blood sugar between 125 and 150. DVT prophylaxis. Escalated to subcu Lovenox due to weight. Obesity Diet, exercise and lifestyle modification. Hypertension, poor control Increase his lisinopril to the milligrams twice daily. Continue to titrate and adjust to keep systolic between 135 and 150 Chronic, subacute medical conditions not listed above, abnormal labs and imaging, incidental findings seen on labs and or imaging. These would need to be addressed. Could be addressed later on or in the outpatient setting by PCP collaboration with other needed outpatient providers when time and condition are appropriate.
--- NOTE | 2025-02-18 09:58 | CM.NOTE ---
CM back in to speak with pt regarding COPD, pt is active with Dr. Frias. Pt's plan is to continue with Dr. Frias and verbalizes understanding of importance of preventive care. Pt does have functioning home BIPAP that he is compliant in wearing. Pt states he had his son for Deidra, son had respiratory infection. Pt denies any needs at this time. Pt will continue to f/u with senior drupal developer at discharge.
--- NOTE | 2025-02-18 10:02 | CM.NOTE ---
Important Message From Medicare discussed with pt, pt verbalizes understanding and signs paper. Original given to pt and copy placed on pt's chart.
[2025-02-18] MEDS: DOXYCYCLINE MONOHYDRATE 100 MG CAPSULE PO ×2 (10:12→21:56)
[2025-02-18] MEDS: ENOXAPARIN SODIUM 60 MG/0.6 ML SYRINGE SUBQ ×2 (10:12→21:56)
--- NOTE | 2025-02-18 12:18 | SWNOTE1 ---
SW stopped in to ask pt about his home Bipap. He voiced it is from [facility] [employer] and he does wear it at night. He has a oxygen bleed in as well. He is not sure how much. Pt does not have continuos oxygen at home at this time. FLOYD called [facility] and they did confirm he has home Bipap with bleed in. The settings are are 12/8 with a 2 liter bleed in.
[2025-02-18] MEDS: BUDESONIDE 0.5 MG/2 ML AMPULE NEB IH (20:34)
--- NOTE | 2025-02-18 21:28 | DIETREC ---
Recommend 2200 kcal CCD, OBED diet d/t dx DM, ARF, COPD.
[2025-02-19] VITALS (34 sets, daily range): BP systolic 113–141; BP diastolic 66–77; PULSE 53–122; RESP 14; TEMP 36.2–36.8; O2SAT 91–922
[2025-02-19] MEDS: ALBUTEROL SULFATE 2.5 MG/3 ML VIAL NEB IH ×2 (00:39→05:15)
[2025-02-19] MEDS: METHYLPREDNISOLONE SOD SUCC PF 40 MG/ML VIAL IVP ×3 (01:10→16:45)
[2025-02-19] MEDS: PANTOPRAZOLE SODIUM 40 MG TABLET.DR PO (06:01)
[2025-02-19] MEDS: INSULIN ASPART 300 UNIT/3 ML PEN SUBQ ×4 (07:24→21:15)
[2025-02-19] MEDS: IPRATROPIUM/ALBUTEROL SULFATE 3 ML AMPUL.NEB IH ×3 (08:26→20:13)
[2025-02-19] MEDS: BUDESONIDE 0.5 MG/2 ML AMPULE NEB IH ×2 (08:26→20:13)
[2025-02-19] MEDS: DOXYCYCLINE MONOHYDRATE 100 MG CAPSULE PO ×2 (09:04→21:12)
[2025-02-19] MEDS: ATORVASTATIN CALCIUM 20 MG TABLET PO (09:04)
[2025-02-19] MEDS: MONTELUKAST SODIUM 10 MG TABLET PO (09:04)
[2025-02-19] MEDS: LISINOPRIL 10 MG TABLET PO (09:04)
[2025-02-19] MEDS: GLIPIZIDE 5 MG TABLET PO (09:04)
[2025-02-19] MEDS: ENOXAPARIN SODIUM 60 MG/0.6 ML SYRINGE SUBQ ×2 (09:05→21:12)
[2025-02-19] MEDS: REMOVE PATCH 1 PATCH TOPICAL (09:07)
--- NOTE | 2025-02-19 09:38 | P.PN_ITS ---
Progress Note: Subjective Subjective Interval history: Persistent cough. Less harsh and frequent than before. Persistent subjective shortness of breath. No chest pain palpitation. No abdominal pain, nausea or vomiting. Exam Narrative Exam Narrative: [pt is awake and alert. oriented to place, time and person, morbidly obese. Patient weighs 170 kg, BMI is 53. Mild respiratory distress HEENT: [employer] conjunctiva and NL buccal mucosa Neck: Supple, no tenderness Endocrine: No Thyromegaly. Vascular: No JVD or carotid bruit. Lymphatic: No cervical lymphadenopathy. Chest: Bilateral wheezing or rhonchi. Less prominent compared to yesterday. Heart RRR, no extra sound or murmur. Abd: Soft, no tenderness, no rebound and no rigidity. Increase abd girth therefore clinically I could not exclude the possibility of intra abd mass or organomegaly. LE: No cyanosis or clubbing, no varices. +1 pitting edema in both legs Neuro: A A O. Nl speech, comprehension and attention. Nl and symetrical motor and tone examination through out. []] Constitutional Vital Signs, click to edit/add: Last Vital Signs Temp 98.1 F 02/19/25 07:30 Pulse 53 L 02/19/25 08:00 Resp 20 02/19/25 07:31 BP 113/66 02/19/25 07:30 Pulse Ox 96 02/19/25 08:00 O2 Del Method Nasal Cannula 02/19/25 07:30 O2 Flow Rate 8 02/19/25 07:30 FiO2 35 02/19/25 04:38 Progress Note: A&P Assessment and Plan (1) COPD exacerbation: (2) Acute hypoxic respiratory failure: Plan Acute hypoxic respiratory failure. Acute COPD exacerbation Acute bronchitis CTA is negative for PE or pneumonia. Influenza and COVID are negative I could not exclude other possible viral or bacterial lung infection including but not limited to mycoplasma, Legionella, adenovirus, parainfluenza, rhino, RSV, human [place] pneumo virus, non-COVID's are, Bordetella and others. I have accepted to admit patient to the medical floor I started him on albuterol, Atrovent, Solu-Medrol and doxycycline. I also started him on Pulmicort Counseling about tobacco addiction and the need to stop. Tobacco addiction. Patient is at risk having lung cancer. Counseling and education were provided. Start patient NicoDerm patch Recommend yearly low-dose radiation CAT scan of the chest to be arranged by PCP to screen for lung cancer Diabetes with hyperglycemia Persistent hyperglycemia Increased glyburide to home dose which is 10 mg twice a day Patient may need to be on insulin. Resume metformin now it has been more than 36 hours after CTA completion. Start patient on sliding scale. Continue to titrate and adjust to keep blood sugar between 125 and 150. DVT prophylaxis. Escalated to subcu Lovenox due to weight. Obesity Diet, exercise and lifestyle modification. Hypertension, much better controlled. Continue lisinopril and titrate to keep systolic between 135 and 150. Chronic, subacute medical conditions not listed above, abnormal labs and imaging, incidental findings seen on labs and or imaging. These would need to be addressed. Could be addressed later on or in the outpatient setting by PCP collaboration with other needed outpatient providers when time and condition are appropriate.
[2025-02-19] MEDS: FUROSEMIDE 20 MG/2 ML VIAL IVP ×3 (10:01→21:12)
[2025-02-19] MEDS: METFORMIN HCL 500 MG TABLET 1000 MG PO (16:45)
[2025-02-19] MEDS: GLIPIZIDE 10 MG TABLET PO (21:12)
[2025-02-19] MEDS: POTASSIUM CHLORIDE 10 MEQ ER TABLET PO (21:12)
[2025-02-20] VITALS (27 sets, daily range): BP systolic 109–136; BP diastolic 63–82; PULSE 54–93; RESP 14; TEMP 36.4–36.9; O2SAT 90–99
[2025-02-20] MEDS: ALBUTEROL SULFATE 2.5 MG/3 ML VIAL NEB IH ×3 (00:37→23:59)
[2025-02-20] MEDS: METHYLPREDNISOLONE SOD SUCC PF 40 MG/ML VIAL IVP ×3 (01:31→17:01)
[2025-02-20] MEDS: PANTOPRAZOLE SODIUM 40 MG TABLET.DR PO (05:45)
[2025-02-20 06:01] LABS: Hematocrit 46.3 % (42.0-54.0); Hemoglobin 15.0 g/dL (14.0-18.0); Mean Corpuscular HGB Conc 32.4 g/dL (29.9-35.2); Mean Corpuscular Hemoglobin 27.1 pg (25.9-34.0); Mean Corpuscular Volume 83.7 fL (80.0-94.0); Platelet Count 161 10^3/uL (150-450); Red Blood Count 5.53 10^6/uL (4.70-6.10); White Blood Count 7.3 10^3/uL (4.0-11.0)
[2025-02-20 06:14] LABS: Alanine Aminotransferase 37 U/L (16-63); Albumin Globulin Ratio 1.0; Albumin Level 3.4 g/dL (3.4-5.0); Alkaline Phosphatase 61 U/L (46-116); Anion Gap 8.8; Aspartate Amino Transferase 16 U/L (15-37); Blood Urea Nitrogen 24.0 mg/dL (7.0-18.0); Calcium 8.5 mg/dL (8.5-10.1); Carbon Dioxide 31.8 mmol/L (21.0-32.0); Chloride 101 mmol/L (98-107); Estimated GFR (African America >60 (>=60 mL/min/1.73m^2); Estimated GFR (Non-African Ame >60 (>=60 mL/min/1.73m^2); Globulin 3.5 g/dL; Glucose 236 mg/dL (74-106); Potassium 4.6 mmol/L (3.5-5.1); Sodium 137 mmol/L (136-145); Total Protein 6.9 g/dL (6.4-8.2)
--- NOTE | 2025-02-20 08:24 | P.PN_ITS ---
Progress Note: Subjective Subjective Interval history: Persistent cough. Less harsh and frequent than before. Improvement of subjective shortness of breath. No chest pain palpitation. No abdominal pain, nausea or vomiting. Exam Narrative Exam Narrative: [pt is awake and alert. oriented to place, time and person, morbidly obese. Patient weighs 170 kg, BMI is 53. No respiratory distress at rest HEENT: [place] conjunctiva and NL buccal mucosa Neck: Supple, no tenderness Endocrine: No Thyromegaly. Vascular: No JVD or carotid bruit. Lymphatic: No cervical lymphadenopathy. Chest: Much improved bilateral wheezing or rhonchi. Heart RRR, no extra sound or murmur. Abd: Soft, no tenderness, no rebound and no rigidity. Increase abd girth therefore clinically I could not exclude the possibility of intra abd mass or organomegaly. LE: No cyanosis or clubbing, no varices. +trace pitting edema in both legs Neuro: A A O. Nl speech, comprehension and attention. Nl and symetrical motor and tone examination through out. []] Constitutional Vital Signs, click to edit/add: Last Vital Signs Temp 97.6 F 02/20/25 07:15 Pulse 54 L 02/20/25 08:00 Resp 18 02/20/25 07:15 BP 109/63 02/20/25 07:15 Pulse Ox 96 02/20/25 08:00 O2 Del Method Nasal Cannula 02/20/25 07:15 O2 Flow Rate 8 02/20/25 07:15 FiO2 35 02/20/25 04:57 Progress Note: Objective Labs Labs: Short CBC 02/20/25 Range/Units 05:45 WBC 7.3 (4.0-11.0) 10^3/uL Hgb 15.0 (14.0-18.0) g/dL Hct 46.3 (42.0-54.0) % Plt Count 161 (150-450) 10^3/uL BMP 02/20/25 05:45 Sodium 137 Potassium 4.6 Chloride 101 Carbon Dioxide 31.8 BUN 24.0 H Creatinine 0.97 Glucose 236 H Calcium 8.5 Liver Function 02/20/25 Range/Units 05:45 Total Bilirubin 0.4 (0.2-1.0) mg/dL AST 16 (15-37) U/L ALT 37 (16-63) U/L Alkaline Phosphatase 61 (46-116) U/L Albumin 3.4 (3.4-5.0) g/dL Progress Note: A&P Assessment and Plan (1) COPD exacerbation: (2) Acute hypoxic respiratory failure: Plan Acute hypoxic respiratory failure. Acute COPD exacerbation Acute bronchitis CTA is negative for PE or pneumonia. Influenza and COVID are negative I could not exclude other possible viral or bacterial lung infection including but not limited to mycoplasma, Legionella, adenovirus, parainfluenza, rhino, RSV, human [place] pneumo virus, non-COVID's are, Bordetella and others. I have accepted to admit patient to the medical floor I started him on albuterol, Atrovent, Solu-Medrol and doxycycline. I also started him on Pulmicort Counseling about tobacco addiction and the need to stop. Attempt to wean down oxygen supplementation if possible. Echocardiogram is pending rule out pulmonary hypertension, diastolic dysfunction and/or cardiomyopathy Gentle diuresis due to trace pitting edema suspect right-sided heart failure secondary to pulm hypertension. Obstructive sleep apnea Patient is using BiPAP during sleep and at night. Tobacco addiction. Patient is at risk having lung cancer. Counseling and education were provided. Start patient NicoDerm patch Recommend yearly low-dose radiation CAT scan of the chest to be arranged by PCP to screen for lung cancer Diabetes with hyperglycemia Persistent hyperglycemia Increased glyburide to home dose which is 10 mg twice a day Patient may need to be on insulin. Resume metformin now it has been more than 36 hours after CTA completion. Start patient on sliding scale. Continue to titrate and adjust to keep blood sugar between 125 and 150. DVT prophylaxis. Escalated dose of subcu Lovenox due to weight. Obesity Diet, exercise and lifestyle modification. Hypertension, much better controlled. Continue lisinopril and titrate to keep systolic between 135 and 150. Chronic, subacute medical conditions not listed above, abnormal labs and imaging, incidental findings seen on labs and or imaging. These would need to be addressed. Could be addressed later on or in the outpatient setting by PCP collaboration with other needed outpatient providers when time and condition are appropriate.
[2025-02-20] MEDS: IPRATROPIUM/ALBUTEROL SULFATE 3 ML AMPUL.NEB IH ×3 (08:57→20:29)
[2025-02-20] MEDS: BUDESONIDE 0.5 MG/2 ML AMPULE NEB IH ×2 (08:57→20:29)
[2025-02-20] MEDS: GLIPIZIDE 10 MG TABLET PO ×2 (09:39→20:33)
[2025-02-20] MEDS: METFORMIN HCL 500 MG TABLET 1000 MG PO ×2 (09:39→17:01)
[2025-02-20] MEDS: MONTELUKAST SODIUM 10 MG TABLET PO (09:39)
[2025-02-20] MEDS: ATORVASTATIN CALCIUM 20 MG TABLET PO (09:40)
[2025-02-20] MEDS: ENOXAPARIN SODIUM 60 MG/0.6 ML SYRINGE SUBQ ×2 (09:40→20:33)
[2025-02-20] MEDS: DOXYCYCLINE MONOHYDRATE 100 MG CAPSULE PO ×2 (09:40→20:33)
[2025-02-20] MEDS: LISINOPRIL 5 MG TABLET PO (09:40)
[2025-02-20] MEDS: FUROSEMIDE 20 MG/2 ML VIAL IVP ×2 (09:42→14:26)
[2025-02-20] MEDS: POTASSIUM CHLORIDE 10 MEQ ER TABLET PO ×2 (09:42→20:33)
[2025-02-20] MEDS: REMOVE PATCH 1 PATCH TOPICAL (09:50)
[2025-02-20] MEDS: INSULIN ASPART 300 UNIT/3 ML PEN SUBQ ×3 (11:47→21:29)
[2025-02-21] VITALS (27 sets, daily range): BP systolic 108–136; BP diastolic 66–81; PULSE 56–97; RESP 14; TEMP 36.4–37; O2SAT 91–100
[2025-02-21] MEDS: METHYLPREDNISOLONE SOD SUCC PF 40 MG/ML VIAL IVP ×3 (01:30→17:17)
[2025-02-21] MEDS: ALBUTEROL SULFATE 2.5 MG/3 ML VIAL NEB IH (04:44)
[2025-02-21] MEDS: PANTOPRAZOLE SODIUM 40 MG TABLET.DR PO (05:37)
[2025-02-21] MEDS: INSULIN ASPART 300 UNIT/3 ML PEN SUBQ ×4 (08:15→21:57)
[2025-02-21] MEDS: GLIPIZIDE 10 MG TABLET PO ×2 (08:16→21:04)
[2025-02-21] MEDS: METFORMIN HCL 500 MG TABLET 1000 MG PO ×2 (08:16→17:16)
[2025-02-21] MEDS: LISINOPRIL 5 MG TABLET PO (08:16)
[2025-02-21] MEDS: ATORVASTATIN CALCIUM 20 MG TABLET PO (08:16)
[2025-02-21] MEDS: DOXYCYCLINE MONOHYDRATE 100 MG CAPSULE PO (08:16)
[2025-02-21] MEDS: MONTELUKAST SODIUM 10 MG TABLET PO (08:16)
[2025-02-21] MEDS: ENOXAPARIN SODIUM 60 MG/0.6 ML SYRINGE SUBQ ×2 (08:17→21:04)
[2025-02-21] MEDS: IPRATROPIUM/ALBUTEROL SULFATE 3 ML AMPUL.NEB IH ×3 (09:03→21:48)
[2025-02-21] MEDS: BUDESONIDE 0.5 MG/2 ML AMPULE NEB IH ×2 (09:03→21:48)
--- NOTE | 2025-02-21 09:17 | PM.IMPN1 ---
Progress Note: A&P Assessment and Plan (1) COPD exacerbation: (2) Acute hypoxic respiratory failure: Plan 02/21/25 - continues to have slight expiratory wheezes, we will continue current therapy with exception of switching doxycycline to azithromycin, attempt to wean oxygen and plan for ambulatory walk test tomorrow to determine if acceptable needs for discharge. Follow-up final echo read to determine degree of anticipated pulmonary hypertension. From 02/20/25: Acute hypoxic respiratory failure. Acute COPD exacerbation Acute bronchitis CTA is negative for PE or pneumonia. Influenza and COVID are negative I could not exclude other possible viral or bacterial lung infection including but not limited to mycoplasma, Legionella, adenovirus, parainfluenza, rhino, RSV, human Winslow pneumo virus, non-COVID's are, Bordetella and others. I have accepted to admit patient to the medical floor I started him on albuterol, Atrovent, Solu-Medrol and doxycycline. I also started him on Pulmicort Counseling about tobacco addiction and the need to stop. Attempt to wean down oxygen supplementation if possible. Echocardiogram is pending rule out pulmonary hypertension, diastolic dysfunction and/or cardiomyopathy Gentle diuresis due to trace pitting edema suspect right-sided heart failure secondary to pulm hypertension. Obstructive sleep apnea Patient is using BiPAP during sleep and at night. Tobacco addiction. Patient is at risk having lung cancer. Counseling and education were provided. Start patient NicoDerm patch Recommend yearly low-dose radiation CAT scan of the chest to be arranged by PCP to screen for lung cancer Diabetes with hyperglycemia Persistent hyperglycemia Increased glyburide to home dose which is 10 mg twice a day Patient may need to be on insulin. Resume metformin now it has been more than 36 hours after CTA completion. Start patient on sliding scale. Continue to titrate and adjust to keep blood sugar between 125 and 150. DVT prophylaxis. Escalated dose of subcu Lovenox due to weight. Obesity Diet, exercise and lifestyle modification. Hypertension, much better controlled. Continue lisinopril and titrate to keep systolic between 135 and 150. Chronic, subacute medical conditions not listed above, abnormal labs and imaging, incidental findings seen on labs and or imaging. These would need to be addressed. Could be addressed later on or in the outpatient setting by PCP collaboration with other needed outpatient providers when time and condition are appropriate. Internal Medicine - PN: Subj Subjective Interval history: Feels significantly improved and requesting discharge home, explained that its O2 needs at present at 4 L nasal cannula at rest are unacceptable but will attempted wean over the course of the day and plan for ambulatory walk study tomorrow morning. Patient states that he is aware that he will likely have to be discharged with supplemental oxygen, however the amount of oxygen at this time is the limiting factor to determine discharge. Exam Narrative Exam Narrative: General: cooperative and tired appearing Orientation: alert, awake and oriented x3 Head: normal to inspection Neck: normal visual inspection Cardio: no JVD, regular rate, regular rhythm Chest palpation & inspection: normal inspection of the chest Resp Effort & Inspection: normal respiratory effort at rest, faint bilateral wheezes Abd: soft, non-tender, non-distended Extremities: Warm well perfused, no edema Constitutional Vital Signs, click to edit/add: Last Vital Signs Temp 97.6 F 02/21/25 08:11 Pulse 74 02/21/25 09:07 Resp 18 02/21/25 08:11 BP 136/79 02/21/25 08:16 Pulse Ox 93 L 02/21/25 09:07 O2 Del Method Nasal Cannula 02/21/25 09:07 O2 Flow Rate 4 02/21/25 09:07 FiO2 35 02/21/25 04:44 Internal Medicine - PN: Obj Da Labs Labs: Laboratory Results - last 24 hr 02/20/25 02/20/25 02/21/25 11:31 21:17 07:11 POC Glucose 265 H 251 H 265 H
--- NOTE | 2025-02-21 09:33 | CA_ITS ---
Patient Name: FRANKO GUERIN MR#: [id number] : 1970 Exam Date: 02/21/2025 Ordering Doctor: GARRICK LAMAS ECHOCARDIOGRAM REPORT PROCEDURE: CA ECHO DOPPLER COMPLETE INDICATIONS: COPD, hypoxemia, suspecting pulmonary hypertension COMPARISON: None. DESCRIPTION: COMPLETE ECHOCARDIOGRAM Real-time transthoracic echocardiography with 2D, M-mode, spectral and color flow Doppler performed. QUALITY: Technically difficult due to poor acoustics. 70 348# BSA 2.64 m2 LEFT VENTRICLE: Normal chamber size. Mild concentric left ventricular hypertrophy. Estimated left ventricular ejection fraction is 65%. LV EF: Normal left ventricular ejection fraction, (>55%). DIASTOLIC: Normal diastolic function. ATRIAL SEPTUM: LEFT ATRIUM: Normal chamber size. RIGHT ATRIUM: Mild dilatation. RIGHT VENTRICLE: Mild dilatation. Normal right ventricular systolic function. TRICUSPID VALVE: Normal mobility and thickness. No stenosis with trivial regurgitation. Unable to assess right-sided pressure due to the lack of measurable tricuspid regurgitation. MITRAL VALVE: Normal mobility and thickness. No evidence of mitral valve stenosis. Mild mitral annular calcification. No mitral regurgitation. AORTIC VALVE: Normal trileaflet appearance. No visible sclerosis. Normal leaflet mobility. No evidence of aortic valve stenosis. No aortic regurgitation. AORTIC ROOT: Normal diameter and appearance, measuring 3.8 cm. PULMONIC VALVE: Not well visualized. PERICARDIUM: No evidence of pericardial effusion. IVC: Not well visualized. PLEURA: CONCLUSION: 1. Mild concentric left ventricular hypertrophy with normal systolic function. Estimated LVEF is 65%. 2. Normal right ventricular size and systolic function. 3. Normal diastolic function. 4. No significant valvular dysfunction. 5. Unable to assess right-sided pressures due to lack of measurable tricuspid regurgitation. Adult Echocardiography Procedure Report Left Ventricle LVEDD (3.7 - 5.6 cm): 4.80 cm LVESD (2.2 - 4.0 cm): 3.10 cm LVIVS thickness (0.6 - 1.2 cm): 1.28 cm LVPW thickness (0.5 - 1.0 cm): 1.17 cm e': 0.12 m/s E - e': 6.90 LVOT Max Gradient: 5.18 mm[Hg] LVOT Area (cm2): 1.14 m/s Peak Velocity (LVOT): 1.14 m/s Mean Velocity (LVOT): 0.73 m/s LVOT Diameter 2.42 cm Left Ventricular Ejection Fraction: 65 % Left Atrium LA Volume Index (2D A2C): 22.73 ml/m2 Left Atrium Systolic Dimension: 4.23 cm Mitral Valve MV E to A Ratio: 0.75 Mitral Valve A-Wave Peak Velocity: 1.09 m/s Mitral Valve E-Wave Peak Velocity: 0.82 m/s Right Ventricle Aorta AO Root Diam: 3.80 cm Aortic Valve AoV Area (Peak Santos): 3.54 cm2, 3.54 cm2 AoV Area (VTI): 4.35 cm2, 4.35 cm2 Peak Velocity(Antegrade Flow): 1.47 m/s Peak Gradient(Antegrade Flow): 8.70 mm[Hg] Mean Velocity(Antegrade Flow): 0.95 m/s Mean Gradient(Antegrade Flow): 4.21 mm[Hg] Velocity Time Integral: 28.09 cm Tricuspid Valve Pulmonic Valve Mean Gradient: 2.52 mm[Hg] Mean Velocity: 0.73 m/s Peak Velocity: 1.18 m/s Peak Gradient: 5.60 mm[Hg] Right Atrium Right Atrium Systolic Pressure: 59.97 ml, 59.97 ml Dictated by: Bill Sprague M.D. on 02/21/2025 at 14:27 Approved by: Bill Sprague M.D. on 02/21/2025 at 14:30
--- NOTE | 2025-02-21 10:30 | CM.NOTE ---
Rounds made with Dr. Roldan, discussed with pt plan of care. Pt continues to require 4L NC. Dr. Roldan discussed with pt need for possible oxygen at discharge. Continue treatment as ordered.
[2025-02-21] MEDS: REMOVE PATCH 1 PATCH TOPICAL (10:35)
--- NOTE | 2025-02-21 13:50 | CM.NOTE ---
2nd Important Message From Medicare discussed with pt, pt denies questions or concerns.
[2025-02-21] MEDS: AZITHROMYCIN 500 MG in 0.9 % SODIUM CHLORIDE 250 ML 250 MG IV (18:36)
[2025-02-22] VITALS (17 sets, daily range): BP systolic 98–142; BP diastolic 60–77; PULSE 49–89; RESP 14; TEMP 35.9–36.6; O2SAT 87–99
[2025-02-22] MEDS: METHYLPREDNISOLONE SOD SUCC PF 40 MG/ML VIAL IVP ×2 (01:23→08:15)
[2025-02-22] MEDS: PANTOPRAZOLE SODIUM 40 MG TABLET.DR PO (05:38)
[2025-02-22] MEDS: GLIPIZIDE 10 MG TABLET PO (08:15)
[2025-02-22] MEDS: ATORVASTATIN CALCIUM 20 MG TABLET PO (08:15)
[2025-02-22] MEDS: METFORMIN HCL 500 MG TABLET 1000 MG PO (08:15)
[2025-02-22] MEDS: INSULIN ASPART 300 UNIT/3 ML PEN SUBQ ×2 (08:15→11:59)
[2025-02-22] MEDS: ENOXAPARIN SODIUM 60 MG/0.6 ML SYRINGE SUBQ (08:15)
[2025-02-22] MEDS: MONTELUKAST SODIUM 10 MG TABLET PO (08:15)
[2025-02-22] MEDS: LISINOPRIL 5 MG TABLET PO (08:15)
[2025-02-22] MEDS: REMOVE PATCH 1 PATCH TOPICAL (09:05)
[2025-02-22] MEDS: BUDESONIDE 0.5 MG/2 ML AMPULE NEB IH (09:05)
[2025-02-22] MEDS: IPRATROPIUM/ALBUTEROL SULFATE 3 ML AMPUL.NEB IH (09:05)
--- NOTE | 2025-02-22 11:52 | SWNOTE1 ---
Pt will need home oxygen, 2 liters continuous. Pt already has Bipap and 02 bleed in from [facility]. SW faxed walk test, face sheet, physician note, and prescription to [facility].
--- NOTE | 2025-02-22 12:01 | PM.DS1 ---
DS: Providers Provider Date of admission: 02/17/25 14:03 Primary care physician: SU GARCIA Admitting clinician: Livan Anderson Attending physician on admission: Livan Anderson Attending physician on discharge: LUIS BERRY Discharging clinician: LUIS BERRY DS: Diagnosis Discharge Diagnosis (1) COPD exacerbation: (2) Acute hypoxic respiratory failure: DS: Summary Hospital Course Hospital Course: Ernie Rutledge is a 54-year-old gentleman with a known diagnosis of COPD. He is a smoker. He continues to smoke half a pack to a pack daily. He has been a smoker for 40 years. He came in on 02/18/25 with cough, wheezing and congestion. He was found to have hypoxic respiratory failure, requiring 6 to 8 L of oxygen. No chest pain or palpitation, Cough productive to yellow sputum. Influenza and COVID are negative. Patient also has sleep apnea for which he uses BiPAP machine at home with oxygen supplementation. He is admitted to the regular nursing floor and started on DuoNebs, steroids, and antibiotics. O2 needs improved but continued to need supplemental oxygen at 2 L nasal cannula as confirmed on ambulatory walk study on 02/22/2025. He was discharged home on 02/22/2025 in improved condition with continued course of azithromycin for 2 additional days, cefdinir for 5 days, plans for outpatient follow-up. Time Spent with Patient Time attestation: Total time spent providing and/or coordinating discharge services: Exam Narrative Exam Narrative: General: cooperative and tired appearing Orientation: alert, awake and oriented x3 Head: normal to inspection Neck: normal visual inspection Cardio: no JVD, regular rate, regular rhythm Chest palpation & inspection: normal inspection of the chest Resp Effort & Inspection: normal respiratory effort, faint bilateral expiratory wheeze present Abd: soft, non-tender, non-distended Extremities: Warm well perfused, no edema Constitutional Vital Signs, click to edit/add: Last Vital Signs Temp 97.9 F 02/22/25 07:30 Pulse 89 02/22/25 10:00 Resp 15 02/22/25 07:30 BP 124/76 02/22/25 07:30 Pulse Ox 92 L 02/22/25 10:00 O2 Del Method Nasal Cannula 02/22/25 09:07 O2 Flow Rate 2 02/22/25 09:07 FiO2 35 02/22/25 03:25 DS: Data Data Completed and Pending Labs on day of discharge: Labs from last 24 hours 02/22/25 02/21/25 02/21/25 08:06 21:16 16:13 POC Glucose 192 H 190 H 242 H 02/20/25 16:54 POC Glucose 274 H Discharge Plan Discharge Disposition: Home, Self-Care Condition: Fair Discharge Medications: New azithromycin 500 mg tablet 500 mg PO DAILY 2 Days Qty: 2 0RF Rx Instructions: start on day 2 of therapy cefdinir 300 mg capsule 300 mg PO BID 5 Days Qty: 10 0RF Continued albuterol sulfate [Ventolin HFA] 90 mcg/actuation HFA aerosol inhaler 2 puff INHALATION Q4H PRN (Reason: shortness of breath or wheezing) atorvastatin 20 mg tablet 20 mg PO DAILY Breztri Aerosphere 160-9-4.8 mcg/actuation HFA aerosol inhaler 2 inh INHALATION DAILY PRN (Reason: shortness of breath ) glipizide 10 mg tablet 10 mg PO BID guaifenesin [Mucus Relief ER] 1,200 mg tablet extended release 12hr 1,200 mg PO .QHS lisinopril 5 mg tablet 5 mg PO DAILY metformin 1,000 mg tablet 1,000 mg PO BID montelukast 10 mg tablet 10 mg PO DAILY omeprazole 40 mg capsule,delayed release(DR/EC) 40 mg PO DAILY ipratropium-albuterol 0.5 mg-3 mg(2.5 mg base)/3 mL solution for nebulization 3 ml INHALATION Q6H ipratropium bromide 21 mcg (0.03 %) spray,non-aerosol 2 spray INTRANASAL BID liraglutide 0.6 mg/0.1 mL (18 mg/3 mL) pen injector 1.8 mg SUBCUT Q24H Discontinued potassium chloride 20 mEq tablet,ER particles/crystals 20 meq PO DAILY Print Language: Portuguese Patient Instructions: COPD (Chronic Obstructive Pulmonary Disease) (DC) Forms: Portal Instructions Follow Up Appointments: CHARLES Garza. 03/01/25 @ 10:30am [phone]
--- NOTE | 2025-02-22 12:08 | CM.NOTE ---
Rounds made with Dr. Roldan, discussed plan of care with pt. Pt will be discharged home today. New order received for 2L of oxygen per [place] for [facility].
--- NOTE | 2025-02-22 12:50 | SWNOTE1 ---
FLOYD received a call from Barrera at [facility] and they have everything they need and oxygen is good to be dispensed. Barrera did ask if pt has someone at home to deliver the rest of supplies and if pt was driving himself home? FLOYD unsure, but will check with pt and call Barrera back. FLOYD spoke with pt and let him know about the home oxygen being set up and good to go. FLOYD asked if someone was at the home and could let [facility] in, he stated no. SW asked if drove here? He stated yes. Pt's discharge orders are all in. FLOYD asked pt if he planned on discharging as soon as the nurse goes over paperwork with him? He stated yes. FLOYD asked pt if it was alright for Barrera at [facility] to call him directly to coordinate time of delivery? Pt in agreement with this. Pt provided SW with his cell phone number. SW to call [facility]. FLOYD called Barrera at [facility], but he was on the other line, waiting for call back.
--- NOTE | 2025-02-22 13:23 | PC.NURSE ---
iv and tele dc'd. pt dressed per self and belongings packed. educated on o2 tanks and use. taken to exit via wheelchair. discharged to private vehicle..
--- NOTE | 2025-02-23 11:27 | CM.DCFOLLOWU ---
Person spoke with:Ernie How are you feeling? Good How is your pain? No pain Did you understand your discharge instructions? Yes Do you have any questions about your discharge instructions? No Were you given any prescriptions at discharge? Yes Were you able to get your prescriptions filled? Yes Do you understand how to take your medications as ordered? Yes Do you have any questions about your follow up appointment and do you plan to keep your follow up appointment? No questions. He plans on keeping his follow up appt. Is there anything else that you would like to discuss? No Questions/Comments/Concerns/Other:
== END 2025-02-22 13:16 | disposition home or self-care (01) | DRG 190 ==
LOC: ER 13:28 → MS 14:07
PROVIDERS: Admitting Provider Internal Medicine; Emergency Provider Student in an Organized Health Care Education/Training Program; PCP Nurse Practitioner Family; Visit Provider Internal Medicine
DX: J44.1 Chronic obstructive pulmonary disease with (acute) exacerbation (principal); J96.01 Acute respiratory failure with hypoxia; Z68.43 Body mass index [BMI] 50.0-59.9, adult; J44.0 Chronic obstructive pulmonary disease with (acute) lower respiratory infection; J20.9 Acute bronchitis, unspecified; E11.65 Type 2 diabetes mellitus with hyperglycemia; I10 Essential (primary) hypertension; E66.01 Morbid (severe) obesity due to excess calories; G47.33 Obstructive sleep apnea (adult) (pediatric); F17.210 Nicotine dependence, cigarettes, uncomplicated; Z79.84 Long term (current) use of oral hypoglycemic drugs; Z79.899 Other long term (current) drug therapy
CPT/HCPCS: 36415; 71046; 71275; 80048; 80053; 82948; 83036; 83735; 83880; 84484; 85007; 85025; 85027; 87420; 87804; 87811; 93005; 93306; 94640; 94660; 94761; 96365; 96367; 96375; 99285; 99406; J0456; J0696; J1650; J1938; J2919; Q9967